=== PATIENT | male | born 1930 | race Caucasian/White ===

== ENCOUNTER → 2016-10-07 | Outpatient (CLI) | payer BC ==
[~2016-10-07] MED LIST: BIMA0.01 OPB; BTMOPS5 OPB; CALC200T PO; CALCTAB13 PO; COEN1CAP28 PO; CRD200 PO; FINA5TAB4 PO; FISHOIL PO; HMLI SC; INSDGI SC; INSPMPHMLG SQ; IPRASOL4 INH; LEVO50TA6 PO; LPT/20 PO; OMEG10007 PO; PRED10TA PO; PRVHFAIN INH; RIVA1TAB4 PO; ROSU5TAB9 PO; XRL15 PO; [UNRECOGNIZED DRUG - CODE] OPB
[2016-10-07 11:41] LABS: ESTIMATED AVERAGE GLUCOSE 157 mg/dl; HA1C FLAG Normal (Normal)
[2016-10-07 13:08] LABS: RATIO 10.4 mcg/mg (0-30.0)
== END | disposition home or self-care (01) ==
LOC: C.LAB1850 09:44
PROVIDERS: ATTEND Nurse Practitioner Family
DX: E10.49 Type 1 diabetes mellitus with other diabetic neurological complication (principal); N40.1 Benign prostatic hyperplasia with lower urinary tract symptoms

== ENCOUNTER → 2016-11-25 | Outpatient (CLI) | payer BC ==
--- NOTE | 2016-11-25 15:29 | DIAGNOSTIC IMAGING REPORT ---
ARTERIAL DOPPLER ULTRASOUND LOWER EXTREMITIES BILATERAL CLINICAL HISTORY: Absent pedal pulses COMPARISON STUDY: No previous studies for comparison. FINDINGS: Brachial arm systolic pressures were 138 mmHg on the right and 132 mmHg on the left. Posterior tibial artery systolic pressures were 118 mmHg on the right and 1 30 mmHg on the left. Dorsalis pedis arterial pressure was 1 53 mmHg on the right and 1 61 mmHg on the left. These measurements yield normal bilateral ankle arm indices of 1.1 the right and 1.2 in the left. There is biphasic flow within both common femoral, superficial femoral, popliteal, anterior tibial, posterior tibial arteries. There is monophasic flow within both peroneal arteries. No high velocity jets were visualized. Incidental note is made of a prominent left inguinal lymph node measuring 43 x 17 x 13 mm. IMPRESSION: No evidence of lower extremity arterial stenosis. Electronically signed by: Sukhwinder Márquez M.D. 11/25/2016 3:28 PM Dictated Date/Time: 11/25/2016 3:25 PM
== END | disposition home or self-care (01) ==
LOC: C.ULTR 13:26
PROVIDERS: ATTEND Physician Assistant Medical
DX: R09.89 Other specified symptoms and signs involving the circulatory and respiratory systems (principal)

== ENCOUNTER → 2017-01-06 | Outpatient (CLI) | payer BC ==
[2017-01-06 14:47] LABS: BASO % 0.9 %; BASO ABS # 0.07 K/uL (0-0.2); COMPLETE YES; EOS % 2.2 %; IG% 0.4 %; LYMPH % 10.4 %; LYMPH ABS # 0.81 K/uL (1.2-3.4); MEAN CELL VOLUME 82.6 fL (80-100); MEAN CORPUSCULAR HGB CONC 35.1 g/dl (32-36); MEAN PLATELET VOLUME 12.2 fL (7.4-10.4); MONO % 9.5 %; NEUT % 76.6 %; PLATELET COUNT 140 K/uL (130-400); RED BLOOD COUNT 5.93 M/uL (4.7-6.1); WHITE BLOOD COUNT 7.78 K/uL (4.8-10.8)
[2017-01-06 15:22] LABS: ALT/SGPT 25 U/L (12-78); AST/SGOT 24 U/L (15-37); BLOOD UREA NITROGEN 12 mg/dl (7-18); BUN/CREATININE RATIO 11.2 (10-20); CARBON DIOXIDE 26 mmol/L (21-32); CHLORIDE 106 mmol/L (98-107); CHOLESTEROL 178 mg/dl (0-200); GLUCOSE 152 mg/dl (70-99); POTASSIUM 4.3 mmol/L (3.5-5.1); SODIUM 139 mmol/L (136-145); TRIGLYCERIDES 149 mg/dl (0-150); VERY LOW DENSITY LIPOPROT CALC 30 mg/dl
[2017-01-06 15:32] LABS: ALB/GLOB RATIO 0.9 (0.9-2); ALKALINE PHOSPHATASE 93 U/L (45-117); CHOLESTEROL/HDL RATIO 3.6; HDL CHOLESTEROL 50 mg/dl; LDL CHOLESTEROL CALCULATED 98 mg/dl
[2017-01-06 15:43] LABS: CALCIUM 9.1 mg/dl (8.5-10.1)
[2017-01-07 06:43] LABS: ESTIMATED AVERAGE GLUCOSE 160 mg/dl; HA1C FLAG Normal (Normal)
--- NOTE | 2017-01-10 12:13 | CODING QUERY MEDICAL NECESSITY ---
SUPPORTING DIAGNOSIS NEEDED A supporting diagnosis is required for the test/procedure performed on this patient in order for us to be reimbursed by the patient's insurance. Please provide a supporting diagnosis for the following test/procedure listed below next to the test name along with your signature. *If there is no additional diagnosis for this patient that would support the following test/procedure please document that below next to the test/procedure. Test(s)/Procedure(s) that require a supporting diagnosis: * HEMOGLOBIN A1C DIAGNOSIS: Provider Signature: Date: Thank you Galina Begum [facility] [employer] Once completed, please kindly fax back to [phone] For questions please call [phone]
== END | disposition home or self-care (01) ==
LOC: C.LAB1850 13:34
PROVIDERS: ATTEND Internal Medicine Geriatric Medicine
DX: E78.5 Hyperlipidemia, unspecified (principal); E03.9 Hypothyroidism, unspecified; K51.90 Ulcerative colitis, unspecified, without complications; I48.0 Paroxysmal atrial fibrillation; I10 Essential (primary) hypertension; D69.6 Thrombocytopenia, unspecified; E11.9 Type 2 diabetes mellitus without complications

== ENCOUNTER → 2017-01-13 | Outpatient (CLI) | payer BC ==
--- NOTE | 2017-01-13 14:40 | DIAGNOSTIC IMAGING REPORT ---
CHEST 2 VIEWS ROUTINE CLINICAL HISTORY: R53.83 [id number] dyspnea COMPARISON STUDY: 06/05/2016 FINDINGS: Unchanging small left pleural effusion combined with chronic basilar pleural reactive change. Lungs otherwise appear clear. Mild stable cardia megaly. Several calcified mediastinal and/or hilar nodes. IMPRESSION: Chronic change primarily at the left base. No acute process. Electronically signed by: Juan R Chavez M.D. 01/13/2017 2:38 PM Dictated Date/Time: 01/13/2017 2:37 PM
[2017-01-13 17:11] LABS: URINE APPEARANCE CLEAR (CLEAR); URINE BILIRUBIN NEG (NEG); URINE COLOR DK YELLOW; URINE NITRITE NEG (NEG); URINE PH 5.5 (4.5-7.5); URINE SPECIFIC GRAVITY 1.021 (1.000-1.030); UROBILINOGEN NEG (NEG)
[2017-01-13 17:13] LABS: MANUAL MICROSCOPIC REQUIRED? NO; REVIEW REQ? NO
[2017-01-13 17:15] LABS: BASO ABS # 0.07 K/uL (0-0.2); COMPLETE YES; EOS % 1.1 %; HEMATOCRIT 49.6 % (42-52); IG% 0.3 %; LYMPH % 9.5 %; MEAN CELL VOLUME 83.9 fL (80-100); MEAN CORPUSCULAR HEMOGLOBIN 28.9 pg (25-34); MEAN CORPUSCULAR HGB CONC 34.5 g/dl (32-36); MONO % 10.5 %; NEUT % 77.6 %; PLATELET COUNT 172 K/uL (130-400); RED BLOOD COUNT 5.91 M/uL (4.7-6.1); WHITE BLOOD COUNT 7.34 K/uL (4.8-10.8)
[2017-01-13 17:25] LABS: BLOOD UREA NITROGEN 12 mg/dl (7-18); BUN/CREATININE RATIO 10.3 (10-20); CALCIUM 9.6 mg/dl (8.5-10.1); CARBON DIOXIDE 27 mmol/L (21-32); CHLORIDE 104 mmol/L (98-107); GLUCOSE 242 mg/dl (70-99); POTASSIUM 4.7 mmol/L (3.5-5.1); SODIUM 138 mmol/L (136-145)
[2017-01-13 17:54] LABS: LYME DISEASE AB IGG NEG (NEG); LYME DISEASE AB IGM NEG (NEG)
== END | disposition home or self-care (01) ==
LOC: C.LABBC 14:18
PROVIDERS: ATTEND Physician Assistant
DX: R53.83 Other fatigue (principal)

== ENCOUNTER 2017-03-01 13:16 | Inpatient (IN) | payer BC, OTHER ==
[~2017-03-01] VITALS: Ht 172.7 cm; Wt 88.5 kg
[~2017-03-01 13:16] MED LIST changes: -BIMA0.01 OPB; -BTMOPS5 OPB; -CALC200T PO; -CRD200 PO; -INSPMPHMLG SQ; -IPRASOL4 INH; -OMEG10007 PO; -PRED10TA PO; -PRVHFAIN INH; -ROSU5TAB9 PO; -XRL15 PO
[2017-03-01] MEDS ORDERED: DILTIAZEM BOLUS / DRIP IV STA ×2 (13:43→15:45)
[2017-03-01] MEDS ORDERED: SODIUM CHLORIDE 0.9% 1000ML 1,000 ML IV STA (13:43)
[2017-03-01] MEDS ORDERED: DILTIAZEM HCL 5 MG/ML 5 ML VIAL ONE (13:55)
[2017-03-01] MEDS: DILTIAZEM HCL INJ 125 MG in DEXTROSE 5% 100ML IV PRN (13:59)
--- NOTE | 2017-03-01 13:59 | EMERGENCY ROOM VISIT NOTE ---
History Report prepared by Merlin: Cata Jefferson Under the Supervision of: Dr. Kinjal Mueller D.O. First contact with patient: 13:27 Chief Complaint: IRREGULAR HEARTBEAT Stated Complaint: IRREGULAR HEARTBEAT- FLUTTERING, SOB Nursing Triage Summary: pt to the ED with c/o fluttering in his chest that started last night hx of a fib no c/o chest pain no sob History of Present Illness The patient is a 86 year old male who presents to the Emergency Room with complaints of constant irregular heartbeat starting last night. The patient states he has a history of a skipped beat and atrial fibrillation that was diagnosed about five years ago. He states he has recently been feeling fatigued and feels slightly short of breath at times. He also denies feeling dizzy, nauseous, light headedness, blood in bowel movements, or urinary symptoms.The patient also denies ever having symptoms like this before. He also has a past history of thyroid problems and is on Synthroid. EMR: Pt was seen in ED February 2015 for Atrial Fibrillation. He has a history of hypertrophic cardiomyopathy and paroxysmal afib. Source of History: patient Onset: Last night Position: other (heart) Timing: other (persistent) Associated Symptoms: + SOB, + fatigue, No nausea, No urinary symptoms Note: Pt. denies feeling dizzy, light headedness, or blood in bowel movements. Review of Systems See HPI for pertinent positives & negatives. A total of 10 systems reviewed and were otherwise negative. 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 (16) Urosepsis Family History Omitted secondary to age Social History Smoking Status: Former Smoker Alcohol Use: none Drug Use: none Marital Status: Housing Status: lives with family Occupation Status: retired Current/Historical Medications Scheduled Bimatoprost (Lumigan), 1 DROP OPB DAILY Calcium Carbonate-Vitamin D (Oscal 500/200 D-3), 2 TAB PO DAILY Coenzyme Q10 (Ubidecarenone) (Co Q10), 50 CAP PO DAILY Finasteride (Proscar), 5 MG PO DAILY Fish Oil ([place]-3), 1 CAP PO DAILY Insulin Glargine (Lantus), 25 UNITS SC BID Insulin Human Lispro (Humalog), 25 UNITS SQ BID Levothyroxine Sodium (Levothyroxine Sodium), 50 MCG PO DAILY Rivaroxaban (Xarelto), 20 MG PO DAILY Rosuvastatin Calcium (Rosuvastatin Calcium), 5 MG PO DAILY Timolol Hemihydrate (Betimol), 1 DROP OPB QPM Allergies Coded Allergies: No Known Allergies (Verified , 03/01/17) Physical Exam Vital Signs Date Time Temp Pulse Resp B/P (MAP) Pulse Ox O2 Delivery O2 Flow Rate FiO2 03/01/17 15:37 92 18 113/70 93 Room Air 03/01/17 15:00 93 18 97/68 94 Room Air 03/01/17 14:45 96 18 116/74 93 Room Air 03/01/17 14:30 100 18 105/73 93 Room Air 03/01/17 14:15 99 20 97/74 94 Room Air 03/01/17 14:05 93 20 92/66 93 Room Air 03/01/17 13:58 141 20 100/81 94 Room Air 03/01/17 13:33 150 03/01/17 13:17 36.5 137 22 139/97 94 Physical Exam GENERAL: alert, well appearing, well nourished, no distress, non-toxic EYE EXAM: normal conjunctiva, PERRL and EOM's grossly intact OROPHARYNX: no exudate, no erythema, lips, buccal mucosa, and tongue normal and mucous membranes are moist NECK: supple, no nuchal rigidity, no adenopathy, non-tender LUNGS: Clear to auscultation. Normal chest wall mechanics HEART: no murmurs, Heart rate is fast and irregular bilaterally ABDOMEN: abdomen soft, non-tender, normo-active bowel sounds, no masses, no rebound or guarding. BACK: Back is symmetrical on inspection and there is no deformity, no midline tenderness, no CVA tenderness. SKIN: no rashes and no bruising UPPER EXTREMITIES: upper extremities are grossly normal. LOWER EXTREMITIES: +1 edema NEURO EXAM: Normal sensorium. Medical Decision & Procedures ER Provider Diagnostic Interpretation: Radiology results have been interpreted by the radiologist and reviewed by me. CHEST ONE VIEW PORTABLE FINDINGS: Calcified granuloma within the right midlung zone, unchanged. The right lung is otherwise clear. The heart remains mildly enlarged. Small left pleural effusion and left basilar densities remain unchanged. No pneumothorax. Calcified mediastinal/right hilar lymph nodes. No evidence for pulmonary edema. IMPRESSION: No change from the prior study. Small left pleural effusion and left basilar density/atelectasis persist. Electronically signed by: Valentino Tran M.D. Laboratory Results 03/01/17 13:35 Red Blood Count 5.69, Mean Corpuscular Volume 83.5, Mean Corpuscular Hemoglobin 28.8, Mean Corpuscular Hemoglobin Concent 34.5, Mean Platelet Volume 13.0, Neutrophils (%) (Auto) 78.6, Lymphocytes (%) (Auto) 11.6, Monocytes (%) (Auto) 7.1, Eosinophils (%) (Auto) 2.1, Basophils (%) (Auto) 0.3, Neutrophils # (Auto) 5.31, Lymphocytes # (Auto) 0.78, Monocytes # (Auto) 0.48, Eosinophils # (Auto) 0.14, Basophils # (Auto) 0.02 03/01/17 13:35 Test 03/01/17 13:35 White Blood Count 6.75 K/uL (4.8-10.8) Red Blood Count 5.69 M/uL (4.7-6.1) Hemoglobin 16.4 g/dL (14.0-18.0) Hematocrit 47.5 % (42-52) Mean Corpuscular Volume 83.5 fL (80-100) Mean Corpuscular Hemoglobin 28.8 pg (25-34) Mean Corpuscular Hemoglobin Concent 34.5 g/dl (32-36) Platelet Count 153 K/uL (130-400) Mean Platelet Volume 13.0 fL (7.4-10.4) Neutrophils (%) (Auto) 78.6 % Lymphocytes (%) (Auto) 11.6 % Monocytes (%) (Auto) 7.1 % Eosinophils (%) (Auto) 2.1 % Basophils (%) (Auto) 0.3 % Neutrophils # (Auto) 5.31 K/uL (1.4-6.5) Lymphocytes # (Auto) 0.78 K/uL (1.2-3.4) Monocytes # (Auto) 0.48 K/uL (0.11-0.59) Eosinophils # (Auto) 0.14 K/uL (0-0.5) Basophils # (Auto) 0.02 K/uL (0-0.2) RDW Standard Deviation 43.6 fL (36.4-46.3) RDW Coefficient of Variation 14.4 % (11.5-14.5) Immature Granulocyte % (Auto) 0.3 % Immature Granulocyte # (Auto) 0.02 K/uL (0.00-0.02) Platelet Estimate DECREASED Prothrombin Time 13.0 SECONDS (9.0-12.0) Prothromb Time International Ratio 1.2 (0.9-1.1) Anion Gap 6.0 mmol/L (3-11) BUN/Creatinine Ratio 8.2 (10-20) Calcium Level 8.9 mg/dl (8.5-10.1) Magnesium Level 1.9 mg/dl (1.8-2.4) Total Bilirubin 0.9 mg/dl (0.2-1) Aspartate Amino Transf (AST/SGOT) 29 U/L (15-37) Alanine Aminotransferase (ALT/SGPT) 33 U/L (12-78) Alkaline Phosphatase 194 U/L (45-117) Pro-B-Type Natriuretic Peptide 5206 pg/ml (0-1800) Total Protein 6.5 gm/dl (6.4-8.2) Albumin 3.2 gm/dl (3.4-5.0) Globulin 3.3 gm/dl (2.5-4.0) Albumin/Globulin Ratio 1.0 (0.9-2) Thyroid Stimulating Hormone (TSH) 2.410 uIu/ml (0.300-4.500) Laboratory results per my review. Medications Administered Medications (Trade) Dose Ordered Sig/Malik Route Start Time Stop Time Status Last Admin Dose Admin Sodium Chloride 1,000 ml @ 125 mls/hr Q8H STAT IV 03/01/17 13:43 03/01/17 17:03 DC 03/01/17 14:27 125 MLS/HR Diltiazem HCl 125 mg/Dextrose 125 ml @ 0 mls/hr Q0M PRN IV 03/01/17 14:00 03/31/17 13:59 03/02/17 06:11 5 MLS/HR Diltiazem HCl (Cardizem Inj) 25 mg STK-MED ONCE .ROUTE 03/01/17 13:55 03/01/17 13:56 DC 03/01/17 13:59 10 MG Furosemide 40 mg/ Syringe 4 ml @ 4 mls/min NOW STAT IV 03/01/17 15:10 03/01/17 15:11 DC 03/01/17 15:36 4 MLS/MIN ECG Indication: other (irregualr heartbeat) Rate (beats per minute): 138 Rhythm: atrial fibrillation Findings: ST depression (on V4 V5 V6 likely rate related), T-wave inversion ( on lead I), other (Normal QRS and QT) Comparison ECG Date: 12/31/2015 Change: T wave inversion and ST depression unchanged to prior ED Course 1335: The patient was evaluated in room A9. A complete history and physical exam was performed. 1343: Diltiazem HCl 1 ea. IV, Sodium Chloride 1000 ml @ 125 mls/hr IV. 1355: Diltiazem HCl 25 mg . ROUTE 1400: Diltiazem HCl 125 mg/Dextrose 125 ml @0 mls/hr Protocol IV 1420: I reevaluated the patient he says he is feeling better and is resting comfortably. 1510: Furosemide 40 mg/Syringe 4 ml @4 mls/min IV. 1530: Lasix Inj 40 mg . ROUTE 1535: Upon reevaluation, the patient is resting. I discussed the findings and the treatment plan with the patient. He expresses agreement and understanding. I paged Dr. Lopez of the [facility] Hospitalist Service. The patient will be evaluated for further management. Medical Decision Differential diagnosis: Etiologies such as premature contractions, electrolyte abnormality, cardiac dysrhythmia, thyroid dysfunction, pulmonary embolism, infection, gastrointestinal, as well as others were entertained. Pt well appearing here despite complaints. A. fib controlled with diltiazem. Patient already anticoagulated from prior episodes of paroxysmal A. fib. Patient currently not on any rate control agent. No evidence of occult infectious etiology. Patient with known thyroid dysfunction. No other recent change in activity. Patient with increasing lower extremity edema, likely component of congestive heart failure. Unclear if A. fib contributed to congestive heart failure or vice versa. Patient felt symptomatically improved here with better control of his heart rate. Dose of Lasix ordered. Patient and aware of all results and agreeable with plan for admission for continued evaluation and treatment. Doubt occult vascular etiology. Medication Reconcilliation Current Medication List: was personally reviewed by me Blood Pressure Screening Patient's blood pressure: Normal blood pressure Blood pressure disposition: Did not require urgent referral Consults Time Called: [id number] Consulting Physician: Dr. Lopez Impression Primary Impression: Atrial fibrillation with rapid ventricular response Additional Impressions: CHF (congestive heart failure) Palpitations Critical Care I have personally spent greater than 35 minutes of critical care time in the direct management of this patient. This includes bedside care, interpretation of diagnostic studies, and testing, discussion with consultants, patient, and family members, and other required patient management activities. This 35 minutes is in excess of all separately billable procedures. Involved system: cardiac Scribe Attestation The scribe's documentation has been prepared under my direction and personally reviewed by me in its entirety. I confirm that the note above accurately reflects all work, treatment, procedures, and medical decision making performed by me. Departure Information Dispostion Being Evaluated By Hospitalist Referrals Olman Latham M.D. (PCP) Forms HOME CARE DOCUMENTATION FORM, IMPORTANT VISIT INFORMATION Patient Instructions My [facility] Problem Qualifiers Additional Impressions: CHF (congestive heart failure) Congestive heart failure type: combined Congestive heart failure chronicity: acute on chronic Qualified Codes: I50.43 - Acute on chronic combined systolic (congestive) and diastolic (congestive) heart failure
[2017-03-01 14:02] LABS: MEAN CORPUSCULAR HGB CONC 34.5 g/dl (32-36)
[2017-03-01 14:19] LABS: BUN/CREATININE RATIO 8.2 (10-20); CALCIUM 8.9 mg/dl (8.5-10.1); CREATININE 1.3 mg/dl (0.60-1.40); MAGNESIUM 1.9 mg/dl (1.8-2.4); POTASSIUM 4.2 mmol/L (3.5-5.1)
--- NOTE | 2017-03-01 14:21 | DIAGNOSTIC IMAGING REPORT ---
CHEST ONE VIEW PORTABLE HISTORY: Short of breath. palpitations COMPARISON: Chest 01/13/2017. FINDINGS: Calcified granuloma within the right midlung zone, unchanged. The right lung is otherwise clear. The heart remains mildly enlarged. Small left pleural effusion and left basilar densities remain unchanged. No pneumothorax. Calcified mediastinal/right hilar lymph nodes. No evidence for pulmonary edema. IMPRESSION: No change from the prior study. Small left pleural effusion and left basilar density/atelectasis persist. Electronically signed by: Valentino Tran M.D. 03/01/2017 2:19 PM Dictated Date/Time: 03/01/2017 2:18 PM
[2017-03-01 14:24] LABS: HEMATOCRIT 47.5 % (42-52); MEAN CELL VOLUME 83.5 fL (80-100); MEAN CORPUSCULAR HEMOGLOBIN 28.8 pg (25-34); RED BLOOD COUNT 5.69 M/uL (4.7-6.1); WHITE BLOOD COUNT 6.75 K/uL (4.8-10.8)
[2017-03-01 14:30] LABS: THYROID STIMULATING HORMONE 2.41 uIu/ml (0.300-4.500)
[2017-03-01] MEDS ORDERED: BIMA0.01 OPB (14:32)
[2017-03-01] MEDS ORDERED: ROSU5TAB9 PO (14:32)
[2017-03-01 14:33] LABS: PLATELET COUNT 153 K/uL (130-400)
[2017-03-01 14:34] LABS: BASO % 0.3 %; BASO ABS # 0.02 K/uL (0-0.2); COMPLETE YES; EOS % 2.1 %; IG% 0.3 %; LYMPH % 11.6 %; LYMPH ABS # 0.78 K/uL (1.2-3.4); MONO % 7.1 %; NEUT % 78.6 %; PLT ESTIMATE DECREASED
[2017-03-01] MEDS ORDERED: CALC200T PO (14:35)
[2017-03-01] MEDS ORDERED: INSPMPHMLG SQ (14:35)
[2017-03-01] MEDS ORDERED: BTMOPS5 OPB (14:35)
[2017-03-01] MEDS ORDERED: INSDGI SC (14:35)
[2017-03-01] MEDS ORDERED: OMEG10007 PO (14:35)
[2017-03-01] MEDS ORDERED: FUROSEMIDE INJ 40 MG in SYRINGE 0 ML IV STA (15:10)
[2017-03-01] MEDS ORDERED: FUROSEMIDE 40 MG/4 ML VIAL ONE (15:30)
[2017-03-01] MEDS ORDERED: ALUMINUM/MAGNESIUM/SIMETH (MAALOX MAX) 30 ML UDC PO PRN (15:45)
[2017-03-01] MEDS ORDERED: POLYETHYLENE (MIRALAX) 17 GM PACK PO PRN (15:45)
[2017-03-01] MEDS ORDERED: ONDANSETRON INJ 2 MG/ML 2 ML VIAL IV PRN (15:45)
[2017-03-01] MEDS ORDERED: MoRPHine SULFATE 2 MG/ML CARP IV PRN (15:45)
[2017-03-01] MEDS ORDERED: ACETAMINOPHEN 325 MG TAB PO PRN (15:45)
[2017-03-01] MEDS ORDERED: NITROGLYCERIN 0.4 MG SL PER TAB CHARGE SL PRN (15:45)
[2017-03-01] MEDS ORDERED: MAGNESIUM HYDROXIDE SUSP 30 ML UDC PO PRN (15:45)
--- NOTE | 2017-03-01 15:51 | History and Physical ---
History & Physical Date & Time of Service: Mar 01, 2017 at 15:44 Chief Complaint: Irregular Heartbeat- Fluttering, Sob Primary Care Physician: Olman Latham M.D. History of Present Illness Source: patient 86 y/o M Hx PAF, HTN, HPL, hypothyroidism, IDDM. Pt presents with complaints of lightheadedness or "feeling foggy", weakness, mild SOB, in addition to palpitations and a sensation of fullness in his chest. He denies CP, N/V or diaphoresis. On arrival to the ER his HR was > 130. Initial evaluation is consistent with rapid AF and a degree of volume overload. He is anticoagulated with Xarelto. He is on a Cardizem drip at the time of admission and will be assigned to telemetry for additional workup and management. Past Medical/Surgical History 1) Paroxysmal AF 2) HPL 3) HTN 4) Hypothyroidism 5) Colon CA - Ileostomy 1980s 6) Lung CA 7) BPH 8) DM 2 9) Pancreatitis Family History Omitted secondary to age Social History Smoking Status: Former Smoker Drug Use: none Marital Status: Housing status: lives with family Occupational Status: retired Immunizations History of Influenza Vaccine: Yes Influenza Vaccine Date: Jul 26, 2013 History of Tetanus Vaccine?: Unknown History of Pneumococcal: Yes Pneumococcal Date: Jul 26, 2013 History of Hepatitis B Vaccine: No Multi-Drug Resistant Organisms History of MDRO: No Allergies Coded Allergies: No Known Allergies (Verified , 03/01/17) Home Medications Scheduled Bimatoprost (Lumigan), 1 DROP OPB DAILY Calcium Carbonate-Vitamin D (Oscal 500/200 D-3), 2 TAB PO DAILY Coenzyme Q10 (Ubidecarenone) (Co Q10), 50 CAP PO DAILY Finasteride (Proscar), 5 MG PO DAILY Fish Oil ([place]-3), 1 CAP PO DAILY Insulin Glargine (Lantus), 25 UNITS SC BID Insulin Human Lispro (Humalog), 25 UNITS SQ BID Levothyroxine Sodium (Levothyroxine Sodium), 50 MCG PO DAILY Rivaroxaban (Xarelto), 20 MG PO DAILY Rosuvastatin Calcium (Rosuvastatin Calcium), 5 MG PO DAILY Timolol Hemihydrate (Betimol), 1 DROP OPB QPM Review of Systems Constitutional: No fever, No chills, No sweats Eyes: No worsening of vision ENT: No hearing loss, No unusual epistaxis, No nasal symptoms Respiratory: + shortness of breath, + dyspnea on exertion, + dyspnea at rest, No cough, No sputum, No wheezing Cardiovascular: No chest pain Abdomen: No pain, No nausea, No vomiting Musculoskeletal: No joint pain Genitourinary - Male: No hematuria, No dysuria Neurologic: + weakness, + problem reported (light headed "foggy"), No memory loss, No paralysis Psychiatric: No depression symptoms, No anhedonism Endocrine: + fatigue, No excessive thirst, No excessive urination Hematologic / Lymphatic: No abnormal bleeding/bruising Integumentary: No rash Allergic / Immunologic: No environmental allergies Physical Exam Vital Signs Date Time Temp Pulse Resp B/P (MAP) Pulse Ox O2 Delivery O2 Flow Rate FiO2 03/01/17 15:37 92 18 113/70 93 Room Air 03/01/17 15:00 93 18 97/68 94 Room Air 03/01/17 14:45 96 18 116/74 93 Room Air 03/01/17 14:30 100 18 105/73 93 Room Air 03/01/17 14:15 99 20 97/74 94 Room Air 03/01/17 14:05 93 20 92/66 93 Room Air 03/01/17 13:58 141 20 100/81 94 Room Air 03/01/17 13:33 150 03/01/17 13:17 36.5 137 22 139/97 94 General Appearance: WD/WN, no apparent distress Head: normocephalic Eyes: normal inspection ENT: normal ENT inspection, pharynx normal Neck: + JVD Respiratory/Chest: chest non-tender Cardiovascular: no edema, no gallop, no murmur, + JVD, + irregularly irregular Abdomen/GI: normal bowel sounds, non tender, soft Back: normal inspection, no CVA tenderness, normal range of motion Extremities/Musculoskelatal: normal inspection, no calf tenderness, normal capillary refill Neurologic/Psych: pitch flaker II-XII nml as tested, no motor/sensory deficits, alert, normal mood/affect, normal reflexes, oriented x 3 Skin: normal color, warm/dry, no rash Diagnostics Laboratory Results Results Past 24 Hours Test 03/01/17 13:35 Range/Units White Blood Count 6.75 4.8-10.8 K/uL Red Blood Count 5.69 4.7-6.1 M/uL Hemoglobin 16.4 14.0-18.0 g/dL Hematocrit 47.5 42-52 % Mean Corpuscular Volume 83.5 80-100 fL Mean Corpuscular Hemoglobin 28.8 25-34 pg Mean Corpuscular Hemoglobin Concent 34.5 32-36 g/dl Platelet Count 153 130-400 K/uL Mean Platelet Volume 13.0 7.4-10.4 fL Neutrophils (%) (Auto) 78.6 % Lymphocytes (%) (Auto) 11.6 % Monocytes (%) (Auto) 7.1 % Eosinophils (%) (Auto) 2.1 % Basophils (%) (Auto) 0.3 % Neutrophils # (Auto) 5.31 1.4-6.5 K/uL Lymphocytes # (Auto) 0.78 1.2-3.4 K/uL Monocytes # (Auto) 0.48 0.11-0.59 K/uL Eosinophils # (Auto) 0.14 0-0.5 K/uL Basophils # (Auto) 0.02 0-0.2 K/uL RDW Standard Deviation 43.6 36.4-46.3 fL RDW Coefficient of Variation 14.4 11.5-14.5 % Immature Granulocyte % (Auto) 0.3 % Immature Granulocyte # (Auto) 0.02 0.00-0.02 K/uL Platelet Estimate DECREASED Sodium Level 137 136-145 mmol/L Potassium Level 4.2 3.5-5.1 mmol/L Chloride Level 106 98-107 mmol/L Carbon Dioxide Level 25 21-32 mmol/L Anion Gap 6.0 3-11 mmol/L Blood Urea Nitrogen 11 7-18 mg/dl Creatinine 1.30 0.60-1.40 mg/dl Est Creatinine Clear Calc Drug Dose 44.9 ml/min Estimated GFR () 57.7 Estimated GFR (Non- 49.8 BUN/Creatinine Ratio 8.2 10-20 Random Glucose 293 70-99 mg/dl Calcium Level 8.9 8.5-10.1 mg/dl Magnesium Level 1.9 1.8-2.4 mg/dl Total Bilirubin 0.9 0.2-1 mg/dl Aspartate Amino Transf (AST/SGOT) 29 15-37 U/L Alanine Aminotransferase (ALT/SGPT) 33 12-78 U/L Alkaline Phosphatase 194 45-117 U/L Troponin I 0.025 0-0.045 ng/ml Pro-B-Type Natriuretic Peptide 5206 0-1800 pg/ml Total Protein 6.5 6.4-8.2 gm/dl Albumin 3.2 3.4-5.0 gm/dl Globulin 3.3 2.5-4.0 gm/dl Albumin/Globulin Ratio 1.0 0.9-2 Thyroid Stimulating Hormone (TSH) 2.410 0.300-4.500 uIu/ml Diagnostic Radiology FINDINGS: Calcified granuloma within the right midlung zone, unchanged. The right lung is otherwise clear. The heart remains mildly enlarged. Small left pleural effusion and left basilar densities remain unchanged. No pneumothorax. Calcified mediastinal/right hilar lymph nodes. No evidence for pulmonary edema. EKG AF/RVR - lat depressions Impression Assessment and Plan 86 y/o M Hx PAF, HTN, HPL, hypothyroidism, IDDM. Pt presents with complaints of lightheadedness or "feeling foggy", weakness, mild SOB, in addition to palpitations and a sensation of fullness in his chest. He denies CP, N/V or diaphoresis. On arrival to the ER his HR was > 130. Initial evaluation is consistent with rapid AF and a degree of volume overload. He is anticoagulated with Xarelto. He is on a Cardizem drip at the time of admission and will be assigned to telemetry for additional workup and management. 1) Rapid AF - pt currently on a Diltiazem drip - will cont - fully anticoagulated with Xarelto - echo pending, cardiology consulted. He does not normally take any rate control meds. We would expect his symptoms to improve with normalization of his HR. There is a degree of chest discomfort and volume overload. There are lat changes which are likely rate related. He was provided IV Lasix in the ER and we will trend his troponins - consider adding ASA if there is an upward trend. 2) DM - placed on sliding scale and will cont BID Lantus 3) Hypothyroidism - TSH WNL - cont Synthroid at prescribed dose 4) HPL - cont Crestor Full code - Anticoagulated with Xarelto Total time for this admit including review of labs, meds, EKG, imaging, records - discussion with pt and ER attending - 37min Level of Care Telemetry Resuscitation Status FULL RESUSCITATION VTE Prophylaxis VTE Risk Assessment Done? Y/N: Yes Risk Level: Moderate Given or contraindicated: Other Anticoagulation
[2017-03-01 16:36] VITALS: BP 119/76; PULSE 128; TEMP 36.3; O2SAT 96; BMI 29.7
[2017-03-01 16:52] LABS: INR 1.2 (0.9-1.1)
[2017-03-01] MEDS: RIVAROXABAN 10 MG TAB PO SCH (17:26)
[2017-03-01 18:31] LABS: URINE APPEARANCE CLEAR (CLEAR); URINE BILIRUBIN NEG (NEG); URINE COLOR YELLOW; URINE EPITHELIAL CELL AUTO 0-5 /lpf (0-5); URINE NITRITE NEG (NEG); UROBILINOGEN NEG (NEG); ZZUR CULT IF INDIC CLEAN CATCH NO
[2017-03-01 18:32] LABS: MANUAL MICROSCOPIC REQUIRED? NO; REVIEW REQ? NO
[2017-03-01 19:38] VITALS: BP 117/79; PULSE 85; TEMP 36.7; O2SAT 94
[2017-03-01] MEDS: INSULIN ASPART 100 UNITS/ML 3 ML PEN SC SCH (21:00)
[2017-03-01] MEDS: INSULIN GLARGINE SOLOSTAR 100 UNITS/ML 3 ML PEN SC SCH (21:39)
[2017-03-01 23:08] VITALS: BP 102/65; PULSE 77; TEMP 36.4; O2SAT 94
[2017-03-02] VITALS (7 sets, daily range): BP systolic 107–157; BP diastolic 66–95; PULSE 62–122; TEMP 36.2–37; O2SAT 93–96
[2017-03-02] MEDS: LEVOTHYROXINE 50 MCG TAB PO SCH (05:56)
[2017-03-02] MEDS: DILTIAZEM HCL INJ 125 MG in DEXTROSE 5% 100ML IV PRN (06:11)
[2017-03-02] MEDS: INSULIN ASPART 100 UNITS/ML 3 ML PEN SC SCH ×4 (07:00→21:12)
[2017-03-02] MEDS: FINASTERIDE 5 MG TAB PO SCH (08:40)
[2017-03-02] MEDS: OMEGA-3 (PURIFIED FISH OIL) 1 GM CAP PO SCH (08:40)
[2017-03-02] MEDS: CALCIUM CARBONATE 1250MG TAB PO SCH (08:40)
[2017-03-02] MEDS: BIMATOPROST 0.01% OP SOLN 2.5 ML BTL OPB SCH (08:40)
[2017-03-02] MEDS: ROSUVASTATIN CALCIUM 5 MG TAB PO SCH (08:40)
[2017-03-02] MEDS: INSULIN GLARGINE SOLOSTAR 100 UNITS/ML 3 ML PEN SC SCH ×2 (08:42→21:13)
[2017-03-02 10:23] LABS: CREATININE 1.1 mg/dl (0.60-1.40)
--- NOTE | 2017-03-02 10:55 | Progress Note ---
Subjective Date of Service: Mar 02, 2017. Subjective Pt evaluation today including: conversation w/ patient, physical exam, chart review, lab review, review of studies, conversation w/ vmware consultant Pain: no pain reported PO Intake: excellent Voiding: no voiding problems Pt is seen and examined by me. Pt denies cp, sob, nausea, vomiting and diarrhea. Pt states her palpitation resolve and feels much better compare to yesterday. Problem List Medical Problems: (1) Hypertrophic cardiomyopathy Status: Chronic (2) Hypoglycemia Status: Acute (3) Palpitations Status: Acute (4) Syncope, near Status: Acute Review of Systems All Other Systems: Reviewed and Negative Medications Medications (Trade) Dose Ordered Sig/Malik Route Start Time Stop Time Status Last Admin Dose Admin Sodium Chloride 1,000 ml @ 125 mls/hr Q8H STAT IV 03/01/17 13:43 03/01/17 17:03 DC 03/01/17 14:27 125 MLS/HR Diltiazem HCl 125 mg/Dextrose 125 ml @ 0 mls/hr Q0M PRN IV 03/01/17 14:00 03/31/17 13:59 03/02/17 06:11 5 MLS/HR Diltiazem HCl (Cardizem Inj) 25 mg STK-MED ONCE .ROUTE 03/01/17 13:55 03/01/17 13:56 DC 03/01/17 13:59 10 MG Furosemide 40 mg/ Syringe 4 ml @ 4 mls/min NOW STAT IV 03/01/17 15:10 03/01/17 15:11 DC 03/01/17 15:36 4 MLS/MIN Insulin Glargine (Lantus Solostar Pen) 25 units BID SC 03/01/17 21:00 03/31/17 20:59 03/01/17 21:39 25 UNITS Levothyroxine Sodium (Synthroid Tab) 50 mcg DAILYBB PO 03/02/17 06:00 04/01/17 06:59 03/02/17 05:56 50 MCG Rivaroxaban (Xarelto Tab) 20 mg QDD PO 03/01/17 17:30 03/31/17 17:29 03/01/17 17:26 20 MG Objective Vital Signs Date Time Temp Pulse Resp B/P (MAP) Pulse Ox O2 Delivery O2 Flow Rate FiO2 03/02/17 07:53 36.3 76 18 112/75 (87) 94 Room Air 03/02/17 04:00 Room Air 03/02/17 04:00 36.5 76 16 113/66 (82) 93 Room Air 03/01/17 23:59 Room Air 03/01/17 23:08 36.4 77 19 102/65 (77) 94 Room Air 03/01/17 20:00 Room Air 03/01/17 19:38 36.7 85 19 117/79 (92) 94 Room Air 03/01/17 16:36 36.3 128 18 119/76 96 Room Air 03/01/17 16:21 97 18 114/88 94 Room Air 03/01/17 15:37 92 18 113/70 93 Room Air 03/01/17 15:00 93 18 97/68 94 Room Air 03/01/17 14:45 96 18 116/74 93 Room Air 03/01/17 14:30 100 18 105/73 93 Room Air 03/01/17 14:15 99 20 97/74 94 Room Air 03/01/17 14:05 93 20 92/66 93 Room Air 03/01/17 13:58 141 20 100/81 94 Room Air 03/01/17 13:33 150 03/01/17 13:17 36.5 137 22 139/97 94 Physical Exam General Appearance: WD/WN, no apparent distress Neck: supple, no adenopathy Respiratory/Chest: chest non-tender, lungs clear, normal breath sounds, no respiratory distress Cardiovascular: no edema, no murmur, + irregularly irregular Abdomen: normal bowel sounds, non tender, soft Extremities: normal range of motion, no pedal edema, no calf tenderness Neurologic/Psychiatric: alert, normal mood/affect, oriented x 3 Skin: no rash Laboratory Results Last 24 Hours Test 03/01/17 13:35 03/01/17 17:09 03/01/17 17:30 03/01/17 18:00 White Blood Count 6.75 K/uL Red Blood Count 5.69 M/uL Hemoglobin 16.4 g/dL Hematocrit 47.5 % Mean Corpuscular Volume 83.5 fL Mean Corpuscular Hemoglobin 28.8 pg Mean Corpuscular Hemoglobin Concent 34.5 g/dl Platelet Count 153 K/uL Mean Platelet Volume 13.0 fL Neutrophils (%) (Auto) 78.6 % Lymphocytes (%) (Auto) 11.6 % Monocytes (%) (Auto) 7.1 % Eosinophils (%) (Auto) 2.1 % Basophils (%) (Auto) 0.3 % Neutrophils # (Auto) 5.31 K/uL Lymphocytes # (Auto) 0.78 K/uL Monocytes # (Auto) 0.48 K/uL Eosinophils # (Auto) 0.14 K/uL Basophils # (Auto) 0.02 K/uL RDW Standard Deviation 43.6 fL RDW Coefficient of Variation 14.4 % Immature Granulocyte % (Auto) 0.3 % Immature Granulocyte # (Auto) 0.02 K/uL Platelet Estimate DECREASED Prothrombin Time 13.0 SECONDS Prothromb Time International Ratio 1.2 Sodium Level 137 mmol/L Potassium Level 4.2 mmol/L Chloride Level 106 mmol/L Carbon Dioxide Level 25 mmol/L Anion Gap 6.0 mmol/L Blood Urea Nitrogen 11 mg/dl Creatinine 1.30 mg/dl Est Creatinine Clear Calc Drug Dose 44.9 ml/min Estimated GFR () 57.7 Estimated GFR (Non- 49.8 BUN/Creatinine Ratio 8.2 Random Glucose 293 mg/dl Calcium Level 8.9 mg/dl Magnesium Level 1.9 mg/dl Total Bilirubin 0.9 mg/dl Aspartate Amino Transf (AST/SGOT) 29 U/L Alanine Aminotransferase (ALT/SGPT) 33 U/L Alkaline Phosphatase 194 U/L Troponin I 0.025 ng/ml 0.029 ng/ml Pro-B-Type Natriuretic Peptide 5206 pg/ml Total Protein 6.5 gm/dl Albumin 3.2 gm/dl Globulin 3.3 gm/dl Albumin/Globulin Ratio 1.0 Thyroid Stimulating Hormone (TSH) 2.410 uIu/ml Bedside Glucose 131 mg/dl Urine Color YELLOW Urine Appearance CLEAR Urine pH 6.0 Urine Specific Custer 1.010 Urine Protein NEG Urine Glucose (UA) NEG Urine Ketones NEG Urine Occult Blood 1+ Urine Nitrite NEG Urine Bilirubin NEG Urine Urobilinogen NEG Urine Leukocyte Esterase NEG Urine WBC (Auto) 0 /hpf Urine RBC (Auto) 5-10 /hpf Urine Hyaline Casts (Auto) 0 /lpf Urine Epithelial Cells (Auto) 0-5 /lpf Urine Bacteria (Auto) NEG Test 03/01/17 20:42 03/01/17 23:12 03/02/17 06:42 Bedside Glucose 118 mg/dl 78 mg/dl Troponin I 0.037 ng/ml Assessment and Plan 86 y/o M Hx PAF, HTN, HPL, hypothyroidism, IDDM. Pt presents with complaints of lightheadedness or "feeling foggy", weakness, mild SOB, in addition to palpitations and a sensation of fullness in his chest. He denies CP, N/V or diaphoresis. On arrival to the ER his HR was > 130. Initial evaluation is consistent with rapid AF and a degree of volume overload. He is anticoagulated with Xarelto. He is on a Cardizem drip at the time of admission and will be assigned to telemetry for additional workup and management. 1) Rapid AF - pt currently on a Diltiazem drip - Fully anticoagulated with Xarelto - echo pending, cardiology consulted. He does not normally take any rate control meds. We would expect his symptoms to improve with normalization of his HR. Chest x-ray: No change from the prior study. Small left pleural effusion and left basilar density/atelectasis persist. 2) DM - placed on sliding scale and will cont BID Lantus 3) Hypothyroidism - TSH WNL - cont Synthroid at prescribed dose 4) HPL - cont Crestor Full code - Anticoagulated with Xarelto Continued [facility] stay due to: multiple IV medications needed Discharge planning: home
[2017-03-02] MEDS ORDERED: AMIODARONE IV BOLUS / DRIP IV STA (12:53)
[2017-03-02] MEDS ORDERED: AMIODARONE / D5W 100 ML IV ONE (13:00)
[2017-03-02] MEDS ORDERED: AMIODARONE / D5W 200 ML IV SCH (13:10)
--- NOTE | 2017-03-02 15:16 | CARDIOLOGY CONSULTATION ---
DATE OF CONSULTATION: 03/02/2017 PERTINENT HISTORY: Mr. Benjamin is an 86-year-old male admitted yesterday with symptomatic atrial fibrillation with a rapid ventricular response. This consultation was ordered to assist in his management. Of note, patient was previously followed by Dr. De Leon in our office. The patient was in his usual state of health until Friday evening when he began to note some palpitations. The patient was able to sleep Friday night, but when he woke Friday, he noted palpitations with exertional dyspnea and orthostatic dizziness. The patient actually presented to the emergency room where he was diagnosed with atrial fibrillation and a rapid ventricular response. Since starting intravenous diltiazem, his heart rate has improved and he is now without complaints. The patient carries a history of hypertrophic cardiomyopathy and has been followed by a specialist at [facility]. He was diagnosed with paroxysmal atrial fibrillation in May 2012. He refused amiodarone at that time, however, he is willing to start that medication currently. The patient has not experienced recent exertional chest pain. He further denies syncope, presyncope, PND, orthopnea, lower extremity with claudication. PAST MEDICAL HISTORY: 1. Paroxysmal atrial fibrillation. 2. Hypertrophic obstructive cardiomyopathy. 3. Hypertension. 4. Hypercholesterolemia. 5. COPD. 6. Diabetes mellitus. 7. Hypothyroidism. 8. BPH. 9. Osteoporosis. 10. Glaucoma. 11. History of lung carcinoma -- status post left lower lobectomy 2012. 12. Ulcerative colitis. 13. History of colon carcinoma. 14. 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 MEDICATIONS: 1. Xarelto 20 mg daily. 2. Crestor 5 mg at bedtime. 3. Synthroid 0.05 mg daily. 4. Timoptic 1 drop both eyes daily. 5. Insulin. 6. Proscar 5 mg b.i.d. 7. Diltiazem drip. 8. Os-Elvis 1200 mg daily. ALLERGIES: None. SOCIAL HISTORY: The patient is and lives with his . He is retired. Does not use tobacco or alcohol. FAMILY HISTORY: Noncontributory. REVIEW OF SYSTEMS: A 10-point review of systems was negative except for that described above. PHYSICAL EXAMINATION: GENERAL: This is a well-developed, well-nourished white male in no acute distress. VITAL SIGNS: Blood pressure is 150/80 with an irregular pulse of 78, respiratory rate is 18 and the patient is afebrile at 36.7 degrees Celsius. Saturation is 95% on room air. HEENT: Negative. NECK: Supple. Full carotid upstrokes. No carotid bruits. Jugular venous pressure is flat at 90 degrees. There is no thyromegaly. CARDIOVASCULAR: Reveals an irregular, irregular rhythm with distant heart sounds. No obvious murmurs. No S3. LUNGS: Clear without rales, rhonchi, or wheezes. ABDOMEN: Soft without bruits. The ileostomy noted in the right lower quadrant. EXTREMITIES: Reveal intact radial artery pulses bilaterally. There is no peripheral edema. DATA: CBC notes hemoglobin 16.4, hematocrit 42.5, white count 6.7, platelet count 153,000. Electrolytes note a sodium of 137, potassium 4.2, chloride 106, bicarb 25, BUN 11, creatinine 1.3, and magnesium 1.9. Troponin I levels have been normal at 0.025, 0.029, and 0.037. BNP mildly elevated at 5206. TSH normal at 2.4. EKG notes atrial fibrillation with rapid ventricular response. There is evidence of left ventricular hypertrophy and repolarization changes. Chest x-ray shows a small left pleural effusion. IMPRESSION: Mr. Benjamin was admitted with symptomatic atrial fibrillation with a rapid ventricular response. This has been noted several times previously. We have discussed a trial of intravenous followed by oral amiodarone. His renal function is borderline and may require decreasing his dose of Xarelto. PLAN: 1. I agree with continuing his diltiazem. 2. Continue all of the outpatient medications. 3. Intravenous amiodarone per protocol. 4. Consider decreasing Xarelto dose if renal insufficiency confirmed. 5. Further recommendation depending on his clinical course.
[2017-03-02] MEDS: RIVAROXABAN 10 MG TAB PO SCH (17:17)
[2017-03-02] MEDS: AMIODARONE / D5W 200 ML IV SCH (19:10)
[2017-03-03] VITALS (7 sets, daily range): BP systolic 110–154; BP diastolic 50–76; PULSE 57–74; TEMP 36.1–37; O2SAT 94–96; Ht 172.7 cm; Wt 88.5 kg
[2017-03-03] MEDS: LEVOTHYROXINE 50 MCG TAB PO SCH (06:06)
[2017-03-03] MEDS: INSULIN ASPART 100 UNITS/ML 3 ML PEN SC SCH ×3 (07:54→16:15)
--- NOTE | 2017-03-03 08:38 | ECHOCARDIOGRAM REPORT ---
*NOTICE TO RECEIVING DEMOCRAT AGENCY This information is strictly Confidential and protected under [place] law. [place] law prohibits you from making any further disclosure of this information unless further disclosure is expressly permitted by the written consent of the person to whom it pertains or is authorized by law. A general authorization for the release of medical or other information is not sufficient for this purpose. Hospital accepts no responsibility if the information is made available to any other person, INCLUDING THE PATIENT. Interpretation Summary * Name: RIGO LUTZ Study Date: 03/02/2017 07:32 AM BP: 113/66 mmHg * Patient Location: C.2T\S\S230\S\2 HR: 76 * : 1930 (M/d/yyyy) Gender: Male Height: 68 in * Age: 86 yrs Ethnicity: CA Weight: 195 lb * Ordering Physician: Eleazar Lopez * Performed By: Eryn Natarajan * * Reason For Study: CHF * BSA: 2.0 m2 * -- Conclusions -- * The left ventricle is hyperdynamic. * No regional wall motion abnormalities noted. * The echo findings are consistent with hypertrophic cardiomyopathy. * Ejection Fraction = >70 %. * There is mild tricuspid regurgitation. Procedure Details * A complete two-dimensional transthoracic echocardiogram was performed (2D, M-mode, Doppler and color flow Doppler). * The study was technically difficult. * A contrast injection of Definity was performed to improve assessment of LV function. * Contrast was injected into an intravenous site in the left arm. * One vial of Definity ultrasound contrast was diluted in normal saline to a total volume of 10 ml. A total of '2' ml of solution was administered during imaging. * Lot # [id number] of Definity utilized for procedure. * Expiration date 03/07. * The attending nurse who injected the contrast agent was AMADOU SANCHEZ RN. Left Ventricle * The left ventricular cavity is small. * The echo findings are consistent with hypertrophic cardiomyopathy. * The echo findings are consistent with left ventricular outflow obstruction. * Ejection Fraction = >70 %. * The left ventricle is hyperdynamic. * No regional wall motion abnormalities noted. Mitral Valve * There is systolic anterior motion of the chordal apparatus. * The mitral valve leaflets appear thickened, but open well. * There is no mitral valve stenosis. * Significant mitral regurgitation is absent. Tricuspid Valve * The tricuspid valve is not well visualized, but is grossly normal. * There is mild tricuspid regurgitation. Great Vessels * The aortic root is normal size. * The pulmonary is not well visualized. Pericardium/Pleural * There is no pericardial effusion. Great Vessels * Normal inferior vena cava size and collapsability with sniff indicates a normal right atrial pressure of 3 mmHg MMode 2D Measurements and Calculations IVSd 1.6 cm IVSs 2.0 cm LVIDd 3.7 cm LVIDs 2.2 cm LVPWd 1.4 cm LVPWs 1.8 cm IVS/LVPW 1.2 FS 41.3 % EDV(Teich) 57.9 ml ESV(Teich) 15.7 ml EF(Teich) 73.0 % EDV(cubed) 50.4 ml ESV(cubed) 10.2 ml EF(cubed) 79.7 % % IVS thick 19.0 % % LVPW thick 28.6 % LV mass(C)d 209.9 grams LV mass(C)dI 103.8 grams/m\S\2 LV mass(C)s 162.0 grams LV mass(C)sI 80.1 grams/m\S\2 SV(Teich) 42.3 ml SI(Teich) 20.9 ml/m\S\2 SV(cubed) 40.2 ml SI(cubed) 19.9 ml/m\S\2 ACS 1.2 cm asc Aorta Diam 2.5 cm LVOT diam 1.9 cm LVOT area 2.7 cm\S\2 LVAd ap4 26.4 cm\S\2 LVLd ap4 8.1 cm EDV(MOD-sp4) 70.3 ml EDV(sp4-el) 73.0 ml LVAs ap4 11.8 cm\S\2 LVLs ap4 6.5 cm ESV(MOD-sp4) 17.1 ml ESV(sp4-el) 18.1 ml EF(MOD-sp4) 75.7 % EF(sp4-el) 75.2 % LVAd ap2 29.8 cm\S\2 LVLd ap2 7.9 cm EDV(MOD-sp2) 92.4 ml EDV(sp2-el) 94.9 ml LVAs ap2 12.9 cm\S\2 LVLs ap2 6.4 cm ESV(MOD-sp2) 21.8 ml ESV(sp2-el) 22.2 ml EF(MOD-sp2) 76.3 % EF(sp2-el) 76.7 % LVLd %diff -2.13 % EDV(MOD-bp) 79.9 ml LVLs %diff -1.90 % ESV(MOD-bp) 19.4 ml EF(MOD-bp) 75.8 % SV(MOD-sp4) 53.2 ml SI(MOD-sp4) 26.3 ml/m\S\2 SV(MOD-sp2) 70.5 ml SI(MOD-sp2) 34.9 ml/m\S\2 SV(MOD-bp) 60.6 ml SI(MOD-bp) 30.0 ml/m\S\2 SV(sp4-el) 54.9 ml SI(sp4-el) 27.2 ml/m\S\2 SV(sp2-el) 72.8 ml SI(sp2-el) 36.0 ml/m\S\2 Doppler Measurements and Calculations MV E max yola 105.7 cm/sec MV dec time 0.17 sec Ao V2 max 219.3 cm/sec Ao max PG 19.3 mmHg Ao max PG (full) 11.6 mmHg Ao V2 mean 138.5 cm/sec Ao mean PG 9.5 mmHg Ao V2 VTI 38.5 cm MARCELINO(V,A) 1.7 cm\S\2 MARCELINO(V,D) 1.7 cm\S\2 LV V1 max PG 7.7 mmHg LV V1 max 138.4 cm/sec PA V2 max 53.4 cm/sec PA max PG 1.1 mmHg TR max yola 226.8 cm/sec
[2017-03-03] MEDS: AMIODARONE / D5W 200 ML IV SCH (08:42)
[2017-03-03] MEDS: ROSUVASTATIN CALCIUM 5 MG TAB PO SCH (08:43)
[2017-03-03] MEDS: BIMATOPROST 0.01% OP SOLN 2.5 ML BTL OPB SCH (08:43)
[2017-03-03] MEDS: FINASTERIDE 5 MG TAB PO SCH (08:43)
[2017-03-03] MEDS: OMEGA-3 (PURIFIED FISH OIL) 1 GM CAP PO SCH (08:43)
[2017-03-03] MEDS: INSULIN GLARGINE SOLOSTAR 100 UNITS/ML 3 ML PEN SC SCH (08:44)
[2017-03-03 08:45] LABS: BASO % 0.9 %; BASO ABS # 0.05 K/uL (0-0.2); COMPLETE YES; EOS % 2.1 %; HEMATOCRIT 48.6 % (42-52); IG% 0.2 %; LYMPH % 6.4 %; LYMPH ABS # 0.36 K/uL (1.2-3.4); MEAN CELL VOLUME 84.4 fL (80-100); MEAN CORPUSCULAR HEMOGLOBIN 28.6 pg (25-34); MEAN PLATELET VOLUME 11.9 fL (7.4-10.4); NEUT % 79.4 %; PLATELET COUNT 149 K/uL (130-400); RED BLOOD COUNT 5.76 M/uL (4.7-6.1); WHITE BLOOD COUNT 5.63 K/uL (4.8-10.8)
[2017-03-03 09:07] LABS: CALCIUM 9.2 mg/dl (8.5-10.1); CREATININE 1.2 mg/dl (0.60-1.40); MAGNESIUM 1.9 mg/dl (1.8-2.4); POTASSIUM 4.4 mmol/L (3.5-5.1)
--- NOTE | 2017-03-03 09:49 | CARDIOLOGY PROGRESS NOTE ---
DATE: 03/03/2017 SUBJECTIVE: Mr. Benjamin is resting comfortably in bed without complaints of chest pain, dyspnea, or palpitations. OBJECTIVE: VITAL SIGNS: Blood pressure 125/76 with a regular pulse of 60. Respiratory rate is 18 and the patient is afebrile at 36.8 degrees Celsius. Saturations 96% on room air. NECK: Supple with full carotid upstrokes. No obvious bruits. Jugular venous pressure is flat at 90 degrees. There is no thyromegaly. CARDIOVASCULAR: Reveals a regular rhythm with a normal S1 and S2. Heart sounds are distant. No obvious murmurs. LUNGS: Clear without rales, rhonchi, or wheezes. ABDOMEN: Soft and nontender without bruits. An ileostomy is noted. EXTREMITIES: Reveal intact radial artery pulses bilaterally. There is no peripheral edema. LABORATORY DATA: CBC notes a hemoglobin 16.5, hematocrit 48.6, white count 5.6, and platelet count 149,000. Electrolytes notes a sodium 136, potassium 4.4, chloride 101, bicarb 32, BUN 11, creatinine 1.2, and glucose 250. youth nutritional monitor noted conversion to sinus rhythm at approximately 12:50 this morning. There was a 2.5-second pause at that time of conversion. IMPRESSION AND PLAN: 1. Paroxysmal atrial fibrillation - the patient has converted to sinus rhythm on amiodarone. We will switch from IV to oral dosing at 200 mg b.i.d. May consider adjusting dose of Xarelto as his renal function is borderline. 2. Hypertrophic obstructive cardiomyopathy - echocardiogram performed yesterday notes a low gradient across the outflow tract. Continue medical management. 3. Hypertension - controlled. 4. Hypercholesterolemia - continue statin. 5. Disposition - stable for hospital discharge from a cardiac perspective. [facility]
--- NOTE | 2017-03-03 10:32 | Clinical Documentation Query ---
CHARLOTTE Sams : CLINICAL DOCUMENTATION QUERY Patient is an 86 year old male admitted for evaluation and treatment of rapid atrial fibrillation. He was noted in the ED to have "likely component of congestive heart failure". He was treated with IV Lasix in addition to ongoing rate and rhythm control measures. History of hypertrophic CM. Echocardiogram demonstrated an estimated LVEF of > 70%. As appropriate, consider clarification as suggested below. Thank you. In your clinical opinion is this patient being managed for: ( x) possible Acute diastolic CHF, POA, or secondary to rapid afib, resolved. ( ) Other explanation of clinical findings (Please Explain) ( ) Unable to determine (Please Define) ( ) Need to Discuss ( ) Not Agree The medical record reflects the following clinical findings, treatment, and risk factors. Clinical Indicators: As above Treatment: IV Lasix, echocardiogram, cardiology consultation. Risk Factors: Age, rapid atrial fibrillation, hypertrophic cardiomyopathy Please clarify and document your clinical opinion in the progress notes and discharge summary. Terms such as "probable", "suspected", "likely", "questionable", "possible", or "still to be ruled out" are acceptable. IF IN AGREEMENT, YOU MUST DOCUMENT ABOVE DIAGNOSTIC STATEMENT IN DAILY PROGRESS NOTES AND DISCHARGE SUMMARY. This document is not part of the patient's record. Thank You, Gerson Garcia, ALANA [phone]
[2017-03-03] MEDS: CALCIUM CARBONATE 1250MG TAB PO SCH (10:55)
[2017-03-03] MEDS ORDERED: AMIODARONE 200 MG TAB PO ONE (12:00)
[2017-03-03] MEDS ORDERED: XRL15 PO (12:06)
[2017-03-03] MEDS ORDERED: CRD200 PO (12:06)
--- NOTE | 2017-03-03 12:06 | Discharge Instructions ---
Discharge Instructions Date of Service Mar 03, 2017. Admission Reason for Admission: Atrial Fibrillation W/ Ventricular Pressure, Chf Discharge Discharge Diagnosis / Problem: Afib with RVR Discharge Goals Goal(s): Decrease discomfort, Improve function, Increase independence, Improve disease control, Improve nutritional status, Learn about illness, Diagnostic testing, Therapeutic intervention, Prevent Disease Progression, Specific goals Activity Recommendations Activity Limitations: resume your previous activity . Instructions / Follow-Up Instructions / Follow-Up you have Paroxysmal atrial fibrillation was converted to sinus rhythm on amiodarone. has switched from IV to oral dosing at 200 mg twice daily upon discharge , I have adjusted dose of Xarelto to 15 mg orally daily as your renal function is borderline low - you need to follow up with your primary care physician in 1 week, - follow up with sheet metal worker helper in 2-3 weeks, or as instructed - take medication as instructed, never overdose or any misuse, or take with alcohol, because misuse of medicine may cause organ damage or , call your primary care physician if have questions of medicaitons. - call your primary care physician OR go to local emergency room if has any fever/chill, chest pain, shortness of breathing, nausea/vomiting/abdominal pain , facial droop/slurry speech/local weakness, or if has any questions. - fall precaution - diet as instructed - you need to follow up with your subspecialist - you should understand that it is important to follow up the above instruction , and "not following the above instruction" may cause delayed or missed care of your medical conditions which may cause permanent organ damage and even . Current Hospital Diet Patient's current hospital diet: AHA Diet (Heart Healthy), Diabetes Type 2 Diet Discharge Diet Recommended Diet: Diabetes Type 2 Diet Pending Studies Studies pending at discharge: no Laboratory Results Hemoglobin A1c Test 01/06/17 13:37 Range/Units Estimated Average Glucose 160 mg/dl Hemoglobin A1c 7.2 H 4.5-5.6 % Lipid Panel Test 01/06/17 13:37 Range/Units Triglycerides Level 149 0-150 mg/dl Cholesterol Level 178 0-200 mg/dl HDL Cholesterol 50 mg/dl Cholesterol/HDL Ratio 3.6 LDL Cholesterol, Calculated 98 mg/dl Medical Emergencies . Who to Call and When: Medical Emergencies: If at any time you feel your situation is an emergency, please call 911 immediately. . Non-Emergent Contact Non-Emergency issues call your: Primary Care Provider, Senior Manager [employer] . . "Provider Documentation" section prepared by Neo Alexander. . VTE Core Measure Inpt VTE Proph given/why not?: Other Anticoagulation
--- NOTE | 2017-03-03 12:22 | Discharge Summary ---
Discharge Summary Date of Service Mar 03, 2017. Discharge Summary Admission Date: Mar 01, 2017 at 15:42 Discharge Date: Mar 03, 2017 Discharge Disposition: Home Principal Diagnosis: A. fib with RVR Problems/Secondary Diagnoses: (1) Hypertrophic cardiomyopathy Status: Chronic Immunizations: Have You Had Influenza Vaccine: Yes Influenza Vaccine Date: Jul 26, 2013 History of Tetanus Vaccine?: Unknown History of Pneumococcal: Yes Pneumococcal Date: Jul 26, 2013 History of Hepatitis B Vaccine: No Procedures: No Consultations: Radiologist Medication Reconciliation New Medications: Amiodarone HCl (Amiodarone HCl) 200 Mg Tab 200 MG PO BID for 30 Days, #60 TAB Rivaroxaban (Xarelto) 15 Mg Tab 15 MG PO DAILY for 30 Days, #30 TAB Continued Medications: Bimatoprost (Lumigan) 0.01 % Perla 1 DROP OPB DAILY, #7 Calcium Carbonate-Vitamin D (Oscal 500/200 D-3) 1 Tab Tab 2 TAB PO DAILY Coenzyme Q10 (Ubidecarenone) (Co Q10) 50 Mg Cap 50 CAP PO DAILY, CAP Finasteride (Proscar) 5 Mg Tab 5 MG PO DAILY, #90 Fish Oil (Cheriton-3) 1 Ea Cap 1 CAP PO DAILY, CAP Insulin Glargine (Lantus) 100 Unit/Ml Inj 25 UNITS SC BID, VIAL Insulin Human Lispro (Humalog) 1 Ea Inj 25 UNITS SQ BID Levothyroxine Sodium (Levothyroxine Sodium) 50 Mcg Tab 50 MCG PO DAILY, #90 Rosuvastatin Calcium (Rosuvastatin Calcium) 5 Mg Tab 5 MG PO DAILY, #36 Timolol Hemihydrate (Betimol) 75 Drops/5 Ml Soln 1 DROP OPB QPM Discontinued Medications: Rivaroxaban (Xarelto) 20 Mg Tab 20 MG PO DAILY, TAB Discharge Exam Patient up and eating lunch, no complaining, eager to go home Review of Systems: Constitutional: No fever, No chills, No sweats, No weight loss, No weakness , No fatigue, No problem reported Eyes: No worsening of vision, No eye pain, No redness, No discharge, No diplopia, No problem reported ENT: No hearing loss, No unusual epistaxis, No nasal symptoms, No sore throat, No tinnitus, No dental problems, No trouble swallowing, No problem reported Respiratory: No cough, No sputum, No wheezing, No shortness of breath, No dyspnea on exertion, No dyspnea at rest, No hemoptysis, No problem reported Cardiovascular: No chest pain, No orthopnea, No PND, No edema, No claudication, No palpitations, No problem reported Abdomen: No pain, No nausea, No vomiting, No diarrhea, No constipation, No GI bleeding, No problem reported Musculoskeletal: No joint pain, No muscle pain, No swelling, No calf pain, No problem reported Genitourinary - Male: No hematuria, No dysuria, No urinary frequency, No urinary urgency, No urinary hesitancy, No urinary retention, No urinary incontinence, No penile discharge, No lesions, No impotence, No problem reported Neurologic: No memory loss, No paralysis, No weakness, No numbness/tingling , No vertigo, No balance problems, No problem reported Psychiatric: No depression symptoms, No anhedonism, No anxiety, No insomnia , No substance abuse, No problem reported Hematologic / Lymphatic: No abnormal bleeding/bruising, No clotting problems , No swollen lymph nodes, No night sweats, No problem reported Integumentary: No rash, No itch, No new/changing skin lesions, No color change, No bleeding, No problem reported Physical Exam: General Appearance: WD/WN, no apparent distress Eyes: normal inspection, PERRL, EOMI ENT: normal ENT inspection, hearing grossly normal, TMs normal Neck: supple, no adenopathy, thyroid normal Respiratory/Chest: chest non-tender, no respiratory distress, no accessory muscle use, + decreased breath sounds Cardiovascular: regular rate, rhythm, no edema, no gallop, no JVD, no murmur , normal peripheral pulses Abdomen / GI: normal bowel sounds, non tender, soft, no organomegaly, no pulsatile mass Extremities: normal inspection, no calf tenderness, normal capillary refill , no pedal edema, normal range of motion Neurologic/Psychiatric: camera engineer II-XII nml as tested, no motor/sensory deficits , alert, normal mood/affect, normal reflexes, oriented x 3 Skin: normal color, warm/dry Hospital Course 86 y/o M Hx PAF, HTN, HPL, hypothyroidism, IDDM. Pt was presented with complaints of lightheadedness or "feeling foggy", weakness , mild SOB, in addition to palpitations and a sensation of fullness in his chest. He denies CP, N/V or diaphoresis. On arrival to the ER his HR was > 130. Initial evaluation is consistent with rapid AF and a degree of volume overload. He is anticoagulated with Xarelto. He is on a Cardizem drip at the time of admission and will be assigned to telemetry for additional workup and management. He was admitted on March 01 2017 because of A. fib with RVR, has been in NSR Was on a Diltiazem drip , later changed to amiodarone IV, cardiology saw patient today, recommended switch amiodarone IV to amiodarone by mouth at 200 mg by mouth twice a day Patient has been Fully anticoagulated with Xarelto , Per recommendation from sand caster apprentice, I changed Xarelto to 15 mg by mouth daily for stroke prophylaxis, because of his GFR is in borderline low Echocardiogram was done in this hospitalization, per report the results in below : * The left ventricle is hyperdynamic. * No regional wall motion abnormalities noted. * The echo findings are consistent with hypertrophic cardiomyopathy. * Ejection Fraction = >70 %. * There is mild tricuspid regurgitation. DM - placed on sliding scale and will cont BID Lantus, has been stable, HbA1c not checked in these hospitalization, PCP please follow-up 3) Hypothyroidism - TSH WNL - cont Synthroid at prescribed dose 4) HPL - cont Crestor Full code - Anticoagulated with Xarelto I was recommending patient to wait until heart rate continue to be stable after switching IV amiodarone to by mouth, increase activity, watch heart rate, However he is really eager to go home, I have ordered that he can go home in late afternoon if heart rate continued to be stable and stays in normal sinus resume. Patient want to go home with all risks by himself Instructions / Follow-Up you have Paroxysmal atrial fibrillation was converted to sinus rhythm on amiodarone. has switched from IV to oral dosing at 200 mg twice daily upon discharge , I have adjusted dose of Xarelto to 15 mg orally daily as your renal function is borderline low - you need to follow up with your primary care physician in 1 week, - follow up with sand caster apprentice in 2-3 weeks, or as instructed - take medication as instructed, never overdose or any misuse, or take with alcohol, because misuse of medicine may cause organ damage or , call your primary care physician if have questions of medications. - call your primary care physician OR go to local emergency room if has any fever/chill, chest pain, shortness of breathing, nausea/vomiting/abdominal pain , facial droop/slurry speech/local weakness, or if has any questions. - fall precaution - diet as instructed - you need to follow up with your subspecialist - you should understand that it is important to follow up the above instruction , and "not following the above instruction" may cause delayed or missed care of your medical conditions which may cause permanent organ damage and even . Total Time Spent: Greater than 30 minutes This includes examination of the patient, discharge planning, medication reconciliation, and communication with other providers. Discharge Instructions Please refer to the electronic Patient Visit Report (Discharge Instructions) for additional information. Additional Copies To Kendall Goncalves M.D.; Olman Latham M.D.
[2017-03-03] MEDS ORDERED: RIVAROXABAN TAB 15 MG TAB PO SCH (16:45)
[2017-03-03] MEDS ORDERED: AMIODARONE 200 MG TAB PO SCH (21:00)
[2017-03-04] MEDS ORDERED: AMIODARONE 200 MG TAB PO ONE (12:00)
== END 2017-03-03 16:45 | disposition home or self-care (01) | DRG 308 ==
LOC: C.EDB 13:17 → C.2T 15:42 → ENRESERV 15:54
PROVIDERS: ADMIT Internal Medicine; ATTEND Hospitalist
DX: I48.91 Unspecified atrial fibrillation (principal); I50.31 Acute diastolic (congestive) heart failure; E03.9 Hypothyroidism, unspecified; E11.9 Type 2 diabetes mellitus without complications; J44.9 Chronic obstructive pulmonary disease, unspecified; Z85.118 Personal history of other malignant neoplasm of bronchus and lung; Z79.01 Long term (current) use of anticoagulants

== ENCOUNTER 2017-03-21 11:04 | Inpatient (IN) | payer BC, OTHER ==
[2017-03-21] VITALS (7 sets, daily range): BP systolic 109–123; BP diastolic 66–77; PULSE 68–104; TEMP 36.4–36.7; O2SAT 94–98; Ht 172.7 cm; Wt 86.7 kg
[~2017-03-21] VITALS: Ht 172.7 cm; Wt 86.7 kg
[~2017-03-21 11:04] MED LIST changes: +BIMA0.01 OPB; +BTMOPS5 OPB; +CALC200T PO; -CALCTAB13 PO; +CRD200 PO; -FISHOIL PO; -HMLI SC; +INSPMPHMLG SQ; -LPT/20 PO; +OMEG10007 PO; -RIVA1TAB4 PO; +ROSU5TAB9 PO; +XRL15 PO; -[UNRECOGNIZED DRUG - CODE] OPB
--- NOTE | 2017-03-21 11:53 | EMERGENCY ROOM VISIT NOTE ---
History Report prepared by Merlin: Nahomi Bartlett Under the Supervision of: Dr. Blaine Li M.D. First contact with patient: 11:43 Chief Complaint: SHORTNESS OF BREATH Stated Complaint: SHORT OF BREATH-DIZZINESS Nursing Triage Summary: Pt arrives to room via w/c. Pt reports three day hx of moist productive cough, osorio/green sputum and congestion. Spo2 90%. Applied 2/l. Pt reports increased sob today. Increased weakness. Pt fell last night. Did not hit head and was able to get up from the floor. Pt on Xarelto. PMH: AFIB. DM/insulin dependent. Ileostomy. Lung cancer, LL lobectomy. Heart murmur. History of Present Illness The patient is an 86 year old male who presents to the Emergency Room with complaints of persistent shortness of breath that began three days ago. The patient states that over the past three days he has been experiencing shortness of breath, but note that it increased today. He additionally reports weakness today. The patient states that he has had a productive cough, stating that he brings up osorio and green sputum. He states that he has been feeling congested. The patient denies any fever. He denies being on any Lasix. The patient reports that he has a history of lung cancer, noting a previous lobectomy. Source of History: patient Onset: three days ago Position: other (global) Quality: other (shortness of breath) Timing: other (persistent) Associated Symptoms: + cough (productive, green/osorio sputum), + weakness, No fevers Note: Associated Symptoms: congestion Review of Systems See HPI for pertinent positives & negatives. A total of 10 systems reviewed and were otherwise negative. 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 (16) Urosepsis Family History Diabetes mellitus Heart disease Hypertension Social History Smoking Status: Former Smoker Alcohol Use: occasionally Drug Use: none Marital Status: Housing Status: lives with family Occupation Status: retired Current/Historical Medications Scheduled Amiodarone HCl (Amiodarone HCl), 200 MG PO BID Bimatoprost (Lumigan), 1 DROP OPB DAILY Calcium Carbonate-Vitamin D (Oscal 500/200 D-3), 2 TAB PO DAILY Coenzyme Q10 (Ubidecarenone) (Co Q10), 50 CAP PO DAILY Finasteride (Proscar), 5 MG PO DAILY Fish Oil (Meridian-3), 1 CAP PO DAILY Insulin Glargine (Lantus), 25 UNITS SC BID Insulin Human Lispro (Humalog), 25 UNITS SQ BID Levothyroxine Sodium (Levothyroxine Sodium), 50 MCG PO DAILY Rivaroxaban (Xarelto), 15 MG PO DAILY Rosuvastatin Calcium (Rosuvastatin Calcium), 5 MG PO DAILY Timolol Hemihydrate (Betimol), 1 DROP OPB QPM Allergies Coded Allergies: No Known Allergies (Verified , 03/01/17) Physical Exam Vital Signs Date Time Temp Pulse Resp B/P (MAP) Pulse Ox O2 Delivery O2 Flow Rate FiO2 03/21/17 14:49 108 23 136/74 94 Nasal Cannula 2.0 03/21/17 13:51 107 24 119/70 93 Nasal Cannula 2.0 03/21/17 13:18 101 25 126/91 89 Room Air 03/21/17 13:16 101 03/21/17 12:29 73 23 117/66 95 Nebulizer 03/21/17 12:11 68 15 95 Nasal Cannula 2.0 03/21/17 11:54 90 Room Air 03/21/17 11:54 94 Nasal Cannula 03/21/17 11:19 Room Air 03/21/17 11:18 78 03/21/17 11:07 36.6 94 22 130/78 92 Room Air Physical Exam GENERAL: Patient is a healthy-appearing well-nourished male HEAD: Normocephalic atraumatic EYES: Ocular movements intact pupils equal and react to light OROPHARYNX mucous membranes are moist no exudates present no erythema or edema present NECK: Supple no nuchal rigidity CHEST: Good equal expansion LUNGS: Wheezes noted bilaterally to auscultation. CARDIAC: Normal S1 and S2 ABDOMEN: Soft nontender no guarding BACK: No CVA tenderness EXTREMITIES: No pain upon palpation normal muscle strength in all groups no clubbing cyanosis or edema NEURO: Patient is following commands and answering questions appropriately. Alert and oriented x3 Cranial Nerves 2-12 grossly intact Medical Decision & Procedures ER Provider Diagnostic Interpretation: X-ray results as stated below per interpretation by me and the radiologist: CHEST ONE VIEW PORTABLE CLINICAL HISTORY: Hypoxia. COMPARISON STUDY: Chest radiograph March 01, 2017. FINDINGS: Left hemithorax volume loss is again noted. This is unchanged. There is no pneumothorax. There may be a trace left pleural effusion. This is unchanged. Pulmonary vascularity is normal. No consolidation is identified. Mild cardiomegaly is unchanged. A calcified right lung nodule is incidentally noted. There are calcified mediastinal and hilar lymph nodes. IMPRESSION: No acute cardiopulmonary findings. No change in appearance of the chest. Electronically signed by: iBb Castanon M.D. 03/21/2017 12:25 PM Dictated Date/Time: 03/21/2017 12:23 PM Laboratory Results 03/21/17 11:45 Red Blood Count 5.92, Mean Corpuscular Volume 82.3, Mean Corpuscular Hemoglobin 28.9, Mean Corpuscular Hemoglobin Concent 35.1, Mean Platelet Volume 11.3, Neutrophils (%) (Auto) 83.9, Lymphocytes (%) (Auto) 4.5, Monocytes (%) (Auto) 8.4, Eosinophils (%) (Auto) 2.5, Basophils (%) (Auto) 0.4, Neutrophils # (Auto) 7.79, Lymphocytes # (Auto) 0.42, Monocytes # (Auto) 0.78, Eosinophils # (Auto) 0.23, Basophils # (Auto) 0.04 03/21/17 11:45 Test 03/21/17 11:45 03/21/17 13:05 White Blood Count 9.29 K/uL (4.8-10.8) Red Blood Count 5.92 M/uL (4.7-6.1) Hemoglobin 17.1 g/dL (14.0-18.0) Hematocrit 48.7 % (42-52) Mean Corpuscular Volume 82.3 fL (80-100) Mean Corpuscular Hemoglobin 28.9 pg (25-34) Mean Corpuscular Hemoglobin Concent 35.1 g/dl (32-36) Platelet Count 109 K/uL (130-400) Mean Platelet Volume 11.3 fL (7.4-10.4) Neutrophils (%) (Auto) 83.9 % Lymphocytes (%) (Auto) 4.5 % Monocytes (%) (Auto) 8.4 % Eosinophils (%) (Auto) 2.5 % Basophils (%) (Auto) 0.4 % Neutrophils # (Auto) 7.79 K/uL (1.4-6.5) Lymphocytes # (Auto) 0.42 K/uL (1.2-3.4) Monocytes # (Auto) 0.78 K/uL (0.11-0.59) Eosinophils # (Auto) 0.23 K/uL (0-0.5) Basophils # (Auto) 0.04 K/uL (0-0.2) RDW Standard Deviation 42.7 fL (36.4-46.3) RDW Coefficient of Variation 14.1 % (11.5-14.5) Immature Granulocyte % (Auto) 0.3 % Immature Granulocyte # (Auto) 0.03 K/uL (0.00-0.02) Prothrombin Time 13.4 SECONDS (9.0-12.0) Prothromb Time International Ratio 1.2 (0.9-1.1) Activated Partial Thromboplast Time 33.5 SECONDS (21.0-31.0) Partial Thromboplastin Ratio 1.3 Anion Gap 6.0 mmol/L (3-11) Est Creatinine Clear Calc Drug Dose 57.4 ml/min Estimated GFR () 79.2 Estimated GFR (Non- 68.3 BUN/Creatinine Ratio 9.1 (10-20) Calcium Level 8.5 mg/dl (8.5-10.1) Total Bilirubin 1.8 mg/dl (0.2-1) Aspartate Amino Transf (AST/SGOT) 17 U/L (15-37) Alanine Aminotransferase (ALT/SGPT) 22 U/L (12-78) Alkaline Phosphatase 203 U/L (45-117) Total Creatine Kinase 144 U/L (39-308) Creatine Kinase MB 5.9 ng/ml (0.5-3.6) Creatine Kinase MB Ratio 4.1 (0-3.0) Troponin I 0.024 ng/ml (0-0.045) Total Protein 6.6 gm/dl (6.4-8.2) Albumin 3.1 gm/dl (3.4-5.0) Globulin 3.5 gm/dl (2.5-4.0) Albumin/Globulin Ratio 0.9 (0.9-2) Influenza Type A Antigen Neg for Influ A (NEG) Influenza Type B Antigen Neg for Influ B (NEG) Labs reviewed by ED physician. Medications Administered Medications (Trade) Dose Ordered Sig/Malik Route Start Time Stop Time Status Last Admin Dose Admin Albuterol/ Ipratropium (Duoneb) 12 ml ONE ONCE INH 03/21/17 12:00 03/21/17 12:01 DC 03/21/17 12:08 12 ML Methylprednisolone Sodium Succinate (Solu-Medrol IV) 125 mg NOW STAT IV 03/21/17 12:14 03/21/17 12:15 DC 03/21/17 12:36 125 MG Sodium Chloride 500 ml @ 999 mls/hr Q31M STAT IV 03/21/17 13:41 03/21/17 14:11 DC 03/21/17 14:47 999 MLS/HR ECG Indication: SOB/dyspnea Rate (beats per minute): 89 Rhythm: normal sinus Findings: PVC, no acute ischemic change ED Course 1145: Past medical records reviewed. The patient was evaluated in room B11B. A complete history and physical examination was performed. 1200: Ordered DuoNeb 12 ml INH. 1214: Ordered Solu-Medrol IV 125 mg IV. 1259: I reevaluated the patient and he is resting much more comfortably. 1329: I reevaluated the patient and he is resting. I discussed the exam findings with him and I discussed the treatment plan. He verbalized complete understanding and agreement. He will be evaluated for further treatment. 1340: I discussed the patients case with Dr. Keen [facility] [place]. He is going to evaluate the patient for further treatment. Medical Decision Differential diagnosis: Etiologies such as infections, reactive airway disease, pneumonia, pneumothorax , COPD, CHF, cardiac ischemia, pulmonary embolism, musculoskeletal, gastrointestinal, as well as others were entertained. This is an 86-year-old patient who presents emergency department complaining of shortness of breath. The patient is hypoxic upon arrival. He was given an hour -long breathing treatment. The patient was started on Solu-Medrol. He was sent for CAT scan of the chest which does not show any evidence of acute issue. The patient was a related by nursing staff however he is still extremely dyspneic and did not do well. Based on this finding I did discuss the case with the hospitalist service who agreed to admit the patient. Patient and are in agreement with the treatment plan. Medication Reconcilliation Current Medication List: was personally reviewed by me Blood Pressure Screening Patient's blood pressure: Normal blood pressure Blood pressure disposition: Did not require urgent referral Consults Time Called: 1331 Consulting Physician: Janel Lima Returned Call: [phone] I discussed the patients case with JANEL Lima. He is going to evaluate the patient for further treatment. Impression Primary Impression: Hypoxia Scribe Attestation The scribe's documentation has been prepared under my direction and personally reviewed by me in its entirety. I confirm that the note above accurately reflects all work, treatment, procedures, and medical decision making performed by me. Departure Information Dispostion Being Evaluated By Hospitalist Referrals Olman Latham M.D. (PCP)
[2017-03-21] MEDS ORDERED: ALBUT/IPRATROP 3MG/0.5MG NEB 3 ML VIAL INH ONE (12:00)
[2017-03-21 12:03] LABS: BASO % 0.4 %; BASO ABS # 0.04 K/uL (0-0.2); COMPLETE YES; EOS % 2.5 %; HEMATOCRIT 48.7 % (42-52); IG% 0.3 %; LYMPH % 4.5 %; LYMPH ABS # 0.42 K/uL (1.2-3.4); MEAN CELL VOLUME 82.3 fL (80-100); MEAN CORPUSCULAR HEMOGLOBIN 28.9 pg (25-34); MEAN CORPUSCULAR HGB CONC 35.1 g/dl (32-36); MEAN PLATELET VOLUME 11.3 fL (7.4-10.4); MONO % 8.4 %; NEUT % 83.9 %; PLATELET COUNT 109 K/uL (130-400); RED BLOOD COUNT 5.92 M/uL (4.7-6.1); WHITE BLOOD COUNT 9.29 K/uL (4.8-10.8)
[2017-03-21] MEDS ORDERED: METHYLPREDNISOLONE 125 MG VIAL IV STA (12:14)
[2017-03-21 12:24] LABS: BUN/CREATININE RATIO 9.1 (10-20); CALCIUM 8.5 mg/dl (8.5-10.1); POTASSIUM 3.8 mmol/L (3.5-5.1)
--- NOTE | 2017-03-21 12:26 | DIAGNOSTIC IMAGING REPORT ---
CHEST ONE VIEW PORTABLE CLINICAL HISTORY: Hypoxia. COMPARISON STUDY: Chest radiograph March 01, 2017. FINDINGS: Left hemithorax volume loss is again noted. This is unchanged. There is no pneumothorax. There may be a trace left pleural effusion. This is unchanged. Pulmonary vascularity is normal. No consolidation is identified. Mild cardiomegaly is unchanged. A calcified right lung nodule is incidentally noted. There are calcified mediastinal and hilar lymph nodes. IMPRESSION: No acute cardiopulmonary findings. No change in appearance of the chest. Electronically signed by: Bib Castanon M.D. 03/21/2017 12:25 PM Dictated Date/Time: 03/21/2017 12:23 PM
[2017-03-21 12:29] LABS: ALB/GLOB RATIO 0.9 (0.9-2); CKMB/CK RATIO 4.1 (0-3.0)
[2017-03-21] MEDS ORDERED: SODIUM CHLORIDE 0.9% 500ML 500 ML IV STA (13:41)
[2017-03-21] MEDS ORDERED: OPTIRAY 320 IV PRN (13:45)
[2017-03-21 14:00] LABS: INR 1.2 (0.9-1.1); PARTIAL THROMBOPLASTIN RATIO 1.3; PROTHROMBIN TIME (PATIENT) 13.4 SECONDS (9.0-12.0)
--- NOTE | 2017-03-21 14:23 | History and Physical ---
History & Physical Date & Time of Service: Mar 21, 2017 at 14:21 Chief Complaint: Short Of Breath-Dizziness Primary Care Physician: Olman Latham M.D. History of Present Illness Source: patient Mr. 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 Prior to this onset he denies having any difficulty with breathing and this SOB has been progressive over the past few days but worsened today. He notes that he had SOB and audible wheeze and then developed a cough yesterday that produces osorio/green sputum. His notes that he did not look well yesterday and got worse today. He was recently visiting family at [facility] a few days ago. Associated generalized weakness predominantly today. He did sustain a fall yesterday without injury due to generalized weakness but was easily able to get up after this. He denies lung disease except for Lung CA approx. 5 years ago where he underwent LLL Lobectomy. He is a former smoker and outpatient PFTs reveal mild to moderate obstructive findings. He is not prescribed any inhalers or maintenance respiratory medications. He was prescribed amiodarone on previous admission but states he stopped taking that 2 days after discharge due to concerns of side effects and has not taken it since. He denies fever/chills, CP , palpitations, N/V, abdominal pain, dysuria, constipation/diarrhea, melena/ hematochezia In the ED, he is afebrile and without leukocytosis. He has mildly labored breathing and is ill-appearing but does not appear in distress. CTA of the chest reveals findings suggesting pulmonary HTN with small L pleural effusion without consolidations. CK and CK-MB mildly elevated but troponin negative. Echo (03/02) - hypertrophic cardiomyopathy, EF >70% and L ventricular outflow obstruction. EKG with NSR with PVCs and depressions in V5-V6 suggesting repolarization abnormality. He will be admitted to telemetry for COPD exacerbation Past Medical/Surgical History Medical Problems: (1) ACUTE PANCREATITIS Status: Resolved (2) Altered mental status Status: Resolved (3) Atrial fibrillation Status: Resolved (4) Atrial fibrillation with rapid ventricular response Status: Resolved (5) Carcinoma of colon Status: Resolved (6) Carcinoma of lower lobe, bronchus or lung Status: Resolved (7) Chronic lung disease Status: Resolved (8) Colloid cyst of third ventricle Status: Resolved (9) DIAB ABBY WO COMPL, TYPE I [JUVENILE TYPE], NOT UNCNTRLD Status: Chronic (10) Fever Status: Resolved (11) Hypertrophic cardiomyopathy Status: Chronic (12) ILEOSTOMY STATUS Status: Chronic (13) Lobectomy of lung Status: Resolved (14) MAL INGA BRONCH/LUNG NOS Status: Resolved (15) Urosepsis Status: Resolved Family History Diabetes mellitus Heart disease Hypertension Social History Smoking Status: Former Smoker Smokeless Tobacco Use: No Alcohol Use: none Drug Use: none Marital Status: Housing status: lives with family Occupational Status: retired Immunizations History of Influenza Vaccine: Yes Influenza Vaccine Date: Jul 26, 2013 History of Tetanus Vaccine?: Unknown History of Pneumococcal: Yes Pneumococcal Date: Jul 26, 2013 History of Hepatitis B Vaccine: No Multi-Drug Resistant Organisms History of MDRO: No Allergies Coded Allergies: No Known Allergies (Verified , 03/01/17) Home Medications Scheduled Amiodarone HCl (Amiodarone HCl), 200 MG PO BID Bimatoprost (Lumigan), 1 DROP OPB DAILY Calcium Carbonate-Vitamin D (Oscal 500/200 D-3), 2 TAB PO DAILY Coenzyme Q10 (Ubidecarenone) (Co Q10), 50 CAP PO DAILY Finasteride (Proscar), 5 MG PO DAILY Fish Oil ([place]-3), 1 CAP PO DAILY Insulin Glargine (Lantus), 25 UNITS SC BID Insulin Human Lispro (Humalog), 25 UNITS SQ BID Levothyroxine Sodium (Levothyroxine Sodium), 50 MCG PO DAILY Rivaroxaban (Xarelto), 15 MG PO DAILY Rosuvastatin Calcium (Rosuvastatin Calcium), 5 MG PO DAILY Timolol Hemihydrate (Betimol), 1 DROP OPB QPM Review of Systems Constitutional: + weakness (generalized), No fever, No chills ENT: No nasal symptoms, No sore throat Respiratory: + cough, + sputum, + wheezing, + dyspnea on exertion, + dyspnea at rest, No hemoptysis Cardiovascular: No chest pain, No palpitations Abdomen: No pain, No nausea, No vomiting, No diarrhea, No constipation Musculoskeletal: No swelling Genitourinary - Male: No dysuria Hematologic / Lymphatic: No abnormal bleeding/bruising, No clotting problems Integumentary: No rash Physical Exam Vital Signs Date Time Temp Pulse Resp B/P (MAP) Pulse Ox O2 Delivery O2 Flow Rate FiO2 03/21/17 13:51 107 24 119/70 93 Nasal Cannula 2.0 03/21/17 13:18 101 25 126/91 89 Room Air 03/21/17 13:16 101 03/21/17 12:29 73 23 117/66 95 Nebulizer 03/21/17 12:11 68 15 95 Nasal Cannula 2.0 03/21/17 11:54 90 Room Air 03/21/17 11:54 94 Nasal Cannula 03/21/17 11:19 Room Air 03/21/17 11:18 78 03/21/17 11:07 36.6 94 22 130/78 92 Room Air General Appearance: WD/WN, no apparent distress, + pertinent finding (ill- appearing) Head: normocephalic, atraumatic Eyes: sclerae normal ENT: hearing grossly normal, + pertinent finding (oral mucosa dry) Neck: supple, no JVD, trachea midline Respiratory/Chest: no accessory muscle use, + respiratory distress (mild labored breathing), + wheezing (expiratory), + pertinent finding (course breath sounds throughout) Cardiovascular: regular rate, rhythm, no gallop, + systolic murmur Abdomen/GI: normal bowel sounds, non tender, soft Extremities/Musculoskelatal: no calf tenderness, no pedal edema Neurologic/Psych: alert, oriented x 3 Skin: normal color, warm/dry Diagnostics Laboratory Results Results Past 24 Hours Test 03/21/17 11:45 03/21/17 13:05 Range/Units White Blood Count 9.29 4.8-10.8 K/uL Red Blood Count 5.92 4.7-6.1 M/uL Hemoglobin 17.1 14.0-18.0 g/dL Hematocrit 48.7 42-52 % Mean Corpuscular Volume 82.3 80-100 fL Mean Corpuscular Hemoglobin 28.9 25-34 pg Mean Corpuscular Hemoglobin Concent 35.1 32-36 g/dl Platelet Count 109 130-400 K/uL Mean Platelet Volume 11.3 7.4-10.4 fL Neutrophils (%) (Auto) 83.9 % Lymphocytes (%) (Auto) 4.5 % Monocytes (%) (Auto) 8.4 % Eosinophils (%) (Auto) 2.5 % Basophils (%) (Auto) 0.4 % Neutrophils # (Auto) 7.79 1.4-6.5 K/uL Lymphocytes # (Auto) 0.42 1.2-3.4 K/uL Monocytes # (Auto) 0.78 0.11-0.59 K/uL Eosinophils # (Auto) 0.23 0-0.5 K/uL Basophils # (Auto) 0.04 0-0.2 K/uL RDW Standard Deviation 42.7 36.4-46.3 fL RDW Coefficient of Variation 14.1 11.5-14.5 % Immature Granulocyte % (Auto) 0.3 % Immature Granulocyte # (Auto) 0.03 0.00-0.02 K/uL Prothrombin Time 13.4 9.0-12.0 SECONDS Prothromb Time International Ratio 1.2 0.9-1.1 Activated Partial Thromboplast Time 33.5 21.0-31.0 SECONDS Partial Thromboplastin Ratio 1.3 Sodium Level 138 136-145 mmol/L Potassium Level 3.8 3.5-5.1 mmol/L Chloride Level 107 98-107 mmol/L Carbon Dioxide Level 25 21-32 mmol/L Anion Gap 6.0 3-11 mmol/L Blood Urea Nitrogen 9 7-18 mg/dl Creatinine 1.00 0.60-1.40 mg/dl Est Creatinine Clear Calc Drug Dose 57.4 ml/min Estimated GFR () 79.2 Estimated GFR (Non- 68.3 BUN/Creatinine Ratio 9.1 10-20 Random Glucose 124 70-99 mg/dl Calcium Level 8.5 8.5-10.1 mg/dl Total Bilirubin 1.8 0.2-1 mg/dl Aspartate Amino Transf (AST/SGOT) 17 15-37 U/L Alanine Aminotransferase (ALT/SGPT) 22 12-78 U/L Alkaline Phosphatase 203 45-117 U/L Total Creatine Kinase 144 39-308 U/L Creatine Kinase MB 5.9 0.5-3.6 ng/ml Creatine Kinase MB Ratio 4.1 0-3.0 Troponin I 0.024 0-0.045 ng/ml Total Protein 6.6 6.4-8.2 gm/dl Albumin 3.1 3.4-5.0 gm/dl Globulin 3.5 2.5-4.0 gm/dl Albumin/Globulin Ratio 0.9 0.9-2 Influenza Type A Antigen Neg for Influ A NEG Influenza Type B Antigen Neg for Influ B NEG Diagnostic Radiology CHEST ONE VIEW PORTABLE FINDINGS: Left hemithorax volume loss is again noted. This is unchanged. There is no pneumothorax. There may be a trace left pleural effusion. This is unchanged. Pulmonary vascularity is normal. No consolidation is identified. Mild cardiomegaly is unchanged. A calcified right lung nodule is incidentally noted. There are calcified mediastinal and hilar lymph nodes. IMPRESSION: No acute cardiopulmonary findings. No change in appearance of the chest. CT ANGIOGRAM OF THE CHEST FINDINGS: There is a partially visualized 10 cm upper pole left renal cyst The heart is enlarged. There are coronary artery calcifications.. There are calcified hilar and subcarinal lymph nodes, likely on a postinflammatory basis. There is ectasia of the ascending thoracic aorta which measures 38 mm. There is dilatation of the main pulmonary artery which measures 37 mm. This may indicate pulmonary artery hypertension. There are no filling defects to indicate acute pulmonary embolism. No pleural effusions are visualized. There are postsurgical changes of a left lower lobectomy. There is mild right lower lobe bronchiectasis. There is a small left pleural effusion. There is no focal pulmonary consolidation. There is a calcified right middle lobe granuloma. There is a calcified right upper lobe granuloma. There is a tiny calcified left upper lobe granuloma. IMPRESSION: 1. No evidence of acute pulmonary embolism 2. Postsurgical changes of a left lower lobectomy 3. No evidence of focal pulmonary consolidation 4. Mild right lower lobe cylindrical bronchiectasis with mild bronchial wall thickening 5. Small left pleural effusion with chronic left basilar scarring 6. Old granulomatous changes EKG Sinus rhythm with Premature ventricular complexes Left ventricular hypertrophy with repolarization abnormality Abnormal ECG When compared with ECG of 01-MAR-2017 13:28, Sinus rhythm has replaced Atrial fibrillation Vent. rate has decreased BY 65 BPM Confirmed by MARCELINO PORTILLO ([id number]) on 03/21/2017 1:56:08 PM Impression Assessment and Plan Mr. 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 Acute Respiratory Failure with Hypoxia 2/2 COPD Exacerbation: - Per [employer], PFTs confirmed mild to moderate obstructive findings - is a former smoker - Methylprednisolone 60 mg IV Q8H - Levaquin 750 mg IV Q2D for renal dosing - Xopenex/Atrovent LION and PRN - NSS at 75 mL/hr x 2 bags Paroxysmal Atrial Fibrillation and Hypertrophic Cardiomyopathy: Follows with Dr. Rivera - Will hold amiodarone as he has not taken this since previous admission - did discuss mechanism of medication and purpose - Xarelto 15 mg daily - renal dosage - Will gently hydrate given echo findings of outlet obstruction - plan for medical management of cardiomyopathy HTN: CONTROLLED OFF MEDICATIONS Hypothyroidism: - Synthroid 50 mcg daily T2DM - Insulin Dependent: A1c 7.2 - Lantus 25 units SC BID and SSI DVT Prophylaxis: Xarelto Code Status: FULL RESUSCITATION Disposition: - Lives with - possible D/C 2-3 days Attending Addendum: I have physically seen and examined this patient, have directed the physician assistants medical activities, and agree with the H&P as noted above with the following exceptions as noted. The patient is awake, alert and oriented 3, well-developed and well-nourished , normocephalic and atraumatic, lying in bed and in no acute distress. HEENT--PERRL, EOMI, mucous membranes and oropharynx dry. Neck--supple, no JVD or bruits, thyroid normal, trachea midline, no adenopathy. Heart--normal S1 and S2, no extra beats. Systolic murmur. No Rubs or gallops. Lungs--coarse breath sounds bilaterally with scattered wheezes, mild respiratory distress, no accessory muscle use. Abdomen--normal bowel sounds and soft, nontender and nondistended, no hernias or masses, no organomegaly. Extremities--no cyanosis, clubbing or edema. There are good distal pulses b/l. Dermatologic--normal skin turgor, normal color, warm and dry, no abnormal lymph nodes, no rash. Neurologic--cranial nerves II through XII grossly intact. Rheumatologic--normal range of motion, nontender, muscles and joints. Psychiatric--normal affect. Assessment and Plan: Acute respiratory failure with hypoxia secondary to COPD exacerbation-- Methylprednisolone 60 mg IV every 8 hours Levaquin 750 mg IV every 2 D for renal dosing Xopenex/Atrovent nebulizers every 6 hours while awake and every 2 hours when necessary. NSS at 75 ML's per hour 2 L. Paroxysmal atrial fibrillation/hypertrophic cardiomyopathy/hypertension He has chosen to not take amiodarone since his last hospital admission Xarelto 15 mg by mouth daily. 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 Rivera. Diabetes mellitus-- Lantus 25 units subcutaneous twice a day Accu-Cheks before meals and at bedtime with NovoLog coverage per scale. Hypothyroidism-- Synthroid 50 g by mouth daily. Level of Care Telemetry Resuscitation Status FULL RESUSCITATION VTE Prophylaxis VTE Risk Assessment Done? Y/N: Yes Risk Level: Moderate Given or contraindicated: Other Anticoagulation (Xarelto) Social Service Consult None Apply
--- NOTE | 2017-03-21 14:45 | DIAGNOSTIC IMAGING REPORT ---
CT ANGIOGRAM OF THE CHEST CLINICAL HISTORY: SHORTNESS OF BREATH. DIZZINESS. COMPARISON STUDY: Chest CT dated 02/29/2016 TECHNIQUE: Following the IV administration of 93 mL of [id number]-320, CT angiogram of the thorax was performed from the thoracic inlet to the lung bases utilizing the pulmonary embolus protocol. Images are reviewed in the axial, sagittal, and coronal planes. IV contrast was administered without complication. MIP imaging was performed. A dose lowering technique was utilized adhering to the principles of ALARA. CT DOSE: 411.11 mGy.cm FINDINGS: There is a partially visualized 10 cm upper pole left renal cyst The heart is enlarged. There are coronary artery calcifications.. There are calcified hilar and subcarinal lymph nodes, likely on a postinflammatory basis. There is ectasia of the ascending thoracic aorta which measures 38 mm. There is dilatation of the main pulmonary artery which measures 37 mm. This may indicate pulmonary artery hypertension. There are no filling defects to indicate acute pulmonary embolism. No pleural effusions are visualized. There are postsurgical changes of a left lower lobectomy. There is mild right lower lobe bronchiectasis. There is a small left pleural effusion. There is no focal pulmonary consolidation. There is a calcified right middle lobe granuloma. There is a calcified right upper lobe granuloma. There is a tiny calcified left upper lobe granuloma. IMPRESSION: 1. No evidence of acute pulmonary embolism 2. Postsurgical changes of a left lower lobectomy 3. No evidence of focal pulmonary consolidation 4. Mild right lower lobe cylindrical bronchiectasis with mild bronchial wall thickening 5. Small left pleural effusion with chronic left basilar scarring 6. Old granulomatous changes Electronically signed by: Sukhwinder Márquez M.D. 03/21/2017 2:44 PM Dictated Date/Time: 03/21/2017 2:38 PM
[2017-03-21] MEDS ORDERED: MAGNESIUM HYDROXIDE SUSP 30 ML UDC PO PRN (15:00)
[2017-03-21] MEDS ORDERED: ONDANSETRON INJ 2 MG/ML 2 ML VIAL IV PRN (15:00)
[2017-03-21] MEDS ORDERED: POLYETHYLENE (MIRALAX) 17 GM PACK PO PRN (15:00)
[2017-03-21] MEDS ORDERED: ACETAMINOPHEN 325 MG TAB PO PRN (15:00)
[2017-03-21] MEDS ORDERED: ALUMINUM/MAGNESIUM/SIMETH (MAALOX MAX) 30 ML UDC PO PRN (15:00)
[2017-03-21] MEDS ORDERED: LEVALBUTEROL 1.25MG/0.5ML NEB INH PRN (15:15)
[2017-03-21] MEDS ORDERED: GLUCOSE 40% GEL 15 GM TUBE PO PRN (15:30)
[2017-03-21] MEDS ORDERED: GLUCOSE 10 TABS/TUBE PO PRN (15:30)
[2017-03-21] MEDS ORDERED: GLUCAGON FOR INJ 1 MG VIAL SQ PRN (15:30)
[2017-03-21] MEDS ORDERED: DEXTROSE 50% 50 ML SYR IV PRN (15:30)
[2017-03-21 15:58] LABS: INFLUENZA A PCR Neg for Influ A (NEG); INFLUENZA B PCR Neg for Influ B (NEG)
[2017-03-21] MEDS: SODIUM CHLORIDE 0.9% 1000ML 1,000 ML IV SCH (17:41)
[2017-03-21] MEDS: INSULIN ASPART 100 UNITS/ML 3 ML PEN SC SCH ×2 (17:51→20:38)
[2017-03-21] MEDS ORDERED: LEVOFLOXACIN / D5W 750 MG in PREMIXED IN D5W 150 ML IV SCH (18:00)
[2017-03-21 18:37] LABS: CKMB/CK RATIO 3.7 (0-3.0)
[2017-03-21] MEDS: IPRATROPIUM BROMIDE NEB SOLN 0.02% 2.5 ML VIAL INH SCH (19:51)
[2017-03-21] MEDS: LEVALBUTEROL 1.25MG/0.5ML NEB INH SCH (19:52)
[2017-03-21] MEDS: METHYLPREDNISOLONE IV 60 MG in SYRINGE 0 ML IV SCH (20:32)
[2017-03-21] MEDS: INSULIN GLARGINE SOLOSTAR 100 UNITS/ML 3 ML PEN SC SCH (20:37)
[2017-03-21 21:20] LABS: MANUAL MICROSCOPIC REQUIRED? NO; REVIEW REQ? NO; URINE APPEARANCE CLEAR (CLEAR); URINE BILIRUBIN NEG (NEG); URINE COLOR YELLOW; URINE NITRITE NEG (NEG); URINE PH 5.5 (4.5-7.5); URINE SPECIFIC GRAVITY > 1.045 (1.000-1.030); UROBILINOGEN NEG (NEG)
[2017-03-22] VITALS (12 sets, daily range): BP systolic 98–127; BP diastolic 49–68; PULSE 71–90; TEMP 36.4–36.9; O2SAT 92–96
[2017-03-22] MEDS ORDERED: INSULIN IV INFUSION PROTOCOL STA (00:13)
[2017-03-22] MEDS ORDERED: INSULIN PROTOCOL GOAL RANGE ONE (00:15)
[2017-03-22] MEDS ORDERED: MODERATE STRESS LEVEL ONE (00:15)
[2017-03-22] MEDS ORDERED: INSULIN HUMAN REGULAR IV BOLUS 2 UNIT in SYRINGE 0 ML IV SCH (00:45)
[2017-03-22 01:02] LABS: CKMB/CK RATIO 4.5 (0-3.0)
[2017-03-22] MEDS: INSULIN REGULAR 250 UNITS in SODIUM CHLORIDE 0.9% 250ML 250 ML IV SCH ×12 (01:03→20:23)
[2017-03-22] MEDS: LEVALBUTEROL 1.25MG/0.5ML NEB INH SCH ×4 (01:57→19:29)
[2017-03-22] MEDS: IPRATROPIUM BROMIDE NEB SOLN 0.02% 2.5 ML VIAL INH SCH ×4 (01:57→19:29)
[2017-03-22] MEDS: METHYLPREDNISOLONE IV 60 MG in SYRINGE 0 ML IV SCH ×2 (03:51→11:57)
[2017-03-22] MEDS: SODIUM CHLORIDE 0.9% 1000ML 1,000 ML IV SCH (03:51)
[2017-03-22] MEDS: LEVOTHYROXINE 50 MCG TAB PO SCH (06:04)
[2017-03-22 07:00] LABS: HEMATOCRIT 46.6 % (42-52); MEAN CELL VOLUME 83.1 fL (80-100); MEAN CORPUSCULAR HEMOGLOBIN 27.3 pg (25-34); MEAN CORPUSCULAR HGB CONC 32.8 g/dl (32-36); MEAN PLATELET VOLUME 11.7 fL (7.4-10.4); PLATELET COUNT 132 K/uL (130-400); RED BLOOD COUNT 5.61 M/uL (4.7-6.1); WHITE BLOOD COUNT 11.07 K/uL (4.8-10.8)
[2017-03-22 07:19] LABS: ESTIMATED AVERAGE GLUCOSE 180 mg/dl; HA1C FLAG Normal (Normal)
[2017-03-22 07:37] LABS: BUN/CREATININE RATIO 13.4 (10-20); CALCIUM 8.8 mg/dl (8.5-10.1); CREATININE 1.2 mg/dl (0.60-1.40)
[2017-03-22] MEDS: BIMATOPROST 0.01% OP SOLN 2.5 ML BTL OPB SCH (08:31)
[2017-03-22] MEDS: INSULIN ASPART 100 UNITS/ML 3 ML PEN SC SCH ×4 (08:36→20:49)
[2017-03-22] MEDS: ROSUVASTATIN CALCIUM 5 MG TAB PO SCH (08:37)
[2017-03-22] MEDS: RIVAROXABAN TAB 15 MG TAB PO SCH (08:37)
[2017-03-22] MEDS: FINASTERIDE 5 MG TAB PO SCH (08:38)
[2017-03-22] MEDS ORDERED: NURSING VERBAL MED ORDER ONE (13:45)
[2017-03-22] MEDS ORDERED: PHARMACY GLYCEMIC MGMT CONSULT PRN (15:30)
[2017-03-22] MEDS ORDERED: INSULIN GLARGINE SOLOSTAR 100 UNITS/ML 3 ML PEN SC ONE (16:30)
--- NOTE | 2017-03-22 16:39 | Progress Note ---
Subjective Date of Service: Mar 22, 2017. Subjective Pt evaluation today including: conversation w/ patient, physical exam, chart review, lab review, review of studies, conversation w/ [employer] sales consultant, review of inpatient medication list Feeling better, nasal cannula oxygen has been decreased to 2 L/m, patient less difficult breathing, but still have mild wheezing Problem List Medical Problems: (1) Hypertrophic cardiomyopathy Status: Chronic (2) Hypoglycemia Status: Acute (3) Hypoxia Status: Acute (4) Palpitations Status: Acute (5) Syncope, near Status: Acute Review of Systems Constitutional: + fatigue, No fever, No chills, No sweats, No weight loss, No weakness, No problem reported Eyes: No worsening of vision, No eye pain, No redness, No discharge, No diplopia ENT: No hearing loss, No unusual epistaxis, No nasal symptoms, No sore throat, No tinnitus, No dental problems, No trouble swallowing Respiratory: + cough, + shortness of breath, No sputum, No wheezing, No dyspnea on exertion, No dyspnea at rest, No hemoptysis Cardiac: No chest pain, No orthopnea, No PND, No edema, No claudication, No palpitations Abdomen: No pain, No nausea, No vomiting, No diarrhea, No constipation Musculoskeletal: No joint pain, No muscle pain, No swelling, No calf pain Male : No dysuria, No urinary frequency, No incontinence, No nocturia more than once/night, No slowing stream, No hematuria Neurologic: No memory loss, No paralysis, No weakness, No numbness/tingling, No vertigo, No balance problems Psychiatric: No depression symptoms, No anhedonism, No anxiety, No insomnia, No substance abuse Heme: No abnormal bleeding/bruising, No clotting problems, No swollen lymph nodes, No night sweats Endo: No fatigue, No excessive thirst, No excessive urination Skin: No rash, No itch, No new/changing skin lesions, No color change, No bleeding Objective Vital Signs Date Time Temp Pulse Resp B/P (MAP) Pulse Ox O2 Delivery O2 Flow Rate FiO2 03/22/17 15:23 36.7 81 20 107/68 (81) 94 Nasal Cannula 2.0 03/22/17 14:23 75 16 96 Nasal Cannula 2.0 03/22/17 12:00 92 Nasal Cannula 2.0 03/22/17 11:16 36.4 82 20 108/62 (77) 94 03/22/17 08:00 92 Nasal Cannula 2.0 03/22/17 07:52 72 16 92 Nasal Cannula 2.0 03/22/17 07:20 36.9 72 20 127/62 (83) 95 Nasal Cannula 2.0 03/22/17 04:27 36.4 90 16 98/49 (65) 93 Nasal Cannula 2.0 03/22/17 04:00 Nasal Cannula 2.0 03/22/17 01:57 71 15 93 Nasal Cannula 2.0 03/22/17 00:00 Nasal Cannula 2.0 03/21/17 22:58 36.4 89 18 109/66 (80) 94 Nasal Cannula 2.0 03/21/17 20:25 104 15 95 Nasal Cannula 2.0 03/21/17 20:00 94 Nasal Cannula 2.0 03/21/17 19:01 36.7 104 18 123/77 (92) 94 Nasal Cannula 2.0 03/21/17 18:09 36.7 103 20 123/70 98 Nasal Cannula 2.0 03/21/17 16:57 36.7 103 20 123/70 (87) 98 Nasal Cannula 2.0 Physical Exam General Appearance: WD/WN, no apparent distress Eyes: normal inspection, PERRL, EOMI, sclerae normal ENT: normal ENT inspection, hearing grossly normal, pharynx normal Neck: supple, no adenopathy, thyroid normal, no JVD, no carotid bruits, trachea midline Respiratory/Chest: chest non-tender, no respiratory distress, no accessory muscle use, + decreased breath sounds, + wheezing (mild expiratory wheezing) Cardiovascular: regular rate, rhythm, no edema, no gallop, no JVD, no murmur Abdomen: normal bowel sounds, non tender, soft, no organomegaly, no pulsatile mass Extremities: normal range of motion, non-tender, normal inspection, no pedal edema, no calf tenderness, normal capillary refill, pelvis stable 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 tested, no motor/sensory deficits, alert, normal mood/affect, oriented x 3 Skin: normal color, warm/dry, no rash Lymphatic: no adenopathy Laboratory Results Last 24 Hours Test 03/21/17 16:48 03/21/17 18:01 03/21/17 20:01 03/21/17 20:40 Bedside Glucose 228 mg/dl 387 mg/dl Total Creatine Kinase 145 U/L Creatine Kinase MB 5.3 ng/ml Creatine Kinase MB Ratio 3.7 Troponin I 0.034 ng/ml Urine Color YELLOW Urine Appearance CLEAR Urine pH 5.5 Urine Specific [place] > 1.045 Urine Protein NEG Urine Glucose (UA) 3+ Urine Ketones 1+ Urine Occult Blood NEG Urine Nitrite NEG Urine Bilirubin NEG Urine Urobilinogen NEG Urine Leukocyte Esterase NEG Test 03/21/17 22:29 03/22/17 00:11 03/22/17 01:51 03/22/17 03:03 Bedside Glucose 360 mg/dl 307 mg/dl 312 mg/dl Total Creatine Kinase 143 U/L Creatine Kinase MB 6.4 ng/ml Creatine Kinase MB Ratio 4.5 Troponin I 0.036 ng/ml Test 03/22/17 03:54 03/22/17 05:03 03/22/17 06:03 03/22/17 06:15 Bedside Glucose 292 mg/dl 272 mg/dl 232 mg/dl White Blood Count 11.07 K/uL Red Blood Count 5.61 M/uL Hemoglobin 15.3 g/dL Hematocrit 46.6 % Mean Corpuscular Volume 83.1 fL Mean Corpuscular Hemoglobin 27.3 pg Mean Corpuscular Hemoglobin Concent 32.8 g/dl RDW Standard Deviation 42.8 fL RDW Coefficient of Variation 14.0 % Platelet Count 132 K/uL Mean Platelet Volume 11.7 fL Sodium Level 136 mmol/L Potassium Level 4.0 mmol/L Chloride Level 103 mmol/L Carbon Dioxide Level 24 mmol/L Anion Gap 9.0 mmol/L Blood Urea Nitrogen 16 mg/dl Creatinine 1.20 mg/dl Est Creatinine Clear Calc Drug Dose 47.9 ml/min Estimated GFR () 63.5 Estimated GFR (Non- 54.8 BUN/Creatinine Ratio 13.4 Random Glucose 255 mg/dl Estimated Average Glucose 180 mg/dl Hemoglobin A1c 7.9 % Calcium Level 8.8 mg/dl Test 03/22/17 07:02 03/22/17 07:59 03/22/17 08:58 03/22/17 10:03 Bedside Glucose 190 mg/dl 163 mg/dl 185 mg/dl 158 mg/dl Test 03/22/17 10:58 03/22/17 11:57 03/22/17 12:22 03/22/17 13:17 Bedside Glucose 122 mg/dl 89 mg/dl 138 mg/dl 151 mg/dl Test 03/22/17 14:18 03/22/17 15:22 Bedside Glucose 165 mg/dl 227 mg/dl Assessment and Plan 86 y/o male with PMHx of Paroxysmal Atrial Fibrillation, Hypertrophic Cardiomyopathy, COPD, HTN, Hypothyroidism, T2DM - Insulin Dependent, 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 Acute Respiratory Failure with Hypoxia 2/2 COPD Exacerbation: Stable and improving - Per [employer], PFTs confirmed mild to moderate obstructive findings - is a former smoker - Methylprednisolone 60 mg IV Q8H , will taper to 40 mg IV every 12 - Xopenex/Atrovent LION and PRN - Discontinue IV fluid Paroxysmal Atrial Fibrillation and Hypertrophic Cardiomyopathy: Follows with Dr. Rivera - Will hold amiodarone as he has not taken this since previous admission - did discuss mechanism of medication and purpose - Continue Xarelto 15 mg daily - renal dosage HTN: CONTROLLED OFF MEDICATIONS Hypothyroidism: T2DM - Insulin Dependent: A1c 7.2, Lantus 25 units SC BID and SSI , continue DVT Prophylaxis: Xarelto Code Status: FULL RESUSCITATION Improving continue current care, H&P Reviewed Continued [facility] stay due to: multiple IV medications needed Discharge planning: home
[2017-03-22] MEDS ORDERED: DC IV INSULIN INFUSION ONE (20:00)
[2017-03-22] MEDS: METHYLPREDNISOLONE IV 40 MG in SYRINGE 0 ML IV SCH (20:49)
[2017-03-23] VITALS (13 sets, daily range): BP systolic 94–150; BP diastolic 57–72; PULSE 75–95; TEMP 36.4–36.5; O2SAT 94–96
[2017-03-23] MEDS: LEVALBUTEROL 1.25MG/0.5ML NEB INH SCH ×4 (01:50→19:47)
[2017-03-23] MEDS: IPRATROPIUM BROMIDE NEB SOLN 0.02% 2.5 ML VIAL INH SCH ×4 (01:50→19:47)
[2017-03-23] MEDS: INSULIN ASPART 100 UNITS/ML 3 ML PEN SC SCH ×6 (05:04→20:52)
[2017-03-23] MEDS: LEVOTHYROXINE 50 MCG TAB PO SCH (05:06)
[2017-03-23 07:08] LABS: HEMATOCRIT 44.4 % (42-52); MEAN CELL VOLUME 82.8 fL (80-100); MEAN CORPUSCULAR HEMOGLOBIN 29.1 pg (25-34); MEAN CORPUSCULAR HGB CONC 35.1 g/dl (32-36); MEAN PLATELET VOLUME 12.4 fL (7.4-10.4); PLATELET COUNT 108 K/uL (130-400); PLT ESTIMATE DECREASED; RED BLOOD COUNT 5.36 M/uL (4.7-6.1); WHITE BLOOD COUNT 17.16 K/uL (4.8-10.8)
[2017-03-23 07:19] LABS: BLOOD UREA NITROGEN 23 mg/dl (7-18); BUN/CREATININE RATIO 20.8 (10-20); CALCIUM 8.6 mg/dl (8.5-10.1); CARBON DIOXIDE 25 mmol/L (21-32); CHLORIDE 107 mmol/L (98-107); GLUCOSE 223 mg/dl (70-99); SODIUM 136 mmol/L (136-145)
[2017-03-23] MEDS: BIMATOPROST 0.01% OP SOLN 2.5 ML BTL OPB SCH (08:19)
[2017-03-23] MEDS: INSULIN GLARGINE SOLOSTAR 100 UNITS/ML 3 ML PEN SC SCH ×2 (08:20→20:51)
[2017-03-23] MEDS: RIVAROXABAN TAB 15 MG TAB PO SCH (08:24)
[2017-03-23] MEDS: ROSUVASTATIN CALCIUM 5 MG TAB PO SCH (08:24)
[2017-03-23] MEDS: METHYLPREDNISOLONE IV 40 MG in SYRINGE 0 ML IV SCH (08:28)
[2017-03-23] MEDS: FINASTERIDE 5 MG TAB PO SCH (09:53)
[2017-03-23 13:38] LABS: PHOSPHORUS 2.2 mg/dl (2.5-4.9)
--- NOTE | 2017-03-23 14:08 | Progress Note ---
Subjective Date of Service: Mar 23, 2017. Subjective Pt evaluation today including: conversation w/ patient, conversation w/ family , chart review, lab review, review of studies, conversation w/ big machine consultant, review of inpatient medication list Generally doing better, less difficulty breathing, less cough, no fever and chill Nurse report EKG has some ST phase depressions in V4 V5 and V6, possible this happened while patient to the seating and standing and he was doing it on propose for stretching Repeated EKG this depression was improved Problem List Medical Problems: (1) Hypertrophic cardiomyopathy Status: Chronic (2) Hypoglycemia Status: Acute (3) Hypoxia Status: Acute (4) Palpitations Status: Acute (5) Syncope, near Status: Acute Review of Systems Constitutional: + weakness, No fever, No chills, No sweats, No weight loss, No fatigue, No problem reported Eyes: No worsening of vision, No eye pain, No redness, No discharge, No diplopia ENT: No hearing loss, No unusual epistaxis, No nasal symptoms, No sore throat, No tinnitus, No dental problems, No trouble swallowing Respiratory: + see HPI, No cough, No sputum, No wheezing, No shortness of breath, No dyspnea on exertion, No dyspnea at rest, No hemoptysis Cardiac: No chest pain, No orthopnea, No PND, No edema, No claudication, No palpitations Abdomen: No pain, No nausea, No vomiting, No diarrhea, No constipation Musculoskeletal: No joint pain, No muscle pain, No swelling, No calf pain Male : No dysuria, No urinary frequency, No incontinence, No nocturia more than once/night, No slowing stream, No hematuria Neurologic: No memory loss, No paralysis, No weakness, No numbness/tingling, No vertigo, No balance problems Psychiatric: No depression symptoms, No anhedonism, No anxiety, No insomnia, No substance abuse Heme: No abnormal bleeding/bruising, No clotting problems, No swollen lymph nodes, No night sweats Endo: No fatigue, No excessive thirst, No excessive urination Skin: No rash, No itch, No new/changing skin lesions, No color change, No bleeding Objective Vital Signs Date Time Temp Pulse Resp B/P (MAP) Pulse Ox O2 Delivery O2 Flow Rate FiO2 03/23/17 13:48 90 16 95 Nasal Cannula 2.0 03/23/17 11:30 36.4 80 16 124/72 (89) 96 Nasal Cannula 2.0 03/23/17 08:00 94 Nasal Cannula 2.0 03/23/17 07:37 36.4 75 16 109/68 (82) 94 Nasal Cannula 2.0 03/23/17 07:00 78 16 94 Nasal Cannula 2.0 03/23/17 04:00 Nasal Cannula 2.0 03/23/17 04:00 36.5 76 20 120/58 (78) 96 2.0 03/23/17 01:50 79 16 96 Nasal Cannula 2.0 03/23/17 00:07 36.4 79 18 94/57 (69) 94 2.0 03/23/17 00:00 Nasal Cannula 2.0 03/22/17 20:00 Nasal Cannula 2.0 03/22/17 19:44 36.5 77 18 113/56 (75) 94 Room Air 2.0 03/22/17 19:29 79 16 94 Nasal Cannula 2.0 03/22/17 16:00 94 Nasal Cannula 2.0 03/22/17 15:23 36.7 81 20 107/68 (81) 94 Nasal Cannula 2.0 03/22/17 14:23 75 16 96 Nasal Cannula 2.0 Physical Exam General Appearance: WD/WN, no apparent distress, + pertinent finding (frail, chronically ill-looking) Eyes: normal inspection, PERRL, EOMI, sclerae normal ENT: normal ENT inspection, hearing grossly normal, pharynx normal Neck: supple, no adenopathy, thyroid normal, no JVD, no carotid bruits, trachea midline Respiratory/Chest: chest non-tender, normal breath sounds, no respiratory distress, no accessory muscle use, + decreased breath sounds, + pertinent finding (right lower lung wheezing and rhonchi) Cardiovascular: regular rate, rhythm, no edema, no gallop, no JVD, no murmur Abdomen: normal bowel sounds, non tender, soft, no organomegaly, no pulsatile mass Extremities: normal range of motion, non-tender, normal inspection, no pedal edema, no calf tenderness, normal capillary refill, pelvis stable Neurologic/Psychiatric: 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6 g/dL Hematocrit 44.4 % Mean Corpuscular Volume 82.8 fL Mean Corpuscular Hemoglobin 29.1 pg Mean Corpuscular Hemoglobin Concent 35.1 g/dl RDW Standard Deviation 43.9 fL RDW Coefficient of Variation 14.5 % Platelet Count 108 K/uL Mean Platelet Volume 12.4 fL Platelet Estimate DECREASED Sodium Level 136 mmol/L Potassium Level mmol/L Chloride Level 107 mmol/L Carbon Dioxide Level 25 mmol/L Anion Gap 4.0 mmol/L Blood Urea Nitrogen 23 mg/dl Creatinine 1.10 mg/dl Est Creatinine Clear Calc Drug Dose 52.5 ml/min Estimated GFR () 70.6 Estimated GFR (Non- 60.9 BUN/Creatinine Ratio 20.8 Random Glucose 223 mg/dl Calcium Level 8.6 mg/dl Magnesium Level mg/dl Test 03/23/17 07:26 03/23/17 11:46 03/23/17 12:53 Potassium Level 5.0 mmol/L Magnesium Level 2.0 mg/dl Bedside Glucose 256 mg/dl Phosphorus Level 2.2 mg/dl Troponin I 0.055 ng/ml Assessment and Plan 86 y/o male with PMHx of Paroxysmal Atrial Fibrillation, Hypertrophic Cardiomyopathy, COPD, HTN, Hypothyroidism, T2DM - Insulin Dependent, 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 Acute Respiratory Failure with Hypoxia 2/2 COPD Exacerbation: Stable and improving - Per [employer], PFTs confirmed mild to moderate obstructive findings - is a former smoker - Methylprednisolone 60 mg IV Q8H , tapering, will change to oral prednisone at 20 mg by mouth twice a day - Xopenex/Atrovent LION and PRN - Discontinue IV fluid Paroxysmal Atrial Fibrillation and Hypertrophic Cardiomyopathy: Follows with Dr. Rivera - Will hold amiodarone as he has not taken this since previous admission - did discuss mechanism of medication and purpose - Continue Xarelto 15 mg daily - renal dosage - EKG changes with V4 5 and 6 obvious depression, checked troponin 0.05, and he knew chance of troponin level hypo phosphatemia replaced HTN: CONTROLLED OFF MEDICATIONS Hypothyroidism: T2DM - Insulin Dependent: A1c 7.2, Lantus 25 units SC BID and SSI , continue The above condition is stable DVT Prophylaxis: Xarelto Code Status: FULL RESUSCITATION Improving continue current care, H&P Reviewed Continued [facility] stay due to: multiple IV medications needed Discharge planning: home
[2017-03-23] MEDS ORDERED: NURSING VERBAL MED ORDER ONE ×2 (14:15→14:30)
--- NOTE | 2017-03-23 14:21 | Pharmacy Progress Note ---
Glycemic Control Intl Consult Date of Service Mar 23, 2017. Scope Glycemic Pharmacist consulted by Dr Alexander on 03/24/17 for glycemic control and to write orders per [facility] inpatient glycemic control protocol Objective Weight (Kilograms): 86.500 Accuchecks BSG (last 24hrs): Test 03/22/17 14:18 03/22/17 15:22 03/22/17 16:16 03/22/17 16:24 Bedside Glucose 165 mg/dl (70-99) 227 mg/dl (70-99) 174 mg/dl (70-99) 234 mg/dl (70-99) Test 03/22/17 17:13 03/22/17 18:17 03/22/17 20:13 03/22/17 22:19 Bedside Glucose 151 mg/dl (70-99) 174 mg/dl (70-99) 120 mg/dl (70-99) 84 mg/dl (70-99) Test 03/23/17 00:05 03/23/17 04:10 03/23/17 06:14 03/23/17 07:01 Bedside Glucose 122 mg/dl (70-99) 151 mg/dl (70-99) 203 mg/dl (70-99) Random Glucose 223 mg/dl (70-99) Test 03/23/17 11:46 Bedside Glucose 256 mg/dl (70-99) Laboratory Data (last 24hrs) Test 03/23/17 06:14 03/23/17 07:26 Anion Gap 4.0 mmol/L BUN/Creatinine Ratio 20.8 Blood Urea Nitrogen 23 mg/dl Creatinine 1.10 mg/dl Potassium Level mmol/L 5.0 mmol/L Sodium Level 136 mmol/L White Blood Count 17.16 K/uL HbA1c Test 03/22/17 06:15 Hemoglobin A1c 7.9 % (4.5-5.6) H Recent Pertinent Medications Outpatient Anti-diabetic Regimen: * Lantus 25 units SQ BID + Humalog 25 units SQ BID * A1c = 7.9 % 03/22/17 The patient is currently receiving: * Basal insulin: Lantus 25 units every 12 hours * Correctional Insulin: Novolog Correction per scale ACHS Goal Range: Low 110 mg/dL - High 140 mg/dL Correction Factor: 15 mg/dL/unit * Prandial insulin: Per carb ratio of 1 unit per 5 grams CHO consumed Risk Factors for Insulin Resistance: * Steroids: solu medrol IV --> prednisone 20 mg po daily * Diet: T2DM, AHA Assessment & Plan ASSESSMENT: * 86 yr old male with hyperglycemia due to baseline DM and administration of high dose IV steroids. Pt was started on IV insulin infusion 9/ pm. Pharmacy was consulted on 03/22 to transition patient to SQ basal/bolus regimen. Pt was given a one time dose of Lantus 50 units SQ. Lantus was overlapped with insulin infusion for ~6 hours with good glycemic control yesterday evening and overnight. * Fasting and lunch BSG elevated today, therefore, CF/CR was tightened this morning. IV steroids have been tapered to Prednisone 20 mg PO BID starting this evening so CF/CR will need to be loosened at that time. * ADA & AACE recommend a goal blood sugar range 140-180 mg/dl for the majority of critically ill & non-critically ill patients. However, more stringent targets may be selected in individual cases. Will utilize more stringent goal of 110-140mg/dl based on patient age & comorbidities. Additionally, tighter glycemic control is warranted to facilitate wound/infection healing. PLAN FOR INPATIENT GLYCEMIC CONTROL: * Basal insulin: * Lantus 25-30 units SQ tonight (25 for BSG 160 mg/dL or less, 30 units for BSG > 160 mg/dL) * Will likely resume 25 units SQ BID on 03/24 * Correctional Insulin with NOVOLOG per scale ACHS or Q6hrs while NPO * Goal Range: Low 110 mg/dL - High 140 mg/dL * Correction Factor: 12 mg/dL/unit - change back to 15 @ 2100 * Nutritional / Prandial insulin per carb ratio of 1 unit per 4 grams CHO consumed - change back to 5 @ 2100 DISCHARGE RECOMMENDATIONS: * Adequate outpatient glycemic control for pt age and comorbidities (A1c of 7.9% ) * Continue Lantus 25 units BID and Humalog 25 units BIDM on discharge. * Please note that the plan above was derived based on current level of insulin resistance and hospital stress. These recommendations are appropriate for inpatient admission only. Plan of care upon discharge will need to be reassessed to avoid potential outpatient hypo/hyperglycemia. Thank you.
[2017-03-23] MEDS ORDERED: POTASSIUM PHOSPHATE INJ 30 MMOL in SODIUM CHLORIDE 0.9% 500ML 500 ML IV ONE (14:45)
--- NOTE | 2017-03-23 15:24 | CARDIOLOGY PROGRESS NOTE ---
DATE: 03/23/2017 SUBJECTIVE: Mr. Benjamin is resting comfortably in bed without complaints of chest pain. His dyspnea has improved rapidly since the time of his admission. He is anxious for hospital discharge tomorrow. OBJECTIVE: VITAL SIGNS: Blood pressure 124/72 with a regular pulse of 80. Respiratory rate is 16 and the patient is afebrile at 36.4 degrees Celsius. Saturations 96% on 2 liters nasal cannula. NECK: Supple with full carotid upstrokes. No obvious bruits. Jugular venous pressure is flat at 90 degrees. There is no thyromegaly. CARDIOVASCULAR: Reveals a regular rhythm with a 2/6 basal systolic ejection murmur. Heart sounds are distant. No S3. LUNGS: Note coarse breath sounds throughout, but no rales. ABDOMEN: Soft without bruits. Ileostomy noted in the right lower quadrant. EXTREMITIES: Reveal intact radial artery pulses bilaterally. There is no peripheral edema. DATA: CBC notes hemoglobin 15.6, hematocrit 44.4, white count 17.1, and platelet count 108,000. Electrolytes note a sodium of 136, potassium 4.0, chloride 107, bicarb 25, BUN 23, creatinine 1.1, and glucose 223. Troponin I level is mildly elevated at 0.055. EKG notes normal sinus rhythm and left ventricular hypertrophy with repolarization changes. QT interval is borderline. facsimile operator is benign. No atrial fibrillation. IMPRESSION AND PLAN: 1. Elevated troponin - minor elevation is of no clinical significance, especially realizing the patient has no cardiac symptoms. 2. Hypertrophic obstructive cardiomyopathy again noted at time of echocardiogram on March 02. He had hyperdynamic left ventricular systolic function and relatively low gradient across his outflow tract. 3. Paroxysmal atrial fibrillation - diagnosed in mid February of this year. He is tolerating amiodarone without difficulty. Also tolerating Xarelto at a renally adjusted dose. 4. Hypertension - controlled. 5. Hypercholesterolemia - continue statin. 6. Chronic obstructive pulmonary flare. 7. Diabetes mellitus.
[2017-03-24] VITALS (9 sets, daily range): BP systolic 102–123; BP diastolic 55–74; PULSE 61–78; TEMP 36.4–36.7; O2SAT 94–97
[2017-03-24] MEDS ORDERED: INSULIN ASPART 100 UNITS/ML 3 ML PEN SC SCH (02:00)
[2017-03-24] MEDS: LEVALBUTEROL 1.25MG/0.5ML NEB INH SCH ×2 (02:03→07:18)
[2017-03-24] MEDS: IPRATROPIUM BROMIDE NEB SOLN 0.02% 2.5 ML VIAL INH SCH ×2 (02:03→07:18)
[2017-03-24] MEDS: LEVOTHYROXINE 50 MCG TAB PO SCH (05:41)
[2017-03-24 07:28] LABS: MEAN CELL VOLUME 84.4 fL (80-100); MEAN CORPUSCULAR HEMOGLOBIN 28.3 pg (25-34); MEAN CORPUSCULAR HGB CONC 33.6 g/dl (32-36); MEAN PLATELET VOLUME 11.7 fL (7.4-10.4); PLATELET COUNT 128 K/uL (130-400); RED BLOOD COUNT 5.33 M/uL (4.7-6.1); WHITE BLOOD COUNT 13.77 K/uL (4.8-10.8)
[2017-03-24] MEDS: BIMATOPROST 0.01% OP SOLN 2.5 ML BTL OPB SCH (07:49)
[2017-03-24] MEDS: FINASTERIDE 5 MG TAB PO SCH (07:49)
[2017-03-24] MEDS: ROSUVASTATIN CALCIUM 5 MG TAB PO SCH (07:49)
[2017-03-24] MEDS: RIVAROXABAN TAB 15 MG TAB PO SCH (07:50)
[2017-03-24] MEDS: INSULIN ASPART 100 UNITS/ML 3 ML PEN SC SCH ×2 (07:56→12:02)
[2017-03-24] MEDS: INSULIN GLARGINE SOLOSTAR 100 UNITS/ML 3 ML PEN SC SCH (07:57)
[2017-03-24 08:00] LABS: BUN/CREATININE RATIO 22.4 (10-20); CREATININE 1.1 mg/dl (0.60-1.40); MAGNESIUM 2.2 mg/dl (1.8-2.4); POTASSIUM 4.8 mmol/L (3.5-5.1)
--- NOTE | 2017-03-24 09:13 | Pharmacy Progress Note ---
Glycemic Control Progress Note Date of Service Mar 24, 2017. Scope Glycemic Pharmacist consulted for glycemic control to write orders per [facility] inpatient glycemic control protocol. Objective Accuchecks BSG (last 24hrs): Test 03/23/17 11:46 03/23/17 16:14 03/23/17 20:09 03/24/17 02:09 Bedside Glucose 256 mg/dl (70-99) 159 mg/dl (70-99) 97 mg/dl (70-99) 174 mg/dl (70-99) Test 03/24/17 07:18 03/24/17 07:33 Random Glucose 205 mg/dl (70-99) Bedside Glucose 174 mg/dl (70-99) HbA1c: Test 03/22/17 06:15 Hemoglobin A1c 7.9 % (4.5-5.6) H Recent Pertinent Medications The patient is currently receiving: * Basal insulin: Lantus 25 units every 12 hours * Correctional Insulin: Novolog Correction per scale ACHS Goal Range: Low 110 mg/dL - High 140 mg/dL Correction Factor: 15 mg/dL/unit * Prandial insulin: Per carb ratio of 1 unit per 5 grams CHO consumed Risk Factors for Insulin Resistance: * Steroids: Prednisone 20 mg po BID * Diet: T2DM, AHA Outpatient Anti-Diabetic Meds * Lantus 25 units SQ BID + Humalog 25 units SQ BID Assessment & Plan ASSESSMENT: * See progress note from 03/23/17 for more background info, in short: * Pt receiving SQ basal bolus insulin regimen for hyperglycemia secondary to baseline DM & steroids * IV steroids tapered from Solu Medrol 40 mg IV q12 to Prednisone 20 mg PO BID * Patient received 96 units of insulin over the past 24 hours. This is similar to home regimen of 100 units per day. * BSGs ranging 97 - 256 mg/dl over the past 24hrs * Changes needed to insulin regimen: * AM Fasting BSG = 174 mg/dl. This is in slightly above goal range for patient based on inpatient targets and co-morbidities but is trending downward. This should continue to improve as steroids taper. Will lower Lantus scale starting tonight. * Post-prandial BSGs are at goal. CF/CR was tightened yesterday until effects of Solu Medrol wore off, then loosened back to 02/12. PLAN FOR INPATIENT GLYCEMIC CONTROL: * Basal insulin - increase * Lantus 30 units SQ qAM x1, then Lantus 28 units SQ BID * Bolus insulin with Novolog * Continue correction factor of 15 mg/dl/unit * Tighten Continue carb ratio to 1 unit per 4 grams CHO consumed * Continue goal range of Low 110 mg/dL - High 140 mg/dL DISCHARGE RECOMMENDATIONS: * Adequate outpatient glycemic control for pt age and comorbidities (A1c of 7.9% ) * Continue Lantus 25 units BID and Humalog 25 units BIDM on discharge - continue to titrate as outpatient. * Please note that the plan above was derived based on current level of insulin resistance and hospital stress. These recommendations are appropriate for inpatient admission only. Plan of care upon discharge will need to be reassessed to avoid potential outpatient hypo/hyperglycemia. Thank you.
[2017-03-24] MEDS ORDERED: PRED10TA PO (09:54)
[2017-03-24] MEDS ORDERED: PRVHFAIN INH (09:54)
--- NOTE | 2017-03-24 10:05 | Discharge Instructions ---
Discharge Instructions Date of Service Mar 24, 2017. Admission Reason for Admission: Acute Respiratory Failure W/ Hypoxia Discharge Discharge Diagnosis / Problem: COPD Exacerbation Discharge Goals Goal(s): Decrease discomfort, Improve function, Increase independence Activity Recommendations Activity Limitations: resume your previous activity . Instructions / Follow-Up Instructions / Follow-Up COPD Exacerbation: - Upon review of your outpatient records, your pulmonary function testing suggest you may have underlying COPD (chronic bronchitis/emphysema). -- This condition can cause you to get short of breath and wheeze. This can be triggered by allergies, illnesses, etc. - You were treated with breathing treatments and steroids. - Continue the steroid taper as follows - Prednisone 40 mg (4 tablets) x 3 days - start this tomorrow on 03/25 -- Then 30 mg (3 tablets) x 3 days, then 20 mg (2 tablets) x 3 days, then 10 mg (1 tablet) x 3 days until finished - You will be given a prescription for a rescue inhaler - You may take 2 puffs every 4 hours as needed for shortness of breath or wheezing - You will also be provided a prescription for nebulizer breathing treatments and a machine. The machine can be picked up at medical equipment places. - Keep your follow-up appointment with Pulmonology as previously scheduled and discuss this with them. Paroxysmal Atrial Fibrillation: - Please discuss with your senior instructor that you are not taking the Amiodarone to see if they want to use a different medication. Please discuss with a doctor before stopping medications - Continue your Xarelto (blood thinner) as previously prescribed Diabetes: - Continue to follow with your diabetes doctor. Your sugars may be elevated while on steroids Follow-Up: - Please see your family doctor in 7-10 days - Please keep your appointment with Pulmonology as previously prescribed Current Hospital Diet Patient's current hospital diet: Diabetes Type 2 Diet, AHA Diet (Heart Healthy) Discharge Diet Recommended Diet: AHA Diet (Heart Healthy), Diabetes Type 2 Diet Pending Studies Studies pending at discharge: no Laboratory Results Hemoglobin A1c Test 03/22/17 06:15 Range/Units Estimated Average Glucose 180 mg/dl Hemoglobin A1c 7.9 H 4.5-5.6 % Lipid Panel Test 01/06/17 13:37 Range/Units Triglycerides Level 149 0-150 mg/dl Cholesterol Level 178 0-200 mg/dl HDL Cholesterol 50 mg/dl Cholesterol/HDL Ratio 3.6 LDL Cholesterol, Calculated 98 mg/dl Medical Emergencies . Who to Call and When: Medical Emergencies: If at any time you feel your situation is an emergency, please call 911 immediately. . Non-Emergent Contact Non-Emergency issues call your: Primary Care Provider Call Non-Emergent contact if: you have a fever, your pain is concerning you, you have any medication questions . . "Provider Documentation" section prepared by Estela Barrios. . VTE Core Measure Inpt VTE Proph given/why not?: Other Anticoagulation
--- NOTE | 2017-03-24 10:33 | CARDIOLOGY PROGRESS NOTE ---
DATE: 03/24/2017 SUBJECTIVE: Mr. Benjamin is resting comfortably in bed without complaints of chest pain. His dyspnea has improved. Denies palpitations. OBJECTIVE: VITAL SIGNS: Blood pressure is 102/55 with a regular pulse of 78. Respiratory rate is 16. The patient is afebrile at 36.5 degrees Celsius. Saturation is 96% on 2 liters nasal cannula. NECK: Supple with full carotid upstrokes. No carotid bruits. Jugular venous pressure is flat at 90 degrees. There is no thyromegaly. CARDIOVASCULAR: Reveals a regular rhythm with a 2/6 basal systolic ejection murmur. Heart sounds are distant. No S3. LUNGS: Note coarse breath sounds throughout, but no rales. ABDOMEN: Soft without bruits. Ileostomy is noted in the right lower quadrant. EXTREMITIES: Reveal intact radial artery pulses bilaterally. There is no peripheral edema. LABORATORY DATA: CBC notes a hemoglobin of 15.1, hematocrit 45.0, white count 13.7, and platelet count 120,000. Electrolytes note a sodium of 136, potassium 4.8, chloride 105, bicarbonate 25, BUN 25, creatinine 1.1, and glucose 205. Troponin I level is 0.06. surveillance system monitor is benign. IMPRESSION AND PLAN: 1. Elevated troponin -- minor elevation of no clinical significance. 2. Hypertrophic obstructive cardiomyopathy -- noted at the time of echocardiogram on 03/02/2017. He had a low gradient across his outflow tract at that time. 3. Paroxysmal atrial fibrillation -- tolerating amiodarone and Xarelto at renally adjusted dose. 4. Hypertension -- controlled. 5. Hypercholesterolemia -- continue statin. 6. Chronic obstructive pulmonary disease. 7. Diabetes mellitus.
[2017-03-24] MEDS ORDERED: IPRASOL4 INH (11:46)
--- NOTE | 2017-03-24 13:22 | Discharge Summary ---
Discharge Summary Date of Service Mar 24, 2017. Discharge Summary Admission Date: Mar 21, 2017 at 15:13 Discharge Date: Mar 24, 2017 Discharge Disposition: Home Principal Diagnosis: Acute Respiratory Failure 2/2 COPD Exacerbation Problems/Secondary Diagnoses: (1) Hypertrophic cardiomyopathy Status: Chronic Immunizations: Have You Had Influenza Vaccine: Yes Influenza Vaccine Date: Jul 26, 2013 History of Tetanus Vaccine?: Unknown History of Pneumococcal: Yes Pneumococcal Date: Jul 26, 2013 History of Hepatitis B Vaccine: No Procedures: CT ANGIOGRAM OF THE CHEST FINDINGS: There is a partially visualized 10 cm upper pole left renal cyst The heart is enlarged. There are coronary artery calcifications.. There are calcified hilar and subcarinal lymph nodes, likely on a postinflammatory basis. There is ectasia of the ascending thoracic aorta which measures 38 mm. There is dilatation of the main pulmonary artery which measures 37 mm. This may indicate pulmonary artery hypertension. There are no filling defects to indicate acute pulmonary embolism. No pleural effusions are visualized. There are postsurgical changes of a left lower lobectomy. There is mild right lower lobe bronchiectasis. There is a small left pleural effusion. There is no focal pulmonary consolidation. There is a calcified right middle lobe granuloma. There is a calcified right upper lobe granuloma. There is a tiny calcified left upper lobe granuloma. IMPRESSION: 1. No evidence of acute pulmonary embolism 2. Postsurgical changes of a left lower lobectomy 3. No evidence of focal pulmonary consolidation 4. Mild right lower lobe cylindrical bronchiectasis with mild bronchial wall thickening 5. Small left pleural effusion with chronic left basilar scarring 6. Old granulomatous changes Consultations: 1. Cardiology Medication Reconciliation New Medications: Albuterol (Ventolin Hfa) 60 Puffs/5400 Mcg Aers 2 PUFFS INH Q4H PRN for SOB/Wheezing, #1 INHALER 1 Refill Ipratropium-Albuterol (Duoneb) 3 Ml Nebu 1 TREATMENT INH Q4H PRN for SOB/Wheezing for 30 Days, #1 BOX Prednisone Tab (Prednisone) 10 Mg Tab 10 MG PO UD, #30 TAB Take 40 mg x 3 days, 30 mg x 3 days, then 20 mg x 3 days, then 10 mg x 3 days. Continued Medications: Bimatoprost (Lumigan) 0.01 % Perla 1 DROP OPB DAILY, #7 Calcium Carbonate-Vitamin D (Oscal 500/200 D-3) 1 Tab Tab 2 TAB PO DAILY Coenzyme Q10 (Ubidecarenone) (Co Q10) 50 Mg Cap 50 CAP PO DAILY, CAP Finasteride (Proscar) 5 Mg Tab 5 MG PO DAILY, #90 Fish Oil (Grethel-3) 1 Ea Cap 1 CAP PO DAILY, CAP Insulin Glargine (Lantus) 100 Unit/Ml Inj 25 UNITS SC BID, VIAL Insulin Human Lispro (Humalog) 1 Ea Inj 25 UNITS SQ BID Levothyroxine Sodium (Levothyroxine Sodium) 50 Mcg Tab 50 MCG PO DAILY, #90 Rivaroxaban (Xarelto) 15 Mg Tab 15 MG PO DAILY for 30 Days, #30 TAB Rosuvastatin Calcium (Rosuvastatin Calcium) 5 Mg Tab 5 MG PO DAILY, #36 Timolol Hemihydrate (Betimol) 75 Drops/5 Ml Soln 1 DROP OPB QPM Discontinued Medications: Amiodarone HCl (Amiodarone HCl) 200 Mg Tab 200 MG PO BID for 30 Days, #60 TAB Discharge Exam Review of Systems: Constitutional: No fever, No chills Respiratory: + cough, + sputum, No wheezing, No dyspnea on exertion, No dyspnea at rest Cardiovascular: No chest pain, No palpitations Abdomen: No pain, No nausea, No vomiting, No diarrhea, No constipation Musculoskeletal: No swelling, No calf pain Genitourinary - Male: No dysuria Hematologic / Lymphatic: No abnormal bleeding/bruising, No clotting problems Physical Exam: General Appearance: WD/WN, no apparent distress Eyes: sclerae normal ENT: hearing grossly normal Neck: supple, no JVD, trachea midline Respiratory/Chest: no respiratory distress, no accessory muscle use, + wheezing (scattered expiratory wheeze) Cardiovascular: regular rate, rhythm, no gallop, no murmur Abdomen / GI: normal bowel sounds, non tender, soft Extremities: no calf tenderness, no pedal edema Neurologic/Psychiatric: alert, oriented x 3 Skin: normal color, warm/dry Hospital Course ADMISSION: Mr. 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 Prior to this onset he denies having any difficulty with breathing and this SOB has been progressive over the past few days but worsened today. He notes that he had SOB and audible wheeze and then developed a cough yesterday that produces osorio/ green sputum. His notes that he did not look well yesterday and got worse today. He was recently visiting family at [facility] a few days ago. Associated generalized weakness predominantly today. He did sustain a fall yesterday without injury due to generalized weakness but was easily able to get up after this. He denies lung disease except for Lung CA approx. 5 years ago where he underwent LLL Lobectomy. He is a former smoker and outpatient PFTs reveal mild to moderate obstructive findings. He is not prescribed any inhalers or maintenance respiratory medications. He was prescribed amiodarone on previous admission but states he stopped taking that 2 days after discharge due to concerns of side effects and has not taken it since. He denies fever/chills, CP, palpitations, N/V, abdominal pain, dysuria, constipation/diarrhea, melena/ hematochezia In the ED, he is afebrile and without leukocytosis. He has mildly labored breathing and is ill-appearing but does not appear in distress. CTA of the chest reveals findings suggesting pulmonary HTN with small L pleural effusion without consolidations. CK and CK-MB mildly elevated but troponin negative. Echo (03/02) - hypertrophic cardiomyopathy, EF >70% and L ventricular outflow obstruction. EKG with NSR with PVCs and depressions in V5-V6 suggesting repolarization abnormality. He will be admitted to telemetry for COPD exacerbation HOSPITAL COURSE: Mr. Benjamin was admitted for a COPD exacerbation. He was treated with nebulizers and steroids. He continues to have intermittent wheezing on examination but has marked improvement in respiratory status as he is less labored. He is saturating adequately on room air. He was provided a prescription for a nebulizer machine and Duonebs. Also, a script was provided for Albuterol inhaler. He may benefit from maintenance inhalers. All home medications were continued as previously prescribed. Of note, patient states he has not taken his amiodarone since 2 days after previous admission. 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 During admission, he was noted to have a mildly elevated troponin that peaked on 0.06 which is likely from demand given COPD exacerbation. He did have evidence of ST depressions in V3-5 which was evident on previous EKGs but did improve during admission. This may possibly be a repolarization abnormality given his H/O hypertrophic cardiomyopathy. Patient is optimal for D/C home with outpatient follow-up. Disposition: Consideration for maintenance inhalers for COPD. Total Time Spent: Greater than 30 minutes This includes examination of the patient, discharge planning, medication reconciliation, and communication with other providers. Discharge Instructions Please refer to the electronic Patient Visit Report (Discharge Instructions) for additional information. Additional Copies To Olman Latham M.D.
[2017-03-24] MEDS ORDERED: INSULIN GLARGINE SOLOSTAR 100 UNITS/ML 3 ML PEN SC SCH (21:00)
== END 2017-03-24 15:42 | disposition home or self-care (01) | DRG 189 ==
LOC: C.EDB 11:06 → C.MED 15:13 → ENRESERV 15:59
PROVIDERS: ADMIT Hospitalist; ATTEND Internal Medicine
DX: J96.01 Acute respiratory failure with hypoxia (principal); J44.1 Chronic obstructive pulmonary disease with (acute) exacerbation; I42.1 Obstructive hypertrophic cardiomyopathy; I48.0 Paroxysmal atrial fibrillation; Z93.2 Ileostomy status; E03.9 Hypothyroidism, unspecified; Z85.118 Personal history of other malignant neoplasm of bronchus and lung; E83.39 Other disorders of phosphorus metabolism; E78.5 Hyperlipidemia, unspecified; E11.649 Type 2 diabetes mellitus with hypoglycemia without coma; I11.9 Hypertensive heart disease without heart failure; Z79.4 Long term (current) use of insulin; Z85.72 Personal history of non-Hodgkin lymphomas; Z87.891 Personal history of nicotine dependence

== ENCOUNTER → 2017-03-31 | Outpatient (CLI) | payer BC, OTHER ==
[~2017-03-31] MED LIST changes: -CRD200 PO; +IPRASOL4 INH; +PRED10TA PO; +PRVHFAIN INH
--- NOTE | 2017-03-31 16:52 | DIAGNOSTIC IMAGING REPORT ---
CHEST 2 VIEWS ROUTINE CLINICAL HISTORY: COPD WITH ACUTE EXACERBATION dyspnea COMPARISON STUDY: 03/21/2017 FINDINGS: Unchanged minimal pleural effusion left base combined with chronic pleural reactive change. Stable calcified granuloma peripheral aspect right midlung. Lungs otherwise appear clear. Moderate degenerative changes thoracic spine. IMPRESSION: 1. Small left pleural effusion combine with left basilar chronic pleural reactive change. 2. No significant change from the prior study. 3. No new or interval findings The above report was generated using voice recognition software. It may contain grammatical, syntax or spelling errors. Electronically signed by: Juan R Chavez M.D. 03/31/2017 4:51 PM Dictated Date/Time: 03/31/2017 4:50 PM
[2017-03-31 17:40] LABS: BASO % 0.1 %; BASO ABS # 0.02 K/uL (0-0.2); COMPLETE YES; EOS % 0.4 %; HEMATOCRIT 49.2 % (42-52); IG% 1.7 %; LYMPH % 2.6 %; LYMPH ABS # 0.41 K/uL (1.2-3.4); MEAN CELL VOLUME 82.8 fL (80-100); MEAN CORPUSCULAR HEMOGLOBIN 28.6 pg (25-34); MEAN CORPUSCULAR HGB CONC 34.6 g/dl (32-36); MEAN PLATELET VOLUME 11.5 fL (7.4-10.4); NEUT % 88.2 %; PLATELET COUNT 203 K/uL (130-400); RED BLOOD COUNT 5.94 M/uL (4.7-6.1); WHITE BLOOD COUNT 15.64 K/uL (4.8-10.8)
== END | disposition home or self-care (01) ==
LOC: C.RAD1850 16:24
PROVIDERS: ATTEND Internal Medicine Pulmonary Disease
DX: J20.9 Acute bronchitis, unspecified (principal); J44.1 Chronic obstructive pulmonary disease with (acute) exacerbation

== ENCOUNTER → 2017-04-25 | Outpatient (CLI) | payer BC ==
[~2017-04-25] MED LIST changes: -IPRASOL4 INH
== END | disposition home or self-care (01) ==
LOC: C.RC 04-21 16:57
PROVIDERS: ATTEND Internal Medicine Pulmonary Disease
DX: J44.9 Chronic obstructive pulmonary disease, unspecified (principal)

== ENCOUNTER → 2017-07-31 | Outpatient (CLI) | payer BC ==
[~2017-07-31] MED LIST changes: +ROSU5TAB19 PO; -ROSU5TAB9 PO
[2017-07-31 13:53] LABS: MEAN CORPUSCULAR HGB CONC 35.2 g/dl (32-36)
[2017-07-31 14:06] LABS: HEMATOCRIT 50.8 % (42-52); HEMOGLOBIN 17.9 g/dL (14.0-18.0); MEAN CELL VOLUME 82.6 fL (80-100); MEAN CORPUSCULAR HEMOGLOBIN 29.1 pg (25-34); RED CELL DISTRIBUTION WIDTH CV 13.6 % (11.5-14.5); RED CELL DISTRIBUTION WIDTH SD 40.9 fL (36.4-46.3); WHITE BLOOD COUNT 8.58 K/uL (4.8-10.8)
[2017-07-31 14:20] LABS: BASO % 1.3 %; BASO ABS # 0.11 K/uL (0-0.2); BLOOD UREA NITROGEN 12 mg/dl (7-18); CARBON DIOXIDE 28 mmol/L (21-32); CREATININE 1.07 mg/dl (0.60-1.40); EOS % 5.5 %; EOS ABS # 0.47 K/uL (0-0.5); GLUCOSE 138 mg/dl (70-99); IG# 0.03 K/uL (0.00-0.02); LYMPH % 11.5 %; LYMPH ABS # 0.99 K/uL (1.2-3.4); MONO % 9.7 %; MONO ABS # 0.83 K/uL (0.11-0.59); NEUT % 71.7 %; NEUT ABS # 6.15 K/uL (1.4-6.5); PLATELET COUNT 126 K/uL (130-400); POTASSIUM 4.3 mmol/L (3.5-5.1); SODIUM 137 mmol/L (136-145)
[2017-07-31 14:24] LABS: HEMOGLOBIN A1C 8.6 % (4.5-5.6)
== END | disposition home or self-care (01) ==
LOC: C.LABBC 11:26
PROVIDERS: ATTEND Internal Medicine Geriatric Medicine
DX: E03.9 Hypothyroidism, unspecified (principal); M81.0 Age-related osteoporosis without current pathological fracture; I48.0 Paroxysmal atrial fibrillation; J44.9 Chronic obstructive pulmonary disease, unspecified; I10 Essential (primary) hypertension; E55.9 Vitamin D deficiency, unspecified; E11.9 Type 2 diabetes mellitus without complications

== ENCOUNTER → 2017-08-28 | Outpatient (CLI) | payer BC ==
--- NOTE | 2017-08-29 05:58 | PAP/PSG TECHNICIAN REPORT ---
[facility] Director Of Enterprise Strategy Polysomnogram Report Study name: None Report date: 08/29/2017 Study date: 08/28/2017 Referring Physician: Dr. Otoniel Coker DO Name: RIGO LUTZ Interpreting Physician: Otoniel Coker D.O. Date of : 1930 Director Of Enterprise Strategy: PREM Palafox. Sex: Male Age: 87 StudyType: PSG Weight: 190 lbs Height: 87 years, Height 5' 9" BMI: 28.06 Medications: Bimatoprost 0.03%, Calcium tabs, Finasteride 5 mg, Fish Oil, Humalog, Ipratopium-Albuterol 0.5-2.3 , Lantus, Levothyroxine Sodium 50 mcg, Rosuvastatin Calcium 5 mg, Ventolin HFA 108 ( 90 base). Vitamin D 1000 units, Xarelto 15 mg Patient History 87 yr. old male here for a diagnostic sleep study. Patient had an overnight pulse oximetry study that showed he was under 88% for 374 minutes. Patients ESS tonight was 5/24 however during his office visit it was 7/24. Parameters Monitored NPSG: E1-M2, E2-M1, Fp1-M2, Fp2-M1, F3-M2, F4-M2, F4-M1, C3-M2, C4-M2, C4-M1, O1-M2, O2-M2, O2-M1, T3-M2, T4-M1, P3-M2, P4-M1, CHIN1, CHIN2, HR, EKG, Legs, PFLOW, SNOR, FLOW, CFLOW, Tidal Volume, THOR, ABDO, SpO2, PLTH, CPRESS, ETCO2 Wave, ETCO2, pH Sleep Architecture Sleep Stages Time at Lights Off 10:39:30 PM STAGES Time (min.) TST (%) Time at Lights On 5:05:00 AM Wake 99.5 -- Total Recording Time (TRT) 385.00 min. N1 30.5 11 Total Sleep Period (TSP) 335.0 min. N2 135.5 47 Total Sleep Time (TST) 285.5min. N3 68.0 24 Awake Time 99.5 min. REM 51.5 18 Wake after Sleep Onset 78.5 min. Sleep Efficiency (SE) 74 % Sleep Onset Latency (CARIE) 21.5 min. Number of Stage 1 Shifts None Awakenings 31 Stage Changes 115 Number of REM periods 7 REM 51.5 18 REM Latency 69.5 min. NREM 234.0 82 Body Position Analysis Supine Right Left Side Prone Vertical Total Sleep Time (min.) 248.0 0.0 123.5 123.50 0.0 0.0 Total Sleep Time (%) 57% 0% 43% 43 0% N/A% Total Sleep Time REM (min.) 14.0 0.0 37.5 None 0.0 0.0 Total Sleep Time NREM (min.) 148.0 0.0 86.0 None 0.0 0.0 Intermittent Wake (min.) 86.0 0.0 13.5 None 0.0 0.0 Total Sleep Period (%) 59% None None None None None Arousals Myoclonus (PLM) * Events Count Index Events Count Index Spontaneous 10 2 Events Awake (PLMW) 65 39.2 Respiratory 4 1.1 Events Asleep w/ Arousal (PLMA) 20 4.2 PLM 20 4 Events Asleep w/o Arousal (PLMS) 208 43.7 Snoring 8 2 Total Asleep 228 47.9 Total 42 9 Total 293 46 Respiratory Analysis * CA OA MA CH H RERA Total Count 19 0 2 0 8 0 29 Index 4.0 0.0 0.4 0 1.7 0 6.1 Mean Duration 15.8 0.0 14.8 0.00 27.0 0.0 18.8 Longest Duration 21.4 0.0 17.1 0.00 17.1 0.0 38.8 Respiratory Event Summary Total Supine ~Supine Right Left Prone REM NREM Apneas Count 21 19 2 N/A 2 N/A 0 21 Index 4.4 7 1 N/A 1.0 N/A 0 5 Hypopneas (4% Desat) Count 8 8 0 N/A 0 N/A 0 8 Index 1.7 3.0 0 N/A 0.0 N/A 0.0 2.1 Apneas & All Hypopneas Count 29 27 2 N/A 2 N/A 0 29 Index 6.1 10 1 N/A 1 N/A 0.0 7.4 Respiratory Events (Energy Derivatives Trader+All Hyp+RERA) Count 29 27 2 N/A 2 N/A 0 29 Index 6.1 10 1 N/A 1.0 N/A 0.0 7.4 Respiratory Related Arousal Count 4 27 0 N/A 0 N/A 0 5 Index 1.1 2 0 N/A 0 N/A 0 1 Snoring Analysis Supine Right Left Prone REM NREM Total Snore duration 11.5 min Snores count 150 N/A 472 N/A 107 515 622 Snore mean duration 1.1 Sec Snores index 56 N/A 229 N/A 124.7 132.1 130.7 TST with snoring (%) 4.0% Desaturation Event Summary: Minimum %SpO2 Event Count Mean/Min/Max Duration(sec.) Desaturation Index % Time In Bed > 90 28 31.6 / 7.5 / 58.3 9.1 48.9 86 - 90 3 12.8 / 7.5 / 17.3 0.9 51.0 81 - 85 0 N/A 0.0 0.1 76 - 80 0 N/A 0.0 0.1 71 - 75 0 N/A 0.0 0.0 66 - 70 0 N/A 0.0 0.0 61 - 65 0 N/A 0.0 0.0 56 - 60 0 N/A 0.0 0.0 51 - 55 0 N/A 0.0 0.0 < 50 0 N/A 0.0 0.0 Total REM NREM Awake <50% 0.0 min. 0.0 min. 0.0 min. 0.0 min. 51 - 60% 0.0 min. 0.0 min. 0.0 min. 0.0 min. 61 - 70% 0.0 min. 0.0 min. 0.0 min. 0.0 min. 71 - 80% 0.2 min. 0.0 min. 0.0 min. 0.2 min. 81 - 90% 194.0 min. 39.7 min. 131.3 min. 23.0 min. 91 - 100% 185.6 min. 11.7 min. 102.3 min. 71.6 min. Average 91 90 90 92 Minimum SpO2 78 87 87 78 Desaturation Event Index 4.5 1.2 5.1 6.6 # Desat. Events below 89% 5 N/A 3 2 Time(%) with Saturation below 89% 6.0 1.8 3.8 0.4 Time(min.) with Saturation below 89% 22.7 6.7 14.4 1.6 Time (mins) REM (mins) NREM (mins) % of TST SpO2 Below 90% 17 1 N16 28.8 SpO2 Below 88% 1 0 0 1 Heart Rate Analysis Min (bpm) Max (bpm) Average (bpm) Awake 50 127 60 NREM 45 72 57 REM 52 64 56 Overall 45 72 57 Supplemental O2 Values Minimum O2 level: None Value Start Time End Time Director Of Enterprise Strategy Comments Mr. Lutz slept in the left and supine positions. Cardiac arrhythmia and PLMs noted. No bruxism noted. Snoring was noted and scored as a 3 on a scale of 0 through 5. (0=no snoring, 5=snoring loud enough to be heard through a closed door or down the escalera way) Mr. Lutz did not wake to use the restroom during the night. Mr. Lutz stated, that was a normal night. The final report will be interpreted and signed by a sleep physician. The completed physician report will then be placed in the patient medical record. Therapy (cm H2O) 0 TIB (min.) 385.0 TST (min.) 285.5 Sleep Onset (min.) 21.5 REM Onset From Sleep (min.) 69.5 Sleep Efficiency % 74 Wakefulness (%) 26 Wakefulness (min.) 99.5 NREM 1 (%) 11 NREM 1 (min.) 30.5 NREM 2 (%) 47 NREM 2 (min.) 135.5 NREM 3 (%) 24 NREM 3 (min.) 68.0 REM (%) 18 REM (min.) 51.5 # Arousals 42 Arousal Index 9 # Snore 622 Snore Index 130.7 AHI 6.1 AHI Supine 10 AHI Non-Supine 1 NREM AHI 7.4 REM AHI 0.0 RDI 6.1 # Obstructive Apnea 0 # Central Apnea 19 # Mixed Apnea 2 # Hypopneas 8 RERAs 0 Total Respiratory Events 34 Time Below SpO2 89% (min.) 21.1 Mean NREM SpO2 (%) 90 Mean REM SpO2 (%) 90 Mean Sleep SpO2 (%) 90 Min NREM SpO2 (%) 87 Min REM SpO2 (%) 87 Position Supine (min.) 248.0 Position Non-supine (min.) 123.5 LM Index Sleep 47.9 LM Index NREM 57.2 LM Index REM 5.8 Mean Heart Rate (bpm) 57 Min Heart Rate (bpm) 45
--- NOTE | 2017-09-07 11:12 | Sleep Study ---
Sleep Study Report Date of Service: 08/28/2017 Sleep Study Report CLINICAL DATA: The patient is an 87-year-old male who has a history of atrial fibrillation. He is known to have nocturnal hypoxia. There has been possible observed apneas. The patient has some daytime somnolence with frequent days with 2 naps. His [place] score is 7. This was an in-lab overnight polysomnography. SLEEP ARCHITECTURE: The sleep period time was 335 minutes. The total sleep time was 285.5 minutes. The sleep efficiency was moderately reduced to 74 percent. The sleep latency was top normal at 21.5 minutes. Wake after sleep onset was elevated at 78.5 minutes. The REM latency was 69.5 minutes. Sleep consisted of stage N1 11 percent, stage N2 47 percent, stage N3 24 percent, stage REM 18 percent. AROUSAL DATA: The patient had a total of 42 arousals including 10 spontaneous arousals, 4 respiratory arousals, 20 PLM arousals, and 8 snoring arousals. The arousal index was 9. PLM DATA: The patient had 228 periodic limb movements of sleep for a PLM index of 47.9. There were 20 arousals associated with limb movements for a PLM arousal index of 4.2. EKG: The underlying cardiac rhythm was normal sinus. The cardiac rates 45-72 beats per minute. There were occasional extrasystoles. Some were PACs and some were PVCs. RESPIRATORY DATA: Patient had a total of 29 respiratory events including 19 central apneas, 2 mixed apneas, and 8 hypopneas. Hypopneas were scored according to the 4 percent desaturation rule. The longest apnea was 21.4 seconds. The mean duration of the hypopneas was 27 seconds. The apnea-hypopnea index was 6.1 events per hour. This reflects mild sleep apnea. OXIMETRY DATA: The average saturation was 91 percent. The minimum saturation was 78 percent. Patient had a total of 22.7 minutes with saturations less than 89 percent. CAMP DIRECTOR COMMENTS: Patient slept on the left and supine positions. Cardiac arrhythmia and PLMS noted. No bruxism noted. Snoring was noted and scored as a 3 on a scale of 0 through 5. The patient did not awaken to use the restroom during the night. IMPRESSIONS: 1. Mild sleep apnea-mixed central and obstructive 2. Periodic limb movement disorder COMMENTS: Patient has very mild sleep apnea. The majority of the events were centrals and occurred within the 1st 1 hour of sleep. There was relatively few episodes after this. His sleep was not that well consolidated. He had frequent periodic limb movements but with few arousals. Oxygenation was mildly abnormal. There was no noted episodes of atrial fibrillation. He did have occasional extrasystoles. It is doubtful that the patient needs definitive CPAP treatment in light of the very low apnea-hypopnea index with a predominance of centrals that resolved in less than 1 hour. He would benefit from continuing his oxygen at 2 liter nasal cannula. Clinical correlation is required to determine if he has symptoms of true restless leg syndrome. RECOMMENDATIONS: 1. Continue O2 2 liters HS 2. If possible try to avoid sleeping in the supine position. There is typically less apnea in positions other than supine. During this study he spent 59 percent of the night supine. 3. Weight loss is recommended in light of the mild elevation of body mass index at 28.06. Copies To 1: Otoniel Coker DO; Olman Latham M.D.
== END | disposition home or self-care (01) ==
LOC: C.NEUR 20:00
PROVIDERS: ATTEND Internal Medicine Pulmonary Disease
DX: G47.31 Primary central sleep apnea (principal); G47.33 Obstructive sleep apnea (adult) (pediatric); G47.61 Periodic limb movement disorder

== ENCOUNTER 2017-10-17 14:45 | Inpatient (IN) | payer BC, OTHER ==
[~2017-10-17] VITALS: Ht 175.3 cm; Wt 90.2 kg
[~2017-10-17 14:45] MED LIST changes: -LEVO50TA6 PO; -PRED10TA PO
[2017-10-17] MEDS ORDERED: DILTIAZEM BOLUS / DRIP IV STA ×2 (14:58→17:25)
[2017-10-17] MEDS ORDERED: DILTIAZEM HCL 5 MG/ML 5 ML VIAL ONE (14:59)
[2017-10-17] MEDS ORDERED: SODIUM CHLORIDE 0.9% 1000ML 1,000 ML IV STA (15:00)
[2017-10-17] MEDS ORDERED: DILTIAZEM HCL INJ 125 MG in DEXTROSE 5% 100ML IV PRN (15:15)
--- NOTE | 2017-10-17 15:37 | EMERGENCY ROOM VISIT NOTE ---
History Report prepared by Merlin: Gertrude Mann Under the Supervision of: Dr. Xavier Thomas M.D. First contact with patient: 14:53 Chief Complaint: CARDIAC ASSESSMENT Stated Complaint: A-FIB -- REF BY REGINA History of Present Illness The patient is a 87 year old male who presents to the Emergency Room with complaints of his heart beating rapidly for the past 4 or 5 days. Patient has a history of A. fib. He states he has been feeling more fatigued lately. He denies any chest pain or difficulty breathing. states they went to their PCPs office where an EKG was conducted and showed his heart rate was going fast. They were told to come to the emergency department via EMS, however they declined and stated they want to go home first and then drove here and their own private vehicle. Patient does not report any syncope. his notes he has been taking his Xarelto medication, the patient is not on any home medications for his heart rate. also notes he has been retaining fluid lately. 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 A total of ten systems were reviewed and were otherwise negative. 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 (18) Urosepsis Family History Diabetes mellitus Heart disease Hypertension Social History Smoking Status: Former Smoker Alcohol Use: occasionally Drug Use: none Marital Status: Housing Status: lives with family Occupation Status: retired Current/Historical Medications Scheduled Bimatoprost (Lumigan), 1 DROP OPB QAM Calcium Carbonate-Vitamin D (Oscal 500/200 D-3), 2 TABS PO DAILY Coenzyme Q10 (Ubidecarenone) (Co Q10), 50 MG PO DAILY Finasteride (Finasteride), 5 MG PO DAILY Home O2 Therapy (Oxygen), 2 LITERS NA HS Insulin Glargine (Lantus), 40 UNITS SC BID Insulin Human Lispro (Humalog), 38 UNITS SQ BID Levothyroxine Sodium (Levothyroxine Sodium), 50 MCG PO DAILY Rivaroxaban (Xarelto), 15 MG PO DAILY Tamsulosin HCl (Tamsulosin HCl), 0.4 MG PO DAILY Scheduled PRN Albuterol Hfa (Ventolin Hfa), 2 PUFFS INH Q4H PRN for SOB/Wheezing Allergies Coded Allergies: No Known Allergies (Verified , 03/01/17) Physical Exam Vital Signs Date Time Temp Pulse Resp B/P (MAP) Pulse Ox O2 Delivery O2 Flow Rate FiO2 10/17/17 16:53 108 20 108/87 94 Room Air 10/17/17 16:40 91 21 10/17/17 16:35 104 23 10/17/17 16:31 97/74 10/17/17 16:30 88 16 10/17/17 16:25 102 25 94 10/17/17 16:20 97 21 10/17/17 16:15 88 22 98/67 10/17/17 16:10 90 20 10/17/17 16:05 112 16 10/17/17 16:01 98/62 10/17/17 16:00 108 23 10/17/17 15:55 107 17 10/17/17 15:50 90 19 10/17/17 15:45 90 16 110/68 10/17/17 15:40 125 17 10/17/17 15:38 109/72 10/17/17 15:35 109 19 /60 10/17/17 15:30 97 19 10/17/17 15:26 104/72 10/17/17 15:25 88 16 10/17/17 15:20 97 12 100/73 10/17/17 15:16 95 10/17/17 15:15 107 16 104/79 10/17/17 15:11 108/68 10/17/17 15:10 113 16 10/17/17 15:08 149/64 10/17/17 15:06 145 10/17/17 15:05 135 17 10/17/17 15:04 127/86 10/17/17 14:49 36.7 145 20 147/78 95 Room Air Physical Exam Physical Exam GENERAL: He is oriented to person, place, and time. He appears well-developed and well-nourished. He does not appear distressed. ____ HENT: Exam performed. Head: Normocephalic and atraumatic. Right Ear: External ear normal. No mastoid tenderness. Left Ear: External ear normal. No mastoid tenderness. Mouth/Throat: The oropharynx is clear and moist. No trismus in the jaw. No dental abscesses or uvula swelling. No oropharyngeal exudate or tonsillar abscesses. ____ EYES: Conjunctivae and EOM are normal. Pupils are equal, round, and reactive to light. Right eye exhibits no discharge. Left eye exhibits no discharge. No scleral icterus. ____ NECK: Normal range of motion. Neck supple. No JVD present. No spinous process tenderness present. No carotid bruit present. No rigidity. No tracheal deviation and normal range of motion present. No Brudzinski's sign and no Kernig 's sign noted. ____ CV: Heart was tachycardic and irregular rhythm, normal heart sounds and intact distal pulses. There is no peripheral edema. Palpable radial pulses bue. ____ PULM/CHEST: Effort normal and breath sounds normal. No respiratory distress. No stridor. He has no wheezes. He has no rales. Chest Wall: He exhibits no tenderness. ____ ABD: The abdomen is soft. Bowel sounds are normal. He has no distension. No mass is present. There is no tenderness. There is no rebound, no guarding, no Mir's sign and no tenderness at McBurney's point. Rovsig negative MUSC/SKEL: Normal range of motion. There is no tenderness or deformity. 1+ pitting edema in the bilateral lower extremities. LYMPH: No cervical adenopathy. ____ NEURO: He is alert and oriented to person, place, and time. He has normal strength. No cranial nerve deficit or sensory deficit. Coordination and gait normal. GCS eye subscore is 4. GCS verbal subscore is 5. GCS motor subscore is 6. Cerebellar tests wnl. ____ SKIN: Skin is warm and dry. He is not diaphoretic. ____ PSYCH: He has a normal mood and affect. His behavior is normal. Judgment and thought content normal. ____ Medical Decision & Procedures ER Provider Diagnostic Interpretation: Radiology results as stated below per my review and radiologist interpretation: SINGLE VIEW CHEST CLINICAL HISTORY: Atypical chest pain. FINDINGS: An AP, portable, upright chest radiograph is compared to study dated 03/31/2017 and correlated with chest CT dated 03/21/2017. The examination is degraded by portable technique and patient rotation. There are calcified mediastinal lymph nodes. The heart is enlarged and there is atherosclerotic calcification of the thoracic aorta. The pulmonary vasculature is noncongested. There is postoperative change involving loss from left-sided pulmonary resection. Pleural fluid at the left lung base is similar to previous and likely on a postoperative basis. The lungs are otherwise clear noting scattered calcified granulomas. No pneumothorax is seen. The skeletal structures are osteopenic. The bony thorax is grossly intact. IMPRESSION: 1. Cardiomegaly with no acute cardiopulmonary abnormality. 2. There is postoperative change from left-sided pulmonary resection with pleural fluid at the left lung base. This is similar to prior studies. Electronically signed by: Esteban Rob M.D. 10/17/2017 4:03 PM Dictated Date/Time: 10/17/2017 4:01 PM Laboratory Results 10/17/17 15:25 Red Blood Count 5.52, Mean Corpuscular Volume 82.8, Mean Corpuscular Hemoglobin 29.0, Mean Corpuscular Hemoglobin Concent 35.0, Mean Platelet Volume 12.8, Neutrophils (%) (Auto) 78.9, Lymphocytes (%) (Auto) 8.9, Monocytes (%) (Auto) 8.2, Eosinophils (%) (Auto) 2.7, Basophils (%) (Auto) 0.8, Neutrophils # (Auto) 6.68, Lymphocytes # (Auto) 0.75, Monocytes # (Auto) 0.69, Eosinophils # (Auto) 0.23, Basophils # (Auto) 0.07 10/17/17 15:25 Test 10/17/17 15:25 10/17/17 15:32 White Blood Count 8.46 K/uL (4.8-10.8) Red Blood Count 5.52 M/uL (4.7-6.1) Hemoglobin 16.0 g/dL (14.0-18.0) Hematocrit 45.7 % (42-52) Mean Corpuscular Volume 82.8 fL (80-100) Mean Corpuscular Hemoglobin 29.0 pg (25-34) Mean Corpuscular Hemoglobin Concent 35.0 g/dl (32-36) Platelet Count 156 K/uL (130-400) Mean Platelet Volume 12.8 fL (7.4-10.4) Neutrophils (%) (Auto) 78.9 % Lymphocytes (%) (Auto) 8.9 % Monocytes (%) (Auto) 8.2 % Eosinophils (%) (Auto) 2.7 % Basophils (%) (Auto) 0.8 % Neutrophils # (Auto) 6.68 K/uL (1.4-6.5) Lymphocytes # (Auto) 0.75 K/uL (1.2-3.4) Monocytes # (Auto) 0.69 K/uL (0.11-0.59) Eosinophils # (Auto) 0.23 K/uL (0-0.5) Basophils # (Auto) 0.07 K/uL (0-0.2) RDW Standard Deviation 44.2 fL (36.4-46.3) RDW Coefficient of Variation 14.6 % (11.5-14.5) Immature Granulocyte % (Auto) 0.5 % Immature Granulocyte # (Auto) 0.04 K/uL (0.00-0.02) Prothrombin Time 13.4 SECONDS (9.0-12.0) Prothromb Time International Ratio 1.3 (0.9-1.1) Activated Partial Thromboplast Time 31.5 SECONDS (21.0-31.0) Partial Thromboplastin Ratio 1.2 Anion Gap 8.0 mmol/L (3-11) Est Creatinine Clear Calc Drug Dose 45.0 ml/min Estimated GFR () 64.4 Estimated GFR (Non- 55.5 BUN/Creatinine Ratio 18.0 (10-20) Calcium Level 8.9 mg/dl (8.5-10.1) Magnesium Level 1.8 mg/dl (1.8-2.4) Pro-B-Type Natriuretic Peptide 4463 pg/ml (0-1800) Bedside Troponin I 0.060 ng/ml (0-0.045) Laboratory results reviewed by me Medications Administered Medications (Trade) Dose Ordered Sig/Malik Route Start Time Stop Time Status Last Admin Dose Admin Diltiazem HCl (Cardizem Bolus / Drip) 1 ea NOW STAT IV 10/17/17 14:58 10/17/17 15:00 DC 10/17/17 15:20 1 EA Diltiazem HCl (Cardizem Inj) 25 mg STK-MED ONCE .ROUTE 10/17/17 14:59 10/17/17 15:01 DC 10/17/17 15:19 20 MG Sodium Chloride 1,000 ml @ 75 mls/hr [id number] STAT IV 10/17/17 15:00 10/18/17 04:19 10/17/17 15:00 75 MLS/HR Diltiazem HCl 125 mg/Dextrose 125 ml @ 0 mls/hr Q0M PRN IV 10/17/17 15:15 10/31/17 15:14 10/17/17 15:20 5 MLS/HR ECG Per My Interpretation Indication: palpitations Rate (beats per minute): 139 Rhythm: atrial fibrillation Findings: T-wave inversion (Lead I and AVL), other (QRS and QTC intervals within normal limits) Change: Repeat EKG at 1511 shows a fib, with a rate of 99, QRS and QTC within normal limits, T wave inversion in Lead I, AVL, and V6, very slight ST elevation in AVR. Computer is calling acute STEMI. Repeat EKG at 1514 shows a fib with a rate of 97, QRS and QTC intervals within normal limits, T wave inversion in Leads I, AVL, V5 and V6. Very slight ST elevation in AVR. Computer is again calling acute STEMI. ED Course 1455: The patient was evaluated in room B11. A complete history and physical exam was performed. The patient was immediately seen and put on a air sampling and monitoring. Heart rate of 145-165 on monitor. EKG at 1452 in triage: afib, RVR, with a rate of 139, QRS and QTC intervals within normal limits, T wave inversion in lead I, AVL. Blood pressure was stable and IV access obtained 25 mg of cardizone pushed. Heart rate was controlled. On monitor from 90-110. Repeat EKG at 1511 shows a fib, with a rate of 99, QRS and QTC within normal limits, T wave inversion in Lead I, AVL, and V6, very slight ST elevation in AVR. [employer] is calling acute STEMI, however I disagree with this interpretation. Repeat EKG at 1514 shows a fib with a rate of 97, QRS and QTC intervals within normal limits, T wave inversion in Leads I, AVL, V5 and V6. Very slight ST elevation in AVR. [employer] is again calling acute STEMI, I can disagree with this interpretation. Patient is reporting no chest pain or difficulty breathing. He states his palpitations have improved. I discussed the EKG findings with Dr. Rivera, cardiac cath attending draftsperson who viewed the EKGS. He does not believe that a STEMI is present and that a STEMI alert should not be called at this time. 1558: Dr. Rivera made aware of the elevated troponin, he states he will be down to see the patient. 165: Labs within normal limits with the exception of mildly elevated troponin. Dr. Rivera is at the bedside, he agrees that there is no STEMI and the patient should be admitted to medicine. No heparin started at this point as the patient reports he has been compliant with his Xarelto. Hospitalist [facility] Rosalino Phillip agrees to the admission. Medical Decision 1455: The patient was evaluated in room B11. A complete history and physical exam was performed. The patient was immediately seen and put on a air sampling and monitoring. Heart rate of 145-165 on monitor. EKG at 1452 in triage: afib, RVR, with a rate of 139, QRS and QTC intervals within normal limits, T wave inversion in lead I, AVL. Blood pressure was stable and IV access obtained 25 mg of cardizone pushed. Heart rate was controlled. On monitor from 90-110. Repeat EKG at 1511 shows a fib, with a rate of 99, QRS and QTC within normal limits, T wave inversion in Lead I, AVL, and V6, very slight ST elevation in AVR. [employer] is calling acute STEMI, however I disagree with this interpretation. Repeat EKG at 1514 shows a fib with a rate of 97, QRS and QTC intervals within normal limits, T wave inversion in Leads I, AVL, V5 and V6. Very slight ST elevation in AVR. [employer] is again calling acute STEMI, I can disagree with this interpretation. Patient is reporting no chest pain or difficulty breathing. He states his palpitations have improved. I discussed the EKG findings with Dr. Rivera, cardiac cath attending draftsperson who viewed the EKGS. He does not believe that a STEMI is present and that a STEMI alert should not be called at this time. 1558: Dr. Rivera made aware of the elevated troponin, he states he will be down to see the patient. 1652: Labs within normal limits with the exception of mildly elevated troponin. Dr. Rivera is at the bedside, he agrees that there is no STEMI and the patient should be admitted to medicine. No heparin started at this point as the patient reports he has been compliant with his Xarelto. Hospitalist [facility] Dr. Phillip agrees to the admission. Medication Reconcilliation Current Medication List: was personally reviewed by me Blood Pressure Screening Patient's blood pressure: Elevated blood pressure Blood pressure disposition: Elevated BP felt to be situational Consults Time Called: 1515 Consulting Physician: Dr. Rivera, cardiac cath attending draftsperson Returned Call: 1517 Dr. Rivera, viewed the EKGS. He does not believe that a STEMI is present and that a STEMI alert should not be called at this time. 1558: Dr. Rivera made aware of the elevated troponin. 1652: Dr. Rivera is at the bedside. Impression Primary Impression: Atrial fibrillation with rapid ventricular response Critical Care I have personally spent greater than 44 minutes of critical care time in the direct management of this patient. This includes bedside care, interpretation of diagnostic studies, and testing, discussion with consultants, patient, and family members, and other required patient management activities. This 44 minutes is in excess of all separately billable procedures. Scribe Attestation The scribe's documentation has been prepared under my direction and personally reviewed by me in its entirety. I confirm that the note above accurately reflects all work, treatment, procedures, and medical decision making performed by me. The chart was completed utilizing [employer] Speech voice recognition software. Grammatical errors, random word insertions, pronoun errors, and incomplete sentences are an occasional consequence of this system due to software limitations, ambient noise, and hardware issues. Any formal questions or concerns about the content, text, or information contained within the body of this dictation should be directly addressed to the physician for clarification. Departure Information Dispostion Being Evaluated By Hospitalist (Dr. Phillip, [facility] ) Referrals Olman Latham M.D. (PCP) Patient Instructions My [facility]
[2017-10-17 15:42] LABS: BASO % 0.8 %; BASO ABS # 0.07 K/uL (0-0.2); EOS % 2.7 %; EOS ABS # 0.23 K/uL (0-0.5); HEMATOCRIT 45.7 % (42-52); IG# 0.04 K/uL (0.00-0.02); LYMPH % 8.9 %; LYMPH ABS # 0.75 K/uL (1.2-3.4); MEAN CELL VOLUME 82.8 fL (80-100); MEAN PLATELET VOLUME 12.8 fL (7.4-10.4); MONO % 8.2 %; MONO ABS # 0.69 K/uL (0.11-0.59); NEUT % 78.9 %; NEUT ABS # 6.68 K/uL (1.4-6.5); PLATELET COUNT 156 K/uL (130-400); RED CELL DISTRIBUTION WIDTH CV 14.6 % (11.5-14.5); RED CELL DISTRIBUTION WIDTH SD 44.2 fL (36.4-46.3); WHITE BLOOD COUNT 8.46 K/uL (4.8-10.8)
[2017-10-17 15:51] LABS: INR 1.3 (0.9-1.1); PTT PATIENT 31.5 SECONDS (21.0-31.0)
[2017-10-17 15:58] LABS: CALCIUM 8.9 mg/dl (8.5-10.1); CREATININE 1.18 mg/dl (0.60-1.40); POTASSIUM 4.1 mmol/L (3.5-5.1)
--- NOTE | 2017-10-17 16:04 | DIAGNOSTIC IMAGING REPORT ---
SINGLE VIEW CHEST CLINICAL HISTORY: Atypical chest pain. FINDINGS: An AP, portable, upright chest radiograph is compared to study dated 03/31/2017 and correlated with chest CT dated 03/21/2017. The examination is degraded by portable technique and patient rotation. There are calcified mediastinal lymph nodes. The heart is enlarged and there is atherosclerotic calcification of the thoracic aorta. The pulmonary vasculature is noncongested. There is postoperative change involving loss from left-sided pulmonary resection. Pleural fluid at the left lung base is similar to previous and likely on a postoperative basis. The lungs are otherwise clear noting scattered calcified granulomas. No pneumothorax is seen. The skeletal structures are osteopenic. The bony thorax is grossly intact. IMPRESSION: 1. Cardiomegaly with no acute cardiopulmonary abnormality. 2. There is postoperative change from left-sided pulmonary resection with pleural fluid at the left lung base. This is similar to prior studies. Electronically signed by: Esteban Rob M.D. 10/17/2017 4:03 PM Dictated Date/Time: 10/17/2017 4:01 PM
[2017-10-17] MEDS ORDERED: PRS5 PO (16:27)
[2017-10-17] MEDS ORDERED: RIVA1.5T PO (16:27)
[2017-10-17] MEDS ORDERED: OXGN (16:27)
[2017-10-17] MEDS ORDERED: FLM4 PO (16:27)
[2017-10-17] MEDS ORDERED: VNTHFA/IN INH (16:27)
[2017-10-17] MEDS ORDERED: LEVO50TA6 PO (17:22)
[2017-10-17] MEDS ORDERED: GLUCOSE 10 TABS/TUBE PO PRN (17:30)
[2017-10-17] MEDS ORDERED: GLUCAGON FOR INJ 1 MG VIAL SQ PRN (17:30)
[2017-10-17] MEDS ORDERED: DEXTROSE 50% 50 ML SYR IV PRN (17:30)
[2017-10-17] MEDS ORDERED: GLUCOSE 40% GEL 15 GM TUBE PO PRN (17:30)
[2017-10-17] MEDS: INSULIN ASPART 100 UNITS/ML 3 ML PEN SC SCH ×2 (18:30→21:00)
--- NOTE | 2017-10-17 19:07 | History and Physical ---
History & Physical Date & Time of Service: Oct 17, 2017 at 18:47 Chief Complaint: A-Fib -- Ref By [facility] Primary Care Physician: Olman Latham M.D. History of Present Illness Source: patient Mr. Cas Benjamin is an 87-year-old gentleman with known history of atrial fibrillation who presents emergency department at the instruction of his primary care provider. Patient went to see his PCP earlier today for routine follow-up and was found to be in atrial fibrillation with rapid ventricular response. Despite tachycardia patient is completely asymptomatic. He does not endorse any chest pain, palpitation, nausea or vomiting. No other associated symptoms. No sick contacts or recent travel. Patient is on anticoagulation therapy but is not on any rate controlling medication. In the emergency department patient was given bolus of diltiazem and still remains on a trip. Heart rate ranges from 110-1 25 bpm. Otherwise patient is stable. 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 (11) DIAB ABBY WO COMPL, TYPE I [JUVENILE TYPE], NOT UNCNTRLD (12) Fever (13) Hypertrophic cardiomyopathy (14) Hypervolemia (15) Hypoglycemia (16) Hypoxia (17) ILEOSTOMY STATUS (18) Lobectomy of lung (19) MAL INGA BRONCH/LUNG NOS (20) Palpitations (21) Syncope, near (22) Urosepsis Diabetes mellitus, Hypothyroidism, BPH, persistent Atrial fibrillation Family History Diabetes mellitus Heart disease Hypertension Social History Smoking Status: Former Smoker Drug Use: none Marital Status: Housing status: lives with family Occupational Status: retired Immunizations History of Influenza Vaccine: Yes Influenza Vaccine Date: Jul 26, 2013 History of Tetanus Vaccine?: Unknown History of Pneumococcal: Yes Pneumococcal Date: Jul 26, 2013 History of Hepatitis B Vaccine: No Allergies Coded Allergies: No Known Allergies (Verified , 03/01/17) Home Medications Scheduled Bimatoprost (Lumigan), 1 DROP OPB QAM Calcium Carbonate-Vitamin D (Oscal 500/200 D-3), 2 TABS PO DAILY Coenzyme Q10 (Ubidecarenone) (Co Q10), 50 MG PO DAILY Finasteride (Finasteride), 5 MG PO DAILY Home O2 Therapy (Oxygen), 2 LITERS NA HS Insulin Glargine (Lantus), 40 UNITS SC BID Insulin Human Lispro (Humalog), 38 UNITS SQ BID Levothyroxine Sodium (Levothyroxine Sodium), 50 MCG PO DAILY Rivaroxaban (Xarelto), 15 MG PO DAILY Tamsulosin HCl (Tamsulosin HCl), 0.4 MG PO DAILY Scheduled PRN Albuterol Hfa (Ventolin Hfa), 2 PUFFS INH Q4H PRN for SOB/Wheezing Review of Systems Constitutional: No fever, No chills, No sweats, No weight loss, No weakness, No fatigue, No problem reported Eyes: No worsening of vision, No eye pain, No redness, No discharge, No diplopia, No problem reported ENT: No hearing loss, No unusual epistaxis, No nasal symptoms, No sore throat, No tinnitus, No dental problems, No trouble swallowing, No problem reported Respiratory: No cough, No sputum, No wheezing, No shortness of breath, No dyspnea on exertion, No dyspnea at rest, No hemoptysis, No problem reported Cardiovascular: No chest pain, No orthopnea, No PND, No edema, No claudication , No palpitations, No problem reported Abdomen: No pain, No nausea, No vomiting, No diarrhea, No constipation, No GI bleeding, No problem reported Musculoskeletal: No joint pain, No muscle pain, No swelling, No calf pain, No problem reported Neurologic: No memory loss, No paralysis, No weakness, No numbness/tingling, No vertigo, No balance problems, No problem reported Psychiatric: No depression symptoms, No anhedonism, No anxiety, No insomnia, No substance abuse, No problem reported Endocrine: No fatigue, No excessive thirst, No excessive urination, No problem reported Hematologic / Lymphatic: No abnormal bleeding/bruising, No clotting problems, No swollen lymph nodes, No night sweats, No problem reported Integumentary: No rash, No itch, No new/changing skin lesions, No color change , No bleeding, No problem reported Physical Exam Vital Signs Date Time Temp Pulse Resp B/P (MAP) Pulse Ox O2 Delivery O2 Flow Rate FiO2 10/17/17 17:48 114 20 103/74 94 Room Air 10/17/17 16:53 108 20 108/87 94 Room Air 10/17/17 16:40 91 21 10/17/17 16:35 104 23 10/17/17 16:31 97/74 10/17/17 16:30 88 16 10/17/17 16:25 102 25 94 10/17/17 16:20 97 21 10/17/17 16:15 88 22 98/67 10/17/17 16:10 90 20 10/17/17 16:05 112 16 10/17/17 16:01 98/62 10/17/17 16:00 108 23 10/17/17 15:55 107 17 10/17/17 15:50 90 19 10/17/17 15:45 90 16 110/68 10/17/17 15:40 125 17 10/17/17 15:38 109/72 10/17/17 15:35 109 19 /60 10/17/17 15:30 97 19 10/17/17 15:26 104/72 10/17/17 15:25 88 16 10/17/17 15:20 97 12 100/73 10/17/17 15:16 95 10/17/17 15:15 107 16 104/79 10/17/17 15:11 108/68 10/17/17 15:10 113 16 10/17/17 15:08 149/64 10/17/17 15:06 145 10/17/17 15:05 135 17 10/17/17 15:04 127/86 10/17/17 14:49 36.7 145 20 147/78 95 Room Air General Appearance: WD/WN, no apparent distress Head: normocephalic, atraumatic Eyes: normal inspection, PERRL, EOMI ENT: normal ENT inspection Neck: supple, no adenopathy, no carotid bruits, trachea midline Respiratory/Chest: chest non-tender, lungs clear, normal breath sounds, no respiratory distress Cardiovascular: no JVD, no murmur, + tachycardia, + irregularly irregular, + abnormal rate Abdomen/GI: normal bowel sounds, non tender, soft Back: no CVA tenderness Extremities/Musculoskelatal: + pedal edema, + swelling 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 as tested, no motor/sensory deficits Skin: normal color Diagnostics Laboratory Results Results Past 24 Hours Test 10/17/17 15:25 10/17/17 15:32 10/17/17 17:52 Range/Units White Blood Count 8.46 4.8-10.8 K/uL Red Blood Count 5.52 4.7-6.1 M/uL Hemoglobin 16.0 14.0-18.0 g/dL Hematocrit 45.7 42-52 % Mean Corpuscular Volume 82.8 80-100 fL Mean Corpuscular Hemoglobin 29.0 25-34 pg Mean Corpuscular Hemoglobin Concent 35.0 32-36 g/dl Platelet Count 156 130-400 K/uL Mean Platelet Volume 12.8 7.4-10.4 fL Neutrophils (%) (Auto) 78.9 % Lymphocytes (%) (Auto) 8.9 % Monocytes (%) (Auto) 8.2 % Eosinophils (%) (Auto) 2.7 % Basophils (%) (Auto) 0.8 % Neutrophils # (Auto) 6.68 1.4-6.5 K/uL Lymphocytes # (Auto) 0.75 1.2-3.4 K/uL Monocytes # (Auto) 0.69 0.11-0.59 K/uL Eosinophils # (Auto) 0.23 0-0.5 K/uL Basophils # (Auto) 0.07 0-0.2 K/uL RDW Standard Deviation 44.2 36.4-46.3 fL RDW Coefficient of Variation 14.6 11.5-14.5 % Immature Granulocyte % (Auto) 0.5 % Immature Granulocyte # (Auto) 0.04 0.00-0.02 K/uL Prothrombin Time 13.4 9.0-12.0 SECONDS Prothromb Time International Ratio 1.3 0.9-1.1 Activated Partial Thromboplast Time 31.5 21.0-31.0 SECONDS Partial Thromboplastin Ratio 1.2 Sodium Level 135 136-145 mmol/L Potassium Level 4.1 3.5-5.1 mmol/L Chloride Level 105 98-107 mmol/L Carbon Dioxide Level 22 21-32 mmol/L Anion Gap 8.0 3-11 mmol/L Blood Urea Nitrogen 21 7-18 mg/dl Creatinine 1.18 0.60-1.40 mg/dl Est Creatinine Clear Calc Drug Dose 45.0 ml/min Estimated GFR () 64.4 Estimated GFR (Non- 55.5 BUN/Creatinine Ratio 18.0 10-20 Random Glucose 269 70-99 mg/dl Calcium Level 8.9 8.5-10.1 mg/dl Magnesium Level 1.8 1.8-2.4 mg/dl Troponin I 0.052 0.056 0-0.045 ng/ml Pro-B-Type Natriuretic Peptide 4463 0-1800 pg/ml Bedside Troponin I 0.060 0-0.045 ng/ml Diagnostic Radiology Chest Radiograph 1. Cardiomegaly with no acute cardiopulmonary abnormality. 2. There is postoperative change from left-sided pulmonary resection with pleural fluid at the left lung base. This is similar to prior studies. Echocardiogram EF > 70% findings consistent with hypertrophic cardiomyopathy EKG EKG personally reviewed by on-call Cardiology - No STEMI; Nonischemic Impression Assessment and Plan FHR 87/M admitted for atrial fibrillation with RVR. Patient already on therapeutic anticoagulation therapy with Xarelto but is not on any rate or rhythm control medication. He was started on diltiazem drip and continues on infusion at a rate of 5. Patient is asymptomatic. Upon review home medication , he is on levothyroxine for his hypothyroidism. We will check a TSH level to rule out endocrine etiology. Will make adjustment if labs are abnormal. 1) Atrial fibrillation RVR - continue with Telemetry - first troponin 0.06; obtain serial trop - on diltiazem gtt - check TSH - continue anticoagulation therapy - Cardiology on board; will appreciate recommendations 2) Hypothyroidism - currently in RVR; etiology unkown but will check TSH - resume levothyroxine 50 mcg PO qAM 3) BPH - resume tamsuline and finasteride Diet: Heart Healthy with Fluid restriction 1500cc Activity: ad robson Code Status: FULL Resuscitation Status VTE Prophylaxis Will order VTE Prophylaxis: Yes
[2017-10-17 21:33] VITALS: BP 126/76; PULSE 101; TEMP 36.6; O2SAT 94; BMI 28.6
[2017-10-17 23:56] VITALS: BP 106/68; PULSE 89; TEMP 36.5; O2SAT 92
[2017-10-18] VITALS (9 sets, daily range): BP systolic 106–127; BP diastolic 64–76; PULSE 76–114; TEMP 36.4–36.6; O2SAT 92–98
[2017-10-18] MEDS ORDERED: ALBUTEROL HFA 8 GM INHALER INH PRN (01:30)
[2017-10-18] MEDS ORDERED: PHARMACY GLYCEMIC MGMT CONSULT PRN (02:20)
[2017-10-18] MEDS ORDERED: INSULIN GLARGINE SOLOSTAR 100 UNITS/ML 3 ML PEN SC ONE (02:30)
[2017-10-18] MEDS: INSULIN ASPART 100 UNITS/ML 3 ML PEN SC SCH ×5 (02:54→20:55)
[2017-10-18] MEDS: LEVOTHYROXINE 50 MCG TAB PO SCH (05:57)
[2017-10-18 07:27] LABS: MEAN CORPUSCULAR HGB CONC 34.8 g/dl (32-36)
[2017-10-18 07:46] LABS: HEMOGLOBIN A1C 8.8 % (4.5-5.6)
[2017-10-18 07:48] LABS: BASO % 0.9 %; BASO ABS # 0.06 K/uL (0-0.2); EOS ABS # 0.26 K/uL (0-0.5); HEMATOCRIT 43.7 % (42-52); HEMOGLOBIN 15.2 g/dL (14.0-18.0); IG# 0.05 K/uL (0.00-0.02); LYMPH % 11.7 %; LYMPH ABS # 0.76 K/uL (1.2-3.4); MEAN CELL VOLUME 83.1 fL (80-100); MEAN CORPUSCULAR HEMOGLOBIN 28.9 pg (25-34); MEAN PLATELET VOLUME 11.8 fL (7.4-10.4); MONO % 10.2 %; MONO ABS # 0.66 K/uL (0.11-0.59); NEUT % 72.4 %; NEUT ABS # 4.71 K/uL (1.4-6.5); PLATELET COUNT 129 K/uL (130-400); RED CELL DISTRIBUTION WIDTH CV 14.9 % (11.5-14.5); RED CELL DISTRIBUTION WIDTH SD 44.5 fL (36.4-46.3)
[2017-10-18 07:59] LABS: CALCIUM 8.3 mg/dl (8.5-10.1); CREATININE 1.17 mg/dl (0.60-1.40); POTASSIUM 3.9 mmol/L (3.5-5.1)
[2017-10-18] MEDS ORDERED: POTASSIUM CHLORIDE 20 MEQ TABCR PO STA (09:44)
[2017-10-18] MEDS ORDERED: AMIODARONE 200 MG TAB PO ONE (09:45)
[2017-10-18] MEDS ORDERED: DIGOXIN IV ONE (10:15)
--- NOTE | 2017-10-18 10:17 | Family Medicine Progress Note ---
Progress Note Date of Service Oct 18, 2017. Subjective Pt evaluation today including: conversation w/ patient, physical exam, chart review, lab review, conversation w/ business consultant Pain: None PO Intake: Good Voiding: no voiding problems, no incontinence Feels well today No complaints of chest pain, SOB, palpitations, coughing, orthopnea or lower extremity swelling States not really have symptoms with his RVR. Feels perhaps very slightly SOB with stairs but otherwise has been feeling well No concerns from nursing; no rate controlled on Diltiazem Additional Comments: A 10 point review of systems was negative unless stated above. Medications Current Inpatient Medications Medications (Trade) Dose Ordered Sig/Malik Route Start Time Stop Time Status Last Admin Dose Admin Diltiazem HCl 125 mg/Dextrose 125 ml @ 0 mls/hr Q0M PRN IV 10/17/17 15:15 10/18/17 12:00 10/17/17 15:20 5 MLS/HR Glucose (Glucose 40% Gel) 15-30 GRAMS 15 GRAMS... UD PRN PO 10/17/17 17:30 11/16/17 17:29 Glucose (Glucose Chew Tab) 4-8 Tablets 4 Tabl... UD PRN PO 10/17/17 17:30 11/16/17 17:29 Dextrose (Dextrose 50% 50ML Syringe) 25-50ML OF 50% DW IV FOR... UD PRN IV 10/17/17 17:30 11/16/17 17:29 Glucagon (Glucagon Inj) 1 mg UD PRN SQ 10/17/17 17:30 11/16/17 17:29 Albuterol (Ventolin Hfa Inhaler) 2 puffs Q4H PRN INH 10/18/17 01:30 11/17/17 01:29 Finasteride (Proscar Tab) 5 mg DAILY PO 10/18/17 09:00 11/17/17 08:59 Levothyroxine Sodium (Synthroid Tab) 50 mcg DAILYBB PO 10/18/17 06:00 11/17/17 05:59 10/18/17 05:57 50 MCG Rivaroxaban (Xarelto Tab) 15 mg QDD PO 10/18/17 16:45 11/17/17 16:44 Tamsulosin HCl (Flomax Cap) 0.4 mg DAILY PO 10/18/17 09:00 11/17/17 08:59 Miscellaneous Information (Consult Glycemic Management Pharmacy) 1 ea UD PRN N/A 10/18/17 02:20 11/17/17 02:19 Insulin Aspart (novoLOG ASPART) SLIDING SCALE ACHS SC 10/18/17 02:30 11/17/17 02:29 10/18/17 02:54 4 UNITS Insulin Glargine (Lantus Solostar Pen) SEE PROTOCOL TEXT BID SC 10/18/17 21:00 11/17/17 20:59 Digoxin (Lanoxin Tab) 0.125 mg DAILY@16 PO 10/19/17 08:00 11/18/17 07:59 UNV Miscellaneous (Stop Order) 1 ea TODAY@1200 ONCE N/A 10/18/17 12:00 10/18/17 12:01 Amiodarone HCl (Cordarone Tab) 200 mg QID PO 10/18/17 16:00 11/17/17 15:59 UNV Objective Vital Signs Date Time Temp Pulse Resp B/P (MAP) Pulse Ox O2 Delivery O2 Flow Rate FiO2 10/18/17 11:16 36.4 76 20 107/65 (79) 95 Room Air 10/18/17 10:34 98 10/18/17 08:00 Room Air 10/18/17 07:20 36.4 98 20 106/70 (82) 93 Room Air 10/18/17 04:00 92 Room Air 10/18/17 03:28 36.4 86 18 106/65 (79) 92 10/18/17 02:35 94 110/70 (83) 10/18/17 00:00 92 Room Air 10/17/17 23:56 36.5 89 18 106/68 (81) 92 Room Air 10/17/17 21:33 36.6 101 20 126/76 94 Room Air 10/17/17 20:31 107 20 92/63 94 10/17/17 19:09 Room Air 10/17/17 19:00 99 17 103/83 10/17/17 18:45 96 22 131/80 10/17/17 18:30 105 21 122/84 10/17/17 18:15 91 18 131/71 10/17/17 18:00 100 18 128/66 10/17/17 17:48 114 20 103/74 94 Room Air 10/17/17 16:53 108 20 108/87 94 Room Air 10/17/17 16:40 91 21 10/17/17 16:35 104 23 10/17/17 16:31 97/74 10/17/17 16:30 88 16 10/17/17 16:25 102 25 94 10/17/17 16:20 97 21 10/17/17 16:15 88 22 98/67 10/17/17 16:10 90 20 10/17/17 16:05 112 16 10/17/17 16:01 98/62 10/17/17 16:00 108 23 10/17/17 15:55 107 17 10/17/17 15:50 90 19 10/17/17 15:45 90 16 110/68 10/17/17 15:40 125 17 10/17/17 15:38 109/72 10/17/17 15:35 109 19 /60 10/17/17 15:30 97 19 10/17/17 15:26 104/72 10/17/17 15:25 88 16 10/17/17 15:20 97 12 100/73 10/17/17 15:16 95 10/17/17 15:15 107 16 104/79 10/17/17 15:11 108/68 10/17/17 15:10 113 16 10/17/17 15:08 149/64 10/17/17 15:06 145 10/17/17 15:05 135 17 10/17/17 15:04 127/86 10/17/17 14:49 36.7 145 20 147/78 95 Room Air Physical Exam General Appearance: WD/WN, no apparent distress Eyes: normal inspection, EOMI ENT: hearing grossly normal, pharynx normal Neck: supple, no adenopathy, no JVD Respiratory/Chest: + pertinent finding (slgith expiratory wheezing bilaterally) Cardiovascular: no murmur, + irregularly irregular, + pertinent finding ( normal rate) Abdomen: normal bowel sounds, non tender, soft Extremities: non-tender, no pedal edema Neurologic/Psychiatric: alert, normal mood/affect, oriented x 3 Skin: normal color, warm/dry, no rash Lymphatic: no adenopathy Laboratory Results Last 24 Hours Test 10/17/17 15:25 10/17/17 15:32 10/17/17 17:52 10/18/17 02:49 White Blood Count 8.46 K/uL Red Blood Count 5.52 M/uL Hemoglobin 16.0 g/dL Hematocrit 45.7 % Mean Corpuscular Volume 82.8 fL Mean Corpuscular Hemoglobin 29.0 pg Mean Corpuscular Hemoglobin Concent 35.0 g/dl Platelet Count 156 K/uL Mean Platelet Volume 12.8 fL Neutrophils (%) (Auto) 78.9 % Lymphocytes (%) (Auto) 8.9 % Monocytes (%) (Auto) 8.2 % Eosinophils (%) (Auto) 2.7 % Basophils (%) (Auto) 0.8 % Neutrophils # (Auto) 6.68 K/uL Lymphocytes # (Auto) 0.75 K/uL Monocytes # (Auto) 0.69 K/uL Eosinophils # (Auto) 0.23 K/uL Basophils # (Auto) 0.07 K/uL RDW Standard Deviation 44.2 fL RDW Coefficient of Variation 14.6 % Immature Granulocyte % (Auto) 0.5 % Immature Granulocyte # (Auto) 0.04 K/uL Prothrombin Time 13.4 SECONDS Prothromb Time International Ratio 1.3 Activated Partial Thromboplast Time 31.5 SECONDS Partial Thromboplastin Ratio 1.2 Sodium Level 135 mmol/L Potassium Level 4.1 mmol/L Chloride Level 105 mmol/L Carbon Dioxide Level 22 mmol/L Anion Gap 8.0 mmol/L Blood Urea Nitrogen 21 mg/dl Creatinine 1.18 mg/dl Est Creatinine Clear Calc Drug Dose 45.0 ml/min Estimated GFR () 64.4 Estimated GFR (Non- 55.5 BUN/Creatinine Ratio 18.0 Random Glucose 269 mg/dl Calcium Level 8.9 mg/dl Magnesium Level 1.8 mg/dl Troponin I 0.052 ng/ml 0.056 ng/ml Pro-B-Type Natriuretic Peptide 4463 pg/ml Bedside Troponin I 0.060 ng/ml Thyroid Stimulating Hormone (TSH) 3.220 uIu/ml Bedside Glucose 230 mg/dl Test 10/18/17 06:30 10/18/17 06:59 Bedside Glucose 208 mg/dl White Blood Count 6.50 K/uL Red Blood Count 5.26 M/uL Hemoglobin 15.2 g/dL Hematocrit 43.7 % Mean Corpuscular Volume 83.1 fL Mean Corpuscular Hemoglobin 28.9 pg Mean Corpuscular Hemoglobin Concent 34.8 g/dl Platelet Count 129 K/uL Mean Platelet Volume 11.8 fL Neutrophils (%) (Auto) 72.4 % Lymphocytes (%) (Auto) 11.7 % Monocytes (%) (Auto) 10.2 % Eosinophils (%) (Auto) 4.0 % Basophils (%) (Auto) 0.9 % Neutrophils # (Auto) 4.71 K/uL Lymphocytes # (Auto) 0.76 K/uL Monocytes # (Auto) 0.66 K/uL Eosinophils # (Auto) 0.26 K/uL Basophils # (Auto) 0.06 K/uL RDW Standard Deviation 44.5 fL RDW Coefficient of Variation 14.9 % Immature Granulocyte % (Auto) 0.8 % Immature Granulocyte # (Auto) 0.05 K/uL Platelet Estimate NORMAL Large Platelets 1+ Sodium Level 137 mmol/L Potassium Level 3.9 mmol/L Chloride Level 106 mmol/L Carbon Dioxide Level 26 mmol/L Anion Gap 5.0 mmol/L Blood Urea Nitrogen 17 mg/dl Creatinine 1.17 mg/dl Est Creatinine Clear Calc Drug Dose 50.0 ml/min Estimated GFR () 65.0 Estimated GFR (Non- 56.1 BUN/Creatinine Ratio 14.4 Random Glucose 207 mg/dl Estimated Average Glucose 206 mg/dl Hemoglobin A1c 8.8 % Calcium Level 8.3 mg/dl Total Bilirubin 1.4 mg/dl Direct Bilirubin 0.3 mg/dl Aspartate Amino Transf (AST/SGOT) 25 U/L Alanine Aminotransferase (ALT/SGPT) 33 U/L Alkaline Phosphatase 112 U/L Troponin I 0.044 ng/ml Total Protein 6.0 gm/dl Albumin 2.8 gm/dl Assessment and Plan 87 year old male with PMHx of Afib RVR, hypothyroidism, T1DM and BPH, presenting with asymptomatic Afib with RVR Our plan is as follows Atrial Fibrillation with RVR - Cardiology consulted; recommendations appreciated. - Troponin trending downwards, most recent 0.44; without CP, most likely supply demand - Rate controlled on Cardizem drip - Start Amiodarone 200 QID + IV Digoxin 0.25 mg now; transition off the drip; tomorrow will start PO digoxin - Continue telemetry monitoring - Chronically taking Xarelto; continue Hypothyroidism - Continue Synthroid - TSH WNL Asthma - On inhalers at home - Will start Duonebs PRN today as slightly wheezy BPH - Continue Finasteride - Continue Tamsulosin Type 1 Diabetes Mellitus - Continue Insulin SSI - AC/HS checks DVT Prophylaxis - SCD Knee, STEPHY Hosfelisha - On Xarelto Code Status - Level I Full Code Disposition - Telemetry - OT and PT evaluations Resident Physician Supervision Note: I interviewed and examined the patient. Discussed with Dr. Estrella and agree with findings and plan as documented in the note. Upon my exam, patient without complaints. His HR is now controlled; remains in rate-controlled a-fib. In retrospect, notes feeling a little winded going up steps over the past few days ; denies CP or palpitations. Will discuss rate-control options with cardiology, especially in the setting of a low-normal systolic blood pressure. Documented By: Gelacio Alvarez Continued [facility] stay due to: abnormal vital signs Discharge planning: home
[2017-10-18 10:18] LABS: ALBUMIN 2.8 gm/dl (3.4-5.0)
[2017-10-18] MEDS: FINASTERIDE 5 MG TAB PO SCH (10:34)
[2017-10-18] MEDS: TAMSULOSIN HCL 0.4 MG CAP PO SCH (10:34)
--- NOTE | 2017-10-18 10:57 | CARDIOLOGY CONSULTATION ---
DATE OF CONSULTATION: 10/18/2017 PERTINENT HISTORY: Mr. Benjamin is an 87-year-old male admitted yesterday with atrial fibrillation with rapid ventricular response. This consultation was ordered to assist in his cardiac management. Of note, the patient is scheduled to meet with Dr. Rivera in the outpatient setting next month. He had previously been seen by Dr. De Leon. The patient was in his usual state of health until he presented to his primary care physician's office yesterday and was noted to be in atrial fibrillation with a rapid ventricular response. He was sent to the emergency room for further care. The patient specifically denied palpitations and exercise intolerance. Does carry history of paroxysmal atrial fibrillation and has been on amiodarone on 2 separate occasions, once in May 2012, and again in February 2017. The patient discontinued that medication on his own accord. 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. The patient has never known of a cardiac event. He is able to carry on activity of daily life without exertional chest pain or limiting dyspnea. He further denies syncope, presyncope, PND, orthopnea, lower extremity edema, or claudication. Currently, the patient is resting comfortably in bed without complaints. He is agreeable to start amiodarone therapy. PAST MEDICAL HISTORY: 1. Paroxysmal atrial fibrillation. 2. Hypertrophic obstructive cardiomyopathy -- mean gradient of 10 mmHg on echocardiogram in February 2017. 3. Hypertension. 4. Hypercholesterolemia. 5. COPD. 6. Diabetes mellitus. 7. Hypothyroidism. 8. BPH. 9. Osteoporosis. 10. Glaucoma. 11. History of lung carcinoma -- status post left lower lobectomy in 2012. 12. Ulcerative colitis. 13. History of colonic carcinoma. 14. Colectomy with ileostomy -- 36 years ago. MEDICATIONS: 1. Diltiazem drip. 2. Xarelto 50 mg daily. 3. Proscar 5 mg daily. 4. Flomax 0.4 mg daily. 5. Synthroid 0.05 mg daily. 6. Multivitamin daily. ALLERGIES: None. SOCIAL HISTORY: The patient is and lives with his . He is retired. Does not use tobacco or alcohol. FAMILY HISTORY: Noncontributory. REVIEW OF SYSTEMS: A 10-point review of systems was negative except for that described above. PHYSICAL EXAMINATION: GENERAL: This is a well-developed, well-nourished, white male lying supine in bed without complaints. VITAL SIGNS: Blood pressure is 106/70 with an irregular pulse of 90. Respiration rate is 20. The patient is afebrile at 36.4 degree Celsius. Saturations 93% on room air. HEENT: Negative. NECK: Supple with full carotid upstrokes. There is no carotid bruits. Jugular venous pressure is flat at 90 degrees. There is no thyromegaly. CARDIOVASCULAR: Reveals an irregularly irregular rhythm with distant heart sounds. No obvious murmurs. No S3. LUNGS: Clear without rales, rhonchi, or wheezes. ABDOMEN: Soft and nontender without bruits. Ileostomy noted in the right lower quadrant. EXTREMITIES: Note intact radial artery pulse bilaterally. There is no peripheral edema. DATA: CBC notes hemoglobin 15.2, hematocrit 43.7, white count 6.5, and platelet count 129,000. Electrolytes note a sodium of 137, potassium 3.9, chloride 106, bicarbonate 26, BUN 17, creatinine 1.17, glucose 207. Point of care troponin in the Emergency Room was mildly elevated at 0.06 with a followup value from the laboratory normal at 0.044. EKG notes atrial fibrillation with a rapid ventricular response. 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 ST and T-wave abnormalities noted in the anterolateral leads. Chest x-ray notes cardiomegaly with no acute changes. Postoperative changes are seen on the left. IMPRESSION: Mr. Benjamin was admitted yesterday with asymptomatic atrial fibrillation with a rapid ventricular response. As described above, we will initiate amiodarone at 200 mg 4 times daily while hospitalized. He can be discharged on 200 mg twice daily until seen in the outpatient arena. I agree with continuation of Xarelto. I have discussed initiation of low-dose digoxin hoping to get him off the diltiazem drip. PLAN: 1. Start amiodarone 200 mg q.i.d. 2. Agree with intravenous followed by oral digoxin. 3. Wean diltiazem drip as able. 4. Continue Xarelto. 5. Further recommendations depending on his clinical course.
[2017-10-18] MEDS ORDERED: [UNRECOGNIZED DRUG - REMARK] ONE (12:00)
--- NOTE | 2017-10-18 13:00 | Pharmacy Progress Note ---
Glycemic Control Intl Consult Date of Service Oct 18, 2017. Scope Glycemic Pharmacist consulted by Dr Chen on 10/18/17 for glycemic control and to write orders per [facility] inpatient glycemic control protocol Objective Weight (Kilograms): 88.800 Accuchecks BSG (last 24hrs): Test 10/17/17 15:25 10/18/17 02:49 10/18/17 06:30 10/18/17 06:59 Random Glucose 269 mg/dl (70-99) 207 mg/dl (70-99) Bedside Glucose 230 mg/dl (70-99) 208 mg/dl (70-99) Laboratory Data (last 24hrs) Test 10/17/17 15:25 10/18/17 06:59 Anion Gap 8.0 mmol/L 5.0 mmol/L BUN/Creatinine Ratio 18.0 14.4 Blood Urea Nitrogen 21 mg/dl 17 mg/dl Creatinine 1.18 mg/dl 1.17 mg/dl Potassium Level 4.1 mmol/L 3.9 mmol/L Sodium Level 135 mmol/L 137 mmol/L White Blood Count 8.46 K/uL 6.50 K/uL Red Blood Count 5.52 M/uL 5.26 M/uL Hemoglobin 16.0 g/dL 15.2 g/dL Hematocrit 45.7 % 43.7 % Mean Corpuscular Volume 82.8 fL 83.1 fL Mean Corpuscular Hemoglobin 29.0 pg 28.9 pg Mean Corpuscular Hemoglobin Concent 35.0 g/dl 34.8 g/dl Platelet Count 156 K/uL 129 K/uL Mean Platelet Volume 12.8 fL 11.8 fL Neutrophils (%) (Auto) 78.9 % 72.4 % Lymphocytes (%) (Auto) 8.9 % 11.7 % Monocytes (%) (Auto) 8.2 % 10.2 % Eosinophils (%) (Auto) 2.7 % 4.0 % Basophils (%) (Auto) 0.8 % 0.9 % Neutrophils # (Auto) 6.68 K/uL 4.71 K/uL Lymphocytes # (Auto) 0.75 K/uL 0.76 K/uL Monocytes # (Auto) 0.69 K/uL 0.66 K/uL Eosinophils # (Auto) 0.23 K/uL 0.26 K/uL Basophils # (Auto) 0.07 K/uL 0.06 K/uL Hemoglobin A1c 8.8 % HbA1c Test 10/18/17 06:59 Hemoglobin A1c 8.8 % (4.5-5.6) H Recent Pertinent Medications Outpatient Anti-diabetic Regimen: * Lantus 40 units SQ BID * Humalog 38 units SQ BIDM Assessment & Plan ASSESSMENT: * 87yo T2DM male with adequate degree of outpatient per recent A1c. Goal A1c slightly elevated d/t age and co-morbidities. * Pt with sustained hyperglycemia over the past 24hrs secondary to basal & prandial insulin not ordered on admission. * Pt is tolerating PO intake. * Will continue regimen similar to outpatient insulin doses and titrate based on BSG trends. PLAN FOR INPATIENT GLYCEMIC CONTROL: * Basal insulin * Lantus 40 units SQ BID * Will give decreased dose of 10-30 units per scale if BSG < 180 mg/dl. Pt without significant stressors or risk factors for insulin resistance and receiving controlled CHO inpatient diet. It is possible that reduced outpatient basal insulin dosing will be needed. * Bolus insulin * NovoLog per scale ACHS or Q6hrs while NPO * Goal Range: Low 120 mg/dL - High 160 mg/dL * Correction Factor: 20 mg/dL/unit * Nutritional / Prandial insulin per carb ratio of 1 unit per 5 grams CHO consumed * Please note that the plan above was derived based on current level of insulin resistance and hospital stress. These recommendations are appropriate for inpatient admission only. Plan of care upon discharge will need to be reassessed to avoid potential outpatient hypo/hyperglycemia. Thank you.
[2017-10-18] MEDS: AMIODARONE 200 MG TAB PO SCH ×2 (16:32→20:56)
[2017-10-18] MEDS: RIVAROXABAN TAB 15 MG TAB PO SCH (16:33)
[2017-10-18] MEDS ORDERED: INSULIN GLARGINE SOLOSTAR 100 UNITS/ML 3 ML PEN SC SCH ×2 (17:15→21:00)
[2017-10-19 03:20] VITALS: BP 122/90; PULSE 113; TEMP 36.6; O2SAT 94
[2017-10-19] MEDS: INSULIN ASPART 100 UNITS/ML 3 ML PEN SC SCH ×6 (04:00→21:00)
[2017-10-19] MEDS: LEVOTHYROXINE 50 MCG TAB PO SCH (05:49)
[2017-10-19 06:00] LABS: BASO ABS # 0.06 K/uL (0-0.2); EOS % 3.2 %; EOS ABS # 0.19 K/uL (0-0.5); HEMATOCRIT 47.2 % (42-52); HEMOGLOBIN 16.3 g/dL (14.0-18.0); IG# 0.05 K/uL (0.00-0.02); LYMPH % 12.4 %; LYMPH ABS # 0.75 K/uL (1.2-3.4); MEAN CORPUSCULAR HEMOGLOBIN 28.6 pg (25-34); MEAN CORPUSCULAR HGB CONC 34.5 g/dl (32-36); MEAN PLATELET VOLUME 12.7 fL (7.4-10.4); MONO % 9.6 %; MONO ABS # 0.58 K/uL (0.11-0.59); PLATELET COUNT 152 K/uL (130-400); RED CELL DISTRIBUTION WIDTH CV 14.7 % (11.5-14.5); RED CELL DISTRIBUTION WIDTH SD 44.1 fL (36.4-46.3); WHITE BLOOD COUNT 6.03 K/uL (4.8-10.8)
--- NOTE | 2017-10-19 06:53 | Family Medicine Progress Note ---
Progress Note Date of Service Oct 19, 2017. Subjective Pt evaluation today including: conversation w/ patient, physical exam, chart review, lab review, conversation w/ healthcare network consultant Pain: none Voiding: no voiding problems, no incontinence Feeling well this AM No complaints No nursing concerns The patient has been in Afib RVR since late yesterday afternoon; has been 130- 140 throughtout the night No palpitations, no chest pain, pre-syncope, syncope, orthopnea or lower extremity swelling Good appetite, intake and voiding. Additional Comments: A 10 point review of systems was negative unless stated above. Medications Current Inpatient Medications Medications (Trade) Dose Ordered Sig/Malik Route Start Time Stop Time Status Last Admin Dose Admin Glucose (Glucose 40% Gel) 15-30 GRAMS 15 GRAMS... UD PRN PO 10/17/17 17:30 11/16/17 17:29 Glucose (Glucose Chew Tab) 4-8 Tablets 4 Tabl... UD PRN PO 10/17/17 17:30 11/16/17 17:29 Dextrose (Dextrose 50% 50ML Syringe) 25-50ML OF 50% DW IV FOR... UD PRN IV 10/17/17 17:30 11/16/17 17:29 Glucagon (Glucagon Inj) 1 mg UD PRN SQ 10/17/17 17:30 11/16/17 17:29 Albuterol (Ventolin Hfa Inhaler) 2 puffs Q4H PRN INH 10/18/17 01:30 11/17/17 01:29 Finasteride (Proscar Tab) 5 mg DAILY PO 10/18/17 09:00 11/17/17 08:59 10/19/17 07:28 5 MG Levothyroxine Sodium (Synthroid Tab) 50 mcg DAILYBB PO 10/18/17 06:00 11/17/17 05:59 10/19/17 05:49 50 MCG Rivaroxaban (Xarelto Tab) 15 mg QDD PO 10/18/17 16:45 11/17/17 16:44 10/18/17 16:33 15 MG Tamsulosin HCl (Flomax Cap) 0.4 mg DAILY PO 10/18/17 09:00 11/17/17 08:59 10/19/17 07:28 0.4 MG Miscellaneous Information (Consult Glycemic Management Pharmacy) 1 ea UD PRN N/A 10/18/17 02:20 11/17/17 02:19 Insulin Aspart (novoLOG ASPART) SLIDING SCALE ACHS SC 10/18/17 02:30 11/17/17 02:29 10/19/17 08:05 11 UNITS Digoxin (Lanoxin Tab) 0.125 mg DAILY@16 PO 10/19/17 08:00 11/18/17 07:59 10/19/17 07:28 0.125 MG Amiodarone HCl (Cordarone Tab) 200 mg QID PO 10/18/17 16:00 11/17/17 15:59 Future Hold 10/19/17 07:28 200 MG Insulin Glargine (Lantus Solostar Pen) 40 units DAILY SC 10/19/17 09:00 11/18/17 08:59 10/19/17 08:06 40 UNITS Amiodarone HCL/ Dextrose 200 ml @ 33.3 mls/hr Q6H1M IV 10/19/17 09:55 10/19/17 15:55 10/19/17 10:09 33.3 MLS/HR Amiodarone HCL/ Dextrose 200 ml @ 16.7 mls/hr [id number] IV 10/19/17 15:55 11/18/17 15:54 Objective Vital Signs Date Time Temp Pulse Resp B/P (MAP) Pulse Ox O2 Delivery O2 Flow Rate FiO2 10/19/17 08:06 36.5 112 18 131/65 (87) 96 10/19/17 08:00 Room Air 10/19/17 07:28 113 10/19/17 04:00 Room Air 10/19/17 03:20 36.6 113 22 122/90 (101) 94 Room Air 10/19/17 00:00 Room Air 10/18/17 23:41 36.4 114 18 109/76 (87) 94 Room Air 10/18/17 20:00 Room Air 10/18/17 19:28 36.6 76 18 123/64 (83) 98 10/18/17 16:00 Room Air 10/18/17 15:39 36.6 101 18 127/66 (86) 96 Room Air 10/18/17 12:00 Room Air 10/18/17 11:16 36.4 76 20 107/65 (79) 95 Room Air Physical Exam General Appearance: WD/WN, no apparent distress Eyes: normal inspection, EOMI ENT: hearing grossly normal, pharynx normal Neck: supple, no adenopathy, no JVD Respiratory/Chest: lungs clear, no respiratory distress Cardiovascular: no JVD, no murmur, + tachycardia, + irregularly irregular Abdomen: normal bowel sounds, non tender, soft Extremities: non-tender, no pedal edema, + pertinent finding (right leg swollen > left leg chronically) Neurologic/Psychiatric: alert, normal mood/affect, oriented x 3 Skin: normal color, warm/dry, no rash Lymphatic: no adenopathy Laboratory Results Last 24 Hours Test 10/18/17 16:27 10/18/17 20:54 10/19/17 00:16 10/19/17 05:06 Bedside Glucose 91 mg/dl 108 mg/dl 75 mg/dl 97 mg/dl Test 10/19/17 05:39 10/19/17 05:40 10/19/17 06:46 Sodium Level 138 mmol/L Potassium Level 4.1 mmol/L Chloride Level 109 mmol/L Carbon Dioxide Level 25 mmol/L Anion Gap 5.0 mmol/L Blood Urea Nitrogen 13 mg/dl Creatinine 1.06 mg/dl Est Creatinine Clear Calc Drug Dose 55.7 ml/min Estimated GFR () 73.3 Estimated GFR (Non- 63.2 BUN/Creatinine Ratio 12.5 Random Glucose 116 mg/dl Calcium Level 8.3 mg/dl Magnesium Level 1.9 mg/dl White Blood Count 6.03 K/uL Red Blood Count 5.69 M/uL Hemoglobin 16.3 g/dL Hematocrit 47.2 % Mean Corpuscular Volume 83.0 fL Mean Corpuscular Hemoglobin 28.6 pg Mean Corpuscular Hemoglobin Concent 34.5 g/dl Platelet Count 152 K/uL Mean Platelet Volume 12.7 fL Neutrophils (%) (Auto) 73.0 % Lymphocytes (%) (Auto) 12.4 % Monocytes (%) (Auto) 9.6 % Eosinophils (%) (Auto) 3.2 % Basophils (%) (Auto) 1.0 % Neutrophils # (Auto) 4.40 K/uL Lymphocytes # (Auto) 0.75 K/uL Monocytes # (Auto) 0.58 K/uL Eosinophils # (Auto) 0.19 K/uL Basophils # (Auto) 0.06 K/uL RDW Standard Deviation 44.1 fL RDW Coefficient of Variation 14.7 % Immature Granulocyte % (Auto) 0.8 % Immature Granulocyte # (Auto) 0.05 K/uL Bedside Glucose 131 mg/dl Assessment and Plan 87 year old male with PMHx of Afib RVR, hypothyroidism, T1DM and BPH, presenting with asymptomatic Afib with RVR. Had initial control on Diltiazem drip but has not responded to PO amiodarone and digoxin regimen. Our plan is as follows Atrial Fibrillation with RVR - Cardiology consulted; recommendations appreciated. - Initial troponin elevation likely supply/demand mismatch - Achieve initial rate control on diltiazem drip - Has not resolved to PO Amiodarone regimen -->START Amiodarone infusion today and monitor. - Continue daily PO digoxin - Continue Xarelto Hypothyroidism - Continue Synthroid - TSH WNL Asthma - Continue Albuterol inhaler PRN - Will start Duonebs PRN today as slightly wheezy and not responsive to inhalers BPH - Continue Finasteride and Tamsulosin Type 1 Diabetes Mellitus - Continue Insulin SSI - BSG well controlled DVT Prophylaxis - SCD Knee, STEPHY Hose - On Xarelto Code Status - Level I Full Code Disposition - Continue Telemetry monitoring - OT and PT evaluations Resident Physician Supervision Note: I was present with Dr. Estrella during the history and exam. I discussed the case with the resident and agree with the findings and plan as documented in the note. Any exceptions or clarifications are listed here: The patient is without complaints, reading his newspaper in the bed side chair. Unfortunately. his HR remains elevated. Discussed the case with cardiology and reviewed the above with Dr. Estrella. PRIMARY IMPRESSION 1) AF with RVR PLAN 1) Start IV amiodarone. 2) Continue PO digoxin. 3) Continue Xarelto. 4) Monitor HR. Documented By: Gelacio Alvarez Continued [facility] stay due to: abnormal vital signs Discharge planning: home
[2017-10-19] MEDS: TAMSULOSIN HCL 0.4 MG CAP PO SCH (07:28)
[2017-10-19] MEDS: FINASTERIDE 5 MG TAB PO SCH (07:28)
[2017-10-19] MEDS: AMIODARONE 200 MG TAB PO SCH (07:28)
[2017-10-19 07:39] LABS: CALCIUM 8.3 mg/dl (8.5-10.1); CREATININE 1.06 mg/dl (0.60-1.40); POTASSIUM 4.1 mmol/L (3.5-5.1)
[2017-10-19] MEDS ORDERED: DIGOXIN 0.125 MG TAB PO SCH (08:00)
[2017-10-19 08:06] VITALS: BP 131/65; PULSE 112; TEMP 36.5; O2SAT 96
[2017-10-19] MEDS ORDERED: INSULIN GLARGINE SOLOSTAR 100 UNITS/ML 3 ML PEN SC SCH (09:00)
[2017-10-19] MEDS ORDERED: AMIODARONE IV BOLUS / DRIP IV STA (09:24)
[2017-10-19] MEDS ORDERED: 0.2 MICRON FILTER SET 1 EA IV SCH (09:45)
[2017-10-19] MEDS ORDERED: AMIODARONE / D5W 100 ML PHARMACY PREPARED IV SCH ×2 (09:45)
[2017-10-19] MEDS ORDERED: AMIODARONE / D5W 200 ML IV SCH ×2 (09:55→15:55)
--- NOTE | 2017-10-19 11:06 | Pharmacy Progress Note ---
Pharmacy Glycemic Short Note 2 Date of Service Oct 19, 2017. OUTPATIENT ANTIDIABETIC REGIMEN: * Lantus 40 units SQ BID * Humalog 38 units SQ BIDM Item Value Date Time Random Glucose 207 mg/dl H 10/18/17 0659 Bedside Glucose 91 mg/dl 10/18/17 1627 Bedside Glucose 108 mg/dl H 10/18/17 2054 Bedside Glucose 75 mg/dl 10/19/17 0016 Bedside Glucose 97 mg/dl 10/19/17 0506 Bedside Glucose 131 mg/dl H 10/19/17 0646 ASSESSMENT: * 87yo T2DM male with adequate degree of outpatient per recent A1c. Goal A1c slightly elevated d/t age and co-morbidities. * 10/18/17: Pt with sustained hyperglycemia over the past 24hrs secondary to basal & prandial insulin not ordered on admission. Reduced outpatient SQ basal bolus insulin regimen initiated as Pt without significant stressors or risk factors for insulin resistance and receiving controlled CHO inpatient diet. Outpatient insulin doses seemed too high for inpatient use based on BSG trends when not receiving any insulin on 10/17/17. * 10/19/17: Pt has received 72 units of insulin over the past 24hrs * 50 units of basal insulin * 22 units of prandial/correctional * AM fasting BSG is in goal range at 131 mg/dl but overnight BSGs (@ 0000 & 0400) were below goal range at 75, 97. * Will reduce basal insulin dosing slightly tp prevent hypo. * No changes needed to NovoLog parameters. PLAN FOR INPATIENT GLYCEMIC CONTROL: * Basal insulin: decrease dose * Lantus 40 units SQ daily * Bolus insulin * NovoLog per scale ACHS or Q6hrs while NPO * Goal Range: Low 120 mg/dL - High 160 mg/dL * Correction Factor: 20 mg/dL/unit * Nutritional / Prandial insulin per carb ratio of 1 unit per 5 grams CHO consumed
[2017-10-19 11:41] VITALS: BP 99/64; PULSE 54; TEMP 36.4; O2SAT 98
--- NOTE | 2017-10-19 13:34 | CARDIOLOGY PROGRESS NOTE ---
DATE: 10/19/2017 SUBJECTIVE: Mr. Benjamin is resting comfortably in the bedside chair without complaints of chest pain, dyspnea, or palpitations. OBJECTIVE: VITAL SIGNS: Blood pressure is 130/65 with a regular pulse of 60. Respiratory rate is 18. The patient is afebrile at 36.4 degrees Celsius. Saturation is 90% on room air. NECK: Supple with full carotid upstrokes. There are no carotid bruits. Jugular venous pressure is flat at 90 degrees. No thyromegaly. CARDIOVASCULAR: Reveals a regular rhythm with distant heart sounds. No obvious murmurs. LUNGS: Clear without rales, rhonchi or wheeze. ABDOMEN: Soft and nontender without bruits. Ileostomy noted in the right lower quadrant. EXTREMITIES: Note intact radial pulse bilaterally. There is no peripheral edema. LABORATORY DATA: CBC notes a hemoglobin of 16.3, hematocrit 47.2, white count 6.03, and platelet count of 152,000. Electrolytes note a sodium of 138, potassium 4.0, chloride 109, bicarbonate 25, BUN 13, creatinine 1.06, and glucose 116. video surveillance technician noted conversion from atrial fibrillation to sinus bradycardia. A 3-second pause was identified at the time of conversion. IMPRESSION AND PLAN: 1. Paroxysmal atrial fibrillation - the patient has converted to sinus rhythm on intravenous amiodarone. As he demonstrated some bradycardia and a pause, would discontinue amiodarone drip and resume oral dosing at 200 mg q.a.m. tomorrow. Discussed with Dr. Estrella. 2. Hypertrophic obstructive cardiomyopathy -- mean gradient of 10 mmHg on an echocardiogram in February 2017. 3. Hypertension -- controlled. 4. Hypercholesterolemia. 5. Diabetes mellitus.
[2017-10-19] MEDS ORDERED: NURSING VERBAL MED ORDER ONE (14:45)
[2017-10-19 15:11] VITALS: BP 123/74; PULSE 66; TEMP 36.4; O2SAT 95
[2017-10-19] MEDS: RIVAROXABAN TAB 15 MG TAB PO SCH (17:50)
[2017-10-19 19:19] VITALS: BP 116/73; PULSE 63; TEMP 36.8; O2SAT 95
[2017-10-19 23:52] VITALS: BP 117/78; PULSE 64; TEMP 37; O2SAT 94
[2017-10-20 04:02] VITALS: BP 97/57; PULSE 78; TEMP 36.4; O2SAT 95
[2017-10-20 05:57] LABS: BASO % 0.6 %; BASO ABS # 0.04 K/uL (0-0.2); EOS % 3.5 %; EOS ABS # 0.22 K/uL (0-0.5); HEMATOCRIT 44.4 % (42-52); HEMOGLOBIN 14.4 g/dL (14.0-18.0); IG# 0.03 K/uL (0.00-0.02); LYMPH % 9.8 %; LYMPH ABS # 0.61 K/uL (1.2-3.4); MEAN CELL VOLUME 84.9 fL (80-100); MEAN CORPUSCULAR HEMOGLOBIN 27.5 pg (25-34); MEAN CORPUSCULAR HGB CONC 32.4 g/dl (32-36); MEAN PLATELET VOLUME 12.9 fL (7.4-10.4); MONO % 8.5 %; MONO ABS # 0.53 K/uL (0.11-0.59); NEUT % 77.1 %; NEUT ABS # 4.78 K/uL (1.4-6.5); PLATELET COUNT 150 K/uL (130-400); WHITE BLOOD COUNT 6.21 K/uL (4.8-10.8)
[2017-10-20] MEDS: LEVOTHYROXINE 50 MCG TAB PO SCH (06:15)
[2017-10-20 06:32] LABS: CALCIUM 8.4 mg/dl (8.5-10.1); CREATININE 1.12 mg/dl (0.60-1.40)
[2017-10-20 06:59] VITALS: BP 125/75; PULSE 65; TEMP 36.4; O2SAT 94
[2017-10-20 08:00] VITALS: O2SAT 94
[2017-10-20] MEDS: FINASTERIDE 5 MG TAB PO SCH (08:18)
[2017-10-20] MEDS: TAMSULOSIN HCL 0.4 MG CAP PO SCH (08:18)
[2017-10-20] MEDS: INSULIN ASPART 100 UNITS/ML 3 ML PEN SC SCH ×2 (08:20→12:21)
--- NOTE | 2017-10-20 08:48 | Clinical Documentation Query ---
Dr. FISHER [place] : CLINICAL DOCUMENTATION QUERY Patient is an 87 year old male admitted for treatment of atrial fibrillation with RVR. Troponin elevation noted to be "likely supply/demand mismatch". He has been treated with Cardizem, Amiodarone, Digoxin, and Xarelto. As appropriate, consider documentation as suggested below as this impacts accurate DRG assignment. Thank you. In your clinical opinion is this patient being managed for: ( ) Myocardial demand ischemia ( ) Not Agree ( ) Other explanation of clinical findings (Please Explain) ( ) Unable to determine (Please Define) ( ) Need to Discuss The medical record reflects the following clinical findings, treatment, and risk factors. Clinical Indicators: As above Treatment: As above Risk Factors: Afib, HOCM, hypertension, COPD, DM Please clarify and document your clinical opinion in the progress notes and discharge summary. Terms such as "probable", "suspected", "likely", "questionable", "possible", or "still to be ruled out" are acceptable. IF IN AGREEMENT, YOU MUST DOCUMENT ABOVE DIAGNOSTIC STATEMENT IN DAILY PROGRESS NOTES AND DISCHARGE SUMMARY. This document is not part of the patient's record. Thank You, Gerson Garcia, RN [phone]
[2017-10-20] MEDS ORDERED: INSULIN GLARGINE SOLOSTAR 100 UNITS/ML 3 ML PEN SC SCH ×2 (09:00→21:00)
[2017-10-20] MEDS ORDERED: AMIODARONE 200 MG TAB PO SCH (09:00)
--- NOTE | 2017-10-20 09:02 | Family Medicine Progress Note ---
Progress Note Date of Service Oct 20, 2017. Medications Current Inpatient Medications Medications (Trade) Dose Ordered Sig/Malik Route Start Time Stop Time Status Last Admin Dose Admin Glucose (Glucose 40% Gel) 15-30 GRAMS 15 GRAMS... UD PRN PO 10/17/17 17:30 11/16/17 17:29 Glucose (Glucose Chew Tab) 4-8 Tablets 4 Tabl... UD PRN PO 10/17/17 17:30 11/16/17 17:29 Dextrose (Dextrose 50% 50ML Syringe) 25-50ML OF 50% DW IV FOR... UD PRN IV 10/17/17 17:30 11/16/17 17:29 Glucagon (Glucagon Inj) 1 mg UD PRN SQ 10/17/17 17:30 11/16/17 17:29 Albuterol (Ventolin Hfa Inhaler) 2 puffs Q4H PRN INH 10/18/17 01:30 11/17/17 01:29 Finasteride (Proscar Tab) 5 mg DAILY PO 10/18/17 09:00 11/17/17 08:59 10/20/17 08:18 5 MG Levothyroxine Sodium (Synthroid Tab) 50 mcg DAILYBB PO 10/18/17 06:00 11/17/17 05:59 10/20/17 06:15 50 MCG Rivaroxaban (Xarelto Tab) 15 mg QDD PO 10/18/17 16:45 11/17/17 16:44 10/19/17 17:50 15 MG Tamsulosin HCl (Flomax Cap) 0.4 mg DAILY PO 10/18/17 09:00 11/17/17 08:59 10/20/17 08:18 0.4 MG Miscellaneous Information (Consult Glycemic Management Pharmacy) 1 ea UD PRN N/A 10/18/17 02:20 11/17/17 02:19 Insulin Aspart (novoLOG ASPART) SLIDING SCALE ACHS SC 10/18/17 02:30 11/17/17 02:29 10/20/17 08:20 6 UNITS Digoxin (Lanoxin Tab) 0.125 mg DAILY@16 PO 10/19/17 08:00 11/18/17 07:59 10/19/17 07:28 0.125 MG Amiodarone HCl (Cordarone Tab) 200 mg DAILY PO 10/20/17 09:00 11/17/17 15:59 10/20/17 08:17 200 MG Insulin Glargine (Lantus Solostar Pen) 15 units BID SC 10/20/17 09:00 11/19/17 08:59 10/20/17 08:34 15 UNITS Objective Vital Signs Date Time Temp Pulse Resp B/P (MAP) Pulse Ox O2 Delivery O2 Flow Rate FiO2 10/20/17 06:59 36.4 65 18 125/75 (92) 94 Room Air 10/20/17 04:02 36.4 78 18 97/57 (70) 95 10/20/17 04:00 Room Air 10/20/17 00:00 Room Air 10/19/17 23:52 37.0 64 18 117/78 (91) 94 10/19/17 20:00 Room Air 10/19/17 19:19 36.8 63 18 116/73 (87) 95 Room Air 10/19/17 16:00 Room Air 10/19/17 15:11 36.4 66 20 123/74 (90) 95 Room Air 10/19/17 12:00 Room Air 10/19/17 11:41 36.4 54 18 99/64 (76) 98 Room Air
--- NOTE | 2017-10-20 10:49 | Pharmacy Progress Note ---
Pharmacy Glycemic Short Note 2 Date of Service Oct 20, 2017. OUTPATIENT ANTIDIABETIC REGIMEN: * Lantus 40 units SQ BID * Humalog 38 units SQ BIDM ASSESSMENT: * 87yo T2DM male with adequate degree of outpatient control per recent A1c. 10/19/17: * Pt has received 72 units of insulin over the past 24hrs * 50 units of basal insulin * 22 units of prandial/correctional * AM fasting BSG is in goal range at 131 mg/dl but overnight BSGs (@ 0000 & 0400 ) were below goal range at 75, 97. * Will reduce basal insulin dosing slightly tp prevent hypo. * No changes needed to NovoLog parameters. 10/21/47: * Patient experienced hypoglycemia despite decrease in basal insulin yesterday; BSG 52 mg/dL @ 1635 and 55 mg/dL @ 0343. Patient received no bolus insulin with dinner or at HS, therefore hypoglycemia was due to basal insulin. * Fasting BSG today is above goal but this is likely due to BSG being drawn after patient was treated for hypoglycemia. Decrease basal insulin 25% ( anticipate needing ~ 30 units per day) * Post-prandial BSGs are at or below goal - CF/CR was loosened last evening, will continue same for now PLAN FOR INPATIENT GLYCEMIC CONTROL: * Basal insulin: decrease * Lantus 15 units SQ this AM. Lantus 10-15 units SQ qPM * Lantus 15 units SQ BID starting 10/21. * Bolus insulin: * NovoLog per scale ACHS or Q6hrs while NPO * Goal Range: Low 120 mg/dL - High 160 mg/dL * Correction Factor: 20 mg/dL/unit * Nutritional / Prandial insulin per carb ratio of 1 unit per 10 grams CHO consumed DISCHARGE RECOMMENDATIONS: * A1c of 8.8% is near goal based on age and co-morbidities * Recommend continuing current outpatient regimen on discharge as long as patient does not experience frequent hypoglycemia at home (outpatient dose is significantly greater than inpatient needs)
[2017-10-20 10:59] VITALS: Ht 175.3 cm; Wt 90.2 kg
[2017-10-20 11:11] VITALS: BP 113/70; PULSE 59; TEMP 36.8; O2SAT 95
[2017-10-20 12:00] VITALS: O2SAT 94
[2017-10-20] MEDS ORDERED: CRD200 PO (12:47)
--- NOTE | 2017-10-20 12:55 | CARDIOLOGY PROGRESS NOTE ---
DATE: 10/20/2017 SUBJECTIVE: Mr. Benjamin is resting comfortably in bedside chair without complaints of chest pain, dyspnea, palpitations, syncope, or presyncope. He is anxious for hospital discharge. OBJECTIVE: VITAL SIGNS: Blood pressure 113/70 with a regular pulse of 60. Respiratory rate is 20. The patient is afebrile at 36.8 degrees centigrade. Saturations 95% on room air. NECK: Supple with full carotid upstrokes. There is no carotid bruits. Jugular venous pressure is flat at 90 degrees. There is no thyromegaly. CARDIOVASCULAR: Reveals a regular rhythm with normal S1 and S2. Heart sounds are distant. No S3, murmurs. LUNGS: Clear without rales, rhonchi, or wheezes. ABDOMEN: Soft, nontender without bruits. Ileostomy noted in the right lower quadrant. EXTREMITIES: Show intact radial artery pulse bilaterally. There is no peripheral edema. DATA: CBC notes hemoglobin 14.4, hematocrit 44.4, white count 6.2, platelet count 150,000. Electrolytes show a sodium of 137, potassium 4.0, chloride 107, bicarbonate 24, BUN 14, creatinine 1.12, glucose 202. emissions testing and repair technician notes sinus rhythm. IMPRESSION AND PLAN: 1. Paroxysmal atrial fibrillation -- patient has converted to sinus rhythm with amiodarone. Now on oral dosing at 200 mg daily. We would likely discontinue digoxin as this has a small therapeutic window and could represent problems in combination with amiodarone and his advanced age. 2. Hypertrophic obstructive cardiomyopathy -- noted on echocardiogram in February 2017. Low gradient identified. 3. Hypertension -- controlled. 4. Hypercholesterolemia. 5. Diabetes mellitus. 6. Disposition -- stable for hospital discharge. He has an outpatient appointment with Dr. Rivera scheduled.
--- NOTE | 2017-10-20 13:09 | Discharge Instructions ---
Discharge Instructions Date of Service Oct 20, 2017. Admission Reason for Admission: Atrial Fibrillation With Rapid Ventricular Respons Discharge Discharge Diagnosis / Problem: atrial fibrillation now improved Discharge Goals Goal(s): Diagnostic testing, Therapeutic intervention Activity Recommendations Activity Limitations: resume your previous activity . Instructions / Follow-Up Instructions / Follow-Up atrial fibrillation -your atrial fibrillation was racing uncontrolled - fortunately the amiodarone has brought things in line nicely (currently you're actually even in a regular, sinus rhythm - although frequently people will move in and out of regular rhythm to afib -- the most important thing is that your rates are under control) -for now we'll have you on amiodarone 200mg once a day - cardiology will follow up with you and adjust meds accordingly - obviously if your symptoms come back, we'll need you to be seen right away. Current Hospital Diet Patient's current hospital diet: AHA Diet (Heart Healthy), Low Sodium Diet (2gm Na), Diabetes Type 2 Diet Discharge Diet Recommended Diet: Low Sodium Diet (2gm Na), Diabetes Type 2 Diet Pending Studies Studies pending at discharge: no Laboratory Results Hemoglobin A1c Test 10/18/17 06:59 Range/Units Estimated Average Glucose 206 mg/dl Hemoglobin A1c 8.8 H 4.5-5.6 % Work Instructions Return To Work: 2 days Medical Emergencies . Who to Call and When: Medical Emergencies: If at any time you feel your situation is an emergency, please call 911 immediately. . Non-Emergent Contact Non-Emergency issues call your: Primary Care Provider, Warning Analyst . . "Provider Documentation" section prepared by Mark Ruff. .
[2017-10-20 14:00] VITALS: BP 113/70; PULSE 59; TEMP 36.8; O2SAT 94
--- NOTE | 2017-10-20 16:15 | Discharge Summary ---
Discharge Summary Date of Service Oct 20, 2017. Discharge Summary Admission Date: Oct 17, 2017 at 17:36 Discharge Date: Oct 20, 2017 Discharge Disposition: Home Principal Diagnosis: Atrial Fibrillation Problems/Secondary Diagnoses: (1) Hypertrophic cardiomyopathy Status: Chronic Immunizations: Have You Had Influenza Vaccine: Yes Influenza Vaccine Date: Jul 26, 2013 History of Tetanus Vaccine?: Unknown History of Pneumococcal: Yes Pneumococcal Date: Jul 26, 2013 History of Hepatitis B Vaccine: No Procedures: SINGLE VIEW CHEST CLINICAL HISTORY: Atypical chest pain. FINDINGS: An AP, portable, upright chest radiograph is compared to study dated 03/31/2017 and correlated with chest CT dated 03/21/2017. The examination is degraded by portable technique and patient rotation. There are calcified mediastinal lymph nodes. The heart is enlarged and there is atherosclerotic calcification of the thoracic aorta. The pulmonary vasculature is noncongested. There is postoperative change involving loss from left-sided pulmonary resection. Pleural fluid at the left lung base is similar to previous and likely on a postoperative basis. The lungs are otherwise clear noting scattered calcified granulomas. No pneumothorax is seen. The skeletal structures are osteopenic. The bony thorax is grossly intact. IMPRESSION: 1. Cardiomegaly with no acute cardiopulmonary abnormality. 2. There is postoperative change from left-sided pulmonary resection with pleural fluid at the left lung base. This is similar to prior studies. Consultations: Cardiology Medication Reconciliation New Medications: Amiodarone HCl (Amiodarone HCl) 200 Mg Tab 200 MG PO DAILY, #30 TAB Continued Medications: Albuterol Hfa (Ventolin Hfa) 200 Puffs/40142 Mcg Aers 2 PUFFS INH Q4H PRN for SOB/Wheezing Bimatoprost (Lumigan) 0.01 % Perla 1 DROP OPB QAM Calcium Carbonate-Vitamin D (Oscal 500/200 D-3) 1 Tab Tab 2 TABS PO DAILY Coenzyme Q10 (Ubidecarenone) (Co Q10) 50 Mg Cap 50 MG PO DAILY, CAP Finasteride (Finasteride) 5 Mg Tab 5 MG PO DAILY Home O2 Therapy (Oxygen) Gas 2 LITERS NA HS, BTL Insulin Glargine (Lantus) 100 Unit/Ml Inj 40 UNITS SC BID, VIAL Insulin Human Lispro (Humalog) 1 Ea Inj 38 UNITS SQ BID Levothyroxine Sodium (Levothyroxine Sodium) 50 Mcg Tab 50 MCG PO DAILY Rivaroxaban (Xarelto) 15 Mg Tab 15 MG PO DAILY, TAB Tamsulosin HCl (Tamsulosin HCl) 0.4 Mg Cap 0.4 MG PO DAILY Discharge Exam Review of Systems: Constitutional: No fever, No chills, No weakness Eyes: No worsening of vision Respiratory: No cough, No shortness of breath Cardiovascular: No chest pain, No edema, No palpitations Abdomen: No pain, No nausea, No vomiting Musculoskeletal: No swelling, No calf pain Genitourinary - Male: No hematuria, No dysuria, No urinary frequency Integumentary: No rash, No itch Hospital Course H&P Mr. Cas Benjamin is an 87-year-old gentleman with known history of atrial fibrillation who presents emergency department at the instruction of his primary care provider. Patient went to see his PCP earlier today for routine follow-up and was found to be in atrial fibrillation with rapid ventricular response. Despite tachycardia patient is completely asymptomatic. He does not endorse any chest pain, palpitation, nausea or vomiting. No other associated symptoms. No sick contacts or recent travel. Patient is on anticoagulation therapy but is not on any rate controlling medication. In the emergency department patient was given bolus of diltiazem and still remains on adrip. Heart rate ranges from 110-125 bpm. Otherwise patient is stable. Course On arrival, patient was tachycardic between 135-145 and mildly hypertensive systolic >140. He arrived on Xarelto from home, however was not on rate control. 1st troponin was .052, increasing to .052. Troponin was attributed demand ischemia. TSH was normal. Patient was started on Diltiazem drip. Cardiology was consulted. Patient was transitioned subsequently to Amiodarone 200 QID and given dose of IV Digoxin .25 mg. He was subsequently placed on PO Digoxin along with Xarelto , but due to lack of response to PO Amiodarone, Amiodarone infusion was started. Patient eventually converted to sinus rhythm during hospital stay. Cardiology discontinued Digoxin as it could represent problems in combination with amiodarone and his advanced age. By discharge, heart rate was controlled and in sinus rhythm. He was discharged with PO Amiodarone and cardiology follow up. Resident Physician Supervision Note: I interviewed and examined the patient. Discussed with Dr. Chen and agree with findings and plan as documented in the note. Any exceptions or clarifications are listed here: None Documented By: Mark Ruff feeling better wants to go home no new complaints feels he'll do well understands dx and plans vitals noted nad breathing unlabored now nsr, d/w cardiology afib RVR w demand ischemia from tachycardia - improved on amio - home as above, outpt PCP and cardiology f/u Total Time Spent: Less than 30 minutes This includes examination of the patient, discharge planning, medication reconciliation, and communication with other providers. Discharge Instructions Please refer to the electronic Patient Visit Report (Discharge Instructions) for additional information. Additional Copies To Olman Latham M.D. Resident Tracking Resident Involvement: Resident Care Provided Care Provided: Adult [facility] Medicine
== END 2017-10-20 15:10 | disposition home or self-care (01) | DRG 309 ==
LOC: C.EDB 14:47 → C.2T 17:36 → ENRESERV 18:05 → C.2T 10-18 06:17
PROVIDERS: ADMIT Internal Medicine; ATTEND Family Medicine
DX: I48.0 Paroxysmal atrial fibrillation (principal); I24.8 Other forms of acute ischemic heart disease; I42.1 Obstructive hypertrophic cardiomyopathy; E10.9 Type 1 diabetes mellitus without complications; E03.9 Hypothyroidism, unspecified; N40.0 Benign prostatic hyperplasia without lower urinary tract symptoms; E78.00 Pure hypercholesterolemia, unspecified; J44.9 Chronic obstructive pulmonary disease, unspecified; I10 Essential (primary) hypertension; Z79.01 Long term (current) use of anticoagulants; Z79.4 Long term (current) use of insulin; Z79.899 Other long term (current) drug therapy; Z87.891 Personal history of nicotine dependence; Z83.3 Family history of diabetes mellitus

== ENCOUNTER 2017-11-17 10:08 | Emergency (ER) | payer BC, OTHER ==
[~2017-11-17] VITALS: Ht 175.3 cm; Wt 85.8 kg
[~2017-11-17 10:08] MED LIST changes: -BTMOPS5 OPB; +CRD200 PO; -FINA5TAB4 PO; +FLM4 PO; +LEVO50TA6 PO; -OMEG10007 PO; +OXGN; +PRS5 PO; -PRVHFAIN INH; +RIVA1.5T PO; -ROSU5TAB19 PO; +VNTHFA/IN INH; -XRL15 PO
[2017-11-17 10:13] VITALS: TEMP 36.7; Ht 175.3 cm; Wt 85.8 kg
[2017-11-17 10:47] LABS: BASO % 0.9 %; BASO ABS # 0.06 K/uL (0-0.2); EOS % 1.6 %; EOS ABS # 0.11 K/uL (0-0.5); HEMATOCRIT 46.6 % (42-52); HEMOGLOBIN 16.8 g/dL (14.0-18.0); IG# 0.02 K/uL (0.00-0.02); LYMPH % 6.6 %; LYMPH ABS # 0.45 K/uL (1.2-3.4); MEAN CELL VOLUME 81.8 fL (80-100); MEAN CORPUSCULAR HEMOGLOBIN 29.5 pg (25-34); MEAN CORPUSCULAR HGB CONC 36.1 g/dl (32-36); MEAN PLATELET VOLUME 11.9 fL (7.4-10.4); MONO % 10.3 %; NEUT % 80.3 %; NEUT ABS # 5.45 K/uL (1.4-6.5); PLATELET COUNT 134 K/uL (130-400); RED CELL DISTRIBUTION WIDTH SD 41.9 fL (36.4-46.3); WHITE BLOOD COUNT 6.79 K/uL (4.8-10.8)
[2017-11-17 10:59] LABS: INR 1.2 (0.9-1.1)
[2017-11-17 11:05] LABS: ALBUMIN 3.4 gm/dl (3.4-5.0); CALCIUM 8.5 mg/dl (8.5-10.1); CREATININE 1.15 mg/dl (0.60-1.40); POTASSIUM 4.1 mmol/L (3.5-5.1)
--- NOTE | 2017-11-17 11:08 | DIAGNOSTIC IMAGING REPORT ---
CHEST ONE VIEW PORTABLE CLINICAL HISTORY: Chest pain. COMPARISON STUDY: Chest CT March 21, 2017 and chest radiograph October 17, 2017. FINDINGS: Postoperative findings are noted with left hemithorax volume loss. No pneumothorax is noted. Elevation of the left hemidiaphragm is unchanged. A small left pleural effusion with left basilar opacity is noted. A calcified right midlung nodule is present. Cardiomediastinal silhouette is stable. There are calcified mediastinal lymph nodes. There is no evidence for pulmonary edema. IMPRESSION: 1. Small left pleural effusion with associated atelectasis. 2. Stable elevation of the left hemidiaphragm status post left lower lobectomy. Electronically signed by: Bib Castanon M.D. 11/17/2017 11:06 AM Dictated Date/Time: 11/17/2017 11:04 AM
[2017-11-17 11:09] LABS: TOTAL PROTEIN 7.1 gm/dl (6.4-8.2)
[2017-11-17 11:16] LABS: CKMB 7.3 ng/ml (0.5-3.6)
[2017-11-17] MEDS ORDERED: OPTIRAY 320 IV PRN (12:45)
--- NOTE | 2017-11-17 13:18 | EMERGENCY ROOM VISIT NOTE ---
History Report prepared by Merlin: John Miller Under the Supervision of: Dr. Gerson Stewart M.D. First contact with patient: 10:26 Chief Complaint: CARDIAC ASSESSMENT Stated Complaint: CHEST PAIN History of Present Illness The patient is a 87 year old male who presents to the Emergency Room with complaints of intermittent left lower chest pain beginning four days ago. He estimates that his pain is present for 3-5 seconds at a time. He also complains of epigastric abdominal pain during his episodes. The patient has a history of transient A-fib for which he was hospitalized last month. He is on Xarelto. He states that he recently changed the timing of taking his Synthroid as well as some of his other medications four days ago (now taking them at night). The patient denies dizziness, fevers, SOB, or black or bloody stool. He was started on Amiodarone about a month ago. He denies recent injury. The patient has a history of left lower lobectomy a few years ago relating to lung cancer. He also has a history of bowel cancer, but is currently considered cancer free. He reports having a rash on his left leg. Source of History: patient Onset: Four days ago Position: chest (left lower) Symptom Intensity: 3-5 seconds at a time Timing: intermittent Associated Symptoms: + abdominal pain (epigastric), No fevers, No melena, No hematochezia Note: Negative: dizziness. Review of Systems See HPI for pertinent positives & negatives. A total of 10 systems reviewed and were otherwise negative. 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 Nurse's notes were reviewed and I agree with. Family History Diabetes mellitus Heart disease Hypertension Social History Smoking Status: Never Smoker Alcohol Use: occasionally Drug Use: none Marital Status: Housing Status: lives with family Occupation Status: retired Current/Historical Medications Scheduled Amiodarone HCl (Amiodarone HCl), 200 MG PO DAILY Bimatoprost (Lumigan), 1 DROP OPB QAM Calcium Carbonate-Vitamin D (Oscal 500/200 D-3), 2 TABS PO DAILY Finasteride (Finasteride), 5 MG PO DAILY Insulin Glargine (Lantus), 40 UNITS SC BID Insulin Human Lispro (Humalog), 38 UNITS SQ BID Levothyroxine Sodium (Levothyroxine Sodium), 50 MCG PO DAILY Rivaroxaban (Xarelto), 15 MG PO DAILY Tamsulosin HCl (Tamsulosin HCl), 0.4 MG PO DAILY Scheduled PRN Albuterol Hfa (Ventolin Hfa), 2 PUFFS INH Q4H PRN for SOB/Wheezing Allergies Coded Allergies: No Known Allergies (Verified , 11/17/17) Physical Exam Vital Signs Date Time Temp Pulse Resp B/P (MAP) Pulse Ox O2 Delivery O2 Flow Rate FiO2 11/17/17 14:32 66 20 154/86 94 11/17/17 13:37 66 11/17/17 13:27 68 16 132/73 97 Room Air 11/17/17 11:23 77 19 124/68 92 Room Air 11/17/17 10:34 Room Air 11/17/17 10:25 87 11/17/17 10:13 36.7 98 18 118/67 95 Room Air Physical Exam General: Non-ill appearing older male in no acute distress. HEENT: Normal cephalic atraumatic. Pupils are equal round and reactive to light. Extraocular movements are intact. Oropharynx is pink with moist mucous membranes. No swelling of the mouth lips or tongue. Neck: Supple with a midline trachea. No meningeal signs or stiffness, no JVD or bruits. No Stridor. Chest: Clear to auscultation bilaterally. No wheezes or rhonchi. No increased work of breathing. Heart: regular rate and rhythm. Abdomen: Soft nontender, nondistended without rebound guarding or rigidity. Multiple surgical scars. No redness or warmth. Extremities: No cyanosis clubbing or edema. No calf tenderness or assymetry Spine/Back. Non tender to palpation. No CVA tenderness Skin: Good turgor without rashes. Neurologic exam: Cranial nerves two through 12 are intact. Motor and sensation are intact and symmetrical throughout. Medical Decision & Procedures ER Provider Diagnostic Interpretation: Radiology results as stated below per my review and radiologist interpretation: CHEST ONE VIEW PORTABLE FINDINGS: Postoperative findings are noted with left hemithorax volume loss. No pneumothorax is noted. Elevation of the left hemidiaphragm is unchanged. A small left pleural effusion with left basilar opacity is noted. A calcified right midlung nodule is present. Cardiomediastinal silhouette is stable. There are calcified mediastinal lymph nodes. There is no evidence for pulmonary edema. IMPRESSION: 1. Small left pleural effusion with associated atelectasis. 2. Stable elevation of the left hemidiaphragm status post left lower lobectomy. Electronically signed by: Bib Castanon M.D. 11/17/2017 11:06 AM Laboratory Results 11/17/17 10:30 Red Blood Count 5.70, Mean Corpuscular Volume 81.8, Mean Corpuscular Hemoglobin 29.5, Mean Corpuscular Hemoglobin Concent 36.1, Mean Platelet Volume 11.9, Neutrophils (%) (Auto) 80.3, Lymphocytes (%) (Auto) 6.6, Monocytes (%) (Auto) 10.3, Eosinophils (%) (Auto) 1.6, Basophils (%) (Auto) 0.9, Neutrophils # (Auto ) 5.45, Lymphocytes # (Auto) 0.45, Monocytes # (Auto) 0.70, Eosinophils # (Auto ) 0.11, Basophils # (Auto) 0.06 11/17/17 10:30 Test 11/17/17 10:30 11/17/17 12:56 White Blood Count 6.79 K/uL (4.8-10.8) Red Blood Count 5.70 M/uL (4.7-6.1) Hemoglobin 16.8 g/dL (14.0-18.0) Hematocrit 46.6 % (42-52) Mean Corpuscular Volume 81.8 fL (80-100) Mean Corpuscular Hemoglobin 29.5 pg (25-34) Mean Corpuscular Hemoglobin Concent 36.1 g/dl (32-36) Platelet Count 134 K/uL (130-400) Mean Platelet Volume 11.9 fL (7.4-10.4) Neutrophils (%) (Auto) 80.3 % Lymphocytes (%) (Auto) 6.6 % Monocytes (%) (Auto) 10.3 % Eosinophils (%) (Auto) 1.6 % Basophils (%) (Auto) 0.9 % Neutrophils # (Auto) 5.45 K/uL (1.4-6.5) Lymphocytes # (Auto) 0.45 K/uL (1.2-3.4) Monocytes # (Auto) 0.70 K/uL (0.11-0.59) Eosinophils # (Auto) 0.11 K/uL (0-0.5) Basophils # (Auto) 0.06 K/uL (0-0.2) RDW Standard Deviation 41.9 fL (36.4-46.3) RDW Coefficient of Variation 14.0 % (11.5-14.5) Immature Granulocyte % (Auto) 0.3 % Immature Granulocyte # (Auto) 0.02 K/uL (0.00-0.02) Prothrombin Time 12.7 SECONDS (9.0-12.0) Prothromb Time International Ratio 1.2 (0.9-1.1) Activated Partial Thromboplast Time 31.0 SECONDS (21.0-31.0) Partial Thromboplastin Ratio 1.2 Anion Gap 8.0 mmol/L (3-11) Est Creatinine Clear Calc Drug Dose 50.1 ml/min Estimated GFR () 66.4 Estimated GFR (Non- 57.3 BUN/Creatinine Ratio 9.0 (10-20) Calcium Level 8.5 mg/dl (8.5-10.1) Total Bilirubin 1.7 mg/dl (0.2-1) Direct Bilirubin 0.4 mg/dl (0-0.2) Aspartate Amino Transf (AST/SGOT) 20 U/L (15-37) Alanine Aminotransferase (ALT/SGPT) 23 U/L (12-78) Alkaline Phosphatase 116 U/L (45-117) Total Creatine Kinase 158 U/L (39-308) Creatine Kinase MB 7.3 ng/ml (0.5-3.6) Creatine Kinase MB Ratio 4.6 (0-3.0) Total Protein 7.1 gm/dl (6.4-8.2) Albumin 3.4 gm/dl (3.4-5.0) Lipase 46 U/L (73-393) Beta-Hydroxybutyric Acid 3.24 mg/dL (0.2-2.81) Thyroid Stimulating Hormone (TSH) 5.010 uIu/ml (0.300-4.500) Bedside Troponin I < 0.030 ng/ml (0-0.045) Laboratory studies as stated above per my review. ECG Per My Interpretation Indication: chest pain Rate (beats per minute): 83 Rhythm: normal sinus Findings: other (LVH with repolarization. No ST elevation. ) Comparison ECG Date: October 19, 2017 Change: Rate has increased. Lateral ST/T wave abnormalities have improved. Repeat ECG shows a normal sinus rhythm with a rate of 69 bpm. LVH with repolarization. Mildly prolonged QT interval. No significant changes compared to prior ECG. ED Course 1031: Past medical records reviewed. The patient was evaluated in room A4B, and a complete history and physical examination were performed. 1402: Upon reevaluation, the patient is resting comfortably. I discussed the results and treatment plan with him. He verbalized agreement of the treatment plan. The patient was discharged home. Medical Decision Differentials include, but are not limited to; cardiac disease, arrhythmia, intraabdominal process, infection and electrolyte or metabolic abnormality. This patient comes in as described above. He was placed in room A4 he has been having intermittent twinges in his left chest. They only last a few seconds or so and may also be in more the epigastric area looks well on exam. EKG was obtained and shows no acute ischemic changes or ectopy. I did a second EKG and there is no change compared to the first. He has no acute electrolyte or metabolic abnormalities. He has nothing to suggest pancreatitis. Chest x-ray shows no definite acute findings. I did a chest CT to evaluate for PE and other pathology as well as continue to the abdomen as he has had multiple abdominal surgeries. He was reassessed frequently. He had a second troponin which was negative. CAT scan of his chest was negative for PE and other pathologies. CAT scan of his abdomen and pelvis shows no acute findings. He does have a mass or cyst on his kidney which I encouraged him to follow-up with his regular doctor space this has been noted before his tells me. He has a parastomal hernia but on exam he has no tenderness or obvious abnormality and no symptoms and has had good ostomy output. In regards to his chest pain, I do not think is likely cardiac and it only lasts a second or 2 and is intermittent and has no associated symptoms additionally his workup here is unremarkable and he strongly desires to go home. I think this is reasonable with close follow-up with his regular doctor next couple days. He was encouraged to return if: Increasing pain, worsening of symptoms, fever chills, any new problems or concerns. The patient and his were happy the plan and he was discharged to home. Medication Reconcilliation Current Medication List: was personally reviewed by me Blood Pressure Screening Patient's blood pressure: Normal blood pressure Blood pressure disposition: Did not require urgent referral Impression Primary Impression: Left sided chest pain Scribe Attestation The scribe's documentation has been prepared under my direction and personally reviewed by me in its entirety. I confirm that the note above accurately reflects all work, treatment, procedures, and medical decision making performed by me. Departure Information Dispostion Home / Self-Care Referrals Olman Latham M.D. (PCP) Forms IMPORTANT VISIT INFORMATION Patient Instructions My [facility] Additional Instructions Rest. Follow-up with Dr. Latham in the next 1-2 days for recheck Return if: Increasing pain, shortness of breath, worsening of symptoms, any new problems or concerns.
--- NOTE | 2017-11-17 13:36 | DIAGNOSTIC IMAGING REPORT ---
(CHEST FOR PE) ANGIO WITH CT DOSE: 1488.50 mGycm HISTORY: 87 years-old Male presents with acute left-sided chest pain. History of prior left lower lobectomy TECHNIQUE: Multiple CTA images of the chest were obtained after the intravenous administration of 94 ml Optiray 320. Coronal and sagittal MIPS were obtained from the axial data set and were submitted for review. A dose lowering technique was utilized adhering to the principles of ALARA. COMPARISON: Chest radiograph of same day, CTA chest 03/21/2017 FINDINGS: CTA: Moderate cardiomegaly with left heart structures not well opacified. There is no aortic aneurysm or dissection identified. There is at least moderate mixed plaquing of the thoracic aorta with patency of the imaged great vessels. Coronary arterial calcifications noted. No thoracic aortic aneurysm or dissection identified. There is reflux of contrast into the IVC and hepatic veins. IVC, right atrium and right ventricle are otherwise unremarkable. Pulmonary arterial tree is opacified to the level of the segmental branches and demonstrates no focal filling defects to suggest pulmonary thromboembolic disease. CT CHEST: No dominant thyroid nodule. Multiple calcified hilar and mediastinal lymph nodes are compatible with prior granulomatous disease. Trace left pleural effusion redemonstrated. Postoperative changes from prior left lower lobectomy with areas of subsegmental linear atelectasis/scarring of the bilateral lung bases. Calcified granuloma with adjacent pleural parenchymal scarring involves the right upper lobe just superior to the minor fissure. Minimal traction bronchiectasis of the right lower lobe redemonstrated. Minimal ill-defined ground glass opacities of the right upper lobe are seen just superior to the minor fissure as noted on image 162 series 4. Central airways are generally patent. Large cyst of the superior pole left kidney is again seen measuring up to 10.2 cm in length, only partially imaged. No acute process of the imaged upper abdomen. Bones appear intact. Multilevel endplate spurring about the spine. Partial bony fusion involves the left fifth and sixth ribs laterally. IMPRESSION: 1. Cardiomegaly without evidence of pulmonary thromboembolic disease or acute aortic pathology. 2. Postoperative changes from prior left lower lobectomy with chronic trace left pleural fluid. 3. Mild subsegmental bibasilar scarring/atelectasis appears unchanged with minimal bronchiectasis of the basal right lower lobe. 4. Prior granulomatous disease. The above report was generated using voice recognition software. It may contain grammatical, syntax or spelling errors. Electronically signed by: Heri Reich M.D. 11/17/2017 1:35 PM Dictated Date/Time: 11/17/2017 1:27 PM
--- NOTE | 2017-11-17 13:48 | DIAGNOSTIC IMAGING REPORT ---
CT OF THE ABDOMEN AND PELVIS WITH CONTRAST CLINICAL HISTORY: Left-sided chest pain. Evaluate for bowel obstruction. History of colon cancer. COMPARISON STUDY: Head CT March 11, 2012 and MRI of the pelvis May 16, 2014. TECHNIQUE: Following IV administration of 94 mL of Optiray-320, axial images of the abdomen and pelvis were obtained from the lung bases to the proximal femurs. Images were reviewed in the axial, sagittal, and coronal planes. IV contrast was administered without complication. A dose lowering technique was utilized adhering to the principles of ALARA. FINDINGS: The chest CT will be reported separately. No pneumatosis, free air or portal venous gas is present. An apparent splenic cleft is unchanged since earlier exams. Pancreatic glandular atrophy is unchanged. There are multiple water attenuation renal lesions which are consistent with cysts, including a 10.1 cm cyst arising from the upper pole the left kidney. Note is made of a 3.9 cm complex lesion arising from the midpole of the right kidney that is centrally hypodense with peripheral increased attenuation. A large cyst was likely shown at this site on exam of March 11, 2012 and this has decreased in size since that exam. There are postoperative findings consistent with a colectomy with a right lower quadrant ileostomy. A parastomal hernia is present. There is no evidence for a bowel obstruction. Presacral infiltration and tubular structures within the presacral region are unchanged since PET/CT of March 11, 2012 and are therefore likely benign and may reflect postsurgical change. There is mild asymmetric wall thickening of the right aspect of the bladder which is unchanged since prior PET/CT. Bladder wall is trabeculated. There is no lymphadenopathy. There are no suspicious skeletal lesions. Note is made of fat-containing bilateral inguinal hernias, right larger than left. IMPRESSION: 1. No acute process within the abdomen or pelvis. 2. Right lower quadrant ileostomy parastomal hernia. No bowel obstruction. 3. 3.9 cm complex lesion arising from the midpole of the right kidney. A large cyst was likely shown at this site on PET/CT of March 11, 2012. Therefore, this likely reflects a complex cyst with interval rupture/hemorrhage. However, a follow-up nonemergent MRI of the kidneys is recommended to exclude a solid lesion. 4. Stable postoperative findings following colectomy, as described above. Electronically signed by: Bib Castanon M.D. 11/17/2017 1:47 PM Dictated Date/Time: 11/17/2017 1:32 PM
[2017-11-17 14:32] VITALS: BP 154/86; PULSE 66; O2SAT 94
== END 2017-11-17 14:30 | disposition home or self-care (01) ==
LOC: C.EDB 10:10 → C.EDA 14:30
DX: R07.89 Other chest pain (principal); N28.89 Other specified disorders of kidney and ureter; K43.5 Parastomal hernia without obstruction or gangrene; I48.91 Unspecified atrial fibrillation; I50.9 Heart failure, unspecified; J98.4 Other disorders of lung; I42.2 Other hypertrophic cardiomyopathy; E10.9 Type 1 diabetes mellitus without complications; Z79.4 Long term (current) use of insulin; Z79.01 Long term (current) use of anticoagulants

== ENCOUNTER → 2018-03-03 | Outpatient (CLI) | payer BC ==
[~2018-03-03] MED LIST changes: -COEN1CAP28 PO; -OXGN
[2018-03-03 13:24] LABS: HEMOGLOBIN A1C 9.6 % (4.5-5.6)
[2018-03-03 13:50] LABS: ALBUMIN 3.3 gm/dl (3.4-5.0); TOTAL PROTEIN 6.8 gm/dl (6.4-8.2)
== END | disposition home or self-care (01) ==
LOC: C.LABBC 10:51
PROVIDERS: ATTEND Physician Assistant Medical
DX: E11.9 Type 2 diabetes mellitus without complications (principal); I48.91 Unspecified atrial fibrillation; E55.9 Vitamin D deficiency, unspecified

== ENCOUNTER 2018-07-22 14:17 | Inpatient (IN) ==
[2018-07-22] MEDS ORDERED: ALBUT/IPRATROP 3MG/0.5MG NEB 3 ML VIAL NEB ONE (15:50)
[2018-07-22] MEDS ORDERED: methylPREDNISolone 125 MG/2 ML VIAL IV STA (15:50)
[2018-07-22 17:05] LABS: Oxygen Saturation VBG 77.1 %; pH VBG 7.4 (7.36-7.41)
[2018-07-22 17:08] LABS: Basophils # (auto) 0.06 K/uL (0-0.2); Basophils % (auto) 0.5 %; Eosinophils # (auto) 0.13 K/uL (0-0.5); Hematocrit (blood only) 43.8 % (42-52); Hemoglobin 15.2 g/dL (14.0-18.0); Immature Granulocytes % (auto) 0.8 %; Lymphocytes # (auto) 0.79 K/uL (1.2-3.4); Mean Corpuscular Hgb Conc 34.7 g/dL (32-36); Mean Corpuscular Volume 83.3 fL (80-100); Mean Platelet Volume 12.1 fL (7.4-10.4); Monocytes # (auto) 1.44 K/uL (0.11-0.59); Neutrophils # (auto) 10.59 K/uL (1.4-6.5); Neutrophils % (auto) 80.7 %; Platelet Count 198 K/uL (130-400); RDW Coefficient of Variation 13.7 % (11.5-14.5); RDW Standard Deviation 41.7 fL (36.4-46.3); Red Blood Count 5.26 M/uL (4.7-6.1); White Blood Count 13.11 K/uL (4.8-10.8)
[2018-07-22 17:19] LABS: BUN Creatinine Ratio 11.7 (10-20); Blood Urea Nitrogen 11 mg/dl (7-18); Calcium 9.1 mg/dl (8.5-10.1); Carbon Dioxide 26 mmol/L (21-32); Chloride 101 mmol/L (98-107); Est GFR (African American) 83.7; Est GFR (Non-African American) 72.2; Glucose 252 mg/dl (70-99); Potassium 4.3 mmol/L (3.5-5.1); Sodium 133 mmol/L (136-145)
[2018-07-22 17:26] LABS: Troponin I 0.046 ng/ml (0-0.045)
[2018-07-22] MEDS ORDERED: LEVOFLOXACIN/D5W 750 MG/150 ML BAG IV STA (17:26)
--- NOTE | 2018-07-22 17:31 | XRay Report ---
XR chest 1V portable HISTORY: 87 years-old Male Cough, SHOB, Hypoxia acute cough with shortness of breath COMPARISON: Chest radiograph 07/16/2018 TECHNIQUE: Portable upright AP view of the chest FINDINGS: Cardiac silhouette is enlarged, unchanged. Calcification of the thoracic aortic arch. Pulmonary vascu lar congestion. Chronic left hemidiaphragmatic elevation with trace left pleural effusion. Subsegment al bibasilar opacities. Degenerative changes of the shoulders and spine. Calcified mediastinal lymph nodes. Calcium granuloma of the lateral right midlung. IMPRESSION: 1. Cardiomegaly with pulmonary vascular congestion. 2. Chronic left hemidiaphragm elevation with trace left pleural effusion. 3. Subsegmental bibasilar opacities, likely atelectatic. The above report was generated using voice recognition software. It may contain grammatical, syntax o r spelling errors. Electronically signed by: Heri Reich M.D. 07/22/2018 5:30 PM
[2018-07-22 17:44] LABS: Influenza A virus by PCR Neg for Influ A (Neg); Influenza B virus by PCR Neg for Influ B (Neg)
--- NOTE | 2018-07-22 18:01 | History & Physical Report ---
Date of Service July 22, 2018 Assessment & Plan (1) Acute respiratory failure with hypoxia: (2) Shortness of breath: (3) COPD (chronic obstructive pulmonary disease): -Admit to [facility] with telemetry -This is possibly an acute exacerbation of COPD versus bronchitis versus viral upper respiratory infection -Patient received Solu-Medrol 125 mg IV in the ER, continue 60 mg IV q12h -Start antibiotics: ceftriaxone and azithromycin IV, hold Levaquin as ordered in the ER due to prolonged QT. -Sputum culture -Flu swab negative -Patient follows with Dr. garcia as an outpatient, can consider pulmonology consult if symptoms worsen -Xopenex nebs, Mucinex, Tessalon Perles, supplemental O2, patient is currently requiring 6 L via NC. -WBC= 13.1, follow a.m. labs -Afebrile, other VSS (4) Carcinoma of lower lobe, bronchus or lung: (5) Lobectomy of lung: Noted, patient did not receive chemotherapy or XRT, this was over 10 years ago, stable (6) Elevated troponin: -Trend cardiac biomarkers, initial troponin is 0.046 -Patient denies any cardiac symptoms, EKG was reviewed without signs of ST wave inversion no signs of ischemia, this is likely demand ischemia (7) Chronic a-fib: (8) Chronic anticoagulation: -Continue on home dose of Xarelto (9) HTN (hypertension): Continue on amiodarone 200 mg daily (10) DM II (diabetes mellitus, type II), controlled: -ISS with Accu-Cheks -Last A1C =9.6 on 03/05/18, will recheck with morning labs -Continue NovoLog 70/30 mix 65 units bid for now, likely will need to adjust with high dosing of steroids (11) Hypothyroidism: -Continue Synthroid 50 mcg daily (12) HLD (hyperlipidemia): -Continue rosuvastatin 5 mg daily (13) BPH (benign prostatic hyperplasia): -Continue Flomax daily, Proscar 5 mg daily (14) DVT prophylaxis: Teds, SCDs, continue Xarelto, ambulatory History of Present Illness Chief Complaint: SOB Primary Care Provider: Olman Latham MD This is a 87 yo M with PMHx of COPD, hx of lung cancer s/p LLL lobectomy about 10 years ago, remote smoking history x8 years between age 19 and 27, EDER on CPAP , nocturnal hypoxia, atrial fibrillation on chronic anticoagulation, DM Type II , HTN, HLD, gait disturbance, vit d deficiency, hypothyroidism, who presents with acute shortness of breath found to be hypoxic with O2 sats = 87% on RA. Patient notes that his increasing shortness of breath has gone on for about 3 days, but has overall gotten worse within the past 1 month. He reports attempting to take the garbage out about 3 days ago and found it to be significantly difficult and was huffing and puffing by the end of walking down his driveway carrying 3 large bags. Today the patient was unable to participate in ADLs without significant SOB. He denies any fevers, chills or sweats. Patient denies any recent sick contacts. Of note, patient is fairly noncompliant with wearing CPAP at night due to the noise it makes. He does not wear any other supplemental O2. Patient has received 1 hour long nebulizer treatment in the ER and reports feeling significantly better, also received Solu-Medrol 125 mg IV. Allergies Allergy/AdvReac Type Severity Reaction Status Date / Time No Known Allergies Allergy Verified 07/16/18 21:11 Home Medications Home Medications Medication Instructions Recorded Confirmed Type Ca-D3-mag qt-utxe-mkw-joanne-bor 1 tab PO HS 07/16/18 07/22/18 History [Calcium 600-D3 Plus] albuterol sulfate [Ventolin HFA] 2 puff INHALATION Q4 PRN 07/16/18 07/22/18 History amiodarone [Pacerone] 200 mg PO DAILY 07/16/18 07/22/18 History benzonatate [Tessalon Perles] 100 mg PO TID PRN 07/16/18 07/22/18 History bimatoprost 1 drp OPB PM 07/16/18 07/22/18 History cholecalciferol (vitamin D3) 2,000 unit PO DAILY 07/16/18 07/22/18 History [Vitamin D3] finasteride [Proscar] 5 mg PO DAILY 07/16/18 07/22/18 History insulin asp prt-insulin aspart 65 unit SUBCUT BIDM 07/16/18 07/22/18 History [Novolog Mix 70-30 U-100 Insuln] ipratropium-albuterol 3 ml INHALATION Q4 PRN 07/16/18 07/22/18 History levothyroxine [Synthroid] 50 mcg PO DAILY 07/16/18 07/22/18 History rivaroxaban [Xarelto] 15 mg PO DAILY 07/16/18 07/22/18 History rosuvastatin [Crestor] 5 mg PO DAILY 07/16/18 07/22/18 History tamsulosin [Flomax] 0.4 mg PO DAILY 07/16/18 07/22/18 History vit C,T-Zu-cdnyg-lutein-zeaxan 1 tab PO DAILY 07/16/18 07/22/18 History [PreserVision AREDS-2] Past Med/Surg History Medical History Elevated troponin BPH (benign prostatic hyperplasia) HLD (hyperlipidemia) HTN (hypertension) Hypothyroidism DM II (diabetes mellitus, type II), controlled Chronic anticoagulation Chronic a-fib Shortness of breath COPD (chronic obstructive pulmonary disease) 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) Fever (Resolved) Urosepsis (Resolved 07/23/13) Altered mental status (Resolved) Atrial fibrillation with rapid ventricular response (Resolved) Carcinoma of lower lobe, 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) Lobectomy of lung (Resolved 05/06/12) Acute respiratory failure with hypoxia CHF (congestive heart failure) Hypervolemia Social History marital status: Current Living Situation: Spouse Current Living Situation Comment: House current occupational status: retired Other Information That Helps Us Care for You: No Feels Safe at Home: Yes Safety Concerns: Feels Safe At This Time Smoking Status: Former smoker Tobacco Type: cigarettes Smoking End Date: 60 years ago Hx Alcohol Use: No Hx Substance Use: No Beliefs That Will Affect Care: None Preferred Language: [place] Communication Ability: Effective Communication Ability Comment: Appropriate Safety And Skill Based Pay Manager Required: No Review of Systems Constitutional: No fever, sweats or chills Eyes: No diplopia, no worsening or blurred vision ENT: normal hearing, no trouble swallowing Respiratory: + Shortness of breath at rest and with exertion, + nonproductive cough Cardiovascular: No chest pain, tightness or palpitations Abdomen: No pain, nausea, vomiting, diarrhea or constipation Musculoskeletal: No joint pain, calf pain, swelling Neurologic: No weakness, numbness/tingling, or balance problems Psychiatric: No anxiety or depression Skin: No rash or itch Physical Exam 2 Vital Signs (Past 24 Hours): Last Vital Signs Temp 36.3 C L 07/22/18 14:22 Pulse 74 07/22/18 16:39 Resp 18 07/22/18 16:39 BP 117/70 07/22/18 16:30 Pulse Ox 96 07/22/18 16:39 Physical Exam: General: awake, alert, no apparent distress Head: Normocephalic, atraumatic ENT: PERRL, EOMI, oral cavity not examined due to nebulizer treatment. Chest: Currently getting 1 hour long neb tx, coarse breath sounds throughout , absent breath sounds in the left lower status post lobectomy, on 6 L via NC, O2 sats equal 95%, no use of accessory muscles Cardiac: Regular rate and rhythm, soft systolic ejection murmur grade 2/6, no JVD, normal peripheral pulses, good capillary refill Abdominal: NABS x 4 quadrants, soft, nontender to palpation, no rebound, guarding or tenderness Extremities: Normal inspection, no peripheral edema or erythema, calfs nontender to palpation Psych: Normal mood and affect Neuro: AAO x 3, no gross motor deficits, speech is clear, no peripheral sensory deficits Code Status & VTE Plan Code Status Full Supervising Physician Co-Signing Physician Notes Patient seen and examined, chart reviewed, case discussed with LOBITO Reynaga and I agree with her assessment and plan as documented above. Briefly, patient is an 87yo male with remote history of lung CA s/p LL lobectomy, COPD, presenting with progressive SOB. DIffuse wheezing On exam he is afebrile, HD stable, mildly tachypneic Diffuse wheezing in bilateral lung g[place], diminished in the bases Labs and images reviewed Assessment/Plan: concern for COPD exacerbatin, ?underlying infection. Will manage with antibiotics, steroids, nebs. Remainder of plan as above
[2018-07-22] MEDS: cefTRIAXone SODIUM 2,000 MG in DEXTROSE 5% 50 ML IV SCH (18:55)
[2018-07-22] MEDS ORDERED: ALBUTEROL HFA 8 GM INHALER INH PRN (19:53)
[2018-07-22] MEDS ORDERED: CARBOHYDRATES FOR HYPOGLYCEMIA PO PRN (19:53)
[2018-07-22] MEDS ORDERED: GLUCOSE 40% GEL 15 GM TUBE PO PRN (19:53)
[2018-07-22] MEDS ORDERED: DEXTROSE 50% 50 ML SYRINGE IV PRN (19:53)
[2018-07-22] MEDS ORDERED: BENZONATATE 100 MG CAPSULE PO PRN (19:53)
[2018-07-22] MEDS ORDERED: GLUCOSE 10 TABS/TUBE PO PRN (19:53)
[2018-07-22] MEDS ORDERED: GLUCAGON FOR INJ 1 MG VIAL SQ PRN (19:53)
[2018-07-22] MEDS ORDERED: ONDANSETRON INJ 2 MG/ML 2 ML VIAL IV PRN (19:53)
[2018-07-22] MEDS ORDERED: PATIENT'S HEIGHT AND/OR WEIGHT NEEDED SCH (20:30)
[2018-07-22] MEDS: LEVALBUTEROL 1.25MG/0.5ML NEB NEB SCH (20:36)
[2018-07-22] MEDS ORDERED: BENZONATATE 100 MG CAPSULE PO SCH (21:00)
[2018-07-22] MEDS ORDERED: PHARMACY GLYCEMIC MGMT CONSULT PRN (21:31)
[2018-07-22] MEDS: AZITHROMYCIN 500 MG in DEXTROSE 5% 250 ML IV SCH (21:35)
[2018-07-22] MEDS ORDERED: INSULIN GLARGINE SOLOSTAR 100 UNITS/ML 3 ML PEN SC ONE (22:00)
[2018-07-22] MEDS: BENZONATATE 100 MG CAPSULE PO SCH (22:11)
[2018-07-22] MEDS: methylPREDNISolone 60 MG in SYRINGE 0 ML IV SCH (22:11)
[2018-07-22] MEDS: guaiFENesin 600 MG TABCR PO SCH (22:12)
[2018-07-22] MEDS: CALCIUM 600MG + VIT D 400 IU TAB PO SCH (22:13)
[2018-07-22] MEDS: INSULIN ASPART 100 UNITS/ML 3 ML PEN SC SCH (22:17)
[2018-07-23] MEDS: INSULIN ASPART 100 UNITS/ML 3 ML PEN SC SCH ×6 (00:19→20:55)
[2018-07-23] MEDS: LEVALBUTEROL 1.25MG/0.5ML NEB NEB SCH ×4 (01:48→19:49)
[2018-07-23] MEDS: LEVOTHYROXINE SODIUM 50 MCG TABLET PO SCH (05:27)
[2018-07-23 07:36] LABS: Hematocrit (blood only) 44.3 % (42-52); Hemoglobin 15.5 g/dL (14.0-18.0); Mean Corpuscular Volume 83.4 fL (80-100); Mean Platelet Volume 11.8 fL (7.4-10.4); Platelet Count 198 K/uL (130-400); RDW Coefficient of Variation 13.6 % (11.5-14.5); RDW Standard Deviation 41.5 fL (36.4-46.3); Red Blood Count 5.31 M/uL (4.7-6.1); White Blood Count 15.18 K/uL (4.8-10.8)
[2018-07-23 07:43] LABS: INR 1.1 (0.9-1.1); Prothrombin Time 11.2 Seconds (9.0-12.0)
[2018-07-23 07:54] LABS: Albumin Level 2.7 gm/dl (3.4-5.0); BUN Creatinine Ratio 12.1 (10-20); Bilirubin Direct 0.1 mg/dl (0-0.2); Calcium 9.6 mg/dl (8.5-10.1); Creatinine Clr Calc Pharmacy 54.8 ml/min; Est GFR (African American) 75.9; Est GFR (Non-African American) 65.5; Potassium 4.5 mmol/L (3.5-5.1)
[2018-07-23 07:59] LABS: Albumin Globulin Ratio 0.7 (0.9-2); Bilirubin,Total 0.5 mg/dl (0.2-1); Globulin 3.8 gm/dl (2.5-4.0); Total Protein 6.5 gm/dl (6.4-8.2); Troponin I 0.024 ng/ml (0-0.045)
[2018-07-23] MEDS ORDERED: PNEUMOCOCCAL POLYSACCHARIDES 25 MCG/0.5 ML VIAL/SYR IM ONE (08:00)
[2018-07-23] MEDS ORDERED: INSULIN 70% ASPART PROTAMINE/30% ASPART SQ SCH (08:00)
[2018-07-23] MEDS ORDERED: PNEUMOCOCCAL ADMINISTRATION CHARGE ONE (08:00)
[2018-07-23] MEDS: ROSUVASTATIN CALCIUM 5 MG TAB PO SCH (08:06)
[2018-07-23] MEDS: AMIODARONE 200 MG TAB PO SCH (08:06)
[2018-07-23] MEDS: methylPREDNISolone 60 MG in SYRINGE 0 ML IV SCH ×2 (08:07→20:51)
[2018-07-23] MEDS: TAMSULOSIN HCL 0.4 MG CAP PO SCH (08:07)
[2018-07-23] MEDS: BENZONATATE 100 MG CAPSULE PO SCH ×3 (08:07→20:52)
[2018-07-23] MEDS: CHOLECALCIFEROL 1,000 UNITS TAB PO SCH (08:07)
[2018-07-23] MEDS: FINASTERIDE 5 MG TAB PO SCH (08:07)
[2018-07-23] MEDS: INSULIN GLARGINE SOLOSTAR 100 UNITS/ML 3 ML PEN SC SCH ×2 (08:07→20:54)
[2018-07-23] MEDS: guaiFENesin 600 MG TABCR PO SCH ×2 (08:07→20:51)
--- NOTE | 2018-07-23 09:00 | Pharmacy Report ---
Glycemic Control Consultation - Date of Service July 23, 2018 - Scope Scope: Glycemic Pharmacist consulted by Dr Eddy on 07/23/17 for glycemic control and to write orders per [facility] inpatient glycemic control protocol - Objective Weight: 85.4 kg [place] BSG (last 24hrs): 07/22/18 07/22/18 07/22/18 16:47 21:16 22:15 Glucose 252 H POC Glucose 362 H* 322 H 07/23/18 07/23/18 07/23/18 00:13 03:57 07:13 Glucose 178 H POC Glucose 389 H* 225 H 07/23/18 07:22 Glucose POC Glucose 168 H Laboratory Data (last 24hrs): 07/22/18 07/23/18 16:47 07:13 Potassium 4.3 4.5 Carbon Dioxide 26 23 Anion Gap 6.0 10.0 Creatinine 0.95 1.03 Est Cr Clr Drug Dosing Not Reportable 54.8 - Recent Pertinent Medications Outpatient Anti-diabetic Regimen: * Novolog mix 70/30 65 units BID * A1c = 9.6 % from 03/03/18 - updated A1c pending The patient is currently receiving: * Basal insulin: Lantus 40 units SQ given last evening * Correctional Insulin: Novolog Correction per scale ACHS Goal Range: Low 110 mg/dL - High 150 mg/dL Correction Factor: 10 mg/dL/unit * Prandial insulin: Per carb ratio of 1 unit per 3 grams CHO consumed Risk Factors for Insulin Resistance: * Steroids: solu medrol 125 mg IV x 1 in ED (07/22), then 60 mg IV q12h * Infection: empiric ceftriaxone and zithromax * Diet: T2DM - Assessment & Plan Assessment & Plan: ASSESSMENT: * 87 yr old T2DM male admitted for acute respiratory failure with hypoxia possibly due to COPD exacerbation vs. bronchitis. * Mr. Cardozo uses pre-mixed insulin at home (Novolog mix 70/30) 65 units BID. * He experienced severe hyperglycemia last evening likely due to administration of high dose IV steroids; solu medrol 60 mg IV q12h. * His current insulin dosing is based on his home dose of 130 units/day plus stress of 2 to account for steroids. * Changes needed to insulin regimen: * Fasting BSG of 168 mg/dL is slightly above goal. Will increase basal insulin by 11%. * Post prandial BSGs remain slightly elevated. Will tighten Novolog carb ratio. PLAN FOR INPATIENT GLYCEMIC CONTROL: * Basal insulin * Lantus per scale SQ BID * 40 units for BSG < 160 mg/dL * 45 units for BSG 160 mg/dL or more * Bolus insulin - tighten carb ratio * NovoLog per scale ACHS or Q6hrs while NPO * Goal Range: Low 110 mg/dL - High 150 mg/dL * Correction Factor: 10 mg/dL/unit * Nutritional / Prandial insulin per carb ratio of 1 unit per 2.5 grams CHO consumed * Add check with coverage at 00 * Please note that the plan above was derived based on current level of insulin resistance and hospital stress. These recommendations are appropriate for inpatient admission only. Plan of care upon discharge will need to be reassessed to avoid potential outpatient hypo/hyperglycemia. Thank you.
--- NOTE | 2018-07-23 09:28 | Emergency Department Note ---
Entered by Akiko Hills acting as a scribe for ED Provider Note Name: Cas Benjamin Age: 87 Arrives Via: Ambulatory Informant: Patient CC: dizzy HPI: The patient is a 87 year old male who presents to the Emergency Room with complaints of an episode of dizziness that occurred earlier today. The patient reports that he was evaluated at this hospital 5 days ago for a persistent cough and discharged with a Z-Archie. He states that he has been weak and has had a dry cough as well as some shortness of breath, but denies any fevers, chest pain, abdominal pain, rhinorrhea or recent falls. The patient notes that he wears nasal cannula oxygen at night and reports that he has a history of lung cancer, COPD and partial lobectomy. The patient reports that he did receive his flu shot this year. No medications prior to arrival. Exertion makes worse. Rest makes better. ROS: See above HPI for pertinent positives & negatives. A total of 10 systems reviewed and were otherwise negative. Past Medical History: Lung cancer, COPD Past Surgical History: Partial lobectomy Family History: No pertinent family history Social History: , retired, former smoker Home Medications: See below. Allergies No known allergies. Physical: Vitals: BP: 120/80, P: 82, R: 20, T: 97.3, O2: 88 Exam: GENERAL: Patient is ill appearing and in moderate distress. EYES: No scleral icterus, unremarkable pupils. ENT: Mucous membranes dry, no nasal congestion. NECK: No masses appreciated, no meningismus, trachea is midline. RESPIRATORY: Mild dyspnea. Loud wheezing, rhonci with junky cough, CARDIOVASCULAR: Regular rate and rhythm. No murmurs, rubs, gallops appreciated. GASTROINTESTINAL: Abdomen soft, non-tender, no peritonitis. Bowel sounds positive. No masses appreciated. BACK: No midline tenderness, no CVA tenderness EXTREMITIES: Normal motion all extremities, no cyanosis, no edema. NEUROLOGIC: Alert and oriented, no acute motor or sensory deficits, no focal weakness, cranial nerves grossly intact. SKIN: No rash, no jaundice, no diaphoresis. ED Course: Prior Medical Record, Triage/Nursing Notes, Medications, Allergies reviewed by Me Vital Signs: reviewed and remarkable for hypoxia. Labs: Reviewed and remarkable for mildly elevated troponin Interventions: Saline Lock, Solumedrol 125mg IV, Levaquin 750mg IV, Hour Duoneb Imaging: See below. EKG: See below. Consults: 1729: I reviewed the patient's case with Dr. Carson - [facility] Hospitalist. She will evaluate the patient for further management. Reassessments/Times: 1654: The patient continues on nebulizer and breathing has improved 1734: The patient is breathing better and is agreeable to admission. Blood pressure: normal - no referral necessary Disposition: Admitted to Hospitalist Prescriptions: non. Differentials: COPD exacerbation, pneumonia, sepsis, influenza, heart failure, amongst other pathologies. Medical Decision Making: Pleasant 87 yr old male sp lung resection and with history COPD arrives after 5 days course of azithro clearly now worsening respiratory distress. Much improved with neb though still loud wheezing and poor lung sounds throughout. CXR with my read concerning for developing lower section left upper lobe infiltrate. WBC mildly elevated though he does not appear overtly septic. Trop bumped without chest pain nor significant EKG concerning findings thus likely this is secondary to infection/respiratory issues. He was given IV levaqion following steroids and neb. Will bring in to hospitalist for further management/evaluation. Neo Hernandez MD The scribe's documentation has been prepared under my direction and personally reviewed by me in its entirety. I confirm that the note above accurately reflects all work, treatment, procedures, and medical decision making performed by me. 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) Fever (Resolved) Urosepsis (Resolved 07/23/13) Altered mental status (Resolved) Atrial fibrillation with rapid ventricular response (Resolved) Carcinoma of lower lobe, 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) Lobectomy of lung (Resolved 05/06/12) Acute respiratory failure with hypoxia CHF (congestive heart failure) Hypervolemia Social History marital status: Current Living Situation: Spouse Current Living Situation Comment: House current occupational status: retired Other Information That Helps Us Care for You: No Feels Safe at Home: Yes Safety Concerns: Feels Safe At This Time Smoking Status: Former smoker Tobacco Type: cigarettes Smoking End Date: 60 years ago Hx Alcohol Use: No Hx Substance Use: No Beliefs That Will Affect Care: None Preferred Language: Mexican Communication Ability: Effective Communication Ability Comment: Appropriate [employer] Profiler Required: No Results & Data Vital Signs Vital Signs - 24 hr 07/22/18 14:22 07/22/18 15:54 07/22/18 16:30 Temperature 36.3 C L Temperature Source Oral Sepsis Recent Fever Within 48 Hours No Sepsis Action Taken by Nursing No Action Required Pulse Rate 82 Pulse Rate [Left] 70 Pulse Rhythm [Left] Pulse Strength [Left] Respiratory Rate 20 18 Respiratory Effort / Characteristics Non-Labored Respiratory Depth Normal Respiratory Pattern Blood Pressure 125/80 Blood Pressure [Right Arm] 117/70 Blood Pressure Mean 95 Blood Pressure Mean [Right Arm] 85 Blood Pressure Position [Right Arm] Pulse Oximetry 92 88 L 96 Oxygen Delivery Method Room Air Room Air Nasal Cannula Oxygen Flow Rate 0 2 07/22/18 16:39 07/22/18 18:26 07/22/18 18:57 Temperature Temperature Source Sepsis Recent Fever Within 48 Hours Sepsis Action Taken by Nursing Pulse Rate Pulse Rate [Left] 74 90 90 Pulse Rhythm [Left] Pulse Strength [Left] Respiratory Rate 18 20 20 Respiratory Effort / Characteristics Non-Labored Spontaneous Respiratory Depth Respiratory Pattern Blood Pressure Blood Pressure [Right Arm] 113/68 Blood Pressure Mean Blood Pressure Mean [Right Arm] 83 Blood Pressure Position [Right Arm] Pulse Oximetry 96 96 92 Oxygen Delivery Method Nasal Cannula Nasal Cannula Oxygen Flow Rate 3 2 07/22/18 20:12 07/22/18 21:07 07/22/18 22:59 Temperature 36.8 C Temperature Source Oral Sepsis Recent Fever Within 48 Hours Sepsis Action Taken by Nursing Pulse Rate 98 H Pulse Rate [Left] 100 H Pulse Rhythm [Left] Irregular Pulse Strength [Left] Normal Respiratory Rate 23 Respiratory Effort / Characteristics Non-Labored SOB on Exertion Non-Labored SOB on Exertion Respiratory Depth Normal Normal Respiratory Pattern Regular Regular Blood Pressure Blood Pressure [Right Arm] 134/78 Blood Pressure Mean Blood Pressure Mean [Right Arm] 96 Blood Pressure Position [Right Arm] Sitting Pulse Oximetry 91 Oxygen Delivery Method Nasal Cannula Nasal Cannula Oxygen Flow Rate 07/23/18 01:48 07/23/18 04:27 07/23/18 04:30 Temperature 36.4 C L Temperature Source Oral Sepsis Recent Fever Within 48 Hours Sepsis Action Taken by Nursing Pulse Rate 95 H Pulse Rate [Left] 92 H 85 Pulse Rhythm [Left] Regular Pulse Strength [Left] Normal Respiratory Rate 18 20 Respiratory Effort / Characteristics Non-Labored Spontaneous Non-Labored Respiratory Depth Normal Respiratory Pattern Regular Blood Pressure Blood Pressure [Right Arm] 111/64 Blood Pressure Mean Blood Pressure Mean [Right Arm] 79 Blood Pressure Position [Right Arm] Lying Pulse Oximetry 93 93 Oxygen Delivery Method Nasal Cannula Nasal Cannula Oxygen Flow Rate 3 2 07/23/18 06:58 07/23/18 07:36 07/23/18 08:00 Temperature 36.3 C L Temperature Source Oral Sepsis Recent Fever Within 48 Hours Sepsis Action Taken by Nursing Pulse Rate 81 Pulse Rate [Left] 84 86 Pulse Rhythm [Left] Pulse Strength [Left] Respiratory Rate 16 18 Respiratory Effort / Characteristics Non-Labored Spontaneous SOB on Exertion Respiratory Depth Normal Respiratory Pattern Regular Blood Pressure Blood Pressure [Right Arm] 123/77 Blood Pressure Mean Blood Pressure Mean [Right Arm] 92 Blood Pressure Position [Right Arm] Pulse Oximetry 94 94 Oxygen Delivery Method Nasal Cannula Nasal Cannula Nasal Cannula Oxygen Flow Rate 2 2 2 Home Medications Current Medication List: was personally reviewed by me Laboratory Data Attestation: I reviewed the patient's lab results. Result diagrams: 07/23/18 07:13 07/23/18 07:13 Lab Results 07/22/18 07/22/18 07/22/18 Range/Units 16:30 16:47 16:47 WBC 13.11 H (4.8-10.8) K/uL RBC 5.26 (4.7-6.1) M/uL Hgb 15.2 (14.0-18.0) g/dL Hct 43.8 (42-52) % MCV 83.3 (80-100) fL MCH 28.9 (25-34) pg MCHC 34.7 (32-36) g/dL RDW Std Deviation 41.7 (36.4-46.3) fL RDW Coeff of [place] 13.7 (11.5-14.5) % Plt Count 198 (130-400) K/uL MPV 12.1 H (7.4-10.4) fL Immature Gran % (Auto) 0.8 % Neut % (Auto) 80.7 % Lymph % (Auto) 6.0 % [place] % (Auto) 11.0 % Eos % (Auto) 1.0 % Baso % (Auto) 0.5 % Immature Gran # (Auto) 0.10 H (0.00-0.02) K/uL Neut # (Auto) 10.59 H (1.4-6.5) K/uL Lymph # (Auto) 0.79 L (1.2-3.4) K/uL [place] # (Auto) 1.44 H (0.11-0.59) K/uL Eos # (Auto) 0.13 (0-0.5) K/uL Baso # (Auto) 0.06 (0-0.2) K/uL PT (9.0-12.0) Seconds INR (0.9-1.1) VBG pH 7.40 (7.36-7.41) VBG pCO2 45 (38-50) mmHg VBG pO2 42 mmHg VBG HCO3 27 mmol/L VBG O2 Saturation 77.1 % VBG Base Excess 2.0 mEq/L Barometric Pressure 733.7 mm/Hg Sodium (136-145) mmol/L Potassium (3.5-5.1) mmol/L Chloride (98-107) mmol/L Carbon Dioxide (21-32) mmol/L Anion Gap (3-11) BUN (7-18) mg/dl Creatinine (0.6-1.4) mg/dl Est Cr Clr Drug Dosing Est GFR ( Amer) Est GFR (Non-Af Amer) BUN/Creatinine Ratio (10-20) Glucose (70-99) mg/dl POC Glucose (70-99) POC Lactic Acid Gm (0.90-1.70) mmol/L Calcium (8.5-10.1) mg/dl Total Bilirubin (0.2-1) mg/dl Direct Bilirubin (0-0.2) mg/dl AST (15-37) U/L ALT (12-78) U/L Alkaline Phosphatase (45-117) U/L Troponin I (0-0.045) ng/ml Total Protein (6.4-8.2) gm/dl Albumin (3.4-5.0) gm/dl Globulin (2.5-4.0) gm/dl Albumin/Globulin Ratio (0.9-2) Influenza Type A (PCR) Neg for Influ A (Neg) Influenza Type B (PCR) Neg for Influ B (Neg) 07/22/18 07/22/18 07/22/18 Range/Units 16:47 16:58 21:16 WBC (4.8-10.8) K/uL RBC (4.7-6.1) M/uL Hgb (14.0-18.0) g/dL Hct (42-52) % MCV (80-100) fL MCH (25-34) pg MCHC (32-36) g/dL RDW Std Deviation (36.4-46.3) fL RDW Coeff of [place] (11.5-14.5) % Plt Count (130-400) K/uL MPV (7.4-10.4) fL Immature Gran % (Auto) % Neut % (Auto) % Lymph % (Auto) % [place] % (Auto) % Eos % (Auto) % Baso % (Auto) % Immature Gran # (Auto) (0.00-0.02) K/uL Neut # (Auto) (1.4-6.5) K/uL Lymph # (Auto) (1.2-3.4) K/uL [place] # (Auto) (0.11-0.59) K/uL Eos # (Auto) (0-0.5) K/uL Baso # (Auto) (0-0.2) K/uL PT (9.0-12.0) Seconds INR (0.9-1.1) VBG pH (7.36-7.41) VBG pCO2 (38-50) mmHg VBG pO2 mmHg VBG HCO3 mmol/L VBG O2 Saturation % VBG Base Excess mEq/L Barometric Pressure mm/Hg Sodium 133 L (136-145) mmol/L Potassium 4.3 (3.5-5.1) mmol/L Chloride 101 (98-107) mmol/L Carbon Dioxide 26 (21-32) mmol/L Anion Gap 6.0 (3-11) BUN 11 (7-18) mg/dl Creatinine 0.95 (0.6-1.4) mg/dl Est Cr Clr Drug Dosing Not Reportable Est GFR ( Amer) 83.7 Est GFR (Non-Af Amer) 72.2 BUN/Creatinine Ratio 11.7 (10-20) Glucose 252 H (70-99) mg/dl POC Glucose 362 H* (70-99) POC Lactic Acid Gm 1.39 (0.90-1.70) mmol/L Calcium 9.1 (8.5-10.1) mg/dl Total Bilirubin (0.2-1) mg/dl Direct Bilirubin (0-0.2) mg/dl AST (15-37) U/L ALT (12-78) U/L Alkaline Phosphatase (45-117) U/L Troponin I 0.046 H* (0-0.045) ng/ml Total Protein (6.4-8.2) gm/dl Albumin (3.4-5.0) gm/dl Globulin (2.5-4.0) gm/dl Albumin/Globulin Ratio (0.9-2) Influenza Type A (PCR) (Neg) Influenza Type B (PCR) (Neg) 07/22/18 07/22/18 07/23/18 Range/Units 22:02 22:15 00:13 WBC (4.8-10.8) K/uL RBC (4.7-6.1) M/uL Hgb (14.0-18.0) g/dL Hct (42-52) % MCV (80-100) fL MCH (25-34) pg MCHC (32-36) g/dL RDW Std Deviation (36.4-46.3) fL RDW Coeff of [place] (11.5-14.5) % Plt Count (130-400) K/uL MPV (7.4-10.4) fL Immature Gran % (Auto) % Neut % (Auto) % Lymph % (Auto) % [place] % (Auto) % Eos % (Auto) % Baso % (Auto) % Immature Gran # (Auto) (0.00-0.02) K/uL Neut # (Auto) (1.4-6.5) K/uL Lymph # (Auto) (1.2-3.4) K/uL [place] # (Auto) (0.11-0.59) K/uL Eos # (Auto) (0-0.5) K/uL Baso # (Auto) (0-0.2) K/uL PT (9.0-12.0) Seconds INR (0.9-1.1) VBG pH (7.36-7.41) VBG pCO2 (38-50) mmHg VBG pO2 mmHg VBG HCO3 mmol/L VBG O2 Saturation % VBG Base Excess mEq/L Barometric Pressure mm/Hg Sodium (136-145) mmol/L Potassium (3.5-5.1) mmol/L Chloride (98-107) mmol/L Carbon Dioxide (21-32) mmol/L Anion Gap (3-11) BUN (7-18) mg/dl Creatinine (0.6-1.4) mg/dl Est Cr Clr Drug Dosing Est GFR ( Amer) Est GFR (Non-Af Amer) BUN/Creatinine Ratio (10-20) Glucose (70-99) mg/dl POC Glucose 322 H 389 H* (70-99) POC Lactic Acid Gm (0.90-1.70) mmol/L Calcium (8.5-10.1) mg/dl Total Bilirubin (0.2-1) mg/dl Direct Bilirubin (0-0.2) mg/dl AST (15-37) U/L ALT (12-78) U/L Alkaline Phosphatase (45-117) U/L Troponin I 0.031 (0-0.045) ng/ml Total Protein (6.4-8.2) gm/dl Albumin (3.4-5.0) gm/dl Globulin (2.5-4.0) gm/dl Albumin/Globulin Ratio (0.9-2) Influenza Type A (PCR) (Neg) Influenza Type B (PCR) (Neg) 07/23/18 07/23/18 07/23/18 Range/Units 03:57 07:13 07:13 WBC 15.18 H (4.8-10.8) K/uL RBC 5.31 (4.7-6.1) M/uL Hgb 15.5 (14.0-18.0) g/dL Hct 44.3 (42-52) % MCV 83.4 (80-100) fL MCH 29.2 (25-34) pg MCHC 35.0 (32-36) g/dL RDW Std Deviation 41.5 (36.4-46.3) fL RDW Coeff of [place] 13.6 (11.5-14.5) % Plt Count 198 (130-400) K/uL MPV 11.8 H (7.4-10.4) fL Immature Gran % (Auto) % Neut % (Auto) % Lymph % (Auto) % [place] % (Auto) % Eos % (Auto) % Baso % (Auto) % Immature Gran # (Auto) (0.00-0.02) K/uL Neut # (Auto) (1.4-6.5) K/uL Lymph # (Auto) (1.2-3.4) K/uL [place] # (Auto) (0.11-0.59) K/uL Eos # (Auto) (0-0.5) K/uL Baso # (Auto) (0-0.2) K/uL PT 11.2 (9.0-12.0) Seconds INR 1.1 (0.9-1.1) VBG pH (7.36-7.41) VBG pCO2 (38-50) mmHg VBG pO2 mmHg VBG HCO3 mmol/L VBG O2 Saturation % VBG Base Excess mEq/L Barometric Pressure mm/Hg Sodium (136-145) mmol/L Potassium (3.5-5.1) mmol/L Chloride (98-107) mmol/L Carbon Dioxide (21-32) mmol/L Anion Gap (3-11) BUN (7-18) mg/dl Creatinine (0.6-1.4) mg/dl Est Cr Clr Drug Dosing Est GFR ( Amer) Est GFR (Non-Af Amer) BUN/Creatinine Ratio (10-20) Glucose (70-99) mg/dl POC Glucose 225 H (70-99) POC Lactic Acid Gm (0.90-1.70) mmol/L Calcium (8.5-10.1) mg/dl Total Bilirubin (0.2-1) mg/dl Direct Bilirubin (0-0.2) mg/dl AST (15-37) U/L ALT (12-78) U/L Alkaline Phosphatase (45-117) U/L Troponin I (0-0.045) ng/ml Total Protein (6.4-8.2) gm/dl Albumin (3.4-5.0) gm/dl Globulin (2.5-4.0) gm/dl Albumin/Globulin Ratio (0.9-2) Influenza Type A (PCR) (Neg) Influenza Type B (PCR) (Neg) 07/23/18 07/23/18 Range/Units 07:13 07:22 WBC (4.8-10.8) K/uL RBC (4.7-6.1) M/uL Hgb (14.0-18.0) g/dL Hct (42-52) % MCV (80-100) fL MCH (25-34) pg MCHC (32-36) g/dL RDW Std Deviation (36.4-46.3) fL RDW Coeff of [place] (11.5-14.5) % Plt Count (130-400) K/uL MPV (7.4-10.4) fL Immature Gran % (Auto) % Neut % (Auto) % Lymph % (Auto) % [place] % (Auto) % Eos % (Auto) % Baso % (Auto) % Immature Gran # (Auto) (0.00-0.02) K/uL Neut # (Auto) (1.4-6.5) K/uL Lymph # (Auto) (1.2-3.4) K/uL [place] # (Auto) (0.11-0.59) K/uL Eos # (Auto) (0-0.5) K/uL Baso # (Auto) (0-0.2) K/uL PT (9.0-12.0) Seconds INR (0.9-1.1) VBG pH (7.36-7.41) VBG pCO2 (38-50) mmHg VBG pO2 mmHg VBG HCO3 mmol/L VBG O2 Saturation % VBG Base Excess mEq/L Barometric Pressure mm/Hg Sodium 135 L (136-145) mmol/L Potassium 4.5 (3.5-5.1) mmol/L Chloride 103 (98-107) mmol/L Carbon Dioxide 23 (21-32) mmol/L Anion Gap 10.0 (3-11) BUN 13 (7-18) mg/dl Creatinine 1.03 (0.6-1.4) mg/dl Est Cr Clr Drug Dosing 54.8 Est GFR ( Amer) 75.9 Est GFR (Non-Af Amer) 65.5 BUN/Creatinine Ratio 12.1 (10-20) Glucose 178 H (70-99) mg/dl POC Glucose 168 H (70-99) POC Lactic Acid Gm (0.90-1.70) mmol/L Calcium 9.6 (8.5-10.1) mg/dl Total Bilirubin 0.5 (0.2-1) mg/dl Direct Bilirubin 0.1 (0-0.2) mg/dl AST 12 L (15-37) U/L ALT 24 (12-78) U/L Alkaline Phosphatase 138 H (45-117) U/L Troponin I 0.024 (0-0.045) ng/ml Total Protein 6.5 (6.4-8.2) gm/dl Albumin 2.7 L (3.4-5.0) gm/dl Globulin 3.8 (2.5-4.0) gm/dl Albumin/Globulin Ratio 0.7 L (0.9-2) Influenza Type A (PCR) (Neg) Influenza Type B (PCR) (Neg) Administered Medications Amiodarone HCl (Cordarone) 200 mg PO DAILY [facility] Stop: 08/22/18 08:59 Last Admin: 07/23/18 08:06 Dose: 200 mg Benzonatate (Tessalon Perle) 100 mg PO TID [facility] Stop: 08/21/18 20:59 Last Admin: 07/23/18 08:07 Dose: 100 mg Admin: 07/22/18 22:11 Dose: 100 mg Finasteride (Proscar) 5 mg PO DAILY [facility] Stop: 08/22/18 08:59 Last Admin: 07/23/18 08:07 Dose: 5 mg Guaifenesin (Mucinex) 1,200 mg PO Q12 [facility] Stop: 08/21/18 20:59 Last Admin: 07/23/18 08:07 Dose: 1,200 mg Admin: 07/22/18 22:12 Dose: 1,200 mg Azithromycin 500 mg/ Dextrose 255 mls @ 125 mls/hr IV DAILY [facility] Stop: 07/29/18 18:29 Last Infusion: 07/23/18 00:33 Dose: 0 mls/hr Admin: 07/22/18 21:35 Dose: 125 mls/hr Ceftriaxone Sodium 2,000 mg/ (Dextrose) 70 mls @ 100 mls/hr IV DAILY [facility]; Protocol Stop: 07/29/18 18:29 Last Infusion: 07/22/18 19:42 Dose: 0 mls/hr Admin: 07/22/18 18:55 Dose: 100 mls/hr Methylprednisolone 60 mg/ (Syringe) 0.96 mls @ 1.5 mls/min IV Q12 [facility] Stop: 08/21/18 20:59 Last Admin: 07/23/18 08:07 Dose: 1.5 mls/min Admin: 07/22/18 22:11 Dose: 1.5 mls/min Insulin Aspart (Novolog Flexpen) 0 units SC ACHS [facility] Stop: 08/21/18 20:59 Last Admin: 07/23/18 08:09 Dose: 14 units Admin: 07/22/18 22:17 Dose: 18 units Insulin Glargine (Lantus Solostar Pen) 0 units SC BID [facility]; Protocol Stop: 08/22/18 08:59 Last Admin: 07/23/18 08:07 Dose: 45 units Levalbuterol HCl (Xopenex 1.25mg/0.5ml Neb) 1.25 mg NEB Q6R [facility] Stop: 08/21/18 19:59 Last Admin: 07/23/18 06:58 Dose: 1.25 mg Admin: 07/23/18 01:48 Dose: 1.25 mg Admin: 07/22/18 20:36 Dose: Not Given Levothyroxine Sodium (Synthroid) 50 mcg PO DAILYBB [facility] Stop: 08/22/18 06:29 Last Admin: 07/23/18 05:27 Dose: 50 mcg Miscellaneous (Order Awaiting Action) 1 ea N/A QS [facility] Stop: 08/22/18 00:00 Last Admin: 07/23/18 08:01 Dose: Not Given Admin: 07/23/18 00:19 Dose: Not Given Miscellaneous (Order Awaiting Action) 1 ea N/A QS [facility] Stop: 08/22/18 00:00 Last Admin: 07/23/18 08:01 Dose: Not Given Admin: 07/23/18 00:19 Dose: Not Given Multivitamins/Minerals (Caltrate Plus) 1 tab PO HS [facility] Stop: 08/21/18 20:59 Last Admin: 07/22/18 22:13 Dose: 1 tab Rosuvastatin Calcium (Crestor) 5 mg PO DAILY [facility] Stop: 08/22/18 08:59 Last Admin: 07/23/18 08:06 Dose: 5 mg Tamsulosin HCl (Flomax) 0.4 mg PO DAILY [facility] Stop: 08/22/18 08:59 Last Admin: 07/23/18 08:07 Dose: 0.4 mg Vitamin D (Vitamin D3) 2,000 units PO DAILY [facility] Stop: 08/22/18 08:59 Last Admin: 07/23/18 08:07 Dose: 2,000 units Discontinued Medications Albuterol (Duoneb) 12 ml NEB ONE ONE Stop: 07/22/18 15:51 Last Admin: 07/22/18 16:39 Dose: 12 ml Levofloxacin/Dextrose (Levaquin/D5w) 750 mg in 150 mls @ 100 mls/hr IV NOW STA Stop: 07/22/18 18:55 Last Admin: 07/22/18 18:24 Dose: Not Given Insulin Aspart (Novolog Flexpen) 0 units SC 0000,0400 [facility] Stop: 07/23/18 04:01 Last Admin: 07/23/18 03:59 Dose: 8 units Admin: 07/23/18 00:19 Dose: 24 units Insulin Glargine (Lantus Solostar Pen) 40 units SC ONE ONE; Protocol Stop: 07/22/18 22:01 Last Admin: 07/22/18 22:17 Dose: 40 units Methylprednisolone (Solumedrol) 125 mg IV NOW STA Stop: 07/22/18 15:51 Last Admin: 07/22/18 16:27 Dose: 125 mg Miscellaneous (Patient's Height And/Or Weight Needed) 1 ea N/A Q2H [facility] Stop: 08/21/18 20:29 Last Admin: 07/22/18 21:35 Dose: 1 ea Imaging Data Radiologist's Impression: Radiology results as stated below per my review and the radiologist's interpretation: XR chest 1V portable HISTORY: 87 years-old Male Cough, SHOB, Hypoxia acute cough with shortness of breath COMPARISON: Chest radiograph 07/16/2018 TECHNIQUE: Portable upright AP view of the chest FINDINGS: Cardiac silhouette is enlarged, unchanged. Calcification of the thoracic aortic arch. Pulmonary vascular congestion. Chronic left hemidiaphragmatic elevation with trace left pleural effusion. Subsegmental bibasilar opacities. Degenerative changes of the shoulders and spine. Calcified mediastinal lymph nodes. Calcium granuloma of the lateral right midlung. IMPRESSION: 1. Cardiomegaly with pulmonary vascular congestion. 2. Chronic left hemidiaphragm elevation with trace left pleural effusion. 3. Subsegmental bibasilar opacities, likely atelectatic. The above report was generated using voice recognition software. It may contain grammatical, syntax or spelling errors. Electronically signed by: Heri Reich M.D. 07/22/2018 5:30 PM ECG Data Attestation: I personally reviewed and interpreted this ECG as follows: Indication: SOB/dyspnea Rate (beats per minute): 74 Rhythm: normal sinus Findings: + other (QTC of 452, no STEMI, ) and + T-wave inversion (anterior/ lateral); no ectopy Comparison ECG Date: from (07-16-18) Change: the following changes noted (TWI new) Blood Pressure Blood Pressure Findings: Normal blood pressure Blood Pressure Disposition: did not require urgent referral Discharge Plan Visit Data *Final* Discharge Date/Time: 07/22/18 19:16 Chief Complaint: Respiratory Problems Stated Complaint: dizzy, Other Complaint: Dizziness ED Provider: Neo Hernandez Discharge Problem: Pneumonia, Respiratory distress, Failure of outpatient treatment, Elevated troponin Patient Disposition: Admitted As Inpatient Discharge Instructions Interventions: ED Discharge Assessment Last Done: 07/22/18 19:16 The scribe's documentation has been prepared under my direction and personally reviewed by me in its entirety. I confirm that the note above accurately reflects all work, treatment, procedures, and medical decision making performed by me.
[2018-07-23 09:57] LABS: Estimated Average Glucose 203 mg/dl
[2018-07-23] MEDS: cefTRIAXone SODIUM 2,000 MG in DEXTROSE 5% 50 ML IV SCH (10:17)
[2018-07-23] MEDS: AZITHROMYCIN 500 MG in DEXTROSE 5% 250 ML IV SCH (11:12)
--- NOTE | 2018-07-23 13:41 | Hospitalist Progress Note ---
Date of Service July 23, 2018 Assessment & Plan (1) Acute respiratory failure with hypoxia: (2) Shortness of breath: (3) COPD (chronic obstructive pulmonary disease): Patient has been admitted with acute exacerbation of COPD. On solumedrol 60 mg IV q12h Will switch in AM to daily. Patient continues to require nasal cannula. Once breath sounds improve, and patient no longer is on oxygen, will consider discharge. Continue antibiotics ceftriaxone and azithromycin IV, -Sputum culture -Flu swab negative -Xopenex nebs, Mucinex, Tessalon Perles, supplemental O2, patient is currently requiring 6 L via NC. (4) Carcinoma of lower lobe, bronchus or lung: (5) Lobectomy of lung: Noted, patient did not receive chemotherapy or XRT, this was over 10 years ago, stable (6) Elevated troponin: -Trend cardiac biomarkers, initial troponin is 0.046. This was the peak. Likely demand ischemia. -Patient denies any cardiac symptoms, EKG was reviewed without signs of ST wave inversion no signs of ischemia, this is likely demand ischemia (7) Chronic a-fib: (8) Chronic anticoagulation: -Continue on home dose of Xarelto (9) HTN (hypertension): Continue on amiodarone 200 mg daily (10) DM II (diabetes mellitus, type II), controlled: -ISS with Accu-Cheks -Last A1C =9.6 on 03/05/18, will recheck with morning labs -Continue NovoLog 70/30 mix 65 units bid for now, likely will need to adjust with high dosing of steroids (11) Hypothyroidism: -Continue Synthroid 50 mcg daily (12) HLD (hyperlipidemia): -Continue rosuvastatin 5 mg daily (13) BPH (benign prostatic hyperplasia): -Continue Flomax daily, Proscar 5 mg daily (14) DVT prophylaxis: Teds, SCDs, continue Xarelto, ambulatory Spent 25 minutes in management of patient. Subjective Patient is very pleasant. He reports breathing better today. He still requires oxygen. Still coughing, bilateral rhonchi noted. Patient states that he does not need oxygen at home. Physical Exam 2 Vital Signs (Past 24 Hours): Last Vital Signs Temp 36.5 C 07/23/18 11:08 Pulse 88 07/23/18 13:36 Resp 16 07/23/18 13:36 BP 103/61 07/23/18 11:08 Pulse Ox 96 07/23/18 13:36 Physical Exam: General: awake, alert, no apparent distress, patient is on oxygen Head: Normocephalic, atraumatic ENT: PERRL, EOMI, oral cavity not examined due to nebulizer treatment. Lungs: coarse breath sounds still heard Cardiac: Regular rate and rhythm, soft systolic ejection murmur grade 2/6, no JVD, normal peripheral pulses, good capillary refill Abdominal: NABS x 4 quadrants, soft, nontender to palpation, no rebound, guarding or tenderness Extremities: Normal inspection, no peripheral edema or erythema, calfs nontender to palpation Psych: Normal mood and affect Neuro: AAO x 3, no gross motor deficits, speech is clear, no peripheral sensory deficits
[2018-07-23] MEDS ORDERED: RIVAROXABAN 15 MG TAB PO SCH (16:30)
[2018-07-23] MEDS: CALCIUM 600MG + VIT D 400 IU TAB PO SCH (20:51)
[2018-07-24] MEDS ORDERED: INSULIN ASPART 100 UNITS/ML 3 ML PEN SC SCH
[2018-07-24] MEDS: LEVALBUTEROL 1.25MG/0.5ML NEB NEB SCH ×3 (01:59→14:01)
[2018-07-24] MEDS: LEVOTHYROXINE SODIUM 50 MCG TABLET PO SCH (05:53)
[2018-07-24 07:52] LABS: Hematocrit (blood only) 45.4 % (42-52); Hemoglobin 15.6 g/dL (14.0-18.0); Mean Corpuscular Hgb Conc 34.4 g/dL (32-36); Mean Corpuscular Volume 84.1 fL (80-100); Mean Platelet Volume 11.9 fL (7.4-10.4); Platelet Count 226 K/uL (130-400); RDW Coefficient of Variation 13.9 % (11.5-14.5); RDW Standard Deviation 42.4 fL (36.4-46.3); White Blood Count 21.74 K/uL (4.8-10.8)
[2018-07-24 08:05] LABS: INR 1.2 (0.9-1.1); Prothrombin Time 12.4 Seconds (9.0-12.0)
[2018-07-24] MEDS: AMIODARONE 200 MG TAB PO SCH (08:16)
[2018-07-24] MEDS: guaiFENesin 600 MG TABCR PO SCH (08:16)
[2018-07-24] MEDS: TAMSULOSIN HCL 0.4 MG CAP PO SCH (08:16)
[2018-07-24] MEDS: ROSUVASTATIN CALCIUM 5 MG TAB PO SCH (08:16)
[2018-07-24] MEDS: FINASTERIDE 5 MG TAB PO SCH (08:17)
[2018-07-24] MEDS: cefTRIAXone SODIUM 2,000 MG in DEXTROSE 5% 50 ML IV SCH (08:17)
[2018-07-24] MEDS: methylPREDNISolone 60 MG in SYRINGE 0 ML IV SCH (08:17)
[2018-07-24] MEDS: CHOLECALCIFEROL 1,000 UNITS TAB PO SCH (08:17)
[2018-07-24] MEDS: BENZONATATE 100 MG CAPSULE PO SCH ×2 (08:17→12:51)
[2018-07-24] MEDS: INSULIN ASPART 100 UNITS/ML 3 ML PEN SC SCH ×2 (08:18→12:52)
[2018-07-24] MEDS: INSULIN GLARGINE SOLOSTAR 100 UNITS/ML 3 ML PEN SC SCH (08:18)
[2018-07-24 08:21] LABS: Albumin Level 2.9 gm/dl (3.4-5.0); BUN Creatinine Ratio 21.4 (10-20); Calcium 9.9 mg/dl (8.5-10.1); Est GFR (African American) 57.3; Est GFR (Non-African American) 49.4; Potassium 4.5 mmol/L (3.5-5.1)
[2018-07-24 08:22] LABS: Albumin Globulin Ratio 0.7 (0.9-2); Bilirubin,Total 0.5 mg/dl (0.2-1); Total Protein 6.9 gm/dl (6.4-8.2)
[2018-07-24] MEDS: AZITHROMYCIN 500 MG in DEXTROSE 5% 250 ML IV SCH (09:05)
--- NOTE | 2018-07-24 13:07 | Pharmacy Report ---
Pharmacy Glycemic Short Note 2 - Date of Service July 24, 2018 - Glycemic Short BSG Results (Last 24 hours): 07/23/18 07/23/18 07/23/18 16:54 20:44 23:56 Glucose POC Glucose 230 H 186 H 161 H 07/24/18 07/24/18 07/24/18 07:34 07:35 11:31 Glucose 197 H POC Glucose 167 H 318 H OUTPATIENT ANTIDIABETIC REGIMEN: * Novolog mix 70/30 65 units BID * A1c = 9.6 % from 03/03/18 - updated A1c pending ASSESSMENT: * See pharmacy glycemic note from 07/23/18 * Blood sugars improving overall, until lunch BSG today of 318mg/dl - CF and CR parameters tightened this morning, but older parameters were used by nursing. * Patient to be discharged today on Prednisone taper * Nursing called to ensure giving 45 units of Novolog for BSG of 318mg/dl and CHO coverage was OK to give- instructed RN to give PLAN FOR INPATIENT GLYCEMIC CONTROL: * Basal insulin * Lantus 45 SQ BID * 40 units for BSG < 160mg/dl * Bolus insulin * NovoLog per scale ACHS or Q6hrs while NPO * Goal Range: Low 110 mg/dL - High 140 mg/dL * TIGHTEN: Correction Factor: 8 mg/dL/unit * TIGHTEN: Nutritional / Prandial insulin per carb ratio of 1 unit per 2 grams CHO consumed * Recheck BSG at 1430 today prior to discharge to ensure BSG improving PLAN FOR DISCHARGE: * While on Prednisone - Novolog 70/30 - 80 units SQ QAM; 65 units SQ QPM, then resume 65 units SQ BID when finished with prednisone and follow up with outpatient provider, A1c 8.7% slightly above goal for patient's age and co- morbidities.
--- NOTE | 2018-07-28 10:13 | Discharge Summary ---
Date of Service July 24, 2018 Admission HPI Per Admitting Provider This is a 87 yo M with PMHx of COPD, hx of lung cancer s/p LLL lobectomy about 10 years ago, remote smoking history x8 years between age 19 and 27, EDER on CPAP , nocturnal hypoxia, atrial fibrillation on chronic anticoagulation, DM Type II , HTN, HLD, gait disturbance, vit d deficiency, hypothyroidism, who presents with acute shortness of breath found to be hypoxic with O2 sats = 87% on RA. Patient notes that his increasing shortness of breath has gone on for about 3 days, but has overall gotten worse within the past 1 month. He reports attempting to take the garbage out about 3 days ago and found it to be significantly difficult and was huffing and puffing by the end of walking down his driveway carrying 3 large bags. Today the patient was unable to participate in ADLs without significant SOB. He denies any fevers, chills or sweats. Patient denies any recent sick contacts. Of note, patient is fairly noncompliant with wearing CPAP at night due to the noise it makes. He does not wear any other supplemental O2. Patient has received 1 hour long nebulizer treatment in the ER and reports feeling significantly better, also received Solu-Medrol 125 mg IV. Principal Diagnosis COPD exacerbation Discharge Exam General: awake, alert, no apparent distress, patient is off oxygen Head: Normocephalic, atraumatic ENT: PERRL, EOMI, oral cavity not examined due to nebulizer treatment. Lungs: coarse breath sounds still heard Cardiac: Regular rate and rhythm, soft systolic ejection murmur grade 2/6, no JVD, normal peripheral pulses, good capillary refill Abdominal: NABS x 4 quadrants, soft, nontender to palpation, no rebound, guarding or tenderness Extremities: Normal inspection, no peripheral edema or erythema, calfs nontender to palpation Psych: Normal mood and affect Neuro: AAO x 3, no gross motor deficits, speech is clear, no peripheral sensory deficits Discharge Data Allergies Allergy/AdvReac Type Severity Reaction Status Date / Time No Known Allergies Allergy Verified 07/16/18 21:11 Consultations 07/22/18 17:30 ED Decision to Admit Stat 07/22/18 19:53 Consult Case Management - Discharge Planning Routine Hospital Course (1) Acute respiratory failure with hypoxia: (2) Shortness of breath: (3) COPD (chronic obstructive pulmonary disease): Patient has been admitted with acute exacerbation of COPD. On solumedrol 60 mg IV q12h Will switch in AM to daily. Patient continues to require nasal cannula. Once breath sounds improve, and patient no longer is on oxygen, will consider discharge. Continue antibiotics ceftriaxone and azithromycin IV, -Sputum culture -Flu swab negative -Xopenex nebs, Mucinex, Tessalon Perles, supplemental O2, patient is currently requiring 6 L via NC. On day of discharge, patient no longer required oxygen. And ambulated on room air, saturating above 90. Patient given script to complete antibiotics as outpatieng with steroid taper. (4) Carcinoma of lower lobe, bronchus or lung: (5) Lobectomy of lung: Noted, patient did not receive chemotherapy or XRT, this was over 10 years ago, stable (6) Elevated troponin: -Trend cardiac biomarkers, initial troponin is 0.046. This was the peak. Likely demand ischemia. -Patient denies any cardiac symptoms, EKG was reviewed without signs of ST wave inversion no signs of ischemia, this is likely demand ischemia (7) Chronic a-fib: (8) Chronic anticoagulation: -Continue on home dose of Xarelto (9) HTN (hypertension): Continue on amiodarone 200 mg daily (10) DM II (diabetes mellitus, type II), controlled: -ISS with Accu-Cheks -Last A1C =9.6 on 03/05/18, will recheck with morning labs -Continue NovoLog 70/30 mix 65 units bid for now, likely will need to adjust with high dosing of steroids (11) Hypothyroidism: -Continue Synthroid 50 mcg daily (12) HLD (hyperlipidemia): -Continue rosuvastatin 5 mg daily (13) BPH (benign prostatic hyperplasia): -Continue Flomax daily, Proscar 5 mg daily (14) DVT prophylaxis: Teds, SCDs, continue Xarelto, ambulatory Total Time Total Time Spent Total Time Spent (In Minutes): 32 Total Time Includes: Examination of the Patient, Discharge Planning and Medication Reconciliation Discharge Plan Discharge Items Patient Disposition: Home - Self-Care Reason For Visit: SHORTNESS OF BREATH,COPD Discharge Diagnosis: COPD exacerbation Discharge Goals: Decrease discomfort Activity: Resume your previous activity Non-emergency contact: Primary Care Provider Call non-emergency contact if: you have any medication questions Follow-up/Referrals: Alexa Latham CRNP [Nurse Practitioner] - 07/30/18 11:00 am (Please, follow up with Alexa MORENO on July 30 at 11:00 am. *If you need to change this appointment, call the office at [phone].) Diet: Carb Consistent or DM2 Addtl Provider Instructions: Followup with PCP in 1-2 weeks. While on prednisone take 80 units of Novolog in the AM and 65 units in the PM. Prescriptions: New guaifenesin [Mucinex] 600 mg Tablet Extended Release 12hr 1,200 mg PO Q12 Qty: 5 RF: 0 prednisone 10 mg tablet 10 mg PO UD Qty: 20 RF: 0 Continue ipratropium-albuterol 0.5 mg-3 mg(2.5 mg base)/3 mL Solution For Nebulization 3 ml INHALATION Q4 PRN (Reason: Shortness Of Breath Or Wheezing) RF: 0 amiodarone [Pacerone] 200 mg tablet 200 mg PO DAILY RF: 0 bimatoprost 0.03 % Drops 1 drp OPB PM RF: 0 tamsulosin [Flomax] 0.4 mg capsule 0.4 mg PO DAILY RF: 0 benzonatate [Tessalon Perles] 100 mg Capsule 100 mg PO TID PRN (Reason: Cough) RF: 0 levothyroxine [Synthroid] 50 mcg tablet 50 mcg PO DAILY RF: 0 albuterol sulfate [Ventolin HFA] 90 mcg/actuation Hfa Aerosol Inhaler 2 puff INHALATION Q4 PRN (Reason: Shortness Of Breath Or Wheezing) RF: 0 finasteride [Proscar] 5 mg tablet 5 mg PO DAILY RF: 0 insulin asp prt-insulin aspart [Novolog Mix 70-30 U-100 Insuln] 100 unit/mL ( 70-30) solution 65 unit subcut BIDM RF: 0 rosuvastatin [Crestor] 5 mg tablet 5 mg PO DAILY RF: 0 cholecalciferol (vitamin D3) [Vitamin D3] 1,000 unit Tablet 2,000 unit PO DAILY RF: 0 rivaroxaban [Xarelto] 15 mg tablet 15 mg PO DAILY RF: 0 vit C,Y-Aw-sfwpj-lutein-zeaxan [PreserVision AREDS-2] 331-894-04-1 mg-unit-mg- mg Capsule 1 tab PO DAILY RF: 0 Ca-D3-mag bn-xbcd-krc-joanne-bor [Calcium 600-D3 Plus] 600 mg calcium- 800 unit- 50 mg Tablet 1 tab PO HS RF: 0 Visit Report Forms: [facility] Stand-Alone Forms: [facility] Discharge Orders: Discharge Order (Routine); Ordered 07/24/18 Ordered By: Ole Flores Admission Data Admit Date/Time: 07/22/18 18:07 Attending Provider: Ole Flores Admit Provider: Nahomi Carson Primary Care Provider: Olman Latham Other Providers: Nahomi Carson Service: Telemetry Other Interventions: Discharge Summary Assessment (RN) Last Done: 07/24/18 13:22 DC Date/Time DO NOT enter until pt leaves facility: 07/24/18 16:10
== END 2018-07-24 16:10 | disposition home or self-care (01) | DRG 189 ==
LOC: ED 14:17 → 2N 18:07 → SUATTDRO 18:07 → 2N 19:16

== ENCOUNTER 2019-04-11 01:46 | Inpatient (IN) ==
[2019-04-11 02:51] LABS: Basophils # (auto) 0.08 K/uL (0-0.2); Eosinophils # (auto) 0.26 K/uL (0-0.5); Eosinophils % (auto) 3.4 %; Hematocrit (blood only) 47.3 % (42-52); Hemoglobin 16.6 g/dL (14.0-18.0); Immature Granulocytes # (auto) 0.03 K/uL (0.00-0.02); Immature Granulocytes % (auto) 0.4 %; Lymphocytes % (auto) 9.1 %; Mean Corpuscular Hemoglobin 29.6 pg (25-34); Mean Corpuscular Hgb Conc 35.1 g/dL (32-36); Mean Corpuscular Volume 84.3 fL (80-100); Mean Platelet Volume 12.1 fL (7.4-10.4); Monocytes # (auto) 0.87 K/uL (0.11-0.59); Monocytes % (auto) 11.3 %; Neutrophils # (auto) 5.77 K/uL (1.4-6.5); Neutrophils % (auto) 74.8 %; Platelet Count 149 K/uL (130-400); RDW Coefficient of Variation 13.8 % (11.5-14.5); RDW Standard Deviation 42.3 fL (36.4-46.3); Red Blood Count 5.61 M/uL (4.7-6.1); White Blood Count 7.71 K/uL (4.8-10.8)
[2019-04-11 03:12] LABS: Albumin Level 3.4 gm/dl (3.4-5.0); BUN Creatinine Ratio 11.5 (10-20); Calcium 9.3 mg/dl (8.5-10.1); Creatinine Clr Calc Pharmacy 58.2 ml/min; Est GFR (Non-African American) 68.2; Potassium 3.7 mmol/L (3.5-5.1)
[2019-04-11 03:22] LABS: Bilirubin,Total 0.6 mg/dl (0.2-1); Globulin 3.4 gm/dl (2.5-4.0); Thyroid Stimulating Hormone 4.58 uIu/ml (0.300-4.500); Total Protein 6.8 gm/dl (6.4-8.2)
[2019-04-11 03:35] LABS: T4 Free Thyroxine 1.31 ng/dl (0.8-1.6)
[2019-04-11 04:23] LABS: Appearance Urine Clear (Clear); Bilirubin Urine Negative (Negative); Blood Urine Negative (Negative); Color Urine Yellow; Glucose Urine UA 2+ (Negative); Ketones Urine Negative (Negative); Leukocyte Esterase Urine Negative (Negative); Nitrite Urine Negative (Negative); Protein Urine Negative (Negative); Specific Gravity Urine 1.016 (1.000-1.030); Urobilinogen Urine Negative (Negative)
[2019-04-11] MEDS ORDERED: ALBUTEROL HFA 8 GM INHALER INH PRN (05:08)
--- NOTE | 2019-04-11 05:20 | History & Physical Report ---
Date of Service April 11, 2019 Assessment & Plan (1) Right leg weakness: Pt is a 88yo M PMH COPD, h/o lung ca s/p LLL lobectomy 2009, afib on chronic AC, T2DM poorly controlled, HTN, DLD, gait disturbance, hypothyroid, colon ca s/p colectomy with stoma admitted with acute on chronic R leg weakness and pain with ambulatory dysfunction. R leg weakness/R leg pain -Will order CT pelvis to ensure no acute process -Suspect this is likely more MSK vs neurologic -Bone on bone involvement of R knee; perhaps ?pelvic strain -Consider further workup as seen fit -Pt declines further pain meds at this time -PT/OT when appropriate, will likely need walker on DC. Had prev used cane T2DM, uncontrolled -Will order Hb A1c on 04/12 (No repeat of labs on 04/11) -Pt on 70/30 80 qAM, 60qPM -Have converted to ISS with basal -Continue to monitor Chronic/Stable medical issues: Chronic Afib: cont xarelto COPD: Cont home regimen HTN: Cont home regimen DLD: Cont home regimen BPH: Cont home regimen Hypothyroid: TSH close to target range, cont home regimen Lobectomy of lung: remote smoking hx, lung ca Colostomy in situ: H/o colon cancer, skin around site appears irritated, but stoma itself appears normal Dispo: med/surg Code: Full DVTP: xarelto (2) Right leg pain: (3) Diabetes type 2, uncontrolled: (4) Dyslipidemia: (5) BPH (benign prostatic hyperplasia): (6) HLD (hyperlipidemia): (7) HTN (hypertension): (8) Hypothyroidism: (9) Chronic a-fib: (10) COPD (chronic obstructive pulmonary disease): (11) Lobectomy of lung: (12) Colostomy in place: History of Present Illness Chief Complaint: R leg pain and weakness Primary Care Provider: Cheryl Erickson PA-C Pt is a 88yo M PMH COPD, h/o lung ca s/p LLL lobectomy 2009, afib on chronic AC, T2DM poorly controlled, HTN, DLD, gait disturbance, hypothyroid, colon ca s/p colectomy with stoma who presents with acute on chronic R leg weakness and pain. He notes the weakness and pain has been present about 6 months, and he had started using a cane for mobility. In the last week, he notes acute worsening of his symptoms. 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 was behind him and "caught" him, helping to bring him to the ground. Has been using tylenol for pain relief without much help. In the ER, xrays were obtained which showed no acute fracture, with bone on bone involvement of the R knee, official read pending. Head CT was obtained to r/o acute head bleed/stroke and was negative. Initial labs were WNL and vitals were stable. Allergies Allergy/AdvReac Type Severity Reaction Status Date / Time atorvastatin AdvReac Verified 04/11/19 05:39 Home Medications Home Medications Medication Instructions Recorded Confirmed Type Xarelto 15 mg PO DAILY 07/16/18 04/11/19 History albuterol sulfate [Ventolin HFA] 2 puff INHALATION Q4 PRN 07/16/18 04/11/19 History amiodarone [Pacerone] 200 mg PO DAILY 07/16/18 04/11/19 History benzonatate [Tessalon Perles] 100 mg PO TID PRN 07/16/18 04/11/19 History bimatoprost 1 drp OPB PM PRN 07/16/18 04/11/19 History cholecalciferol (vitamin D3) 2,000 unit PO DAILY 07/16/18 04/11/19 History [Vitamin D3] finasteride [Proscar] 5 mg PO DAILY 07/16/18 04/11/19 History ipratropium-albuterol 3 ml INHALATION Q4 PRN 07/16/18 04/11/19 History levothyroxine [Synthroid] 50 mcg PO DAILY 07/16/18 04/11/19 History tamsulosin [Flomax] 0.4 mg PO DAILY 07/16/18 04/11/19 History guaifenesin [Mucinex] 1,200 mg PO Q12 #5 tab 07/24/18 04/11/19 Rx rosuvastatin 5 mg tablet 5 mg PO DAILY #90 tab 02/01/19 04/11/19 Rx blood sugar diagnostic strips #10 ea 02/08/19 04/11/19 History insulin syringe U-100 with needle #10 ea 02/08/19 04/11/19 History 1 mL 31 gauge x 5/" lancets 33 gauge #100 ea 02/08/19 04/11/19 History vit C 250 mg-E 200 unit-zinc 40 1 tab PO BID 02/08/19 04/11/19 History mg-copper 1 hp-mizvtk-iizkfg capsule insulin aspar prt-insulin aspart See Rx Instructions SUBCUT .COMPLEX 02/19/19 04/11/19 History 100 unit/mL (70-30) subcutaneous soln Past Med/Surg History Medical History Diabetes type 2, uncontrolled Dyslipidemia Elevated troponin BPH (benign prostatic hyperplasia) HLD (hyperlipidemia) HTN (hypertension) Hypothyroidism Chronic anticoagulation Chronic a-fib Shortness of breath COPD (chronic obstructive pulmonary disease) 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) Fever (Resolved) Urosepsis (Resolved 07/23/13) Altered mental status (Resolved) Atrial fibrillation with rapid ventricular response (Resolved) Carcinoma of lower lobe, 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) Lobectomy of lung (Resolved 05/06/12) Acute respiratory failure with hypoxia CHF (congestive heart failure) Hypervolemia Surgical History Ileostomy in place Family History Other Diabetes Heart disease Hypertension Kidney disease Social History Preferred Language: Ghanaian Communication Ability: Effective Woolen Tester Required: No Beliefs That Will Affect Care: None marital status: Current Living Situation: Spouse Current Living Situation Comment: House current occupational status: retired Other Information That Helps Us Care for You: No Feels Safe at Home: Yes Safety Concerns: Feels Safe At This Time Smoking Status: Former smoker Tobacco Type: cigarettes ; Do You Dip or Chew Tobacco: No ; Hx Alcohol Use: Yes Alcohol type: other Hx Substance Use: No Review of Systems Review of Systems: All systems reviewed & are unremarkable except as noted in HPI & below Constitutional: + body aches and + weakness Respiratory: no cough and no dyspnea Cardiovascular: + edema; no chest pain and no syncope Gastrointestinal: no abdominal pain, no nausea and no vomiting Musculoskeletal: + joint pain, + myalgia, + muscle weakness and + body aches Neurologic: + gait abnormality, + falls and + localized weakness; no loss of sensation, no numbness and no paresthesia Physical Exam Constitutional: WD/WN, vitals as above well groomed; no acute distress Eyes: PERRL, conjunctivae normal, anicteric sclerae ENMT: external ear and nose normal, oropharynx normal Neck: normal visual inspection Respiratory: normal respiratory effort, lungs clear to auscultation (diminished sounds LLL) Cardiovascular: Rate/Rhythm: regular rate and + irregularly irregular E xtremities: + edema (1+ to shins) Gastrointestinal (Abdomen): normal bowel sounds, soft, nontender, no hepatosplenomegaly (Stoma patent without abnormality; surrounding skin appears sloughed) Musculoskeletal: Extremities: + muscle atrophy and + lower leg abnormality (R leg diffusely weaker compared to L) Right; + abnormal strength Neurovascular supply to legs/feet intact Skin: no rashes, warm and dry Neurologic: PERRL, EOMI, accommodation nl, no face palsy, no dysarthria Psychiatric: A+Ox3, euthymic affect Results & Data Vital Signs (Past 12 Hours) Vital Signs Temp Pulse Pulse Resp BP BP Pulse Ox 04/11/19 04:18 69 18 173/98 H 97 04/11/19 03:11 70 18 166/89 H 95 04/11/19 02:41 66 16 139/82 94 04/11/19 01:50 97.7 F 71 20 150/77 H 95 Laboratory Results 04/11/19 04/11/19 04/11/19 Range/Units 04:15 02:39 02:39 WBC 7.71 (4.8-10.8) K/uL RBC 5.61 (4.7-6.1) M/uL Hgb 16.6 (14.0-18.0) g/dL Hct 47.3 (42-52) % MCV 84.3 (80-100) fL MCH 29.6 (25-34) pg MCHC 35.1 (32-36) g/dL RDW Std Deviation 42.3 (36.4-46.3) fL RDW Coeff of [place] 13.8 (11.5-14.5) % Plt Count 149 (130-400) K/uL MPV 12.1 H (7.4-10.4) fL Immature Gran % (Auto) 0.4 % Neut % (Auto) 74.8 % Lymph % (Auto) 9.1 % [place] % (Auto) 11.3 % Eos % (Auto) 3.4 % Baso % (Auto) 1.0 % Immature Gran # (Auto) 0.03 H (0.00-0.02) K/uL Neut # (Auto) 5.77 (1.4-6.5) K/uL Lymph # (Auto) 0.70 L (1.2-3.4) K/uL [place] # (Auto) 0.87 H (0.11-0.59) K/uL Eos # (Auto) 0.26 (0-0.5) K/uL Baso # (Auto) 0.08 (0-0.2) K/uL Sodium 136 (136-145) mmol/L Potassium 3.7 (3.5-5.1) mmol/L Chloride 101 (98-107) mmol/L Carbon Dioxide 29 (21-32) mmol/L Anion Gap 6.0 (3-11) BUN 11 (7-18) mg/dl Creatinine 0.99 (0.6-1.4) mg/dl Est Cr Clr Drug Dosing 58.2 ml/min Est GFR ( Amer) 79.0 Est GFR (Non-Af Amer) 68.2 BUN/Creatinine Ratio 11.5 (10-20) Glucose 124 H (70-99) mg/dl Calcium 9.3 (8.5-10.1) mg/dl Total Bilirubin 0.6 (0.2-1) mg/dl AST 18 (15-37) U/L ALT 21 (12-78) U/L Alkaline Phosphatase 89 (45-117) U/L Total Protein 6.8 (6.4-8.2) gm/dl Albumin 3.4 (3.4-5.0) gm/dl Globulin 3.4 (2.5-4.0) gm/dl Albumin/Globulin Ratio 1.0 (0.9-2) TSH 4.580 H (0.300-4.500) uIu/ml Free T4 1.31 (0.8-1.6) ng/dl Urine Color Yellow Urine Appearance Clear (Clear) Urine pH 7.0 (4.5-7.5) Ur Specific [place] 1.016 (1.000-1.030) Urine Protein Negative (Negative) Urine Glucose (UA) 2+ H (Negative) Urine Ketones Negative (Negative) Urine Blood Negative (Negative) Urine Nitrite Negative (Negative) Urine Bilirubin Negative (Negative) Urine Urobilinogen Negative (Negative) Ur Leukocyte Esterase Negative (Negative) Code Status & VTE Plan Code Status Full VTE Prophylaxis Plan VTE Prophylaxis will be ordered: Yes Supervising Physician Co-Signing Physician Notes Attending addendum: I have physically seen this patient, have supervised the medical residents activities, and agree with the H&P unless as otherwise noted. Assessment and Plan: Right leg weakness and pain- Order CT pelvis and right hip to assess for possible occult fracture. Right knee with severe osteoarthritis. Consult PT/OT. No suggestion of a neurologic process at this time. Diabetes mellitus- Continue usual dosing of 7030 as noted. Placed on Accu-Cheks before meals and at bedtime with NovoLog coverage per scale. Remainder of orders and notations as noted. PG Care Time/CCT Total # of Minutes Spent Total Time Spent with Patient: Total time spent is greater than 50% in coordination of care (as documented) at patient's floor/unit and/or counseling patient: Resident Activity Tracking Resident Involvement: Resident Care Provided Care Provided: Adult Hospital Medicine
[2019-04-11] MEDS ORDERED: GLUCOSE 40% GEL 15 GM TUBE PO PRN (06:31)
[2019-04-11] MEDS ORDERED: POLYETHYLENE (MIRALAX) 17 GM PACK PO PRN (06:31)
[2019-04-11] MEDS ORDERED: GLUCAGON FOR INJ 1 MG VIAL SQ PRN (06:31)
[2019-04-11] MEDS ORDERED: DEXTROSE 50% 50 ML SYRINGE IV PRN (06:31)
[2019-04-11] MEDS ORDERED: MAGNESIUM HYDROXIDE SUSP 30 ML UDC PO PRN (06:31)
[2019-04-11] MEDS ORDERED: ALUMINUM/MAGNESIUM SUSP 30 ML UDC PO PRN (06:31)
[2019-04-11] MEDS ORDERED: GLUCOSE 10 TABS/TUBE PO PRN (06:31)
[2019-04-11] MEDS ORDERED: ONDANSETRON INJ 2 MG/ML 2 ML VIAL IV PRN (06:31)
--- NOTE | 2019-04-11 07:03 | XRay Report ---
XR femur RT 2V routine CLINICAL HISTORY: 88 years-old Male presenting with right proximal femur pain. TECHNIQUE: Frontal and lateral views of the right femur were obtained. COMPARISON: None. FINDINGS: Right hip joint and right knee joint congruent. Small knee joint effusion may be present as well as o steophytosis in the patellofemoral compartment. No evidence of significant degenerative change of the hip joint. Osteopenia is suspected. Allowing for this, no acute fracture or malalignment. Visualized portion of the bony pelvis intact. Trace atherosclerotic calcifications. IMPRESSION: 1. No acute osseous injury. 2. Small right knee joint effusion and degenerative changes in the patellofemoral compartment. Electronically signed by: Santana Amor M.D. 04/11/2019 7:01 AM
--- NOTE | 2019-04-11 07:21 | CT Scan Report ---
CT head/brain wo con CLINICAL HISTORY: 88 years-old Male presenting with right leg weakness. TECHNIQUE: Multidetector CT imaging of the head was performed without the use of intravenous contrast . IV contrast: None. One or more dose lowering techniques were used consistent with the principles of ALARA (as low as reasonably achievable), including automatic exposure control, mA or kV adjustment t o individual patient size, and/or use of iterative reconstruction. COMPARISON: 12/31/2015. CT DOSE (mGy.cm): The estimated cumulative dose is 614.27 mGy.cm. 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 Proportional ventricular and sulcal prominence, likely age-related parenchymal volume loss. Redemonst ration of the 9 mm hyperdense colloid cyst in the region of the foramen of [place]. Redemonstration of the arachnoid cyst along the left frontal convexity near the vertex. No hemorrhage. Periventricular a nd subcortical white matter hypoattenuation, nonspecific but likely indicative of chronic small vesse l ischemic change. No acute territorial infarct. No mass effect or midline shift. No extra-axial flui d collection. Opacification of the right maxillary sinus with sclerosis of the sinus woods. Calvarium intact. IMPRESSION: 1. No significant change compared to the prior study. No acute intracranial abnormality. 2. Chronic sinusitis of the right maxillary sinus. Electronically signed by: Santana Amor M.D. 04/11/2019 7:20 AM
[2019-04-11] MEDS: ACETAMINOPHEN 325 MG TAB PO PRN ×2 (07:27→15:30)
--- NOTE | 2019-04-11 07:49 | Emergency Department Note ---
Entered by Jimmie Live acting as a scribe for Liset Zuñiga DO History of Present Illness General Chief complaint: Leg Injury/Pain Time Seen by Provider: 04/11/19 01:55 Source: patient History of Present Illness Onset (ago): day(s) (yesterday) Location: lower extremity (right mid-thin) Pain Consistency: + constant Maximum Pain Intensity: 3 Relieved By: + medication (Tylenol - minimal) Associated symptoms: + denies other symptoms (knee pain, ankle pain, and pain to the back of his leg) and + weakness The patient is an 88 y/o male who presents to the ED w/ CC of constant right, mid-thigh pain beginning yesterday. The patient's states he has been having balance trouble for over a year now. She reports when evaluated by his PCP, he is told it is from his older age. The notes he developed severe pain his right mid-thigh yesterday that made it even harder for him to walk. She states this evening he made it to the bottom of the stairs and then completely lost balance from weakness of his legs. The reports she has been giving him Tylenol for minimal pain relief, and his last dose with at 2129. She notes he has a history of a-fib and takes Xarelto. The patient states it is difficult for him to support himself. He reports he called an ambulance because he fell over and could not stand up. The patient notes he has not seen his PCP in over 6 months. He states a history of DM, colon cancer, a colectomy, and having an ileostomy. The patient denies knee pain, ankle pain, and pain to the back of his leg. Home Medications Home Medications Medication Instructions Recorded Confirmed Type Xarelto 15 mg PO DAILY 07/16/18 04/11/19 History albuterol sulfate [Ventolin HFA] 2 puff INHALATION Q4 PRN 07/16/18 04/11/19 History amiodarone [Pacerone] 200 mg PO DAILY 07/16/18 04/11/19 History benzonatate [Tessalon Perles] 100 mg PO TID PRN 07/16/18 04/11/19 History bimatoprost 1 drp OPB PM PRN 07/16/18 04/11/19 History cholecalciferol (vitamin D3) 2,000 unit PO DAILY 07/16/18 04/11/19 History [Vitamin D3] finasteride [Proscar] 5 mg PO DAILY 07/16/18 04/11/19 History ipratropium-albuterol 3 ml INHALATION Q4 PRN 07/16/18 04/11/19 History levothyroxine [Synthroid] 50 mcg PO DAILY 07/16/18 04/11/19 History tamsulosin [Flomax] 0.4 mg PO DAILY 07/16/18 04/11/19 History guaifenesin [Mucinex] 1,200 mg PO Q12 #5 tab 07/24/18 04/11/19 Rx rosuvastatin 5 mg tablet 5 mg PO DAILY #90 tab 02/01/19 04/11/19 Rx blood sugar diagnostic strips #10 ea 02/08/19 04/11/19 History insulin syringe U-100 with needle #10 ea 02/08/19 04/11/19 History 1 mL 31 gauge x 5/16" lancets 33 gauge #100 ea 02/08/19 04/11/19 History vit C 250 mg-E 200 unit-zinc 40 1 tab PO BID 02/08/19 04/11/19 History mg-copper 1 dp-rprewj-[id number] capsule insulin aspar prt-insulin aspart See Rx Instructions SUBCUT .COMPLEX 02/19/19 04/11/19 History 100 unit/mL (70-30) subcutaneous soln Allergies Allergy/AdvReac Type Severity Reaction Status Date / Time atorvastatin AdvReac Verified 04/11/19 05:39 Past Med/Surg History Medical History Diabetes type 2, uncontrolled Dyslipidemia Elevated troponin BPH (benign prostatic hyperplasia) HLD (hyperlipidemia) HTN (hypertension) Hypothyroidism Chronic anticoagulation Chronic a-fib Shortness of breath COPD (chronic obstructive pulmonary disease) 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) Fever (Resolved) Urosepsis (Resolved 07/23/13) Altered mental status (Resolved) Atrial fibrillation with rapid ventricular response (Resolved) Carcinoma of lower lobe, 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) Lobectomy of lung (Resolved 05/06/12) Acute respiratory failure with hypoxia CHF (congestive heart failure) Hypervolemia Surgical History Ileostomy in place Family History Other Diabetes Heart disease Hypertension Kidney disease Social History Preferred Language: [place] Communication Ability: Effective Rehabilitation Caseworker Required: No Beliefs That Will Affect Care: None marital status: Current Living Situation: Spouse Current Living Situation Comment: House current occupational status: retired Other Information That Helps Us Care for You: No Feels Safe at Home: Yes Safety Concerns: Feels Safe At This Time Smoking Status: Former smoker Tobacco Type: cigarettes ; Do You Dip or Chew Tobacco: No ; Hx Alcohol Use: Yes Alcohol type: other Hx Substance Use: No Review of Systems See HPI for pertinent positives & negatives. and A total of 10 systems reviewed and were otherwise negative Physical Exam Vital Signs Vital Signs - 24 hr 04/11/19 02:41 04/11/19 03:11 04/11/19 04:18 Pulse Rate [Apical] 66 70 69 Pulse Rhythm [Apical] Regular Pulse Strength [Apical] Normal Respiratory Rate 16 18 18 Respiratory Effort / Characteristics Non-Labored Spontaneous Respiratory Depth Normal Respiratory Pattern Regular Blood Pressure [Left Arm] 139/82 166/89 H 173/98 H Blood Pressure Mean [Left Arm] 101 114 123 Blood Pressure Position [Left Arm] Sitting Sitting Pulse Oximetry 94 95 97 Oxygen Delivery Method Room Air Room Air Room Air HEENT: Head - normocephalic and atraumatic. Pupils are equal, round, and reactive to light. Extraocular eye muscles are intact and sclera are anicteric. Ears - bilaterally patent canals with noninjected tympanic membranes and no evidence of hemotympanum. Nose - moist nasal mucosa without discharge. Mouth - moist buccal mucosa. Oropharynx is nonerythematous and there is no tonsillar exudate or edema noted. Neck: Supple; no JVD, nuchal rigidity, cervical lymphadenopathy, or auscultated bruits. Heart: Regular rate and rhythm. There is a normal S1 and S2 with no murmurs, clicks, or gallops appreciated. Lungs: Clear to auscultation bilaterally with no wheezes, rales, or rhonchi. Abdomen: Soft, completely nontender, nondistended, with good bowel sounds. There are no palpable pulsatile masses or hepatosplenomegaly. There is no guarding, rigidity, or rebound noted. Ileostomy in the RLQ. Multiple scars about the mid- abdomen. Extremities: No evidence of cyanosis, clubbing, or edema. There are easily palpable peripheral pulses. Right femur has no obvious abnormality at the hip, knee or skin. Neuro:The patient is awake and alert, oriented to day, time, and place. Muscle strength is 5/5 in the upper extremities and left lower extremity. Right lower extremity muscle strength is 4/5. The patient has equal head baggage porter strength and equal pedal push and pull. There are no cerebellar signs. Course 0157: The patient was evaluated in room B07. A complete history and physical examination were performed. Nursing notes and previous electronic medical records were reviewed. IV lock was established and labs were drawn as above. The patient had a plain x-ray of the right femur which was unremarkable. He declined wanting anything for pain. He had a twelve-lead EKG and will go for CT scan of the brain. 245: The patient went for CT scan of the brain. He is now resting comfortably. I reviewed the results with the patient and his . 0410: I attempted to reevaluate the patient. He was in the restroom. 0434: Upon reevaluation, I discussed findings and results with him. He verbalized agreement of the treatment plan. Nursing staff states that the patient did seem to have weakness in the right lower extremity when getting to the bathroom. 0524: I spoke with Dr. Keen of the [facility] Hospitalist Service. The patient will be evaluated for further management and care. Administered Medications Acetaminophen (Tylenol) 650 mg PO Q4H PRN PRN Reason: pain/fever Stop: 05/11/19 06:30 Last Admin: 04/11/19 15:30 Dose: 650 mg Documented by: [id number] Admin: 04/11/19 07:27 Dose: 650 mg Documented by: [id number] Amiodarone HCl (Cordarone) 200 mg PO DAILY [facility] Stop: 05/11/19 08:59 Last Admin: 04/11/19 09:03 Dose: 200 mg Documented by: [id number] Finasteride (Proscar) 5 mg PO DAILY [facility] Stop: 05/11/19 08:59 Last Admin: 04/11/19 09:04 Dose: 5 mg Documented by: [id number] Gadobutrol (Gadavist 65ml) 8.5 ml IV ONCE PRN PRN Reason: Interaction Checking Stop: 04/15/19 17:22 Last Admin: 04/11/19 17:24 Dose: 8.5 ml Documented by: [id number] Insulin Aspart (Novolog Flexpen) 0 units SC ACHS [facility] Stop: 05/11/19 07:29 Last Admin: 04/11/19 20:55 Dose: Not Given Documented by: [id number] Cosigned by: [id number] Admin: 04/11/19 18:43 Dose: 12 units Documented by: [id number] Cosigned by: [id number] Admin: 04/11/19 12:59 Dose: 13 units Documented by: [id number] Cosigned by: [id number] Admin: 04/11/19 09:07 Dose: 13 units Documented by: [id number] Cosigned by: [id number] Insulin Glargine (Lantus Solostar Pen) 49 units SC BID [facility] Stop: 05/11/19 08:59 Last Admin: 04/11/19 20:54 Dose: 49 units Documented by: [id number] Cosigned by: [id number] Admin: 04/11/19 09:06 Dose: 49 units Documented by: [id number] Cosigned by: [id number] Rivaroxaban (Xarelto) 15 mg PO DAILY [facility] Stop: 05/11/19 08:59 Last Admin: 04/11/19 09:04 Dose: 15 mg Documented by: [id number] Rosuvastatin Calcium (Crestor) 5 mg PO DAILY [facility] Stop: 05/11/19 08:59 Last Admin: 04/11/19 09:04 Dose: 5 mg Documented by: [id number] Tamsulosin HCl (Flomax) 0.4 mg PO DAILY [facility] Stop: 05/11/19 08:59 Last Admin: 04/11/19 09:03 Dose: 0.4 mg Documented by: [id number] Discontinued Medications Levothyroxine Sodium (Synthroid) 50 mcg PO DAILY [facility] Stop: 05/11/19 08:59 Last Admin: 04/11/19 09:04 Dose: 50 mcg Documented by: [id number] Medical Decision Making Differential Diagnosis Differential diagnosis includes: stroke, occult fracture, osteoarthritis of the right hip, lumbar disc herniation, cauda equina syndrome, lumbar radiculopathy, sciatica. Medical Records Attestation: I reviewed the patient's medical records. Home Medications Current Medication List: was personally reviewed by me Laboratory Data Attestation: I reviewed the patient's lab results. Result diagrams: 04/11/19 02:39 04/11/19 02:39 Lab Results 04/11/19 04/11/19 04/11/19 Range/Units 02:39 02:39 04:15 WBC 7.71 (4.8-10.8) K/uL RBC 5.61 (4.7-6.1) M/uL Hgb 16.6 (14.0-18.0) g/dL Hct 47.3 (42-52) % MCV 84.3 (80-100) fL MCH 29.6 (25-34) pg MCHC 35.1 (32-36) g/dL RDW Std Deviation 42.3 (36.4-46.3) fL RDW Coeff of [place] 13.8 (11.5-14.5) % Plt Count 149 (130-400) K/uL MPV 12.1 H (7.4-10.4) fL Immature Gran % (Auto) 0.4 % Neut % (Auto) 74.8 % Lymph % (Auto) 9.1 % [place] % (Auto) 11.3 % Eos % (Auto) 3.4 % Baso % (Auto) 1.0 % Immature Gran # (Auto) 0.03 H (0.00-0.02) K/uL Neut # (Auto) 5.77 (1.4-6.5) K/uL Lymph # (Auto) 0.70 L (1.2-3.4) K/uL [place] # (Auto) 0.87 H (0.11-0.59) K/uL Eos # (Auto) 0.26 (0-0.5) K/uL Baso # (Auto) 0.08 (0-0.2) K/uL Sodium 136 (136-145) mmol/L Potassium 3.7 (3.5-5.1) mmol/L Chloride 101 (98-107) mmol/L Carbon Dioxide 29 (21-32) mmol/L Anion Gap 6.0 (3-11) BUN 11 (7-18) mg/dl Creatinine 0.99 (0.6-1.4) mg/dl Est Cr Clr Drug Dosing 58.2 ml/min Est GFR ( Amer) 79.0 Est GFR (Non-Af Amer) 68.2 BUN/Creatinine Ratio 11.5 (10-20) Glucose 124 H (70-99) mg/dl Calcium 9.3 (8.5-10.1) mg/dl Total Bilirubin 0.6 (0.2-1) mg/dl AST 18 (15-37) U/L ALT 21 (12-78) U/L Alkaline Phosphatase 89 (45-117) U/L Total Protein 6.8 (6.4-8.2) gm/dl Albumin 3.4 (3.4-5.0) gm/dl Globulin 3.4 (2.5-4.0) gm/dl Albumin/Globulin Ratio 1.0 (0.9-2) TSH 4.580 H (0.300-4.500) uIu/ml Free T4 1.31 (0.8-1.6) ng/dl Urine Color Yellow Urine Appearance Clear (Clear) Urine pH 7.0 (4.5-7.5) Ur Specific [place] 1.016 (1.000-1.030) Urine Protein Negative (Negative) Urine Glucose (UA) 2+ H (Negative) Urine Ketones Negative (Negative) Urine Blood Negative (Negative) Urine Nitrite Negative (Negative) Urine Bilirubin Negative (Negative) Urine Urobilinogen Negative (Negative) Ur Leukocyte Esterase Negative (Negative) Imaging Data Attestation: I personally reviewed and interpreted this imaging study as follows: My Impression: XR femur RT 2V routine: No obvious abnormality or fracture. Radiologist's Impression: Radiology results as stated below per my review and the [facility] radiologist's interpretation: CT HEAD: 12/31/15 No evidence of acute intracranial abnormality. Stable chronic findings: Volume loss. Small vessel disease. 9 mm colloid cyst. Left frontal arachnoid cyst. Stable opacified right maxillary sinus with mucoperiosteal thickening/chronic sinusitis. Few opacified ethmoid air cells, similar to the prior. Radiologist: Shalini Davis M.D. Study ready at 03:06 and initial results transmitted at 03:12 ECG Data Attestation: I personally reviewed and interpreted this ECG as follows: Indication: weakness Rate (beats per minute): 67 Rhythm: normal sinus Findings: no PAC, no PVC, no ST depression (Leads I and AVL), no ST elevation, no acute ischemic change and no ectopy Comparison ECG Date: from (07/22/18) Change: no significant change Blood Pressure Blood Pressure Findings: Elevated blood pressure Blood Pressure Disposition: further management by hospitalist CRYSTAL Narrative The patient is an 88 y/o male who presents to the ED w/ CC of constant right, mid-thigh pain beginning yesterday. Patient has also developed increasing weakness in the right lower extremity to the point that he is at risk of falling while ambulating. Laboratory work-up was unremarkable. Plain x-ray of the right thigh was negative CT scan of the brain was negative for an acute stroke. Remain concerned with the patient's right lower extremity weakness. He will require additional work-up. I discussed the case with the [facility] Hospitalist and they will evaluate for further management. We talked about the possibility of an acute stroke versus lumbar spine pathology as a cause of his weakness and right lower extremity pain. Impression & Plan Right leg weakness, Hypothyroidism Discharge Plan Visit Data *Final* Discharge Date/Time: 04/11/19 05:52 Chief Complaint: Leg Injury/Pain ED Provider: Liset Zuñiga Discharge Problem: Right leg weakness, Hypothyroidism Patient Disposition: Admitted As Inpatient Discharge Instructions Interventions: ED Discharge Assessment Last Done: 04/11/19 05:52 Discharge Problem: Hypothyroidism Qualifiers: Hypothyroidism type: unspecified Qualified Code(s): E03.9 - Hypothyroidism, unspecified The scribe's documentation has been prepared under my direction and personally reviewed by me in its entirety. I confirm that the note above accurately reflects all work, treatment, procedures, and medical decision making performed by me.
[2019-04-11] MEDS ORDERED: LEVOTHYROXINE SODIUM 50 MCG TABLET PO SCH (09:00)
[2019-04-11] MEDS: TAMSULOSIN HCL 0.4 MG CAP PO SCH (09:03)
[2019-04-11] MEDS: AMIODARONE 200 MG TAB PO SCH (09:03)
[2019-04-11] MEDS: ROSUVASTATIN CALCIUM 5 MG TAB PO SCH (09:04)
[2019-04-11] MEDS: RIVAROXABAN 15 MG TAB PO SCH (09:04)
[2019-04-11] MEDS: FINASTERIDE 5 MG TAB PO SCH (09:04)
[2019-04-11] MEDS: INSULIN GLARGINE SOLOSTAR 100 UNITS/ML 3 ML PEN SC SCH ×2 (09:06→20:54)
[2019-04-11] MEDS: INSULIN ASPART 100 UNITS/ML 3 ML PEN SC SCH ×4 (09:07→20:55)
--- NOTE | 2019-04-11 09:45 | CT Scan Report ---
CT pelvis wo con CLINICAL HISTORY: 88 years-old Male presenting with R leg weakness, difficulty walking. TECHNIQUE: Multidetector CT of the pelvis was performed without the use of intravenous contrast. IV c ontrast: None. One or more dose lowering techniques were used consistent with the principles of ALARA (as low as reasonably achievable), including automatic exposure control, mA or kV adjustment to luz vidual patient size, and/or use of iterative reconstruction. COMPARISON: Plain radiographs of the right femur performed earlier the same day and CT of abdomen and pelvis from 11/17/2017. CT DOSE (mGy.cm): The estimated cumulative dose is 634.31 mGycm. FINDINGS: Registration Rep topogram: Unremarkable. Limited evaluation of the soft tissues of the pelvis demonstrates bladder wall thickening and multipl e bladder diverticula likely chronic bladder outlet obstruction in the setting of prostatomegaly. Postsurgical changes of abdominoperineal resection with total colectomy and a right lower quadrant il eostomy. 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 No free fluid or gas i n the pelvis. Soft tissue in the presacral region likely represents granulation tissue in the postsur gical setting. Infiltration of the subcutaneous tissue of the intra-abdominal wall and overlying skin thickening likely related to medication administration. Diastases of the abdominal wall with small v entral hernias. An open defect may be present versus overlying closed scarring in the ventral abdomen . Atherosclerosis of the iliac vessels. No gross lymphadenopathy allowing for noncontrast technique. Multiple renal cysts as well as an indeterminate soft tissue density 3.7 cm lesion at the lower pole of the right kidney. This previously appeared as a complicated cyst on prior CT and is unchanged in s ize. Bilateral fat-containing inguinal hernias, right greater than left. Musculature normal. No evidence of intramuscular hematoma. No extrapleural pelvic hematoma. Osteopenia. Degenerative changes of the lower lumbar spine and right sacroiliac joint. The sacrum and pelvis are intact. Femoral necks intact. No advanced degenerative changes of the hip joints. IMPRESSION: 1. No acute osseous injury or advanced degenerative changes. No CT findings to explain the patient's difficulty walking. 2. 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 3. Postsurgical changes of abdominoperineal resection with total colectomy and right lower quadrant ileostomy. No bowel obstruction. 4. Extensive postsurgical changes of the intra-abdominal wall. 5. Indeterminate right lower pole renal lesion, previously characterized as a complicated cyst and u nchanged in size. This overall suggests benignity though a slow-growing cystic neoplasm cannot be exc luded. This could be followed with renal ultrasound. Electronically signed by: Santana Amor M.D. 04/11/2019 9:44 AM
[2019-04-11] MEDS ORDERED: GADOBUTROL 65ML VIAL IV PRN (17:23)
--- NOTE | 2019-04-11 18:23 | Magnetic Resonance Report ---
MR lumbar spine wo/w con CLINICAL HISTORY: 88 years-old Male presenting with acute on chronic L1 radiculopathy, right leg weak ness, difficulty walking, history of colon cancer, possible discitis. TECHNIQUE: Multisequence, multiplanar MR imaging of the lumbar spine was performed before and after t he administration of intravenous contrast. IV contrast: 8.5 mL of Gadavist. COMPARISON: Correlation made to CT of the abdomen and pelvis from 2018. FINDINGS: Localizer images: Prominent left renal cysts. Bladder wall trabeculation. Normal lumbar lordosis. Fatty endplate changes at L4-5 (Modic type II). Remaining vertebral bodies de monstrate normal height, alignment, and bone marrow signal intensity. No abnormal enhancement of the vertebral bodies on postcontrast imaging. Mild diffuse intervertebral disc desiccation with mild heig ht loss at L3-4 and L4-5. Additional multilevel degenerative changes further detail below: L1-2: No significant neural foraminal or spinal canal narrowing. L2-3: Mild facet arthropathy. Mild bilateral neural foraminal narrowing. No significant spinal canal narrowing. L3-4: Trace disc bulge and mild facet arthropathy and ligamentum flavum thickening mild circumferenti al effacement of the thecal sac and moderate effacement of the lateral recesses. Moderate bilateral n eural foraminal narrowing with abutment of the bilateral exiting L3 nerve roots. L4-5: Mild disc bulge and more significant facet arthropathy and ligamentum flavum thickening. Modera te to severe circumferential effacement of the thecal sac with trace if any residual CSF. Severe righ t and moderate to severe left neural foraminal narrowing. Mass effect on the exiting right and abutme nt of the exiting left L4 nerve roots. L5-S1: Facet arthropathy resulting in mild bilateral neural foraminal narrowing. No significant spina l canal narrowing. Spinal cord terminates in good position at L1. Cauda equina normal in morphology apart from severe cr owding at L4-5. No buckle morphology of the cauda equina. No evidence of a epidural collection. No ab normal enhancement of the spinal nerve roots on postcontrast imaging. No paraspinal muscle edema. Non specific subcutaneous edema in the lumbar region. Visualized portion of the sacrum intact. Flow voids within the vasculature preserved. Multiple prominent left renal cysts evident. IMPRESSION: 1. No evidence of discitis osteomyelitis. No evidence of osseous metastatic involvement of the lumba r spine. 2. Multilevel degenerative changes with moderate to severe spinal canal narrowing at L4-5. The lack of a buckled morphology of the cauda equina argues against cauda equina impingement. Correlate clinic ally. 3. Multilevel mass effect on exiting nerve roots with multilevel neural foraminal narrowing as detai led above, most severe again at L4-5. Electronically signed by: Santana Amor M.D. 04/11/2019 6:21 PM
--- NOTE | 2019-04-11 22:22 | Hospitalist Progress Note ---
Date of Service April 11, 2019 Assessment & Plan (1) Atrophy of quadriceps femoris muscle: Wasting with reduce quadriceps strength. Suspect lack of nerve innervation and given time span of two years suspect poor reversibility. However since he has a more acute deterioration in the last 3 days will get MRI lumbar spine with IV contrast to assess for more acute issue such as discitis. Consult ortho spine or neuro pending MRI lumbar spine results. Ideally could clarify nerve involvement would need EMG/NCS testing which could be done outpatient. Suspect femoral nerve vs. L2-4 radiculopathy. No specific sensory deficit noted to support diagnosis of radiculopathy. Physical therapy. No pain causing his symptoms on exam. (2) Diabetes type 2, uncontrolled: A1C pending Lantus 49 units BID Novolog: correction 11mg/dL/unit, carb ratio 1 unit / 4g, goal 110-140 Adequate control today. (3) BPH (benign prostatic hyperplasia): Continue tamsulosin and finasteride. (4) HLD (hyperlipidemia): Continue rosuvastatin (5) Hypothyroidism: TSH 4.58. Continue home dose of levothyroxine (6) COPD (chronic obstructive pulmonary disease): No maintenance medications. No current exacerbation. (7) Lobectomy of lung: Prior history of lung cancer. (8) Colostomy in place: Hx colon cancer. Erythema around colostomy. Patient reports erythema is chronic. Stoma appears healthy. Recommend colostomy nurse evaluation tomorrow. (9) Paroxysmal atrial fibrillation: Currently in normal sinus rhythm. Continue amiodarone and Xarelto. (10) Renal cyst: f/u outpatient renal US (11) DVT prophylaxis: Xarelto for pAF Code - full Dispo - PT/OT, likely will need rehabilitation Subjective Revisited history with patient. He reports 2 years of right leg weakness with no specific etiology diagnosed. Physical Exam Constitutional: WD/WN, vitals as above well groomed; no acute distress Eyes: PERRL, conjunctivae normal, anicteric sclerae ENMT: external ear and nose normal, oropharynx normal Neck: normal visual inspection Respiratory: normal respiratory effort, lungs clear to auscultation Auscultation: + diminished lung sounds (Left basal) Cardiovascular: Rate/Rhythm: regular rate Heart Sounds: no murmur Extremities: + edema (1+ to shins) Gastrointestinal (Abdomen): normal bowel sounds, soft, nontender, no hepatosplenomegaly (Stoma patent without abnormality; surrounding skin appears sloughed) Musculoskeletal: Extremities: + muscle atrophy (Right quadriceps > left) and + lower leg abnormality Right (hip flex, knee extension 3/5, knee flex, ankle dorsiflex/plantarflex 4+/5) Hip: normal ROM of hip (no pain on int/ext rotation hip) and no joint line tenderness Knee: no effusion, normal ROM of knee and no joint line tenderness Skin: peristoma dark erythema, not warm Neurologic: CN's II-XI intact bilaterally, + focal motor deficit and awake Motor/Sensory: normal movement, no pronator drift and no sensory deficit Psychiatric: A+Ox3, euthymic affect Results & Data Vital Signs (Past 12 Hours) Vital Signs Temp Pulse Resp BP Pulse Ox 04/11/19 15:01 97.5 F L 70 18 150/76 H 94 PG Care Time/CCT Total # of Minutes Spent Total Time Spent with Patient: Total time spent is greater than 50% in coordination of care (as documented) at patient's floor/unit and/or counseling patient:
[2019-04-12] MEDS: ACETAMINOPHEN 325 MG TAB PO PRN (02:52)
[2019-04-12] MEDS: LEVOTHYROXINE SODIUM 50 MCG TABLET PO SCH (05:47)
[2019-04-12 06:45] LABS: Basophils # (auto) 0.06 K/uL (0-0.2); Basophils % (auto) 0.6 %; Eosinophils # (auto) 0.22 K/uL (0-0.5); Eosinophils % (auto) 2.1 %; Hematocrit (blood only) 46.6 % (42-52); Hemoglobin 16.3 g/dL (14.0-18.0); Immature Granulocytes # (auto) 0.02 K/uL (0.00-0.02); Immature Granulocytes % (auto) 0.2 %; Lymphocytes % (auto) 5.7 %; Mean Corpuscular Hemoglobin 29.4 pg (25-34); Mean Corpuscular Volume 84.1 fL (80-100); Mean Platelet Volume 11.5 fL (7.4-10.4); Monocytes # (auto) 1.01 K/uL (0.11-0.59); Monocytes % (auto) 9.6 %; Neutrophils # (auto) 8.56 K/uL (1.4-6.5); Neutrophils % (auto) 81.8 %; Platelet Count 139 K/uL (130-400); RDW Coefficient of Variation 13.8 % (11.5-14.5); RDW Standard Deviation 42.2 fL (36.4-46.3); Red Blood Count 5.54 M/uL (4.7-6.1); White Blood Count 10.47 K/uL (4.8-10.8)
[2019-04-12 07:25] LABS: Albumin Level 3.2 gm/dl (3.4-5.0); BUN Creatinine Ratio 14.8 (10-20); Calcium 8.7 mg/dl (8.5-10.1); Creatinine Clr Calc Pharmacy 57.2 ml/min; Est GFR (Non-African American) 68.2; Potassium 3.8 mmol/L (3.5-5.1)
[2019-04-12 07:29] LABS: Bilirubin Direct 0.3 mg/dl (0-0.2); Bilirubin,Total 1.5 mg/dl (0.2-1); Total Protein 6.4 gm/dl (6.4-8.2)
[2019-04-12 07:30] LABS: Estimated Average Glucose 209 mg/dl; Hemoglobin A1C 8.9 % (4.5-5.6)
[2019-04-12] MEDS: TAMSULOSIN HCL 0.4 MG CAP PO SCH (08:43)
[2019-04-12] MEDS: FINASTERIDE 5 MG TAB PO SCH (08:43)
[2019-04-12] MEDS: AMIODARONE 200 MG TAB PO SCH (08:43)
[2019-04-12] MEDS: RIVAROXABAN 15 MG TAB PO SCH (08:43)
[2019-04-12] MEDS: ROSUVASTATIN CALCIUM 5 MG TAB PO SCH (08:43)
[2019-04-12] MEDS: INSULIN ASPART 100 UNITS/ML 3 ML PEN SC SCH ×4 (08:47→21:58)
[2019-04-12] MEDS: INSULIN GLARGINE SOLOSTAR 100 UNITS/ML 3 ML PEN SC SCH ×2 (08:47→23:19)
[2019-04-12] MEDS ORDERED: INFLUENZA ADMINISTRATION CHARGE ONE (14:30)
[2019-04-12] MEDS ORDERED: INFLUENZA VACCINE HIGH DOSE 65+ 0.5 ML SYR IM ONE (14:30)
[2019-04-12] MEDS ORDERED: PNEUMOCOCCAL ADMINISTRATION CHARGE ONE (14:30)
[2019-04-12] MEDS ORDERED: PNEUMOCOCCAL POLYSACCHARIDES 25 MCG/0.5 ML VIAL/SYR IM ONE (14:30)
[2019-04-12] MEDS ORDERED: MISSING PHYSICIAN SIGNATURE ON ORDER SCH (16:00)
[2019-04-12] MEDS: CARBOHYDRATES FOR HYPOGLYCEMIA PO PRN ×2 (21:58→22:24)
--- NOTE | 2019-04-12 22:03 | Hospitalist Progress Note ---
Date of Service April 12, 2019 Assessment & Plan (1) Atrophy of quadriceps femoris muscle: Wasting with reduce quadriceps strength. Suspect lack of nerve innervation and given time span of two years suspect poor reversibility. However since he has a more acute deterioration in the last 3 days will get MRI lumbar spine with IV contrast to assess for more acute issue such as discitis. Consult ortho spine or neuro pending MRI lumbar spine results. Ideally could clarify nerve involvement would need EMG/NCS testing which could be done outpatient. Suspect femoral nerve vs. L2-4 radiculopathy. No specific sensory deficit noted to support diagnosis of radiculopathy. Physical therapy. No pain causing his symptoms on exam. awaiting input from ortho. Consulted PT/OT. Patient will likely require neuro consult as outpatient due to his confusion. (2) Diabetes type 2, uncontrolled: A1C 8.9 Lantus 49 units BID Novolog: correction 11mg/dL/unit, carb ratio 1 unit / 4g, goal 110-140 Adequate control today. (3) BPH (benign prostatic hyperplasia): Continue tamsulosin and finasteride. (4) HLD (hyperlipidemia): Continue rosuvastatin (5) Hypothyroidism: TSH 4.58. Continue home dose of levothyroxine (6) COPD (chronic obstructive pulmonary disease): No maintenance medications. No current exacerbation. (7) Lobectomy of lung: Prior history of lung cancer. (8) Colostomy in place: Hx colon cancer. Erythema around colostomy. Patient reports erythema is chronic. Stoma appears healthy. Recommend colostomy nurse evaluation tomorrow. (9) Paroxysmal atrial fibrillation: Currently in normal sinus rhythm. Continue amiodarone and Xarelto. (10) Renal cyst: f/u outpatient renal US (11) DVT prophylaxis: Xarelto for pAF Code - full Dispo - PT/OT, likely will need rehabilitation Subjective Again revisted history with patient. It appear he has fatuma having gradual loss of strength in his right leg in the past 4 years, up to the point where patient is almost falling. This led him to come to the hospital. Patient continues to be confused today and does not provide more history. Review of Systems Review of Systems: All systems reviewed & are unremarkable except as noted in HPI & below Physical Exam Physical Exam: Constitutional: WD/WN, vitals as above well groomed; no acute distress Eyes: PERRL, conjunctivae normal, anicteric sclerae ENMT: external ear and nose normal, oropharynx normal Neck: normal visual inspection Respiratory: normal respiratory effort, lungs clear to auscultation Auscultation: + diminished lung sounds (Left basal) Cardiovascular: Rate/Rhythm: regular rate Heart Sounds: no murmur Extremities: + edema (1+ to shins) Gastrointestinal (Abdomen): normal bowel sounds, soft, nontender, no hepatosplenomegaly (Stoma patent without abnormality; surrounding skin appears sloughed) Musculoskeletal: Extremities: + muscle atrophy (Right quadriceps > left) and + lower leg abnormality Right (hip abd: 4/5, hip add: 5/5, hip flex 4/5, knee extension 4/5, knee flex5/5, ankle dorsiflex/plantarflex 4+/5) Hip: normal ROM of hip (no pain on int/ext rotation hip) and no joint line tenderness Knee: no effusion, normal ROM of knee and no joint line tenderness Skin: peristoma dark erythema, not warm Neurologic: CN's II-XI intact bilaterally, + focal motor deficit and awake Motor/Sensory: normal movement, no pronator drift and no sensory deficit Psychiatric: Awake, euthymic affect Results & Data Vital Signs (Past 12 Hours) Vital Signs Temp Pulse Resp BP Pulse Ox 04/12/19 15:08 36.4 C L 71 18 98/59 L 93 PG Care Time/CCT Total # of Minutes Spent Total Time Spent with Patient: Total time spent is greater than 50% in coordination of care (as documented) at patient's floor/unit and/or counseling patient:
[2019-04-13] MEDS: ACETAMINOPHEN 325 MG TAB PO PRN (02:27)
[2019-04-13] MEDS: LEVOTHYROXINE SODIUM 50 MCG TABLET PO SCH (05:32)
[2019-04-13] MEDS: TAMSULOSIN HCL 0.4 MG CAP PO SCH (07:25)
[2019-04-13] MEDS: ROSUVASTATIN CALCIUM 5 MG TAB PO SCH (07:25)
[2019-04-13] MEDS: RIVAROXABAN 15 MG TAB PO SCH (07:25)
[2019-04-13] MEDS: FINASTERIDE 5 MG TAB PO SCH (07:25)
[2019-04-13] MEDS: AMIODARONE 200 MG TAB PO SCH (07:26)
[2019-04-13] MEDS: INSULIN GLARGINE SOLOSTAR 100 UNITS/ML 3 ML PEN SC SCH ×2 (09:02→20:42)
[2019-04-13] MEDS: INSULIN ASPART 100 UNITS/ML 3 ML PEN SC SCH ×4 (09:03→20:40)
[2019-04-13] MEDS: ALBUT/IPRATROP 3MG/0.5MG NEB 3 ML VIAL INH PRN (14:45)
--- NOTE | 2019-04-13 22:51 | Hospitalist Progress Note ---
Date of Service April 13, 2019 Assessment & Plan (1) Atrophy of quadriceps femoris muscle: Wasting with reduce quadriceps strength. Suspect lack of nerve innervation and given time span of two years suspect poor reversibility. However since he has a more acute deterioration in the last 3 days will get MRI lumbar spine with IV contrast to assess for more acute issue such as discitis. Consult ortho spine or neuro pending MRI lumbar spine results. Ideally could clarify nerve involvement would need EMG/NCS testing which could be done outpatient. Suspect femoral nerve vs. L2-4 radiculopathy. No specific sensory deficit noted to support diagnosis of radiculopathy. Physical therapy. No pain causing his symptoms on exam. This appears mainly from DJD of his lumbar spine, likely spinal stenosis Continue to await input from ortho. Made second call out to ortho. Consulted PT/OT. Patient will likely require neuro consult as outpatient due to his confusion. (2) Diabetes type 2, uncontrolled: A1C 8.9 Lantus 49 units BID Novolog: correction 11mg/dL/unit, carb ratio 1 unit / 4g, goal 110-140 Adequate control today. (3) BPH (benign prostatic hyperplasia): Continue tamsulosin and finasteride. (4) HLD (hyperlipidemia): Continue rosuvastatin (5) Hypothyroidism: TSH 4.58. Continue home dose of levothyroxine (6) COPD (chronic obstructive pulmonary disease): No maintenance medications. No current exacerbation. (7) Lobectomy of lung: Prior history of lung cancer. (8) Colostomy in place: Hx colon cancer. Erythema around colostomy. Patient reports erythema is chronic. Stoma appears healthy. Recommend colostomy nurse evaluation tomorrow. (9) Paroxysmal atrial fibrillation: Currently in normal sinus rhythm. Continue amiodarone and Xarelto. (10) Renal cyst: f/u outpatient renal US (11) DVT prophylaxis: Xarelto for pAF Code - full Dispo - PT/OT, likely will need rehabilitation Subjective Patient is an 88 yo male who reports no new symptoms. He continues to have weakness in his right lower extremity. He also reports some back pain as well. Review of Systems Review of Systems: All systems reviewed & are unremarkable except as noted in HPI & below Physical Exam Physical Exam: Constitutional: WD/WN, vitals as above well groomed; no acute distress Eyes: PERRL, conjunctivae normal, anicteric sclerae ENMT: external ear and nose normal, oropharynx normal Neck: normal visual inspection Respiratory: normal respiratory effort, lungs clear to auscultation Cardiovascular: Rate/Rhythm: regular rate Heart Sounds: no murmur Extremities: + edema (1+ to shins) Gastrointestinal (Abdomen): normal bowel sounds, soft, nontender, no hepatosplenomegaly (Stoma patent without abnormality; surrounding skin appears sloughed) Musculoskeletal: Extremities: + muscle atrophy (Right quadriceps > left) and + lower leg abnormality Right (hip abd: 4/5, hip add: 5/5, hip flex 4/5, knee extension 4/5, knee flex5/5, ankle dorsiflex/plantarflex 4+/5) Hip: normal ROM of hip (no pain on int/ext rotation hip) and no joint line tenderness Knee: no effusion, normal ROM of knee and no joint line tenderness Skin: peristoma dark erythema, not warm Neurologic: CN's II-XI intact bilaterally, + focal motor deficit and awake Motor/Sensory: normal movement, no pronator drift and no sensory deficit Psychiatric: Awake, euthymic affect Results & Data Vital Signs (Past 12 Hours) Vital Signs Temp Pulse Resp BP Pulse Ox 04/13/19 15:23 36.4 C L 75 17 125/75 93 04/13/19 14:47 78 16 98 PG Care Time/CCT Total # of Minutes Spent Total Time Spent with Patient: Total time spent is greater than 50% in coordination of care (as documented) at patient's floor/unit and/or counseling patient:
[2019-04-14] MEDS: ACETAMINOPHEN 325 MG TAB PO PRN (01:40)
[2019-04-14] MEDS: CARBOHYDRATES FOR HYPOGLYCEMIA PO PRN ×2 (04:47→05:07)
[2019-04-14] MEDS: LEVOTHYROXINE SODIUM 50 MCG TABLET PO SCH (06:08)
[2019-04-14] MEDS: AMIODARONE 200 MG TAB PO SCH (08:32)
[2019-04-14] MEDS: RIVAROXABAN 15 MG TAB PO SCH (08:33)
[2019-04-14] MEDS: ROSUVASTATIN CALCIUM 5 MG TAB PO SCH (08:33)
[2019-04-14] MEDS: FINASTERIDE 5 MG TAB PO SCH (08:33)
[2019-04-14] MEDS: TAMSULOSIN HCL 0.4 MG CAP PO SCH (08:33)
[2019-04-14] MEDS: INSULIN ASPART 100 UNITS/ML 3 ML PEN SC SCH ×4 (08:52→21:00)
[2019-04-14] MEDS: INSULIN GLARGINE SOLOSTAR 100 UNITS/ML 3 ML PEN SC SCH (08:52)
[2019-04-14] MEDS: ALBUT/IPRATROP 3MG/0.5MG NEB 3 ML VIAL INH PRN ×2 (09:32→18:10)
--- NOTE | 2019-04-14 14:05 | Orthopedic Consultation ---
Date of Consultation April 14, 2019 Assessment & Plan (1) Lumbar stenosis: Assessment severe lumbar spinal stenosis per plan at this time his severe spinal stenosis at L4-5 clearly could contribute to his strength deficits and inability to ambulate. We may want to consider a lumbar decompression at this level. I will continue to converse with the patient. He is on anticoagulation therapy. This would need to be held for any surgical intervention. Present on Admission?: Yes History of Present Illness Reason for Consultation: Bilateral leg weakness and pain right greater than left. Attending Physician: Ole Flores History of Present Illness This is a very pleasant 88-year-old male has noted marked decline in ability to ambulate. He describes weakness affecting the right lower extremity much more than left lower extremity. He states the symptoms have been present for well over a year with a marked decline over the past several months. He denies any precipitating trauma fall or event. He denies any loss of bowel bladder function. He denies any true radicular pain. Allergies Allergy/AdvReac Type Severity Reaction Status Date / Time atorvastatin AdvReac Verified 04/11/19 05:39 Home Medications Home Medications Medication Instructions Recorded Confirmed Type Xarelto 15 mg PO DAILY 07/16/18 04/11/19 History albuterol sulfate [Ventolin HFA] 2 puff INHALATION Q4 PRN 07/16/18 04/11/19 History amiodarone [Pacerone] 200 mg PO DAILY 07/16/18 04/11/19 History benzonatate [Tessalon Perles] 100 mg PO TID PRN 07/16/18 04/11/19 History bimatoprost 1 drp OPB PM PRN 07/16/18 04/11/19 History cholecalciferol (vitamin D3) 2,000 unit PO DAILY 07/16/18 04/11/19 History [Vitamin D3] finasteride [Proscar] 5 mg PO DAILY 07/16/18 04/11/19 History ipratropium-albuterol 3 ml INHALATION Q4 PRN 07/16/18 04/11/19 History levothyroxine [Synthroid] 50 mcg PO DAILY 07/16/18 04/11/19 History tamsulosin [Flomax] 0.4 mg PO DAILY 07/16/18 04/11/19 History guaifenesin [Mucinex] 1,200 mg PO Q12 #5 tab 07/24/18 04/11/19 Rx rosuvastatin 5 mg tablet 5 mg PO DAILY #90 tab 02/01/19 04/11/19 Rx blood sugar diagnostic strips #10 ea 02/08/19 04/11/19 History insulin syringe U-100 with needle #10 ea 02/08/19 04/11/19 History 1 mL 31 gauge x 5/16" lancets 33 gauge #100 ea 02/08/19 04/11/19 History vit C 250 mg-E 200 unit-zinc 40 1 tab PO BID 02/08/19 04/11/19 History mg-copper 1 ek-xkmpnz-auuyha capsule insulin aspar prt-insulin aspart See Rx Instructions SUBCUT .COMPLEX 02/19/19 History 100 unit/mL (70-30) subcutaneous soln Patient History Medical History Diabetes type 2, uncontrolled Dyslipidemia Elevated troponin BPH (benign prostatic hyperplasia) HLD (hyperlipidemia) HTN (hypertension) Hypothyroidism Chronic anticoagulation Chronic a-fib Shortness of breath COPD (chronic obstructive pulmonary disease) 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) Fever (Resolved) Urosepsis (Resolved 07/23/13) Altered mental status (Resolved) Atrial fibrillation with rapid ventricular response (Resolved) Carcinoma of lower lobe, 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) Lobectomy of lung (Resolved 05/06/12) Acute respiratory failure with hypoxia CHF (congestive heart failure) Hypervolemia Surgical History Ileostomy in place Family History Other Diabetes Heart disease Hypertension Kidney disease Social History Preferred Language: Turkmen Communication Ability: Effective Home Service Advisor Required: No Beliefs That Will Affect Care: None marital status: Current Living Situation: Spouse Current Living Situation Comment: House current occupational status: retired Other Information That Helps Us Care for You: No Feels Safe at Home: Yes Safety Concerns: Feels Safe At This Time Smoking Status: Former smoker Tobacco Type: cigarettes ; Do You Dip or Chew Tobacco: No ; Hx Alcohol Use: Yes Alcohol type: other Hx Substance Use: No Physical Exam Physical Exam: Patient is in the chair at the bedside. I did assist him in standing. He had marked difficulty in doing so. Vent exam does reveal no gross tension signs reasonable plantar flexion dorsiflexion quadricep bilaterally sensory symmetric and intact. Results & Data Vital Signs (Past 12 Hours) Vital Signs Temp Pulse Resp BP Pulse Ox 04/14/19 09:37 69 16 96 04/14/19 06:48 36.4 C L 63 16 126/74 95
[2019-04-14] MEDS ORDERED: PHARMACY GLYCEMIC MGMT CONSULT PRN (18:03)
[2019-04-14] MEDS ORDERED: INFLUENZA ADMINISTRATION CHARGE ONE (19:00)
[2019-04-14] MEDS ORDERED: INFLUENZA VIRUS QUAD VACCINE 0.5 ML SYR IM ONE (19:00)
[2019-04-14] MEDS ORDERED: INSULIN GLARGINE SOLOSTAR 100 UNITS/ML 3 ML PEN SC ONE (21:00)
--- NOTE | 2019-04-14 21:03 | Pharmacy Report ---
Glycemic Control Consultation - Date of Service April 14, 2019 - Scope Scope: Glycemic Pharmacist consulted by Dr Flores on 04/14/19 for glycemic control and to write orders per [facility] inpatient glycemic control protocol - Objective Weight: 86.4 kg Accuchecks BSG (last 24hrs): 04/13/19 04/14/19 04/14/19 20:31 04:45 04:46 POC Glucose 191 H 64 L* 66 L* 04/14/19 04/14/19 04/14/19 05:01 05:23 08:13 POC Glucose 61 L* 93 110 H 04/14/19 04/14/19 12:02 17:16 POC Glucose 188 H 122 H HbA1c: Hemoglobin A1c 8.9 % (4.5-5.6) H 04/12/19 06:29 - Recent Pertinent Medications Outpatient Anti-diabetic Regimen: * 70/30 mix insulin ~70 units with breakfast, 50 units with lunch * A1c = 8.9 % 04/12 The patient is currently receiving: * Basal insulin: Lantus 49 units BID * Correctional Insulin: Novolog Correction per scale ACHS Goal Range: Low 110 mg/dL - High 140 mg/dL Correction Factor: 11 mg/dL/unit * Prandial insulin: Per carb ratio of 1 unit per 4 grams CHO consumed Risk Factors for Insulin Resistance: * Diet: T2DM - Assessment & Plan Assessment & Plan: ASSESSMENT: * 88 year old admitted with R leg weakness. PMHx significant for hypothyroidism, hld, BPH, afib. Also hx of type 2 diabetes managed on novolog mix insulin at home. Called to confirm dosing as listed as two different doses on medication rec, however per nurse patient confused and would not know doses. May need to follow up when family member present to confirm dosing regimen * Patient received total of 140 units of insulin yesterday, of which 98 units w ere basal. Fasting BSG this AM 04/14 low at 64 mg/dL. Previous day 04/12 patient received 114 units of insulin, with 74 units basal, still experiencing low that evening at HS * Pharmacy consulted this 04/14 evening - BSG at dinner time is 122 mg/dL, received 49 units of basal this AM and also yesterday evening. * Feel that current regimen is heavily basal loaded, will decrease basal insulin for tonight to help avoid low BSG. Estimate patient likely to require about ~120 units per day, will split 50/50 with basal/bolus PLAN FOR INPATIENT GLYCEMIC CONTROL: * Basal insulin * Lantus 10 units tonight x 1 * Lantus 30 units BID starting 926 AM * Bolus insulin * NovoLog per scale ACHS or Q6hrs while NPO * Goal Range: Low 120 mg/dL - High 160 mg/dL * Correction Factor: 11 mg/dL/unit * Nutritional / Prandial insulin per carb ratio of 1 unit per 4 grams CHO consumed * Please note that the plan above was derived based on current level of insulin resistance and hospital stress. These recommendations are appropriate for inpatient admission only. Plan of care upon discharge will need to be reassessed to avoid potential outpatient hypo/hyperglycemia. Thank you.
--- NOTE | 2019-04-14 23:01 | Hospitalist Progress Note ---
Date of Service April 14, 2019 Assessment & Plan (1) Atrophy of quadriceps femoris muscle: Wasting with reduce quadriceps strength. Suspect lack of nerve innervation and given time span of two years suspect poor reversibility. However since he has a more acute deterioration in the last 3 days will get MRI lumbar spine with IV contrast to assess for more acute issue such as discitis. Consult ortho spine or neuro pending MRI lumbar spine results. Ideally could clarify nerve involvement would need EMG/NCS testing which could be done outpatient. Suspect femoral nerve vs. L2-4 radiculopathy. No specific sensory deficit noted to support diagnosis of radiculopathy. Physical therapy. No pain causing his symptoms on exam. Ortho examined patient and believes this to be spinal stenosis. Given patient's age and lack of physical activity in his daily life, due to the chronicity of this condition, ortho will go over the risks of the procedure and will continue to have discussions with patient regarding which path he will take. Patient is still undecided if he wants to go with conservative management vs an operation. Patient will likely have further discussion with ortho on 04/15 Consulted PT/OT. (2) Diabetes type 2, uncontrolled: A1C 8.9 Lantus 49 units BID Novolog: correction 11mg/dL/unit, carb ratio 1 unit / 4g, goal 110-140 Adequate control today. (3) BPH (benign prostatic hyperplasia): Continue tamsulosin and finasteride. (4) HLD (hyperlipidemia): Continue rosuvastatin (5) Hypothyroidism: TSH 4.58. Continue home dose of levothyroxine (6) COPD (chronic obstructive pulmonary disease): No maintenance medications. No current exacerbation. (7) Lobectomy of lung: Prior history of lung cancer. (8) Colostomy in place: Hx colon cancer. Erythema around colostomy. Patient reports erythema is chronic. Stoma appears healthy. Recommend colostomy nurse evaluation tomorrow. (9) Paroxysmal atrial fibrillation: Currently in normal sinus rhythm. Continue amiodarone and Xarelto. (10) Renal cyst: f/u outpatient renal US (11) Dementia: It is likely that patient has some component of dementia. His mini mental exam had a score of 26. Today though he is able to participate more in his conversation, and understands that he is sometimes forgetful. He understands his condition and will discuss further with ortho [email or web address] (12) DVT prophylaxis: Xarelto for pAF Code - full Dispo - PT/OT, likely will need rehabilitation Subjective Patient reports no new symptoms today. He had discussion with ortho. He is thinking about having a procedure which may help with his weakness in his lower extremity vs conservative management. Review of Systems Review of Systems: All systems reviewed & are unremarkable except as noted in HPI & below Physical Exam Physical Exam: Constitutional: WD/WN, vitals as above well groomed; no acute distress; more awake and able to converse well. Eyes: PERRL, conjunctivae normal, anicteric sclerae ENMT: external ear and nose normal, oropharynx normal Neck: normal visual inspection Respiratory: normal respiratory effort, lungs clear to auscultation Cardiovascular: Rate/Rhythm: regular rate Heart Sounds: no murmur Extremities: + edema (1+ to shins) Gastrointestinal (Abdomen): normal bowel sounds, soft, nontender, no hepatosplenomegaly (Stoma patent without abnormality; surrounding skin appears sloughed) Musculoskeletal: Extremities: + muscle atrophy (Right quadriceps > left) and + lower leg abnormality Right (hip abd: 4/5, hip add: 5/5, hip flex 4/5, knee extension 4/5, knee flex5/5, ankle dorsiflex/plantarflex 4+/5) Hip: normal ROM of hip (no pain on int/ext rotation hip) and no joint line tenderness Knee: no effusion, normal ROM of knee and no joint line tenderness Skin: peristoma dark erythema, not warm Neurologic: CN's II-XI intact bilaterally, + focal motor deficit and awake Motor/Sensory: normal movement, no pronator drift and no sensory deficit Psychiatric: Awake, oriented to place and time, euthymic affect Results & Data Vital Signs (Past 12 Hours) Vital Signs Temp Pulse Resp BP Pulse Ox 04/14/19 18:10 69 18 95 04/14/19 15:03 36.4 C L 70 17 110/66 93 PG Care Time/CCT Total # of Minutes Spent Total Time Spent with Patient: Total time spent is greater than 50% in coordination of care (as documented) at patient's floor/unit and/or counseling patient:
[2019-04-15] MEDS: LEVOTHYROXINE SODIUM 50 MCG TABLET PO SCH (06:01)
[2019-04-15] MEDS: CARBOHYDRATES FOR HYPOGLYCEMIA PO PRN (08:15)
[2019-04-15] MEDS: AMIODARONE 200 MG TAB PO SCH (08:32)
[2019-04-15] MEDS: ROSUVASTATIN CALCIUM 5 MG TAB PO SCH (08:32)
[2019-04-15] MEDS: FINASTERIDE 5 MG TAB PO SCH (08:32)
[2019-04-15] MEDS: TAMSULOSIN HCL 0.4 MG CAP PO SCH (08:32)
[2019-04-15] MEDS: RIVAROXABAN 15 MG TAB PO SCH (08:32)
[2019-04-15] MEDS: INSULIN ASPART 100 UNITS/ML 3 ML PEN SC SCH ×4 (08:36→21:17)
[2019-04-15] MEDS ORDERED: INSULIN GLARGINE SOLOSTAR 100 UNITS/ML 3 ML PEN SC SCH (09:00)
[2019-04-15] MEDS ORDERED: INSULIN GLARGINE SOLOSTAR 100 UNITS/ML 3 ML PEN SC ONE (09:00)
--- NOTE | 2019-04-15 15:25 | Pharmacy Report ---
Pharmacy Glycemic Short Note 2 - Date of Service April 15, 2019 - Glycemic Short BSG Results (Last 24 hours): 04/14/19 04/14/19 04/15/19 17:16 20:22 08:11 POC Glucose 122 H 114 H 50 L* 04/15/19 04/15/19 04/15/19 08:13 08:29 08:30 POC Glucose 48 L* 170 H 70 OUTPATIENT ANTIDIABETIC REGIMEN: * Novolog mix 70 units with breakfast, 50 units with lunch-? --Doses are not confirmed. ASSESSMENT: * Patient received total of 98 units of insulin yesterday of which 59 units were basal and 39 units were bolus. * Pt was hypoglycemic this morning since his insulin regimen was basal heavy even though the Lantus dose was reduced last night to 10 units. * Lantus was further reduced this AM and HS dose was ordered based on a scale. Total dose was reduced by 20% to prevent hypoglycemia. * BSG trended up to 177 at lunch, carb ratio was therefore tightened to 6 which is based on weight and stress of 3. If BSG continues to trend up, we may need to tighten carb ratio further. PLAN FOR INPATIENT GLYCEMIC CONTROL: * Basal insulin * Lantus 25 units SQ QAM * Lantus HS dose based on scale as follows:- - BSG less than 120 = give 0 units - BSG 120 - 160 = give 10 units - BSG greater than 160 = give 15 units * Bolus insulin * NovoLog per scale ACHS or Q6hrs while NPO * Goal Range: Low 110 mg/dL - High 140 mg/dL * Correction Factor: 20 mg/dL/unit * Nutritional / Prandial insulin per carb ratio of 1 unit per 6 grams CHO consumed PLAN FOR DISCHARGE: * HbA1c = 8.9% * Goal A1c in this patient with advanced age and comorbid conditions would be <8% * Currently he is on a Novolog Mix regimen. If patient is not reporting hypoglycemia, would resume home regimen upon discharge and titrate insulin doses based on BSGs as appropriate and under supervision of outpatient provider.
[2019-04-15] MEDS: ALBUT/IPRATROP 3MG/0.5MG NEB 3 ML VIAL INH PRN (16:49)
[2019-04-15] MEDS: INSULIN GLARGINE SOLOSTAR 100 UNITS/ML 3 ML PEN SC SCH (21:20)
--- NOTE | 2019-04-15 23:14 | Hospitalist Progress Note ---
Date of Service April 15, 2019 Assessment & Plan (1) Atrophy of quadriceps femoris muscle: Wasting with reduce quadriceps strength. Suspect lack of nerve innervation and given time span of two years suspect poor reversibility. However since he has a more acute deterioration in the last 3 days will get MRI lumbar spine with IV contrast to assess for more acute issue such as discitis. Consult ortho spine or neuro pending MRI lumbar spine results. Ideally could clarify nerve involvement would need EMG/NCS testing which could be done outpatient. Suspect femoral nerve vs. L2-4 radiculopathy. No specific sensory deficit noted to support diagnosis of radiculopathy. Physical therapy. No pain causing his symptoms on exam. Ortho examined patient and believes this to be spinal stenosis. Given patient's age and lack of physical activity in his daily life, due to the chronicity of this condition, ortho will go over the risks of the procedure and will continue to have discussions with patient regarding which path he will take. Patient appaers to be leaning towards surgery. If this is the case, will hold xarelto and will confirm with ortho. If SURGERY IS ultimately planned, then will schedule for Friday or Friday and will hold discharge. - Consulted PT/OT. (2) Diabetes type 2, uncontrolled: A1C 8.9 Lantus 49 units BID Novolog: correction 11mg/dL/unit, carb ratio 1 unit / 4g, goal 110-140 Adequate control today. (3) BPH (benign prostatic hyperplasia): Continue tamsulosin and finasteride. (4) HLD (hyperlipidemia): Continue rosuvastatin (5) Hypothyroidism: TSH 4.58. Continue home dose of levothyroxine (6) COPD (chronic obstructive pulmonary disease): No maintenance medications. No current exacerbation. (7) Lobectomy of lung: Prior history of lung cancer. (8) Colostomy in place: Hx colon cancer. Erythema around colostomy. Patient reports erythema is chronic. Stoma appears healthy. Recommend colostomy nurse evaluation tomorrow. (9) Paroxysmal atrial fibrillation: Currently in normal sinus rhythm. Continue amiodarone and Xarelto. (10) Renal cyst: f/u outpatient renal US (11) Dementia: It is likely that patient has some component of dementia. His mini mental exam had a score of 26. Today though he is able to participate more in his conversation, and understands that he is sometimes forgetful. He understands his condition and will discuss further with ortho [email or web address] (12) DVT prophylaxis: Xarelto for pAF Code - full Dispo - PT/OT, likely will need rehabilitation Subjective Patient reports no new symptoms. Patient reports he is interested in getting the surgery. Review of Systems Review of Systems: All systems reviewed & are unremarkable except as noted in HPI & below Physical Exam Physical Exam: Constitutional: WD/WN, vitals as above well groomed; no acute distress; more awake and able to converse well. Eyes: PERRL, conjunctivae normal, anicteric sclerae ENMT: external ear and nose normal, oropharynx normal Neck: normal visual inspection Respiratory: normal respiratory effort, lungs clear to auscultation Cardiovascular: Rate/Rhythm: regular rate Heart Sounds: no murmur Extremities: + edema (1+ to shins) Gastrointestinal (Abdomen): normal bowel sounds, soft, nontender, no hepatosplenomegaly (Stoma patent without abnormality; surrounding skin appears sloughed) Musculoskeletal: Extremities: + muscle atrophy (Right quadriceps > left) and + lower leg abnormality Right (hip abd: 4/5, hip add: 5/5, hip flex 4/5, knee extension 4/5, knee flex5/5, ankle dorsiflex/plantarflex 4+/5) Hip: normal ROM of hip (no pain on int/ext rotation hip) and no joint line tenderness Knee: no effusion, normal ROM of knee and no joint line tenderness Skin: peristoma dark erythema, not warm Neurologic: CN's II-XI intact bilaterally, + focal motor deficit and awake Motor/Sensory: normal movement, no pronator drift and no sensory deficit Psychiatric: Awake, oriented to place and time, euthymic affect Results & Data Vital Signs (Past 12 Hours) Vital Signs Temp Pulse Resp BP Pulse Ox 04/15/19 16:50 78 20 95 04/15/19 15:00 36.9 C 69 16 108/68 93 PG Care Time/CCT Total # of Minutes Spent Total Time Spent with Patient: Total time spent is greater than 50% in coordination of care (as documented) at patient's floor/unit and/or counseling patient:
[2019-04-16] MEDS: LEVOTHYROXINE SODIUM 50 MCG TABLET PO SCH (05:59)
[2019-04-16] MEDS: FINASTERIDE 5 MG TAB PO SCH (08:51)
[2019-04-16] MEDS: ROSUVASTATIN CALCIUM 5 MG TAB PO SCH (08:52)
[2019-04-16] MEDS: AMIODARONE 200 MG TAB PO SCH (08:52)
[2019-04-16] MEDS: TAMSULOSIN HCL 0.4 MG CAP PO SCH (08:53)
[2019-04-16] MEDS: INSULIN ASPART 100 UNITS/ML 3 ML PEN SC SCH ×4 (08:54→21:07)
[2019-04-16] MEDS: INSULIN GLARGINE SOLOSTAR 100 UNITS/ML 3 ML PEN SC SCH ×2 (08:55→21:07)
[2019-04-16] MEDS ORDERED: INSULIN GLARGINE SOLOSTAR 100 UNITS/ML 3 ML PEN SC SCH (09:00)
[2019-04-16] MEDS: RIVAROXABAN 15 MG TAB PO SCH (12:58)
--- NOTE | 2019-04-16 14:35 | Pharmacy Report ---
Pharmacy Glycemic Short Note 2 - Date of Service April 16, 2019 - Glycemic Short BSG Results (Last 24 hours): 04/15/19 04/15/19 04/15/19 12:07 17:03 20:39 POC Glucose 177 H 197 H 169 H 04/16/19 04/16/19 08:06 12:00 POC Glucose 84 99 OUTPATIENT ANTIDIABETIC REGIMEN: * Novolog mix 70 units with breakfast, 50 units with lunch-? --Doses are not confirmed. ASSESSMENT: 04/16 * Patient received a total of 53 units of insulin yesterday, 40 units were basal and 13 units were bolus * BSGs ranged from 48-197 yesterday * Fasting this morning 84, will reduce lantus today with scale by 10-30% 04/15 * Patient received total of 98 units of insulin yesterday of which 59 units were basal and 39 units were bolus. * Pt was hypoglycemic this morning since his insulin regimen was basal heavy even though the Lantus dose was reduced last night to 10 units. * Lantus was further reduced this AM and HS dose was ordered based on a scale. Total dose was reduced by 20% to prevent hypoglycemia. * BSG trended up to 177 at lunch, carb ratio was therefore tightened to 6 which is based on weight and stress of 3. If BSG continues to trend up, we may need to tighten carb ratio further. PLAN FOR INPATIENT GLYCEMIC CONTROL: * Basal insulin * Lantus 25 units SQ QAM * Lantus HS dose based on scale as follows:- - BSG less than 100 = give 8 units - BSG 100 - 160 = give 12 units - BSG greater than 160 = give 16 units * Bolus insulin * NovoLog per scale ACHS or Q6hrs while NPO * Goal Range: Low 110 mg/dL - High 140 mg/dL * Correction Factor: 20 mg/dL/unit * Nutritional / Prandial insulin per carb ratio of 1 unit per 6 grams CHO consumed PLAN FOR DISCHARGE: * HbA1c = 8.9% * Goal A1c in this patient with advanced age and comorbid conditions would be <8% * Currently he is on a Novolog Mix regimen. If patient is not reporting hypog lycemia, would resume home regimen upon discharge and titrate insulin doses based on BSGs as appropriate and under supervision of outpatient provider.
--- NOTE | 2019-04-16 16:03 | Orthopedic Progress Note ---
Date of Service April 16, 2019 Assessment & Plan (1) Lumbar stenosis: Patient's family is in the room with him this afternoon. We long discussion regarding his MRI findings and clinical presentation. We discussed possible surgical intervention. Would require a lumbar decompression possible fusion L4-5. Risk benefits pros cons and alternatives were outlined in detail. At this time his Xarelto will be held we will plan for surgery early next week. Present on Admission?: Yes Subjective Patient continues to complain of bilateral leg pain and weakness with activity. Physical Exam Physical Exam: Patient is in the chair at the bedside. Is reasonable strength testing. Results & Data Vital Signs (Past 12 Hours) Vital Signs Temp Pulse Resp BP BP Pulse Ox 04/16/19 15:02 36.4 C L 64 19 122/70 93 04/16/19 07:02 36.4 C L 64 16 126/60 94
[2019-04-16] MEDS: ALBUT/IPRATROP 3MG/0.5MG NEB 3 ML VIAL INH PRN (16:17)
--- NOTE | 2019-04-16 22:36 | Hospitalist Progress Note ---
Date of Service April 16, 2019 Assessment & Plan (1) Atrophy of quadriceps femoris muscle: Wasting with reduce quadriceps strength. Suspect lack of nerve innervation and given time span of two years suspect poor reversibility. However since he has a more acute deterioration in the last 3 days will get MRI lumbar spine with IV contrast to assess for more acute issue such as discitis. Consult ortho spine or neuro pending MRI lumbar spine results. Ideally could clarify nerve involvement would need EMG/NCS testing which could be done outpatient. Suspect femoral nerve vs. L2-4 radiculopathy. No specific sensory deficit noted to support diagnosis of radiculopathy. Physical therapy. No pain causing his symptoms on exam. Ortho examined patient and believes this to be spinal stenosis. Given patient's age and lack of physical activity in his daily life, due to the chronicity of this condition, ortho will go over the risks of the procedure and will continue to have discussions with patient regarding which path he will take. Patient appaers to be leaning towards surgery. Case is scheduled for Friday. Will hold xarelto. Friday patient will be off xarelto for 72 hours. will continue to monitor. - Consulted PT/OT. (2) Diabetes type 2, uncontrolled: A1C 8.9 Lantus 49 units BID Novolog: correction 11mg/dL/unit, carb ratio 1 unit / 4g, goal 110-140 Adequate control today. (3) BPH (benign prostatic hyperplasia): Continue tamsulosin and finasteride. (4) HLD (hyperlipidemia): Continue rosuvastatin (5) Hypothyroidism: TSH 4.58. Continue home dose of levothyroxine (6) COPD (chronic obstructive pulmonary disease): No maintenance medications. No current exacerbation. (7) Lobectomy of lung: Prior history of lung cancer. (8) Colostomy in place: Hx colon cancer. Erythema around colostomy. Patient reports erythema is chronic. Stoma appears healthy. Recommend colostomy nurse evaluation tomorrow. (9) Paroxysmal atrial fibrillation: Currently in normal sinus rhythm. Continue amiodarone and Xarelto. (10) Renal cyst: f/u outpatient renal US (11) Dementia: It is likely that patient has some component of dementia. His mini mental exam had a score of 26. Today though he is able to participate more in his conversation, and understands that he is sometimes forgetful. No change on 04/16 (12) DVT prophylaxis: held Xarelto for pAF Code - full Dispo - PT/OT, likely will need rehabilitation Subjective 88 yo male reports feeling well. He has no new complaints. Review of Systems Review of Systems: All systems reviewed & are unremarkable except as noted in HPI & below Physical Exam Physical Exam: Constitutional: WD/WN, vitals as above well groomed; no acute distress; more awake and able to converse well. Eyes: PERRL, conjunctivae normal, anicteric sclerae ENMT: external ear and nose normal, oropharynx normal Neck: normal visual inspection Respiratory: normal respiratory effort, lungs clear to auscultation Cardiovascular: Rate/Rhythm: regular rate Heart Sounds: no murmur Extremities: + edema (1+ to shins) Gastrointestinal (Abdomen): normal bowel sounds, soft, nontender, no hepatosplenomegaly (Stoma patent without abnormality; surrounding skin appears sloughed) Musculoskeletal: Extremities: + muscle atrophy (Right quadriceps > left) and + lower leg abnormality Right (hip abd: 4/5, hip add: 5/5, hip flex 4/5, knee extension 4/5, knee flex5/5, ankle dorsiflex/plantarflex 4+/5) Hip: normal ROM of hip (no pain on int/ext rotation hip) and no joint line tenderness Knee: no effusion, normal ROM of knee and no joint line tenderness Skin: peristoma dark erythema, not warm Neurologic: CN's II-XI intact bilaterally, + focal motor deficit and awake Motor/Sensory: normal movement, no pronator drift and no sensory deficit Psychiatric: Awake, oriented to place and time, euthymic affect Results & Data Vital Signs (Past 12 Hours) Vital Signs Temp Pulse Resp BP Pulse Ox 04/16/19 16:19 65 14 96 04/16/19 15:02 36.4 C L 64 19 122/70 93 PG Care Time/CCT Total # of Minutes Spent Total Time Spent with Patient: Total time spent is greater than 50% in coordination of care (as documented) at patient's floor/unit and/or counseling patient:
[2019-04-17] MEDS: LEVOTHYROXINE SODIUM 50 MCG TABLET PO SCH (06:16)
[2019-04-17] MEDS: ROSUVASTATIN CALCIUM 5 MG TAB PO SCH (07:39)
[2019-04-17] MEDS: AMIODARONE 200 MG TAB PO SCH (07:39)
[2019-04-17] MEDS: TAMSULOSIN HCL 0.4 MG CAP PO SCH (07:39)
[2019-04-17] MEDS: FINASTERIDE 5 MG TAB PO SCH (07:39)
[2019-04-17] MEDS: INSULIN ASPART 100 UNITS/ML 3 ML PEN SC SCH ×4 (08:40→21:32)
[2019-04-17] MEDS: INSULIN GLARGINE SOLOSTAR 100 UNITS/ML 3 ML PEN SC SCH ×2 (08:43→21:30)
--- NOTE | 2019-04-17 11:27 | Anesthesiology Consultation ---
Date of Service April 17, 2019 Assessment & Plan Chart Review Chart Review: Pending: Refer to Additional Notes / Consult section The patient has a productive cough with rhonchi on exam. Per the patient, this cough is new and started two weeks ago. His room air saturation is 93%. I spoke to Dr. Urbina who will order a CXR and try to optimize the patient's respirator status prior to surgery. History Surgery Operation Date: 04/19/19 11:45 Proposed Procedures p L4-L5 Deompression, Possible Fusion - Kamron Sol DO Height/Weight Height: 5 ft 9 in Weight: 86.4 kg Allergies Allergy/AdvReac Type Severity Reaction Status Date / Time atorvastatin AdvReac Verified 04/11/19 05:39 Medications Home Medications Medication Instructions Recorded Confirmed Last Taken Xarelto 15 mg PO DAILY 07/16/18 04/11/19 04/10/19 albuterol sulfate [Ventolin HFA] 2 puff INHALATION Q4 PRN 07/16/18 04/11/19 04/10/19 amiodarone [Pacerone] 200 mg PO DAILY 07/16/18 04/11/19 04/10/19 benzonatate [Tessalon Perles] 100 mg PO TID PRN 07/16/18 04/11/19 Unknown bimatoprost 1 drp OPB PM PRN 07/16/18 04/11/19 Unknown cholecalciferol (vitamin D3) 2,000 unit PO DAILY 07/16/18 04/11/19 Unknown [Vitamin D3] finasteride [Proscar] 5 mg PO DAILY 07/16/18 04/11/19 04/10/19 ipratropium-albuterol 3 ml INHALATION Q4 PRN 07/16/18 04/11/19 Unknown levothyroxine [Synthroid] 50 mcg PO DAILY 07/16/18 04/11/19 04/10/19 tamsulosin [Flomax] 0.4 mg PO DAILY 07/16/18 04/11/19 04/10/19 guaifenesin [Mucinex] 1,200 mg PO Q12 #5 tab 07/24/18 04/11/19 Unknown rosuvastatin 5 mg tablet 5 mg PO DAILY #90 tab 02/01/19 04/11/19 04/10/19 blood sugar diagnostic strips #10 ea 02/08/19 04/11/19 Unknown insulin syringe U-100 with needle #10 ea 02/08/19 04/11/19 Unknown 1 mL 31 gauge x 5/16" lancets 33 gauge #100 ea 02/08/19 04/11/19 Unknown vit C 250 mg-E 200 unit-zinc 40 1 tab PO BID 02/08/19 04/11/19 04/10/19 mg-copper 1 [id number] capsule insulin aspar prt-insulin aspart See Rx Instructions SUBCUT .COMPLEX 02/19/19 04/11/19 04/10/19 100 unit/mL (70-30) subcutaneous soln Active Medications Generic Name Dose Route Start Last Admin Trade Name Freq PRN Reason Stop Dose Admin Acetaminophen 650 mg 04/11/19 06:31 04/14/19 01:40 Tylenol PO 05/11/19 06:30 650 mg Q4H PRN Administration pain/fever Albuterol 3 ml 04/11/19 05:03 04/16/19 16:17 Duoneb INH 05/11/19 05:02 3 ml Q4 PRN Administration Shortness Of Breath Or Wheezing Amiodarone HCl 200 mg 04/11/19 09:00 04/17/19 07:39 Cordarone PO 05/11/19 08:59 200 mg DAILY LOIN Administration Finasteride 5 mg 04/11/19 09:00 04/17/19 07:39 Proscar PO 05/11/19 08:59 5 mg DAILY LION Administration Insulin Aspart 0 units 04/11/19 07:30 04/17/19 08:40 Novolog Flexpen SC 05/11/19 07:29 7 units ACHS LION Administration Protocol Insulin Glargine 0 units 04/15/19 21:00 04/16/19 21:07 Lantus Solostar Pen SC 05/15/19 20:59 12 units HS LION Administration Protocol Insulin Glargine 20 units 04/16/19 09:00 04/17/19 08:43 Lantus Solostar Pen SC 05/16/19 08:59 20 units QAM LION Administration Protocol Levothyroxine Sodium 50 mcg 04/12/19 06:30 04/17/19 06:16 Synthroid PO 05/12/19 06:29 50 mcg DAILYBB LION Administration Miscellaneous 15 - 30 gm 04/11/19 06:31 04/15/19 08:15 Carbohydrates For Hypoglycemia PO 05/11/19 06:30 30 gm UD PRN Administration Hypoglycemia Treatment Rosuvastatin Calcium 5 mg 04/11/19 09:00 04/17/19 07:39 Crestor PO 05/11/19 08:59 5 mg DAILY LION Administration Tamsulosin HCl 0.4 mg 04/11/19 09:00 04/17/19 07:39 Flomax PO 05/11/19 08:59 0.4 mg DAILY LION Administration Past Medical History Medical History Diabetes type 2, uncontrolled Dyslipidemia Elevated troponin BPH (benign prostatic hyperplasia) HLD (hyperlipidemia) HTN (hypertension) Hypothyroidism Chronic anticoagulation Chronic a-fib Shortness of breath COPD (chronic obstructive pulmonary disease) 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 Hypertrophic cardiomyopathy mean gradient of 10mmHg on echo from 03/06 Past Family History Family History Other Diabetes Heart disease Hypertension Kidney disease Past Surgical History Surgical History Ileostomy in place Social History Smoking Status: Former smoker tobacco type: cigarettes Do You Dip or Chew Tobacco: No Hx Alcohol Use: Yes Alcohol type: other alcohol intake frequency: 0-2 drinks per day Alcohol Intake Frequency Comment: bourbon 1 drink/day Hx Substance Use: No Physical Exam Vital Signs Last Vital Signs Temp 36.5 C 04/17/19 07:02 Pulse 64 04/17/19 07:02 Resp 16 04/17/19 07:02 BP 127/80 04/17/19 07:02 Pulse Ox 93 04/17/19 07:02 ENMT Mouth: + dentition abnormality Thyromental Distance: > or= 3.5 Finger Breadths Mallampati Class: III Neck normal visual inspection Respiratory Auscultation: + diminished lung sounds and + rhonchi Cardiovascular Rate/Rhythm: regular rate and regular rhythm Testing Laboratory Results 04/12/19 06:29 04/12/19 06:29 Hemoglobin A1c 8.9 % (4.5-5.6) H 04/12/19 06:29 Urine Color Yellow 04/11/19 04:15 Urine Appearance Clear (Clear) 04/11/19 04:15 Urine pH 7.0 (4.5-7.5) 04/11/19 04:15 Ur Specific [place] 1.016 (1.000-1.030) 04/11/19 04:15 Urine Protein Negative (Negative) 04/11/19 04:15 Urine Glucose (UA) 2+ (Negative) H 04/11/19 04:15 Urine Ketones Negative (Negative) 04/11/19 04:15 Urine Nitrite Negative (Negative) 04/11/19 04:15 Ur Leukocyte Esterase Negative (Negative) 04/11/19 04:15 04/17/19 04/17/19 12:11 08:20 POC Glucose 168 H 119 H Electrocardiogram Date: 04/11/19 Normal sinus rhythm Left ventricular hypertrophy with repolarization abnormality Prolonged QT Abnormal ECG When compared with ECG of 22-JUL-2018 14:54, No significant change Confirmed by Lg Beckett ([id number]) on 04/11/2019 10:15:06 PM Echocardiogram Date: 03/03/17 The left ventricle is hyperdynamic. No regional wall motion abnormalities noted. The echo findings are consistent with hypertrophic cardiomyopathy. Ejection Fraction = >70 %. There is mild tricuspid regurgitation Other Testing CT chest 12/08/18 IMPRESSION: 1. Stable postoperative changes left hemithorax consistent with prior left lower lobectomy. 2. Chronic basilar postoperative as well as bronchiectatic changes are stable. 3. No evidence for new interval or progressive process. Head CT: 04/11/19 1. No significant change compared to the prior study. No acute intracranial abnormality. 2. Chronic sinusitis of the right maxillary sinus
[2019-04-17] MEDS: CARBOHYDRATES FOR HYPOGLYCEMIA PO PRN (17:25)
[2019-04-17] MEDS: LEVALBUTEROL HCL 1.25 MG/3 ML NEB NEB SCH (19:05)
--- NOTE | 2019-04-17 22:45 | Hospitalist Progress Note ---
Date of Service April 17, 2019 Assessment & Plan (1) Atrophy of quadriceps femoris muscle: Wasting with reduce quadriceps strength. Suspect lack of nerve innervation and given time span of two years suspect poor reversibility. However since he has a more acute deterioration in the last 3 days will get MRI lumbar spine with IV contrast to assess for more acute issue such as discitis. Consult ortho spine or neuro pending MRI lumbar spine results. Ideally could clarify nerve involvement would need EMG/NCS testing which could be done outpatient. Suspect femoral nerve vs. L2-4 radiculopathy. No specific sensory deficit noted to support diagnosis of radiculopathy. Physical therapy. No pain causing his symptoms on exam. Ortho examined patient and believes this to be spinal stenosis. Given patient's age and lack of physical activity in his daily life, due to the chronicity of this condition, Patient has opted for procedure on Friday.. Case is scheduled for Friday. Will hold xarelto. Friday patient will be off xarelto for 72 hours. will continue to monitor. - Consulted PT/OT. (2) Diabetes type 2, uncontrolled: A1C 8.9 Lantus 49 units BID Novolog: correction 11mg/dL/unit, carb ratio 1 unit / 4g, goal 110-140 Adequate control today. (3) BPH (benign prostatic hyperplasia): Continue tamsulosin and finasteride. (4) HLD (hyperlipidemia): Continue rosuvastatin (5) Hypothyroidism: TSH 4.58. Continue home dose of levothyroxine (6) COPD (chronic obstructive pulmonary disease): No maintenance medications. No current exacerbation. Patient placed on round the clock nebs. Patient is having rhonchi on exam. Will also place on flutter valve. Will continue to monitor. (7) Lobectomy of lung: Prior history of lung cancer. (8) Colostomy in place: Hx colon cancer. Erythema around colostomy. Patient reports erythema is chronic. Stoma appears healthy. Recommend colostomy nurse evaluation tomorrow. (9) Paroxysmal atrial fibrillation: Currently in normal sinus rhythm. Continue amiodarone and Xarelto. (10) Renal cyst: f/u outpatient renal US (11) Dementia: It is likely that patient has some component of dementia. His mini mental exam had a score of 26. Today though he is able to participate more in his conversation, and understands that he is sometimes forgetful. No change on 04/17 (12) DVT prophylaxis: held Xarelto for pAF Code - full Dispo - PT/OT, likely will need rehabilitation Discussed case with specialist and family. Subjective Patient reports no new symptoms. Patient's is at bedside. Review of Systems Review of Systems: All systems reviewed & are unremarkable except as noted in HPI & below Physical Exam Physical Exam: Constitutional: WD/WN, vitals as above well groomed; no acute distress; more awake and able to converse well. Eyes: PERRL, conjunctivae normal, anicteric sclerae ENMT: external ear and nose normal, oropharynx normal Neck: normal visual inspection Respiratory: normal respiratory effort, lungs rhonchi heard bilaterally, no breath sounds heard at left base (s/p lobectomy) Cardiovascular: Rate/Rhythm: regular rate Heart Sounds: no murmur Extremities: + edema (1+ to shins) Gastrointestinal (Abdomen): normal bowel sounds, soft, nontender, no hepatosplenomegaly Musculoskeletal: Extremities: + muscle atrophy (Right quadriceps > left) and + lower leg abnormality Right (hip abd: 4/5, hip add: 5/5, hip flex 4/5, knee extension 4/5, knee flex5/5, ankle dorsiflex/plantarflex 4+/5) Hip: normal ROM of hip (no pain on int/ext rotation hip) and no joint line tenderness Knee: no effusion, normal ROM of knee and no joint line tenderness Skin: peristoma dark erythema, not warm Neurologic: CN's II-XI intact bilaterally, + focal motor deficit and awake Motor/Sensory: normal movement, no pronator drift and no sensory deficit Psychiatric: Awake, oriented to place and time, euthymic affect Results & Data Vital Signs (Past 12 Hours) Vital Signs Temp Pulse Resp BP Pulse Ox 04/17/19 19:05 77 18 92 04/17/19 15:08 36.4 C L 63 17 99/73 L 94 PG Care Time/CCT Total # of Minutes Spent Total Time Spent with Patient: Total time spent is greater than 50% in coordination of care (as documented) at patient's floor/unit and/or counseling patient:
[2019-04-18] MEDS: LEVALBUTEROL HCL 1.25 MG/3 ML NEB NEB SCH ×4 (01:20→19:50)
[2019-04-18] MEDS: LEVOTHYROXINE SODIUM 50 MCG TABLET PO SCH (06:15)
[2019-04-18] MEDS: ROSUVASTATIN CALCIUM 5 MG TAB PO SCH (08:30)
[2019-04-18] MEDS: FINASTERIDE 5 MG TAB PO SCH (08:30)
[2019-04-18] MEDS: INSULIN GLARGINE SOLOSTAR 100 UNITS/ML 3 ML PEN SC SCH ×2 (08:30→21:27)
[2019-04-18] MEDS: AMIODARONE 200 MG TAB PO SCH (08:30)
[2019-04-18] MEDS: TAMSULOSIN HCL 0.4 MG CAP PO SCH (08:30)
[2019-04-18] MEDS: INSULIN ASPART 100 UNITS/ML 3 ML PEN SC SCH ×4 (08:38→21:28)
--- NOTE | 2019-04-18 09:00 | Orthopedic Progress Note ---
Date of Service April 18, 2019 Assessment & Plan (1) Lumbar stenosis: Pros, cons, alternatives have been reviewed in detail. We have discussed surgical intervention which again would require posterior lumbar decompression with possible fusion of L4-5. Xarelto has been held. He is interested in proceeding with above-mentioned surgical planning tomorrow. Supervising Physician Co-Signing Physician Notes Dr. Kamron Sol Subjective Patient has continued to significant weakness predominately right lower extremity. He now emanates with a cane when at home. This is been ongoing for 6 to 12 months. Has modest pain associated with it. Dr. Sol has reviewed the option of surgical intervention which would require posterior lumbar decompression with possible fusion of L4-5. Review of Systems Review of Systems: All systems reviewed & are unremarkable except as noted in HPI & below Physical Exam Physical Exam: Unchanged. He is alert and oriented x3. Sitting in a chair eating breakfast. Results & Data Vital Signs (Past 12 Hours) Vital Signs Temp Pulse Resp BP Pulse Ox 04/18/19 08:10 36.4 C L 67 18 115/70 93 04/18/19 07:35 58 L 20 93 04/18/19 01:20 65 18 94 04/17/19 22:51 36.7 C 67 16 144/81 H 91
--- NOTE | 2019-04-18 11:02 | Pharmacy Report ---
Pharmacy Glycemic Short Note 2 - Date of Service April 18, 2019 - Glycemic Short BSG Results (Last 24 hours): 04/17/19 04/17/19 04/17/19 12:11 17:18 17:20 POC Glucose 168 H 51 L* 51 L* 04/17/19 04/17/19 04/18/19 17:53 20:30 08:06 POC Glucose 77 172 H 140 H 04/18/19 08:36 POC Glucose 156 H OUTPATIENT ANTIDIABETIC REGIMEN: * Novolog mix 70 units with breakfast, 50 units with lunch-? --Doses are not confirmed. ASSESSMENT: * Mr. Benjamin received 49 units of insulin yesterday (significantly less than home dosing) * 32 units of basal * 17 units of bolus * Lantus dose has been significantly reduced over the past several days. Fasting BSG of 156 mg/dL this AM is above goal but patient will be made NPO at midnight for lumbar surgery tomorrow, therefore I will not increase Lantus dose. Will need to reassess on 04/19. * Novolog CF and CR were loosened yesterday morning due to post prandial BSGs below goal on 04/16 (99, 80). Patient had an episode of hypoglycemia last evening at dinner time (51 mg/dL, repeat 77 mg/dL), therefore Novolog CF and CR were loosened again. Today, post prandials are on the rise. These fluctuations are consistent with previous admission data. PLAN FOR INPATIENT GLYCEMIC CONTROL: * Basal insulin * Lantus 20 units SQ QAM * Lantus HS dose based on scale as follows:- - BSG less than 120 = give 8 units - BSG 120 - 180 = give 12 units - BSG greater than 180 = give 16 units * Bolus insulin * NovoLog per scale ACHS or Q6hrs while NPO * Goal Range: Low 110 mg/dL - High 140 mg/dL * Correction Factor: 20 mg/dL/unit * Nutritional / Prandial insulin per carb ratio of 1 unit per 10 grams CHO consumed PLAN FOR DISCHARGE: * HbA1c = 8.9% * Goal A1c in this patient with advanced age and comorbid conditions would be <8% * Currently he is on a Novolog Mix regimen. If patient is not reporting hypoglycemia, would resume home regimen upon discharge and titrate insulin doses based on BSGs as appropriate and under supervision of outpatient provider.
--- NOTE | 2019-04-18 16:35 | XRay Report ---
SINGLE VIEW CHEST CLINICAL HISTORY: Wheezing. FINDINGS: An AP, portable, upright chest radiograph is compared to study dated 07/22/2018 and correlate d with chest CT dated 12/08/2018. The examination is degraded by portable technique and patient rotati on. The heart is enlarged and there is atherosclerotic calcification of the thoracic aorta. The pulmo nary vasculature is noncongested. There are calcified mediastinal lymph nodes. Scattered calcified gr anulomas are observed. Emphysema and chronic interstitial thickening are similar to previous. There i s postoperative change and volume loss consistent with a history of left-sided pulmonary resection. P leural fluid is again seen at the left lung base. There is associated left basilar scarring/atelectas is. No airspace consolidation is seen typical for pneumonia. No pneumothorax is seen. The skeletal st ructures are osteopenic. The bony thorax is grossly intact. IMPRESSION: 1. Cardiomegaly without radiographic evidence of congestive failure. 2. Emphysema and postoperative change from left-sided pulmonary resection are again noted. 3. Pleural fluid at the left lung base is unchanged and likely due to previous surgery. No acute card iopulmonary abnormality is identified. Electronically signed by: Esteban Rob M.D. 04/18/2019 4:33 PM
--- NOTE | 2019-04-18 22:29 | Hospitalist Progress Note ---
Date of Service April 18, 2019 Assessment & Plan (1) Atrophy of quadriceps femoris muscle: Wasting with reduce quadriceps strength. Suspect lack of nerve innervation and given time span of two years suspect poor reversibility. However since he has a more acute deterioration in the last 3 days will get MRI lumbar spine with IV contrast to assess for more acute issue such as discitis. Consult ortho spine or neuro pending MRI lumbar spine results. Ideally could clarify nerve involvement would need EMG/NCS testing which could be done outpatient. Suspect femoral nerve vs. L2-4 radiculopathy. No specific sensory deficit noted to support diagnosis of radiculopathy. Physical therapy. No pain causing his symptoms on exam. Ortho examined patient and believes this to be spinal stenosis. Given patient's age and lack of physical activity in his daily life, due to the chronicity of this condition, Patient has opted for procedure. Case is scheduled for Friday. Will hold xarelto. Friday patient will be off xarelto for 72 hours. will continue to monitor. - Consulted PT/OT. (2) Diabetes type 2, uncontrolled: A1C 8.9 Lantus 49 units BID Novolog: correction 11mg/dL/unit, carb ratio 1 unit / 4g, goal 110-140 Adequate control today. (3) BPH (benign prostatic hyperplasia): Continue tamsulosin and finasteride. (4) HLD (hyperlipidemia): Continue rosuvastatin (5) Hypothyroidism: TSH 4.58. Continue home dose of levothyroxine (6) COPD (chronic obstructive pulmonary disease): No maintenance medications. No current exacerbation. Patient placed on round the clock nebs. Patient is having rhonchi on exam, but this has improved. Rechecked X-ray, no signs of consolidation. Will also place on flutter valve. Will continue to monitor. (7) Lobectomy of lung: Prior history of lung cancer. (8) Colostomy in place: Hx colon cancer. Erythema around colostomy. Patient reports erythema is chronic. Stoma appears healthy. Recommend colostomy nurse evaluation tomorrow. (9) Paroxysmal atrial fibrillation: Currently in normal sinus rhythm. Continue amiodarone and Xarelto. (10) Renal cyst: f/u outpatient renal US (11) Dementia: It is likely that patient has some component of dementia. His mini mental exam had a score of 26. Today though he is able to participate more in his conversation, and understands that he is sometimes forgetful. No change on 04/18 (12) DVT prophylaxis: held Xarelto for pAF Code - full Dispo - PT/OT, likely will need rehabilitation Discussed case with specialist and family. Subjective Patient reports no new symptoms today. Review of Systems Review of Systems: All systems reviewed & are unremarkable except as noted in HPI & below Physical Exam Physical Exam: Constitutional: WD/WN, vitals as above well groomed; no acute distress; more awake and able to converse well. Eyes: PERRL, conjunctivae normal, anicteric sclerae ENMT: external ear and nose normal, oropharynx normal Neck: normal visual inspection Respiratory: normal respiratory effort, lungs rhonchi heard bilaterally, no breath sounds heard at left base (s/p lobectomy) Cardiovascular: Rate/Rhythm: regular rate Heart Sounds: no murmur Extremities: + edema (1+ to shins) Gastrointestinal (Abdomen): normal bowel sounds, soft, nontender, no hepatosplenomegaly Musculoskeletal: Extremities: + muscle atrophy (Right quadriceps > left) and + lower leg abnormality Right (hip abd: 4/5, hip add: 5/5, hip flex 4/5, knee extension 4/5, knee flex5/5, ankle dorsiflex/plantarflex 4+/5) Hip: normal ROM of hip (no pain on int/ext rotation hip) and no joint line tenderness Knee: no effusion, normal ROM of knee and no joint line tenderness Skin: peristoma dark erythema, not warm Neurologic: CN's II-XI intact bilaterally, + focal motor deficit and awake Motor/Sensory: normal movement, no pronator drift and no sensory deficit Psychiatric: Awake, oriented to place and time, euthymic affect Results & Data Vital Signs (Past 12 Hours) Vital Signs Temp Pulse Resp BP Pulse Ox 04/18/19 19:52 60 14 93 04/18/19 14:51 36.3 C L 74 17 151/77 H 94 04/18/19 13:10 71 16 94 PG Care Time/CCT Total # of Minutes Spent Total Time Spent with Patient: Total time spent is greater than 50% in coordination of care (as documented) at patient's floor/unit and/or counseling patient:
[2019-04-19] MEDS: LEVALBUTEROL HCL 1.25 MG/3 ML NEB NEB SCH ×3 (00:55→13:35)
[2019-04-19] MEDS ORDERED: Nursing to Pharmacy Communication ONE (05:27)
[2019-04-19] MEDS: INSULIN ASPART 100 UNITS/ML 3 ML PEN SC SCH ×2 (06:11→13:30)
[2019-04-19] MEDS: LEVOTHYROXINE SODIUM 50 MCG TABLET PO SCH (06:11)
[2019-04-19] MEDS: AMIODARONE 200 MG TAB PO SCH (08:32)
[2019-04-19] MEDS: ROSUVASTATIN CALCIUM 5 MG TAB PO SCH (08:32)
[2019-04-19] MEDS: FINASTERIDE 5 MG TAB PO SCH (08:33)
[2019-04-19] MEDS: TAMSULOSIN HCL 0.4 MG CAP PO SCH (08:33)
[2019-04-19] MEDS: INSULIN GLARGINE SOLOSTAR 100 UNITS/ML 3 ML PEN SC SCH ×2 (08:36→11:11)
--- NOTE | 2019-04-19 14:28 | Orthopedic Progress Note ---
Date of Service April 19, 2019 Assessment & Plan (1) Lumbar stenosis: Unfortunately his insurance is declined his surgical procedure today. Is my understanding that if he were to be discharged we can see him in the office the next few days and attempt authorization at that time. Again our recommendation would be lumbar decompression possible for surgery L4-5. I reviewed this with his family were at the bedside this afternoon. Hopefully he will be able to be discharged home very soon we will see him in the office. Present on Admission?: Yes Subjective Patient continues to have bilateral leg weakness. Physical Exam Physical Exam: Patient is resting comfortably in bed. Is neurologically intac t. Results & Data Vital Signs (Past 12 Hours) Vital Signs Temp Pulse Resp BP Pulse Ox 04/19/19 13:38 64 18 93 04/19/19 07:57 36.6 C 72 18 136/67 95 04/19/19 07:42 74 18 93
--- NOTE | 2019-04-19 15:06 | Pharmacy Report ---
Pharmacy Glycemic Short Note 2 - Date of Service April 19, 2019 - Glycemic Short BSG Results (Last 24 hours): 04/18/19 04/18/19 04/19/19 17:05 20:47 05:55 POC Glucose 183 H 115 H 186 H OUTPATIENT ANTIDIABETIC REGIMEN: * Novolog mix 70 units with breakfast, 50 units with lunch-? --Doses are not confirmed. ASSESSMENT: * Mr. Benjamin received 46 units of insulin yesterday (significantly less than home dosing) * 28 units of basal * 18 units of bolus * Lantus dose reduced last evening in anticipation for NPO status and surgery today. Unfortunately, due to insurance issues this surgery was cancelled. * BSGs ranging 115-186 over past 24 hours * BSG of 186 mg/dL this AM - with reduced Lantus dose * Will increase Lantus dose back to 32 units daily (12 units this evening) PLAN FOR INPATIENT GLYCEMIC CONTROL: * Basal insulin * Lantus 20 units SQ QAM * Lantus 12 units SC hs * Bolus insulin - continue current parameters * NovoLog per scale ACHS or Q6hrs while NPO * Goal Range: Low 110 mg/dL - High 140 mg/dL * Correction Factor: 20 mg/dL/unit * Nutritional / Prandial insulin per carb ratio of 1 unit per 10 grams CHO consumed PLAN FOR DISCHARGE: * HbA1c = 8.9% * Goal A1c in this patient with advanced age and comorbid conditions would be <8% * Currently he is on a Novolog Mix regimen. If patient is not reporting hypoglycemia, would resume home regimen upon discharge and titrate insulin doses based on BSGs as appropriate and under supervision of outpatient provider.
--- NOTE | 2019-04-19 15:32 | Discharge Summary ---
Date of Service April 19, 2019 Admission HPI Per Admitting Provider Pt is a 88yo M PMH COPD, h/o lung ca s/p LLL lobectomy 2009, afib on chronic AC, T2DM poorly controlled, HTN, DLD, gait disturbance, hypothyroid, colon ca s/p colectomy with stoma who presents with acute on chronic R leg weakness and pain. He notes the weakness and pain has been present about 6 months, and he had started using a cane for mobility. In the last week, he notes acute worsening of his symptoms. [employer] he had a fall due to his leg "giving out" on him. was behind him and "caught" him, helping to bring him to the ground. Has been using tylenol for pain relief without much help. In the ER, xrays were obtained which showed no acute fracture, with bone on bone involvement of the R knee, official read pending. Head CT was obtained to r/o acute head bleed/stroke and was negative. Initial labs were WNL and vitals were stable. Principal Diagnosis Spinal stensosis Discharge Exam Constitutional WD/WN, vitals as above Eyes EOM intact bilaterally; no conjunctival abnormality ENMT external ear and nose normal, oropharynx normal Neck trachea midline, no thyromegaly normal visual inspection Respiratory normal respiratory effort, lungs clear to auscultation no respiratory distress Cardiovascular RRR, no murmur, no edema Gastrointestinal (Abdomen) Inspection/Auscultation: abdomen normal to inspection; abdomen not distended Musculoskeletal no cyanosis or clubbing, extremities motor strength 5/5 Skin no rashes, warm and dry Neurologic moves all extremities and awake Psychiatric Orientation: alert, oriented to person and cooperative Discharge Data Allergies Allergy/AdvReac Type Severity Reaction Status Date / Time atorvastatin AdvReac Verified 04/11/19 05:39 Consultations 04/11/19 06:31 Consult Case Management - Discharge Planning Routine 04/13/19 09:00 Consult Orthopedic Surgery Routine Procedures Performed Operation Date: 04/19/19 11:45 <No data on this case meets the specified criteria> Ordered Studies 04/11/19 02:07 CT head/brain wo con Urgent 04/11/19 06:31 CT pelvis wo con Routine 04/11/19 12:17 MR lumbar spine wo/w con Routine Hospital Course (1) Atrophy of quadriceps femoris muscle: Wasting with reduce quadriceps strength. Suspect lack of nerve innervation and given time span of two years suspect poor reversibility. However since he has a more acute deterioration in the last 3 days will get MRI lumbar spine with IV contrast to assess for more acute issue such as discitis. Consult ortho spine or neuro pending MRI lumbar spine results. Ideally could clarify nerve involvement would need EMG/NCS testing which could be done outpatient. Suspect femoral nerve vs. L2-4 radiculopathy. No specific sensory deficit noted to support diagnosis of radiculopathy. Physical therapy. No pain causing his symptoms on exam. Ortho examined patient and believes this to be spinal stenosis. Consulted PT/OT - Home PT services until seen by Dr. Sol. (2) Diabetes type 2, uncontrolled: A1C 8.9%. - Continue home regimen on discharge. (3) BPH (benign prostatic hyperplasia): Continue tamsulosin and finasteride. (4) HLD (hyperlipidemia): Continue rosuvastatin (5) Hypothyroidism: TSH 4.58. Continue home dose of levothyroxine (6) COPD (chronic obstructive pulmonary disease): No maintenance medications. No current exacerbation. Patient placed on round the clock nebs. Patient is having rhonchi on exam, but this has improved. Rechecked X-ray, no signs of consolidation. Will also place on flutter valve. Will continue to monitor. (7) Lobectomy of lung: Prior history of lung cancer. (8) Colostomy in place: Hx colon cancer. Erythema around colostomy. Patient reports erythema is chronic. Stoma appears healthy. Recommend colostomy nurse evaluation tomorrow. (9) Paroxysmal atrial fibrillation: Currently in normal sinus rhythm. Continue amiodarone and Xarelto. (10) Renal cyst: f/u outpatient renal US (11) Dementia: It is likely that patient has some component of dementia. His mini mental exam had a score of 26. Today though he is able to participate more in his conversation, and understands that he is sometimes forgetful. No change on 04/18 (12) DVT prophylaxis: held Xarelto for pAF - Will restart on discharge. Total Time Total Time Spent Total Time Spent (In Minutes): 35 Discharge Plan Discharge Items Patient Disposition: Home - Home Health Services Reason For Visit: RIGHT LEG WEAKNESS Discharge Diagnosis: Spinal stenosis Activity: Resume your previous activity Non-emergency contact: Primary Care Provider and Surgeon Call non-emergency contact if: your symptoms worsen Follow-up/Referrals: Cheryl Erickson PA-C [Primary Care Provider] - 04/26/19 11:00 am (Please, follow up with Cheryl Erickson PA-C on FridayApril 26 at 11:00 am. *If you need to change this appointment, call the office at [phone].) Diet: Carb Consistent or DM2 Addtl Attending Provider Instructions: Please take acetaminophen as needed for pain. Follow up with Dr. Sol in his office to hopefully schedule the surgery soon. I would restart your Xarelto on discharge (resume at normal dosing, no extra dosing needed). It can be held several days prior to surgery when it is scheduled. Please return to the hospital with any new or worsening weakness in the legs. Pending Studies at Discharge: No Stand-Alone Forms: My [facility] Medications and DC Order Prescriptions: Continued rosuvastatin [Crestor] 5 mg tablet 5 mg PO DAILY Qty: 90 RF: 3 PoolCubesTouch Ultra Blue Test Strip strip .ROUTE .MEDSUPPLY Qty: 10 RF: 0 PreserVision AREDS-2 [id number] fg-plnd-bb-mg capsule 1 tab PO BID RF: 0 lancets [PoolCubesTouch Delica Lancets] 33 gauge misc .ROUTE .MEDSUPPLY Qty: 100 RF: 0 insulin syringe-needle U-100 [BD Insulin Syringe Ultra-Fine] 1 mL 31 gauge x 5/16 syringe .ROUTE .MEDSUPPLY Qty: 10 RF: 0 ipratropium-albuterol 0.5 mg-3 mg(2.5 mg base)/3 mL Solution For Nebulization 3 ml INHALATION Q4 PRN (Reason: Shortness Of Breath Or Wheezing) RF: 0 amiodarone [Pacerone] 200 mg tablet 200 mg PO DAILY RF: 0 bimatoprost 0.03 % Drops 1 drp OPB PM PRN (Reason: Eye Irritation) RF: 0 tamsulosin [Flomax] 0.4 mg capsule 0.4 mg PO DAILY RF: 0 benzonatate [Tessalon Perles] 100 mg Capsule 100 mg PO TID PRN (Reason: Cough) RF: 0 levothyroxine [Synthroid] 50 mcg tablet 50 mcg PO DAILY RF: 0 albuterol sulfate [Ventolin HFA] 90 mcg/actuation Hfa Aerosol Inhaler 2 puff INHALATION Q4 PRN (Reason: Shortness Of Breath Or Wheezing) RF: 0 finasteride [Proscar] 5 mg tablet 5 mg PO DAILY RF: 0 cholecalciferol (vitamin D3) [Vitamin D3] 1,000 unit Tablet 2,000 unit PO DAILY RF: 0 Xarelto 15 mg tablet 15 mg PO DAILY RF: 0 Novolog Mix 70-30 U-100 Insuln 100 unit/mL (70-30) solution See Patient Comments subcut .COMPLEX RF: 0 guaifenesin [Mucinex] 600 mg Tablet Extended Release 12hr 1,200 mg PO Q12 Qty: 5 RF: 0 Discharge Orders: Discharge Order (Routine); Ordered 04/19/19 Ordered By: Vance Nazario/Other Patient Handouts: Back Pain Relieve Admission Data Admit Date/Time: 04/12/19 22:26 Attending Provider: Vance Natarajan Admit Provider: Ole Flores Primary Care Provider: Cheryl Erickson Other Providers: Kamron Sol ; [facility] ; [place] Other Interventions: Discharge Summary Assessment (RN) Last Done: 04/19/19 15:20
[2019-04-19] MEDS ORDERED: INSULIN GLARGINE SOLOSTAR 100 UNITS/ML 3 ML PEN SC SCH (21:00)
== END 2019-04-19 16:10 | disposition home health service (06) | DRG 552 ==
LOC: 3W 01:46 → ED 01:46 → SUATTDRO 05:15 → 3W 05:52 → SUATTDRO 04-12 22:26

== ENCOUNTER 2019-09-21 08:50 | Inpatient (IN) ==
--- NOTE | 2019-09-06 12:11 | PAT Medication Instructions ---
Medication Instructions Date of Service September 06, 2019 Home Medications Medication Instructions Recorded [employer] Ultra Blue Test Strip #200 ea NS 07/05/19 albuterol sulfate [Ventolin HFA] 2 puff INHALATION Q4 PRN amiodarone [Pacerone] 200 mg PO 1700 bimatoprost 1 drp OPB PM cholecalciferol (vitamin D3) [Vitamin D3] 1,000 unit PO BID finasteride [Proscar] 5 mg PO QAM ipratropium-albuterol 3 ml INHALATION Q4 PRN levothyroxine [Synthroid] 50 mcg PO QAM vit C 250 mg-E 200 unit-zinc 40 mg-copper 1 kt-bpgelh-mudnpy capsule 1 tab PO QAM guaifenesin 600 mg tablet, extended release 12 hr 1,200 mg PO Q12 PRN calcium carbonate-vitamin D3 [Calcium 600 + D(3)] 1 cap PO QPM insulin asp prt-insulin aspart [Novolog Mix 70-30 U-100 Insuln] 30 - 45 sliding scale dose SUBCUT BIDM rivaroxaban [Xarelto] 20 mg PO QPM rosuvastatin [Crestor] 5 mg PO QPM ASK your prescriber and surgeon rivaroxaban [Xarelto] 20 mg PO QPM STOP taking 2 weeks before surgery (or as soon as possible if surgery is within 2 weeks) vit C 250 mg-E 200 unit-zinc 40 mg-copper 1 ik-kzikkc-hajwon capsule 1 tab PO QAM DO NOT take the morning of surgery cholecalciferol (vitamin D3) [Vitamin D3] 1,000 unit PO BID guaifenesin 600 mg tablet, extended release 12 hr 1,200 mg PO Q12 PRN Take morning of surgery With a small sip of water, OTHERWISE NOTHING TO EAT OR DRINK AFTER MIDNIGHT: albuterol sulfate [Ventolin HFA] 2 puff INHALATION Q4 PRN (use if needed; please bring with you to hospital day of surgery if possible) finasteride [Proscar] 5 mg PO QAM ipratropium-albuterol 3 ml INHALATION Q4 PRN (if needed) levothyroxine [Synthroid] 50 mcg PO QAM Take evening before surgery albuterol sulfate [Ventolin HFA] 2 puff INHALATION Q4 PRN (if needed) amiodarone [Pacerone] 200 mg PO 1700 bimatoprost 1 drp OPB PM cholecalciferol (vitamin D3) [Vitamin D3] 1,000 unit PO BID ipratropium-albuterol 3 ml INHALATION Q4 PRN (if needed) guaifenesin 600 mg tablet, extended release 12 hr 1,200 mg PO Q12 PRN (if needed) calcium carbonate-vitamin D3 [Calcium 600 + D(3)] 1 cap PO QPM insulin asp prt-insulin aspart [Novolog Mix 70-30 U-100 Insuln] 30 - 45 sliding scale dose SUBCUT BIDM rosuvastatin [Crestor] 5 mg PO QPM Insulin Dependent Diabetic Patients * Test your blood sugar the morning of surgery * If Blood Sugar is GREATER THAN 150, take HALF of your regular units of: insulin asp prt-insulin aspart [Novolog Mix 70-30 U-100 Insuln] * If Blood Sugar is LESS THAN 150, DO NOT TAKE ANY: insulin asp prt-insulin aspart [Novolog Mix 70-30 U-100 Insuln] Other Notes If you have any questions please call us at [phone] or [phone] or [phone] or [phone]
--- NOTE | 2019-09-07 13:01 | Anesthesiology Consultation ---
Date of Service September 07, 2019 Assessment & Plan (1) Encounter for pre-operative examination: Chart Review Chart Review: Pending: Refer to Additional Notes / Consult section (awaiting surgeon ordered PCP clearance ) and Patient seen in Pre Admission Testing Will obtain PCP clearance 09/13/19. Seen by cardio 08/03/19= Paroxysmal atrial fibrillation-symptomatic RVR; now on amiodarone for rhythm control and anticoagulation with Xarelto. Hypertrophic cardiomyopathy--asymptomatic, minimal gradient last echo 02/2017. Hypertension-- controlled on current therapy. Reported history of sick sinus syndrome--asym ptomatic on amiodarone; beta-angie on hold. Spinal stenosis. "Remains stable for cardio standpoint. Currently in SR and no recent symptoms to suggest a fib. Activity level is limited by leg weakness presumed from spinal stenosis but no limiting cardiac symptoms. From a cardiac standpoint he is an acceptable risk to proceed with surgery without additional cardiac testing/intervention." Last seen by endo 09/01/19= blood sugars vary between 66-475mg/dl. Using caution due to patient's age- had discussion that goal is to avoid hypoglcyemia but also to avoid glucose getting too high. Aware of upcoming back surgery- pt will follow up after surgery. Last Hgb A1C on file from 03/2019 was 8.9. History Surgery Operation Date: 09/21/19 10:45 Proposed Procedures p L4-L5 Decompression Fusion, Spinal Cord Monitoring - Kamron Sol DO Height/Weight Height: 5 ft 9 in Weight: 85.9 kg Allergies Allergy/AdvReac Type Severity Reaction Status Date / Time atorvastatin AdvReac Intermediate leg pain Verified 09/01/19 14:08 Medications Home Medications Medication Instructions Recorded Confirmed Last Taken albuterol sulfate [Ventolin HFA] 2 puff INHALATION Q4 PRN 07/16/18 09/01/19 04/10/19 amiodarone [Pacerone] 200 mg PO 1700 07/16/18 09/01/19 04/10/19 bimatoprost 1 drp OPB PM 07/16/18 09/01/19 Unknown cholecalciferol (vitamin D3) 1,000 unit PO BID 07/16/18 09/01/19 Unknown [Vitamin D3] finasteride [Proscar] 5 mg PO QAM 07/16/18 09/01/19 04/10/19 ipratropium-albuterol 3 ml INHALATION Q4 PRN 07/16/18 09/01/19 Unknown levothyroxine [Synthroid] 50 mcg PO QAM 07/16/18 09/01/19 04/10/19 insulin syringe-needle U-100 1 mL #10 ea 02/08/19 09/01/19 Unknown 31 gauge x 5/16" lancets 33 gauge #100 ea 02/08/19 09/01/19 Unknown vit C 250 mg-E 200 unit-zinc 40 1 tab PO QAM 02/08/19 09/01/19 04/10/19 mg-copper 1 qx-scrxgg-tvsyvz capsule OneTouch Ultra Blue Test Strip #200 ea NS 07/05/19 09/01/19 Unknown guaifenesin 600 mg tablet, 1,200 mg PO Q12 PRN tab 08/02/19 09/01/19 Unknown extended release 12 hr calcium carbonate-vitamin D3 1 cap PO QPM 09/01/19 09/01/19 Unknown [Calcium 600 + D(3)] insulin asp prt-insulin aspart 30 - 45 sliding scale dose SUBCUT 09/01/19 Unknown [Novolog Mix 70-30 U-100 Insuln] BIDM rivaroxaban [Xarelto] 20 mg PO QPM 09/01/19 09/01/19 Unknown rosuvastatin [Crestor] 5 mg PO QPM 09/01/19 09/01/19 Unknown Past Medical History Medical History (Updated 09/08/19 @ 09:35 by Dorothy Flood, GERRIC) BPH (benign prostatic hyperplasia) CHF (congestive heart failure) Pt denies issues Chronic a-fib Controlled and stable Chronic back pain 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 has not been using On anticoagulant therapy Osteoarthritis Osteoporosis Pancreatitis ~20 years ago Sick sinus syndrome Reported history per cardio note- asymptomatic on amiodarone- beta angie on hold Ulcerative colitis hx Exercise / Class Metabolic Activity III < 4 Walking/Shop/Light housework (no chest pain or SOB with small distance on flat surface- uses walker ) Past Family History Family History (Updated 09/01/19 @ 08:45 by Ruthie Chavez RN) Mother Diabetes Heart disease Myocardial infarction Hypertension Irritable bowel syndrome (IBS) Father Irritable bowel syndrome (IBS) Sister Heart disease Brother Heart disease Other Crohn's disease Kidney disease No family history of adverse response to anesthesia Denies family history of Ovarian cancer Prostate cancer Breast cancer Colorectal cancer Past Surgical History Surgical History (Updated 09/01/19 @ 08:59 by Ruthie Chavez RN) History of adenoidectomy History of appendectomy History of bronchoscopy History of cataract surgery bilateral History of colectomy History of colonoscopy History of colostomy History of ERCP History of herniorrhaphy around stoma History of lobectomy of lung left lower lobe History of lung surgery History of partial pancreatectomy [facility] (Dr Escobar) ~20 years ago History of tonsillectomy S/P epidural steroid injection Past Anesthesia History No Hx of Anesthesia Complications and No Family Hx of Anesthesia Complications History of PONV No Hx of PONV and No Hx of Motion Sickness Social History Smoking Status: Former smoker (Smoked 8-10 years - 1PPD ) tobacco type: cigarettes Do You Dip or Chew Tobacco: No (quit) Smoking End Date: ~1956 Hx Alcohol Use: Yes Alcohol type: other alcohol intake frequency: 0-2 drinks per day (2 whiskey drinks daily ) Hx Substance Use: No substance use type: does not use Review of Systems Patient denies chest pain, shortness of breath, dyspnea on exertion, reflux, cough, wheezing, palpitations. No hx of seizures, stroke, [place], apnea/snoring. No hx of blood clots or blood transfusions No recent steroid use Physical Exam Vital Signs VITALS BP 113/62 P 52 TEMP 97.5 SP02 94% RESP 16 Constitutional no acute distress ENMT Mouth: no TMJ clicking, no chipped teeth and no loose teeth Thyromental Distance: < 3.5 Finger Breadths (3.0) Mallampati Class: II Upper right permanent implant Crowns on molars Neck + limited neck extension (significant ) Respiratory normal respiratory effort; no respiratory distress Auscultation: lungs clear to auscultation bilaterally and + diminished lung sounds (LLL); no wheezes Cardiovascular Rate/Rhythm: regular rate and regular rhythm Heart Sounds: + murmur (I-II/ systolic murmur ) Vessels: no carotid bruit Extremities: + edema (1+ pitting edema bilaterally ) Musculoskeletal Spine: no pain with cervical ROM Neurologic moves all extremities Psychiatric Orientation: alert Testing Laboratory Results 09/07/19 13:15 09/07/19 13:15 PT 11.8 Seconds (9.0-12.0) 09/07/19 13:15 INR 1.2 (0.9-1.1) H 09/07/19 13:15 APTT 30.6 Seconds (21.0-31.0) 09/07/19 13:15 Urine Color Dark Yellow 09/07/19 13:15 Urine Appearance Clear (Clear) 09/07/19 13:15 Urine pH 6.5 (4.5-7.5) 09/07/19 13:15 Ur Specific [place] 1.024 (1.000-1.030) 09/07/19 13:15 Urine Protein Negative (Negative) 09/07/19 13:15 Urine Glucose (UA) 3+ (Negative) H 09/07/19 13:15 Urine Ketones Negative (Negative) 09/07/19 13:15 Urine Nitrite Negative (Negative) 09/07/19 13:15 Ur Leukocyte Esterase Negative (Negative) 09/07/19 13:15 Blood Type AB Negative 09/07/19 13:15 Antibody Screen NEGATIVE 09/07/19 13:15 Electrocardiogram Date: 08/03/19 Findings: + NSR @ (62) LVH and ST-T change (voltage criteria plus ST/T abnormality) (done by cardio at cardio clearance appt) Chest X-Ray Date: 09/07/19 Findings: + NAD Several stable benign mediastinal and/or hilar nodes. Chronic blunting left lateral costophrenic angle. Calcified granuloma peripheral aspect right mid lung. Echocardiogram Date: 03/02/17 EF: >70% RWMA: + none Left ventricle hyperdynamic. Left ventricular cavity is small. Echo findings are consistent with hypertrophic cardiomyopathy. Echo findings are consistent with left ventricular outflow obstruction. Mitral valve shows systolic anterior motion of the chordal apparatus. Mild TR
--- NOTE | 2019-09-07 13:52 | XRay Report ---
XR chest Pre-admission PA/Lat CLINICAL HISTORY: pt preoperative evaluation COMPARISON STUDY: 04/18/2019 FINDINGS: Several stable benign mediastinal and/or hilar nodes. Chronic blunting left lateral costoph renic angle. Calcified granuloma peripheral aspect right mid lung. No acute infiltrate. IMPRESSION: Chronic change as described. No acute process. ACT 112: Negative or not required by law. The above report was generated using voice recognition software. It may contain grammatical, syntax or spelling errors. Electronically signed by: Juan R Chavez M.D. 09/07/2019 1:51 PM
[2019-09-07 13:53] LABS: Basophils # (auto) 0.05 K/uL (0-0.2); Basophils % (auto) 0.7 %; Eosinophils # (auto) 0.14 K/uL (0-0.5); Eosinophils % (auto) 1.8 %; Hematocrit (blood only) 46.6 % (42-52); Hemoglobin 15.9 g/dL (14.0-18.0); Immature Granulocytes # (auto) 0.02 K/uL (0.00-0.02); Immature Granulocytes % (auto) 0.3 %; Lymphocytes # (auto) 0.62 K/uL (1.2-3.4); Lymphocytes % (auto) 8.1 %; Mean Corpuscular Hemoglobin 29.4 pg (25-34); Mean Corpuscular Hgb Conc 34.1 g/dL (32-36); Mean Corpuscular Volume 86.3 fL (80-100); Mean Platelet Volume 12.8 fL (7.4-10.4); Monocytes # (auto) 0.87 K/uL (0.11-0.59); Monocytes % (auto) 11.4 %; Neutrophils # (auto) 5.92 K/uL (1.4-6.5); Neutrophils % (auto) 77.7 %; Platelet Count 152 K/uL (130-400); RDW Standard Deviation 43.7 fL (36.4-46.3); White Blood Count 7.62 K/uL (4.8-10.8)
[2019-09-07 13:54] LABS: Appearance Urine Clear (Clear); Bilirubin Urine Negative (Negative); Blood Urine Negative (Negative); Color Urine Dark Yellow; Glucose Urine UA 3+ (Negative); Ketones Urine Negative (Negative); Leukocyte Esterase Urine Negative (Negative); Nitrite Urine Negative (Negative); Protein Urine Negative (Negative); Specific Gravity Urine 1.024 (1.000-1.030); Urobilinogen Urine Negative (Negative); pH Urine 6.5 (4.5-7.5)
[2019-09-07 14:05] LABS: INR 1.2 (0.9-1.1); Partial Thromboplastin Ratio 1.1; Partial Thromboplastin Time 30.6 Seconds (21.0-31.0); Prothrombin Time 11.8 Seconds (9.0-12.0)
[2019-09-07 16:05] LABS: BUN Creatinine Ratio 12.8 (10-20); Calcium 9.3 mg/dl (8.5-10.1); Creatinine Clr Calc Pharmacy 53.8 ml/min; Est GFR (African American) 74.8; Est GFR (Non-African American) 64.6; Potassium 4.4 mmol/L (3.5-5.1)
[~2019-09-21 08:50] MED LIST changes: +ACETAMINOPHEN 500 MG TAB PO SCH; -BIMA0.01 OPB; -CALC200T PO; +CEFAZOLIN 2000MG 2,000 MG/15 ML SYR IV SCH; -CRD200 PO; +CeleBREX 200 MG CAP PO SCH; -FLM4 PO; +GABAPENTIN 300 MG CAP PO SCH; -INSDGI SC; -INSPMPHMLG SQ; -LEVO50TA6 PO; +LR 15ML/HR IV SCH; -PRS5 PO; -RIVA1.5T PO; -VNTHFA/IN INH
--- NOTE | 2019-09-21 11:03 | History & Physical Bridge Note ---
Date of Service September 21, 2019 History & Physical Bridge Note I have examined the patient, reviewed the History & Physical and in the interval since the performance of the History & Physical I have noted the following changes of clinical significance: no changes noted
--- NOTE | 2019-09-21 11:04 | History & Physical Report ---
Date of Service September 21, 2019 Assessment & Plan (1) Neurogenic claudication due to lumbar spinal stenosis: L4-L5 decompression fusion Present on Admission?: Yes History of Present Illness Chief Complaint: Back and bilateral leg pain Primary Care Provider: Bryanna Orr MD This is a 89-year-old male who presents with chronic persistent back and bilateral leg pain. Failing extensive course of nonoperative care is here for surgical intervention. Allergies Allergy/AdvReac Type Severity Reaction Status Date / Time atorvastatin AdvReac Intermediate leg pain Verified 09/21/19 09:28 Home Medications Home Medications Medication Instructions Recorded Confirmed Type albuterol sulfate [Ventolin HFA] 2 puff INHALATION Q4 PRN 07/16/18 09/21/19 History amiodarone [Pacerone] 200 mg PO 1700 07/16/18 09/21/19 History bimatoprost 1 drp OPB PM 07/16/18 09/21/19 History cholecalciferol (vitamin D3) 1,000 unit PO BID 07/16/18 09/21/19 History [Vitamin D3] finasteride [Proscar] 5 mg PO QAM 07/16/18 09/21/19 History ipratropium-albuterol 3 ml INHALATION Q4 PRN 07/16/18 09/21/19 History insulin syringe-needle U-100 1 mL #10 ea 02/08/19 09/13/19 History 31 gauge x 5/16" lancets 33 gauge #100 ea 02/08/19 09/13/19 History vit C 250 mg-E 200 unit-zinc 40 1 tab PO QAM 02/08/19 09/21/19 History mg-copper 1 [id number] capsule OneTouch Ultra Blue Test Strip #200 ea NS 07/05/19 09/13/19 Rx guaifenesin 600 mg tablet, 1,200 mg PO Q12 PRN tab 08/02/19 09/21/19 History extended release 12 hr calcium carbonate-vitamin D3 1 cap PO QPM 09/01/19 09/21/19 History [Calcium 600 + D(3)] insulin asp prt-insulin aspart 30 - 45 sliding scale dose SUBCUT 09/01/19 09/21/19 History [Novolog Mix 70-30 U-100 Insuln] BIDM rivaroxaban [Xarelto] 20 mg PO QPM 09/01/19 09/21/19 History rosuvastatin [Crestor] 5 mg PO QPM 09/01/19 09/21/19 History levothyroxine 50 mcg tablet 50 mcg PO QAM #90 tab 09/17/19 09/21/19 Rx Past Med/Surg History Family History (Updated 09/01/19 @ 08:45 by Ruthie Chavez RN) Mother Diabetes Heart disease Myocardial infarction Hypertension Irritable bowel syndrome (IBS) Father Irritable bowel syndrome (IBS) Sister Heart disease Brother Heart disease Other Crohn's disease Kidney disease No family history of adverse response to anesthesia Denies family history of Ovarian cancer Prostate cancer Breast cancer Colorectal cancer Social History (Updated 08/02/19 @ 13:27 by Francis Osman) Preferred Language: Telugu Communication Ability: Effective Curator Herbarium Required: No Beliefs That Will Affect Care: None marital status: Current Living Situation: Spouse Current Living Situation Comment: House current occupational status: retired Other Information That Helps Us Care for You: No Feels Safe at Home: Yes Safety Concerns: Feels Safe At This Time Smoking Status: Former smoker Tobacco Type: cigarettes ; Do You Dip or Chew Tobacco: No (quit) ; Smoking End Date: ~1956 ; Second Hand Exposure: Yes (hx) ; Tobacco Cessation Education Requested by Patient: No Hx Alcohol Use: Yes Alcohol type: other Alcohol Intake Frequency: Weekly Alcohol Intake Frequency Comment: 1 every couple days Hx Substance Use: No Dental Care, Regularly: Yes Seatbelt Use: always Physical Exam Physical Exam: Patient is alert and oriented neurologically intact. Results & Data Vital Signs (Past 12 Hours) Vital Signs Temp Pulse Resp BP Pulse Ox 09/21/19 09:30 36.5 C 57 L 20 150/87 H 94
[2019-09-21] MEDS ORDERED: BACITRACIN INJ 50,000 UNIT VIAL ONE (11:11)
[2019-09-21] MEDS ORDERED: BUPIVACAINE/EPINEPHRINE 0.25% 1:200,000 30 ML VIAL ONE (11:11)
[2019-09-21] MEDS ORDERED: fentaNYL citrate 100 MCG/2 ML VIAL ONE ×2 (11:19→13:40)
[2019-09-21] MEDS ORDERED: ROCURONIUM BROMIDE 10 MG/ML 5 ML VIAL ONE (11:20)
[2019-09-21] MEDS ORDERED: LIDOCAINE HCL 2% 2 ML VIAL/AMP(20MG/ML) INFIL ONE (11:20)
[2019-09-21] MEDS ORDERED: PROPOFOL IV EMULSION 10 MG/ML 20 ML VIAL IV ONE (11:20)
[2019-09-21] MEDS ORDERED: NEOSTIGMINE METHYLSULFATE 1 MG/ML 10ML VIAL ONE (11:20)
[2019-09-21] MEDS ORDERED: GLYCOPYRROLATE 0.2 MG/ML VIAL ONE (11:20)
[2019-09-21] MEDS ORDERED: ONDANSETRON INJ 2 MG/ML 2 ML VIAL ONE ×2 (11:20→13:40)
[2019-09-21] MEDS ORDERED: FLOSEAL HEMOSTATIC MATRIX 10ML TOP ONE (12:58)
--- NOTE | 2019-09-21 13:16 | Operative Report ---
Post Operative Report Pre & Post Diagnosis Operation Date: 09/21/19 10:55 Pre-Op Diagnosis: Lumbar spinal stenosis with neurogenic claudication Post-Op Diagnosis: Lumbar spinal stenosis with neurogenic claudication I identified the patient and participated in the time-out.: Yes Procedure Operation Date: 09/21/19 10:55 Actual Procedures #1 lumbar decompression with bilateral medial facetectomies L3-4 and L4-5. #2 posterior spinal fusion L4-5 per #3 placed posterior instrumentation L4-5 per #4 placement of locally harvested morselized autograft in the posterior lateral gutters. #5 placement infuse collagen sponge, master graft in the posterior lateral gutters. Surgeon Kamron Sol, DO Sleeve Bottom Feller None Estimated Blood Loss 50 Findings Consistent with Post-Op Diagnosis Specimens None Indications This is a 89-year-old male who presents with above-mentioned diagnosis after failed extensive course of nonoperative care like to go the beverage procedure. Description of Procedure Patient was met with identified informed consent obtained. Patient was then taken to the operative suite underwent intubation placed in a prone position the C[place]orro table on top of the Kole frame. All bony prominences well-padded eyes inspected to ensure no external pressure placed upon the. This point lumbar spine was prepped and draped in normal sterile fashion. Sharp dissection with the assistance of Bovie cautery performed down to and exposing the lamina and transverse processes of L4 and L5. From caudal cephalad fashion complete laminectomy of L4 partial laminectomy of L3 was performed including bilateral medial facetectomies to address all spinal stenosis. Pedicle screws were then placed in L4 and L5 bilaterally with assistance of fluoroscopy the proper sized aly locked into position. The transverse processes of L4 and L5 were then burred to subcortical bleeding bone. Infuse collagen sponge master graft local autograft was then placed in the posterior lateral gutters. 15 round RUI drain inserted. Incision was then closed with 1 Vicryl in the fascia 2-0 Vicryl subcutaneously and 4 Monocryl for final skin closure. Steri-Strip sterile dressings placed. Patient will continue PACU stable condition. Please note spinal cord monitoring was utilized that the procedure no changes noted. I attest to the content of the Intraoperative Record and any orders documented therein. Any exceptions are noted below.
[2019-09-21] MEDS ORDERED: ePHEDrine sulfate 50 MG/ML AMP IV PRN (13:18)
[2019-09-21] MEDS ORDERED: ATROPINE SULFATE 0.1 MG/ML 10ML SYR IV PRN (13:18)
[2019-09-21] MEDS ORDERED: NALOXONE HCL 0.4 MG/1 ML VIAL/CARP IV PRN ×2 (13:18→14:46)
[2019-09-21] MEDS ORDERED: ONDANSETRON INJ 2 MG/ML 2 ML VIAL IV PRN ×2 (13:18→14:46)
[2019-09-21] MEDS ORDERED: FLUMAZENIL 0.1 MG/1 ML 10 ML VIAL IV PRN (13:18)
[2019-09-21] MEDS ORDERED: LABETALOL HCL IV 5 MG/ML 20ML IV PRN (13:18)
[2019-09-21] MEDS ORDERED: HYDROmorphone INJ 1 MG/ML SYRINGE IV PRN ×2 (13:18→14:46)
[2019-09-21] MEDS ORDERED: PROMETHAZINE HCL 12.5 MG in SODIUM CHLORIDE 0.9% 50 ML IV PRN ×2 (13:18→14:46)
[2019-09-21] MEDS: fentaNYL citrate 100 MCG/2 ML VIAL IV PRN ×2 (13:43→13:48)
--- NOTE | 2019-09-21 13:45 | Fluoroscopy Report ---
FL lumbar spine 2-3V CLINICAL HISTORY: L4-L5 FUSION COMPARISON STUDY: Lumbar spine MRI April 11, 2019. FLUOROSCOPY TIME: 16 seconds. FLUOROSCOPIC IMAGES: 2 FINDINGS: Images demonstrate an L4-L5 posterior to compression with bilateral pedicle screws. Interco nnecting rods are noted. Hardware is intact. There are no unexpected radiopaque foreign bodies. IMPRESSION: Fluoroscopy provided during L4-L5 posterior decompression and bilateral pedicle screw fu kalen. ACT 112: Negative or not required by law. Electronically signed by: Bib Castanon M.D. 09/21/2019 1:44 PM
--- NOTE | 2019-09-21 14:10 | Anesthesiology Progress Note ---
Date of Service September 21, 2019 Anesthesia Post Procedure Vital Signs Vital Signs: Temp Pulse Pulse Resp BP Pulse Ox 09/21/19 14:00 36.7 C 62 16 104/58 L 98 09/21/19 13:50 63 16 113/63 99 09/21/19 13:40 62 16 111/61 99 09/21/19 13:31 36.6 C 66 16 129/70 100 09/21/19 09:30 36.5 C 57 L 20 150/87 H 94 Pain Intensity Back: Pain Intensity: 4 Transfer of Care Handoff Completed per policy Notes Mental Status: alert / awake / arousable Patient Amnestic to Procedure: Yes Nausea / Vomiting: adequately controlled Pain: adequately controlled Airway Patency, RR, SpO2: stable & adequate BP & HR: stable & adequate Hydration State: stable & adequate Anesthetic Complications: no major complications apparent
[2019-09-21] MEDS ORDERED: ONDANSETRON 4 MG OD TAB PO PRN (14:46)
[2019-09-21] MEDS ORDERED: LORazepam 0.5 MG/1 ML VIAL IV PRN (14:46)
[2019-09-21] MEDS ORDERED: ALBUTEROL HFA 8 GM INHALER INH PRN (14:46)
[2019-09-21] MEDS ORDERED: OXYCODONE HCL IR 5 MG TAB (IMMEDIATE RELEASE) PO PRN (14:46)
[2019-09-21] MEDS ORDERED: HYDROmorphone INJ 0.5 MG/0.5 ML SYR IV PRN (14:46)
[2019-09-21] MEDS ORDERED: ALUMINUM/MAGNESIUM SUSP 30 ML UDC PO PRN (14:46)
[2019-09-21] MEDS ORDERED: ACETAMINOPHEN 1,000 MG/100 ML VIAL IV PRN (14:46)
[2019-09-21] MEDS ORDERED: ACETAMINOPHEN 500 MG TAB PO PRN (14:46)
[2019-09-21] MEDS ORDERED: TRAMADOL HCL 50 MG TABLET PO PRN (14:46)
[2019-09-21] MEDS ORDERED: ALBUT/IPRATROP 3MG/0.5MG NEB 3 ML VIAL INH PRN (14:46)
[2019-09-21] MEDS ORDERED: LORazepam 0.5 MG TAB PO PRN (14:46)
[2019-09-21] MEDS ORDERED: METOCLOPRAMIDE HCL INJ 5 MG/ML 2 ML VIAL IV PRN (14:46)
[2019-09-21] MEDS ORDERED: bisacodyL 10 MG SUPP PR PRN (14:46)
[2019-09-21] MEDS ORDERED: DO NOT ADMINISTER PNEUMOCOCCAL VACCINE PRN (14:46)
[2019-09-21] MEDS ORDERED: SOD PHOSPHATE/SOD BIPHOSPHATE ENEMA 132 ML BTL PR PRN (14:46)
[2019-09-21] MEDS ORDERED: MAGNESIUM HYDROXIDE SUSP 30 ML UDC PO PRN (14:46)
[2019-09-21] MEDS ORDERED: FAMOTIDINE 20 MG TAB PO PRN (14:46)
[2019-09-21] MEDS ORDERED: DO NOT ADMINISTER FLU VACCINE PRN (14:46)
[2019-09-21] MEDS: SODIUM CHLORIDE 0.9% 1000ML 1,000 ML IV SCH (15:31)
--- NOTE | 2019-09-21 16:05 | Hospitalist Consultation ---
Date of Consultation September 21, 2019 Assessment & Plan (1) Neurogenic claudication due to lumbar spinal stenosis: s/p decompression and fusion pain control per primary, resume Xeralto when ok with primary monitor for acute blood loss anemia (2) Hypothyroidism: continue levothyroxine (3) Ulcerative colitis: Has ostomy, not currently under treatment (4) HLD (hyperlipidemia): continue statin (5) Chronic a-fib: Continue amiodarone and Xeralto when ok with primary (6) COPD (chronic obstructive pulmonary disease): continue home inhalers (7) Diabetes type 2, uncontrolled: consult glycemic pharmacist History of Present Illness Attending Physician: Kamron Sol, DO History of Present Illness Mr. Benjamin is post decompression and fusion with Dr. Sol today. He is a bit groggy from anesthesia yet but has no complaints. Allergies Allergy/AdvReac Type Severity Reaction Status Date / Time atorvastatin AdvReac Intermediate leg pain Verified 09/21/19 09:28 Home Medications Home Medications Medication Instructions Recorded Confirmed Type albuterol sulfate [Ventolin HFA] 2 puff INHALATION Q4 PRN 07/16/18 09/21/19 History amiodarone [Pacerone] 200 mg PO 1700 07/16/18 09/21/19 History bimatoprost 1 drp OPB PM 07/16/18 09/21/19 History cholecalciferol (vitamin D3) 1,000 unit PO BID 07/16/18 09/21/19 History [Vitamin D3] finasteride [Proscar] 5 mg PO QAM 07/16/18 09/21/19 History ipratropium-albuterol 3 ml INHALATION Q4 PRN 07/16/18 09/21/19 History insulin syringe-needle U-100 1 mL #10 ea 02/08/19 09/13/19 History 31 gauge x 5/16" lancets 33 gauge #100 ea 02/08/19 09/13/19 History vit C 250 mg-E 200 unit-zinc 40 1 tab PO QAM 02/08/19 09/21/19 History mg-copper 1 mg-ngrldx-fmxgpw capsule OneTouch Ultra Blue Test Strip #200 ea NS 07/05/19 09/13/19 Rx guaifenesin 600 mg tablet, 1,200 mg PO Q12 PRN tab 08/02/19 09/21/19 History extended release 12 hr calcium carbonate-vitamin D3 1 cap PO QPM 09/01/19 09/21/19 History [Calcium 600 + D(3)] insulin asp prt-insulin aspart 30 - 45 sliding scale dose SUBCUT 09/01/19 09/21/19 History [Novolog Mix 70-30 U-100 Insuln] BIDM rivaroxaban [Xarelto] 20 mg PO QPM 09/01/19 09/21/19 History rosuvastatin [Crestor] 5 mg PO QPM 09/01/19 09/21/19 History levothyroxine 50 mcg tablet 50 mcg PO QAM #90 tab 09/17/19 09/21/19 Rx Patient History Medical History BPH (benign prostatic hyperplasia) CHF (congestive heart failure) Pt denies issues Chronic a-fib Controlled and stable Chronic back pain 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 has not been using On anticoagulant therapy Osteoarthritis Osteoporosis Pancreatitis ~20 years ago Sick sinus syndrome Reported history per cardio note- asymptomatic on amiodarone- beta angie on hold Ulcerative colitis hx Family History (Updated 09/01/19 @ 08:45 by Ruthie Chavez RN) Mother Diabetes Heart disease Myocardial infarction Hypertension Irritable bowel syndrome (IBS) Father Irritable bowel syndrome (IBS) Sister Heart disease Brother Heart disease Other Crohn's disease Kidney disease No family history of adverse response to anesthesia Denies family history of Ovarian cancer Prostate cancer Breast cancer Colorectal cancer Social History Preferred Language: Norwegian Communication Ability: Effective Supervisor Marble Required: No Beliefs That Will Affect Care: None marital status: Current Living Situation: Spouse Current Living Situation Comment: House current occupational status: retired Other Information That Helps Us Care for You: No Feels Safe at Home: Yes Safety Concerns: Feels Safe At This Time Smoking Status: Former smoker Tobacco Type: cigarettes ; Do You Dip or Chew Tobacco: No (quit) ; Smoking End Date: ~1956 ; Second Hand Exposure: Yes (hx) ; Tobacco Cessation Education Requested by Patient: No Hx Alcohol Use: Yes Alcohol type: other Alcohol Intake Frequency: Weekly Alcohol Intake Frequency Comment: 1 every couple days Hx Substance Use: No Dental Care, Regularly: Yes Seatbelt Use: always Review of Systems Constitutional: no fever, no chills and no sweats Respiratory: no cough, no dyspnea and no wheezing Cardiovascular: no chest pain, no dyspnea and no lightheadedness Gastrointestinal: no nausea and no vomiting Genitourinary: no dysuria Integumentary: no rash Neurologic: no dizziness and no headache(s) Physical Exam Physical Exam: General: no distress Eyes: normal inspection, PERLL Respiratory: chest non tender, clear to auscultation, normal breath sounds, no respiratory distress, no accessory muscle use Cardiac: regular rate and rhythm, no rub or gallop, llsb 3/6 systolic murmur, no edema, no jvd GI/: active bowel sounds, no abd pain or tenderness, soft, non distended Extremities: normal range of motion, normal strength, non tender Neuro/Psych: alert and oriented x 3, normal mood and affect Skin: normal color, dry Results & Data ([facility]) Vital Signs (Past 12 Hours) Vital Signs Temp Pulse Pulse Resp BP Pulse Ox 09/21/19 15:00 36.2 C L 60 16 116/68 94 09/21/19 14:32 36.6 C 63 16 116/69 94 09/21/19 14:15 63 16 105/60 98 09/21/19 14:00 36.7 C 62 16 104/58 L 98 09/21/19 13:50 63 16 113/63 99 09/21/19 13:40 62 16 111/61 99 09/21/19 13:31 36.6 C 66 16 129/70 100 09/21/19 09:30 36.5 C 57 L 20 150/87 H 94 PG Care Time/CCT Total # of Minutes Spent Total Time Spent with Patient: Total time spent is greater than 50% in coordination of care (as documented) at patient's floor/unit and/or counseling patient: Coding Level of Care Code 40559 Inpt Consult Level 4 Diagnoses Neurogenic claudication due to lumbar spinal stenosis M48.062 Hypothyroidism E03.9 Hypothyroidism type: unspecified Ulcerative colitis K51.90 HLD (hyperlipidemia) E78.5 Chronic a-fib I48.2 COPD (chronic obstructive pulmonary disease) J44.9 COPD type: unspecified COPD Diabetes type 2, uncontrolled E11.65 (1) Hypothyroidism Hypothyroidism type: unspecified Qualified Code(s): E03.9 - Hypothyroidism, unspecified (2) COPD (chronic obstructive pulmonary disease) COPD type: unspecified COPD Qualified Code(s): J44.9 - Chronic obstructive pulmonary disease, unspecified
[2019-09-21] MEDS ORDERED: PHARMACY GLYCEMIC MGMT CONSULT PRN (16:23)
[2019-09-21] MEDS ORDERED: CARBOHYDRATES FOR HYPOGLYCEMIA PO PRN (16:30)
[2019-09-21] MEDS ORDERED: GLUCOSE 10 TABS/TUBE PO PRN (16:30)
[2019-09-21] MEDS ORDERED: DEXTROSE 50% 50 ML SYRINGE IV PRN (16:30)
[2019-09-21] MEDS ORDERED: GLUCAGON FOR INJ 1 MG VIAL IM PRN (16:30)
[2019-09-21] MEDS ORDERED: GLUCOSE 40% GEL 15 GM TUBE PO PRN (16:30)
[2019-09-21] MEDS: AMIODARONE 200 MG TAB PO SCH (17:36)
[2019-09-21] MEDS: INSULIN ASPART 100 UNITS/ML 3 ML PEN SC SCH ×2 (18:23→21:24)
[2019-09-21] MEDS: CEFAZOLIN 2000MG 2,000 MG/15 ML SYR IV SCH (18:59)
[2019-09-21] MEDS: CHOLECALCIFEROL 1,000 UNITS 25 MCG TAB PO SCH (21:05)
[2019-09-21] MEDS: DOCUSATE SODIUM/SENNA 50/8.6MG TAB PO SCH (21:05)
[2019-09-21] MEDS: CALCIUM 600MG + VIT D 400 IU TAB PO SCH (21:05)
[2019-09-21] MEDS: BIMATOPROST 0.01% OP SOLN 2.5 ML BTL OP SCH (21:05)
[2019-09-21] MEDS: ROSUVASTATIN CALCIUM 5 MG TAB PO SCH (21:05)
[2019-09-21] MEDS: INSULIN GLARGINE SOLOSTAR 100 UNITS/ML 3 ML PEN SC SCH (21:23)
[2019-09-22] MEDS: SODIUM CHLORIDE 0.9% 1000ML 1,000 ML IV SCH (01:23)
[2019-09-22] MEDS: CEFAZOLIN 2000MG 2,000 MG/15 ML SYR IV SCH (01:23)
[2019-09-22] MEDS ORDERED: INSULIN ASPART 100 UNITS/ML 3 ML PEN SC ONE (02:00)
[2019-09-22 05:48] LABS: Basophils # (auto) 0.01 K/uL (0-0.2); Basophils % (auto) 0.1 %; Hematocrit (blood only) 42.3 % (42-52); Hemoglobin 14.3 g/dL (14.0-18.0); Immature Granulocytes # (auto) 0.05 K/uL (0.00-0.02); Immature Granulocytes % (auto) 0.4 %; Lymphocytes % (auto) 3.6 %; Mean Corpuscular Hemoglobin 29.7 pg (25-34); Mean Corpuscular Hgb Conc 33.8 g/dL (32-36); Mean Corpuscular Volume 87.8 fL (80-100); Mean Platelet Volume 12.8 fL (7.4-10.4); Monocytes # (auto) 1.32 K/uL (0.11-0.59); Monocytes % (auto) 9.6 %; Neutrophils # (auto) 11.92 K/uL (1.4-6.5); Neutrophils % (auto) 86.3 %; Platelet Count 151 K/uL (130-400); RDW Coefficient of Variation 13.8 % (11.5-14.5); RDW Standard Deviation 44.7 fL (36.4-46.3); Red Blood Count 4.82 M/uL (4.7-6.1)
[2019-09-22 06:11] LABS: BUN Creatinine Ratio 13.1 (10-20); Calcium 8.6 mg/dl (8.5-10.1); Creatinine Clr Calc Pharmacy 50.2 ml/min; Est GFR (African American) 69.1; Est GFR (Non-African American) 59.6; Potassium 4.2 mmol/L (3.5-5.1)
[2019-09-22] MEDS: LEVOTHYROXINE SODIUM 50 MCG TABLET PO SCH (06:14)
[2019-09-22] MEDS: POLYETHYLENE (MIRALAX) 17 GM PACK PO SCH ×3 (06:14→19:05)
[2019-09-22] MEDS: CEROVITE ADV FORMULA TAB PO SCH (08:58)
[2019-09-22] MEDS: FINASTERIDE 5 MG TAB PO SCH (08:59)
[2019-09-22] MEDS: CHOLECALCIFEROL 1,000 UNITS 25 MCG TAB PO SCH ×2 (08:59→21:23)
[2019-09-22] MEDS: INSULIN GLARGINE SOLOSTAR 100 UNITS/ML 3 ML PEN SC SCH ×2 (09:00→21:27)
[2019-09-22] MEDS: INSULIN ASPART 100 UNITS/ML 3 ML PEN SC SCH ×4 (09:02→21:27)
[2019-09-22] MEDS ORDERED: SODIUM CHLORIDE 0.9% 500 ML IV SCH (11:15)
--- NOTE | 2019-09-22 12:58 | Orthopedic Progress Note ---
Date of Service September 22, 2019 Assessment & Plan (1) Neurogenic claudication due to lumbar spinal stenosis: At this time we will continue physical therapy monitor his progress consider possible rehab. Present on Admission?: Yes Admission and Anticipated Discharge Date Admission Date: September 21, 2019 Subjective Back pain controlled leg symptoms improved. Physical Exam Physical Exam: Patient is sitting in a chair at bedside is good strength testing. Appears comfortable. Results & Data ([facility]) Vital Signs (Past 12 Hours) Vital Signs Temp Pulse Pulse Resp BP Pulse Ox 09/22/19 11:39 36.6 C 69 14 118/64 95 09/22/19 07:43 36.3 C L 74 14 95/51 L 91 09/22/19 02:34 36.7 C 75 16 95/52 L 91
--- NOTE | 2019-09-22 14:54 | Hospitalist Progress Note ---
Date of Service September 22, 2019 Assessment & Plan (1) Neurogenic claudication due to lumbar spinal stenosis: s/p decompression and fusion pain control per primary, resume Xeralto when ok with primary hgb stable (2) Hypothyroidism: continue levothyroxine (3) Ulcerative colitis: Has ostomy, not currently under treatment (4) HLD (hyperlipidemia): continue statin (5) Chronic a-fib: Continue amiodarone, resume Xeralto when ok with primary (6) COPD (chronic obstructive pulmonary disease): continue home inhalers (7) Diabetes type 2, uncontrolled: consult glycemic pharmacist (8) BPH (benign prostatic hyperplasia): with urinary retention - continue to straight cath as needed Given 500 ml bolus today as urinary output was low and blood pressure was a little low, straight cathed this afternoon for 700 mls. Medicine will sign off at this time. Please call with any questions or concerns Admission and Anticipated Discharge Date Admission Date: September 21, 2019 Subjective Mr. Benjamin feels well today, no complaints. ROS Constitutional: no chills, aches, sweats or fever Respiratory: no sob,cough, sputum, or wheezing Cardiac: no chest pain, palpitations, edema, orthopnea or lightheadedness GI: no abdominal pain, nausea, vomiting, diarrhea or constipation : no dysuria or hesitancy Extremities: no joint pain or weakness Skin: no rash All other systems reviewed and negative Physical Exam Physical Exam: General: no distress Eyes: normal inspection, PERLL Respiratory: chest non tender, clear to auscultation, normal breath sounds, no respiratory distress, no accessory muscle use Cardiac: regular rate and rhythm, no rub or gallop, no murmur, no edema, no jvd GI/: active bowel sounds, no abd pain or tenderness, soft, non distended Extremities: normal range of motion, normal strength, non tender Neuro/Psych: alert and oriented x 3, normal mood and affect Skin: normal color, dry Results & Data ([facility]) Vital Signs (Past 12 Hours) Vital Signs Temp Pulse Resp BP Pulse Ox 09/22/19 11:39 36.6 C 69 14 118/64 95 09/22/19 07:43 36.3 C L 74 14 95/51 L 91 PG Care Time/CCT Total # of Minutes Spent Total Time Spent with Patient: Total time spent is greater than 50% in coordination of care (as documented) at patient's floor/unit and/or counseling patient: Coding Level of Care Code 72068 Subseq Hosp Care Lvl 2 Diagnoses Neurogenic claudication due to lumbar spinal stenosis M48.062 Hypothyroidism E03.9 Hypothyroidism type: unspecified Ulcerative colitis K51.90 HLD (hyperlipidemia) E78.5 Chronic a-fib I48.2 COPD (chronic obstructive pulmonary disease) J44.9 COPD type: unspecified COPD Diabetes type 2, uncontrolled E11.65 BPH (benign prostatic hyperplasia) N40.0 (1) Hypothyroidism Hypothyroidism type: unspecified Qualified Code(s): E03.9 - Hypothyroidism, unspecified (2) COPD (chronic obstructive pulmonary disease) COPD type: unspecified COPD Qualified Code(s): J44.9 - Chronic obstructive pulmonary disease, unspecified
--- NOTE | 2019-09-22 15:52 | Pharmacy Report ---
Glycemic Control Consultation - Date of Service September 22, 2019 - Scope Scope: Glycemic Pharmacist consulted for glycemic control and to write orders per [facility] inpatient glycemic control protocol. - Objective Weight: 85.003 kg Accuchecks BSG (last 24hrs): 09/21/19 09/21/19 09/22/19 17:21 20:55 02:12 Glucose POC Glucose 171 H 256 H 279 H 09/22/19 09/22/19 09/22/19 05:24 07:59 12:06 Glucose 191 H POC Glucose 163 H 218 H Laboratory Data (last 24hrs): 09/22/19 05:24 Potassium 4.2 Carbon Dioxide 24 Anion Gap 7.0 Creatinine 1.10 Est Cr Clr Drug Dosing 50.2 - Recent Pertinent Medications Outpatient Anti-diabetic Regimen: * Novolog 70/30 Mix with doses running from 30-45 units BIDM * A1c = 8.9 % 04/12/19 The patient is currently receiving: * Basal insulin: Lantus 15 units every 12 hours * Correctional Insulin: Novolog Correction per scale ACHS Goal Range: Low 110 mg/dL - High 150 mg/dL Correction Factor: 25 mg/dL/unit * Prandial insulin: Per carb ratio of 1 unit per 9 grams CHO consumed Risk Factors for Insulin Resistance: * Recent Surgery: POD 1 for lumbar surgery * Diet: T2DM - Assessment & Plan Assessment & Plan: ASSESSMENT: * Mr Benjamin is an 89 y/o M well known to the glycemic service. Previously, he had tolerated around 30 units of Lantus per day. Will resume this as Lantus 15 units SQ BID as this provided adequate fasting blood sugars. * For Novolog, parameters were originally chosen based upon TDD of 60 units. Patient's BSG trended upwards at lunch so will tighten to weight-based stress of 3. PLAN FOR INPATIENT GLYCEMIC CONTROL: * Basal insulin * Lantus 15 units SQ BID * Bolus insulin * NovoLog per scale ACHS or Q6hrs while NPO * Goal Range: Low 110 mg/dL - High 140 mg/dL * Correction Factor: 20 mg/dL/unit * Nutritional / Prandial insulin per carb ratio of 1 unit per 7 grams CHO consumed * Please note that the plan above was derived based on current level of insulin resistance and hospital stress. These recommendations are appropriate for inpatient admission only. Plan of care upon discharge will need to be reassessed to avoid potential outpatient hypo/hyperglycemia. Thank you.
[2019-09-22] MEDS: AMIODARONE 200 MG TAB PO SCH (17:14)
[2019-09-22] MEDS ORDERED: Nursing to Pharmacy Communication ONE (17:51)
[2019-09-22] MEDS: BIMATOPROST 0.01% OP SOLN 2.5 ML BTL OP SCH (21:23)
[2019-09-22] MEDS: DOCUSATE SODIUM/SENNA 50/8.6MG TAB PO SCH (21:23)
[2019-09-22] MEDS: ROSUVASTATIN CALCIUM 5 MG TAB PO SCH (21:23)
[2019-09-22] MEDS: CALCIUM 600MG + VIT D 400 IU TAB PO SCH (21:23)
[2019-09-23] MEDS: LEVOTHYROXINE SODIUM 50 MCG TABLET PO SCH (05:36)
--- NOTE | 2019-09-23 07:49 | Orthopedic Progress Note ---
Date of Service September 23, 2019 Assessment & Plan (1) Neurogenic claudication due to lumbar spinal stenosis: This time continue physical therapy monitor his RUI output. Advised that he be considered for possible rehab placement. If so would be okay to leave tomorrow. Present on Admission?: Yes Admission and Anticipated Discharge Date Admission Date: September 21, 2019 Subjective Back pain controlled leg symptoms improved. Physical Exam Physical Exam: Patient is good strength testing appears comfortable. Results & Data ([facility]) Vital Signs (Past 12 Hours) Vital Signs Temp Pulse Resp BP BP Pulse Ox 09/23/19 07:27 36.3 C L 61 16 109/67 93 09/22/19 22:08 36.5 C 63 16 98/57 L 91
[2019-09-23] MEDS: CEROVITE ADV FORMULA TAB PO SCH (08:58)
[2019-09-23] MEDS: CHOLECALCIFEROL 1,000 UNITS 25 MCG TAB PO SCH ×2 (08:58→21:16)
[2019-09-23] MEDS: FINASTERIDE 5 MG TAB PO SCH (08:58)
[2019-09-23] MEDS: INSULIN ASPART 100 UNITS/ML 3 ML PEN SC SCH ×4 (09:01→21:19)
[2019-09-23] MEDS: INSULIN GLARGINE SOLOSTAR 100 UNITS/ML 3 ML PEN SC SCH ×2 (09:19→21:20)
--- NOTE | 2019-09-23 15:12 | Pharmacy Report ---
Pharmacy Glycemic Short Note 2 - Date of Service September 23, 2019 - Glycemic Short BSG Results (Last 24 hours): 09/22/19 09/22/19 09/23/19 17:31 20:09 08:11 POC Glucose 185 H 241 H 180 H 09/23/19 12:14 POC Glucose 158 H OUTPATIENT ANTIDIABETIC REGIMEN: * Novolog 70/30 Mix with doses running from 30-45 units BIDM * A1c = 8.9 % 04/12/19 The patient is currently receiving: * Basal insulin: Lantus 15 units every 12 hours * Correctional Insulin: Novolog Correction per scale ACHS Goal Range: Low 110 mg/dL - High 150 mg/dL Correction Factor: 20 mg/dL/unit * Prandial insulin: Per carb ratio of 1 unit per 7 grams CHO consumed Risk Factors for Insulin Resistance: * Recent Surgery: POD 2 s/p lumbar surgery * Diet: T2DM - Assessment & Plan ASSESSMENT: 09/22 * Patient is currently receiving an average of 56 units of insulin per day * 30 units of basal insulin * 26 units of prandial/correctional insulin * BSGs ranging 158-241 over the past 24hrs * Risk factors for insulin resistance are decreasing over the past 24hrs * Now POD # 2 s/p surgery * Anticipating insulin regimen will need increased for the next 24hrs d/t : * AM Fasting BSG = 180 therefore Basal insulin needs increased * Post-prandial BSGs are elevated/BSGs rise throughout the day; however, No volog parameters are already fairly aggressive so will wait to see what increased basal dose does for BSGs 3/4 * Mr Benjamin is an 89 y/o M well known to the glycemic service. Previously, he had tolerated around 30 units of Lantus per day. Will resume this as Lantus 15 units SQ BID as this provided adequate fasting blood sugars. * For Novolog, parameters were originally chosen based upon TDD of 60 units. Patient's BSG trended upwards at lunch so will tighten to weight-based stress of 3. PLAN FOR INPATIENT GLYCEMIC CONTROL: * Basal insulin - increase * Lantus 20 units SQ BID * Bolus insulin - tighten goal range until BSGs have improved * NovoLog per scale ACHS or Q6hrs while NPO * Goal Range: Low 110 mg/dL - High 140 mg/dL * Correction Factor: 20 mg/dL/unit * Nutritional / Prandial insulin per carb ratio of 1 unit per 7 grams CHO consumed
[2019-09-23] MEDS: AMIODARONE 200 MG TAB PO SCH (16:46)
[2019-09-23] MEDS: DOCUSATE SODIUM/SENNA 50/8.6MG TAB PO SCH (21:15)
[2019-09-23] MEDS: BIMATOPROST 0.01% OP SOLN 2.5 ML BTL OP SCH ×2 (21:16→21:19)
[2019-09-23] MEDS: ROSUVASTATIN CALCIUM 5 MG TAB PO SCH (21:16)
[2019-09-23] MEDS: CALCIUM 600MG + VIT D 400 IU TAB PO SCH (21:16)
[2019-09-24] MEDS: LEVOTHYROXINE SODIUM 50 MCG TABLET PO SCH (06:04)
[2019-09-24] MEDS: CEROVITE ADV FORMULA TAB PO SCH (08:38)
[2019-09-24] MEDS: FINASTERIDE 5 MG TAB PO SCH (08:39)
[2019-09-24] MEDS: CHOLECALCIFEROL 1,000 UNITS 25 MCG TAB PO SCH (08:39)
[2019-09-24] MEDS: INSULIN ASPART 100 UNITS/ML 3 ML PEN SC SCH ×2 (08:47→13:17)
[2019-09-24] MEDS: INSULIN GLARGINE SOLOSTAR 100 UNITS/ML 3 ML PEN SC SCH (08:50)
--- NOTE | 2019-09-24 12:37 | Pharmacy Report ---
Pharmacy Glycemic Short Note 2 - Date of Service September 24, 2019 - Glycemic Short BSG Results (Last 24 hours): 09/23/19 09/23/19 09/24/19 17:15 20:54 08:11 POC Glucose 119 H 141 H 125 H 09/24/19 11:58 POC Glucose 189 H OUTPATIENT ANTIDIABETIC REGIMEN: * Novolog 70/30 Mix with doses running from 30-45 units BIDM * A1c = 8.9 % 04/12/19 The patient is currently receiving: * Basal insulin: Lantus 20 units every 12 hours * Correctional Insulin: Novolog Correction per scale ACHS Goal Range: Low 110 mg/dL - High 150 mg/dL Correction Factor: 20 mg/dL/unit * Prandial insulin: Per carb ratio of 1 unit per 7 grams CHO consumed Risk Factors for Insulin Resistance: * Recent Surgery: POD 3 s/p lumbar surgery * Diet: T2DM - Assessment & Plan ASSESSMENT: 09/23 * Patient is currently receiving an average of 66 units of insulin per day * 40 units of basal insulin * 26 units of prandial/correctional insulin * BSGs ranging 119-189 over the past 24hrs * Risk factors for insulin resistance are CONSTANT over the past 24hrs * Anticipate no changes to insulin regimen in the next 24 hours 09/22 * Patient is currently receiving an average of 56 units of insulin per day * 30 units of basal insulin * 26 units of prandial/correctional insulin * BSGs ranging 158-241 over the past 24hrs * Risk factors for insulin resistance are decreasing over the past 24hrs * Now POD # 2 s/p surgery * Anticipating insulin regimen will need increased for the next 24hrs d/t : * AM Fasting BSG = 180 therefore Basal insulin needs increased * Post-prandial BSGs are elevated/BSGs rise throughout the day; however, Novolog parameters are already fairly aggressive so will wait to see what increased basal dose does for BSGs / * Mr Benjamin is an 89 y/o M well known to the glycemic service. Previously, he had tolerated around 30 units of Lantus per day. Will resume this as Lantus 15 units SQ BID as this provided adequate fasting blood sugars. * For Novolog, parameters were originally chosen based upon TDD of 60 units. Patient's BSG trended upwards at lunch so will tighten to weight-based stress of 3. PLAN FOR INPATIENT GLYCEMIC CONTROL: * Basal insulin - no change * Lantus 20 units SQ BID * Bolus insulin - no change * NovoLog per scale ACHS or Q6hrs while NPO * Goal Range: Low 110 mg/dL - High 140 mg/dL * Correction Factor: 20 mg/dL/unit * Nutritional / Prandial insulin per carb ratio of 1 unit per 7 grams CHO consumed Discharge Recommendations: * Current A1c is out of date so I have ordered one for 09/24 * Recommend to discharge on current outpatient regimen unless updated A1c requires significant changes
--- NOTE | 2019-09-24 13:25 | Discharge Summary ---
Date of Service September 24, 2019 Admission HPI Per Admitting Provider This is a 89-year-old male who presents with chronic persistent back and bilateral leg pain. Failing extensive course of nonoperative care is here for surgical intervention. Principal Diagnosis Lumbar spinal stenosis with neurogenic claudication Discharge Data Allergies Allergy/AdvReac Type Severity Reaction Status Date / Time atorvastatin AdvReac Intermediate leg pain Verified 09/21/19 09:28 Consultations 09/21/19 14:46 Consult Case Management - Discharge Planning Routine Consult Hospitalist Routine Procedures Performed Operation Date: 09/21/19 10:55 Actual Procedures p L4-L5 Decompression Fusion, use of Infuse, Spinal Cord Monitoring(Not Applicable) - Kamron Sol DO Ordered Studies 09/21/19 07:00 FL fluoroscopy <1hr Routine FL lumbar spine 2-3V Routine Hospital Course (1) Neurogenic claudication due to lumbar spinal stenosis: Patient underwent lumbar decompression fusion tolerated this well was taken to orthopedic for postoperative. Postop day 1 he was in a chair was tolerating therapy progressed to postop day #2. Strength is intact. Pain was controlled. RUI drain decreasing appropriately. Subsequently discharged to rehab. Discharge orders instructions from the chart for further review. Total Time Total Time Spent Total Time Spent (In Minutes): 20 minutes Discharge Plan Discharge Items Patient Disposition: Transfer Inpatient Rehab Fac Reason For Visit: LUMBAR SPINAL STEOSIS W NEUROGENIC CLAUDICATION Discharge Diagnosis: Lumbar spinal stenosis with neurogenic claudication Activity: As commented below Non-emergency contact: Primary Care Provider Call non-emergency contact if: you have any medication questions Follow-up/Referrals: Bryanna Orr MD [Primary Care Provider] - Diet: Regular Addtl Attending Provider Instructions: ACTIVITY RECOMMENDATIONS: SELF CARE INSTRUCTIONS AFTER THORACIC/LUMBAR FUSIONS 1. You may walk to your tolerance. It is good exercise for your legs and back. Expect some back and intermittent leg aches and pains. 2. You may perform "counter-top" level activities (make a sandwich, judy with a project, etc.). 3. No bending or lifting of more than 10 pounds or back twisting of any nature (roll like a log when turning in bed). 4. You may ride in a car for 20-30 minutes at a time. No driving until after your first visit with your doctor. 5. Frequent changes of position and restricting sitting to 30 minutes at a time will help limit the amount of back spasms and stiffness you may experience. 6. You may discontinue the use of ambulatory aids (cane, crutches, etc.) once your strength and confidence allow. 7. You may inpatient care manager rn the shower and let water strike your incision when you arrive home at least once daily. Do not take a tub bath, sit in a hot tub or go into a swimming pool until after your first recheck in the office. SPECIAL CARE INSTRUCTIONS: VERY IMPORTANT TO READ AND REVIEW A. Your surgical incision has been closed with a cosmetic suture under the skin that will dissolve in about 6 weeks. In 14 days, you can use a pair of clean scissors and cut the suture that is left outside of the skin at the ends of your incision. 1. The small skin tapes can be removed 7 days after surgery if they have not fallen off by that point. 2. You may keep the wound open to air as much as possible to promote healing after post-op day number 5 unless told otherwise by your doctor. 3. If you think the wound looks like it is becoming infected (redness or worsening drainage) and/or you are experiencing fever, chill or worsening back pain and muscle spasms, contact the office so that we may evaluate you as soon as possible. B. Complications are uncommon, but please contact us if you have any signs or symptoms of: 1. wound infection (fever higher than 102.5 degrees F, redness, separation of wound, drainage, or increasing pain from the incision) 2. blood clots in legs (pain, swelling, redness and warmth in legs) 3. urinary tract infection (fever higher than 102.5 degrees F, burning upon urination or increased frequency of urination) 4. nerve problems (inability to walk on your toes or heels, numbness, loss of bowel or bladder control) 5. any other symptoms that concern you C. Please call the office at if you have any concerns or questions about your operation or recovery. D. No smoking! Smoking drastically decreases the chance of a solid fusion. E. Do not take any anti-inflammatory medications (Indocin, Advil, Motrin, Aspirin, Naprosyn, etc.) as these may inhibit the chance of a solid fusion. Tylenol is okay to take for pain. MANAGING PAIN AFTER SPINAL SURGERY 1. Narcotic medication is intended for short-term use and will be provided for surgical pain. Surgical pain usually lasts for a period of 4-6 weeks. Narcotic medication includes Percocet, Vicodin, Darvocet, Tylenol #3 or Lortab. 2. Longer-term pain is more appropriately treated with non-narcotic medication such as Tylenol ES. 3. Muscle spasm is not appropriately treated with narcotics. Muscle relaxers such as Soma, Flexeril or Skelaxin can be used along with Tylenol ES. 4. Remember that we all live with some "aches and pains". This is not unusual or uncommon after an injury or as we get older. a. Back pain is expected and may include muscle spasms for 4 to 6 weeks after surgery. The pain should gradually improve. If the pain worsens for no apparent reason, please contact the office. b. Intermittent leg pain may also be experienced and should not be concerned about unless it worsens for no apparent reason. If so, please contact the office. 5. We will provide appropriate medication within the normal guidelines of their prescribed use. We will also be very cautious and aware of potential abuse and extended duration of patients' medication needs. a. Pain medications are for your comfort and to assist with sleep and rest so that the tissue can heal. They are not provided in order to return to normal activity and should not be used through the day. To do so or worsening pain at night can result from ongoing tissue damage and development of tolerance to the prescribed medicine. 6. Please allow 2-3 days to process refills. Prescriptions will not be mailed but must be picked up at the office. FOLLOW UP VISIT: Keep your scheduled follow-up appointment. Any questions, please call the office at . Pending Studies at Discharge: No Stand-Alone Forms: My [facility] Skilled Items Patient informed of condition?: Yes DNR: No Discharge Level of Care: Acute rehab Communicable Disease: No Discharge Prognosis: Improving Lines: None Urinary Catheter: No Medications and DC Order Prescriptions: New tramadol 50 mg tablet 50 mg PO Q6H PRN (Reason: pain, moderate) Qty: 30 RF: 0 Continued (DME) OneTouch Ultra Blue Test Strip strip See Dose Instructions .ROUTE .MEDSUPPLY Qty: 200 RF: 3 levothyroxine [Synthroid] 50 mcg tablet 50 mcg PO QAM Qty: 90 RF: 3 guaifenesin [Mucinex] 600 mg tablet extended release 12hr 1,200 mg PO Q12 PRN (Reason: Cough) RF: 0 PreserVision AREDS-2 [id number] gf-eriw-yk-mg capsule 1 tab PO QAM RF: 0 (DME) lancets [OneTouch Delica Lancets] 33 gauge misc See Dose Instructions .ROUTE .MEDSUPPLY Qty: 100 RF: 0 (DME) insulin syringe-needle U-100 [BD Insulin Syringe Ultra-Fine] 1 mL 31 gauge x 5/16 syringe See Dose Instructions .ROUTE .MEDSUPPLY Qty: 10 RF: 0 ipratropium-albuterol 0.5 mg-3 mg(2.5 mg base)/3 mL Solution For Nebulization 3 ml INHALATION Q4 PRN (Reason: Shortness Of Breath Or Wheezing) RF: 0 amiodarone [Pacerone] 200 mg tablet 200 mg PO 1700 RF: 0 bimatoprost 0.03 % Drops 1 drp OPB PM RF: 0 albuterol sulfate [Ventolin HFA] 90 mcg/actuation Hfa Aerosol Inhaler 2 puff INHALATION Q4 PRN (Reason: Shortness Of Breath Or Wheezing) RF: 0 finasteride [Proscar] 5 mg tablet 5 mg PO QAM RF: 0 cholecalciferol (vitamin D3) [Vitamin D3] 1,000 unit Tablet 1,000 unit PO BID RF: 0 Calcium 600 + D(3) 600 mg calcium- 200 unit Capsule 1 cap PO QPM RF: 0 insulin asp prt-insulin aspart [Novolog Mix 70-30 U-100 Insuln] 100 unit/mL (70-30) solution 30 - 45 sliding scale dose subcut BIDM RF: 0 rosuvastatin [Crestor] 5 mg tablet 5 mg PO QPM RF: 0 Xarelto 20 mg tablet 20 mg PO QPM RF: 0 Discharge Orders: Discharge Order (Routine); Ordered 09/24/19 Ordered By: Kamron Sol Admission Data Admit Date/Time: 09/21/19 13:35 Attending Provider: Kamron Sol Admit Provider: Kamron Sol Primary Care Provider: Bryanna Orr Other Providers: Jean Omer ; [place] ; [facility] Other Interventions: Discharge Summary Assessment (RN) Last Done: 09/24/19 13:21
== END 2019-09-24 13:58 | DRG 460 ==
LOC: ASU 08:50 → 3E 13:35

== ENCOUNTER 2020-12-27 21:31 | Inpatient (IN) ==
[2020-12-27 23:28] LABS: Basophils # (auto) 0.01 K/uL (0-0.2); Basophils % (auto) 0.1 %; Hematocrit (blood only) 46.2 % (42-52); Immature Granulocytes # (auto) 0.11 K/uL (0.00-0.02); Immature Granulocytes % (auto) 0.6 %; Lymphocytes % (auto) 2.3 %; Mean Corpuscular Hemoglobin 29.4 pg (25-34); Mean Corpuscular Hgb Conc 34.6 g/dL (32-36); Mean Corpuscular Volume 84.9 fL (80-100); Mean Platelet Volume 12.2 fL (7.4-10.4); Monocytes # (auto) 1.26 K/uL (0.11-0.59); Monocytes % (auto) 7.2 %; Neutrophils # (auto) 15.74 K/uL (1.4-6.5); Neutrophils % (auto) 89.8 %; Platelet Count 249 K/uL (130-400); RDW Standard Deviation 43.2 fL (36.4-46.3); Red Blood Count 5.44 M/uL (4.7-6.1); White Blood Count 17.52 K/uL (4.8-10.8)
[2020-12-27] MEDS: SODIUM CHLORIDE 0.9% 1000ML 1,000 ML IV SCH (23:28)
[2020-12-27 23:54] LABS: Alanine Aminotransferase 29 U/L (12-78); Albumin Globulin Ratio 0.8 (0.9-2); Albumin Level 3.1 gm/dl (3.4-5.0); Alkaline Phosphatase 163 U/L (45-117); Aspartate Aminotransferase 16 U/L (15-37); BUN Creatinine Ratio 18.7 (10-20); Bilirubin,Total 0.8 mg/dl (0.2-1); Blood Urea Nitrogen 23 mg/dl (7-18); Carbon Dioxide 24 mmol/L (21-32); Chloride 101 mmol/L (98-107); Creatinine Clr Calc Pharmacy 40.1 ml/min; Est GFR (African American) 58.8 ml/min; Est GFR (Non-African American) 50.7 ml/min; Globulin 3.7 gm/dl (2.5-4.0); Glucose 421 mg/dl (70-99); Lipase 45 U/L (73-393); Magnesium 2.1 mg/dl (1.8-2.4); Potassium 4.1 mmol/L (3.5-5.1); Sodium 134 mmol/L (136-145); Total Protein 6.8 gm/dl (6.4-8.2); Troponin I < 0.015 ng/ml (0-0.045)
--- NOTE | 2020-12-28 00:10 | Emergency Department Note ---
History of Present Illness General Chief complaint: Hyperglycemia Stated complaint: SUGAR IS HIGH, ON STEROID MEDICATION Time Seen by Provider: 12/27/20 23:17 Source: patient and family Mode of arrival: ambulatory Limitations: no limitations History of Present Illness Provider complaint: High blood sugar Onset (ago): day(s) 2 Maximum Pain Intensity: 5 This is an 89-year-old male who presents with his and additional family at bedside due to concern for elevated blood sugar readings at home. states both she and he began developing cold-like symptoms several days ago. She states they went to their PCP on Friday and both of them were started on azithromycin. She states due to his history of underlying COPD, he was also started on steroids. She states he typically uses nebulizer treatments at home 4 times a day, does not take steroids chronically. She states he has been slightly more irritable, fatigued, decreased appetite, and has had a coarse cough. He states his sputum has been clear, no hemoptysis. She states he has had subjective fevers and chills. She states he does see pulmonology but it has been quite sometime since he has had an appointment. He states he is a known diabetic, and after starting the steroids, his blood sugar readings at home began to become elevated. Due to concern for persistent readings including several which were over 500, they came to the emergency room. states patient has not good about drinking water, and patient admits to this also. Patient denies any focal chest pain, abdominal pain, vomiting, or diarrhea. Pt seen during a time of high acuity and national emergency pandemic while wearing PPE. Home Medications Medication Instructions Recorded Confirmed Type cholecalciferol (vitamin D3) 1,000 unit PO BID 07/16/18 12/28/20 History [Vitamin D3] ipratropium-albuterol 3 ml INHALATION Q4 PRN 07/16/18 12/28/20 History lancets 33 gauge #100 ea 02/08/19 12/25/20 History vit C 250 mg-vit E 90 mg-zinc 40 1 tab PO QAM 02/08/19 12/28/20 History mg-copper 1 [id number] capsule Calcium 600 + D(3) 1 cap PO QPM 09/01/19 12/28/20 History acetaminophen 325 mg capsule 650 mg PO Q4H PRN cap 10/13/19 12/28/20 History ostomy supplies #10 ea 11/12/19 12/25/20 Rx ostomy supplies #2 box 11/12/19 12/25/20 Rx rivaroxaban 20 mg tablet 20 mg PO QPM #90 tab 03/24/20 12/28/20 Rx insulin aspart U-100 100 unit/mL See Rx Instructions SQ TID #1 box 05/25/20 12/28/20 Rx (3 mL) subcutaneous pen MDD 17 units a day levothyroxine 50 mcg tablet 50 mcg PO QAM #90 tab 06/22/20 12/28/20 Rx albuterol sulfate 90 mcg/actuation 2 puff INHALATION Q4 PRN #18 g 09/15/20 12/28/20 Rx aerosol inhaler rosuvastatin 5 mg tablet 5 mg PO QPM #90 tab 11/21/20 12/28/20 Rx SocialBuyTouch Ultra Blue Test Strip #400 ea NS 12/06/20 12/25/20 Rx pen needle, diabetic 32 gauge x #100 ea 12/06/20 12/25/20 Rx 5/32" insulin syringe-needle U-100 1 mL #200 ea 12/21/20 12/25/20 Rx 31 gauge x 5/16" amoxicillin 875 mg-potassium 1 tab PO BID #20 tab 12/25/20 12/28/20 Rx clavulanate 125 mg tablet amiodarone 200 mg tablet 200 mg PO 1700 #90 tab 12/28/20 Rx donepezil [Aricept] 5 mg PO QAM 12/28/20 12/28/20 History finasteride [Proscar] 5 mg PO QAM 12/28/20 12/28/20 History insulin asp prt-insulin aspart 36 unit SUBCUT BID 12/28/20 12/28/20 History [Novolog Mix 70-30 U-100 Insuln] Allergies Allergy/AdvReac Type Severity Reaction Status Date / Time atorvastatin AdvReac Intermediate leg pain Verified 12/28/20 02:02 Past Med/Surg History Medical History (Updated 12/28/20 @ 01:31 by Kinjal Mueller DO) Carcinoma of lower lobe, 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) Cerumen impaction Chronic a-fib Controlled and stable Chronic back pain 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 - no issues - does not follow with specialist- stable Colon cancer S/p colectomy- has iliostomy- no chemo or XRT Glaucoma Hypertrophic cardiomyopathy mean gradient of 10mmHg on echo from 03/06 Lumbar stenosis Lung cancer s/p lobectomy - LLL- no chemo or XRT Osteoarthritis Pancreatitis ~20 years ago Renal cyst Ulcerative colitis hx Vitamin D deficiency Surgical History History of adenoidectomy History of appendectomy History of bronchoscopy History of cataract surgery bilateral History of colectomy History of colonoscopy History of colostomy History of ERCP History of herniorrhaphy around stoma History of lobectomy of lung (05/06/12) left lower lobe History of lung surgery History of partial pancreatectomy (Dr Escobar) ~20 years ago History of tonsillectomy S/P epidural steroid injection Family History Mother Diabetes Heart disease Myocardial infarction Hypertension Irritable bowel syndrome (IBS) Father Irritable bowel syndrome (IBS) Sister Heart disease Brother Heart disease Other Crohn's disease Kidney disease No family history of adverse response to anesthesia Denies family history of Ovarian cancer Prostate cancer Breast cancer Colorectal cancer Social History Smoking Status: Former smoker Second Hand Exposure: Yes (hx); Hx Alcohol Use: Yes Alcohol type: hard liquor Alcohol Intake Frequency Comment: 1 every couple days Hx Substance Use: No Preferred Language: Sami Communication Ability: Effective Visual Impairment: No Limitations Piler Required: No Beliefs That Will Affect Care: None marital status: Current Living Situation: Spouse Current Living Situation Comment: House current occupational status: retired Feels Safe at Home: No Is there a partner from a previous relationship who is making you feel unsafe now?: No Dental Care, Regularly: Yes Seatbelt Use: always Assistive Devices: None Review of Systems See HPI for pertinent positives & negatives. and A total of 10 systems reviewed and were otherwise negative Physical Exam Vital Signs Vital Signs - 24 hr 12/27/20 21:51 12/27/20 22:54 12/27/20 22:55 Temperature 36.9 C Temperature Source Temporal Artery Scan Pulse Rate 82 78 74 Pulse Rate [Bilateral Finger] Pulse Rate from SpO2 Sensor 77 75 Respiratory Rate 18 20 18 Respiratory Effort / Characteristics Non-Labored Spontaneous Respiratory Depth Normal Respiratory Pattern Regular Blood Pressure 113/62 127/74 Blood Pressure Mean 79 91 Blood Pressure Position Sitting Pulse Oximetry 93 92 92 Oxygen Delivery Method Room Air Sepsis Recent Fever Within 48 Hours No Sepsis New/Unexplained Change in Mental Status N/A Sepsis Action Taken by Nursing No Action Required 12/27/20 23:00 12/27/20 23:01 12/27/20 23:10 Temperature Temperature Source Pulse Rate 74 73 71 Pulse Rate [Bilateral Finger] Pulse Rate from SpO2 Sensor 74 73 71 Respiratory Rate 21 26 H 16 Respiratory Effort / Characteristics Respiratory Depth Respiratory Pattern Blood Pressure 113/61 Blood Pressure Mean 78 Blood Pressure Position Pulse Oximetry 93 92 93 Oxygen Delivery Method Sepsis Recent Fever Within 48 Hours Sepsis New/Unexplained Change in Mental Status Sepsis Action Taken by Nursing 12/27/20 23:15 12/27/20 23:20 12/27/20 23:30 Temperature Temperature Source Pulse Rate 70 70 72 Pulse Rate [Bilateral Finger] Pulse Rate from SpO2 Sensor 71 70 72 Respiratory Rate 14 16 22 Respiratory Effort / Characteristics Respiratory Depth Respiratory Pattern Blood Pressure 110/61 123/66 Blood Pressure Mean 77 85 Blood Pressure Position Pulse Oximetry 92 92 93 Oxygen Delivery Method Sepsis Recent Fever Within 48 Hours Sepsis New/Unexplained Change in Mental Status Sepsis Action Taken by Nursing 12/27/20 23:31 12/27/20 23:40 12/27/20 23:45 Temperature Temperature Source Pulse Rate 72 71 71 Pulse Rate [Bilateral Finger] Pulse Rate from SpO2 Sensor 72 72 71 Respiratory Rate 20 20 20 Respiratory Effort / Characteristics Respiratory Depth Respiratory Pattern Blood Pressure 119/67 Blood Pressure Mean 84 Blood Pressure Position Pulse Oximetry 95 93 93 Oxygen Delivery Method Sepsis Recent Fever Within 48 Hours Sepsis New/Unexplained Change in Mental Status Sepsis Action Taken by Nursing 12/27/20 23:50 12/28/20 00:00 12/28/20 00:01 Temperature Temperature Source Pulse Rate 71 74 74 Pulse Rate [Bilateral Finger] Pulse Rate from SpO2 Sensor 71 75 73 Respiratory Rate 18 20 18 Respiratory Effort / Characteristics Respiratory Depth Respiratory Pattern Blood Pressure 133/70 Blood Pressure Mean 91 Blood Pressure Position Pulse Oximetry 93 91 93 Oxygen Delivery Method Sepsis Recent Fever Within 48 Hours Sepsis New/Unexplained Change in Mental Status Sepsis Action Taken by Nursing 12/28/20 00:10 12/28/20 00:15 12/28/20 00:20 Temperature Temperature Source Pulse Rate 69 71 69 Pulse Rate [Bilateral Finger] Pulse Rate from SpO2 Sensor 70 71 70 Respiratory Rate 10 L 14 17 Respiratory Effort / Characteristics Respiratory Depth Respiratory Pattern Blood Pressure 118/67 Blood Pressure Mean 84 Blood Pressure Position Pulse Oximetry 95 94 92 Oxygen Delivery Method Sepsis Recent Fever Within 48 Hours Sepsis New/Unexplained Change in Mental Status Sepsis Action Taken by Nursing 12/28/20 00:30 12/28/20 00:31 12/28/20 00:40 Temperature Temperature Source Pulse Rate 70 73 70 Pulse Rate [Bilateral Finger] Pulse Rate from SpO2 Sensor 70 72 70 Respiratory Rate 15 19 11 L Respiratory Effort / Characteristics Respiratory Depth Respiratory Pattern Blood Pressure 114/62 Blood Pressure Mean 79 Blood Pressure Position Pulse Oximetry 93 93 95 Oxygen Delivery Method Sepsis Recent Fever Within 48 Hours Sepsis New/Unexplained Change in Mental Status Sepsis Action Taken by Nursing 12/28/20 00:45 12/28/20 00:46 12/28/20 00:50 Temperature Temperature Source Pulse Rate 70 70 69 Pulse Rate [Bilateral Finger] Pulse Rate from SpO2 Sensor 71 70 69 Respiratory Rate 17 15 13 Respiratory Effort / Characteristics Respiratory Depth Respiratory Pattern Blood Pressure 124/65 Blood Pressure Mean 84 Blood Pressure Position Pulse Oximetry 94 94 93 Oxygen Delivery Method Sepsis Recent Fever Within 48 Hours Sepsis New/Unexplained Change in Mental Status Sepsis Action Taken by Nursing 12/28/20 01:00 12/28/20 01:01 12/28/20 01:10 Temperature Temperature Source Pulse Rate 71 72 71 Pulse Rate [Bilateral Finger] Pulse Rate from SpO2 Sensor 71 72 72 Respiratory Rate 20 21 18 Respiratory Effort / Characteristics Respiratory Depth Respiratory Pattern Blood Pressure 133/71 Blood Pressure Mean 91 Blood Pressure Position Pulse Oximetry 94 94 94 Oxygen Delivery Method Sepsis Recent Fever Within 48 Hours Sepsis New/Unexplained Change in Mental Status Sepsis Action Taken by Nursing 12/28/20 01:16 12/28/20 01:20 12/28/20 01:44 Temperature Temperature Source Pulse Rate 76 70 Pulse Rate [Bilateral Finger] 85 Pulse Rate from SpO2 Sensor 76 70 Respiratory Rate 17 20 18 Respiratory Effort / Characteristics Non-Labored Spontaneous Respiratory Depth Respiratory Pattern Blood Pressure 140/81 Blood Pressure Mean 100 Blood Pressure Position Pulse Oximetry 94 93 95 Oxygen Delivery Method Room Air Sepsis Recent Fever Within 48 Hours Sepsis New/Unexplained Change in Mental Status Sepsis Action Taken by Nursing GENERAL: alert, unwell appearing, well nourished, no distress, non-toxic EYE EXAM: normal conjunctiva, PERRL and EOM's grossly intact OROPHARYNX: no exudate, no erythema, lips, buccal mucosa, and tongue normal and mucous membranes are moist NECK: supple, no nuchal rigidity, no adenopathy, non-tender LUNGS: Clear to auscultation. Normal chest wall mechanics, no w/r/r, coarse cough noted during exam HEART: no murmurs, S1 normal and S2 normal ABDOMEN: abdomen soft, non-tender, normo-active bowel sounds, no masses, no rebound or guarding. BACK: Back is symmetrical on inspection and there is no deformity, no midline tenderness, no CVA tenderness. SKIN: no rashes and no bruising UPPER EXTREMITIES: upper extremities are grossly normal. FROM, nml pulses b/l. LOWER EXTREMITIES: No pitting edema. FROM, nml pulses b/l. NEURO EXAM: Normal sensorium, cranial nerves II-XII grossly intact, normal speech, no gross weakness of arms, no gross weakness of legs. Gross sensation intact. Course Course 0026: Updated patient and family at bedside on all results. We did discuss benefits of additional inpatient evaluation at this time given likely evolving pneumonia, significant elevation of glucose likely due to combination of oral steroids and infection. Patient hemodynamically stable while here. They verbalized understanding and were in agreement with plan. 0140: Case discussed with Dr. Carson. Administered Medications Albuterol (Albut/Ipratrop 3mg/0.5mg Neb 3 Ml Vial) 3 ml INH Q4R [facility] Stop: 01/27/21 04:52 Last Admin: 12/29/20 03:58 Dose: 3 ml Documented by: [id number] Admin: 12/28/20 23:56 Dose: 3 ml Documented by: [id number] Admin: 12/28/20 19:27 Dose: 3 ml Documented by: [id number] Admin: 12/28/20 15:12 Dose: 3 ml Documented by: [id number] Admin: 12/28/20 11:07 Dose: 3 ml Documented by: [id number] Admin: 12/28/20 07:12 Dose: Not Given Documented by: [id number] Admin: 12/28/20 05:16 Dose: 3 ml Documented by: [id number] Amiodarone HCl (Amiodarone 200 Mg Tab) 200 mg PO 1700 [facility] Stop: 01/27/21 16:59 Last Admin: 12/28/20 16:31 Dose: 200 mg Documented by: [id number] Donepezil HCl (Donepezil Hcl 5 Mg Tab) 5 mg PO QAM [facility] Stop: 01/27/21 08:59 Last Admin: 12/28/20 09:35 Dose: 5 mg Documented by: [id number] Finasteride (Finasteride 5 Mg Tab) 5 mg PO QAM [facility] Stop: 01/27/21 08:59 Last Admin: 12/28/20 09:35 Dose: 5 mg Documented by: [id number] Guaifenesin (Guaifenesin 600 Mg Tabcr) 1,200 mg PO Q12 [facility] Stop: 01/27/21 08:59 Last Admin: 12/28/20 20:43 Dose: 1,200 mg Documented by: [id number] Admin: 12/28/20 09:36 Dose: 1,200 mg Documented by: [id number] Piperacillin Sod/Tazobactam (Sod 3.375 gm/ Dextrose) 115 mls @ 28.75 mls/hr IV Q8H [facility]; Protocol Stop: 01/04/21 09:59 Last Admin: 12/29/20 01:10 Dose: 28.8 mls/hr Documented by: [id number] Infusion: 12/28/20 21:38 Dose: 0 mls/hr Documented by: [id number] Admin: 12/28/20 17:41 Dose: 28.8 mls/hr Documented by: [id number] Infusion: 12/28/20 14:11 Dose: 0 mls/hr Documented by: [id number] Admin: 12/28/20 09:34 Dose: 28.8 mls/hr Documented by: [id number] Insulin Aspart (Insulin Aspart 100 Units/Ml 3 Ml Pen) 0 units SC ACHS [facility] Stop: 01/27/21 07:29 Last Admin: 12/28/20 20:43 Dose: 2 units Documented by: [id number] Cosigned by: [id number] Admin: 12/28/20 18:06 Dose: Not Given Documented by: [id number] Admin: 12/28/20 13:36 Dose: 6 units Documented by: [id number] Cosigned by: [id number] Admin: 12/28/20 07:57 Dose: 16 units Documented by: [id number] Cosigned by: [id number] Levothyroxine Sodium (Levothyroxine Sodium 50 Mcg Tablet) 50 mcg PO DAILYBB [facility] Stop: 01/27/21 06:29 Last Admin: 12/28/20 07:55 Dose: 50 mcg Documented by: [id number] Rivaroxaban (Rivaroxaban 20 Mg Tab) 20 mg PO QPM [facility] Stop: 01/27/21 20:59 Last Admin: 12/28/20 20:43 Dose: 20 mg Documented by: [id number] Rosuvastatin Calcium (Rosuvastatin Calcium 5 Mg Tab) 5 mg PO QPM [facility] Stop: 01/27/21 20:59 Last Admin: 12/28/20 20:43 Dose: 5 mg Documented by: [id number] Discontinued Medications Albuterol (Albut/Ipratrop 3mg/0.5mg Neb 3 Ml Vial) 3 ml NEB NOW STA Stop: 12/28/20 01:32 Last Admin: 12/28/20 01:44 Dose: 3 ml Documented by: [id number] Sodium Chloride (Nss 1000ml) 1,000 mls @ 250 mls/hr IV .Q4H [facility] Stop: 01/26/21 23:29 Last Admin: 12/28/20 05:42 Dose: Not Given Documented by: [id number] Infusion: 12/28/20 03:43 Dose: 0 mls/hr Documented by: [id number] Admin: 12/27/20 23:28 Dose: 250 mls/hr Documented by: [id number] Cefepime HCl (Maxipime) 2,000 mg in 20 mls @ 5 mls/min IV NOW STA Stop: 12/28/20 01:16 Last Admin: 12/28/20 01:18 Dose: 5 mls/min Documented by: [id number] Sodium Chloride (Nss 1000ml) 1,000 mls @ 100 mls/hr IV .Q10H [facility] Stop: 12/29/20 01:14 Last Infusion: 12/28/20 17:42 Dose: 0 mls/hr Documented by: [id number] Admin: 12/28/20 16:30 Dose: 100 mls/hr Documented by: [id number] Infusion: 12/28/20 14:10 Dose: 0 mls/hr Documented by: [id number] Admin: 12/28/20 05:22 Dose: 100 mls/hr Documented by: [id number] Piperacillin Sod/Tazobactam (Sod 3.375 gm/ Dextrose) 115 mls @ 230 mls/hr IV NOW STA; Protocol Stop: 12/28/20 05:43 Last Infusion: 12/28/20 05:55 Dose: 0 mls/hr Documented by: [id number] Admin: 12/28/20 05:22 Dose: 230 mls/hr Documented by: [id number] Insulin Aspart (Insulin Aspart 100 Units/Ml 3 Ml Pen) 0 units SC TODAY@0000,0400 [facility] Stop: 12/29/20 04:01 Last Admin: 12/29/20 03:40 Dose: 2 units Documented by: [id number] Cosigned by: [id number] Admin: 12/29/20 00:12 Dose: 1 units Documented by: [id number] Cosigned by: [id number] Insulin Human NPH (Insulin Human Nph) 15 units SC NOW ONE Stop: 12/28/20 09:01 Last Admin: 12/28/20 09:32 Dose: 15 units Documented by: [id number] Cosigned by: [id number] Insulin Human Regular (Novolin-R Insulin Per Unit Charge) 8 units SC NOW STA Stop: 12/28/20 00:52 Last Admin: 12/28/20 01:14 Dose: 8 units Documented by: [id number] Cosigned by: [id number] Medical Decision Making Differential Diagnosis Differential diagnoses includes but is not limited to pneumonia, bronchitis, COPD/Asthma exacerbation, pneumothorax, pulmonary embolism, congestive heart failure, acute coronary syndrome Medical Records Attestation: I reviewed the patient's medical records. Home Medications Current Medication List: was personally reviewed by me Laboratory Data Attestation: I reviewed the patient's lab results. Result diagrams: 12/28/20 05:45 12/27/20 23:00 Lab Results 12/27/20 12/27/20 12/27/20 Range/Units 21:55 23:00 23:00 WBC 17.52 H (4.8-10.8) K/uL RBC 5.44 (4.7-6.1) M/uL Hgb 16.0 (14.0-18.0) g/dL Hct 46.2 (42-52) % MCV 84.9 (80-100) fL MCH 29.4 (25-34) pg MCHC 34.6 (32-36) g/dL RDW Std Deviation 43.2 (36.4-46.3) fL RDW Coeff of [place] 14.0 (11.5-14.5) % Plt Count 249 (130-400) K/uL MPV 12.2 H (7.4-10.4) fL Immature Gran % (Auto) 0.6 % Neut % (Auto) 89.8 % Lymph % (Auto) 2.3 % [place] % (Auto) 7.2 % Eos % (Auto) 0.0 % Baso % (Auto) 0.1 % Neut # (Auto) 15.74 H (1.4-6.5) K/uL Lymph # (Auto) 0.40 L (1.2-3.4) K/uL [place] # (Auto) 1.26 H (0.11-0.59) K/uL Eos # (Auto) 0.00 (0-0.5) K/uL Baso # (Auto) 0.01 (0-0.2) K/uL Immature Gran # (Auto) 0.11 H (0.00-0.02) K/uL Sodium 134 L (136-145) mmol/L Potassium 4.1 (3.5-5.1) mmol/L Chloride 101 (98-107) mmol/L Carbon Dioxide 24 (21-32) mmol/L Anion Gap 9.0 (3-11) BUN 23 H (7-18) mg/dl Creatinine 1.25 (0.6-1.4) mg/dl Est Cr Clr Drug Dosing 40.1 ml/min Est GFR ( Amer) 58.8 ml/min Est GFR (Non-Af Amer) 50.7 ml/min BUN/Creatinine Ratio 18.7 (10-20) Glucose 421 H* (70-99) mg/dl POC Glucose 407 H* (70-99) mg/dl Lactate (0.4-2.0) mmol/L Calcium 10.0 (8.5-10.1) mg/dl Magnesium 2.1 (1.8-2.4) mg/dl Total Bilirubin 0.8 (0.2-1) mg/dl AST 16 (15-37) U/L ALT 29 (12-78) U/L Alkaline Phosphatase 163 H (45-117) U/L Troponin I < 0.015 (0-0.045) ng/ml Total Protein 6.8 (6.4-8.2) gm/dl Albumin 3.1 L (3.4-5.0) gm/dl Globulin 3.7 (2.5-4.0) gm/dl Albumin/Globulin Ratio 0.8 L (0.9-2) Lipase 45 L (73-393) U/L Beta-Hydroxybutyric Acd 1.61 (0.2-2.81) mg/dl COVID-19 Eval Order SARS-CoV-2 (PCR) (Negative) 12/27/20 12/27/20 12/28/20 Range/Units 23:32 23:32 00:19 WBC (4.8-10.8) K/uL RBC (4.7-6.1) M/uL Hgb (14.0-18.0) g/dL Hct (42-52) % MCV (80-100) fL MCH (25-34) pg MCHC (32-36) g/dL RDW Std Deviation (36.4-46.3) fL RDW Coeff of [place] (11.5-14.5) % Plt Count (130-400) K/uL MPV (7.4-10.4) fL Immature Gran % (Auto) % Neut % (Auto) % Lymph % (Auto) % [place] % (Auto) % Eos % (Auto) % Baso % (Auto) % Neut # (Auto) (1.4-6.5) K/uL Lymph # (Auto) (1.2-3.4) K/uL [place] # (Auto) (0.11-0.59) K/uL Eos # (Auto) (0-0.5) K/uL Baso # (Auto) (0-0.2) K/uL Immature Gran # (Auto) (0.00-0.02) K/uL Sodium (136-145) mmol/L Potassium (3.5-5.1) mmol/L Chloride (98-107) mmol/L Carbon Dioxide (21-32) mmol/L Anion Gap (3-11) BUN (7-18) mg/dl Creatinine (0.6-1.4) mg/dl Est Cr Clr Drug Dosing ml/min Est GFR ( Amer) ml/min Est GFR (Non-Af Amer) ml/min BUN/Creatinine Ratio (10-20) Glucose (70-99) mg/dl POC Glucose (70-99) mg/dl Lactate 2.7 H* (0.4-2.0) mmol/L Calcium (8.5-10.1) mg/dl Magnesium (1.8-2.4) mg/dl Total Bilirubin (0.2-1) mg/dl AST (15-37) U/L ALT (12-78) U/L Alkaline Phosphatase (45-117) U/L Troponin I (0-0.045) ng/ml Total Protein (6.4-8.2) gm/dl Albumin (3.4-5.0) gm/dl Globulin (2.5-4.0) gm/dl Albumin/Globulin Ratio (0.9-2) Lipase (73-393) U/L Beta-Hydroxybutyric Acd (0.2-2.81) mg/dl COVID-19 Eval Order Covid19 at [facility] SARS-CoV-2 (PCR) NEGATIVE (Negative) 12/28/20 12/28/20 12/28/20 Range/Units 01:33 02:03 03:05 WBC (4.8-10.8) K/uL RBC (4.7-6.1) M/uL Hgb (14.0-18.0) g/dL Hct (42-52) % MCV (80-100) fL MCH (25-34) pg MCHC (32-36) g/dL RDW Std Deviation (36.4-46.3) fL RDW Coeff of [place] (11.5-14.5) % Plt Count (130-400) K/uL MPV (7.4-10.4) fL Immature Gran % (Auto) % Neut % (Auto) % Lymph % (Auto) % [place] % (Auto) % Eos % (Auto) % Baso % (Auto) % Neut # (Auto) (1.4-6.5) K/uL Lymph # (Auto) (1.2-3.4) K/uL [place] # (Auto) (0.11-0.59) K/uL Eos # (Auto) (0-0.5) K/uL Baso # (Auto) (0-0.2) K/uL Immature Gran # (Auto) (0.00-0.02) K/uL Sodium (136-145) mmol/L Potassium (3.5-5.1) mmol/L Chloride (98-107) mmol/L Carbon Dioxide (21-32) mmol/L Anion Gap (3-11) BUN (7-18) mg/dl Creatinine (0.6-1.4) mg/dl Est Cr Clr Drug Dosing ml/min Est GFR ( Amer) ml/min Est GFR (Non-Af Amer) ml/min BUN/Creatinine Ratio (10-20) Glucose (70-99) mg/dl POC Glucose 388 H* 376 H* (70-99) mg/dl Lactate 2.3 H* (0.4-2.0) mmol/L Calcium (8.5-10.1) mg/dl Magnesium (1.8-2.4) mg/dl Total Bilirubin (0.2-1) mg/dl AST (15-37) U/L ALT (12-78) U/L Alkaline Phosphatase (45-117) U/L Troponin I (0-0.045) ng/ml Total Protein (6.4-8.2) gm/dl Albumin (3.4-5.0) gm/dl Globulin (2.5-4.0) gm/dl Albumin/Globulin Ratio (0.9-2) Lipase (73-393) U/L Beta-Hydroxybutyric Acd (0.2-2.81) mg/dl COVID-19 Eval Order SARS-CoV-2 (PCR) (Negative) Imaging Data My Impression: X-ray: I interpreted the following studies. Chest: A single view study of the chest was reviewed and was negative for cardiomegaly, effusion, pulmonary edema, or wide mediastinum. Appearance of evolving right lower lobe pneumonia. ECG Data Attestation: I personally reviewed and interpreted this ECG as follows: Indication: + SOB/dyspnea Rate (beats per minute): 74 Rhythm: + normal sinus ECG Intervals/blocks: + Normal QRS and + Prolonged QT ECG [place]: + Normal ECG ST segments: + ST depression (I, aVL, V5/6) and + Nonspecific ST abnormalities Comparison ECG Date: from (04/11/2019) Change: no significant change MDM Narrative CURB 65 - 3 points This is an 89-year-old male who presents with his due to concern for fatigue, worsening cough, and elevated blood sugar readings since starting steroids on Friday after being diagnosed with bronchitis. Patient was also started on azithromycin. Patient does have an underlying history of COPD although denies recurrent bronchitis or pneumonia. Patient does not use steroids chronically. Patient did have a coarse cough during exam although no increased work of breathing or tachypnea. Patient's chest x-ray suggestive of evolving right lower lobe pneumonia. Patient was noted to have a leukocytosis, likely this is a combination of infection and ADR of steroids. Patient did have significantly elevated blood glucose here although no evidence of DKA. Patient was not hypoxic, and was given a DuoNeb treatment in addition. Due to elevated risk associated with his pneumonia as well as current complication from the use of steroids, I discussed with them additional admission for inpatient management. They verbalized understanding of all results were in agreement with plan. At this time no evidence for bacteremia/sepsis. I do not suspect PE, CHF, pleural effusion, peritonitis/myocarditis, or tamponade. An order was placed for continuous cardiac monitoring. The monitor shows a rate of 80__ with _normal sinus_ rhythm. Impression & Plan Hyperglycemia, COPD (chronic obstructive pulmonary disease), Pneumonia, Acute dehydration, Current use of steroid medication Discharge Plan Visit Data Chief Complaint: Hyperglycemia Stated Complaint: SUGAR IS HIGH, ON STEROID MEDICATION ED Provider: Kinjal Mueller Discharge Problem: Hyperglycemia, COPD (chronic obstructive pulmonary disease), Pneumonia, Acute dehydration, Current use of steroid medication Patient Disposition: Admitted As Inpatient Discharge Instructions Interventions: ED Discharge Assessment Last Done: 12/28/20 03:55 Discharge Problem: COPD (chronic obstructive pulmonary disease) Qualifiers: COPD type: COPD with acute lower respiratory infection Qualified Code(s): J44.0 - Chronic obstructive pulmonary disease with (acute) lower respiratory infection Pneumonia Qualifiers: Pneumonia type: due to unspecified organism Laterality: right Lung location: lower lobe of lung Qualified Code(s): J18.9 - Pneumonia, unspecified organism
[2020-12-28 00:11] LABS: Beta-Hydroxybutyrate 1.61 mg/dl (0.2-2.81)
[2020-12-28] MEDS ORDERED: NovoLIN-R INSULIN PER UNIT CHARGE SC STA (00:51)
[2020-12-28] MEDS ORDERED: CEFEPIME 2,000 MG/20 ML VIAL IV STA (01:13)
[2020-12-28] MEDS ORDERED: ALBUT/IPRATROP 3MG/0.5MG NEB 3 ML VIAL NEB STA (01:31)
--- NOTE | 2020-12-28 03:27 | History & Physical Report ---
Date of Service December 28, 2020 Assessment & Plan (1) Hyperglycemia: Hyperglycemia: Most likely secondary to steroid use. Over 500 at home prior to admission. - Improving -Continue insulin -Check A1C Possible Pneumonia: Empiric antibiotics Hypothyroidism: TSH was 4.0 in 04/2020. No signs/symptoms of hypo-/hyperthyroidism. - Continue home Synthroid 50 mcg Chronic a-fib: Stable and well-controlled. - Continue amiodarone - Continue rivaroxaban COPD (chronic obstructive pulmonary disease): Patient with diffuse wheezing -Nebs Q 4 hours (2) Pneumonia: (3) Depression: (4) Diabetes type 2, uncontrolled: (5) Hypothyroidism: (6) HLD (hyperlipidemia): (7) HTN (hypertension): (8) Chronic a-fib: History of Present Illness Chief Complaint: hyperglycemia Primary Care Provider: Bryanna Orr MD 89yo male with hyperglycemia while on steroids, concern for evolving pneumonia. Allergies Allergy/AdvReac Type Severity Reaction Status Date / Time atorvastatin AdvReac Intermediate leg pain Verified 12/28/20 02:02 Home Medications Medication Instructions Recorded Confirmed Type cholecalciferol (vitamin D3) 1,000 unit PO BID 07/16/18 12/28/20 History [Vitamin D3] ipratropium-albuterol 3 ml INHALATION Q4 PRN 07/16/18 12/28/20 History lancets 33 gauge #100 ea 02/08/19 12/25/20 History vit C 250 mg-vit E 90 mg-zinc 40 1 tab PO QAM 02/08/19 12/28/20 History mg-copper 1 sn-ughbob-[id number] capsule Calcium 600 + D(3) 1 cap PO QPM 09/01/19 12/28/20 History acetaminophen 325 mg capsule 650 mg PO Q4H PRN cap 10/13/19 12/28/20 History ostomy supplies #10 ea 11/12/19 12/25/20 Rx ostomy supplies #2 box 11/12/19 12/25/20 Rx rivaroxaban 20 mg tablet 20 mg PO QPM #90 tab 03/24/20 12/28/20 Rx insulin aspart U-100 100 unit/mL See Rx Instructions SQ TID #1 box 05/25/20 12/28/20 Rx (3 mL) subcutaneous pen MDD 17 units a day levothyroxine 50 mcg tablet 50 mcg PO QAM #90 tab 06/22/20 12/28/20 Rx albuterol sulfate 90 mcg/actuation 2 puff INHALATION Q4 PRN #18 g 09/15/20 12/28/20 Rx aerosol inhaler rosuvastatin 5 mg tablet 5 mg PO QPM #90 tab 11/21/20 12/28/20 Rx OneTouch Ultra Blue Test Strip #400 ea NS 12/06/20 12/25/20 Rx pen needle, diabetic 32 gauge x #100 ea 12/06/20 12/25/20 Rx /32" insulin syringe-needle U-100 1 mL #200 ea 12/21/20 12/25/20 Rx 31 gauge x 5/16" amoxicillin 875 mg-potassium 1 tab PO BID #20 tab 12/25/20 12/28/20 Rx clavulanate 125 mg tablet amiodarone 200 mg tablet 200 mg PO 1700 #90 tab 12/28/20 Rx donepezil [Aricept] 5 mg PO QAM 12/28/20 12/28/20 History finasteride [Proscar] 5 mg PO QAM 12/28/20 12/28/20 History insulin asp prt-insulin aspart 36 unit SUBCUT BID 12/28/20 12/28/20 History [Novolog Mix 70-30 U-100 Insuln] Past Med/Surg History Medical History (Updated 12/29/20 @ 14:16 by Vance Natarajan MD) Carcinoma of lower lobe, 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) Cerumen impaction Chronic a-fib Controlled and stable Chronic back pain 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 - no issues - does not follow with specialist- stable Colon cancer S/p colectomy- has iliostomy- no chemo or XRT Glaucoma Hypertrophic cardiomyopathy mean gradient of 10mmHg on echo from 03/06 Lumbar stenosis Lung cancer s/p lobectomy - LLL- no chemo or XRT Osteoarthritis Pancreatitis ~20 years ago Renal cyst Ulcerative colitis hx Vitamin D deficiency Surgical History History of adenoidectomy History of appendectomy History of bronchoscopy History of cataract surgery bilateral History of colectomy History of colonoscopy History of colostomy History of ERCP History of herniorrhaphy around stoma History of lobectomy of lung (05/06/12) left lower lobe History of lung surgery History of partial pancreatectomy [facility] (Dr Escobar) ~20 years ago History of tonsillectomy S/P epidural steroid injection Family History Mother Diabetes Heart disease Myocardial infarction Hypertension Irritable bowel syndrome (IBS) Father Irritable bowel syndrome (IBS) Sister Heart disease Brother Heart disease Other Crohn's disease Kidney disease No family history of adverse response to anesthesia Denies family history of Ovarian cancer Prostate cancer Breast cancer Colorectal cancer Social History Smoking Status: Former smoker Second Hand Exposure: Yes (hx); Hx Alcohol Use: Yes Alcohol type: hard liquor Alcohol Intake Frequency Comment: 1 every couple days Hx Substance Use: No Preferred Language: Swedish Communication Ability: Effective Visual Impairment: No Limitations Parliamentary Archivist Required: No Beliefs That Will Affect Care: None marital status: Current Living Situation: Spouse Current Living Situation Comment: House current occupational status: retired Feels Safe at Home: No Is there a partner from a previous relationship who is making you feel unsafe now?: No Dental Care, Regularly: Yes Seatbelt Use: always Assistive Devices: Walker Review of Systems Review of Systems: All systems reviewed & are unremarkable except as noted in HPI & below Physical Exam Physical Exam: General: patient resting comfortably, NAD, non-toxic in appearance, AA&O x 4 Skin: warm, dry, intact, no rashes or lesions HEENT: NC/AT, PERRL, EOMI, anicteric sclera, conjunctiva without injection, external ear normal to inspection and nontender, nares patent, moist mucus membranes, dentition intact, no oropharyngeal lesions, neck supple, trachea midline, no LAD, no thyromegaly, no JVD Heart: +S1/S2, regular, no m/r/g Lungs: equal air entry bilaterally, scattered wheezes Abd: +BS, soft, NT/ND, no masses/organomegaly/ascites Ext: warm, 2+ pulses in UE/LE bilaterally, no clubbing/cyanosis or edema Neuro: nonfocal, patient AA&O x 4, speech intact, no facial droop, moving all extremities on command with equal strength 5/5 Results & Data Results & Data ([facility]) Vital Signs (Past 12 Hours) Vital Signs Temp Pulse Pulse Resp BP Pulse Ox 12/28/20 02:31 78 11 L 93 12/28/20 02:30 76 15 113/55 L 93 12/28/20 02:20 77 20 93 12/28/20 02:15 79 19 112/55 L 93 12/28/20 02:10 81 16 93 12/28/20 02:00 82 13 123/66 93 12/28/20 01:50 79 14 100 12/28/20 01:47 80 19 156/76 H 99 12/28/20 01:44 85 18 95 12/28/20 01:40 81 15 94 12/28/20 01:31 74 17 94 12/28/20 01:30 73 17 128/67 95 12/28/20 01:20 70 20 93 12/28/20 01:16 76 17 140/81 94 12/28/20 01:10 71 18 94 12/28/20 01:01 72 21 94 12/28/20 01:00 71 20 133/71 94 12/28/20 00:50 69 13 93 12/28/20 00:46 70 15 94 12/28/20 00:45 70 17 124/65 94 12/28/20 00:40 70 11 L 95 12/28/20 00:31 73 19 93 12/28/20 00:30 70 15 114/62 93 12/28/20 00:20 69 17 92 12/28/20 00:15 71 14 118/67 94 12/28/20 00:10 69 10 L 95 12/28/20 00:01 74 18 93 12/28/20 00:00 74 20 133/70 91 12/27/20 23:50 71 18 93 12/27/20 23:45 71 20 119/67 93 12/27/20 23:40 71 20 93 12/27/20 23:31 72 20 95 12/27/20 23:30 72 22 123/66 93 12/27/20 23:20 70 16 92 12/27/20 23:15 70 14 110/61 92 12/27/20 23:10 71 16 93 12/27/20 23:01 73 26 H 92 12/27/20 23:00 74 21 113/61 93 12/27/20 22:55 74 18 92 12/27/20 22:54 78 20 127/74 92 12/27/20 21:51 36.9 C 82 18 113/62 93 Code Status & VTE Plan VTE Prophylaxis Plan VTE Prophylaxis will be ordered: Yes PG Care Time/CCT Total # of Minutes Spent Total Time Spent with Patient: Total time spent is greater than 50% in coordination of care (as documented) at patient's floor/unit and/or counseling patient: Coding Level of Care Code 31200 Initial Inpt Care Lvl 3 Diagnoses Hyperglycemia R73.9 Pneumonia J18.9 Laterality: right Lung location: lower lobe of lung Pneumonia type: due to unspecified organism Depression F32.9 Diabetes type 2, uncontrolled E11.65 Hypothyroidism E03.9 Hypothyroidism type: unspecified HLD (hyperlipidemia) E78.5 HTN (hypertension) I10 Chronic a-fib I48.2 (1) Pneumonia Laterality: right Lung location: lower lobe of lung Pneumonia type: due to unspecified organism Qualified Code(s): J18.9 - Pneumonia, unspecified organism (2) Hypothyroidism Hypothyroidism type: unspecified Qualified Code(s): E03.9 - Hypothyroidism, unspecified
[2020-12-28] MEDS ORDERED: PIPERACILL/TAZOBAC CONSULT ACTIVE PRN (04:53)
[2020-12-28] MEDS ORDERED: GLUCOSE 10 TABS/TUBE PO PRN (04:53)
[2020-12-28] MEDS ORDERED: DOCUSATE SODIUM 100 MG CAP PO PRN (04:53)
[2020-12-28] MEDS ORDERED: DEXTROSE 50% 50 ML SYRINGE IV PRN (04:53)
[2020-12-28] MEDS ORDERED: ONDANSETRON INJ 2 MG/ML 2 ML VIAL IV PRN (04:53)
[2020-12-28] MEDS ORDERED: GLUCOSE 40% GEL 15 GM TUBE PO PRN (04:53)
[2020-12-28] MEDS ORDERED: GLUCAGON FOR INJ 1 MG VIAL SQ PRN (04:53)
[2020-12-28] MEDS ORDERED: ALBUTEROL 0.5% NEB SOLN 2.5 MG/0.5 ML VIAL NEB PRN (04:53)
[2020-12-28] MEDS ORDERED: ACETAMINOPHEN 325 MG TAB PO PRN (05:05)
[2020-12-28] MEDS ORDERED: PIPERACILLIN/TAZOBACTAM 3.375 GM in DEXTROSE 5% 100 ML IV STA (05:14)
[2020-12-28] MEDS: ALBUT/IPRATROP 3MG/0.5MG NEB 3 ML VIAL INH SCH ×6 (05:16→23:56)
[2020-12-28] MEDS: SODIUM CHLORIDE 0.9% 1000ML 1,000 ML IV SCH ×3 (05:22→16:30)
[2020-12-28 06:19] LABS: Basophils # (auto) 0.01 K/uL (0-0.2); Basophils % (auto) 0.1 %; Hematocrit (blood only) 41.6 % (42-52); Hemoglobin 14.2 g/dL (14.0-18.0); Immature Granulocytes # (auto) 0.08 K/uL (0.00-0.02); Immature Granulocytes % (auto) 0.5 %; Lymphocytes # (auto) 0.83 K/uL (1.2-3.4); Lymphocytes % (auto) 5.5 %; Mean Corpuscular Hemoglobin 29.5 pg (25-34); Mean Corpuscular Hgb Conc 34.1 g/dL (32-36); Mean Corpuscular Volume 86.5 fL (80-100); Mean Platelet Volume 12.1 fL (7.4-10.4); Monocytes # (auto) 1.43 K/uL (0.11-0.59); Monocytes % (auto) 9.5 %; Neutrophils # (auto) 12.63 K/uL (1.4-6.5); Neutrophils % (auto) 84.4 %; Platelet Count 222 K/uL (130-400); RDW Coefficient of Variation 14.1 % (11.5-14.5); RDW Standard Deviation 44.9 fL (36.4-46.3); Red Blood Count 4.81 M/uL (4.7-6.1); White Blood Count 14.98 K/uL (4.8-10.8)
--- NOTE | 2020-12-28 07:10 | XRay Report ---
XR chest 1V portable CLINICAL HISTORY: Cough. COMPARISON STUDY: Chest radiograph December 08, 2019. FINDINGS: Elevation of the left hemidiaphragm is unchanged. There is a trace left pleural effusion. C ardiomegaly is noted. There are calcified mediastinal lymph nodes. Calcified granulomas within the eric ngs are noted. There is no pneumothorax. There is no evidence for pulmonary edema. There are mild bib asilar opacities. IMPRESSION: 1. Mild bibasilar opacities which favor atelectasis. 2. Cardiomegaly without evidence for pulmonary edema. ACT 112: Negative or not required by law. Electronically signed by: Bib Castanon M.D. 12/28/2020 7:09 AM
[2020-12-28] MEDS: LEVOTHYROXINE SODIUM 50 MCG TABLET PO SCH (07:55)
[2020-12-28] MEDS: INSULIN ASPART 100 UNITS/ML 3 ML PEN SC SCH ×4 (07:57→20:43)
[2020-12-28] MEDS ORDERED: PHARMACY GLYCEMIC MGMT CONSULT PRN (08:49)
[2020-12-28] MEDS ORDERED: INSULIN HUMAN NPH SC ONE (09:00)
[2020-12-28] MEDS ORDERED: INSULIN GLARGINE SOLOSTAR 100 UNITS/ML 3 ML PEN SC SCH (09:00)
[2020-12-28] MEDS: PIPERACILLIN/TAZOBACTAM 3.375 GM in DEXTROSE 5% 100 ML IV SCH ×2 (09:34→17:41)
[2020-12-28] MEDS: FINASTERIDE 5 MG TAB PO SCH (09:35)
[2020-12-28] MEDS: DONEPEZIL HCL 5 MG TAB PO SCH (09:35)
[2020-12-28] MEDS: guaiFENesin 600 MG TABCR PO SCH ×2 (09:36→20:43)
--- NOTE | 2020-12-28 09:45 | XRay Report ---
XR chest 2V PA/lateral CLINICAL HISTORY: ?RLL PNA COMPARISON STUDY: Chest radiograph December 08, 2019 and December 27, 2020. FINDINGS: Calcified thoracic lymph nodes are noted. There are calcified granulomas within the spleen. Elevation of the left hemidiaphragm is unchanged. Small left pleural effusion is noted. Interstitial thickening represents mild pulmonary edema. Mild bibasilar opacities favor atelectasis. Cardiomegaly is unchanged. IMPRESSION: 1. Cardiomegaly. Interstitial thickening consistent with mild pulmonary edema. 2. Small left pleural effusion. 3. Elevation of the left hemidiaphragm. Bibasilar opacities favor atelectasis. ACT 112: Negative or not required by law. Electronically signed by: Bib Castanon M.D. 12/28/2020 9:44 AM
--- NOTE | 2020-12-28 13:58 | Pharmacy Report ---
Pharmacy Glycemic Short Note 2 - Date of Service December 28, 2020 - Glycemic Short BSG Results (Last 24 hours): 12/27/20 12/27/20 12/28/20 21:55 23:00 01:33 Glucose 421 H* POC Glucose 407 H* 388 H* 12/28/20 12/28/20 12/28/20 03:05 07:48 11:35 Glucose POC Glucose 376 H* 337 H* 241 H OUTPATIENT ANTIDIABETIC REGIMEN: * Novolog 70/30 mix 36 units BID, Novolog correctional sliding scale prior to meals * A1c ordered for 6 AM ASSESSMENT: * 89 yo male presenting to the ED with complaints of hyperglycemia secondary to outpatient steroid use. Patient had recently started prednisone 50 mg daily for possible COPD/upper respiratory infection. Patient was seen in primary care office on 12/27. * BSGs were significantly elevated on admission in the 400s, down to 337 mg/dL this morning with 8 units of IV regular insulin/fluids. * Patient is ordered a T2DM diet, will utilize NPH and Novolog for basal/bolus. BSG improved down to 241 mg/dL at lunch. * Steroids not continued inpatient. Would favor gradual reduction in BSGs as target BSG outpatient <200 mg/dL, will utilize goal range 140-180 mg/dL. PLAN FOR INPATIENT GLYCEMIC CONTROL: * Hold outpatient oral diabetes medications * Basal insulin * NPH 15 units with meals * Bolus insulin * NovoLog per scale ACHS or Q6hrs while NPO * Goal Range: Low 140 mg/dL - High 180 mg/dL * Correction Factor: 20 mg/dL/unit * Nutritional / Prandial insulin per carb ratio of 1 unit per 7 grams CHO consumed
[2020-12-28] MEDS: AMIODARONE 200 MG TAB PO SCH (16:31)
[2020-12-28] MEDS ORDERED: INSULIN HUMAN NPH SC SCH (17:00)
[2020-12-28] MEDS ORDERED: fentaNYL citrate 100 MCG/2 ML VIAL IV ONE (20:11)
[2020-12-28] MEDS ORDERED: SUCCINYLCHOLINE CHLORIDE 20 MG/ML 10 ML VIAL IV ONE (20:11)
[2020-12-28] MEDS ORDERED: ETOMIDATE 2 MG/ML 20 ML VIAL IV ONE (20:11)
[2020-12-28] MEDS: ROSUVASTATIN CALCIUM 5 MG TAB PO SCH (20:43)
[2020-12-28] MEDS: RIVAROXABAN 20 MG TAB PO SCH (20:43)
[2020-12-29] MEDS: INSULIN ASPART 100 UNITS/ML 3 ML PEN SC SCH ×7 (00:12→23:54)
[2020-12-29] MEDS: PIPERACILLIN/TAZOBACTAM 3.375 GM in DEXTROSE 5% 100 ML IV SCH ×2 (01:10→11:11)
[2020-12-29] MEDS: ALBUT/IPRATROP 3MG/0.5MG NEB 3 ML VIAL INH SCH ×6 (03:58→22:51)
[2020-12-29] MEDS: LEVOTHYROXINE SODIUM 50 MCG TABLET PO SCH (05:38)
[2020-12-29] MEDS ORDERED: INSULIN HUMAN NPH SC SCH ×3 (08:30→18:00)
[2020-12-29] MEDS: guaiFENesin 600 MG TABCR PO SCH ×2 (08:59→20:42)
[2020-12-29] MEDS: DONEPEZIL HCL 5 MG TAB PO SCH (08:59)
[2020-12-29] MEDS: FINASTERIDE 5 MG TAB PO SCH (09:00)
[2020-12-29 10:22] LABS: Basophils # (auto) 0.08 K/uL (0-0.2); Basophils % (auto) 0.8 %; Eosinophils # (auto) 0.24 K/uL (0-0.5); Eosinophils % (auto) 2.3 %; Hematocrit (blood only) 45.9 % (42-52); Hemoglobin 15.7 g/dL (14.0-18.0); Immature Granulocytes # (auto) 0.13 K/uL (0.00-0.02); Immature Granulocytes % (auto) 1.2 %; Lymphocytes # (auto) 0.69 K/uL (1.2-3.4); Lymphocytes % (auto) 6.6 %; Mean Corpuscular Hemoglobin 29.4 pg (25-34); Mean Corpuscular Hgb Conc 34.2 g/dL (32-36); Mean Platelet Volume 11.4 fL (7.4-10.4); Monocytes # (auto) 1.28 K/uL (0.11-0.59); Monocytes % (auto) 12.3 %; Neutrophils # (auto) 8.02 K/uL (1.4-6.5); Neutrophils % (auto) 76.8 %; Platelet Count 214 K/uL (130-400); RDW Coefficient of Variation 14.2 % (11.5-14.5); RDW Standard Deviation 44.6 fL (36.4-46.3); Red Blood Count 5.34 M/uL (4.7-6.1); White Blood Count 10.44 K/uL (4.8-10.8)
[2020-12-29 10:44] LABS: Estimated Average Glucose 206 mg/dl; Hemoglobin A1C 8.8 % (4.5-5.6)
[2020-12-29 10:46] LABS: Albumin Level 2.9 gm/dl (3.4-5.0); BUN Creatinine Ratio 15.7 (10-20); Bilirubin Direct 0.3 mg/dl (0-0.2); Bilirubin,Total 0.9 mg/dl (0.2-1); Calcium 8.9 mg/dl (8.5-10.1); Est GFR (African American) 51.7 ml/min; Est GFR (Non-African American) 44.6 ml/min; Potassium 3.8 mmol/L (3.5-5.1); Total Protein 6.1 gm/dl (6.4-8.2)
[2020-12-29 10:58] LABS: Beta-Hydroxybutyrate 2.11 mg/dl (0.2-2.81)
[2020-12-29] MEDS ORDERED: INSULIN HUMAN REGULAR PER UNIT 5 UNITS in SYRINGE 4.95 ML IV ONE (12:15)
[2020-12-29] MEDS ORDERED: LANTUS PER UNIT CHARGE SQ ONE (12:30)
--- NOTE | 2020-12-29 14:21 | Hospitalist Progress Note ---
Date of Service December 29, 2020 Assessment & Plan (1) Hyperglycemia: Due to steroid use. Usual blood sugars range from 200 - 300 per . Over 500 at home prior to admission. - Slowly improving at first, then jumped up to >300 again today. - Discussed with pharmacist; adjusting NPH order. - Likely stay another night until sugars under better control. (2) Pneumonia: Reported cough at home, but no fevers. Breathing at baseline. CXRs have all shown atelectasis. No fever here. Leukocytosis on admission; now resolved, though was on steroids. Procalcitonin was 0.16. - Stop abx at this time. Low concern for pneumonia. (3) Diabetes type 2, uncontrolled: A1c was 8.8% this admission. Given age, A1c goal is ~8.0% per pharmacy. - As above (4) Hypothyroidism: TSH was 4.0 in 04/2020. No signs/symptoms of hypo-/hyperthyroidism. - Continue home Synthroid 50 mcg (5) Chronic a-fib: Stable and well-controlled. - Continue amiodarone - Continue rivaroxaban (6) COPD (chronic obstructive pulmonary disease): Possible COPD exacerbation is what kicked this all off with oral steroids. - Presently breathing at baseline per patient. - Continue home COPD regimen (which includes Q4h nebs) (7) DVT prophylaxis: On rivaroxaban for afib Admission and Anticipated Discharge Date Admission Date: December 28, 2020 Subjective Feels well overall. Sugars still not under ideal control. Reports no fevers/chills, chest pain, shortness of breath, abdominal pain, nausea, or vomiting. Physical Exam Constitutional: WD/WN, vitals as above Eyes: EOM intact bilaterally; no conjunctival abnormality ENMT: external ear and nose normal, oropharynx normal Neck: trachea midline, no thyromegaly normal visual inspection Respiratory: normal respiratory effort, lungs clear to auscultation no respiratory distress Cardiovascular: RRR, no murmur, no edema Gastrointestinal (Abdomen): Inspection/Auscultation: abdomen normal to inspection; abdomen not distended Musculoskeletal: no cyanosis or clubbing, extremities motor strength 5/5 Skin: no rashes, warm and dry Neurologic: moves all extremities and awake Psychiatric: Orientation: alert, oriented to person and cooperative Results & Data Results & Data ([facility]) Vital Signs (Past 12 Hours) Vital Signs Temp Pulse Pulse Pulse Resp BP Pulse Ox 12/29/20 11:57 36.4 C L 79 16 92/54 L 93 12/29/20 11:11 74 18 92 12/29/20 07:52 73 12/29/20 07:38 36.5 C 82 20 151/71 H 92 12/29/20 07:32 72 18 92 12/29/20 04:50 37.0 C 70 18 130/70 91 12/29/20 04:45 37.0 C 75 18 147/92 H 91 12/29/20 03:51 81 16 93 PG Care Time/CCT Total # of Minutes Spent Total Time Spent with Patient: Total time spent is greater than 50% in coordination of care (as documented) at patient's floor/unit and/or counseling patient: Coding Level of Care Code 18662 Subseq Hosp Care Lvl 3 Diagnoses Hyperglycemia R73.9 Pneumonia J18.9 Laterality: right Lung location: lower lobe of lung Pneumonia type: due to unspecified organism Diabetes type 2, uncontrolled E11.65 Hypothyroidism E03.9 Hypothyroidism type: unspecified Chronic a-fib I48.2 COPD (chronic obstructive pulmonary disease) J44.0 COPD type: COPD with acute lower respiratory infection DVT prophylaxis Z29.9 (1) Hypothyroidism Hypothyroidism type: unspecified Qualified Code(s): E03.9 - Hypothyroidism, unspecified (2) COPD (chronic obstructive pulmonary disease) COPD type: COPD with acute lower respiratory infection Qualified Code(s): J44.0 - Chronic obstructive pulmonary disease with (acute) lower respiratory infection (3) Pneumonia Laterality: right Lung location: lower lobe of lung Pneumonia type: due to unspecified organism Qualified Code(s): J18.9 - Pneumonia, unspecified organism
--- NOTE | 2020-12-29 15:12 | Pharmacy Report ---
Pharmacy Glycemic Short Note 2 - Date of Service December 29, 2020 - Glycemic Short BSG Results (Last 24 hours): 12/28/20 12/28/20 12/28/20 16:27 20:14 23:57 Glucose POC Glucose 79 216 H 191 H 12/29/20 12/29/20 12/29/20 03:38 07:44 10:08 Glucose 344 H* POC Glucose 227 H 246 H 12/29/20 12/29/20 11:49 11:49 Glucose POC Glucose 369 H* 367 H* OUTPATIENT ANTIDIABETIC REGIMEN: * Novolog 70/30 mix 36 units BID, Novolog correctional sliding scale prior to meals * A1c ordered for 12/29 AM ASSESSMENT: 12/29 * Patient received total of 40 units of insulin yesterday, of which only 15 units were NPH. * Fasting BSG elevated this AM at 246 mg/dL - appears evening NPH dose had been held for BSG of 79 mg/dL * Increased AM NPH to 15 units, lunch BSG trending up - could be basal deficient from held dose, had been on steroids prior to admission which contributed to hyperglycemia on admission. Gave small IV bolus at lunch and also small dose of Lantus to provider longer coverage * Continue NPH 15 units BID for now. Will add overnight checks. 12/28 * 89 yo male presenting to the ED with complaints of hyperglycemia secondary to outpatient steroid use. Patient had recently started prednisone 50 mg daily for possible COPD/upper respiratory infection. Patient was seen in primary care office on 12/27. * BSGs were significantly elevated on admission in the 400s, down to 337 mg/dL t his morning with 8 units of IV regular insulin/fluids. * Patient is ordered a T2DM diet, will utilize NPH and Novolog for basal/bolus. BSG improved down to 241 mg/dL at lunch. * Steroids not continued inpatient. Would favor gradual reduction in BSGs as target BSG outpatient <200 mg/dL, will utilize goal range 140-180 mg/dL. PLAN FOR INPATIENT GLYCEMIC CONTROL: * Hold outpatient oral diabetes medications * Basal insulin * NPH 15 units with meals * Bolus insulin * NovoLog per scale ACHS or Q6hrs while NPO * Goal Range: Low 140 mg/dL - High 180 mg/dL * Correction Factor: 20 mg/dL/unit * Nutritional / Prandial insulin per carb ratio of 1 unit per 7 grams CHO consumed PLAN FOR DISCHARGE: * TBD
[2020-12-29] MEDS: AMIODARONE 200 MG TAB PO SCH (17:45)
[2020-12-29] MEDS: ROSUVASTATIN CALCIUM 5 MG TAB PO SCH (20:41)
[2020-12-29] MEDS: RIVAROXABAN 20 MG TAB PO SCH (20:41)
[2020-12-29] MEDS: CARBOHYDRATES FOR HYPOGLYCEMIA PO PRN ×2 (22:48→23:08)
[2020-12-30 00:43] LABS: Hematocrit (blood only) 42.2 % (42-52); Hemoglobin 14.6 g/dL (14.0-18.0); Mean Corpuscular Hemoglobin 30.2 pg (25-34); Mean Corpuscular Volume 87.2 fL (80-100); Mean Platelet Volume 11.4 fL (7.4-10.4); Platelet Count 216 K/uL (130-400); RDW Coefficient of Variation 14.2 % (11.5-14.5); RDW Standard Deviation 45.7 fL (36.4-46.3); Red Blood Count 4.84 M/uL (4.7-6.1); White Blood Count 13.58 K/uL (4.8-10.8)
[2020-12-30 01:03] LABS: Mean Corpuscular Hgb Conc 34.6 g/dL (32-36)
[2020-12-30 01:32] LABS: Basophils # (auto) 0.05 K/uL (0-0.2); Basophils % (auto) 0.4 %; Eosinophils # (auto) 0.32 K/uL (0-0.5); Eosinophils % (auto) 2.4 %; Immature Granulocytes # (auto) 0.18 K/uL (0.00-0.02); Immature Granulocytes % (auto) 1.3 %; Lymphocytes # (auto) 1.54 K/uL (1.2-3.4); Lymphocytes % (auto) 11.3 %; Monocytes # (auto) 0.54 K/uL (0.11-0.59); Neutrophils # (auto) 10.95 K/uL (1.4-6.5); Neutrophils % (auto) 80.6 %
[2020-12-30] MEDS: ALBUT/IPRATROP 3MG/0.5MG NEB 3 ML VIAL INH SCH ×2 (03:09→07:07)
[2020-12-30] MEDS: INSULIN ASPART 100 UNITS/ML 3 ML PEN SC SCH ×6 (04:38→23:35)
[2020-12-30] MEDS: LEVOTHYROXINE SODIUM 50 MCG TABLET PO SCH (05:50)
[2020-12-30 06:18] LABS: Hematocrit (blood only) 44.5 % (42-52); Hemoglobin 15.3 g/dL (14.0-18.0); Mean Corpuscular Hemoglobin 29.8 pg (25-34); Mean Corpuscular Hgb Conc 34.4 g/dL (32-36); Mean Corpuscular Volume 86.7 fL (80-100); Mean Platelet Volume 11.8 fL (7.4-10.4); Platelet Count 228 K/uL (130-400); RDW Coefficient of Variation 14.2 % (11.5-14.5); RDW Standard Deviation 45.3 fL (36.4-46.3); Red Blood Count 5.13 M/uL (4.7-6.1); White Blood Count 11.94 K/uL (4.8-10.8)
[2020-12-30 06:38] LABS: Albumin Level 2.7 gm/dl (3.4-5.0); BUN Creatinine Ratio 17.4 (10-20); Bilirubin Direct 0.2 mg/dl (0-0.2); Calcium 8.9 mg/dl (8.5-10.1); Creatinine Clr Calc Pharmacy 49.1 ml/min; Est GFR (African American) 75.2 ml/min; Est GFR (Non-African American) 64.9 ml/min; Magnesium 2.1 mg/dl (1.8-2.4)
[2020-12-30 06:41] LABS: Bilirubin,Total 0.8 mg/dl (0.2-1); Total Protein 5.6 gm/dl (6.4-8.2)
[2020-12-30 07:29] LABS: Base Excess VBG 0.4 mEq/L; Oxygen Saturation VBG 60.2 %; pH VBG 7.43 (7.36-7.41)
[2020-12-30] MEDS ORDERED: RAPID SEQUENCE INDUCTION BAG ONE (07:35)
[2020-12-30] MEDS ORDERED: AZITHROMYCIN 500 MG in DEXTROSE 5% 250 ML IV ONE (08:00)
[2020-12-30] MEDS ORDERED: STAT IV Infusion **Titration per Protocol STA ×5 (08:15→15:10)
[2020-12-30] MEDS ORDERED: PROPOFOL BOLUS FROM BAG IV PRN ×2 (08:15→09:01)
[2020-12-30] MEDS ORDERED: PROPOFOL IV EMULSION 10 MG/ML 100 ML VIAL IV ONE (08:15)
[2020-12-30] MEDS ORDERED: propofoL 1,000 MG/100 ML VIAL IV SCH ×2 (08:15→09:01)
[2020-12-30] MEDS ORDERED: VECURONIUM BROMIDE 10 MG VIAL IV STA (08:19)
[2020-12-30] MEDS ORDERED: VECURONIUM BROMIDE 10 MG VIAL IV ONE (08:21)
[2020-12-30] MEDS ORDERED: INSULIN HUMAN NPH SC SCH (08:30)
--- NOTE | 2020-12-30 08:33 | XRay Report ---
XR chest 1V portable CLINICAL HISTORY: hypoxia COMPARISON STUDY: 12/28/2020 FINDINGS: The heart is enlarged. There is elevation left hemidiaphragmatic contour. A small left pleu ral effusion is suspected. There are basilar opacities, likely atelectatic. There is calcified right midlung zone granuloma. There is mild central vascular prominence.[There calcified hilar mediastinal lymph nodes consistent with old granulomatous disease. IMPRESSION: 1. Cardiomegaly and mild interstitial/vascular prominence 2. Elevation left hemidiaphragm 3. Suspected small left pleural effusion with basilar atelectasis ACT 112: Negative or not required by law. Electronically signed by: Sukhwinder Márquez M.D. 12/30/2020 8:32 AM
[2020-12-30] MEDS ORDERED: ICU PROTOCOL FOR HYPERGLYCEMIA PRN (09:01)
--- NOTE | 2020-12-30 09:01 | XRay Report ---
XR chest 1V portable CLINICAL HISTORY: Hypoxemia COMPARISON STUDY: 12/30/2020 FINDINGS: There has been interval placement of an endotracheal tube 6.6 cm above the iwona. There is been placement of a enteric tube positioned within the stomach. There is a small left pleural effusi on and trace right pleural effusion. There is left lower lobe atelectasis/consolidation. There is lef t lung volume loss. There are calcified mediastinal and hilar lymph nodes. There is suspected underly ing emphysema.[ IMPRESSION: 1. Interval placement of endotracheal tube 66 mm above the iwona 2. Interval placement of an enteric tube positioned within the stomach 3. Left pleural effusion with associated left lower lobe atelectasis/consolidation 4. Left lung volume loss 5. Trace right pleural effusion 6. Emphysema ACT 112: Negative or not required by law. Electronically signed by: Sukhwinder Márquez M.D. 12/30/2020 9:00 AM
--- NOTE | 2020-12-30 09:02 | Procedure Note ---
Procedure Note Date of Service December 30, 2020 Procedure Date: Noted above Procedure: Endotracheal intubation Pre-procedure Diagnosis: Acute hypoxic respiratory failure Post-procedure Diagnosis: same as above Prior to Procedure: Informed Consent: emergent Attending Staff: Allan Pham DO The identity of the patient was confirmed and a bedside time out was performed. Description of Procedure: Patient was evaluated and required intubation for impending respiratory failure. The patient was prepared in the usual fashion. A video laryngoscope was used. A 8 mm inner diameter endotrachial tube was placed endotracheally to 25 cm at the teeth. A grade 1 view was obtained. The endotracheal tube was noted to pass through the vocal cords. Chest rise was bilateral. Bilateral breath sounds were heard without air sounds in the abdomen. Mist was noted in the endotracheal tube. End-tidal CO2 measurement was positive. Chest x-ray shows proper endotracheal tube placement. Complications: None Findings: Not applicable Specimens: Not applicable Estimated blood loss: Zero Coding CPT Codes Resuscitation - Resuscitation: 49882 Endotracheal Intubation, emergency ([id number]) [facility] Procedure Codes (Charges) Resuscitation Resuscitation: 06048 Endotracheal Intubation, emergency
[2020-12-30] MEDS ORDERED: NOREPINEPHRINE/D5W 8 MG/508 ML IV ONE (09:09)
[2020-12-30] MEDS ORDERED: ALBUT/IPRATROP 3MG/0.5MG NEB 3 ML VIAL INH PRN (09:10)
[2020-12-30] MEDS ORDERED: NOREPINEPHRINE/D5W 8 MG/508 ML BAG IV SCH (09:15)
[2020-12-30 09:16] LABS: iSTAT Allen Test Pass; iSTAT Arterial Blood Gas HCO3 23 meg/L (19-24); iSTAT Arterial Blood Gas pCO2 39 mmHg (35-46); iSTAT Arterial Blood Gas pH 7.38 (7.35-7.45); iSTAT Arterial Blood Gas pO2 46 mmHg (80-95); iSTAT Carbon Dioxide 24 mmol/L (24-31); iSTAT Site R Radial
[2020-12-30] MEDS: AMPICILLIN/SULBACTAM SOD 3,000 MG in 0.9 % SODIUM CHLORIDE 100 ML IV SCH ×3 (09:59→20:58)
[2020-12-30] MEDS ORDERED: INSULIN GLARGINE SOLOSTAR 100 UNITS/ML 3 ML PEN SC SCH ×2 (10:15→21:00)
[2020-12-30] MEDS: DONEPEZIL HCL 5 MG TAB PO SCH (11:11)
[2020-12-30] MEDS: FINASTERIDE 5 MG TAB PO SCH (11:12)
[2020-12-30] MEDS: NORMOSOL-R 1,000 ML IV SCH ×2 (11:13→23:34)
--- NOTE | 2020-12-30 11:36 | Critical Care Consultation ---
Date of Consultation December 30, 2020 Assessment & Plan (1) Acute and chronic respiratory failure with hypoxia: Reason Critically Ill: 89-year-old male with severe acute hypoxic respiratory failure PLAN: Neuro: Analgesia and sedation -Did not tolerate propofol transition to Precedex Resp: COPD Acute hypoxic respiratory failure -Continue nebs -Solu-Medrol 40 mg every 8 hours -Repeat Covid testing -Influenza negative -Plan bronchoscopy today if Covid negative CV: Atrial fibrillation: Rate controlled -On Xarelto Fluids/Renal: Maintenance fluids at 80 mL's per hour -Start tube feeding ID: Unasyn azithromycin -Appropriate coverage GI/Nutrition: Start tube feeding Heme: Long-term anticoagulation DVT prophylaxis: Xarelto Endocrine: ICU hyperglycemia protocol -Hyperglycemia secondary to steroids Vascular access: Peripheral IV Code Status: Full code Disposition: ICU Supervising Physician Co-Signing Physician Notes I have personally spent 45 minutes of critical care time in the direct management of this patient. This is a life/limb threatening event. This includes time spent evaluating patient, direct bedside care, chart review, placing orders, interpretation of diagnostic studies, discussion with consultants, patient, and/or family members regarding treatment decisions, as well as other required patient management activities. This time is exclusive of all separately billable procedures, and teaching time and separate from and in addition to any other critical care service time. History of Present Illness Reason for Consultation: Code purple, acute hypoxic respiratory failure Requesting Physician: Vance Natarajan Attending Physician: Vance Natarajan MD History of Present Illness Patient is an 89-year-old male with a past medical history for COPD who does not wear home oxygen at baseline who presented for hyperglycemia after being managed as an outpatient with a course of antibiotics and a course of steroids for upper respiratory tract infection. During my evaluation the patient was hypoxic in the 60s on noninvasive ventilation and he was experiencing shortness of breath he denies chest pain no other flulike symptoms no Covid exposure. Patient was promptly intubated due to the acuity of his illness. Allergies Allergy/AdvReac Type Severity Reaction Status Date / Time atorvastatin AdvReac Intermediate leg pain Verified 12/28/20 02:02 Home Medications Medication Instructions Recorded Confirmed Type cholecalciferol (vitamin D3) 1,000 unit PO BID 07/16/18 12/28/20 History [Vitamin D3] ipratropium-albuterol 3 ml INHALATION Q4 PRN 07/16/18 12/28/20 History lancets 33 gauge #100 ea 02/08/19 12/25/20 History vit C 250 mg-vit E 90 mg-zinc 40 1 tab PO QAM 02/08/19 12/28/20 History mg-copper 1 [id number] capsule Calcium 600 + D(3) 1 cap PO QPM 09/01/19 12/28/20 History acetaminophen 325 mg capsule 650 mg PO Q4H PRN cap 10/13/19 12/28/20 History ostomy supplies #10 ea 11/12/19 12/25/20 Rx ostomy supplies #2 box 11/12/19 12/25/20 Rx rivaroxaban 20 mg tablet 20 mg PO QPM #90 tab 03/24/20 12/28/20 Rx insulin aspart U-100 100 unit/mL See Rx Instructions SQ TID #1 box 05/25/20 12/28/20 Rx (3 mL) subcutaneous pen MDD 17 units a day levothyroxine 50 mcg tablet 50 mcg PO QAM #90 tab 06/22/20 12/28/20 Rx albuterol sulfate 90 mcg/actuation 2 puff INHALATION Q4 PRN #18 g 09/15/20 12/28/20 Rx aerosol inhaler rosuvastatin 5 mg tablet 5 mg PO QPM #90 tab 11/21/20 12/28/20 Rx OneTouch Ultra Blue Test Strip #400 ea NS 12/06/20 12/25/20 Rx pen needle, diabetic 32 gauge x #100 ea 12/06/20 12/25/20 Rx 5/32" insulin syringe-needle U-100 1 mL #200 ea 12/21/20 12/25/20 Rx 31 gauge x 5/16" amoxicillin 875 mg-potassium 1 tab PO BID #20 tab 12/25/20 12/28/20 Rx clavulanate 125 mg tablet amiodarone 200 mg tablet 200 mg PO 1700 #90 tab 12/28/20 Rx donepezil [Aricept] 5 mg PO QAM 12/28/20 12/28/20 History finasteride [Proscar] 5 mg PO QAM 12/28/20 12/28/20 History insulin asp prt-insulin aspart 36 unit SUBCUT BID 12/28/20 12/28/20 History [Novolog Mix 70-30 U-100 Insuln] Patient History Medical History (Updated 12/30/20 @ 11:32 by Gerson Pham DO) Carcinoma of lower lobe, 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) Cerumen impaction Chronic a-fib Controlled and stable Chronic back pain 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 - no issues - does not follow with specialist- stable Colon cancer S/p colectomy- has iliostomy- no chemo or XRT Glaucoma Hypertrophic cardiomyopathy mean gradient of 10mmHg on echo from 03/06 Lumbar stenosis Lung cancer s/p lobectomy - LLL- no chemo or XRT Osteoarthritis Pancreatitis ~20 years ago Renal cyst Ulcerative colitis hx Vitamin D deficiency Surgical History History of adenoidectomy History of appendectomy History of bronchoscopy History of cataract surgery bilateral History of colectomy History of colonoscopy History of colostomy History of ERCP History of herniorrhaphy around stoma History of lobectomy of lung (05/06/12) left lower lobe History of lung surgery History of partial pancreatectomy [facility] (Dr Escobar) ~20 years ago History of tonsillectomy S/P epidural steroid injection Family History Mother Diabetes Heart disease Myocardial infarction Hypertension Irritable bowel syndrome (IBS) Father Irritable bowel syndrome (IBS) Sister Heart disease Brother Heart disease Other Crohn's disease Kidney disease No family history of adverse response to anesthesia Denies family history of Ovarian cancer Prostate cancer Breast cancer Colorectal cancer Social History Smoking Status: Former smoker Second Hand Exposure: Yes (hx); Hx Alcohol Use: Yes Alcohol type: hard liquor Alcohol Intake Frequency Comment: 1 every couple days Hx Substance Use: No Preferred Language: U[place] Communication Ability: Effective Visual Impairment: No Limitations C Architect Required: No Beliefs That Will Affect Care: None marital status: Current Living Situation: Spouse Current Living Situation Comment: House current occupational status: retired Feels Safe at Home: No Is there a partner from a previous relationship who is making you feel unsafe now?: No Dental Care, Regularly: Yes Seatbelt Use: always Assistive Devices: Walker Review of Systems Review of Systems: All systems reviewed & are unremarkable except as noted in HPI & below Physical Exam Physical Exam: General: Alert. . Skin: Warm, dry, Head: Atraumatic Ears, nose, mouth and throat: airway patent Cardiovascular: Normal peripheral perfusion Respiratory: respiratory distress Gastrointestinal: Non distended Musculoskeletal: No deformity Results & Data Results & Data ([facility]) Vital Signs (Past 12 Hours) Vital Signs Temp Pulse Pulse Pulse Resp BP Pulse Ox 12/30/20 10:36 93 H 22 94 12/30/20 07:40 86 25 H 92 12/30/20 07:09 90 28 H 90 12/30/20 07:07 90 28 H 88 L 12/30/20 03:09 63 20 94 12/30/20 03:05 24 89 L 12/30/20 02:55 24 84 L 12/30/20 00:33 61 20 93 12/30/20 00:11 90 12/30/20 00:04 35.8 C L 66 18 139/66 89 L Laboratory Results 12/30/20 12/30/20 12/30/20 Range/Units 09:50 09:39 08:43 WBC (4.8-10.8) K/uL RBC (4.7-6.1) M/uL Hgb (14.0-18.0) g/dL Hct (42-52) % MCV (80-100) fL MCH (25-34) pg MCHC (32-36) g/dL RDW Std Deviation (36.4-46.3) fL RDW Coeff of [place] (11.5-14.5) % Plt Count (130-400) K/uL MPV (7.4-10.4) fL Immature Gran % (Auto) % Neut % (Auto) % Lymph % (Auto) % [place] % (Auto) % Eos % (Auto) % Baso % (Auto) % Neut # (Auto) (1.4-6.5) K/uL Lymph # (Auto) (1.2-3.4) K/uL [place] # (Auto) (0.11-0.59) K/uL Eos # (Auto) (0-0.5) K/uL Baso # (Auto) (0-0.2) K/uL Immature Gran # (Auto) (0.00-0.02) K/uL Sample Site POC pH (7.35-7.45) POC pCO2 (35-46) mmHg POC pO2 (80-95) mmHg POC HCO3 (19-24) humza/L POC Total CO2 (24-31) mmol/L POC Base Excess (-9-1.8) humza/L POC ABG O2 Sat (90-95) % Enrique Test VBG pH (7.36-7.41) VBG pCO2 (38-50) mmHg VBG pO2 mmHg VBG HCO3 mmol/L VBG O2 Saturation % VBG Base Excess mEq/L Barometric Pressure mm/Hg O2 Delivery Device Sodium (136-145) mmol/L Potassium (3.5-5.1) mmol/L Chloride (98-107) mmol/L Carbon Dioxide (21-32) mmol/L Anion Gap (3-11) BUN (7-18) mg/dl Creatinine (0.6-1.4) mg/dl Est Cr Clr Drug Dosing ml/min Est GFR ( Amer) ml/min Est GFR (Non-Af Amer) ml/min BUN/Creatinine Ratio (10-20) Glucose (70-99) mg/dl POC Glucose 221 H (70-99) mg/dl Lactate 1.9 (0.4-2.0) mmol/L Calcium (8.5-10.1) mg/dl Magnesium (1.8-2.4) mg/dl Total Bilirubin (0.2-1) mg/dl Direct Bilirubin (0-0.2) mg/dl AST (15-37) U/L ALT (12-78) U/L Alkaline Phosphatase (45-117) U/L Troponin I 0.026 (0-0.045) ng/ml NT-Pro-B Natriuret Pep (0-1800) pg/ml Total Protein (6.4-8.2) gm/dl Albumin (3.4-5.0) gm/dl Procalcitonin (0-0.5) ng/ml 12/30/20 12/30/20 12/30/20 Range/Units 08:24 07:33 07:14 WBC (4.8-10.8) K/uL RBC (4.7-6.1) M/uL Hgb (14.0-18.0) g/dL Hct (42-52) % MCV (80-100) fL MCH (25-34) pg MCHC (32-36) g/dL RDW Std Deviation (36.4-46.3) fL RDW Coeff of [place] (11.5-14.5) % Plt Count (130-400) K/uL MPV (7.4-10.4) fL Immature Gran % (Auto) % Neut % (Auto) % Lymph % (Auto) % [place] % (Auto) % Eos % (Auto) % Baso % (Auto) % Neut # (Auto) (1.4-6.5) K/uL Lymph # (Auto) (1.2-3.4) K/uL [place] # (Auto) (0.11-0.59) K/uL Eos # (Auto) (0-0.5) K/uL Baso # (Auto) (0-0.2) K/uL Immature Gran # (Auto) (0.00-0.02) K/uL Sample Site R Radial POC pH 7.38 (7.35-7.45) POC pCO2 39 (35-46) mmHg POC pO2 46 L (80-95) mmHg POC HCO3 23 (19-24) humza/L POC Total CO2 24 (24-31) mmol/L POC Base Excess -2.0 (-9-1.8) humza/L POC ABG O2 Sat 81.0 L (90-95) % Enrique Test Pass VBG pH 7.43 H (7.36-7.41) VBG pCO2 37 L (38-50) mmHg VBG pO2 27 mmHg VBG HCO3 24 mmol/L VBG O2 Saturation 60.2 % VBG Base Excess 0.4 mEq/L Barometric Pressure 729.0 mm/Hg O2 Delivery Device Ventilator Sodium (136-145) mmol/L Potassium (3.5-5.1) mmol/L Chloride (98-107) mmol/L Carbon Dioxide (21-32) mmol/L Anion Gap (3-11) BUN (7-18) mg/dl Creatinine (0.6-1.4) mg/dl Est Cr Clr Drug Dosing ml/min Est GFR ( Amer) ml/min Est GFR (Non-Af Amer) ml/min BUN/Creatinine Ratio (10-20) Glucose (70-99) mg/dl POC Glucose 186 H (70-99) mg/dl Lactate (0.4-2.0) mmol/L Calcium (8.5-10.1) mg/dl Magnesium (1.8-2.4) mg/dl Total Bilirubin (0.2-1) mg/dl Direct Bilirubin (0-0.2) mg/dl AST (15-37) U/L ALT (12-78) U/L Alkaline Phosphatase (45-117) U/L Troponin I (0-0.045) ng/ml NT-Pro-B Natriuret Pep (0-1800) pg/ml Total Protein (6.4-8.2) gm/dl Albumin (3.4-5.0) gm/dl Procalcitonin (0-0.5) ng/ml 12/30/20 12/30/20 12/30/20 Range/Units 07:14 06:02 06:02 WBC (4.8-10.8) K/uL RBC (4.7-6.1) M/uL Hgb (14.0-18.0) g/dL Hct (42-52) % MCV (80-100) fL MCH (25-34) pg MCHC (32-36) g/dL RDW Std Deviation (36.4-46.3) fL RDW Coeff of [place] (11.5-14.5) % Plt Count (130-400) K/uL MPV (7.4-10.4) fL Immature Gran % (Auto) % Neut % (Auto) % Lymph % (Auto) % [place] % (Auto) % Eos % (Auto) % Baso % (Auto) % Neut # (Auto) (1.4-6.5) K/uL Lymph # (Auto) (1.2-3.4) K/uL [place] # (Auto) (0.11-0.59) K/uL Eos # (Auto) (0-0.5) K/uL Baso # (Auto) (0-0.2) K/uL Immature Gran # (Auto) (0.00-0.02) K/uL Sample Site POC pH (7.35-7.45) POC pCO2 (35-46) mmHg POC pO2 (80-95) mmHg POC HCO3 (19-24) humza/L POC Total CO2 (24-31) mmol/L POC Base Excess (-9-1.8) humza/L POC ABG O2 Sat (90-95) % Enrique Test VBG pH (7.36-7.41) VBG pCO2 (38-50) mmHg VBG pO2 mmHg VBG HCO3 mmol/L VBG O2 Saturation % VBG Base Excess mEq/L Barometric Pressure mm/Hg O2 Delivery Device Sodium 140 (136-145) mmol/L Potassium 4.0 (3.5-5.1) mmol/L Chloride 107 (98-107) mmol/L Carbon Dioxide 29 (21-32) mmol/L Anion Gap 4.0 (3-11) BUN 18 (7-18) mg/dl Creatinine 1.02 (0.6-1.4) mg/dl Est Cr Clr Drug Dosing 49.1 ml/min Est GFR ( Amer) 75.2 ml/min Est GFR (Non-Af Amer) 64.9 ml/min BUN/Creatinine Ratio 17.4 (10-20) Glucose 137 H (70-99) mg/dl POC Glucose (70-99) mg/dl Lactate (0.4-2.0) mmol/L Calcium 8.9 (8.5-10.1) mg/dl Magnesium 2.1 (1.8-2.4) mg/dl Total Bilirubin 0.8 (0.2-1) mg/dl Direct Bilirubin 0.2 (0-0.2) mg/dl AST 45 H (15-37) U/L ALT 46 (12-78) U/L Alkaline Phosphatase 122 H (45-117) U/L Troponin I (0-0.045) ng/ml NT-Pro-B Natriuret Pep 1972 H (0-1800) pg/ml Total Protein 5.6 L (6.4-8.2) gm/dl Albumin 2.7 L (3.4-5.0) gm/dl Procalcitonin 0.32 (0-0.5) ng/ml 12/30/20 12/30/20 12/30/20 Range/Units 06:02 04:07 00:34 WBC 11.94 H 13.58 H (4.8-10.8) K/uL RBC 5.13 4.84 (4.7-6.1) M/uL Hgb 15.3 14.6 (14.0-18.0) g/dL Hct 44.5 42.2 (42-52) % MCV 86.7 87.2 (80-100) fL MCH 29.8 30.2 (25-34) pg MCHC 34.4 34.6 (32-36) g/dL RDW Std Deviation 45.3 45.7 (36.4-46.3) fL RDW Coeff of [place] 14.2 14.2 (11.5-14.5) % Plt Count 228 216 (130-400) K/uL MPV 11.8 H 11.4 H (7.4-10.4) fL Immature Gran % (Auto) 1.3 % Neut % (Auto) 80.6 % Lymph % (Auto) 11.3 % [place] % (Auto) 4.0 % Eos % (Auto) 2.4 % Baso % (Auto) 0.4 % Neut # (Auto) 10.95 H (1.4-6.5) K/uL Lymph # (Auto) 1.54 (1.2-3.4) K/uL [place] # (Auto) 0.54 (0.11-0.59) K/uL Eos # (Auto) 0.32 (0-0.5) K/uL Baso # (Auto) 0.05 (0-0.2) K/uL Immature Gran # (Auto) 0.18 H (0.00-0.02) K/uL Sample Site POC pH (7.35-7.45) POC pCO2 (35-46) mmHg POC pO2 (80-95) mmHg POC HCO3 (19-24) humza/L POC Total CO2 (24-31) mmol/L POC Base Excess (-9-1.8) humza/L POC ABG O2 Sat (90-95) % Enrique Test VBG pH (7.36-7.41) VBG pCO2 (38-50) mmHg VBG pO2 mmHg VBG HCO3 mmol/L VBG O2 Saturation % VBG Base Excess mEq/L Barometric Pressure mm/Hg O2 Delivery Device Sodium (136-145) mmol/L Potassium (3.5-5.1) mmol/L Chloride (98-107) mmol/L Carbon Dioxide (21-32) mmol/L Anion Gap (3-11) BUN (7-18) mg/dl Creatinine (0.6-1.4) mg/dl Est Cr Clr Drug Dosing ml/min Est GFR ( Amer) ml/min Est GFR (Non-Af Amer) ml/min BUN/Creatinine Ratio (10-20) Glucose (70-99) mg/dl POC Glucose 143 H (70-99) mg/dl Lactate (0.4-2.0) mmol/L Calcium (8.5-10.1) mg/dl Magnesium (1.8-2.4) mg/dl Total Bilirubin (0.2-1) mg/dl Direct Bilirubin (0-0.2) mg/dl AST (15-37) U/L ALT (12-78) U/L Alkaline Phosphatase (45-117) U/L Troponin I (0-0.045) ng/ml NT-Pro-B Natriuret Pep (0-1800) pg/ml Total Protein (6.4-8.2) gm/dl Albumin (3.4-5.0) gm/dl Procalcitonin (0-0.5) ng/ml 12/30/20 12/29/20 12/29/20 Range/Units 00:08 23:22 23:03 WBC (4.8-10.8) K/uL RBC (4.7-6.1) M/uL Hgb (14.0-18.0) g/dL Hct (42-52) % MCV (80-100) fL MCH (25-34) pg MCHC (32-36) g/dL RDW Std Deviation (36.4-46.3) fL RDW Coeff of [place] (11.5-14.5) % Plt Count (130-400) K/uL MPV (7.4-10.4) fL Immature Gran % (Auto) % Neut % (Auto) % Lymph % (Auto) % [place] % (Auto) % Eos % (Auto) % Baso % (Auto) % Neut # (Auto) (1.4-6.5) K/uL Lymph # (Auto) (1.2-3.4) K/uL [place] # (Auto) (0.11-0.59) K/uL Eos # (Auto) (0-0.5) K/uL Baso # (Auto) (0-0.2) K/uL Immature Gran # (Auto) (0.00-0.02) K/uL Sample Site POC pH (7.35-7.45) POC pCO2 (35-46) mmHg POC pO2 (80-95) mmHg POC HCO3 (19-24) humza/L POC Total CO2 (24-31) mmol/L POC Base Excess (-9-1.8) humza/L POC ABG O2 Sat (90-95) % Enrique Test VBG pH (7.36-7.41) VBG pCO2 (38-50) mmHg VBG pO2 mmHg VBG HCO3 mmol/L VBG O2 Saturation % VBG Base Excess mEq/L Barometric Pressure mm/Hg O2 Delivery Device Sodium (136-145) mmol/L Potassium (3.5-5.1) mmol/L Chloride (98-107) mmol/L Carbon Dioxide (21-32) mmol/L Anion Gap (3-11) BUN (7-18) mg/dl Creatinine (0.6-1.4) mg/dl Est Cr Clr Drug Dosing ml/min Est GFR ( Amer) ml/min Est GFR (Non-Af Amer) ml/min BUN/Creatinine Ratio (10-20) Glucose (70-99) mg/dl POC Glucose 106 H 84 53 L* (70-99) mg/dl Lactate (0.4-2.0) mmol/L Calcium (8.5-10.1) mg/dl Magnesium (1.8-2.4) mg/dl Total Bilirubin (0.2-1) mg/dl Direct Bilirubin (0-0.2) mg/dl AST (15-37) U/L ALT (12-78) U/L Alkaline Phosphatase (45-117) U/L Troponin I (0-0.045) ng/ml NT-Pro-B Natriuret Pep (0-1800) pg/ml Total Protein (6.4-8.2) gm/dl Albumin (3.4-5.0) gm/dl Procalcitonin (0-0.5) ng/ml 12/29/20 12/29/20 12/29/20 Range/Units 22:41 22:40 20:43 WBC (4.8-10.8) K/uL RBC (4.7-6.1) M/uL Hgb (14.0-18.0) g/dL Hct (42-52) % MCV (80-100) fL MCH (25-34) pg MCHC (32-36) g/dL RDW Std Deviation (36.4-46.3) fL RDW Coeff of [place] (11.5-14.5) % Plt Count (130-400) K/uL MPV (7.4-10.4) fL Immature Gran % (Auto) % Neut % (Auto) % Lymph % (Auto) % [place] % (Auto) % Eos % (Auto) % Baso % (Auto) % Neut # (Auto) (1.4-6.5) K/uL Lymph # (Auto) (1.2-3.4) K/uL [place] # (Auto) (0.11-0.59) K/uL Eos # (Auto) (0-0.5) K/uL Baso # (Auto) (0-0.2) K/uL Immature Gran # (Auto) (0.00-0.02) K/uL Sample Site POC pH (7.35-7.45) POC pCO2 (35-46) mmHg POC pO2 (80-95) mmHg POC HCO3 (19-24) humza/L POC Total CO2 (24-31) mmol/L POC Base Excess (-9-1.8) humza/L POC ABG O2 Sat (90-95) % Enrique Test VBG pH (7.36-7.41) VBG pCO2 (38-50) mmHg VBG pO2 mmHg VBG HCO3 mmol/L VBG O2 Saturation % VBG Base Excess mEq/L Barometric Pressure mm/Hg O2 Delivery Device Sodium (136-145) mmol/L Potassium (3.5-5.1) mmol/L Chloride (98-107) mmol/L Carbon Dioxide (21-32) mmol/L Anion Gap (3-11) BUN (7-18) mg/dl Creatinine (0.6-1.4) mg/dl Est Cr Clr Drug Dosing ml/min Est GFR ( Amer) ml/min Est GFR (Non-Af Amer) ml/min BUN/Creatinine Ratio (10-20) Glucose (70-99) mg/dl POC Glucose 50 L* 60 L* 129 H (70-99) mg/dl Lactate (0.4-2.0) mmol/L Calcium (8.5-10.1) mg/dl Magnesium (1.8-2.4) mg/dl Total Bilirubin (0.2-1) mg/dl Direct Bilirubin (0-0.2) mg/dl AST (15-37) U/L ALT (12-78) U/L Alkaline Phosphatase (45-117) U/L Troponin I (0-0.045) ng/ml NT-Pro-B Natriuret Pep (0-1800) pg/ml Total Protein (6.4-8.2) gm/dl Albumin (3.4-5.0) gm/dl Procalcitonin (0-0.5) ng/ml 12/29/20 12/29/20 12/29/20 Range/Units 16:18 15:11 11:49 WBC (4.8-10.8) K/uL RBC (4.7-6.1) M/uL Hgb (14.0-18.0) g/dL Hct (42-52) % MCV (80-100) fL MCH (25-34) pg MCHC (32-36) g/dL RDW Std Deviation (36.4-46.3) fL RDW Coeff of [place] (11.5-14.5) % Plt Count (130-400) K/uL MPV (7.4-10.4) fL Immature Gran % (Auto) % Neut % (Auto) % Lymph % (Auto) % [place] % (Auto) % Eos % (Auto) % Baso % (Auto) % Neut # (Auto) (1.4-6.5) K/uL Lymph # (Auto) (1.2-3.4) K/uL [place] # (Auto) (0.11-0.59) K/uL Eos # (Auto) (0-0.5) K/uL Baso # (Auto) (0-0.2) K/uL Immature Gran # (Auto) (0.00-0.02) K/uL Sample Site POC pH (7.35-7.45) POC pCO2 (35-46) mmHg POC pO2 (80-95) mmHg POC HCO3 (19-24) humza/L POC Total CO2 (24-31) mmol/L POC Base Excess (-9-1.8) humza/L POC ABG O2 Sat (90-95) % Enrique Test VBG pH (7.36-7.41) VBG pCO2 (38-50) mmHg VBG pO2 mmHg VBG HCO3 mmol/L VBG O2 Saturation % VBG Base Excess mEq/L Barometric Pressure mm/Hg O2 Delivery Device Sodium (136-145) mmol/L Potassium (3.5-5.1) mmol/L Chloride (98-107) mmol/L Carbon Dioxide (21-32) mmol/L Anion Gap (3-11) BUN (7-18) mg/dl Creatinine (0.6-1.4) mg/dl Est Cr Clr Drug Dosing ml/min Est GFR ( Amer) ml/min Est GFR (Non-Af Amer) ml/min BUN/Creatinine Ratio (10-20) Glucose (70-99) mg/dl POC Glucose 297 H 259 H 367 H* (70-99) mg/dl Lactate (0.4-2.0) mmol/L Calcium (8.5-10.1) mg/dl Magnesium (1.8-2.4) mg/dl Total Bilirubin (0.2-1) mg/dl Direct Bilirubin (0-0.2) mg/dl AST (15-37) U/L ALT (12-78) U/L Alkaline Phosphatase (45-117) U/L Troponin I (0-0.045) ng/ml NT-Pro-B Natriuret Pep (0-1800) pg/ml Total Protein (6.4-8.2) gm/dl Albumin (3.4-5.0) gm/dl Procalcitonin (0-0.5) ng/ml 12/29/20 Range/Units 11:49 WBC (4.8-10.8) K/uL RBC (4.7-6.1) M/uL Hgb (14.0-18.0) g/dL Hct (42-52) % MCV (80-100) fL MCH (25-34) pg MCHC (32-36) g/dL RDW Std Deviation (36.4-46.3) fL RDW Coeff of [place] (11.5-14.5) % Plt Count (130-400) K/uL MPV (7.4-10.4) fL Immature Gran % (Auto) % Neut % (Auto) % Lymph % (Auto) % [place] % (Auto) % Eos % (Auto) % Baso % (Auto) % Neut # (Auto) (1.4-6.5) K/uL Lymph # (Auto) (1.2-3.4) K/uL [place] # (Auto) (0.11-0.59) K/uL Eos # (Auto) (0-0.5) K/uL Baso # (Auto) (0-0.2) K/uL Immature Gran # (Auto) (0.00-0.02) K/uL Sample Site POC pH (7.35-7.45) POC pCO2 (35-46) mmHg POC pO2 (80-95) mmHg POC HCO3 (19-24) humza/L POC Total CO2 (24-31) mmol/L POC Base Excess (-9-1.8) humza/L POC ABG O2 Sat (90-95) % Enrique Test VBG pH (7.36-7.41) VBG pCO2 (38-50) mmHg VBG pO2 mmHg VBG HCO3 mmol/L VBG O2 Saturation % VBG Base Excess mEq/L Barometric Pressure mm/Hg O2 Delivery Device Sodium (136-145) mmol/L Potassium (3.5-5.1) mmol/L Chloride (98-107) mmol/L Carbon Dioxide (21-32) mmol/L Anion Gap (3-11) BUN (7-18) mg/dl Creatinine (0.6-1.4) mg/dl Est Cr Clr Drug Dosing ml/min Est GFR ( Amer) ml/min Est GFR (Non-Af Amer) ml/min BUN/Creatinine Ratio (10-20) Glucose (70-99) mg/dl POC Glucose 369 H* (70-99) mg/dl Lactate (0.4-2.0) mmol/L Calcium (8.5-10.1) mg/dl Magnesium (1.8-2.4) mg/dl Total Bilirubin (0.2-1) mg/dl Direct Bilirubin (0-0.2) mg/dl AST (15-37) U/L ALT (12-78) U/L Alkaline Phosphatase (45-117) U/L Troponin I (0-0.045) ng/ml NT-Pro-B Natriuret Pep (0-1800) pg/ml Total Protein (6.4-8.2) gm/dl Albumin (3.4-5.0) gm/dl Procalcitonin (0-0.5) ng/ml Coding Level of Care Code Critical Care 1st 30-74 mins Diagnoses Acute and chronic respiratory failure with hypoxia J96.21
[2020-12-30] MEDS: DEXMEDETOMIDINE HCL 200 MCG in SODIUM CHLORIDE 0.9% 48 ML IV SCH ×3 (11:51→21:14)
[2020-12-30] MEDS: guaiFENesin 600 MG TABCR PO SCH (12:10)
--- NOTE | 2020-12-30 12:24 | Cardiology Consultation ---
Date of Consultation December 30, 2020 Assessment & Plan (1) Acute and chronic respiratory failure with hypoxia: -reason for deterioration last evening not certain. -management per ICU team. (2) Hypertrophic cardiomyopathy: -minimal gradient on prior echocardiogram. -current study will be reported later today. (3) PAF (paroxysmal atrial fibrillation): -remains in sinus rhythm on amiodarone. -was stable on Xarelto as an outpatient. (4) HTN (hypertension): -adequate control on current regimen. History of Present Illness Attending Physician: Vance Natarajan MD History of Present Illness Mr. Benjamin is an 89-year-old male admitted on the 28 of December with hyperglycemia and possible pneumonia. The patient decompensated last evening and therefore, this consultation was ordered. Of note, the patient follows with Dr. Rivera in the outpatient setting. The history is obtained from Dr. Natarajan and the hospital record. The patient was fine during this hospitalization to the evening of December 29. He developed acute on chronic respiratory failure with profound hypoxia. He was transferred to the intensive care unit and intubated by Dr. Pham. There was concern over his EKG, however, this likely showed left ventricle hypertrophy with repolarization changes and was unchanged from a prior tracing. Bedside echocardiogram noted normal left ventricular systolic function without wall motion abnormalities. There is significant left ventricular hypertrophy. The patient does carry a history of a mild hypertrophic obstructive cardiomyopathy. Currently, patient is resting comfortably in bed, but intubated. No signs of distress. Past medical and surgical history 1. Paroxysmal atrial fibrillation 2. Hypertrophic obstructive cardiomyopathy-mean gradient of 10 mmHg February 2017 3. Hypertension 4. Hypercholesterolemia 5. COPD 6. Diabetes mellitus 7. Hypothyroidism 8. BPH 9. Osteoporosis 10. Glaucoma 11. History of lung carcinoma-status post left lower lobectomy, 2012 12. Ulcerative colitis 13. History of colonic carcinoma 14. Colectomy with ileostomy -36 years ago Social history and lives with his No tobacco alcohol Family history Noncontributory Review of systems Unobtainable Allergies Allergy/AdvReac Type Severity Reaction Status Date / Time atorvastatin AdvReac Intermediate leg pain Verified 12/28/20 02:02 Home Medications Medication Instructions Recorded Confirmed Type cholecalciferol (vitamin D3) 1,000 unit PO BID 07/16/18 12/28/20 History [Vitamin D3] ipratropium-albuterol 3 ml INHALATION Q4 PRN 07/16/18 12/28/20 History lancets 33 gauge #100 ea 02/08/19 12/25/20 History vit C 250 mg-vit E 90 mg-zinc 40 1 tab PO QAM 02/08/19 12/28/20 History mg-copper 1 ni-nuluzf-uemclb capsule Calcium 600 + D(3) 1 cap PO QPM 09/01/19 12/28/20 History acetaminophen 325 mg capsule 650 mg PO Q4H PRN cap 10/13/19 12/28/20 History ostomy supplies #10 ea 11/12/19 12/25/20 Rx ostomy supplies #2 box 11/12/19 12/25/20 Rx rivaroxaban 20 mg tablet 20 mg PO QPM #90 tab 03/24/20 12/28/20 Rx insulin aspart U-100 100 unit/mL See Rx Instructions SQ TID #1 box 05/25/20 12/28/20 Rx (3 mL) subcutaneous pen MDD 17 units a day levothyroxine 50 mcg tablet 50 mcg PO QAM #90 tab 06/22/20 12/28/20 Rx albuterol sulfate 90 mcg/actuation 2 puff INHALATION Q4 PRN #18 g 09/15/20 12/28/20 Rx aerosol inhaler rosuvastatin 5 mg tablet 5 mg PO QPM #90 tab 11/21/20 12/28/20 Rx OneTouch Ultra Blue Test Strip #400 ea NS 12/06/20 12/25/20 Rx pen needle, diabetic 32 gauge x #100 ea 12/06/20 12/25/20 Rx 5/32" insulin syringe-needle U-100 1 mL #200 ea 12/21/20 12/25/20 Rx 31 gauge x 5/16" amoxicillin 875 mg-potassium 1 tab PO BID #20 tab 12/25/20 12/28/20 Rx clavulanate 125 mg tablet amiodarone 200 mg tablet 200 mg PO 1700 #90 tab 12/28/20 Rx donepezil [Aricept] 5 mg PO QAM 12/28/20 12/28/20 History finasteride [Proscar] 5 mg PO QAM 12/28/20 12/28/20 History insulin asp prt-insulin aspart 36 unit SUBCUT BID 12/28/20 12/28/20 History [Novolog Mix 70-30 U-100 Insuln] Patient History Medical History (Updated 12/30/20 @ 12:33 by Kendall Goncalves MD) Carcinoma of lower lobe, 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) Cerumen impaction Chronic a-fib Controlled and stable Chronic back pain 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 - no issues - does not follow with specialist- stable Colon cancer S/p colectomy- has iliostomy- no chemo or XRT Glaucoma Hypertrophic cardiomyopathy mean gradient of 10mmHg on echo from 03/06 Lumbar stenosis Lung cancer s/p lobectomy - LLL- no chemo or XRT Osteoarthritis Pancreatitis ~20 years ago Renal cyst Ulcerative colitis hx Vitamin D deficiency Surgical History History of adenoidectomy History of appendectomy History of bronchoscopy History of cataract surgery bilateral History of colectomy History of colonoscopy History of colostomy History of ERCP History of herniorrhaphy around stoma History of lobectomy of lung (05/06/12) left lower lobe History of lung surgery History of partial pancreatectomy [facility] (Dr Escobar) ~20 years ago History of tonsillectomy S/P epidural steroid injection Family History Mother Diabetes Heart disease Myocardial infarction Hypertension Irritable bowel syndrome (IBS) Father Irritable bowel syndrome (IBS) Sister Heart disease Brother Heart disease Other Crohn's disease Kidney disease No family history of adverse response to anesthesia Denies family history of Ovarian cancer Prostate cancer Breast cancer Colorectal cancer Social History Smoking Status: Former smoker Second Hand Exposure: Yes (hx); Hx Alcohol Use: Yes Alcohol type: hard liquor Alcohol Intake Frequency Comment: 1 every couple days Hx Substance Use: No Preferred Language: Cambodian Communication Ability: Effective Visual Impairment: No Limitations Map Compiler Required: No Beliefs That Will Affect Care: None marital status: Current Living Situation: Spouse Current Living Situation Comment: House current occupational status: retired Feels Safe at Home: No Is there a partner from a previous relationship who is making you feel unsafe now?: No Dental Care, Regularly: Yes Seatbelt Use: always Assistive Devices: Walker Physical Exam Physical Exam: In general it is a well-developed well-nourished elderly white male lying supine in bed. HEENT exam notes an endotracheal tube in place. Neck is supple with full carotid upstrokes no obvious bruits. Jugular venous pressure cannot be assessed. Cardiovascular exam reveals a regular rhythm with distant heart sounds. No obvious murmurs. No S3. Lungs note coarse breath sounds throughout. Abdomen is soft and nontender without bruits. Ileostomy noted no right lower quadrant. Extremities note intact radial artery pulses bilaterally. There is no peripheral edema. Results & Data ([facility]) Vital Signs (Past 12 Hours) Vital Signs Pulse Pulse Pulse Resp Pulse Ox 12/30/20 10:36 93 H 22 94 12/30/20 07:40 86 25 H 92 12/30/20 07:09 90 28 H 90 12/30/20 07:07 90 28 H 88 L 12/30/20 03:09 63 20 94 12/30/20 03:05 24 89 L 12/30/20 02:55 24 84 L 12/30/20 00:33 61 20 93 Laboratory Results CBC notes hemoglobin of 15.3, hematocrit 44.5, white count 11.9, and platelet count of 054200. Electrolytes note a sodium of 107, bicarb 29, BUN 18, creatinine 1.02, and glucose of 137. At 0.015 with a follow-up value this morning of 0.026. BNP is mildly elevated at 1972. Diagnostic Findings EKG notes sinus rhythm with a left axis deviation and left ventricular hypertrophy with repolarization changes. PG Care Time/CCT Total # of Minutes Spent Total Time Spent with Patient: Total time spent is greater than 50% in coordination of care (as documented) at patient's floor/unit and/or counseling patient: Coding Level of Care Code 81189 Initial Inpt Care Lvl 3 Diagnoses Acute and chronic respiratory failure with hypoxia J96.21 Hypertrophic cardiomyopathy I42.2 PAF (paroxysmal atrial fibrillation) I48.0 HTN (hypertension) I10
[2020-12-30 13:11] LABS: Bordetella parapertussis PCR Not Detected (NotDetected); Bordetella pertussis PCR Not Detected (NotDetected); Chlamydia pneumoniae PCR Not Detected (NotDetected); Coronavirus 229E PCR Not Detected (NotDetected); Coronavirus CoV-2 (COVID19)PCR Not Detected (NotDetected); Coronavirus HKU1 PCR Not Detected (NotDetected); Coronavirus NL63 PCR Not Detected (NotDetected); Coronavirus OC43PCR Not Detected (NotDetected); Human Metapneumovirus PCR Not Detected (NotDetected); Influenza A PCR Not Detected (NotDetected); Influenza B PCR Not Detected (NotDetected); Mycoplasma pneumoniae PCR Not Detected (NotDetected); Parainfluenza Virus 1 PCR Not Detected (NotDetected); Parainfluenza Virus 2 PCR Not Detected (NotDetected); Parainfluenza Virus 3 PCR Not Detected (NotDetected); Parainfluenza Virus 4 PCR Not Detected (NotDetected); Respiratory Syncytial VirusPCR Not Detected (NotDetected); Rhinovirus/Enterovirus PCR DETECTED (NotDetected)
[2020-12-30 13:31] LABS: Adenovirus PCR Not Detected (NotDetected)
[2020-12-30 13:44] LABS: iSTAT Allen Test Pass; iSTAT Art Bld Gas pCO2 Correct 33 mmHg (35-46); iSTAT Art Bld Gas pH Corrected 7.415 (7.35-7.45); iSTAT Arterial Blood Gas HCO3 21 meg/L (19-24); iSTAT Arterial Blood Gas pCO2 33 mmHg (35-46); iSTAT Arterial Blood Gas pH 7.42 (7.35-7.45); iSTAT Arterial Blood Gas pO2 < 32 mmHg (80-95); iSTAT Arterial Blood Gas pO2 C 29; iSTAT Carbon Dioxide 22 mmol/L (24-31); iSTAT FiO2 100 %; iSTAT Hematocrit 47 % (42-52); iSTAT Potassium 4.2 mmol/L (3.3-5.0); iSTAT Site L Radial; iSTAT Sodium 136 mmol/L (135-144)
[2020-12-30] MEDS ORDERED: NORMOSOL-R 1,000 ML IV ONE (13:48)
[2020-12-30] MEDS: NOREPINEPHRINE/D5W 8 MG/508 ML BAG IV SCH ×2 (14:00→19:23)
[2020-12-30 14:20] LABS: Hematocrit (blood only) 43.2 % (42-52)
[2020-12-30 14:21] LABS: iSTAT Allen Test Pass; iSTAT Arterial Blood Gas HCO3 20 meg/L (19-24); iSTAT Arterial Blood Gas pCO2 33 mmHg (35-46); iSTAT Arterial Blood Gas pH 7.39 (7.35-7.45); iSTAT Arterial Blood Gas pO2 65 mmHg (80-95); iSTAT Carbon Dioxide 21 mmol/L (24-31); iSTAT FiO2 80 %; iSTAT Site R Radial
[2020-12-30 14:34] LABS: BUN Creatinine Ratio 16.8 (10-20); Calcium 8.1 mg/dl (8.5-10.1); Creatinine Clr Calc Pharmacy 43.9 ml/min; Est GFR (African American) 65.7 ml/min; Est GFR (Non-African American) 56.7 ml/min; Potassium 3.8 mmol/L (3.5-5.1)
[2020-12-30 14:38] LABS: Troponin I 0.037 ng/ml (0-0.045)
[2020-12-30] MEDS: methylPREDNISolone 40 MG in SYRINGE 0 ML IV SCH ×2 (14:40→23:17)
--- NOTE | 2020-12-30 14:51 | XCELERA ---
[id number]
--- NOTE | 2020-12-30 15:08 | Electrocardiogram Report ---
Test Reason : Blood Pressure : / mmHG Vent. Rate : 065 BPM Atrial Rate : 065 BPM P-R Int : 184 ms QRS Dur : 104 ms QT Int : 450 ms P-R-T Axes : 105 -25 115 degrees QTc Int : 468 ms Normal sinus rhythm Left ventricular hypertrophy with repolarization abnormality Prolonged QT Abnormal ECG When compared with ECG of 08-DEC-2019 05:44, WI interval has decreased Confirmed by Kendall Goncalves ([id number]) on 12/30/2020 3:07:44 PM Referred By: Bryanna Orr Confirmed By:Kendall Goncalves
[2020-12-30] MEDS ORDERED: OPTIRAY 350 500ml IV ONE (15:38)
--- NOTE | 2020-12-30 16:01 | CT Scan Report ---
CT ANGIOGRAM OF THE CHEST CLINICAL HISTORY: Respiratory failure. Shortness of breath. Possible acute pulmonary embolism. COMPARISON STUDY: Noncontrast CT scan of chest dated 12/08/2018 TECHNIQUE: Following the IV administration of 120 mL of Optiray, CT angiogram of the thorax was perfo rmed from the thoracic inlet to the lung bases utilizing the pulmonary embolus protocol. Images are r eviewed in the axial, sagittal, and coronal planes. IV contrast was administered without complication . MIP imaging was performed. A dose lowering technique was utilized adhering to the principles of AL ALIA. CT DOSE: 622.15 mGy.cm FINDINGS: No pathologically enlarged axillary mediastinal or hilar lymph nodes were visualized. There are calci fied mediastinal lymph nodes, likely secondary to a prior granulomatous infection. The heart is enlar ged. There are coronary artery calcifications. There is an endotracheal tube positioned 3 cm above th e iwona. There is an enteric tube which passes into the stomach. There is an 10.8 cm upper pole left renal cyst. There is mild ectasia of descending thoracic aorta which measures 37 mm. There were no pulmonary artery filling defects to indicate acute pulmonary embolism. There are small bilateral pleural effusions There are postsurgical changes of a left lower lobectomy. There is right lower lobe bronchial wall th ickening and mucous plugging. There is narrowing of the left upper lobe bronchus. There is a small fi lling defect within the proximal left upper lobe bronchus likely representing mucoid debris There is left upper lobe bronchial wall thickening and mucous plugging. There is an area of consolidation with in the left upper lobe posterior base. IMPRESSION: 1. No evidence of acute pulmonary embolism 2. Small bilateral pleural effusions 3. Evidence for old granulomatous disease 4. Right lower lobe bronchial wall thickening and mucous plugging 5. Narrowing of the left upper lobe bronchus. Left upper lobe bronchial wall thickening and mucous pl ugging. Consolidative changes involving the posterior aspect of the left upper lobe. Small filling de fect within the proximal left upper lobe bronchus likely representing mucoid debris 6. Increasing left hilar soft tissue, possibly inflammatory. A central neoplasm cannot be excluded, a nd if symptoms persist bronchoscopic evaluation could be considered. ACT 112: Negative or not required by law. Electronically signed by: Sukhwinder Márquez M.D. 12/30/2020 4:00 PM
[2020-12-30] MEDS: AMIODARONE 200 MG TAB PO SCH (16:51)
--- NOTE | 2020-12-30 16:54 | Hospitalist Progress Note ---
Date of Service December 30, 2020 Assessment & Plan (1) Acute respiratory failure with hypoxemia: Occurred on 12/30 with increasing O2 demands overnight. Ddx includes worsening pneumonia (which I had stopped abx yesterday for lack of signs/symptoms of pneumonia) vs. mucus plug (which is indicated on CTA). PE ruled out. CHF unlikely given stable weight and stable BNP from yesterday (though elevated). - Intubated the morning of 12/30 by ICU physician. - Ventilator settings per ICU (2) Pneumonia: Reported cough at home, but no fevers. Breathing at baseline. CXRs have all shown atelectasis. No fever here. Leukocytosis on admission; now resolved, though was on steroids. Procalcitonin was 0.16. - As above (3) Hyperglycemia: Due to steroid use. Usual blood sugars range from 200 - 300 per . Over 500 at home prior to admission. - Slowly improving at first, then jumped up to >300 again today. - Discussed with pharmacist; adjusting NPH order. Back on steroids, so will need to monitor closely. (4) Diabetes type 2, uncontrolled: A1c was 8.8% this admission. Given age, A1c goal is ~8.0% per pharmacy. - As above (5) Hypothyroidism: TSH was 4.0 in 04/2020. No signs/symptoms of hypo-/hyperthyroidism. - Continue home Synthroid 50 mcg (6) Chronic a-fib: Stable and well-controlled. - Continue amiodarone - Continue rivaroxaban (7) COPD (chronic obstructive pulmonary disease): Possible COPD exacerbation is what kicked this all off with oral steroids. - Breathing at baseline per patient on 12/29. Acute respiratory failure on 12/30. (8) DVT prophylaxis: On rivaroxaban for afib Admission and Anticipated Discharge Date Admission Date: December 28, 2020 Subjective Was very short of breath this morning. Overnight had had started to require more oxygen. In the morning, he could barely speak. Confirmed code status as full code. Reports no fevers/chills, chest pain, shortness of breath, abdominal pain, nausea, or vomiting. Physical Exam Constitutional: + acute distress Eyes: EOM intact bilaterally; no conjunctival abnormality ENMT: external ear and nose normal, oropharynx normal Neck: trachea midline, no thyromegaly normal visual inspection Respiratory: + respiratory distress and + labored breathing Auscultation: + diminished lung sounds, + rales and + rhonchi Cardiovascular: RRR, no murmur, no edema Gastrointestinal (Abdomen): Inspection/Auscultation: abdomen normal to inspection; abdomen not distended Musculoskeletal: no cyanosis or clubbing, extremities motor strength 5/5 Skin: no rashes, warm and dry Neurologic: moves all extremities and awake Psychiatric: Orientation: alert, oriented to person and cooperative Results & Data Results & Data ([facility]) Vital Signs (Past 12 Hours) Vital Signs Temp Pulse Pulse Resp BP Pulse Ox 12/30/20 16:00 60 20 95 12/30/20 15:30 72 95 12/30/20 15:20 36.8 C 71 162/83 H 93 12/30/20 15:16 36.8 C 71 95 12/30/20 15:15 36.9 C 69 165/85 H 96 12/30/20 15:10 36.9 C 68 161/89 H 95 12/30/20 15:05 37.0 C 64 154/86 H 98 12/30/20 15:00 37.0 C 65 134/83 100 12/30/20 14:56 37.1 C 61 101/64 98 12/30/20 14:50 37.1 C 64 158/90 H 98 12/30/20 14:45 37.1 C 62 166/93 H 98 12/30/20 14:40 37.2 C 62 20 169/96 H 97 12/30/20 14:35 37.2 C 62 173/99 H 95 12/30/20 14:31 37.2 C 63 95 12/30/20 14:30 37.2 C 62 193/107 H 95 12/30/20 14:29 37.2 C 68 197/108 H 95 12/30/20 14:25 37.2 C 56 L 159/89 H 94 12/30/20 14:21 37.2 C 55 L 67/53 L 91 12/30/20 14:15 37.2 C 56 L 134/80 91 12/30/20 14:12 37.3 C 57 L 175/103 H 94 12/30/20 14:07 37.2 C 58 L 115/79 92 12/30/20 14:05 37.2 C 56 L 78/59 L 91 12/30/20 14:02 37.2 C 56 L 70/52 L 93 12/30/20 14:01 37.2 C 61 92 12/30/20 14:00 37.2 C 56 L 93/64 L 92 12/30/20 13:57 37.2 C 55 L 128/78 93 12/30/20 13:55 37.2 C 55 L 58/48 L 94 12/30/20 13:50 37.2 C 54 L 50/41 L 91 12/30/20 13:45 37.1 C 65 88 L 12/30/20 13:44 37.1 C 68 66/49 L 89 L 12/30/20 13:31 37.1 C 85 92 12/30/20 13:30 37.1 C 87 152/98 H 91 12/30/20 13:15 37.0 C 89 156/99 H 93 12/30/20 13:05 36.9 C 102 H 183/140 H 97 12/30/20 13:00 36.9 C 97 H 92 12/30/20 12:46 36.9 C 94 H 169/98 H 97 12/30/20 12:45 36.9 C 93 H 97 12/30/20 12:31 36.8 C 95 H 184/107 H 98 12/30/20 12:30 36.8 C 97 H 98 12/30/20 12:23 36.7 C 95 H 195/106 H 96 12/30/20 12:15 36.7 C 96 H 97 12/30/20 12:10 36.7 C 96 H 188/105 H 97 12/30/20 12:06 36.6 C 99 H 200/113 H 96 12/30/20 12:00 99 H 92 12/30/20 11:57 96 H 200/121 H 91 12/30/20 11:55 96 H 215/122 H 90 12/30/20 11:52 97 H 201/118 H 92 12/30/20 11:51 101 H 183/115 H 94 12/30/20 11:49 94 H 190/113 H 94 12/30/20 11:45 92 H 96 12/30/20 11:43 91 H 190/109 H 94 12/30/20 10:36 93 H 22 94 12/30/20 07:40 86 25 H 92 12/30/20 07:09 90 28 H 90 12/30/20 07:07 90 28 H 88 L PG Care Time/CCT Total # of Minutes Spent Total Time Spent with Patient: Total time spent is greater than 50% in coordination of care (as documented) at patient's floor/unit and/or counseling patient: Coding Level of Care Code 71260 Subseq Hosp Care Lvl 3 Diagnoses Acute respiratory failure with hypoxemia J96.01 Pneumonia J18.9 Laterality: right Lung location: lower lobe of lung Pneumonia type: due to unspecified organism Hyperglycemia R73.9 Diabetes type 2, uncontrolled E11.65 Hypothyroidism E03.9 Hypothyroidism type: unspecified Chronic a-fib I48.2 COPD (chronic obstructive pulmonary disease) J44.0 COPD type: COPD with acute lower respiratory infection DVT prophylaxis Z29.9 (1) Pneumonia Laterality: right Lung location: lower lobe of lung Pneumonia type: due to unspecified organism Qualified Code(s): J18.9 - Pneumonia, unspecified organism (2) Hypothyroidism Hypothyroidism type: unspecified Qualified Code(s): E03.9 - Hypothyroidism, unspecified (3) COPD (chronic obstructive pulmonary disease) COPD type: COPD with acute lower respiratory infection Qualified Code(s): J44.0 - Chronic obstructive pulmonary disease with (acute) lower respiratory infection
[2020-12-30] MEDS: fentaNYL citrate 100 MCG/2 ML VIAL IV PRN ×3 (20:05→23:17)
[2020-12-30] MEDS: ROSUVASTATIN CALCIUM 5 MG TAB PO SCH (21:33)
[2020-12-30] MEDS: RIVAROXABAN 20 MG TAB PO SCH (21:33)
[2020-12-30] MEDS: ACETAMINOPHEN 325 MG TAB PO PRN (21:37)
[2020-12-31] MEDS: ACETAMINOPHEN 325 MG TAB PO PRN (01:21)
[2020-12-31] MEDS: fentaNYL citrate 100 MCG/2 ML VIAL IV PRN ×8 (01:21→22:21)
[2020-12-31] MEDS: AMPICILLIN/SULBACTAM SOD 3,000 MG in 0.9 % SODIUM CHLORIDE 100 ML IV SCH ×4 (01:22→19:49)
[2020-12-31] MEDS: DEXMEDETOMIDINE HCL 200 MCG in SODIUM CHLORIDE 0.9% 48 ML IV SCH (03:04)
[2020-12-31] MEDS: NOREPINEPHRINE/D5W 8 MG/508 ML BAG IV SCH ×3 (03:10→15:17)
[2020-12-31] MEDS: INSULIN ASPART 100 UNITS/ML 3 ML PEN SC SCH ×6 (04:58→20:37)
[2020-12-31 05:42] LABS: Hematocrit (blood only) 47.9 % (42-52); Hemoglobin 16.7 g/dL (14.0-18.0); Mean Corpuscular Hemoglobin 29.7 pg (25-34); Mean Corpuscular Hgb Conc 34.9 g/dL (32-36); Mean Corpuscular Volume 85.1 fL (80-100); Mean Platelet Volume 11.9 fL (7.4-10.4); Platelet Count 335 K/uL (130-400); RDW Coefficient of Variation 14.4 % (11.5-14.5); RDW Standard Deviation 44.4 fL (36.4-46.3); Red Blood Count 5.63 M/uL (4.7-6.1); White Blood Count 25.85 K/uL (4.8-10.8)
[2020-12-31 06:19] LABS: BUN Creatinine Ratio 17.4 (10-20); Calcium 8.8 mg/dl (8.5-10.1); Creatinine Clr Calc Pharmacy 43.9 ml/min; Est GFR (African American) 65.7 ml/min; Est GFR (Non-African American) 56.7 ml/min; Magnesium 2.2 mg/dl (1.8-2.4); Potassium 4.4 mmol/L (3.5-5.1)
[2020-12-31] MEDS: methylPREDNISolone 40 MG in SYRINGE 0 ML IV SCH ×3 (06:23→21:13)
[2020-12-31] MEDS: LEVOTHYROXINE SODIUM 50 MCG TABLET PO SCH (06:23)
[2020-12-31 06:26] LABS: Basophils # (auto) 0.03 K/uL (0-0.2); Basophils % (auto) 0.1 %; Echinocytes 1+; Eosinophils # (auto) 0.01 K/uL (0-0.5); Immature Granulocytes # (auto) 0.39 K/uL (0.00-0.02); Immature Granulocytes % (auto) 1.5 %; Lymphocytes # (auto) 0.92 K/uL (1.2-3.4); Lymphocytes % (auto) 3.6 %; Monocytes % (auto) 1.9 %; Neutrophils % (auto) 92.9 %; Toxic Vacuolation 1+
[2020-12-31 06:28] LABS: iSTAT Allen Test Pass; iSTAT Art Bld Gas pCO2 Correct 33 mmHg (35-46); iSTAT Art Bld Gas pH Corrected 7.413 (7.35-7.45); iSTAT Arterial Blood Gas HCO3 21 meg/L (19-24); iSTAT Arterial Blood Gas pCO2 32 mmHg (35-46); iSTAT Arterial Blood Gas pH 7.42 (7.35-7.45); iSTAT Arterial Blood Gas pO2 138 mmHg (80-95); iSTAT Arterial Blood Gas pO2 C 141; iSTAT Carbon Dioxide 22 mmol/L (24-31); iSTAT FiO2 60 %; iSTAT Hematocrit 49 % (42-52); iSTAT Hemoglobin 16.7 g/dl (14.0-18.0); iSTAT Potassium 4.4 mmol/L (3.3-5.0); iSTAT Site L Radial; iSTAT Sodium 130 mmol/L (135-144)
[2020-12-31] MEDS ORDERED: INSULIN GLARGINE SOLOSTAR 100 UNITS/ML 3 ML PEN SC ONE (07:45)
[2020-12-31] MEDS ORDERED: MIDAZOLAM HCL 1 MG/ML 2ML VIAL ONE (08:06)
--- NOTE | 2020-12-31 08:14 | Critical Care Progress Note ---
Date of Service December 31, 2020 Assessment & Plan (1) Acute and chronic respiratory failure with hypoxia: Reason Critically Ill: 89-year-old male with severe acute hypoxic respiratory failure PLAN: Neuro: Analgesia and sedation -Did not tolerate propofol and Precedex transition to push dose Versed and fentanyl Resp: COPD Acute hypoxic respiratory failure Acute COPD exacerbation -Continue nebs -Solu-Medrol 40 mg every 8 hours -Repeat Covid testing: Negative -Influenza negative -Rhinovirus positive CV: Atrial fibrillation: Rate controlled -On Xarelto Fluids/Renal: Maintenance fluids discontinued today as tube feeds to start -Start tube feeding -Peptamen VHP started 20 mL continuous per hour increasing to goal of 60 ID: Unasyn azithromycin: Day two -Appropriate coverage -Await sputum culture: Consider de-escalation to single agent azithromycin GI/Nutrition: Start tube feeding Heme: Long-term anticoagulation DVT prophylaxis: Xarelto Endocrine: ICU hyperglycemia protocol -Hyperglycemia secondary to steroids Vascular access: Peripheral IV, arterial line Code Status: Full code Disposition: ICU Admission and Anticipated Discharge Date Admission Date: December 28, 2020 Supervising Physician Co-Signing Physician Notes I have discussed the case with the bedside nurse I have updated the of the patient's condition I have personally spent 45 minutes of critical care time in the direct management of this patient. This is a life/limb threatening event. This includes time spent evaluating patient, direct bedside care, chart review, placing orders, interpretation of diagnostic studies, discussion with consultants, patient, and/or family members regarding treatment decisions, as well as other required patient management activities. This time is exclusive of all separately billable procedures, and teaching time and separate from and in addition to any other critical care service time. Subjective Overnight became bradycardic on Precedex required discontinuation of Precedex has now failed propofol and Precedex for sedation Review of Systems Review of Systems: Unobtainable due to endotracheal tube Physical Exam Physical Exam: General: Alert. Skin: Warm, dry, Head: Atraumatic Ears, nose, mouth and throat: airway obscured by endotracheal tube Cardiovascular: Normal peripheral perfusion Respiratory: Ventilator settings reviewed Gastrointestinal: Non distended Musculoskeletal: No deformity Results & Data Results & Data ([facility]) Vital Signs (Past 12 Hours) Vital Signs Temp Pulse Resp BP Pulse Ox 12/31/20 07:50 90 22 93 12/31/20 06:31 37.4 C 57 L 105/85 93 12/31/20 06:30 37.4 C 58 L 89 L 12/31/20 06:15 37.4 C 55 L 116/74 96 12/31/20 06:00 37.5 C 54 L 126/70 96 12/31/20 05:46 37.6 C H 50 L 124/70 96 12/31/20 05:30 37.6 C H 50 L 140/79 96 12/31/20 05:26 37.7 C H 49 L 145/80 H 98 12/31/20 05:20 37.7 C H 45 L 88/53 L 97 12/31/20 05:17 37.7 C H 45 L 79/53 L 96 12/31/20 05:16 37.7 C H 47 L 72/50 L 96 12/31/20 05:15 37.7 C H 46 L 94 12/31/20 05:00 37.7 C H 52 L 96/61 L 94 12/31/20 04:46 37.8 C H 59 L 85/72 L 96 12/31/20 04:45 37.8 C H 91 12/31/20 04:31 37.9 C H 58 L 105/75 86 L 12/31/20 04:30 37.9 C H 64 84 L 12/31/20 04:16 38.0 C H 50 L 104/66 95 12/31/20 04:15 38.0 C H 50 L 12/31/20 04:00 38.1 C H 49 L 118/66 95 12/31/20 03:51 49 L 20 96 12/31/20 03:45 38.1 C H 50 L 114/66 95 12/31/20 03:31 38.1 C H 49 L 115/77 96 12/31/20 03:30 38.1 C H 49 L 95 12/31/20 03:17 38.2 C H 50 L 95 12/31/20 03:16 38.2 C H 51 L 119/69 95 12/31/20 03:15 38.2 C H 49 L 12/31/20 03:01 38.2 C H 52 L 133/63 94 12/31/20 03:00 38.2 C H 50 L 95 12/31/20 02:45 38.2 C H 52 L 109/61 95 12/31/20 02:30 38.2 C H 52 L 109/65 96 12/31/20 02:16 38.2 C H 52 L 111/64 94 12/31/20 02:15 38.2 C H 51 L 12/31/20 02:00 38.3 C H 52 L 139/71 96 12/31/20 01:45 38.3 C H 52 L 137/70 95 12/31/20 01:30 38.3 C H 56 L 139/69 93 12/31/20 01:15 38.3 C H 54 L 145/74 H 95 12/31/20 01:00 38.3 C H 54 L 145/74 H 96 12/31/20 00:45 38.3 C H 55 L 133/91 95 12/31/20 00:30 38.3 C H 54 L 140/74 95 12/31/20 00:15 38.3 C H 54 L 146/73 H 95 12/31/20 00:00 38.3 C H 54 L 144/70 H 95 12/30/20 23:45 38.3 C H 53 L 146/79 H 95 12/30/20 23:30 38.3 C H 54 L 157/76 H 95 12/30/20 23:15 38.2 C H 53 L 132/72 95 12/30/20 23:14 54 L 20 95 12/30/20 23:00 38.2 C H 53 L 133/71 95 12/30/20 22:45 38.2 C H 57 L 135/72 95 12/30/20 22:30 38.1 C H 53 L 138/84 95 12/30/20 22:17 38.1 C H 54 L 96 12/30/20 22:16 38.1 C H 54 L 152/76 H 95 12/30/20 22:15 38.1 C H 54 L 95 12/30/20 22:00 38.0 C H 52 L 118/73 95 12/30/20 21:46 38.0 C H 55 L 108/70 95 12/30/20 21:45 38.0 C H 59 L 12/30/20 21:30 37.9 C H 53 L 134/66 95 12/30/20 21:21 37.9 C H 64 148/76 H 83 L 12/30/20 21:15 37.9 C H 72 77 L 12/30/20 21:00 37.8 C H 56 L 134/75 97 12/30/20 20:46 37.7 C H 58 L 94 12/30/20 20:45 37.7 C H 56 L 151/83 H 94 12/30/20 20:31 37.6 C H 58 L 130/82 94 12/30/20 20:30 37.6 C H 57 L 12/30/20 20:16 37.4 C 56 L 151/83 H 95 12/30/20 20:15 37.4 C 54 L 95 Laboratory Results 12/31/20 12/31/20 12/31/20 Range/Units 05:45 05:32 05:32 WBC 25.85 H D (4.8-10.8) K/uL RBC 5.63 (4.7-6.1) M/uL Hgb 16.7 (14.0-18.0) g/dL POC Hgb 16.7 (14.0-18.0) g/dl Hct 47.9 (42-52) % POC Hct 49 (42-52) % MCV 85.1 (80-100) fL MCH 29.7 (25-34) pg MCHC 34.9 (32-36) g/dL RDW Std Deviation 44.4 (36.4-46.3) fL RDW Coeff of [place] 14.4 (11.5-14.5) % Plt Count 335 (130-400) K/uL MPV 11.9 H (7.4-10.4) fL Immature Gran % (Auto) 1.5 % Neut % (Auto) 92.9 % Lymph % (Auto) 3.6 % [place] % (Auto) 1.9 % Eos % (Auto) 0.0 % Baso % (Auto) 0.1 % Neut # (Auto) 24.00 H (1.4-6.5) K/uL Lymph # (Auto) 0.92 L (1.2-3.4) K/uL [place] # (Auto) 0.50 (0.11-0.59) K/uL Eos # (Auto) 0.01 (0-0.5) K/uL Baso # (Auto) 0.03 (0-0.2) K/uL Immature Gran # (Auto) 0.39 H (0.00-0.02) K/uL Toxic Vacuolation 1+ Echinocytes 1+ Sample Site L Radial POC pH 7.42 (7.35-7.45) POC pCO2 32 L (35-46) mmHg POC pO2 138 H (80-95) mmHg POC HCO3 21 (19-24) humza/L POC Total CO2 22 L (24-31) mmol/L POC Base Excess -4.0 (-9-1.8) humza/L ABG pH (Temp Correct) 7.413 (7.35-7.45) ABG pCO2 (Temp Corrct 33 L (35-46) mmHg POC ABG pO2 at Pt Temp 141 POC ABG O2 Sat 99.0 H (90-95) % Enrique Test Pass O2 Delivery Device Ventilator POC O2 Rate 20 Minute Ventilation 9.6 POC FiO2 60 % Tidal Volume 480 PEEP 18 IPAP POC Sodium 130 L (135-144) mmol/L Sodium 133 L (136-145) mmol/L POC Potassium 4.4 (3.3-5.0) mmol/L Potassium 4.4 D (3.5-5.1) mmol/L Chloride 103 (98-107) mmol/L Carbon Dioxide 18 L (21-32) mmol/L Anion Gap 12.0 H (3-11) BUN 20 H (7-18) mg/dl Creatinine 1.14 (0.6-1.4) mg/dl Est Cr Clr Drug Dosing 43.9 ml/min Est GFR ( Amer) 65.7 ml/min Est GFR (Non-Af Amer) 56.7 ml/min BUN/Creatinine Ratio 17.4 (10-20) Glucose 296 H (70-99) mg/dl POC Glucose (70-99) mg/dl POC Glucose (other) (70-99) mg/dl Lactate (0.4-2.0) mmol/L Calcium 8.8 (8.5-10.1) mg/dl Phosphorus 3.0 (2.5-4.9) mg/dl Magnesium 2.2 (1.8-2.4) mg/dl Troponin I (0-0.045) ng/ml Nasal Screen MRSA (PCR) (Negative) Adenovirus (PCR) (NotDetected) B. pertussis DNA (PCR) (NotDetected) B.parapertussis DNA PCR (NotDetected) C. pneumoniae DNA (PCR) (NotDetected) Coronavirus OC43 (PCR) (NotDetected) Coronavirus HKU1 (PCR) (NotDetected) Coronavirus 229E (PCR) (NotDetected) COVID-19 Eval Order SARS-CoV-2 (PCR) (NotDetected) Coronavirus NL63 (PCR) (NotDetected) Human Metapneumovir PCR (NotDetected) Influenza Type A (PCR) (NotDetected) Influenza Type B (PCR) (NotDetected) Urine Legionella Ag M. pneumoniae (PCR) (NotDetected) Parainfluenza 1 (PCR) (NotDetected) Parainfluenza 2 (PCR) (NotDetected) Parainfluenza 3 (PCR) (NotDetected) Parainfluenza 4 (PCR) (NotDetected) RSV (PCR) (NotDetected) Entero/Rhino (PCR) (NotDetected) 12/31/20 12/30/20 12/30/20 Range/Units 04:59 23:25 21:09 WBC (4.8-10.8) K/uL RBC (4.7-6.1) M/uL Hgb (14.0-18.0) g/dL POC Hgb (14.0-18.0) g/dl Hct (42-52) % POC Hct (42-52) % MCV (80-100) fL MCH (25-34) pg MCHC (32-36) g/dL RDW Std Deviation (36.4-46.3) fL RDW Coeff of [place] (11.5-14.5) % Plt Count (130-400) K/uL MPV (7.4-10.4) fL Immature Gran % (Auto) % Neut % (Auto) % Lymph % (Auto) % [place] % (Auto) % Eos % (Auto) % Baso % (Auto) % Neut # (Auto) (1.4-6.5) K/uL Lymph # (Auto) (1.2-3.4) K/uL [place] # (Auto) (0.11-0.59) K/uL Eos # (Auto) (0-0.5) K/uL Baso # (Auto) (0-0.2) K/uL Immature Gran # (Auto) (0.00-0.02) K/uL Toxic Vacuolation Echinocytes Sample Site POC pH (7.35-7.45) POC pCO2 (35-46) mmHg POC pO2 (80-95) mmHg POC HCO3 (19-24) humza/L POC Total CO2 (24-31) mmol/L POC Base Excess (-9-1.8) humza/L ABG pH (Temp Correct) (7.35-7.45) ABG pCO2 (Temp Corrct (35-46) mmHg POC ABG pO2 at Pt Temp POC ABG O2 Sat (90-95) % Enrique Test O2 Delivery Device POC O2 Rate Minute Ventilation POC FiO2 % Tidal Volume PEEP IPAP POC Sodium (135-144) mmol/L Sodium (136-145) mmol/L POC Potassium (3.3-5.0) mmol/L Potassium (3.5-5.1) mmol/L Chloride (98-107) mmol/L Carbon Dioxide (21-32) mmol/L Anion Gap (3-11) BUN (7-18) mg/dl Creatinine (0.6-1.4) mg/dl Est Cr Clr Drug Dosing ml/min Est GFR ( Amer) ml/min Est GFR (Non-Af Amer) ml/min BUN/Creatinine Ratio (10-20) Glucose (70-99) mg/dl POC Glucose (70-99) mg/dl POC Glucose (other) 286 H 258 H 219 H (70-99) mg/dl Lactate (0.4-2.0) mmol/L Calcium (8.5-10.1) mg/dl Phosphorus (2.5-4.9) mg/dl Magnesium (1.8-2.4) mg/dl Troponin I (0-0.045) ng/ml Nasal Screen MRSA (PCR) (Negative) Adenovirus (PCR) (NotDetected) B. pertussis DNA (PCR) (NotDetected) B.parapertussis DNA PCR (NotDetected) C. pneumoniae DNA (PCR) (NotDetected) Coronavirus OC43 (PCR) (NotDetected) Coronavirus HKU1 (PCR) (NotDetected) Coronavirus 229E (PCR) (NotDetected) COVID-19 Eval Order SARS-CoV-2 (PCR) (NotDetected) Coronavirus NL63 (PCR) (NotDetected) Human Metapneumovir PCR (NotDetected) Influenza Type A (PCR) (NotDetected) Influenza Type B (PCR) (NotDetected) Urine Legionella Ag M. pneumoniae (PCR) (NotDetected) Parainfluenza 1 (PCR) (NotDetected) Parainfluenza 2 (PCR) (NotDetected) Parainfluenza 3 (PCR) (NotDetected) Parainfluenza 4 (PCR) (NotDetected) RSV (PCR) (NotDetected) Entero/Rhino (PCR) (NotDetected) 12/30/20 12/30/20 12/30/20 Range/Units 19:43 17:01 14:09 WBC (4.8-10.8) K/uL RBC (4.7-6.1) M/uL Hgb 15.0 (14.0-18.0) g/dL POC Hgb (14.0-18.0) g/dl Hct 43.2 (42-52) % POC Hct (42-52) % MCV (80-100) fL MCH (25-34) pg MCHC (32-36) g/dL RDW Std Deviation (36.4-46.3) fL RDW Coeff of [place] (11.5-14.5) % Plt Count (130-400) K/uL MPV (7.4-10.4) fL Immature Gran % (Auto) % Neut % (Auto) % Lymph % (Auto) % [place] % (Auto) % Eos % (Auto) % Baso % (Auto) % Neut # (Auto) (1.4-6.5) K/uL Lymph # (Auto) (1.2-3.4) K/uL [place] # (Auto) (0.11-0.59) K/uL Eos # (Auto) (0-0.5) K/uL Baso # (Auto) (0-0.2) K/uL Immature Gran # (Auto) (0.00-0.02) K/uL Toxic Vacuolation Echinocytes Sample Site POC pH (7.35-7.45) POC pCO2 (35-46) mmHg POC pO2 (80-95) mmHg POC HCO3 (19-24) humza/L POC Total CO2 (24-31) mmol/L POC Base Excess (-9-1.8) humza/L ABG pH (Temp Correct) (7.35-7.45) ABG pCO2 (Temp Corrct (35-46) mmHg POC ABG pO2 at Pt Temp POC ABG O2 Sat (90-95) % Enrique Test O2 Delivery Device POC O2 Rate Minute Ventilation POC FiO2 % Tidal Volume PEEP IPAP POC Sodium (135-144) mmol/L Sodium (136-145) mmol/L POC Potassium (3.3-5.0) mmol/L Potassium (3.5-5.1) mmol/L Chloride (98-107) mmol/L Carbon Dioxide (21-32) mmol/L Anion Gap (3-11) BUN (7-18) mg/dl Creatinine (0.6-1.4) mg/dl Est Cr Clr Drug Dosing ml/min Est GFR ( Amer) ml/min Est GFR (Non-Af Amer) ml/min BUN/Creatinine Ratio (10-20) Glucose (70-99) mg/dl POC Glucose (70-99) mg/dl POC Glucose (other) 193 H (70-99) mg/dl Lactate (0.4-2.0) mmol/L Calcium (8.5-10.1) mg/dl Phosphorus (2.5-4.9) mg/dl Magnesium (1.8-2.4) mg/dl Troponin I 0.033 (0-0.045) ng/ml Nasal Screen MRSA (PCR) (Negative) Adenovirus (PCR) (NotDetected) B. pertussis DNA (PCR) (NotDetected) B.parapertussis DNA PCR (NotDetected) C. pneumoniae DNA (PCR) (NotDetected) Coronavirus OC43 (PCR) (NotDetected) Coronavirus HKU1 (PCR) (NotDetected) Coronavirus 229E (PCR) (NotDetected) COVID-19 Eval Order SARS-CoV-2 (PCR) (NotDetected) Coronavirus NL63 (PCR) (NotDetected) Human Metapneumovir PCR (NotDetected) Influenza Type A (PCR) (NotDetected) Influenza Type B (PCR) (NotDetected) Urine Legionella Ag M. pneumoniae (PCR) (NotDetected) Parainfluenza 1 (PCR) (NotDetected) Parainfluenza 2 (PCR) (NotDetected) Parainfluenza 3 (PCR) (NotDetected) Parainfluenza 4 (PCR) (NotDetected) RSV (PCR) (NotDetected) Entero/Rhino (PCR) (NotDetected) 12/30/20 12/30/20 12/30/20 Range/Units 14:09 14:05 12:03 WBC (4.8-10.8) K/uL RBC (4.7-6.1) M/uL Hgb (14.0-18.0) g/dL POC Hgb (14.0-18.0) g/dl Hct (42-52) % POC Hct (42-52) % MCV (80-100) fL MCH (25-34) pg MCHC (32-36) g/dL RDW Std Deviation (36.4-46.3) fL RDW Coeff of [place] (11.5-14.5) % Plt Count (130-400) K/uL MPV (7.4-10.4) fL Immature Gran % (Auto) % Neut % (Auto) % Lymph % (Auto) % [place] % (Auto) % Eos % (Auto) % Baso % (Auto) % Neut # (Auto) (1.4-6.5) K/uL Lymph # (Auto) (1.2-3.4) K/uL [place] # (Auto) (0.11-0.59) K/uL Eos # (Auto) (0-0.5) K/uL Baso # (Auto) (0-0.2) K/uL Immature Gran # (Auto) (0.00-0.02) K/uL Toxic Vacuolation Echinocytes Sample Site R Radial POC pH 7.39 (7.35-7.45) POC pCO2 33 L (35-46) mmHg POC pO2 65 L (80-95) mmHg POC HCO3 20 (19-24) humza/L POC Total CO2 21 L (24-31) mmol/L POC Base Excess -5.0 (-9-1.8) humza/L ABG pH (Temp Correct) (7.35-7.45) ABG pCO2 (Temp Corrct (35-46) mmHg POC ABG pO2 at Pt Temp POC ABG O2 Sat 93.0 (90-95) % Enrique Test Pass O2 Delivery Device Ventilator POC O2 Rate 20 Minute Ventilation 10.1 POC FiO2 80 % Tidal Volume 480 PEEP 18 IPAP POC Sodium (135-144) mmol/L Sodium 139 (136-145) mmol/L POC Potassium (3.3-5.0) mmol/L Potassium 3.8 (3.5-5.1) mmol/L Chloride 107 (98-107) mmol/L Carbon Dioxide 26 (21-32) mmol/L Anion Gap 6.0 (3-11) BUN 19 H (7-18) mg/dl Creatinine 1.14 (0.6-1.4) mg/dl Est Cr Clr Drug Dosing 43.9 ml/min Est GFR ( Amer) 65.7 ml/min Est GFR (Non-Af Amer) 56.7 ml/min BUN/Creatinine Ratio 16.8 (10-20) Glucose 171 H (70-99) mg/dl POC Glucose 262 H (70-99) mg/dl POC Glucose (other) (70-99) mg/dl Lactate (0.4-2.0) mmol/L Calcium 8.1 L (8.5-10.1) mg/dl Phosphorus (2.5-4.9) mg/dl Magnesium (1.8-2.4) mg/dl Troponin I 0.037 (0-0.045) ng/ml Nasal Screen MRSA (PCR) (Negative) Adenovirus (PCR) (NotDetected) B. pertussis DNA (PCR) (NotDetected) B.parapertussis DNA PCR (NotDetected) C. pneumoniae DNA (PCR) (NotDetected) Coronavirus OC43 (PCR) (NotDetected) Coronavirus HKU1 (PCR) (NotDetected) Coronavirus 229E (PCR) (NotDetected) COVID-19 Eval Order SARS-CoV-2 (PCR) (NotDetected) Coronavirus NL63 (PCR) (NotDetected) Human Metapneumovir PCR (NotDetected) Influenza Type A (PCR) (NotDetected) Influenza Type B (PCR) (NotDetected) Urine Legionella Ag M. pneumoniae (PCR) (NotDetected) Parainfluenza 1 (PCR) (NotDetected) Parainfluenza 2 (PCR) (NotDetected) Parainfluenza 3 (PCR) (NotDetected) Parainfluenza 4 (PCR) (NotDetected) RSV (PCR) (NotDetected) Entero/Rhino (PCR) (NotDetected) 12/30/20 12/30/20 12/30/20 Range/Units 11:30 11:30 11:30 WBC (4.8-10.8) K/uL RBC (4.7-6.1) M/uL Hgb (14.0-18.0) g/dL POC Hgb (14.0-18.0) g/dl Hct (42-52) % POC Hct (42-52) % MCV (80-100) fL MCH (25-34) pg MCHC (32-36) g/dL RDW Std Deviation (36.4-46.3) fL RDW Coeff of [place] (11.5-14.5) % Plt Count (130-400) K/uL MPV (7.4-10.4) fL Immature Gran % (Auto) % Neut % (Auto) % Lymph % (Auto) % [place] % (Auto) % Eos % (Auto) % Baso % (Auto) % Neut # (Auto) (1.4-6.5) K/uL Lymph # (Auto) (1.2-3.4) K/uL [place] # (Auto) (0.11-0.59) K/uL Eos # (Auto) (0-0.5) K/uL Baso # (Auto) (0-0.2) K/uL Immature Gran # (Auto) (0.00-0.02) K/uL Toxic Vacuolation Echinocytes Sample Site POC pH (7.35-7.45) POC pCO2 (35-46) mmHg POC pO2 (80-95) mmHg POC HCO3 (19-24) humza/L POC Total CO2 (24-31) mmol/L POC Base Excess (-9-1.8) humza/L ABG pH (Temp Correct) (7.35-7.45) ABG pCO2 (Temp Corrct (35-46) mmHg POC ABG pO2 at Pt Temp POC ABG O2 Sat (90-95) % Enrique Test O2 Delivery Device POC O2 Rate Minute Ventilation POC FiO2 % Tidal Volume PEEP IPAP POC Sodium (135-144) mmol/L Sodium (136-145) mmol/L POC Potassium (3.3-5.0) mmol/L Potassium (3.5-5.1) mmol/L Chloride (98-107) mmol/L Carbon Dioxide (21-32) mmol/L Anion Gap (3-11) BUN (7-18) mg/dl Creatinine (0.6-1.4) mg/dl Est Cr Clr Drug Dosing ml/min Est GFR ( Amer) ml/min Est GFR (Non-Af Amer) ml/min BUN/Creatinine Ratio (10-20) Glucose (70-99) mg/dl POC Glucose (70-99) mg/dl POC Glucose (other) (70-99) mg/dl Lactate (0.4-2.0) mmol/L Calcium (8.5-10.1) mg/dl Phosphorus (2.5-4.9) mg/dl Magnesium (1.8-2.4) mg/dl Troponin I (0-0.045) ng/ml Nasal Screen MRSA (PCR) (Negative) Adenovirus (PCR) Not Detected (NotDetected) B. pertussis DNA (PCR) Not Detected (NotDetected) B.parapertussis DNA PCR Not Detected (NotDetected) C. pneumoniae DNA (PCR) Not Detected (NotDetected) Coronavirus OC43 (PCR) Not Detected (NotDetected) Coronavirus HKU1 (PCR) Not Detected (NotDetected) Coronavirus 229E (PCR) Not Detected (NotDetected) COVID-19 Eval Order [facility] at [facility] SARS-CoV-2 (PCR) Not Detected (NotDetected) Coronavirus NL63 (PCR) Not Detected (NotDetected) Human Metapneumovir PCR Not Detected (NotDetected) Influenza Type A (PCR) Not Detected (NotDetected) Influenza Type B (PCR) Not Detected (NotDetected) Urine Legionella Ag Pending M. pneumoniae (PCR) Not Detected (NotDetected) Parainfluenza 1 (PCR) Not Detected (NotDetected) Parainfluenza 2 (PCR) Not Detected (NotDetected) Parainfluenza 3 (PCR) Not Detected (NotDetected) Parainfluenza 4 (PCR) Not Detected (NotDetected) RSV (PCR) Not Detected (NotDetected) Entero/Rhino (PCR) DETECTED A* (NotDetected) 12/30/20 12/30/20 12/30/20 Range/Units 10:49 09:50 09:39 WBC (4.8-10.8) K/uL RBC (4.7-6.1) M/uL Hgb (14.0-18.0) g/dL POC Hgb (14.0-18.0) g/dl Hct (42-52) % POC Hct (42-52) % MCV (80-100) fL MCH (25-34) pg MCHC (32-36) g/dL RDW Std Deviation (36.4-46.3) fL RDW Coeff of [place] (11.5-14.5) % Plt Count (130-400) K/uL MPV (7.4-10.4) fL Immature Gran % (Auto) % Neut % (Auto) % Lymph % (Auto) % [place] % (Auto) % Eos % (Auto) % Baso % (Auto) % Neut # (Auto) (1.4-6.5) K/uL Lymph # (Auto) (1.2-3.4) K/uL [place] # (Auto) (0.11-0.59) K/uL Eos # (Auto) (0-0.5) K/uL Baso # (Auto) (0-0.2) K/uL Immature Gran # (Auto) (0.00-0.02) K/uL Toxic Vacuolation Echinocytes Sample Site POC pH (7.35-7.45) POC pCO2 (35-46) mmHg POC pO2 (80-95) mmHg POC HCO3 (19-24) humza/L POC Total CO2 (24-31) mmol/L POC Base Excess (-9-1.8) humza/L ABG pH (Temp Correct) (7.35-7.45) ABG pCO2 (Temp Corrct (35-46) mmHg POC ABG pO2 at Pt Temp POC ABG O2 Sat (90-95) % Enrique Test O2 Delivery Device POC O2 Rate Minute Ventilation POC FiO2 % Tidal Volume PEEP IPAP POC Sodium (135-144) mmol/L Sodium (136-145) mmol/L POC Potassium (3.3-5.0) mmol/L Potassium (3.5-5.1) mmol/L Chloride (98-107) mmol/L Carbon Dioxide (21-32) mmol/L Anion Gap (3-11) BUN (7-18) mg/dl Creatinine (0.6-1.4) mg/dl Est Cr Clr Drug Dosing ml/min Est GFR ( Amer) ml/min Est GFR (Non-Af Amer) ml/min BUN/Creatinine Ratio (10-20) Glucose (70-99) mg/dl POC Glucose 221 H (70-99) mg/dl POC Glucose (other) (70-99) mg/dl Lactate 1.9 (0.4-2.0) mmol/L Calcium (8.5-10.1) mg/dl Phosphorus (2.5-4.9) mg/dl Magnesium (1.8-2.4) mg/dl Troponin I (0-0.045) ng/ml Nasal Screen MRSA (PCR) Negative (Negative) Adenovirus (PCR) (NotDetected) B. pertussis DNA (PCR) (NotDetected) B.parapertussis DNA PCR (NotDetected) C. pneumoniae DNA (PCR) (NotDetected) Coronavirus OC43 (PCR) (NotDetected) Coronavirus HKU1 (PCR) (NotDetected) Coronavirus 229E (PCR) (NotDetected) COVID-19 Eval Order SARS-CoV-2 (PCR) (NotDetected) Coronavirus NL63 (PCR) (NotDetected) Human Metapneumovir PCR (NotDetected) Influenza Type A (PCR) (NotDetected) Influenza Type B (PCR) (NotDetected) Urine Legionella Ag M. pneumoniae (PCR) (NotDetected) Parainfluenza 1 (PCR) (NotDetected) Parainfluenza 2 (PCR) (NotDetected) Parainfluenza 3 (PCR) (NotDetected) Parainfluenza 4 (PCR) (NotDetected) RSV (PCR) (NotDetected) Entero/Rhino (PCR) (NotDetected) 12/30/20 12/30/20 12/30/20 Range/Units 08:43 08:24 07:40 WBC (4.8-10.8) K/uL RBC (4.7-6.1) M/uL Hgb (14.0-18.0) g/dL POC Hgb 16.0 (14.0-18.0) g/dl Hct (42-52) % POC Hct 47 (42-52) % MCV (80-100) fL MCH (25-34) pg MCHC (32-36) g/dL RDW Std Deviation (36.4-46.3) fL RDW Coeff of [place] (11.5-14.5) % Plt Count (130-400) K/uL MPV (7.4-10.4) fL Immature Gran % (Auto) % Neut % (Auto) % Lymph % (Auto) % [place] % (Auto) % Eos % (Auto) % Baso % (Auto) % Neut # (Auto) (1.4-6.5) K/uL Lymph # (Auto) (1.2-3.4) K/uL [place] # (Auto) (0.11-0.59) K/uL Eos # (Auto) (0-0.5) K/uL Baso # (Auto) (0-0.2) K/uL Immature Gran # (Auto) (0.00-0.02) K/uL Toxic Vacuolation Echinocytes Sample Site R Radial L Radial POC pH 7.38 7.42 (7.35-7.45) POC pCO2 39 33 L (35-46) mmHg POC pO2 46 L < 32 L (80-95) mmHg POC HCO3 23 21 (19-24) humza/L POC Total CO2 24 22 L (24-31) mmol/L POC Base Excess -2.0 -4.0 (-9-1.8) humza/L ABG pH (Temp Correct) 7.415 (7.35-7.45) ABG pCO2 (Temp Corrct 33 L (35-46) mmHg POC ABG pO2 at Pt Temp 29 POC ABG O2 Sat 81.0 L 58.0 L (90-95) % Enrique Test Pass Pass O2 Delivery Device Ventilator BIPAP POC O2 Rate 16 Minute Ventilation POC FiO2 100 % Tidal Volume PEEP IPAP 18 POC Sodium 136 (135-144) mmol/L Sodium (136-145) mmol/L POC Potassium 4.2 (3.3-5.0) mmol/L Potassium (3.5-5.1) mmol/L Chloride (98-107) mmol/L Carbon Dioxide (21-32) mmol/L Anion Gap (3-11) BUN (7-18) mg/dl Creatinine (0.6-1.4) mg/dl Est Cr Clr Drug Dosing ml/min Est GFR ( Amer) ml/min Est GFR (Non-Af Amer) ml/min BUN/Creatinine Ratio (10-20) Glucose (70-99) mg/dl POC Glucose (70-99) mg/dl POC Glucose (other) (70-99) mg/dl Lactate (0.4-2.0) mmol/L Calcium (8.5-10.1) mg/dl Phosphorus (2.5-4.9) mg/dl Magnesium (1.8-2.4) mg/dl Troponin I 0.026 (0-0.045) ng/ml Nasal Screen MRSA (PCR) (Negative) Adenovirus (PCR) (NotDetected) B. pertussis DNA (PCR) (NotDetected) B.parapertussis DNA PCR (NotDetected) C. pneumoniae DNA (PCR) (NotDetected) Coronavirus OC43 (PCR) (NotDetected) Coronavirus HKU1 (PCR) (NotDetected) Coronavirus 229E (PCR) (NotDetected) COVID-19 Eval Order SARS-CoV-2 (PCR) (NotDetected) Coronavirus NL63 (PCR) (NotDetected) Human Metapneumovir PCR (NotDetected) Influenza Type A (PCR) (NotDetected) Influenza Type B (PCR) (NotDetected) Urine Legionella Ag M. pneumoniae (PCR) (NotDetected) Parainfluenza 1 (PCR) (NotDetected) Parainfluenza 2 (PCR) (NotDetected) Parainfluenza 3 (PCR) (NotDetected) Parainfluenza 4 (PCR) (NotDetected) RSV (PCR) (NotDetected) Entero/Rhino (PCR) (NotDetected) Coding Level of Care Code Critical Care 1st 30-74 mins Diagnoses Acute and chronic respiratory failure with hypoxia J96.21
--- NOTE | 2020-12-31 09:58 | Procedure Note ---
Procedure Note Date of Service December 31, 2020 Procedure date: Noted above Procedure: Radial artery cannulation Pre-procedure Diagnosis: Need for invasive monitoring, hypotension/frequent blood draws Post-procedure Diagnosis: same as above Prior to Procedure: Informed Consent: The risks, benefits, indications, potential complications, and alternatives were explained to the patient's and informed consent obtained. Attending Staff: Allan Pham DO Skin Prep: Chlorhexidine Anesthesia: 3 mL 1% lidocaine without epinephrine The identity of the patient was confirmed and a bedside time out was performed. Description of Procedure: After sterile prep and sterile drape utilizing standard sterile technique the superficial skin of the right radial artery was anesthetized. The target artery was identified via dynamic ultrasound guidance and entered with a 20-gauge arrow Angiocath. Pulsatile bright red blood return was noted. Via modified Seldinger technique the self-contained guidewire was advanced and the Angiocath advanced over the guidewire. The guidewire was removed and brisk arterial blood return was noted. The pressure monitor was connected, and the arterial line was secured via commercial securement device. A sterile dressing was then applied. Complications: None Estimated blood loss: Trace Patient tolerated the procedure well. Coding CPT Codes Tubes, Drains, and Vasc Access - Tubes, Drains, and Vasc Access: [id number] Place Catheter In Artery ([id number]) [facility] [place] Procedure Codes (Charges) Tubes, Drains, and Vasc Access Procedure 1: Tubes, Drains, and Vasc Access: [id number] Place Catheter In Artery
[2020-12-31] MEDS: PEPTAMEN INTENSE VHP 1.0 CAL 1,000 ML BAG OG SCH (10:03)
--- NOTE | 2020-12-31 10:04 | Pharmacy Report ---
Pharmacy Glycemic Short Note 2 - Date of Service December 31, 2020 - Glycemic Short BSG Results (Last 24 hours): 12/30/20 12/30/20 12/30/20 12:03 14:09 17:01 Glucose 171 H POC Glucose 262 H POC Glucose (other) 193 H 12/30/20 12/30/20 12/31/20 21:09 23:25 04:59 Glucose POC Glucose POC Glucose (other) 219 H 258 H 286 H 12/31/20 12/31/20 05:32 08:16 Glucose 296 H POC Glucose 235 H POC Glucose (other) OUTPATIENT ANTIDIABETIC REGIMEN: * Novolog 70/30 mix 36 units BID, Novolog correctional sliding scale prior to meals * A1c ordered for 12/29 AM ASSESSMENT: 12/31 * Pt has received 57 units of insulin over the past 24hrs * 35 units of basal with Lantus * 22 units of bolus with NovoLog * BSGs [phone] mg/dl * Sustained hyperglycemia secondary to RTC steroids with solumedrol 40mg IV Q8hrs. Will increase both basal and correctional insulin; change NovoLog to Q4hrs * Pt starting continuous tube feeds with Peptamen instense [facility]- this will also exacerbate hyperglycemia. Will tighten carb coverage and administer Q4hrs based on CHO content of Peptamen. 12/29 * Patient received total of 40 units of insulin yesterday, of which only 15 units were NPH. * Fasting BSG elevated this AM at 246 mg/dL - appears evening NPH dose had been held for BSG of 79 mg/dL * Increased AM NPH to 15 units, lunch BSG trending up - could be basal deficient from held dose, had been on steroids prior to admission which contributed to hyperglycemia on admission. Gave small IV bolus at lunch and also small dose of Lantus to provider longer coverage * Continue NPH 15 units BID for now. Will add overnight checks. 12/28 * 89 yo male presenting to the ED with complaints of hyperglycemia secondary to outpatient steroid use. Patient had recently started prednisone 50 mg daily for possible COPD/upper respiratory infection. Patient was seen in primary care office on 12/27. * BSGs were significantly elevated on admission in the 400s, down to 337 mg/dL this morning with 8 units of IV regular insulin/fluids. * Patient is ordered a T2DM diet, will utilize NPH and Novolog for basal/bolus. BSG improved down to 241 mg/dL at lunch. * Steroids not continued inpatient. Would favor gradual reduction in BSGs as target BSG outpatient <200 mg/dL, will utilize goal range 140-180 mg/dL. PLAN FOR INPATIENT GLYCEMIC CONTROL: * Hold outpatient oral diabetes medications * Basal insulin * Lantus 35 units SQ x 1 dose this AM then 20-30 units SQ BID starting this evening; dose based on BSG * This will need tapered when steroids tapered * Bolus insulin * NovoLog per scale Q4hrs * Goal Range: Low 120 mg/dL - High 160 mg/dL * Correction Factor: 15 mg/dL/unit * Nutritional / Prandial insulin per carb ratio of 1 unit per 4 grams CHO consumed; CHO coverage will be given based on Peptamen tube feedings rate and number of CHO to be delivered over 4 hours PLAN FOR DISCHARGE: * TBD
[2020-12-31] MEDS: AZITHROMYCIN 250 MG in DEXTROSE 5% 250 ML IV SCH (10:05)
[2020-12-31] MEDS: DONEPEZIL HCL 5 MG TAB PO SCH (10:06)
[2020-12-31] MEDS: FINASTERIDE 5 MG TAB PO SCH (10:06)
[2020-12-31] MEDS: MIDAZOLAM HCL 1 MG/ML 2ML VIAL IV PRN ×7 (10:59→22:50)
[2020-12-31] MEDS: TUBE FEEDING WATER FLUSH OG SCH ×3 (13:48→19:50)
[2020-12-31] MEDS: AMIODARONE 200 MG TAB PO SCH (17:14)
--- NOTE | 2020-12-31 18:16 | Hospitalist Progress Note ---
Date of Service December 31, 2020 Assessment & Plan (1) Acute respiratory failure with hypoxemia: Occurred on 12/30 with increasing O2 demands overnight. Ddx includes worsening pneumonia (which I had stopped abx yesterday for lack of signs/symptoms of pneumonia) vs. mucus plug (which is indicated on CTA). PE ruled out. CHF unlikely given stable weight and stable BNP from yesterday (though elevated). - Intubated the morning of 12/30 by ICU physician. - Ventilator settings per ICU (2) Pneumonia: Reported cough at home, but no fevers. Breathing at baseline. CXRs have all shown atelectasis. No fever here. Leukocytosis on admission; now resolved, though was on steroids. Procalcitonin was 0.16. - Bio[employer] respiratory swab was positive for enterovirus/rhinovirus. - As above (3) Hyperglycemia: Due to steroid use. Usual blood sugars range from 200 - 300 per . Over 500 at home prior to admission. - Slowly improving at first, then jumped up to >300 again today. - Back on steroids, so will need to monitor closely. (4) Diabetes type 2, uncontrolled: A1c was 8.8% this admission. Given age, A1c goal is ~8.0% per pharmacy. - As above (5) Hypothyroidism: TSH was 4.0 in 04/2020. No signs/symptoms of hypo-/hyperthyroidism. - Continue home Synthroid 50 mcg (6) Chronic a-fib: Stable and well-controlled. - Continue amiodarone - Continue rivaroxaban (7) COPD (chronic obstructive pulmonary disease): Possible COPD exacerbation is what kicked this all off with oral steroids. - Breathing at baseline per patient on 12/29. Acute respiratory failure on 12/30. (8) DVT prophylaxis: On rivaroxaban for afib Admission and Anticipated Discharge Date Admission Date: December 28, 2020 Subjective Intubated and sedated. Review of Systems Review of Systems: Unobtainable due to endotracheal tube Physical Exam Constitutional: WD/WN, vitals as above + acute distress Eyes: EOM intact bilaterally; no conjunctival abnormality ENMT: external ear and nose normal, oropharynx normal Neck: trachea midline, no thyromegaly normal visual inspection Respiratory: + labored breathing Auscultation: + diminished lung sounds, + rales and + rhonchi Cardiovascular: RRR, no murmur, no edema Gastrointestinal (Abdomen): Inspection/Auscultation: abdomen normal to inspection; abdomen not distended Skin: no rashes, warm and dry Neurologic: + does not move all extremities and + not awake Psychiatric: Orientation: + not alert Results & Data Results & Data ([facility]) Vital Signs (Past 12 Hours) Vital Signs Temp Pulse Resp BP Pulse Ox 12/31/20 18:00 36.7 C 59 L 119/66 93 12/31/20 17:46 36.7 C 63 103/64 93 12/31/20 17:31 36.8 C 73 147/118 H 94 12/31/20 17:15 36.8 C 58 L 119/68 93 12/31/20 17:00 36.8 C 58 L 121/65 93 12/31/20 16:45 36.8 C 57 L 117/69 93 12/31/20 16:30 36.8 C 57 L 121/67 93 12/31/20 16:15 36.8 C 56 L 123/65 92 12/31/20 16:00 36.8 C 56 L 113/64 93 12/31/20 15:45 36.8 C 57 L 121/62 92 12/31/20 15:30 36.8 C 60 121/65 92 12/31/20 15:15 36.8 C 64 95/54 L 94 12/31/20 15:01 36.8 C 79 126/76 95 12/31/20 15:00 36.8 C 85 93 12/31/20 14:54 55 L 20 95 12/31/20 14:46 36.8 C 74 121/96 93 12/31/20 14:45 36.8 C 76 94 12/31/20 14:30 36.8 C 52 L 113/63 95 12/31/20 14:15 36.8 C 54 L 114/63 96 12/31/20 14:00 36.7 C 59 L 103/61 95 12/31/20 13:46 36.6 C 75 108/83 96 12/31/20 13:45 36.6 C 79 97 12/31/20 13:32 36.6 C 69 110/91 96 12/31/20 13:30 36.5 C 62 96 12/31/20 13:16 36.5 C 65 131/71 96 12/31/20 13:15 36.5 C 64 95 12/31/20 13:00 36.4 C L 61 130/73 96 12/31/20 12:46 36.4 C L 59 L 116/70 96 12/31/20 12:45 36.4 C L 60 96 12/31/20 12:32 36.4 C L 64 134/74 96 12/31/20 12:30 36.4 C L 96 12/31/20 12:16 36.4 C L 57 L 82/48 L 93 12/31/20 12:15 36.4 C L 59 L 94 12/31/20 12:00 36.4 C L 56 L 121/66 94 12/31/20 11:45 36.5 C 57 L 120/70 94 12/31/20 11:30 36.5 C 57 L 122/70 94 12/31/20 11:15 36.5 C 56 L 116/67 95 12/31/20 11:01 36.6 C 63 97 12/31/20 11:00 36.6 C 68 143/75 H 98 12/31/20 10:52 80 20 96 12/31/20 10:45 36.7 C 53 L 116/68 96 12/31/20 10:31 36.8 C 52 L 111/65 95 12/31/20 10:30 36.8 C 52 L 95 12/31/20 10:16 36.8 C 51 L 138/77 95 12/31/20 10:15 36.8 C 50 L 94 12/31/20 10:08 49 L 112/50 L 12/31/20 10:00 36.9 C 52 L 100/66 94 12/31/20 09:46 37.0 C 57 L 104/58 L 95 12/31/20 09:45 37.0 C 56 L 96 12/31/20 09:31 37.1 C 48 L 110/64 95 12/31/20 09:30 37.1 C 48 L 94 12/31/20 09:16 37.1 C 49 L 90/66 L 95 12/31/20 09:15 37.1 C 48 L 94 12/31/20 09:00 37.1 C 48 L 106/61 96 12/31/20 08:45 37.0 C 56 L 109/62 97 06/13/21 08:30 37.0 C 57 L 108/54 L 97 12/31/20 08:15 36.9 C 71 85/53 L 90 12/31/20 08:00 37.0 C 102 H 194/125 H 93 12/31/20 07:50 90 22 93 12/31/20 07:48 37.0 C 89 183/104 H 93 12/31/20 07:45 37.0 C 86 89 L 12/31/20 07:41 37.1 C 87 165/93 H 89 L 12/31/20 07:30 37.1 C 87 94 12/31/20 07:15 37.2 C 69 94 12/31/20 07:00 37.3 C 57 L 115/75 96 12/31/20 06:45 37.3 C 56 L 134/75 95 12/31/20 06:32 37.4 C 57 L 94 12/31/20 06:31 37.4 C 57 L 105/85 93 12/31/20 06:30 37.4 C 58 L 89 L 12/31/20 06:15 37.4 C 55 L 116/74 96 PG Care Time/CCT Total # of Minutes Spent Total Time Spent with Patient: Total time spent is greater than 50% in coordination of care (as documented) at patient's floor/unit and/or counseling patient: Coding Level of Care Code 94870 Subseq Hosp Care Lvl 3 Diagnoses Acute respiratory failure with hypoxemia J96.01 Pneumonia J18.9 Laterality: right Lung location: lower lobe of lung Pneumonia type: due to unspecified organism Hyperglycemia R73.9 Diabetes type 2, uncontrolled E11.65 Hypothyroidism E03.9 Hypothyroidism type: unspecified Chronic a-fib I48.2 COPD (chronic obstructive pulmonary disease) J44.0 COPD type: COPD with acute lower respiratory infection DVT prophylaxis Z29.9 (1) Pneumonia Laterality: right Lung location: lower lobe of lung Pneumonia type: due to unspecified organism Qualified Code(s): J18.9 - Pneumonia, unspecified organism (2) Hypothyroidism Hypothyroidism type: unspecified Qualified Code(s): E03.9 - Hypothyroidism, unspecified (3) COPD (chronic obstructive pulmonary disease) COPD type: COPD with acute lower respiratory infection Qualified Code(s): J44.0 - Chronic obstructive pulmonary disease with (acute) lower respiratory infection
[2020-12-31] MEDS: RIVAROXABAN 20 MG TAB PO SCH (19:50)
[2020-12-31] MEDS: ROSUVASTATIN CALCIUM 5 MG TAB PO SCH (19:50)
[2020-12-31] MEDS: INSULIN GLARGINE SOLOSTAR 100 UNITS/ML 3 ML PEN SC SCH (20:40)
[2021-01-01] MEDS: MIDAZOLAM HCL 1 MG/ML 2ML VIAL IV PRN ×4 (00:32→05:39)
[2021-01-01] MEDS: INSULIN ASPART 100 UNITS/ML 3 ML PEN SC SCH ×6 (00:50→20:40)
[2021-01-01] MEDS: TUBE FEEDING WATER FLUSH OG SCH ×6 (00:52→20:43)
[2021-01-01] MEDS: AMPICILLIN/SULBACTAM SOD 3,000 MG in 0.9 % SODIUM CHLORIDE 100 ML IV SCH ×2 (01:00→07:28)
[2021-01-01] MEDS: fentaNYL citrate 100 MCG/2 ML VIAL IV PRN ×5 (01:27→15:55)
[2021-01-01] MEDS: NOREPINEPHRINE/D5W 8 MG/508 ML BAG IV SCH ×3 (02:35→16:23)
[2021-01-01 05:03] LABS: BUN Creatinine Ratio 24.4 (10-20); Calcium 8.2 mg/dl (8.5-10.1); Creatinine Clr Calc Pharmacy 47.2 ml/min; Est GFR (African American) 71.8 ml/min; Est GFR (Non-African American) 61.9 ml/min; Magnesium 2.3 mg/dl (1.8-2.4); Potassium 4.1 mmol/L (3.5-5.1)
[2021-01-01 05:04] LABS: Phosphorus 3.1 mg/dl (2.5-4.9)
[2021-01-01 05:06] LABS: Hematocrit (blood only) 44.8 % (42-52); Hemoglobin 15.9 g/dL (14.0-18.0); Mean Corpuscular Hgb Conc 35.5 g/dL (32-36); Mean Corpuscular Volume 84.5 fL (80-100); Mean Platelet Volume 11.6 fL (7.4-10.4); Platelet Count 291 K/uL (130-400); RDW Coefficient of Variation 14.4 % (11.5-14.5); RDW Standard Deviation 44.4 fL (36.4-46.3); White Blood Count 31.96 K/uL (4.8-10.8)
[2021-01-01] MEDS: methylPREDNISolone 40 MG in SYRINGE 0 ML IV SCH (05:45)
[2021-01-01] MEDS: LEVOTHYROXINE SODIUM 50 MCG TABLET PO SCH (05:45)
[2021-01-01 06:01] LABS: Basophils # (auto) 0.01 K/uL (0-0.2); Immature Granulocytes # (auto) 0.26 K/uL (0.00-0.02); Immature Granulocytes % (auto) 0.8 %; Lymphocytes % (auto) 1.9 %; Monocytes # (auto) 1.42 K/uL (0.11-0.59); Monocytes % (auto) 4.4 %; Neutrophils # (auto) 29.67 K/uL (1.4-6.5); Neutrophils % (auto) 92.9 %
[2021-01-01] MEDS: PEPTAMEN INTENSE VHP 1.0 CAL 1,000 ML BAG OG SCH (08:06)
[2021-01-01] MEDS: AZITHROMYCIN 250 MG in DEXTROSE 5% 250 ML IV SCH (08:06)
[2021-01-01] MEDS: DONEPEZIL HCL 5 MG TAB PO SCH (08:07)
[2021-01-01] MEDS ORDERED: STAT IV Infusion **Titration per Protocol STA ×2 (08:09→17:02)
[2021-01-01] MEDS ORDERED: cefTRIAXone SODIUM 1,000 MG in DEXTROSE 5% 50 ML IV SCH (08:30)
--- NOTE | 2021-01-01 08:32 | Critical Care Progress Note ---
Date of Service January 01, 2021 Assessment & Plan (1) Acute and chronic respiratory failure with hypoxia: Discussed with hospitalist and discussed on multidisciplinary rounds. Reason Critically Ill: 89-year-old male with severe acute hypoxic respiratory failure PLAN: Neuro: We will start low-dose Precedex. He did have issues with bradycardia over the weekend. We will be very cautious with Precedex dosing. Continue fentanyl as needed. He is mentating well. It does appear that he has baseline dementia. Will consult palliative care. Resp: COPD Acute hypoxic respiratory failure. Weaning PEEP at this time. Not eligible for spontaneous breathing trial given increased respiratory rate. Will obtain a chest x-ray today. Chest CTA from 12/30/2020 reviewed which demonstrates mucous plugging and narrowing of the left upper lobe bronchus. Will need to consider bronchoscopy pending chest x-ray results. Will start MetaNeb q6hr. Acute COPD exacerbation -Continue nebs -Discontinued Solu-Medrol. Continue prednisone 40 mg daily. -Repeat Covid testing: Negative -Influenza negative -Rhinovirus positive CV: Atrial fibrillation: Rate controlled. We will hold Xarelto given the possibility of requiring a bronchoscopy. Maintain mean arterial pressure above 65. Wean Levophed off. He does not have central venous access at this time. Fluids/Renal: Mild hyponatremia present. Otherwise no significant issues. ID: Sputum cultures are unremarkable. Blood cultures negative. Procalcitonin negative. Will de-escalate from unasyn to Rocephin and change azithromycin to doxycycline. He failed azithromycin therapy as an outpatient. Urine Legionella antigen pending. MRSA screen negative. Respiratory bio fire testing positive for rhinovirus. White count is increasing which may be related to demargination from steroid use. Chest x-ray pending. He has been afebrile. GI/Nutrition: Continue tube feeds. Heme: Long-term anticoagulation DVT prophylaxis: Holding Xarelto today. Endocrine: ICU hyperglycemia protocol -Hyperglycemia secondary to steroids Vascular access: Peripheral IV, arterial line Code Status: Full code Disposition: ICU CRITICAL CARE TIME - I have personally spent 35 minutes of critical care time in the direct management of this patient. This is a life/limb threatening event. This includes time spent evaluating patient, direct bedside care, chart review, placing orders, interpretation of diagnostic studies, discussion with consultants, patient, and family members, as well as other required patient management activities. This time is exclusive of all separately billable procedures, and teaching time and separate from and in addition to any other critical care service time. Admission and Anticipated Discharge Date Admission Date: December 28, 2020 Subjective Patient seen and examined this morning. He is off all sedation. He is following commands. He is currently on a low-dose of Levophed. Review of Systems Review of Systems: Unobtainable due to endotracheal tube Physical Exam Constitutional: Patient is currently intubated and in restraints. He appears to be in mild distress. Eyes: PERRL, conjunctivae normal, anicteric sclerae ENMT: Intubated Neck: normal visual inspection Respiratory: + tachypneic Coarse breath sounds on the ventilator. No wheezing. Cardiovascular: RRR, no murmur, no edema Gastrointestinal (Abdomen): normal bowel sounds, soft, nontender, no hepatosplenomegaly Musculoskeletal: no cyanosis or clubbing, extremities motor strength 5/5 Neurologic: PERRL, EOMI, accommodation nl, no face palsy, no dysarthria Psychiatric: A+Ox3, euthymic affect Results & Data Results & Data ([facility]) Vital Signs (Past 12 Hours) Vital Signs Temp Pulse Pulse Resp BP BP Pulse Ox 01/01/21 07:45 94 H 20 95 01/01/21 07:12 63 01/01/21 07:00 98.8 F 63 62 20 124/75 119/60 93 01/01/21 06:44 59 L 01/01/21 06:30 98.6 F 61 93 01/01/21 06:00 98.4 F 69 114/64 92 01/01/21 05:30 98.4 F 109 H 96 01/01/21 05:06 54 L 20 94 01/01/21 05:00 98.2 F 62 113/66 93 01/01/21 04:30 98.2 F 65 93 01/01/21 04:01 98.2 F 63 117/65 94 01/01/21 04:00 98.2 F 63 94 01/01/21 03:30 98.4 F 58 L 93 01/01/21 03:00 98.4 F 59 L 114/66 93 01/01/21 02:30 98.4 F 58 L 92 01/01/21 02:00 98.2 F 58 L 120/69 93 01/01/21 01:38 57 L 20 93 01/01/21 01:30 98.2 F 58 L 92 01/01/21 01:01 98.2 F 58 L 93 01/01/21 01:00 98.2 F 58 L 119/65 93 01/01/21 00:30 98.2 F 61 91 01/01/21 00:00 98.2 F 59 L 92/79 L 92 12/31/20 23:30 98.2 F 60 91 12/31/20 23:01 98.2 F 67 118/71 90 12/31/20 23:00 98.2 F 67 92 12/31/20 22:30 98.4 F 68 88 L 12/31/20 22:20 59 L 20 93 12/31/20 22:00 98.6 F 58 L 125/71 93 12/31/20 21:30 98.4 F 59 L 93 12/31/20 21:00 98.4 F 60 113/66 93 12/31/20 20:30 98.4 F 72 138/72 99 vital signs, labs and imaging Coding Level of Care Code Critical Care 1st 30-74 mins Diagnoses Acute and chronic respiratory failure with hypoxia J96.21 Time Spent (min) 35
[2021-01-01] MEDS: FINASTERIDE 5 MG TAB PO SCH (08:45)
[2021-01-01] MEDS: INSULIN GLARGINE SOLOSTAR 100 UNITS/ML 3 ML PEN SC SCH ×2 (08:46→20:44)
[2021-01-01] MEDS ORDERED: predniSONE 20 MG TAB PO SCH (09:00)
--- NOTE | 2021-01-01 09:15 | XRay Report ---
SINGLE VIEW CHEST CLINICAL HISTORY: Follow-up left lower lobe consolidation FINDINGS: 2 AP, portable, upright chest radiographs are compared to chest x-ray and chest CT dated 06/2021. Endotracheal and enteric tubes are unchanged in position. The examination is degraded by por table technique and patient rotation. There are calcified mediastinal and hilar lymph nodes. The hear t is enlarged noting atherosclerotic calcification of the thoracic aorta. The pulmonary vasculature i s noncongested. Scattered calcified granulomas are identified. There is a small left pleural effusion with left basilar consolidation. No pneumothorax is seen. The skeletal structures are osteopenic. Th e bony thorax is grossly intact. IMPRESSION: 1. Stable lines and tubes. 2. A small left pleural effusion with left basilar consolidation is similar in appearance to previous . 3. Cardiomegaly without radiographic evidence of congestive failure. ACT 112: Negative or not required by law. Electronically signed by: Esteban Rob M.D. 01/01/2021 9:14 AM
[2021-01-01] MEDS: DEXMEDETOMIDINE HCL 200 MCG in SODIUM CHLORIDE 0.9% 48 ML IV SCH ×3 (09:33→21:45)
[2021-01-01] MEDS: DOXYCYCLINE HYCLATE 100 MG CAP PO SCH ×2 (10:55→20:42)
[2021-01-01] MEDS: cefTRIAXone SODIUM 2,000 MG in DEXTROSE 5% 50 ML IV SCH (10:55)
--- NOTE | 2021-01-01 11:23 | Palliative Care Consultation ---
Date of Consultation January 01, 2021 Assessment & Plan (1) Palliative care encounter: Mr. Benjamin is an 89 year old male who presented to the [facility] with hyperglycemia as he was on steroids for a URI. Additional PMH includes: COPD, atrial fibrillation, DM2 and moderate dementia. While in the hospital, he started to experience shortness of breath and was hypoxic with an Sp02 in the 60's. He was evaluated on 12/30 and was intubated by the Program Consultant. Palliative Medicine was consulted to discuss overall goals of care. I was able to talk with the patient. He has not been tolerating sedatives due to hypotension, so he was fairly awake. There is some documented dementia noted. I explained about the goal to removing the breathing tube which he nodded, I did ask if he would decline afterwards and be increasingly short of breath; if he would want the breathing tube back in, he shook his head. I did state that if his breathing worsened instead we could give him medication to keep him comfortable, knowing he would likely pass away, he made an 'ok' sign with his left hand. I was able to talk with Nahomi, the patients at [phone]. She knows that things are unlikely to be favorable for her filler leaf cutter long. They have had conversations before and he has stated that the would not want filler leaf cutter long ventilation if he was not showing signs of improvement. I talked about code status and she indicated that she would not want him to have CPR/shocking in the event of cardiac arrest. Pt changed to a conditional code in the computer since he is already intubated. The patient is followed by [facility] and I received permission from Mrs. Benjamin that I could provide TIFFANIE Gibson an update as she called and requested one. Paige stated taht she has been visiting with the family ofted for his COPD and have started goals of care conversations. She will continue to support Nahomi. The goal will be to do spontaneous breathing trials and hopeful extubation. I explained what that meant and confirmed that if extubated, she would not want him reintubated, and would rather, at that point, transition to comfort measures only if he did not tolerate being off of the endotracheal tube. Palliative will follow. (2) Diabetes type 2, uncontrolled: (3) Hypoxia: (4) Weakness: History of Present Illness Reason for Consultation: Goals of care Requesting Physician: Dr. Payne Attending Physician: Vance Natarajan MD History of Present Illness Mr. Benjamin is an 89 year old male who presented to the [facility] with hyperglycemia as he was on steroids for a URI. Additional PMH includes: COPD, atrial fibrillation, DM2 and moderate dementia. While in the hospital, he started to experience shortness of breath and was hypoxic with an Sp02 in the 60's. He was evaluated on 12/30 and was intubated by the Program Consultant. Palliative Medicine was consulted to discuss overall goals of care. Please see A/P for further details. Thanks for involving Palliative with this patient. Allergies Allergy/AdvReac Type Severity Reaction Status Date / Time atorvastatin AdvReac Intermediate leg pain Verified 12/28/20 02:02 Home Medications Medication Instructions Recorded Confirmed Type cholecalciferol (vitamin D3) 1,000 unit PO BID 07/16/18 12/28/20 History [Vitamin D3] ipratropium-albuterol 3 ml INHALATION Q4 PRN 07/16/18 12/28/20 History lancets 33 gauge #100 ea 02/08/19 12/25/20 History vit C 250 mg-vit E 90 mg-zinc 40 1 tab PO QAM 02/08/19 12/28/20 History mg-copper 1 [id number] capsule Calcium 600 + D(3) 1 cap PO QPM 09/01/19 12/28/20 History acetaminophen 325 mg capsule 650 mg PO Q4H PRN cap 10/13/19 12/28/20 History ostomy supplies #10 ea 11/12/19 12/25/20 Rx ostomy supplies #2 box 11/12/19 12/25/20 Rx rivaroxaban 20 mg tablet 20 mg PO QPM #90 tab 03/24/20 12/28/20 Rx insulin aspart U-100 100 unit/mL See Rx Instructions SQ TID #1 box 05/25/20 12/28/20 Rx (3 mL) subcutaneous pen MDD 17 units a day levothyroxine 50 mcg tablet 50 mcg PO QAM #90 tab 06/22/20 12/28/20 Rx albuterol sulfate 90 mcg/actuation 2 puff INHALATION Q4 PRN #18 g 02/26/21 06/10 /21 Rx aerosol inhaler rosuvastatin 5 mg tablet 5 mg PO QPM #90 tab 11/21/20 12/28/20 Rx OneTouch Ultra Blue Test Strip #400 ea NS 12/06/20 12/25/20 Rx pen needle, diabetic 32 gauge x #100 ea 12/06/20 12/25/20 Rx 5/32" insulin syringe-needle U-100 1 mL #200 ea 12/21/20 12/25/20 Rx 31 gauge x 5/16" amoxicillin 875 mg-potassium 1 tab PO BID #20 tab 12/25/20 12/28/20 Rx clavulanate 125 mg tablet amiodarone 200 mg tablet 200 mg PO 1700 #90 tab 12/28/20 Rx donepezil [Aricept] 5 mg PO QAM 12/28/20 12/28/20 History finasteride [Proscar] 5 mg PO QAM 12/28/20 12/28/20 History insulin asp prt-insulin aspart 36 unit SUBCUT BID 12/28/20 12/28/20 History [Novolog Mix 70-30 U-100 Insuln] Patient History Medical History (Updated 01/01/21 @ 14:16 by TIFFANIE Garcia) Carcinoma of lower lobe, 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) Cerumen impaction Chronic a-fib Controlled and stable Chronic back pain 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 - no issues - does not follow with specialist- stable Colon cancer S/p colectomy- has iliostomy- no chemo or XRT Glaucoma Hypertrophic cardiomyopathy mean gradient of 10mmHg on echo from 03/06 Hypoxia Lumbar stenosis Lung cancer s/p lobectomy - LLL- no chemo or XRT Osteoarthritis Palliative care encounter Pancreatitis ~20 years ago Renal cyst Ulcerative colitis hx Vitamin D deficiency Weakness Surgical History History of adenoidectomy History of appendectomy History of bronchoscopy History of cataract surgery bilateral History of colectomy History of colonoscopy History of colostomy History of ERCP History of herniorrhaphy around stoma History of lobectomy of lung (05/06/12) left lower lobe History of lung surgery History of partial pancreatectomy [facility] (Dr Escobar) ~20 years ago History of tonsillectomy S/P epidural steroid injection Family History Mother Diabetes Heart disease Myocardial infarction Hypertension Irritable bowel syndrome (IBS) Father Irritable bowel syndrome (IBS) Sister Heart disease Brother Heart disease Other Crohn's disease Kidney disease No family history of adverse response to anesthesia Denies family history of Ovarian cancer Prostate cancer Breast cancer Colorectal cancer Social History Smoking Status: Former smoker Second Hand Exposure: Yes (hx); Hx Alcohol Use: Yes Alcohol type: hard liquor Alcohol Intake Frequency Comment: 1 every couple days Hx Substance Use: No Preferred Language: Moroccan Communication Ability: Effective Visual Impairment: No Limitations Loss Control Representative Required: No Beliefs That Will Affect Care: None marital status: Current Living Situation: Spouse Current Living Situation Comment: House current occupational status: retired Feels Safe at Home: No Is there a partner from a previous relationship who is making you feel unsafe now?: No Dental Care, Regularly: Yes Seatbelt Use: always Assistive Devices: Oxygen - Continuous Review of Systems Review of Systems: [place] System Assessment Scale: communication by nodding, shaking head Pain: 1/3 AnxietY: 1/3 Shortness of breath: 1/3 Tiredness: 2/3 Palliative Performance Scale: 20% Physical Exam Constitutional: + ill appearing, + frail appearing and cooperative ENMT: Nose: + dry nasal mucous membranes Respiratory: normal respiratory effort Auscultation: + diminished lung sounds and + rhonchi Cardiovascular: Rate/Rhythm: regular rate and regular rhythm Heart Sounds: normal S1 and normal S2 Extremities: normal capillary refill Gastrointestinal (Abdomen): normal bowel sounds, soft, nontender, no hepatosplenomegaly Skin: + crusts, + dry skin and + pallor Psychiatric: Orientation: alert and oriented to person Results & Data ([facility]) Vital Signs (Past 12 Hours) Vital Signs Temp Pulse Pulse Resp BP BP Pulse Ox 01/01/21 11:06 106 H 24 92 01/01/21 08:00 94 H 01/01/21 07:45 94 H 20 95 01/01/21 07:12 63 01/01/21 07:00 37.1 C 63 62 20 124/75 119/60 93 01/01/21 06:44 59 L 01/01/21 06:30 37.0 C 61 93 01/01/21 06:00 36.9 C 69 114/64 92 01/01/21 05:30 36.9 C 109 H 96 01/01/21 05:06 54 L 20 94 01/01/21 05:00 36.8 C 62 113/66 93 01/01/21 04:30 36.8 C 65 93 01/01/21 04:01 36.8 C 63 117/65 94 01/01/21 04:00 36.8 C 63 94 01/01/21 03:30 36.9 C 58 L 93 01/01/21 03:00 36.9 C 59 L 114/66 93 01/01/21 02:30 36.9 C 58 L 92 01/01/21 02:00 36.8 C 58 L 120/69 93 01/01/21 01:38 57 L 20 93 01/01/21 01:30 36.8 C 58 L 92 01/01/21 01:01 36.8 C 58 L 93 01/01/21 01:00 36.8 C 58 L 119/65 93 01/01/21 00:30 36.8 C 61 91 01/01/21 00:00 36.8 C 59 L 92/79 L 92 12/31/20 23:30 36.8 C 60 91 PG Care Time/CCT Total # of Minutes Spent Total Time Spent with Patient: Total time spent is greater than 50% in coordination of care (as documented) at patient's floor/unit and/or counseling patient: 100 minutes with > 50% of that time spent assessing the patient, discussing goals of care with the patients , and collaborating with IDT Coding Level of Care Code 45981 Inpt Consult Level 4 Diagnoses Palliative care encounter Z51.5 Diabetes type 2, uncontrolled E11.65 Hypoxia R09.02 Weakness R53.1 Time Spent (min) 100
[2021-01-01] MEDS: ALBUTEROL 0.083% NEBU SOLN 3 ML VIAL NEB SCH ×2 (12:52→19:07)
--- NOTE | 2021-01-01 14:54 | Pharmacy Report ---
Pharmacy Glycemic Short Note 2 - Date of Service January 01, 2021 - Glycemic Short BSG Results (Last 24 hours): 12/31/20 12/31/20 12/31/20 12:01 16:12 20:01 Glucose POC Glucose (other) 290 H 214 H 190 H 01/01/21 01/01/21 01/01/21 00:48 04:31 04:37 Glucose 185 H POC Glucose (other) 186 H 192 H 01/01/21 01/01/21 08:21 11:07 Glucose POC Glucose (other) 233 H 221 H OUTPATIENT ANTIDIABETIC REGIMEN: * Novolog 70/30 mix 36 units BID, Novolog correctional sliding scale prior to meals * A1c ordered for 12/29 AM ASSESSMENT: 01/01: * Patient received 108 units of insulin yesterday, 65 units of which were basal * Blood sugars still elevated today but overall improved. IV solumedrol was discontinued today after morning dose and will be switched to prednisone 40mg daily tomorrow morning. Will continue with current Lantus scale today, but will adjust tomorrow and may consider the addition of AM NPH tomorrow. * Will slightly loosen NovoLog CR for this evening given last dose of IV steroid was @ 0600. 12/31 * Pt has received 57 units of insulin over the past 24hrs * 35 units of basal with Lantus * 22 units of bolus with NovoLog * BSGs [phone] mg/dl * Sustained hyperglycemia secondary to RTC steroids with solumedrol 40mg IV Q8hrs. Will increase both basal and correctional insulin; change NovoLog to Q4hrs * Pt starting continuous tube feeds with Peptamen [facility]- this will also exacerbate hyperglycemia. Will tighten carb coverage and administer Q4hrs based on CHO content of Peptamen. 12/29 * Patient received total of 40 units of insulin yesterday, of which only 15 units were NPH. * Fasting BSG elevated this AM at 246 mg/dL - appears evening NPH dose had been held for BSG of 79 mg/dL * Increased AM NPH to 15 units, lunch BSG trending up - could be basal deficient from held dose, had been on steroids prior to admission which contributed to hyperglycemia on admission. Gave small IV bolus at lunch and also small dose of Lantus to provider longer coverage * Continue NPH 15 units BID for now. Will add overnight checks. 12/28 * 89 yo male presenting to the ED with complaints of hyperglycemia secondary to outpatient steroid use. Patient had recently started prednisone 50 mg daily for possible COPD/upper respiratory infection. Patient was seen in primary care office on 12/27. * BSGs were significantly elevated on admission in the 400s, down to 337 mg/dL this morning with 8 units of IV regular insulin/fluids. * Patient is ordered a T2DM diet, will utilize NPH and Novolog for basal/bolus. BSG improved down to 241 mg/dL at lunch. * Steroids not continued inpatient. Would favor gradual reduction in BSGs as target BSG outpatient <200 mg/dL, will utilize goal range 140-180 mg/dL. PLAN FOR INPATIENT GLYCEMIC CONTROL: * Hold outpatient oral diabetes medications * Basal insulin * Lantus 30 units SQ this AM then 20-25-30 units SQ BID starting this evening; dose based on BSG * This will likely be tapered tomorrow with reduced steroid dose and possible * Bolus insulin * NovoLog per scale Q4hrs * Goal Range: Low 120 mg/dL - High 150 mg/dL * Correction Factor: 15 mg/dL/unit * Nutritional / Prandial insulin per carb ratio of 1 unit per 5 grams CHO consumed; CHO coverage will be given based on Peptamen tube feedings rate and number of CHO to be delivered over 4 hours PLAN FOR DISCHARGE: * TBD
--- NOTE | 2021-01-01 15:35 | Hospitalist Progress Note ---
Date of Service January 01, 2021 Assessment & Plan (1) Acute respiratory failure with hypoxemia: Occurred on 12/30 with increasing O2 demands overnight. Ddx includes worsening pneumonia (which I had stopped abx yesterday for lack of signs/symptoms of pneumonia) vs. mucus plug (which is indicated on CTA). PE ruled out. CHF unlikely given stable weight and stable BNP from yesterday (though elevated). - Intubated the morning of 12/30 by ICU physician. - Ventilator settings per ICU -> Settings improving; less O2 requirement. (2) Pneumonia: Reported cough at home, but no fevers. Breathing at baseline. CXRs have all shown atelectasis. No fever here. Leukocytosis on admission; now resolved, though was on steroids. Procalcitonin was 0.16. - [employer] respiratory swab was positive for enterovirus/rhinovirus. - As above (3) Hyperglycemia: Due to steroid use. Usual blood sugars range from 200 - 300 per . Over 500 at home prior to admission. - Slowly improving at first, then jumped up to >300 again today. - Back on steroids, so will need to monitor closely. (4) Diabetes type 2, uncontrolled: A1c was 8.8% this admission. Given age, A1c goal is ~8.0% per pharmacy. - As above (5) Hypothyroidism: TSH was 4.0 in 04/2020. No signs/symptoms of hypo-/hyperthyroidism. - Continue home Synthroid 50 mcg (6) Chronic a-fib: Stable and well-controlled. - Continue amiodarone - Continue rivaroxaban (7) COPD (chronic obstructive pulmonary disease): Possible COPD exacerbation is what kicked this all off with oral steroids. - Breathing at baseline per patient on 12/29. Acute respiratory failure on 12/30. (8) DVT prophylaxis: On rivaroxaban for afib Admission and Anticipated Discharge Date Admission Date: December 28, 2020 Subjective Intubated and sedated. Review of Systems Review of Systems: Unobtainable due to endotracheal tube Physical Exam Constitutional: WD/WN, vitals as above + acute distress Eyes: EOM intact bilaterally; no conjunctival abnormality ENMT: external ear and nose normal, oropharynx normal Neck: trachea midline, no thyromegaly normal visual inspection Respiratory: normal respiratory effort, lungs clear to auscultation + labored breathing Auscultation: + diminished lung sounds, + rales and + rhonchi Cardiovascular: RRR, no murmur, no edema Gastrointestinal (Abdomen): Inspection/Auscultation: abdomen normal to inspection; abdomen not distended Musculoskeletal: no cyanosis or clubbing, extremities motor strength 5/5 Skin: no rashes, warm and dry Neurologic: + does not move all extremities and + not awake Psychiatric: Orientation: + not alert Results & Data Results & [facility] ([facility]) Vital Signs (Past 12 Hours) Vital Signs Temp Pulse Pulse Pulse Resp BP BP 01/01/21 14:30 37.4 C 91 H 01/01/21 14:00 37.4 C 101 H 144/111 H 01/01/21 13:30 37.4 C 92 H 01/01/21 13:04 93 H 21 01/01/21 13:00 37.4 C 97 H 138/80 01/01/21 12:30 37.4 C 115 H 01/01/21 12:00 37.3 C 112 H 135/106 H 01/01/21 11:30 37.2 C 109 H 01/01/21 11:06 106 H 24 01/01/21 11:00 37.2 C 99 H 119 H 26 H 130/81 165/80 H 01/01/21 10:30 37.2 C 97 H 01/01/21 10:00 37.1 C 93 H 123/76 01/01/21 09:30 37.1 C 120 H 01/01/21 09:01 37.0 C 100 H 151/98 H 01/01/21 09:00 37.0 C 99 H 01/01/21 08:30 37.0 C 93 H 01/01/21 08:01 37.0 C 102 H 178/101 H 01/01/21 08:00 37.0 C 102 H 01/01/21 07:45 94 H 20 01/01/21 07:30 37.1 C 85 01/01/21 07:12 63 01/01/21 07:00 37.1 C 63 62 20 124/75 119/60 01/01/21 06:44 59 L 01/01/21 06:30 37.0 C 61 01/01/21 06:00 36.9 C 69 114/64 01/01/21 05:30 36.9 C 109 H 01/01/21 05:06 54 L 20 01/01/21 05:00 36.8 C 62 113/66 01/01/21 04:30 36.8 C 65 01/01/21 04:01 36.8 C 63 117/65 01/01/21 04:00 36.8 C 63 Pulse Ox 01/01/21 14:30 91 01/01/21 14:00 89 L 01/01/21 13:30 90 01/01/21 13:04 91 01/01/21 13:00 93 01/01/21 12:30 91 01/01/21 12:00 90 01/01/21 11:30 94 01/01/21 11:06 92 01/01/21 11:00 93 01/01/21 10:30 91 01/01/21 10:00 91 01/01/21 09:30 92 01/01/21 09:01 95 01/01/21 09:00 95 01/01/21 08:30 94 01/01/21 08:01 93 01/01/21 08:00 93 01/01/21 07:45 95 01/01/21 07:30 94 01/01/21 07:12 01/01/21 07:00 93 01/01/21 06:44 01/01/21 06:30 93 01/01/21 06:00 92 01/01/21 05:30 96 01/01/21 05:06 94 01/01/21 05:00 93 01/01/21 04:30 93 01/01/21 04:01 94 01/01/21 04:00 94 PG Care Time/CCT Total # of Minutes Spent Total Time Spent with Patient: Total time spent is greater than 50% in coordination of care (as documented) at patient's floor/unit and/or counseling patient: Coding Level of Care Code 63851 Subseq Hosp Care Lvl 3 Diagnoses Acute respiratory failure with hypoxemia J96.01 Pneumonia J18.9 Laterality: right Lung location: lower lobe of lung Pneumonia type: due to unspecified organism Hyperglycemia R73.9 Diabetes type 2, uncontrolled E11.65 Hypothyroidism E03.9 Hypothyroidism type: unspecified Chronic a-fib I48.2 COPD (chronic obstructive pulmonary disease) J44.0 COPD type: COPD with acute lower respiratory infection DVT prophylaxis Z29.9 (1) Pneumonia Laterality: right Lung location: lower lobe of lung Pneumonia type: due to unspecified organism Qualified Code(s): J18.9 - Pneumonia, unspecified organism (2) Hypothyroidism Hypothyroidism type: unspecified Qualified Code(s): E03.9 - Hypothyroidism, unspecified (3) COPD (chronic obstructive pulmonary disease) COPD type: COPD with acute lower respiratory infection Qualified Code(s): J44.0 - Chronic obstructive pulmonary disease with (acute) lower respiratory infection
[2021-01-01] MEDS: AMIODARONE 200 MG TAB PO SCH (16:22)
[2021-01-01] MEDS: fentaNYL DRIP 1,250 MCG/250 ML BAG IV SCH (17:23)
[2021-01-01] MEDS: ROSUVASTATIN CALCIUM 5 MG TAB PO SCH (20:43)
[2021-01-02] MEDS: INSULIN ASPART 100 UNITS/ML 3 ML PEN SC SCH ×6 (00:17→20:31)
[2021-01-02] MEDS: TUBE FEEDING WATER FLUSH OG SCH ×6 (00:59→20:51)
[2021-01-02] MEDS: ALBUTEROL 0.083% NEBU SOLN 3 ML VIAL NEB SCH ×3 (01:01→13:46)
[2021-01-02] MEDS: PEPTAMEN INTENSE VHP 1.0 CAL 1,000 ML BAG OG SCH (04:05)
[2021-01-02 05:51] LABS: BUN Creatinine Ratio 35.5 (10-20); Calcium 7.9 mg/dl (8.5-10.1); Creatinine Clr Calc Pharmacy 59.6 ml/min; Est GFR (Non-African American) 77.6 ml/min; Magnesium 2.1 mg/dl (1.8-2.4); Potassium 4.1 mmol/L (3.5-5.1)
[2021-01-02 05:57] LABS: Phosphorus 2.5 mg/dl (2.5-4.9)
[2021-01-02 06:12] LABS: Hematocrit (blood only) 45.9 % (42-52); Hemoglobin 15.9 g/dL (14.0-18.0); Mean Corpuscular Hemoglobin 29.7 pg (25-34); Mean Corpuscular Hgb Conc 34.6 g/dL (32-36); Mean Corpuscular Volume 85.8 fL (80-100); Mean Platelet Volume 11.7 fL (7.4-10.4); Platelet Count 260 K/uL (130-400); RDW Coefficient of Variation 14.6 % (11.5-14.5); Red Blood Count 5.35 M/uL (4.7-6.1)
[2021-01-02 06:27] LABS: Basophils # (auto) 0.02 K/uL (0-0.2); Immature Granulocytes # (auto) 0.29 K/uL (0.00-0.02); Immature Granulocytes % (auto) 0.7 %; Lymphocytes # (auto) 2.93 K/uL (1.2-3.4); Lymphocytes % (auto) 7.1 %; Monocytes # (auto) 2.49 K/uL (0.11-0.59); Neutrophils # (auto) 35.67 K/uL (1.4-6.5); Neutrophils % (auto) 86.2 %; RBC Morphology Unremarkable
[2021-01-02] MEDS: NOREPINEPHRINE/D5W 8 MG/508 ML BAG IV SCH ×2 (06:31→22:03)
[2021-01-02] MEDS: LEVOTHYROXINE SODIUM 50 MCG TABLET PO SCH (06:36)
[2021-01-02] MEDS: DOXYCYCLINE HYCLATE 100 MG CAP PO SCH ×2 (08:06→21:44)
[2021-01-02] MEDS: DONEPEZIL HCL 5 MG TAB PO SCH (08:06)
[2021-01-02] MEDS: predniSONE 20 MG TAB PO SCH (08:06)
[2021-01-02] MEDS: FINASTERIDE 5 MG TAB PO SCH (08:07)
[2021-01-02] MEDS: DEXMEDETOMIDINE HCL 200 MCG in SODIUM CHLORIDE 0.9% 48 ML IV SCH ×3 (08:22→15:45)
[2021-01-02] MEDS: INSULIN GLARGINE SOLOSTAR 100 UNITS/ML 3 ML PEN SC SCH (08:25)
[2021-01-02] MEDS: fentaNYL DRIP 1,250 MCG/250 ML BAG IV SCH (09:57)
--- NOTE | 2021-01-02 10:05 | XRay Report ---
XR chest 1V portable HISTORY: follow up left pleural effusion COMPARISON: Chest 01/01/2021. FINDINGS: Endotracheal tube terminates approximately 5 cm from the iwona. This remains unchanged. Na sogastric tube terminates below the diaphragm. The tip is not included on this study. No pneumothorax . Small to moderate left pleural effusion, unchanged. Calcified granuloma again noted within the righ t midlung zone. There is perihilar interstitial/vascular thickening just of mild congestive change. T his is also similar to the prior study. Calcified used on lymph nodes are again noted. IMPRESSION: 1. Satisfactory support line placement. 2. No change in the left pleural effusion and left basilar consolidation. 3. Mild central pulmonary vascular congestion without overt edema. This has slightly progressed. ACT 112: Negative or not required by law. Electronically signed by: Valentino Tran M.D. 01/02/2021 10:04 AM
[2021-01-02] MEDS ORDERED: MIDAZOLAM HCL 5 MG/ML 1 ML VIAL ONE (10:11)
--- NOTE | 2021-01-02 10:20 | Critical Care Progress Note ---
Date of Service January 02, 2021 Assessment & Plan (1) Acute and chronic respiratory failure with hypoxia: Discussed with hospitalist and discussed on multidisciplinary rounds. Reason Critically Ill: 89-year-old male with severe acute hypoxic respiratory failure PLAN: Neuro: Continue low-dose fentanyl. He is very intolerant of higher doses of sedation. He is mentating well. It does appear that he has baseline dementia. Palliative care consulted. Resp: COPD Acute hypoxic respiratory failure. Continue to wean vent settings as able. Chest CTA from 12/30/2020 reviewed which demonstrates mucous plugging and narrowing of the left upper lobe bronchus. We will perform bronchoscopy today given persistent left lower lobe infiltrate and increasing white count. Continue MetaNebs. Acute COPD exacerbation -Continue nebs -Discontinued Solu-Medrol. Continue prednisone 40 mg daily. -Repeat Covid testing: Negative -Influenza negative -Rhinovirus positive CV: Atrial fibrillation: Rate controlled. Restart Xarelto after bronchoscopy. Maintain mean arterial pressure above 65. Continue attempts at weaning Levophed off. Midodrine 5 mg TID started. He does not have central venous access at this time. Fluids/Renal: No acute issues at this time. ID: Sputum cultures are unremarkable. Blood cultures negative. Procalcitonin negative. Continue Rocephin and doxycycline. He failed azithromycin therapy as an outpatient Urine Legionella antigen pending. MRSA screen negative. Follow bronchoscopy cultures. Respiratory bio fire testing positive for rhinovirus. White count is increasing which may be related to demargination from steroid use. GI/Nutrition: Continue tube feeds. Heme: Long-term anticoagulation DVT prophylaxis: Restart Xarelto after bronchoscopy. Endocrine: ICU hyperglycemia protocol -Hyperglycemia secondary to steroids Vascular access: Peripheral IV, arterial line Code Status: Conditional code. Palliative care following. was updated over the phone. Disposition: ICU CRITICAL CARE TIME - I have personally spent 35 minutes of critical care time in the direct management of this patient. This is a life/limb threatening event. This includes time spent evaluating patient, direct bedside care, chart review, placing orders, interpretation of diagnostic studies, discussion with consultants, patient, and family members, as well as other required patient management activities. This time is exclusive of all separately billable procedures, and teaching time and separate from and in addition to any other critical care service time. Admission and Anticipated Discharge Date Admission Date: December 28, 2020 Subjective Patient seen and examined this morning. He is on a fentanyl infusion. He is able to follow commands. He denies any pain. He did not tolerate a spontaneous breathing trial this morning due to tachypnea and hypoxia. Review of Systems Review of Systems: Unobtainable due to endotracheal tube Physical Exam Constitutional: Patient is currently intubated and in restraints. He appears to be in mild distress. Eyes: PERRL, conjunctivae normal, anicteric sclerae ENMT: Intubated Neck: normal visual inspection Respiratory: + tachypneic Coarse breath sounds on the ventilator. No wheezing. Cardiovascular: RRR, no murmur, no edema Gastrointestinal (Abdomen): normal bowel sounds, soft, nontender, no hepatosplenomegaly Musculoskeletal: no cyanosis or clubbing, extremities motor strength 5/5 Neurologic: PERRL, EOMI, accommodation nl, no face palsy, no dysarthria Psychiatric: A+Ox3, euthymic affect Results & Data Results & Data ([facility]) Vital Signs (Past 12 Hours) Vital Signs Temp Pulse Pulse Resp BP Pulse Ox 01/02/21 09:14 69 01/02/21 08:45 98.6 F 82 89 L 01/02/21 08:34 81 21 92 01/02/21 08:30 98.6 F 75 88 L 01/02/21 08:15 98.8 F 75 14 92 01/02/21 08:01 98.8 F 73 94 01/02/21 08:00 98.8 F 76 167/81 H 93 01/02/21 07:50 85 18 96 01/02/21 07:45 98.8 F 87 94 01/02/21 07:37 68 68 22 90 01/02/21 07:30 98.8 F 61 91 01/02/21 07:15 99.0 F 73 92 01/02/21 07:01 99.0 F 80 177/87 H 94 01/02/21 07:00 99.0 F 79 93 01/02/21 06:45 99.0 F 76 94 01/02/21 06:30 99.1 F 47 L 90 01/02/21 06:15 99.1 F 52 L 88 L 01/02/21 06:01 99.0 F 68 90 01/02/21 06:00 99.0 F 70 120/79 01/02/21 05:45 99.1 F 85 91 01/02/21 05:30 99.3 F 89 91 01/02/21 05:15 99.3 F 96 H 94 01/02/21 05:06 96 H 24 91 01/02/21 05:00 99.5 F 99 H 92 01/02/21 04:45 80 01/02/21 04:30 99.7 F H 63 01/02/21 04:15 99.9 F H 57 L 95 01/02/21 04:00 99.9 F H 51 L 119/70 95 01/02/21 03:45 99.9 F H 49 L 94 01/02/21 03:30 99.9 F H 49 L 95 01/02/21 03:15 99.9 F H 51 L 93 01/02/21 03:00 99.9 F H 50 L 109/74 93 01/02/21 02:45 99.9 F H 50 L 92 01/02/21 02:30 99.9 F H 51 L 92 01/02/21 02:15 99.7 F H 51 L 92 01/02/21 02:00 99.5 F 51 L 124/72 92 01/02/21 01:45 99.9 F H 53 L 93 01/02/21 01:30 99.9 F H 51 L 92 01/02/21 01:15 99.9 F H 51 L 98 01/02/21 01:09 50 L 20 97 01/02/21 01:01 50 L 20 97 01/02/21 01:00 99.9 F H 50 L 116/72 97 01/02/21 00:45 99.9 F H 50 L 97 01/02/21 00:30 99.7 F H 48 L 96 01/02/21 00:15 99.5 F 49 L 96 01/02/21 00:01 99.9 F H 47 L 123/75 98 01/02/21 00:00 99.9 F H 50 L 97 01/01/21 23:45 99.7 F H 51 L 97 01/01/21 23:30 99.5 F 45 L 96 01/01/21 23:15 99.5 F 45 L 96 01/01/21 23:01 99.3 F 51 L 95 01/01/21 23:00 99.3 F 52 L 95/60 L 95 01/01/21 22:51 99.3 F 56 L 75/52 L 96 01/01/21 22:45 99.1 F 81 88 L 01/01/21 22:30 99.1 F 71 95 Vital signs, labs and imaging reviewed Coding Level of Care Code Critical Care 1st 30-74 mins Diagnoses Acute and chronic respiratory failure with hypoxia J96.21 Time Spent (min) 35
[2021-01-02] MEDS ORDERED: FAMOTIDINE 20 MG in SYRINGE 3 ML IV ONE (10:30)
--- NOTE | 2021-01-02 11:03 | Procedure Note ---
Procedure Note Date of Service January 02, 2021 Note Consent was obtained from the patient's over the phone as the patient was unable to give consent due to being on sedation and requiring mechanical ventilation. Timeout was completed before the procedure. Patient was on continuous Precedex and fentanyl infusion during the procedure. The patient was on mechanical ventilation during the bronchoscopy procedure. FiO2 was increased to 100%. The scope was introduced via the endotracheal tube. He has significant mucopurulent secretions noted at the level of the iwona. Sequential inspection of the tracheobronchial tree was completed up to the subsegmental airways. Left greater than right secretions noted with mucoid impaction. These were aspirated out. Washings were performed of the left lower lobe. Approximately 30 mL of fluid was aspirated. 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 Scope was then withdrawn to the level of the iwona. No active bleeding was seen. The scope was then completely withdrawn. Patient tolerated procedure well. Follow-up bronchoscopy cultures. Coding CPT Codes Pulmonary/Thoracic - Pulmonary and Thoracic: 72139 Dx bronchoscopy/BAL ([id number]) [facility] [place]odes ([place]) Pulmonary/Thoracic Procedure 1: Pulmonary and Thoracic: 63607 Dx bronchoscopy/BAL
[2021-01-02] MEDS: cefTRIAXone SODIUM 2,000 MG in DEXTROSE 5% 50 ML IV SCH (11:46)
[2021-01-02] MEDS: MIDODRINE HCL 2.5 MG TAB PO SCH ×2 (11:47→17:06)
--- NOTE | 2021-01-02 11:52 | XRay Report ---
XR chest 1V portable CLINICAL HISTORY: s/p bronchoscopy COMPARISON STUDY: January 02, 2021 at 9:24 hours FINDINGS: No pneumothorax. Redemonstration of hazy left retrocardiac opacity silhouetting left hemidiaphragm and could represent moderate left pleural effusion associated with atelectasis/infiltrate at the left lower lung. Diffuse reticular nodular prominence of pulmonary interstitium is again seen bilaterally. Cardiomediastinal silhouette is prominent. There are multiple patchy densities are seen superimposed on the mediastinal silhouette and might represent lymph nodes calcifications. Mild pulmonary vascular congestion is seen. Aorta is calcified.. Osseous structures: Osteopenia. Degenerative changes of the spine. Tip of endotracheal tube is projecting 4.5 cm above iwona. Stable appearance of the gastric tube with fenestrated side port below level of left hemidiaphragm an d tip outside of field of view. IMPRESSION: 1. Stable moderate left pleural effusion associated with atelectasis/infiltrate at the left lower eric ng. 2. Mild pulmonary vascular congestion and prominent cardiac silhouette. 3. Tip of endotracheal tube is projecting 4.5 cm above iwona. ACT 112: Negative or not required by law. The above report was generated using voice recognition software. It may contain grammatical, syntax o r spelling errors. Electronically signed by: Marianne Caraballo DO 01/02/2021 11:51 AM
--- NOTE | 2021-01-02 12:12 | Ultrasound Report ---
ULTRASOUND KIDNEYS AND BLADDER CLINICAL HISTORY: Left renal cyst. COMPARISON STUDY: Abdominal CT dated 11/17/2017. TECHNIQUE: Real-time, grayscale, and color flow sonography of the kidneys and bladder is performed. I mages are reviewed in the transverse and longitudinal planes. FINDINGS: Kidneys: The kidneys are normal in size and echotexture. The right kidney measures 12.0 x 5.0 x 4.9 c m and the left kidney measures 12.9 x 5.3 x 5.7 cm. There is no hydronephrosis. No shadowing renal c alculi are identified. A large exophytic cyst arising from the upper pole of the left kidney is uncha nged. This measures up to 12 cm. Additional smaller left renal cysts measure up to 2.3 cm. No perinep hric fluid is identified. Bladder: The bladder is decompressed around a Stock catheter and cannot be assessed. IMPRESSION: 1. The kidneys are normal in size and without hydronephrosis. 2. A large simple cyst arising from the upper pole of the left kidney is unchanged from prior studies . ACT 112: Negative or not required by law. Electronically signed by: Esteban Rob M.D. 01/02/2021 12:10 PM
[2021-01-02 12:20] LABS: Appearance Urine Clear (Clear); Bacteria Urine Automated Negative (Negative); Bilirubin Urine Negative (Negative); Blood Urine Trace (Negative); Color Urine Yellow; Glucose Urine UA Negative (Negative); Ketones Urine Negative (Negative); Leukocyte Esterase Urine Negative (Negative); Nitrite Urine Negative (Negative); Protein Urine Negative (Negative); RBC Urine Automated 0-4 /hpf (0-4); Urobilinogen Urine Negative (Negative); pH Urine 6.5 (4.5-7.5)
[2021-01-02 12:46] LABS: Eosinophil Body Fluid Man 0 %; Fluid Mono/Macrophage 4 %; Lymphocyte Body Fluid Man 0 %; Neutrophil Body Fluid Man 96 %
--- NOTE | 2021-01-02 13:11 | Hospitalist Progress Note ---
Date of Service January 02, 2021 Assessment & Plan (1) Acute respiratory failure with hypoxemia: Occurred on 12/30 with increasing O2 demands overnight. Likely due to rhinovirus and mucus plugging. - Intubated the morning of 12/30 by ICU physician. - Ventilator settings per ICU -> Settings improving; less O2 requirement. - Bronchoscopy on 01/02 with repeat cultures drawn. Continue ceftriaxone & doxycycline. (2) Pneumonia: Reported cough at home, but no fevers. Breathing at baseline. CXRs have all shown atelectasis. No fever here. Leukocytosis on admission; now resolved, though was on steroids. Procalcitonin was 0.16. - BioFire respiratory swab was positive for enterovirus/rhinovirus. - As above (3) Hyperglycemia: Due to steroid use. Usual blood sugars range from 200 - 300 per . Over 500 at home prior to admission. - Slowly improving at first, then jumped up to >300 again. - Back on steroids, so will need to monitor closely. (4) Diabetes type 2, uncontrolled: A1c was 8.8% this admission. Given age, A1c goal is ~8.0% per pharmacy. - As above (5) Hypothyroidism: TSH was 4.0 in 04/2020. No signs/symptoms of hypo-/hyperthyroidism. - Continue home Synthroid 50 mcg (6) Chronic a-fib: Stable and well-controlled. - Continue amiodarone - Continue rivaroxaban (7) COPD (chronic obstructive pulmonary disease): COPD exacerbation is what kicked this all off with oral steroids. - Breathing at baseline per patient on 12/29. Acute respiratory failure on 12/30. (8) DVT prophylaxis: On rivaroxaban for afib Admission and Anticipated Discharge Date Admission Date: December 28, 2020 Subjective Intubated and sedated. Review of Systems Review of Systems: Unobtainable due to endotracheal tube Physical Exam Constitutional: WD/WN, vitals as above + acute distress Eyes: EOM intact bilaterally; no conjunctival abnormality ENMT: external ear and nose normal, oropharynx normal Neck: trachea midline, no thyromegaly normal visual inspection Respiratory: normal respiratory effort, lungs clear to auscultation + labored breathing Auscultation: + diminished lung sounds, + rales and + rhonchi Cardiovascular: RRR, no murmur, no edema Gastrointestinal (Abdomen): Inspection/Auscultation: abdomen normal to inspection; abdomen not distended Musculoskeletal: no cyanosis or clubbing, extremities motor strength 5/5 Skin: no rashes, warm and dry Neurologic: + does not move all extremities and + not awake Psychiatric: Orientation: + not alert Results & Data Results & Data ([facility]) Vital Signs (Past 12 Hours) Vital Signs Temp Pulse Pulse Resp BP Pulse Ox 01/02/21 12:00 74 179/73 H 01/02/21 11:52 74 19 98 01/02/21 11:20 37.4 C 75 181/89 H 01/02/21 11:18 37.4 C 75 174/99 H 100 01/02/21 11:16 37.4 C 76 179/101 H 01/02/21 11:14 37.4 C 71 185/92 H 01/02/21 11:13 37.4 C 68 177/92 H 01/02/21 11:10 37.4 C 66 104/68 01/02/21 11:08 37.4 C 55 L 126/73 01/02/21 11:06 37.4 C 61 136/86 01/02/21 11:04 37.3 C 63 171/88 H 01/02/21 11:03 37.3 C 70 160/101 H 01/02/21 11:00 37.3 C 71 133/84 01/02/21 10:58 37.3 C 55 L 125/70 01/02/21 10:56 37.3 C 59 L 126/89 01/02/21 10:54 37.3 C 69 124/78 01/02/21 10:52 37.3 C 59 L 89/64 L 01/02/21 10:50 37.2 C 64 129/93 01/02/21 10:49 37.2 C 66 100 01/02/21 10:48 37.2 C 73 142/93 H 01/02/21 10:46 37.2 C 68 111/71 01/02/21 10:44 37.2 C 77 144/87 H 01/02/21 10:42 37.1 C 80 155/95 H 01/02/21 10:41 37.1 C 79 138/109 H 01/02/21 10:40 37.1 C 90 100 01/02/21 10:39 37.1 C 91 H 129/83 100 01/02/21 10:38 37.1 C 90 100 01/02/21 10:36 37.1 C 91 H 129/78 100 01/02/21 10:35 37.1 C 81 100 01/02/21 10:34 37.0 C 82 116/76 100 01/02/21 10:32 37.1 C 86 117/76 100 01/02/21 10:31 37.1 C 81 79/64 L 100 01/02/21 10:30 37.1 C 74 100 01/02/21 10:28 37.0 C 81 158/108 H 100 01/02/21 10:26 37.0 C 87 167/94 H 100 01/02/21 10:25 37.0 C 90 146/111 H 100 01/02/21 10:22 37.0 C 91 H 144/112 H 99 01/02/21 10:20 37.0 C 91 H 176/133 H 98 01/02/21 10:18 37.0 C 97 H 179/106 H 95 01/02/21 10:16 37.0 C 100 H 172/115 H 93 01/02/21 10:14 37.0 C 98 H 166/107 H 90 01/02/21 10:12 36.9 C 101 H 181/110 H 90 01/02/21 10:10 36.9 C 103 H 182/100 H 91 01/02/21 10:01 36.9 C 106 H 174/137 H 91 01/02/21 10:00 36.9 C 106 H 92 01/02/21 09:45 36.9 C 104 H 92 01/02/21 09:30 37.0 C 83 89 L 01/02/21 09:15 37.0 C 69 87 L 01/02/21 09:14 69 01/02/21 09:01 37.0 C 76 87 L 01/02/21 09:00 37.0 C 75 151/89 H 87 L 01/02/21 08:45 37.0 C 82 89 L 01/02/21 08:34 81 21 92 01/02/21 08:30 37.0 C 75 88 L 01/02/21 08:15 37.1 C 75 14 92 06/15/21 08:01 37.1 C 73 94 01/02/21 08:00 37.1 C 76 167/81 H 93 01/02/21 07:50 85 18 96 01/02/21 07:45 37.1 C 87 94 01/02/21 07:37 68 68 22 90 01/02/21 07:30 37.1 C 61 91 01/02/21 07:15 37.2 C 73 92 01/02/21 07:01 37.2 C 80 177/87 H 94 01/02/21 07:00 37.2 C 79 93 01/02/21 06:45 37.2 C 76 94 01/02/21 06:30 37.3 C 47 L 90 01/02/21 06:15 37.3 C 52 L 88 L 01/02/21 06:01 37.2 C 68 90 01/02/21 06:00 37.2 C 70 120/79 01/02/21 05:45 37.3 C 85 91 01/02/21 05:30 37.4 C 89 91 01/02/21 05:15 37.4 C 96 H 94 01/02/21 05:06 96 H 24 91 01/02/21 05:00 37.5 C 99 H 92 01/02/21 04:45 80 01/02/21 04:30 37.6 C H 63 01/02/21 04:15 37.7 C H 57 L 95 01/02/21 04:00 37.7 C H 51 L 119/70 95 01/02/21 03:45 37.7 C H 49 L 94 01/02/21 03:30 37.7 C H 49 L 95 01/02/21 03:15 37.7 C H 51 L 93 01/02/21 03:00 37.7 C H 50 L 109/74 93 01/02/21 02:45 37.7 C H 50 L 92 01/02/21 02:30 37.7 C H 51 L 92 01/02/21 02:15 37.6 C H 51 L 92 01/02/21 02:00 37.5 C 51 L 124/72 92 01/02/21 01:45 37.7 C H 53 L 93 01/02/21 01:30 37.7 C H 51 L 92 01/02/21 01:15 37.7 C H 51 L 98 PG Care Time/CCT Total # of Minutes Spent Total Time Spent with Patient: Total time spent is greater than 50% in coordination of care (as documented) at patient's floor/unit and/or counseling patient: Coding Level of Care Code 40826 Subseq Hosp Care Lvl 3 Diagnoses Acute respiratory failure with hypoxemia J96.01 Pneumonia J18.9 Laterality: right Lung location: lower lobe of lung Pneumonia type: due to unspecified organism Hyperglycemia R73.9 Diabetes type 2, uncontrolled E11.65 Hypothyroidism E03.9 Hypothyroidism type: unspecified Chronic a-fib I48.2 COPD (chronic obstructive pulmonary disease) J44.0 COPD type: COPD with acute lower respiratory infection DVT prophylaxis Z29.9 (1) Pneumonia Laterality: right Lung location: lower lobe of lung Pneumonia type: due to unspecified organism Qualified Code(s): J18.9 - Pneumonia, unspecified organism (2) Hypothyroidism Hypothyroidism type: unspecified Qualified Code(s): E03.9 - Hypothyroidism, unspecified (3) COPD (chronic obstructive pulmonary disease) COPD type: COPD with acute lower respiratory infection Qualified Code(s): J44.0 - Chronic obstructive pulmonary disease with (acute) lower respiratory infection
--- NOTE | 2021-01-02 13:16 | Palliative Care Progress Note ---
Date of Service January 02, 2021 Assessment & Plan (1) Palliative care encounter: Mr. Benjamin remains intubated. A bedside bronchoscopy was performed this morning with copious amounts of secretions removed. He is oxygenating relatively better, but still remains intubated and on pressors, requiring a little more support than yesterday. He is more lethargic and less interactive when I saw him today than yesterday. 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 They have had conversations before and he has stated that the would not want ferry terminal supervisor ventilation if he was not showing signs of improvement. I talked about code status yesterday and she indicated that she would not want him to have CPR/shocking in the event of cardiac arrest. Patients daughter is to be arriving from [place] today and we will continue to have conversations after they are able to visit. The goal will be to do spontaneous breathing trials and hopeful extubation. Yesterday, it was discussed that once extubated she would not want him reintubated, and would rather, at that point, transition to comfort measures only if he did not tolerate being off of the endotracheal tube. Palliative will follow and please contact us via [facility] when family arrives as well. (2) Diabetes type 2, uncontrolled: (3) Hypoxia: (4) Weakness: Admission and Anticipated Discharge Date Admission Date: December 28, 2020 Subjective Intubated. Bronch performed today. On pressors. Sedative off. More lethargic today. See A/P for further details. Review of Systems Review of Systems: [place] [facility] Assessment Scale: communication by nodding, shaking head Pain: 1/3 AnxietY: 1/3 Shortness of breath: 1/3 Tiredness: 2/3 Palliative Performance Scale: 20% Physical Exam Constitutional: + ill appearing, + frail appearing and cooperative ENMT: Nose: + dry nasal mucous membranes Respiratory: normal respiratory effort Auscultation: + diminished lung sounds and + rhonchi Cardiovascular: Rate/Rhythm: regular rate and regular rhythm Heart Sounds: normal S1 and normal S2 Extremities: normal capillary refill Gastrointestinal (Abdomen): normal bowel sounds, soft, nontender, no hepatosplenomegaly Skin: + crusts, + dry skin and + pallor Psychiatric: Orientation: alert and oriented to person Results & Data ([facility]) Vital Signs (Past 12 Hours) Vital Signs Temp Pulse Pulse Resp BP Pulse Ox 01/02/21 12:00 74 179/73 H 01/02/21 11:52 74 19 98 01/02/21 11:20 37.4 C 75 181/89 H 01/02/21 11:18 37.4 C 75 174/99 H 01/02/21 11:16 37.4 C 76 179/101 H 01/02/21 11:14 37.4 C 71 185/92 H 01/02/21 11:13 37.4 C 68 177/92 H 01/02/21 11:10 37.4 C 66 104/68 01/02/21 11:08 37.4 C 55 L 126/73 01/02/21 11:06 37.4 C 61 136/86 01/02/21 11:04 37.3 C 63 171/88 H 01/02/21 11:03 37.3 C 70 160/101 H 01/02/21 11:00 37.3 C 71 133/84 01/02/21 10:58 37.3 C 55 L 125/70 01/02/21 10:56 37.3 C 59 L 126/89 01/02/21 10:54 37.3 C 69 124/78 01/02/21 10:52 37.3 C 59 L 89/64 L 01/02/21 10:50 37.2 C 64 129/93 01/02/21 10:49 37.2 C 66 01/02/21 10:48 37.2 C 73 142/93 H 01/02/21 10:46 37.2 C 68 111/71 01/02/21 10:44 37.2 C 77 144/87 H 01/02/21 10:42 37.1 C 80 155/95 H 01/02/21 10:41 37.1 C 79 138/109 H 01/02/21 10:40 37.1 C 90 01/02/21 10:39 37.1 C 91 H 129/83 01/02/21 10:38 37.1 C 90 01/02/21 10:36 37.1 C 91 H 129/78 01/02/21 10:35 37.1 C 81 01/02/21 10:34 37.0 C 82 116/76 100 01/02/21 10:32 37.1 C 86 117/76 100 01/02/21 10:31 37.1 C 81 79/64 L 100 01/02/21 10:30 37.1 C 74 100 01/02/21 10:28 37.0 C 81 158/108 H 100 01/02/21 10:26 37.0 C 87 167/94 H 100 01/02/21 10:25 37.0 C 90 146/111 H 100 01/02/21 10:22 37.0 C 91 H 144/112 H 99 01/02/21 10:20 37.0 C 91 H 176/133 H 98 01/02/21 10:18 37.0 C 97 H 179/106 H 95 01/02/21 10:16 37.0 C 100 H 172/115 H 93 01/02/21 10:14 37.0 C 98 H 166/107 H 90 01/02/21 10:12 36.9 C 101 H 181/110 H 90 01/02/21 10:10 36.9 C 103 H 182/100 H 91 01/02/21 10:01 36.9 C 106 H 174/137 H 91 01/02/21 10:00 36.9 C 106 H 92 01/02/21 09:45 36.9 C 104 H 92 01/02/21 09:30 37.0 C 83 89 L 01/02/21 09:15 37.0 C 69 87 L 01/02/21 09:14 69 01/02/21 09:01 37.0 C 76 87 L 01/02/21 09:00 37.0 C 75 151/89 H 87 L 01/02/21 08:45 37.0 C 82 89 L 01/02/21 08:34 81 21 92 01/02/21 08:30 37.0 C 75 88 L 01/02/21 08:15 37.1 C 75 14 92 01/02/21 08:01 37.1 C 73 94 01/02/21 08:00 37.1 C 76 167/81 H 93 01/02/21 07:50 85 18 96 01/02/21 07:45 37.1 C 87 94 01/02/21 07:37 68 68 22 90 01/02/21 07:30 37.1 C 61 91 01/02/21 07:15 37.2 C 73 92 01/02/21 07:01 37.2 C 80 177/87 H 94 01/02/21 07:00 37.2 C 79 93 01/02/21 06:45 37.2 C 76 94 01/02/21 06:30 37.3 C 47 L 90 01/02/21 06:15 37.3 C 52 L 88 L 01/02/21 06:01 37.2 C 68 90 01/02/21 06:00 37.2 C 70 120/79 01/02/21 05:45 37.3 C 85 91 01/02/21 05:30 37.4 C 89 91 01/02/21 05:15 37.4 C 96 H 94 01/02/21 05:06 96 H 24 91 01/02/21 05:00 37.5 C 99 H 92 01/02/21 04:45 80 01/02/21 04:30 37.6 C H 63 01/02/21 04:15 37.7 C H 57 L 95 01/02/21 04:00 37.7 C H 51 L 119/70 95 01/02/21 03:45 37.7 C H 49 L 94 01/02/21 03:30 37.7 C H 49 L 95 01/02/21 03:15 37.7 C H 51 L 93 01/02/21 03:00 37.7 C H 50 L 109/74 93 01/02/21 02:45 37.7 C H 50 L 92 01/02/21 02:30 37.7 C H 51 L 92 01/02/21 02:15 37.6 C H 51 L 92 01/02/21 02:00 37.5 C 51 L 124/72 92 01/02/21 01:45 37.7 C H 53 L 93 01/02/21 01:30 37.7 C H 51 L 92 01/02/21 01:15 37.7 C H 51 L 98 PG Care Time/CCT Total # of Minutes Spent Total Time Spent with Patient: Total time spent is greater than 50% in coordination of care (as documented) at patient's floor/unit and/or counseling patient: 35 minutes with > 50% of that time spent assessing the patient, discussing goals of care and collaborating with IDT Coding Level of Care Code 27708 Subseq Hosp Care Lvl 3 Diagnoses Palliative care encounter Z51.5 Diabetes type 2, uncontrolled E11.65 Hypoxia R09.02 Weakness R53.1 Time Spent (min) 35
--- NOTE | 2021-01-02 14:05 | Pharmacy Report ---
Pharmacy Glycemic Short Note 2 - Date of Service January 02, 2021 - Glycemic Short BSG Results (Last 24 hours): 01/01/21 01/01/21 01/02/21 15:46 20:38 00:11 Glucose POC Glucose 109 H POC Glucose (other) 91 117 H 01/02/21 01/02/21 01/02/21 04:12 05:05 08:18 Glucose 157 H POC Glucose POC Glucose (other) 151 H 182 H OUTPATIENT ANTIDIABETIC REGIMEN: * Novolog 70/30 mix 36 units BID, Novolog correctional sliding scale prior to meals * A1c ordered for 12/29 AM ASSESSMENT: 01/02: * 87 units SQ insulin administered in last 24 hrs * Patient failed SBT this AM and will remain on vent * TF were placed on hold this AM for bronch, but will resume following the procedure * Patient has been tolerating Peptamen VHP @60cc/hr * Prednisone 40mg daily continues at this time - may trial NPH in the AM tomorrow instead of Lantus in the AM if no chance TF will be held 01/01: * Patient received 108 units of insulin yesterday, 65 units of which were basal * Blood sugars still elevated today but overall improved. IV solumedrol was discontinued today after morning dose and will be switched to prednisone 40mg daily tomorrow morning. Will continue with current Lantus scale today, but will adjust tomorrow and may consider the addition of AM NPH tomorrow. * Will slightly loosen NovoLog CR for this evening given last dose of IV steroid was @ 0600. PLAN FOR INPATIENT GLYCEMIC CONTROL: * Hold outpatient oral diabetes medications * Basal insulin * Lantus 30 units SQ this AM then 10-15-20 units SQ BID starting this evening; dose based on BSG * Bolus insulin * NovoLog per scale Q4hrs * Goal Range: Low 120 mg/dL - High 150 mg/dL * Correction Factor: 20 mg/dL/unit * Nutritional / Prandial insulin per carb ratio of 1 unit per 7 grams CHO consumed; CHO coverage will be given based on Peptamen tube feedings rate and number of CHO to be delivered over 4 hours PLAN FOR DISCHARGE: * TBD
[2021-01-02] MEDS: AMIODARONE 200 MG TAB PO SCH (17:06)
[2021-01-02] MEDS ORDERED: ALBUTEROL 0.083% NEBU SOLN 3 ML VIAL NEB PRN (18:42)
[2021-01-02] MEDS: ROSUVASTATIN CALCIUM 5 MG TAB PO SCH (21:44)
[2021-01-02] MEDS: FAMOTIDINE 20 MG in SYRINGE 3 ML IV SCH (21:48)
[2021-01-02] MEDS: RIVAROXABAN 20 MG TAB PO SCH (22:00)
[2021-01-03] MEDS: INSULIN ASPART 100 UNITS/ML 3 ML PEN SC SCH ×5 (00:35→23:59)
[2021-01-03] MEDS: TUBE FEEDING WATER FLUSH OG SCH (00:36)
[2021-01-03] MEDS ORDERED: SODIUM CHLOR 7% 4 ML NEB NEB STA (01:59)
[2021-01-03 02:00] LABS: iSTAT Art Bld Gas pCO2 Correct 39 mmHg (35-46); iSTAT Art Bld Gas pH Corrected 7.436 (7.35-7.45); iSTAT Arterial Blood Gas HCO3 26 meg/L (19-24); iSTAT Arterial Blood Gas pCO2 39 mmHg (35-46); iSTAT Arterial Blood Gas pH 7.44 (7.35-7.45); iSTAT Arterial Blood Gas pO2 57 mmHg (80-95); iSTAT Arterial Blood Gas pO2 C 57; iSTAT Carbon Dioxide 28 mmol/L (24-31); iSTAT Hematocrit 45 % (42-52); iSTAT Hemoglobin 15.3 g/dl (14.0-18.0); iSTAT Potassium 3.6 mmol/L (3.3-5.0); iSTAT Site Art Line; iSTAT Sodium 139 mmol/L (135-144)
[2021-01-03] MEDS ORDERED: ALBUT/IPRATROP 3MG/0.5MG NEB 3 ML VIAL NEB ONE (02:03)
--- NOTE | 2021-01-03 02:32 | Communication Note ---
Date of Service: January 03, 2021 Was informed by the patient's RN that the patient is coming increasingly hypoxic with higher oxygen requirements. ABG revealed PaO2 57 on 15 L oxygen mask. Patient placed on Vapotherm and oxygen saturations improved into the low 90s. Patient is not tachypneic and does not have labored breathing. Chest x-ray revealed that the left lung is donna out and presume the patient has mucous plug in the left main bronchus as he has had a large amount of thick secretions throughout the night and a weak cough. Spoke with Dr. Payne. Patient is DNI and I did speak with the patient's daughter and and made them aware of his current condition. They confirmed his DNI status. Unfortunately, patient would need reintubated for bronchoscopy as he is currently on 100% FiO2. Family did confirm that he would not want reintubation. Will attempt hypertonic nebs and CPT with aggressive pulmonary toileting in hope that he will be able to clear. Will update family on any further changes. CRITICAL CARE TIME - I have personally spent 30 minutes of critical care time in the direct management of this patient. This is a life/limb threatening event. This includes time spent evaluating patient, direct bedside care, chart review, placing orders, interpretation of diagnostic studies, discussion with consultants, patient, and family members, as well as other required patient management activities. This time is exclusive of all separately billable procedures, and teaching time and separate from and in addition to any other critical care service time. Coding Level of Care Code Critical Care reshma marshallt'l 30 min
[2021-01-03 05:14] LABS: Hematocrit (blood only) 44.8 % (42-52); Hemoglobin 15.4 g/dL (14.0-18.0); Mean Corpuscular Hemoglobin 29.5 pg (25-34); Mean Corpuscular Hgb Conc 34.4 g/dL (32-36); Mean Corpuscular Volume 85.8 fL (80-100); Mean Platelet Volume 11.8 fL (7.4-10.4); Platelet Count 195 K/uL (130-400); RDW Coefficient of Variation 14.6 % (11.5-14.5); RDW Standard Deviation 45.9 fL (36.4-46.3); Red Blood Count 5.22 M/uL (4.7-6.1); White Blood Count 27.65 K/uL (4.8-10.8)
[2021-01-03 06:03] LABS: Basophils # (auto) 0.01 K/uL (0-0.2); Eosinophils # (auto) 0.01 K/uL (0-0.5); Immature Granulocytes # (auto) 0.12 K/uL (0.00-0.02); Immature Granulocytes % (auto) 0.4 %; Lymphocytes % (auto) 10.1 %; Monocytes # (auto) 0.52 K/uL (0.11-0.59); Monocytes % (auto) 1.9 %; Neutrophils # (auto) 24.19 K/uL (1.4-6.5); Neutrophils % (auto) 87.6 %
[2021-01-03 06:23] LABS: BUN Creatinine Ratio 29.5 (10-20); Creatinine Clr Calc Pharmacy 73.6 ml/min; Est GFR (African American) 98.1 ml/min; Est GFR (Non-African American) 84.7 ml/min; Magnesium 1.8 mg/dl (1.8-2.4); Phosphorus 1.8 mg/dl (2.5-4.9)
[2021-01-03 06:33] LABS: Potassium 3.4 mmol/L (3.5-5.1)
[2021-01-03] MEDS: LEVOTHYROXINE SODIUM 50 MCG TABLET PO SCH (06:40)
[2021-01-03] MEDS ORDERED: ALBUTEROL 0.083% NEBU SOLN 3 ML VIAL NEB SCH (07:00)
--- NOTE | 2021-01-03 07:34 | XRay Report ---
XR chest 1V portable HISTORY: hypoxia COMPARISON: Chest 01/02/2021. FINDINGS: The endotracheal tube and nasogastric tube been removed. There is near complete opacificati on of the left hemithorax with left mediastinal shift. This favors collapse of the left lower lobe po ssibly secondary to mucous plugging given the acute change. Stable calcified mediastinal lymph nodes and a calcified granuloma within the right lung. IMPRESSION: Interval development of near complete opacification of the left hemithorax with left mediastinal shif t. This favors collapse of the left lower lobe possibly secondary to mucous plugging given the acute change. Follow-up bronchoscopy recommended for further evaluation. This finding was called/faxed to t he referring physician following dictation. ACT 112: Negative or not required by law. Electronically signed by: Valentino Tran M.D. 01/03/2021 7:33 AM
--- NOTE | 2021-01-03 08:30 | Critical Care Progress Note ---
Date of Service January 03, 2021 Assessment & Plan (1) Acute and chronic respiratory failure with hypoxia: Discussed with hospitalist and discussed on multidisciplinary rounds. Reason Critically Ill: 89-year-old male with severe acute hypoxic respiratory failure PLAN: Neuro: He is mentating well at present. No significant issues. Off all sedation. Resp: Acute hypoxic respiratory failure secondary to left lower lobe pneumonia and mucous plugging noted on the left. Status post bronchoscopy yesterday which demonstrated significant mucoid impaction. He is currently on high flow nasal cannula. He is a DNI. I suspect that he would not tolerate bronchoscopy well at this time. Continue hypertonic nebulizations twice daily and CPT 4 times daily to promote mucociliary clearance. Continue neb treatments. Extubated 01/02/2021. CV: Atrial fibrillation: Rate controlled. Continue Xarelto. Maintain mean arterial pressure above 65. Weaning Levophed off. Continue midodrine 5 mg TID. He does not have central venous access at this time. Fluids/Renal: No acute issues at this time. ID: Bronchoscopy cultures are pending. Blood cultures negative. Procalcitonin negative. Continue Rocephin and doxycycline. He failed azithromycin therapy as an outpatient Urine Legionella antigen pending. MRSA screen negative. Respiratory bio fire testing positive for rhinovirus. White count improving. GI/Nutrition: N.p.o. presently. Will consult speech therapy. Heme: Long-term anticoagulation DVT prophylaxis: Currently n.p.o. and unable to take Xarelto. Will need to consider initiation of Lovenox therapy. Endocrine: ICU hyperglycemia protocol -Hyperglycemia secondary to steroids Vascular access: Peripheral IV, arterial line Code Status: DNR/DNI. Palliative care following. Disposition: ICU CRITICAL CARE TIME - I have personally spent 33 minutes of critical care time in the direct management of this patient. This is a life/limb threatening event. This includes time spent evaluating patient, direct bedside care, chart review, placing orders, interpretation of diagnostic studies, discussion with consultants, patient, and family members, as well as other required patient management activities. This time is exclusive of all separately billable procedures, and teaching time and separate from and in addition to any other critical care service time. (2) Arterial hypotension: (3) Mucus plugging of bronchi: (4) Hypokalemia: (5) Atrial fibrillation: Admission and Anticipated Discharge Date Admission Date: December 28, 2020 Subjective Patient seen and examined this morning. He is talking on the phone with his . No significant events this morning. He is requiring high flow nasal cannula at a rate of 40 L and 80% FiO2. Chest x-ray completed yesterday dem onstrates left lung whiteout due to atelectasis. Appears mildly short of breath when speaking short sentences. Denies chest pain. Review of Systems Review of Systems: All systems reviewed & are unremarkable except as noted in HPI & below Physical Exam Constitutional: + ill appearing and + frail appearing Eyes: PERRL, conjunctivae normal, anicteric sclerae Respiratory: + tachypneic Auscultation: + diminished lung sounds and + rhonchi Cardiovascular: RRR, no murmur, no edema Gastrointestinal (Abdomen): normal bowel sounds, soft, nontender, no hepatosplenomegaly Musculoskeletal: no cyanosis or clubbing, extremities motor strength 5/5 Skin: no rashes, warm and dry Neurologic: PERRL, EOMI, accommodation nl, no face palsy, no dysarthria Psychiatric: A+Ox3, euthymic affect Results & Data Results & Data ([facility]) Vital Signs (Past 12 Hours) Vital Signs Temp Pulse Pulse Pulse Resp BP Pulse Ox 01/03/21 07:15 86 20 90 01/03/21 06:30 85 19 94 01/03/21 06:15 99.0 F 81 22 95 01/03/21 06:01 99.0 F 84 20 93 01/03/21 06:00 99.0 F 84 20 143/83 H 95 01/03/21 05:45 99.0 F 88 20 94 01/03/21 05:30 99.0 F 86 20 94 01/03/21 05:15 99.0 F 88 18 93 01/03/21 05:01 98.8 F 89 18 94 01/03/21 05:00 98.8 F 85 18 152/94 H 93 01/03/21 04:45 98.6 F 87 19 92 01/03/21 04:30 98.6 F 86 17 93 01/03/21 04:18 98.8 F 86 20 165/95 H 92 01/03/21 04:15 98.6 F 86 17 93 01/03/21 04:00 98.6 F 83 13 94 01/03/21 03:45 98.2 F 91 H 18 82 L 01/03/21 03:30 98.8 F 113 H 19 91 01/03/21 03:15 98.6 F 91 H 18 87 L 01/03/21 03:00 98.4 F 90 18 146/99 H 90 01/03/21 02:45 98.6 F 92 H 20 94 01/03/21 02:33 79 18 94 01/03/21 02:30 98.8 F 80 15 94 01/03/21 02:15 98.6 F 81 14 95 01/03/21 02:00 98.6 F 86 18 151/81 H 92 01/03/21 01:57 98.8 F 91 H 21 156/81 H 92 01/03/21 01:52 87 18 90 01/03/21 01:45 98.6 F 88 19 88 L 01/03/21 01:30 98.6 F 83 15 89 L 01/03/21 01:15 98.6 F 79 16 87 L 01/03/21 01:00 98.6 F 81 17 85 L 01/03/21 00:45 98.8 F 80 15 88 L 01/03/21 00:30 98.8 F 75 14 88 L 01/03/21 00:15 98.8 F 76 14 91 01/03/21 00:01 98.6 F 81 16 90 01/03/21 00:00 98.8 F 83 15 93/58 L 90 01/02/21 23:45 97.9 F 85 15 88 L 01/02/21 23:30 98.4 F 96 H 24 88 L 01/02/21 23:22 88 01/02/21 23:15 98.2 F 84 15 90 01/02/21 23:01 98.4 F 89 17 89 L 01/02/21 23:00 98.6 F 87 22 90/57 L 88 L 01/02/21 22:45 98.8 F 91 H 16 90 01/02/21 22:30 98.8 F 88 20 89 L 01/02/21 22:15 97.9 F 88 23 01/02/21 22:00 98.6 F 93 H 16 91/63 L 01/02/21 21:45 98.4 F 84 14 88 L 01/02/21 21:30 98.4 F 88 17 89 L 06/15/21 21:17 98.4 F 90 16 147/84 H 91 01/02/21 21:15 98.4 F 87 17 93 01/02/21 21:01 98.4 F 84 17 95 01/02/21 21:00 98.4 F 86 18 148/83 H 85 L 01/02/21 20:45 98.2 F 82 17 120/90 87 L 01/02/21 20:30 97.7 F 79 18 136/73 94 vital signs, labs and imaging reviewed Coding Level of Care Code Critical Care 1st 30-74 mins Diagnoses Acute and chronic respiratory failure with hypoxia J96.21 Arterial hypotension I95.9 Mucus plugging of bronchi T17.500A Hypokalemia E87.6 Atrial fibrillation I48.91 Time Spent (min) 33
[2021-01-03] MEDS: DEXMEDETOMIDINE HCL 200 MCG in SODIUM CHLORIDE 0.9% 48 ML IV SCH (08:59)
[2021-01-03] MEDS: PEPTAMEN INTENSE VHP 1.0 CAL 1,000 ML BAG OG SCH (09:00)
[2021-01-03] MEDS: MIDODRINE HCL 2.5 MG TAB PO SCH ×3 (09:00→17:17)
[2021-01-03] MEDS: DOXYCYCLINE HYCLATE 100 MG CAP PO SCH ×2 (09:05→22:09)
[2021-01-03] MEDS: predniSONE 20 MG TAB PO SCH (09:05)
[2021-01-03] MEDS: DONEPEZIL HCL 5 MG TAB PO SCH (09:06)
[2021-01-03] MEDS: cefTRIAXone SODIUM 2,000 MG in DEXTROSE 5% 50 ML IV SCH (09:08)
[2021-01-03] MEDS: FAMOTIDINE 20 MG in SYRINGE 3 ML IV SCH ×2 (09:08→22:46)
[2021-01-03] MEDS: POTASSIUM CHLORIDE / WTR 10 MEQ/100 ML PLCT IV SCH ×4 (09:08→12:09)
--- NOTE | 2021-01-03 11:01 | Pharmacy Report ---
Pharmacy Glycemic Short Note 2 - Date of Service January 03, 2021 - Glycemic Short BSG Results (Last 24 hours): 01/02/21 01/02/21 01/03/21 11:44 17:00 04:59 Glucose 80 POC Glucose (other) 121 H 104 H OUTPATIENT ANTIDIABETIC REGIMEN: * Novolog 70/30 mix 36 units BID, Novolog correctional sliding scale prior to meals * A1c ordered for 12/29 AM ASSESSMENT: 01/03: * 39 units SQ insulin given in last 24 hrs * Patient was extubated yesterday evening, tube feeds had been held and remain on hold. Speech to evaluate patient today to determine if diet may be advanced (currently NPO) * Hypoglycemia occurred overnight due to excessive basal insulin in the setting of held tube feeds and reduced stressors * Will hold basal insulin until BSG recovers to greater than 100 due to uncertain PO intake today - will likely give a low dose of Lantus rather than NPH again due to uncertain PO intake despite receipt of PO prednisone this AM 01/02: * 87 units SQ insulin administered in last 24 hrs * Patient failed SBT this AM and will remain on vent * TF were placed on hold this AM for bronch, but will resume following the procedure * Patient has been tolerating Peptamen VHP @60cc/hr * Prednisone 40mg daily continues at this time - may trial NPH in the AM tomorrow instead of Lantus in the AM if no chance TF will be held 01/01: * Patient received 108 units of insulin yesterday, 65 units of which were basal * Blood sugars still elevated today but overall improved. IV solumedrol was discontinued today after morning dose and will be switched to prednisone 40mg daily tomorrow morning. Will continue with current Lantus scale today, but will adjust tomorrow and may consider the addition of AM NPH tomorrow. * Will slightly loosen NovoLog CR for this evening given last dose of IV steroid was @ 0600. PLAN FOR INPATIENT GLYCEMIC CONTROL: * Hold outpatient oral diabetes medications * Basal insulin * Lantus - hold at this time, reassess later today, will likely give 10 units X 1 around noontime if BSG > 100 * Bolus insulin * NovoLog per scale Q6hrs * Goal Range: Low 110 mg/dL - High 140 mg/dL * Correction Factor: 25 mg/dL/unit * Nutritional / Prandial insulin per carb ratio of 1 unit per 8 grams CHO consumed PLAN FOR DISCHARGE: * TBD
[2021-01-03] MEDS: ALBUT/IPRATROP 3MG/0.5MG NEB 3 ML VIAL INH SCH ×4 (11:09→23:17)
[2021-01-03 11:43] LABS: Patient Temperature 0
[2021-01-03] MEDS ORDERED: INSULIN GLARGINE SOLOSTAR 100 UNITS/ML 3 ML PEN SC ONE (12:00)
[2021-01-03] MEDS ORDERED: POTASSIUM PHOSPHATE 21 MMOL in SODIUM CHLORIDE 0.9% 500 ML IV ONE (12:45)
[2021-01-03] MEDS: AMIODARONE 200 MG TAB PO SCH (17:17)
[2021-01-03] MEDS: NOREPINEPHRINE/D5W 8 MG/508 ML BAG IV SCH (18:16)
[2021-01-03] MEDS: SODIUM CHLOR 7% 4 ML NEB NEB SCH (19:38)
[2021-01-03] MEDS: ROSUVASTATIN CALCIUM 5 MG TAB PO SCH (22:09)
[2021-01-03] MEDS: RIVAROXABAN 20 MG TAB PO SCH (22:09)
--- NOTE | 2021-01-03 22:17 | Hospitalist Progress Note ---
Date of Service January 03, 2021 Assessment & Plan (1) Acute respiratory failure with hypoxemia: Occurred on 12/30 with increasing O2 demands overnight. Likely due to rhinovirus and mucus plugging. - Intubated the morning of 12/30 by ICU physician. - Ventilator settings per ICU -> Settings improving; less O2 requirement. - Bronchoscopy on 01/02 with repeat cultures drawn. Continue ceftriaxone & doxycycline. On 01/03 patient was extubated. Will monitor. Family does not want patient reintubated. will transfer out of ICU. (2) Pneumonia: Reported cough at home, but no fevers. Breathing at baseline. CXRs have all shown atelectasis. No fever here. Leukocytosis on admission; now resolved, though was on steroids. Procalcitonin was 0.16. - [employer] respiratory swab was positive for enterovirus/rhinovirus. - As above (3) Hyperglycemia: Due to steroid use. Usual blood sugars range from 200 - 300 per . Over 500 at home prior to admission. - Slowly improving at first, then jumped up to >300 again. - Back on steroids, so will need to monitor closely. (4) Diabetes type 2, uncontrolled: A1c was 8.8% this admission. Given age, A1c goal is ~8.0% per pharmacy. - As above (5) Hypothyroidism: TSH was 4.0 in 04/2020. No signs/symptoms of hypo-/hyperthyroidism. - Continue home Synthroid 50 mcg (6) Chronic a-fib: Stable and well-controlled. - Continue amiodarone - Continue rivaroxaban (7) COPD (chronic obstructive pulmonary disease): COPD exacerbation is what kicked this all off with oral steroids. - Breathing at baseline per patient on 12/29. Acute respiratory failure on 12/30. (8) DVT prophylaxis: On rivaroxaban for afib Admission and Anticipated Discharge Date Admission Date: December 28, 2020 Subjective 89 yo male is confused. He has been extubated and on high flow. Family does not want him reintubated. Review of Systems Review of Systems: All systems reviewed & are unremarkable except as noted in HPI & below Physical Exam Physical Exam: Constitutional: WD/WN, vitals as above Eyes: EOM intact bilaterally; no conjunctival abnormality ENMT: external ear and nose normal, oropharynx normal Neck: trachea midline, no thyromegaly normal visual inspection Respiratory: normal respiratory effort, lungs clear to auscultation + labored breathing Auscultation: + diminished lung sounds, + rales and + rhonchi Cardiovascular: RRR, no murmur, no edema Gastrointestinal (Abdomen): Inspection/Auscultation: abdomen normal to inspection; abdomen not distended Musculoskeletal: no cyanosis or clubbing, extremities motor strength 5/5 Skin: no rashes, warm and dry Psychiatric: Orientation: + not alert Results & Data Results & Data ([facility]) Vital Signs (Past 12 Hours) Vital Signs Temp Pulse Pulse Pulse Resp BP BP 01/03/21 21:40 92 H 20 01/03/21 21:39 36.7 C 96 H 20 133/80 01/03/21 19:40 77 20 01/03/21 18:16 37.6 C H 71 18 01/03/21 18:15 37.6 C H 71 18 97/57 L 01/03/21 18:01 37.6 C H 72 20 01/03/21 18:00 37.6 C H 72 19 101/55 L 01/03/21 17:46 37.6 C H 73 20 01/03/21 17:45 37.6 C H 73 19 100/58 L 01/03/21 17:31 37.5 C 77 20 01/03/21 17:30 37.5 C 74 19 93/59 L 01/03/21 17:16 37.5 C 79 18 01/03/21 17:15 37.5 C 77 22 100/60 01/03/21 17:01 37.5 C 81 17 01/03/21 17:00 37.5 C 77 24 104/62 01/03/21 16:45 37.5 C 78 22 112/49 L 01/03/21 16:31 37.5 C 79 22 109/56 L 01/03/21 16:30 37.5 C 81 19 01/03/21 16:16 37.5 C 78 17 01/03/21 16:15 37.5 C 75 19 101/57 L 01/03/21 16:01 37.5 C 76 18 01/03/21 16:00 37.5 C 76 18 100/58 L 01/03/21 15:45 37.5 C 79 18 119/63 01/03/21 15:31 37.5 C 84 22 01/03/21 15:30 37.5 C 83 20 139/75 01/03/21 15:16 37.5 C 78 21 01/03/21 15:15 37.5 C 81 82 22 117/71 01/03/21 15:01 37.6 C H 72 18 01/03/21 15:00 37.6 C H 74 18 93/60 L 01/03/21 14:46 37.6 C H 73 19 01/03/21 14:45 37.6 C H 73 18 94/56 L 01/03/21 14:31 37.5 C 80 22 01/03/21 14:30 37.5 C 80 19 98/63 L 01/03/21 14:16 37.5 C 79 17 01/03/21 14:15 37.6 C H 79 18 106/65 01/03/21 14:00 37.5 C 83 17 112/64 01/03/21 13:45 37.3 C 87 20 138/77 01/03/21 13:31 37.4 C 81 20 80/58 L 01/03/21 13:30 37.3 C 81 20 01/03/21 13:17 37.4 C 79 20 01/03/21 13:16 37.4 C 81 19 85/55 L 01/03/21 13:15 37.4 C 81 16 01/03/21 13:00 37.4 C 82 21 89/53 L 01/03/21 12:45 37.4 C 84 19 100/55 L 01/03/21 12:31 37.3 C 88 18 89/51 L 01/03/21 12:30 37.3 C 86 17 01/03/21 12:22 37.4 C 85 19 119/67 01/03/21 12:15 37.4 C 87 21 01/03/21 12:00 37.4 C 84 22 125/75 01/03/21 11:46 37.4 C 85 22 110/81 01/03/21 11:45 37.4 C 83 22 01/03/21 11:32 37.5 C 90 18 161/91 H 01/03/21 11:30 37.5 C 91 H 22 01/03/21 11:25 87 20 01/03/21 11:17 37.5 C 85 23 130/87 01/03/21 11:15 37.6 C H 82 22 01/03/21 11:01 37.5 C 76 19 93/61 L 01/03/21 11:00 37.5 C 76 19 01/03/21 10:46 37.5 C 80 20 125/76 01/03/21 10:45 37.5 C 80 20 01/03/21 10:31 37.5 C 82 19 01/03/21 10:30 37.5 C 80 22 142/73 H Pulse Ox 01/03/21 21:40 93 01/03/21 21:39 93 01/03/21 19:40 94 01/03/21 18:16 95 01/03/21 18:15 95 01/03/21 18:01 94 01/03/21 18:00 95 01/03/21 17:46 95 01/03/21 17:45 95 01/03/21 17:31 95 01/03/21 17:30 95 01/03/21 17:16 95 01/03/21 17:15 95 01/03/21 17:01 96 01/03/21 17:00 94 01/03/21 16:45 92 01/03/21 16:31 92 01/03/21 16:30 93 01/03/21 16:16 94 01/03/21 16:15 94 01/03/21 16:01 93 01/03/21 16:00 94 01/03/21 15:45 93 01/03/21 15:31 92 01/03/21 15:30 92 01/03/21 15:16 77 L 01/03/21 15:15 79 L 01/03/21 15:01 95 01/03/21 15:00 95 01/03/21 14:46 95 01/03/21 14:45 94 01/03/21 14:31 94 01/03/21 14:30 91 01/03/21 14:16 95 01/03/21 14:15 94 01/03/21 14:00 91 01/03/21 13:45 87 L 01/03/21 13:31 94 01/03/21 13:30 89 L 01/03/21 13:17 91 01/03/21 13:16 85 L 01/03/21 13:15 80 L 01/03/21 13:00 96 06/16/21 12:45 93 01/03/21 12:31 78 L 01/03/21 12:30 94 01/03/21 12:22 94 01/03/21 12:15 96 01/03/21 12:00 95 01/03/21 11:46 94 01/03/21 11:45 95 01/03/21 11:32 83 L 01/03/21 11:30 87 L 01/03/21 11:25 96 01/03/21 11:17 93 01/03/21 11:15 94 01/03/21 11:01 96 01/03/21 11:00 95 01/03/21 10:46 95 01/03/21 10:45 95 01/03/21 10:31 94 01/03/21 10:30 94 PG Care Time/CCT Total # of Minutes Spent Total Time Spent with Patient: Total time spent is greater than 50% in coordinat ion of care (as documented) at patient's floor/unit and/or counseling patient: Coding Level of Care Code 00982 Subseq Hosp Care Lvl 3 Diagnoses Acute respiratory failure with hypoxemia J96.01 Pneumonia J18.9 Laterality: right Lung location: lower lobe of lung Pneumonia type: due to unspecified organism Hyperglycemia R73.9 Diabetes type 2, uncontrolled E11.65 Hypothyroidism E03.9 Hypothyroidism type: unspecified Chronic a-fib I48.2 COPD (chronic obstructive pulmonary disease) J44.0 COPD type: COPD with acute lower respiratory infection DVT prophylaxis Z29.9 Time Spent (min) 35 (1) Hypothyroidism Hypothyroidism type: unspecified Qualified Code(s): E03.9 - Hypothyroidism, unspecified (2) COPD (chronic obstructive pulmonary disease) COPD type: COPD with acute lower respiratory infection Qualified Code(s): J44.0 - Chronic obstructive pulmonary disease with (acute) lower respiratory infection (3) Pneumonia Laterality: right Lung location: lower lobe of lung Pneumonia type: due to unspecified organism Qualified Code(s): J18.9 - Pneumonia, unspecified organism
[2021-01-04] MEDS: ALBUT/IPRATROP 3MG/0.5MG NEB 3 ML VIAL INH SCH ×6 (03:46→23:28)
[2021-01-04] MEDS: LEVOTHYROXINE SODIUM 50 MCG TABLET PO SCH (04:12)
[2021-01-04] MEDS: INSULIN ASPART 100 UNITS/ML 3 ML PEN SC SCH ×4 (06:23→21:03)
[2021-01-04 07:07] LABS: Hematocrit (blood only) 48.4 % (42-52); Hemoglobin 16.5 g/dL (14.0-18.0); Mean Corpuscular Hemoglobin 29.5 pg (25-34); Mean Corpuscular Hgb Conc 34.1 g/dL (32-36); Mean Corpuscular Volume 86.4 fL (80-100); Mean Platelet Volume 11.7 fL (7.4-10.4); Platelet Count 150 K/uL (130-400); RDW Coefficient of Variation 14.8 % (11.5-14.5); RDW Standard Deviation 46.8 fL (36.4-46.3); White Blood Count 30.16 K/uL (4.8-10.8)
[2021-01-04] MEDS: SODIUM CHLOR 7% 4 ML NEB NEB SCH ×2 (07:13→19:28)
[2021-01-04 07:38] LABS: BUN Creatinine Ratio 25.1 (10-20); Calcium 8.9 mg/dl (8.5-10.1); Creatinine Clr Calc Pharmacy 56.3 ml/min; Est GFR (African American) 87.9 ml/min; Est GFR (Non-African American) 75.8 ml/min; Magnesium 2.1 mg/dl (1.8-2.4); Potassium 4.3 mmol/L (3.5-5.1)
[2021-01-04] MEDS: MIDODRINE HCL 2.5 MG TAB PO SCH ×3 (07:59→17:10)
[2021-01-04] MEDS: DONEPEZIL HCL 5 MG TAB PO SCH (08:00)
[2021-01-04] MEDS: predniSONE 20 MG TAB PO SCH (08:00)
[2021-01-04] MEDS: DOXYCYCLINE HYCLATE 100 MG CAP PO SCH (08:00)
[2021-01-04] MEDS: FAMOTIDINE 20 MG in SYRINGE 3 ML IV SCH ×2 (08:03→20:15)
[2021-01-04] MEDS: PEPTAMEN INTENSE VHP 1.0 CAL 1,000 ML BAG OG SCH (08:11)
[2021-01-04 08:13] LABS: Basophils # (auto) 0.02 K/uL (0-0.2); Basophils % (auto) 0.1 %; Eosinophils # (auto) 0.01 K/uL (0-0.5); Immature Granulocytes # (auto) 0.16 K/uL (0.00-0.02); Immature Granulocytes % (auto) 0.5 %; Lymphocytes # (auto) 1.88 K/uL (1.2-3.4); Lymphocytes % (auto) 6.2 %; Monocytes # (auto) 1.49 K/uL (0.11-0.59); Monocytes % (auto) 4.9 %; Neutrophils % (auto) 88.3 %
[2021-01-04] MEDS ORDERED: INSULIN GLARGINE SOLOSTAR 100 UNITS/ML 3 ML PEN SC ONE (13:30)
[2021-01-04] MEDS: CEFEPIME 2,000 MG in SYRINGE 0 ML IV SCH ×2 (14:25→20:21)
[2021-01-04] MEDS: AMIODARONE 200 MG TAB PO SCH (17:08)
[2021-01-04] MEDS ORDERED: Nursing to Pharmacy Communication SCH (19:15)
[2021-01-04] MEDS: RIVAROXABAN 20 MG TAB PO SCH (20:18)
[2021-01-04] MEDS: ROSUVASTATIN CALCIUM 5 MG TAB PO SCH (20:18)
--- NOTE | 2021-01-04 22:31 | Hospitalist Progress Note ---
Date of Service January 04, 2021 Assessment & Plan (1) Acute respiratory failure with hypoxemia: Occurred on 12/30 with increasing O2 demands overnight. Likely due to rhinovirus and mucus plugging. - Intubated the morning of 12/30 by ICU physician. - Ventilator settings per ICU -> Settings improving; less O2 requirement. - Bronchoscopy on 01/02 with repeat cultures drawn. Continue ceftriaxone & doxycycline. On 01/03 patient was extubated. Will monitor. Family does not want patient reintubated. will transfer out of ICU. On 01/04 Patient continues to be on high flow oxygen. Patient does not appear to be doing well. (2) Pneumonia: Reported cough at home, but no fevers. Breathing at baseline. CXRs have all shown atelectasis. No fever here. Leukocytosis on admission; now resolved, though was on steroids. Procalcitonin was 0.16. - [employer] respiratory swab was positive for enterovirus/rhinovirus. - As above (3) Hyperglycemia: Due to steroid use. Usual blood sugars range from 200 - 300 per . Over 500 at home prior to admission. - Slowly improving at first, then jumped up to >300 again. - Back on steroids, so will need to monitor closely. (4) Diabetes type 2, uncontrolled: A1c was 8.8% this admission. Given age, A1c goal is ~8.0% per pharmacy. - As above (5) Hypothyroidism: TSH was 4.0 in 04/2020. No signs/symptoms of hypo-/hyperthyroidism. - Continue home Synthroid 50 mcg (6) Chronic a-fib: Stable and well-controlled. - Continue amiodarone - Continue rivaroxaban (7) COPD (chronic obstructive pulmonary disease): COPD exacerbation is what kicked this all off with oral steroids. - Breathing at baseline per patient on 12/29. Acute respiratory failure on 12/30. (8) DVT prophylaxis: On rivaroxaban for afib Admission and Anticipated Discharge Date Admission Date: December 28, 2020 Subjective Patient is lethargic but appears comfortable on high flow nasal cannula. Review of Systems Review of Systems: All systems reviewed & are unremarkable except as noted in HPI & below Physical Exam Physical Exam: Constitutional: WD/WN, vitals as above Eyes: EOM intact bilaterally; no conjunctival abnormality ENMT: external ear and nose normal, oropharynx normal Neck: trachea midline, no thyromegaly normal visual inspection Respiratory: normal respiratory effort, lungs clear to auscultation + labored breathing Auscultation: + diminished lung sounds, + rales and + rhonchi Cardiovascular: RRR, no murmur, no edema Gastrointestinal (Abdomen): Inspection/Auscultation: abdomen normal to inspection; abdomen not distended Musculoskeletal: no cyanosis or clubbing, extremities motor strength 5/5 Skin: no rashes, warm and dry Psychiatric: Orientation: + not alert Results & Data Results & Data ([facility]) Vital Signs (Past 12 Hours) Vital Signs Pulse Resp Pulse Ox 01/04/21 19:32 82 20 96 01/04/21 19:28 82 20 96 01/04/21 15:20 86 22 96 01/04/21 15:15 81 22 95 01/04/21 10:41 87 22 90 PG Care Time/CCT Total # of Minutes Spent Total Time Spent with Patient: Total time spent is greater than 50% in coordination of care (as documented) at patient's floor/unit and/or counseling patient: Coding Level of Care Code 67878 Subseq Hosp Care Lvl 2 Diagnoses Acute respiratory failure with hypoxemia J96.01 Pneumonia J18.9 Laterality: right Lung location: lower lobe of lung Pneumonia type: due to unspecified organism Hyperglycemia R73.9 Diabetes type 2, uncontrolled E11.65 Hypothyroidism E03.9 Hypothyroidism type: unspecified Chronic a-fib I48.2 COPD (chronic obstructive pulmonary disease) J44.0 COPD type: COPD with acute lower respiratory infection DVT prophylaxis Z29.9 Time Spent (min) 25 (1) Hypothyroidism Hypothyroidism type: unspecified Qualified Code(s): E03.9 - Hypothyroidism, unspecified (2) COPD (chronic obstructive pulmonary disease) COPD type: COPD with acute lower respiratory infection Qualified Code(s): J44.0 - Chronic obstructive pulmonary disease with (acute) lower respiratory infection (3) Pneumonia Laterality: right Lung location: lower lobe of lung Pneumonia type: due to unspecified organism Qualified Code(s): J18.9 - Pneumonia, unspecified organism
[2021-01-05] MEDS: ALBUT/IPRATROP 3MG/0.5MG NEB 3 ML VIAL INH SCH ×4 (03:39→15:26)
[2021-01-05] MEDS: LEVOTHYROXINE SODIUM 50 MCG TABLET PO SCH (06:03)
[2021-01-05] MEDS: SODIUM CHLOR 7% 4 ML NEB NEB SCH (07:14)
[2021-01-05 08:23] LABS: Basophils # (auto) 0.01 K/uL (0-0.2); Eosinophils # (auto) 0.02 K/uL (0-0.5); Eosinophils % (auto) 0.1 %; Hematocrit (blood only) 44.4 % (42-52); Hemoglobin 14.8 g/dL (14.0-18.0); Immature Granulocytes # (auto) 0.09 K/uL (0.00-0.02); Immature Granulocytes % (auto) 0.4 %; Lymphocytes # (auto) 1.36 K/uL (1.2-3.4); Mean Corpuscular Hemoglobin 29.5 pg (25-34); Mean Corpuscular Hgb Conc 33.3 g/dL (32-36); Mean Corpuscular Volume 88.6 fL (80-100); Mean Platelet Volume 11.7 fL (7.4-10.4); Monocytes # (auto) 1.34 K/uL (0.11-0.59); Monocytes % (auto) 5.9 %; Neutrophils # (auto) 19.74 K/uL (1.4-6.5); Neutrophils % (auto) 87.6 %; Platelet Count 170 K/uL (130-400); RDW Standard Deviation 48.7 fL (36.4-46.3); Red Blood Count 5.01 M/uL (4.7-6.1); White Blood Count 22.56 K/uL (4.8-10.8)
[2021-01-05] MEDS ORDERED: INSULIN GLARGINE SOLOSTAR 100 UNITS/ML 3 ML PEN SC SCH ×2 (09:00→21:00)
[2021-01-05 09:04] LABS: BUN Creatinine Ratio 33.3 (10-20); Calcium 8.5 mg/dl (8.5-10.1); Creatinine Clr Calc Pharmacy 59.6 ml/min; Est GFR (Non-African American) 77.6 ml/min; Phosphorus 2.3 mg/dl (2.5-4.9)
--- NOTE | 2021-01-05 09:04 | Pharmacy Report ---
Pharmacy Glycemic Short Note 2 - Date of Service January 05, 2021 - Glycemic Short BSG Results (Last 24 hours): 01/04/21 01/04/21 01/04/21 12:34 17:35 20:54 POC Glucose 191 H 179 H 224 H 01/05/21 08:28 POC Glucose 174 H OUTPATIENT ANTIDIABETIC REGIMEN: * Novolog 70/30 mix 36 units BID, Novolog correctional sliding scale prior to meals * A1c ordered for 12/29 AM ASSESSMENT: 01/05 * Pt has received 21 units of insulin over the past 24hrs * 10 units of basal with Lantus * 11 units of bolus with NovoLog * BSGs [id number] mg/dl * BSGs on the rise without basal insulin on board. Basal stopped 01/03 secondary to LOW BSG and NPO status (tube feeds dc). Slowing titrating back basal insulin. Pt received 10 unit of Lantus yesterday but AM fasting BSG elevated this AM. Will increase basal again today- conservatively. * Pt continues on prednisone 40mg daily- continue stressed dose CF+CR. PO intake in minimal- no changes needed to bolus insulin parameters 01/03: * 39 units SQ insulin given in last 24 hrs * Patient was extubated yesterday evening, tube feeds had been held and remain on hold. Speech to evaluate patient today to determine if diet may be advanced (currently NPO) * Hypoglycemia occurred overnight due to excessive basal insulin in the setting of held tube feeds and reduced stressors * Will hold basal insulin until BSG recovers to greater than 100 due to uncertain PO intake today - will likely give a low dose of Lantus rather than NPH again due to uncertain PO intake despite receipt of PO prednisone this AM 01/02: * 87 units SQ insulin administered in last 24 hrs * Patient failed SBT this AM and will remain on vent * TF were placed on hold this AM for bronch, but will resume following the procedure * Patient has been tolerating Peptamen VHP @60cc/hr * Prednisone 40mg daily continues at this time - may trial NPH in the AM tomorrow instead of Lantus in the AM if no chance TF will be held 01/01: * Patient received 108 units of insulin yesterday, 65 units of which were basal * Blood sugars still elevated today but overall improved. IV solumedrol was discontinued today after morning dose and will be switched to prednisone 40mg daily tomorrow morning. Will continue with current Lantus scale today, but will adjust tomorrow and may consider the addition of AM NPH tomorrow. * Will slightly loosen NovoLog CR for this evening given last dose of IV steroid was @ 0600. PLAN FOR INPATIENT GLYCEMIC CONTROL: * Hold outpatient oral diabetes medications * Basal insulin * Increase Lantus from 10 to 15 units SQ Q24hrs given in the AM * Bolus insulin: no change * NovoLog per scale Q6hrs * Goal Range: Low 110 mg/dL - High 140 mg/dL * Correction Factor: 25 mg/dL/unit * Nutritional / Prandial insulin per carb ratio of 1 unit per 8 grams CHO consumed PLAN FOR DISCHARGE: * TBD
[2021-01-05] MEDS: predniSONE 20 MG TAB PO SCH (09:45)
[2021-01-05] MEDS: DONEPEZIL HCL 5 MG TAB PO SCH (09:45)
[2021-01-05] MEDS: MIDODRINE HCL 2.5 MG TAB PO SCH ×2 (09:45→13:17)
[2021-01-05] MEDS: INSULIN ASPART 100 UNITS/ML 3 ML PEN SC SCH ×2 (09:49→13:04)
[2021-01-05] MEDS: FAMOTIDINE 20 MG in SYRINGE 3 ML IV SCH (09:53)
[2021-01-05] MEDS: CEFEPIME 2,000 MG in SYRINGE 0 ML IV SCH (09:59)
[2021-01-05 10:03] LABS: Magnesium 2.2 mg/dl (1.8-2.4); Potassium 4.6 mmol/L (3.5-5.1)
--- NOTE | 2021-01-05 15:50 | Palliative Care Progress Note ---
Date of Service January 05, 2021 Assessment & Plan (1) Palliative care encounter: I met with Mrs. Benjamin and their daughter at bedside. They are concerned that Cas is not improving and that he would not want to be here in the hospital. They would like to be able to take him home. We discussed his dependence on high flow O2 for survival at this time and my concern that he may not survive to go home if O2 support is de-escalated. We discussed using oxygen to maintain saturation versus titrating for his comfort. At this time, they are wanting to consider comfort directed approach. We talked about hospice support at home. They do have a hospital bed and oxygen concentrator at home but are not established with agency. Discussed with case management. They can arrange for hospice at home on Friday. We will wean high flow O2 with titration for comfort over the weekend. If he is stable for discharge home on Friday, that will be arranged. (2) Acute respiratory failure with hypoxemia: (3) Hypertrophic cardiomyopathy: (4) COPD (chronic obstructive pulmonary disease): (5) Obstructive sleep apnea syndrome in adult: Admission and Anticipated Discharge Date Admission Date: December 28, 2020 Subjective Family requested visit with palliative care to discuss options for Cas to go home. He is currently on 30L high flow NC. He is confused and lethargic. Per RN, he desats to low 80s when O2 is removed. Review of Systems Review of Systems: Unobtainable due to reduced consciousness [place] Symptom Assessment Scale PainAD 0/3 Dyspnea by observation 1/3 Palliative Performance Score 20% Physical Exam Constitutional: + lethargic restless Respiratory: + uses accessory muscles Neurologic: + confused; + not awake Results & Data ([facility]) Vital Signs (Past 12 Hours) Vital Signs Temp Pulse Resp BP BP Pulse Ox 01/05/21 15:28 85 20 94 01/05/21 13:17 89 110/70 01/05/21 10:58 84 92 01/05/21 10:56 83 18 92 01/05/21 09:43 75 104/64 01/05/21 07:15 68 20 94 01/05/21 07:01 97.9 F 72 15 119/61 94 PG Care Time/CCT Total # of Minutes Spent Total Time Spent with Patient: Total time spent is greater than 50% in coordination of care (as documented) at patient's floor/unit and/or counseling patient: total time spent 40 minutes with more than 50% of time spent on goals of care, prognosis, family education and support, hospice Coding Level of Care Code 147[address] [facility] 3 Diagnoses Palliative care encounter Z51.5 Acute respiratory failure with hypoxemia J96.01 Hypertrophic cardiomyopathy I42.2 COPD (chronic obstructive pulmonary disease) J44.0 COPD type: COPD with acute lower respiratory infection Obstructive sleep apnea syndrome in adult G47.33 (1) COPD (chronic obstructive pulmonary disease) COPD type: COPD with acute lower respiratory infection Qualified Code(s): J44.0 - Chronic obstructive pulmonary disease with (acute) lower respiratory infection
--- NOTE | 2021-01-05 22:13 | Hospitalist Progress Note ---
Date of Service January 05, 2021 Assessment & Plan (1) Acute respiratory failure with hypoxemia: Occurred on 12/30 with increasing O2 demands overnight. Likely due to rhinovirus and mucus plugging. - Intubated the morning of 12/30 by ICU physician. - Ventilator settings per ICU -> Settings improving; less O2 requirement. - Bronchoscopy on 01/02 with repeat cultures drawn. Continue ceftriaxone & doxycycline. On 01/03 patient was extubated. Will monitor. Family does not want patient reintubated. will transfer out of ICU. On 01/05 Patient continues to be on high flow oxygen. Patient does not appear to be doing well. Palliative care spoke with the family. Family is agreeable to converting patient to comfort measures. (2) Pneumonia: Reported cough at home, but no fevers. Breathing at baseline. CXRs have all shown atelectasis. No fever here. Leukocytosis on admission; now resolved, though was on steroids. Procalcitonin was 0.16. - [employer] respiratory swab was positive for enterovirus/rhinovirus. - As above (3) Hyperglycemia: Due to steroid use. Usual blood sugars range from 200 - 300 per . Over 500 at home prior to admission. - Slowly improving at first, then jumped up to >300 again. - Back on steroids, so will need to monitor closely. (4) Diabetes type 2, uncontrolled: A1c was 8.8% this admission. Given age, A1c goal is ~8.0% per pharmacy. - As above (5) Hypothyroidism: TSH was 4.0 in 04/2020. No signs/symptoms of hypo-/hyperthyroidism. - Continue home Synthroid 50 mcg (6) Chronic a-fib: Stable and well-controlled. - Continue amiodarone - Continue rivaroxaban (7) COPD (chronic obstructive pulmonary disease): COPD exacerbation is what kicked this all off with oral steroids. - Breathing at baseline per patient on 12/29. Acute respiratory failure on 12/30. (8) DVT prophylaxis: On rivaroxaban for afib Admission and Anticipated Discharge Date Admission Date: December 28, 2020 Subjective Patient is lethargic on high flow. Review of Systems Review of Systems: Unobtainable due to cognitive status Physical Exam Physical Exam: Constitutional: WD/WN, vitals as above Eyes: EOM intact bilaterally; no conjunctival abnormality ENMT: external ear and nose normal, oropharynx normal Neck: trachea midline, no thyromegaly normal visual inspection Respiratory: Auscultation: + diminished lung sounds, + rales and + rhonchi Cardiovascular: RRR, no murmur, no edema Gastrointestinal (Abdomen): nspection/Auscultation: abdomen normal to inspection; abdomen not distended Musculoskeletal: no cyanosis or clubbing, extremities motor strength 5/5 Skin: no rashes, warm and dry Psychiatric: Orientation: + not alert Results & Data Results & Data ([facility]) Vital Signs (Past 12 Hours) Vital Signs Pulse Resp BP Pulse Ox 01/05/21 15:28 85 20 94 01/05/21 13:17 89 110/70 01/05/21 10:58 84 92 01/05/21 10:56 83 18 92 PG Care Time/CCT Total # of Minutes Spent Total Time Spent with Patient: Total time spent is greater than 50% in coordination of care (as documented) at patient's floor/unit and/or counseling patient: Coding Level of Care Code 63288 Subseq Hosp Care Lvl 2 Diagnoses Acute respiratory failure with hypoxemia J96.01 Pneumonia J18.9 Laterality: right Lung location: lower lobe of lung Pneumonia type: due to unspecified organism Hyperglycemia R73.9 Diabetes type 2, uncontrolled E11.65 Hypothyroidism E03.9 Hypothyroidism type: unspecified Chronic a-fib I48.2 COPD (chronic obstructive pulmonary disease) J44.0 COPD type: COPD with acute lower respiratory infection DVT prophylaxis Z29.9 Time Spent (min) 25 (1) Hypothyroidism Hypothyroidism type: unspecified Qualified Code(s): E03.9 - Hypothyroidism, unspecified (2) COPD (chronic obstructive pulmonary disease) COPD type: COPD with acute lower respiratory infection Qualified Code(s): J44.0 - Chronic obstructive pulmonary disease with (acute) lower respiratory infection (3) Pneumonia Laterality: right Lung location: lower lobe of lung Pneumonia type: due to unspecified organism Qualified Code(s): J18.9 - Pneumonia, unspecified organism
[2021-01-06] MEDS: LORazepam 0.5 MG TAB SL PRN ×2 (08:15→15:28)
[2021-01-06] MEDS: MoRPHine SULFATE 5 MG/0.25 ML UDP PO PRN ×3 (14:30→21:48)
[2021-01-06] MEDS: ATROPINE SULFATE 1% OP SOLN 5 ML BTL OP PRN ×2 (18:19→21:15)
[2021-01-06] MEDS: HYOSCYAMINE SULFATE 0.125 MG TAB SL PRN (21:21)
[2021-01-06] MEDS ORDERED: LORazepam 0.5 MG/1 ML VIAL IV PRN (21:39)
--- NOTE | 2021-01-06 22:57 | Hospitalist Progress Note ---
Date of Service January 06, 2021 Assessment & Plan (1) Acute respiratory failure with hypoxemia: Occurred on 12/30 with increasing O2 demands overnight. Likely due to rhinovirus and mucus plugging. - Intubated the morning of 12/30 by ICU physician. - Ventilator settings per ICU -> Settings improving; less O2 requirement. - Bronchoscopy on 01/02 with repeat cultures drawn. Continue ceftriaxone & doxycycline. On 01/03 patient was extubated. Will monitor. Family does not want patient reintubated. will transfer out of ICU. On 01/05 Patient continues to be on high flow oxygen. Patient does not appear to be doing well. Palliative care spoke with the family. Family is agreeable to converting patient to comfort measures. ON 01/06Updated family PATIENT IS ON COMFORT MEASURES. (2) Pneumonia: Reported cough at home, but no fevers. Breathing at baseline. CXRs have all shown atelectasis. No fever here. Leukocytosis on admission; now resolved, though was on steroids. Procalcitonin was 0.16. - [employer] respiratory swab was positive for enterovirus/rhinovirus. - As above (3) Hyperglycemia: Due to steroid use. Usual blood sugars range from 200 - 300 per . Over 500 at home prior to admission. - Slowly improving at first, then jumped up to >300 again. - Back on steroids, so will need to monitor closely. (4) Diabetes type 2, uncontrolled: A1c was 8.8% this admission. Given age, A1c goal is ~8.0% per pharmacy. - As above (5) Hypothyroidism: TSH was 4.0 in 04/2020. No signs/symptoms of hypo-/hyperthyroidism. - Continue home Synthroid 50 mcg (6) Chronic a-fib: Stable and well-controlled. - Continue amiodarone - Continue rivaroxaban (7) COPD (chronic obstructive pulmonary disease): COPD exacerbation is what kicked this all off with oral steroids. - Breathing at baseline per patient on 12/29. Acute respiratory failure on 12/30. (8) DVT prophylaxis: On rivaroxaban for afib Admission and Anticipated Discharge Date Admission Date: December 28, 2020 Subjective Patient is confused. Review of Systems Review of Systems: Unobtainable due to cognitive status Physical Exam Physical Exam: Constitutional: WD/WN, vitals as above Appears comfortable. Psychiatric: Orientation: + not alert PG Care Time/CCT Total # of Minutes Spent Total Time Spent with Patient: Total time spent is greater than 50% in coordination of care (as documented) at patient's floor/unit and/or counseling patient: Coding Level of Care Code 96590 Subseq Hosp Care Lvl 1 Diagnoses Acute respiratory failure with hypoxemia J96.01 Pneumonia J18.9 Laterality: right Lung location: lower lobe of lung Pneumonia type: due to unspecified organism Hyperglycemia R73.9 Diabetes type 2, uncontrolled E11.65 Hypothyroidism E03.9 Hypothyroidism type: unspecified Chronic a-fib I48.2 COPD (chronic obstructive pulmonary disease) J44.0 COPD type: COPD with acute lower respiratory infection DVT prophylaxis Z29.9 (1) Hypothyroidism Hypothyroidism type: unspecified Qualified Code(s): E03.9 - Hypothyroidism, unspecified (2) COPD (chronic obstructive pulmonary disease) COPD type: COPD with acute lower respiratory infection Qualified Code(s): J44.0 - Chronic obstructive pulmonary disease with (acute) lower respiratory infection (3) Pneumonia Laterality: right Lung location: lower lobe of lung Pneumonia type: due to unspecified organism Qualified Code(s): J18.9 - Pneumonia, unspecified organism
[2021-01-07] MEDS: HYOSCYAMINE SULFATE 0.125 MG TAB SL PRN ×2 (02:14→07:40)
[2021-01-07] MEDS: ATROPINE SULFATE 1% OP SOLN 5 ML BTL OP PRN ×2 (05:23→07:40)
[2021-01-07] MEDS: MoRPHine SULFATE 5 MG/0.25 ML UDP PO PRN ×3 (06:04→07:47)
[2021-01-07] MEDS ORDERED: LORazepam 0.5 MG/1 ML VIAL IV PRN (06:32)
[2021-01-07] MEDS ORDERED: MoRPHine SULFATE 5 MG/0.25 ML UDP PO PRN (11:38)
[2021-01-07] MEDS ORDERED: GLYCOPYRROLATE 0.2 MG/ML VIAL IV SCH (12:00)
--- NOTE | 2021-01-07 13:33 | Palliative Care Progress Note ---
Date of Service January 07, 2021 Assessment & Plan (1) Palliative care encounter: Mr Benjamin appears to be actively dying. I called family at both numbers with no answer. Will add glycopyrrolate for secretions. I suspect that earlier restlessness was terminal agitation. I was called back to room when family arrived around noon. He is now having periods of apnea. We discussed that he is likely to within minutes to hours. Family is at bedside and appropriately tearful. Mrs. Benjamin tells me that she also lost her son suddenly in June due to an aneurysm. I stayed with family for approximately 15 minutes at which time, Mr. Benjamin peacefully. Family support provided. RN and hospitalist notified. (2) Acute respiratory failure with hypoxemia: Admission and Anticipated Discharge Date Admission Date: December 28, 2020 Subjective More restless this morning. Increased secretions. He has had several doses of roxanol and appears comfortable at this time. Review of Systems Review of Systems: Unobtainable due to reduced consciousness [place] Symptom Assessment Scale PainAD 0/3 Dyspnea by observation 0/3 Palliative Performance Score 10% Physical Exam Constitutional: + ill appearing ENMT: Mouth: + dry oral mucous membranes Respiratory: agonal respirations, audible rhonchi Cardiovascular: extensive mottling of upper and lower extremities Skin: cool to touch Neurologic: + obtunded Results & Data ([facility]) Vital Signs (Past 12 Hours) Vital Signs Temp Pulse Resp BP Pulse Ox 01/07/21 10:27 98.6 F 103 H 26 H 131/78 84 L PG Care Time/CCT Total # of Minutes Spent Total Time Spent with Patient: Total time spent is greater than 50% in coordination of care (as documented) at patient's floor/unit and/or counseling patient: total time spent 35 minutes with more than 50% of time spent on symptom management, prognosis and family support Coding Level of Care Code 91219 Subseq Hosp Care Lvl 3 Diagnoses Palliative care encounter Z51.5 Acute respiratory failure with hypoxemia J96.01
--- NOTE | 2021-01-10 12:41 | Discharge Summary ---
Date of Service January 07, 2021 Admission HPI Per Admitting Provider 89yo male with hyperglycemia while on steroids, concern for evolving pneumonia. Principal Diagnosis As noted below. Discharge Exam Exam is on note. Discharge Data Allergies Allergy/AdvReac Type Severity Reaction Status Date / Time atorvastatin AdvReac Intermediate leg pain Verified 12/28/20 02:02 Consultations 12/28/20 03:14 ED Decision to Admit Stat 12/30/20 08:01 Consult Mercury Washer Routine 12/30/20 08:43 Consult Cardiology Routine 01/01/21 08:08 Consult Palliative Care Routine Ordered Studies 12/30/20 09:13 US point of care ultrasound Routine 12/30/20 15:09 CT angio chest PE protocol Routine 01/02/21 09:36 US renal/blad retro comp Urgent Hospital Course (1) Acute respiratory failure with hypoxemia: Occurred on 12/30 with increasing O2 demands overnight. Likely due to rhinovirus and mucus plugging. - Intubated the morning of 12/30 by ICU physician. - Ventilator settings per ICU -> Settings improving; less O2 requirement. - Bronchoscopy on 01/02 with repeat cultures drawn. Continue ceftriaxone & doxycycline. On 01/03 patient was extubated. Will monitor. Family does not want patient reintubated. will transfer out of ICU. On 01/05 Patient continues to be on high flow oxygen. Patient does not appear to be doing well. Palliative care spoke with the family. Family is agreeable to converting patient to comfort measures. ON 01/06 Updated family PATIENT IS ON COMFORT MEASURES. On 01/07 Patient . (2) Pneumonia: Reported cough at home, but no fevers. Breathing at baseline. CXRs have all shown atelectasis. No fever here. Leukocytosis on admission; now resolved, though was on steroids. Procalcitonin was 0.16. - [employer] respiratory swab was positive for enterovirus/rhinovirus. - As above (3) Hyperglycemia: Due to steroid use. Usual blood sugars range from 200 - 300 per . Over 500 at home prior to admission. - Slowly improving at first, then jumped up to >300 again. - Back on steroids, so will need to monitor closely. (4) Diabetes type 2, uncontrolled: A1c was 8.8% this admission. Given age, A1c goal is ~8.0% per pharmacy. - As above (5) Hypothyroidism: TSH was 4.0 in 04/2020. No signs/symptoms of hypo-/hyperthyroidism. - Continue home Synthroid 50 mcg (6) Chronic a-fib: Stable and well-controlled. - Continue amiodarone - Continue rivaroxaban (7) COPD (chronic obstructive pulmonary disease): COPD exacerbation is what kicked this all off with oral steroids. - Breathing at baseline per patient on 12/29. Acute respiratory failure on 12/30. (8) DVT prophylaxis: On rivaroxaban for afib Total Time Total Time Spent Total Time Spent (In Minutes): less than 30 minutes Total Time Includes: Examination of the Patient Discharge Plan Discharge Items Patient Disposition: Coding Level of Care Code D/C Day Management <30 mins Diagnoses Acute respiratory failure with hypoxemia J96.01 Pneumonia J18.9 Laterality: right Lung location: lower lobe of lung Pneumonia type: due to unspecified organism Hyperglycemia R73.9 Diabetes type 2, uncontrolled E11.65 Hypothyroidism E03.9 Hypothyroidism type: unspecified Chronic a-fib I48.2 COPD (chronic obstructive pulmonary disease) J44.0 COPD type: COPD with acute lower respiratory infection DVT prophylaxis Z29.9
--- NOTE | 2021-01-10 12:57 | Death Pronouncement Note ---
Date of Service January 10, 2021 Pronouncement Note Admission Date Admission Date: December 28, 2020 Date and Time of Date of : 01/07/21 Time of : 12:15 Contributing Factors (1) Acute respiratory failure with hypoxemia: (2) Pneumonia: (3) Hyperglycemia: (4) Diabetes type 2, uncontrolled: (5) Hypothyroidism: (6) Chronic a-fib: (7) COPD (chronic obstructive pulmonary disease): (8) DVT prophylaxis: Hospital Course Hospital Course: As noted in discharge summary. Additional Data Confirmation of : no pulse, no respirations, no heart sounds and pupils fixed and dilated Family: at bedside (at time of ) Attending/PCP notified?: Yes Attending physician: Ole Flores Was code activated?: No Autopsy requested?: No Organ bank notified?: Yes Advance directives: Yes
== END 2021-01-07 15:13 | disposition expired | DRG 208 ==
LOC: ED 21:31 → SUATTDRO 12-28 03:26 → EDINP 12-28 03:26 → 2N 12-28 03:55 → 3W 12-29 21:19 → 2S 12-30 07:08 → 1E 12-30 07:41 → 3W 01-03 19:12